=== PATIENT | female | born 1965 | race Caucasian/White ===

== ENCOUNTER 2020-08-16 13:45 | Emergency (ER) | payer BC ==
--- NOTE | 2020-08-16 14:33 | EDM.PDOC ---
ED HPI GENERAL MEDICAL PROBLEM - General Chief Complaint: Lower Extremity Injury/Pain Stated Complaint: PAIN IN BOTH LEGS Time Seen by Provider: 08/16/20 14:00 Source of Information: Reports: Patient History Limitations: Reports: No Limitations - History of Present Illness INITIAL COMMENTS - FREE TEXT/NARRATIVE: Patient is a 55-year-old female who just moved here from [place] is not set up PMD presents today for pain to her lower extremities. Patient that she has some known diabetic foot wound that she is also concerned about. Patient states that took a long ride up here and is concerned she feels knots in her legs. Patient denies any shortness of breath or chest pain no fever chills. Patient states that she also has not been able get her diabetic medication is concerned about her sugar. left lower leg, left upper leg Pain Score (Numeric/FACES): 4 - Related Data Allergies Allergy/AdvReac Type Severity Reaction Status Date / Time No Known Allergies Allergy Verified 08/16/20 14:00 Home Meds: Home Meds Insulin Regular, Human [Novolin R] unit SQ QID 08/16/20 [History] Past Medical History Gastrointestinal History: Reports: Pancreatitis Genitourinary History: Reports: Other (See Below) Other Genitourinary History: Major Kidney Infections Endocrine/Metabolic History: Reports: Diabetes, Type II - Past Surgical History GI Surgical History: Reports: Cholecystectomy Social & Family History - Family History Family Medical History: No Pertinent Family History - Tobacco Use Tobacco Use Status *Q: Former Tobacco User Used Tobacco, but Quit: Yes Month/Year Tobacco Last Used: 2008 - Recreational Drug Use Recreational Drug Use: No Review of Systems - Review of Systems Review Of Systems: See Below Constitutional: Reports: No Symptoms Eyes: Reports: No Symptoms Ears: Reports: No Symptoms Nose: Reports: No Symptoms Mouth/Throat: Reports: No Symptoms Respiratory: Reports: No Symptoms Cardiovascular: Reports: No Symptoms GI/Abdominal: Reports: No Symptoms Genitourinary: Reports: No Symptoms Musculoskeletal: Reports: Leg Pain Skin: Reports: No Symptoms Neurological: Reports: No Symptoms Psychiatric: Reports: No Symptoms ED EXAM, GENERAL - Physical Exam Exam: See Below Exam Limited By: No Limitations General Appearance: Alert, WD/WN Respiratory/Chest: No Respiratory Distress, Lungs Clear Cardiovascular: Normal Peripheral Pulses, Regular Rate, Rhythm Peripheral Pulses: 2+: Dorsalis Pedis (L), Dorsalis Pedis (R) GI/Abdominal: Normal Bowel Sounds, Soft, Non-Tender Extremities: Normal Inspection, Normal Range of Motion. No: Non-Tender Neurological: Alert, Oriented Course - Vital Signs Last Recorded V/S: Last Vital Signs Temp 96.9 F 08/16/20 13:56 Pulse 107 H 08/16/20 13:56 Resp 20 08/16/20 13:56 BP 134/83 08/16/20 13:56 Pulse Ox 96 08/16/20 13:56 - Orders/Labs/Meds Labs: Laboratory Tests 08/16/20 08/16/20 Range/Units 14:53 14:53 WBC 12.95 H (4.0-11.0) K/uL RBC 4.50 (4.30-5.90) M/uL Hgb 14.4 (12.0-16.0) g/dL Hct 41.6 (36.0-46.0) % MCV 92.4 (80.0-98.0) fL MCH 32.0 (27.0-32.0) pg MCHC 34.6 (31.0-37.0) g/dL RDW Std Deviation 41.5 (28.0-62.0) fl RDW Coeff of Olimpia 12 (11.0-15.0) % Plt Count 265 (150-400) K/uL MPV 10.70 (7.40-12.00) fL Neut % (Auto) 67.0 (48.0-80.0) % Lymph % (Auto) 23.1 (16.0-40.0) % Bullock % (Auto) 7.6 (0.0-15.0) % Eos % (Auto) 2.0 (0.0-7.0) % Baso % (Auto) 0.3 (0.0-1.5) % Neut # (Auto) 8.7 H (1.4-5.7) K/uL Lymph # (Auto) 3.0 H (0.6-2.4) K/uL Bullock # (Auto) 1.0 H (0.0-0.8) K/uL Eos # (Auto) 0.3 (0.0-0.7) K/uL Baso # (Auto) 0.0 (0.0-0.1) K/uL Nucleated RBC % 0.0 /100WBC Nucleated RBCs # 0 K/uL Sodium 136 (136-145) mmol/L Potassium 3.9 (3.5-5.1) mmol/L Chloride 100 (98-107) mmol/L Carbon Dioxide 25.8 (21.0-32.0) mmol/L BUN 9 (7.0-18.0) mg/dL Creatinine 0.9 (0.6-1.0) mg/dL Est Cr Clr Drug Dosing 62.80 mL/min Estimated GFR (MDRD) > 60.0 ml/min Glucose 255 H (74-106) mg/dL Calcium 9.3 (8.5-10.1) mg/dL Phosphorus 3.2 (2.6-4.7) mg/dL Magnesium 1.6 L (1.8-2.4) mg/dL Creatine Kinase 86 (26-308) U/L - Re-Assessments/Exams Free Text/Narrative Re-Assessment/Exam: 08/16/20 15:50 Patient DVT studies are negative. Patient sugar is less than 300 and she is not symptomatic. Will educate patient on proper blood sugar control and discharge have her follow-up with PMD. Departure - Departure Time of Disposition: 15:52 Disposition: Home, Self-Care 01 Condition: Good Clinical Impression: Neuropathy - Discharge Information *PRESCRIPTION DRUG MONITORING PROGRAM REVIEWED*: Not Applicable *COPY OF PRESCRIPTION DRUG MONITORING REPORT IN PATIENT BRISEYDA: Not Applicable Instructions: Peripheral Neuropathy Referrals: PCP,None [Primary Care Provider] - Forms: ED Department Discharge Additional Instructions: The following information is given to patients seen in the emergency department who are being discharged to home. This information is to outline your options for follow-up care. We provide all patients seen in our emergency department with a follow-up referral. The need for follow-up, as well as the timing and circumstances, are variable depending upon the specifics of your emergency department visit. If you don't have a primary care physician on staff, we will provide you with a referral. We always advise you to contact your personal physician following an emergency department visit to inform them of the circumstance of the visit and for follow-up with them and/or the need for any referrals to a consulting specialist. The emergency department will also refer you to a specialist when appropriate. This referral assures that you have the opportunity for follow-up care with a specialist. All of these measure are taken in an effort to provide you with optimal care, which includes your follow-up. Under all circumstances we always encourage you to contact your private physician who remains a resource for coordinating your care. When calling for follow-up care, please make the office aware that this follow-up is from your recent emergency room visit. If for any reason you are refused follow-up, please contact the [facility] Emergency Department at and asked to speak to the emergency department charge nurse. Please follow up with your primary care physician. If you do not have a primary care physician, see below: [facility] [address] [place] [id number] My [facility] [address] [place] [address] Above are a list of primary care physicians. Please call and follow-up for regular care. If you have any other concerning symptoms or complaints please return to the ED. Sepsis Event Note (ED) - Evaluation Sepsis Screening Result: Possible Sepsis Risk - Focused Exam Vital Signs: Vital Signs Temp Pulse Resp BP Pulse Ox 08/16/20 13:56 96.9 F 107 H 20 134/83 96 - Assessment/Plan Plan: Patient is a 55-year-old female who presents today for lower extremity pain. Patient diabetic wounds have no redness no drainage looks to be well-healing. Patient has good pulses of the lower extremity. Will obtain a duplex of the lower extremities patient labs for patient's diabetes.
[2020-08-16 15:19] LABS: BLOOD UREA NITROGEN,BUN 9 mg/dL (7.0-18.0); CARBON DIOXIDE,CO2 25.8 mmol/L (21.0-32.0); CHLORIDE,CL 100 mmol/L (98-107); GLUCOSE RANDOM 255 mg/dL (74-106); POTASSIUM,K 3.9 mmol/L (3.5-5.1); SODIUM,NA 136 mmol/L (136-145)
--- NOTE | 2020-08-16 15:46 | US ---
CLINICAL HISTORY: 55-year-old with bilateral lower extremity pain. TECHNIQUE: Grayscale, color Doppler and compression sonography of the bilateral lower extremity deep venous systems was performed. COMPARISON: None available. FINDINGS: There is no evidence for DVT in the bilateral lower extremities. Color flow, compressibility, and respiratory variation are seen in the bilateral lower extremity deep venous systems. There is no intraluminal echogenic material within these veins to suggest thrombus. IMPRESSION: 1. No evidence for DVT in the bilateral lower extremities. Dictated by Shant Singer MD @ Aug 16 2020 3:45PM Signed by Dr. Shant Singer @ Aug 16 2020 3:45PM
== END 2020-08-16 16:12 | disposition home or self-care (01) ==
LOC: MW.ED 13:45
DX: E11.42 Type 2 diabetes mellitus with diabetic polyneuropathy (principal); Z87.891 Personal history of nicotine dependence; Z79.4 Long term (current) use of insulin
CPT/HCPCS: 36415; 80048; 82550; 83735; 84100; 85025; 93970; 93970-26; 99284-25

== ENCOUNTER 2020-09-07 10:14 | Inpatient (IN) | payer BC ==
[2020-09-07] MEDS ORDERED: Piperacillin/Tazobactam 3.375 GM in Sodium Chloride 0.9% 50 ML IV ONE (11:43)
[2020-09-07] MEDS ORDERED: Sodium Chloride 0.9% 2.5 ML Syringe FLUSH PRN ×2 (11:43→15:35)
[2020-09-07] MEDS ORDERED: Acetaminophen/oxyCODONE 325-5 MG Tab PO ONE (11:43)
[2020-09-07] MEDS ORDERED: Sodium Chloride 0.9% 10 ML Syringe FLUSH PRN (11:43)
[2020-09-07] MEDS ORDERED: Sodium Chloride 0.9% 1,000 ML IV ONE (11:43)
--- NOTE | 2020-09-07 12:03 | EDM.PDOC ---
ED HPI GENERAL MEDICAL PROBLEM - General Chief Complaint: Lower Extremity Injury/Pain Stated Complaint: LEG PAIN;FOOT ULCER Time Seen by Provider: 09/07/20 10:19 Source of Information: Reports: Patient History Limitations: Reports: No Limitations - History of Present Illness INITIAL COMMENTS - FREE TEXT/NARRATIVE: 55-year-old female past medical history of poorly controlled diabetes, HTN presents for right diabetic foot infection. Patient notes that she was hospitalized last week for IV antibiotics and was sent home with podiatry follow-up. She saw the vp digital marketing on Saturday and had the wound packed and was placed on doxycycline. She notes worsening symptoms ever since with redness now tracking up her leg and intense pain in the foot and leg. She states that the vp digital marketing had told her that the infection was not in the bone but looked like it was getting close. She notes subjective fevers, chills. Legs Pain Score (Numeric/FACES): 9 - Related Data Allergies Allergy/AdvReac Type Severity Reaction Status Date / Time No Known Allergies Allergy Verified 08/25/20 00:55 Home Meds: Home Meds Insulin Regular, Human [Novolin R] unit SQ QID 08/16/20 [History] Gabapentin [Neurontin] 300 mg PO DAILY 08/24/20 [History] atorvaSTATin [Lipitor] 20 mg PO DAILY 08/24/20 [History] lisinopriL [Lisinopril] 20 mg PO BID 08/24/20 [History] metFORMIN HCl [Metformin HCl] 1,000 mg PO BIDMEALS 08/24/20 [History] DULoxetine [Cymbalta] 30 mg PO DAILY 08/26/20 [History] Doxycycline [Vibramycin] 100 mg PO Q12HR 7 Days #14 cap 08/27/20 [Rx] Past Medical History HEENT History: Reports: Impaired Vision Other HEENT History: patient wears eyeglasses Cardiovascular History: Reports: High Cholesterol, Hypertension Gastrointestinal History: Reports: Pancreatitis Genitourinary History: Reports: Other (See Below) Other Genitourinary History: Major Kidney Infections Neurological History: Reports: Neuropathy, Diabetic Endocrine/Metabolic History: Reports: Diabetes, Type II - Infectious Disease History Infectious Disease History: Reports: Chicken Pox, Measles - Past Surgical History HEENT Surgical History: Reports: None Cardiovascular Surgical History: Reports: None GI Surgical History: Reports: Cholecystectomy Endocrine Surgical History: Reports: None Neurological Surgical History: Reports: None Social & Family History - Family History Family Medical History: No Pertinent Family History - Tobacco Use Tobacco Use Status *Q: Never Tobacco User - Caffeine Use Caffeine Use: Reports: None Other Caffeine Use: flavored water - Recreational Drug Use Recreational Drug Use: No Review of Systems - Review of Systems Review Of Systems: Comprehensive ROS is negative, except as noted in HPI. ED EXAM, GENERAL - Physical Exam Exam: See Below Exam Limited By: No Limitations General Appearance: Alert, WD/WN, No Apparent Distress Throat/Mouth: Normal Voice, No Airway Compromise Head: Atraumatic, Normocephalic Neck: Normal Inspection Respiratory/Chest: No Respiratory Distress, Lungs Clear, Normal Breath Sounds, No Accessory Muscle Use Cardiovascular: Normal Peripheral Pulses, Tachycardia GI/Abdominal: Soft, Non-Tender Extremities: Other (swelling, erythema, TTP of R foot tracking up distal leg; foul smelling drainage from dorsal foot ulcer and from wound in webbing of 1st and 2nd digits; left food is with healing chronic ulceration that does not appear acutely infected) Neurological: Alert Psychiatric: Normal Affect, Normal Mood Skin Exam: Warm, Dry, Intact, Normal Color #1 Interpretation EKG Date: 09/07/20 Time: 12:24 Rhythm: Other (sinus tachycardia) Rate (Beats/Min): 101 [place]: Normal P-Wave: Present QRS: Normal ST-T: Normal QT: Normal ND/PQ Interval: 150 EKG Interpretation Comments: RBBB, LAFB, non-ischemic Course - Vital Signs Last Recorded V/S: Last Vital Signs Temp 98.2 F 09/07/20 11:26 Pulse 110 H 09/07/20 11:26 Resp 18 09/07/20 11:26 BP 140/84 09/07/20 11:26 Pulse Ox 96 09/07/20 11:26 - Orders/Labs/Meds Orders: Active Orders 24 hr Category Date Time Status EKG Documentation Completion [RC] STAT Care 09/07/20 11:43 Active CORONAVIRUS COVID-19 YOUNG [MOLEC] Stat Lab 09/07/20 11:43 Ordered CULTURE BLOOD [BC] Stat Lab 09/07/20 12:10 Received CULTURE BLOOD [BC] Stat Lab 09/07/20 12:20 Received CULTURE WOUND [RM] Stat Lab 09/07/20 13:16 Ordered UA W/ТАТЬЯНА RFLX IF INDICATED [URIN] Stat Lab 09/07/20 11:45 Ordered Magnesium Sulfate/Water [Magnesium Sulfate in Water 2 Med 09/07/20 12:52 Active GM/50 ML] 2 gm Premix Bag 1 bag IV ONETIME Sodium Chloride 0.9% [Saline Flush] Med 09/07/20 11:43 Active 10 ml FLUSH ASDIRECTED PRN Sodium Chloride 0.9% [Saline Flush] Med 09/07/20 11:43 Active 2.5 ml FLUSH ASDIRECTED PRN Blood Culture x2 Reflex Set [OM.PC] Stat Oth 09/07/20 11:45 Ordered Saline Lock Insert [OM.PC] Stat Oth 09/07/20 11:43 Ordered Medication Orders Magnesium Sulfate 2 gm/ Premix 50 mls @ 50 mls/hr IV ONETIME ONE Stop: 09/07/20 13:51 Sodium Chloride (Sodium Chloride 0.9% 10 Ml Syringe) 10 ml FLUSH ASDIRECTED PRN PRN Reason: Keep Vein Open Last Admin: 09/07/20 12:27 Dose: 10 ml Documented by: [email or web address] Sodium Chloride (Sodium Chloride 0.9% 2.5 Ml Syringe) 2.5 ml FLUSH ASDIRECTED PRN PRN Reason: Keep Vein Open Last Admin: 09/07/20 12:27 Dose: 2.5 ml Documented by: [email or web address] Labs: Laboratory Tests 09/07/20 09/07/20 09/07/20 Range/Units 11:57 11:57 11:57 WBC 17.86 H (4.0-11.0) K/uL RBC 4.46 (4.30-5.90) M/uL Hgb 14.0 (12.0-16.0) g/dL Hct 41.5 (36.0-46.0) % MCV 93.0 (80.0-98.0) fL MCH 31.4 (27.0-32.0) pg MCHC 33.7 (31.0-37.0) g/dL RDW Std Deviation 40.6 (28.0-62.0) fl RDW Coeff of Olimpia 12 (11.0-15.0) % Plt Count 327 (150-400) K/uL MPV 10.50 (7.40-12.00) fL Neut % (Auto) 67.9 (48.0-80.0) % Lymph % (Auto) 17.8 (16.0-40.0) % Warrick % (Auto) 13.2 (0.0-15.0) % Eos % (Auto) 0.9 (0.0-7.0) % Baso % (Auto) 0.2 (0.0-1.5) % Neut # (Auto) 12.1 H (1.4-5.7) K/uL Lymph # (Auto) 3.2 H (0.6-2.4) K/uL Warrick # (Auto) 2.4 H (0.0-0.8) K/uL Eos # (Auto) 0.2 (0.0-0.7) K/uL Baso # (Auto) 0.0 (0.0-0.1) K/uL Nucleated RBC % 0.0 /100WBC Nucleated RBCs # 0 K/uL ESR 64 H (0-29) mm/hr Lactate 1.3 (0.20-2.00) mmol/L Sodium (136-145) mmol/L Potassium (3.5-5.1) mmol/L Chloride (98-107) mmol/L Carbon Dioxide (21.0-32.0) mmol/L BUN (7.0-18.0) mg/dL Creatinine (0.6-1.0) mg/dL Est Cr Clr Drug Dosing mL/min Estimated GFR (MDRD) ml/min Glucose (74-106) mg/dL Calcium (8.5-10.1) mg/dL Magnesium (1.8-2.4) mg/dL Total Bilirubin (0.2-1.0) mg/dL AST (15-37) IU/L ALT (14-63) IU/L Alkaline Phosphatase (46-116) U/L C-Reactive Protein (0.00-0.90) mg/dL Total Protein (6.4-8.2) g/dL Albumin (3.4-5.0) g/dL Globulin (2.6-4.0) g/dL Albumin/Globulin Ratio (0.9-1.6) 09/07/20 Range/Units 11:57 WBC (4.0-11.0) K/uL RBC (4.30-5.90) M/uL Hgb (12.0-16.0) g/dL Hct (36.0-46.0) % MCV (80.0-98.0) fL MCH (27.0-32.0) pg MCHC (31.0-37.0) g/dL RDW Std Deviation (28.0-62.0) fl RDW Coeff of Olimpia (11.0-15.0) % Plt Count (150-400) K/uL MPV (7.40-12.00) fL Neut % (Auto) (48.0-80.0) % Lymph % (Auto) (16.0-40.0) % Warrick % (Auto) (0.0-15.0) % Eos % (Auto) (0.0-7.0) % Baso % (Auto) (0.0-1.5) % Neut # (Auto) (1.4-5.7) K/uL Lymph # (Auto) (0.6-2.4) K/uL Warrick # (Auto) (0.0-0.8) K/uL Eos # (Auto) (0.0-0.7) K/uL Baso # (Auto) (0.0-0.1) K/uL Nucleated RBC % /100WBC Nucleated RBCs # K/uL ESR (0-29) mm/hr Lactate (0.20-2.00) mmol/L Sodium 133 L (136-145) mmol/L Potassium 3.8 (3.5-5.1) mmol/L Chloride 97 L (98-107) mmol/L Carbon Dioxide 27.4 (21.0-32.0) mmol/L BUN 14 (7.0-18.0) mg/dL Creatinine 1.0 (0.6-1.0) mg/dL Est Cr Clr Drug Dosing 58.81 mL/min Estimated GFR (MDRD) 57.4 ml/min Glucose 210 H (74-106) mg/dL Calcium 9.5 (8.5-10.1) mg/dL Magnesium 1.4 L (1.8-2.4) mg/dL Total Bilirubin 1.0 (0.2-1.0) mg/dL AST 21 (15-37) IU/L ALT 25 (14-63) IU/L Alkaline Phosphatase 70 (46-116) U/L C-Reactive Protein 20.40 H (0.00-0.90) mg/dL Total Protein 7.8 (6.4-8.2) g/dL Albumin 2.7 L (3.4-5.0) g/dL Globulin 5.1 H (2.6-4.0) g/dL Albumin/Globulin Ratio 0.5 L (0.9-1.6) Meds: Medications Generic Name Dose Route Start Last Admin Trade Name Freq PRN Reason Stop Dose Admin Magnesium Sulfate 2 gm/ Premix 50 mls @ 50 mls/hr 09/07/20 12:52 IV 09/07/20 13:51 ONETIME ONE Sodium Chloride 10 ml 09/07/20 11:43 09/07/20 12:27 Sodium Chloride 0.9% 10 Ml Syringe FLUSH 10 ml ASDIRECTED PRN Administration Keep Vein Open Sodium Chloride 2.5 ml 09/07/20 11:43 09/07/20 12:27 Sodium Chloride 0.9% 2.5 Ml Syringe FLUSH 2.5 ml ASDIRECTED PRN Administration Keep Vein Open Discontinued Medications Generic Name Dose Route Start Last Admin Trade Name Freq PRN Reason Stop Dose Admin Sodium Chloride 1,000 mls @ 999 mls/hr 09/07/20 11:43 09/07/20 12:25 Normal Saline IV 09/07/20 12:43 999 mls/hr .Bolus ONE Administration Vancomycin HCl 1,500 mg/ 100 mls @ 100 mls/hr 09/07/20 11:43 Sodium Chloride IV 09/07/20 12:42 ONETIME ONE Piperacillin Sod/Tazobactam 50 mls @ 100 mls/hr 09/07/20 11:43 09/07/20 12:27 Sod 3.375 gm/ Sodium Chloride IV 09/07/20 12:12 100 mls/hr ONETIME ONE Administration Oxycodone/Acetaminophen 2 tab 09/07/20 11:43 09/07/20 12:25 Acetaminophen/Oxycodone 325-5 Mg Tab PO 09/07/20 11:44 2 tab ONETIME ONE Administration - Re-Assessments/Exams Free Text/Narrative Re-Assessment/Exam: 09/07/20 12:05 We will get labs, will give IV antibiotics, will give medicine for pain, will get x-ray of the foot. 09/07/20 13:17 Labs remarkable for leukocytosis. Patient did have blood cultures done and has gotten IV antibiotics. We will get a wound culture now as well. Foot x-ray does not show any evidence of osteomyelitis although they recommend an MRI as well. Spoke with hospitalist Dr. Batres who agrees to admit patient under his service. Departure - Departure Time of Disposition: 13:17 Disposition: Admitted As Inpatient 65 Condition: Fair Clinical Impression: Cellulitis Qualifiers: Site of cellulitis: extremity Site of cellulitis of extremity: lower extremity Laterality: right Qualified Code(s): L03.115 - Cellulitis of right lower limb Diabetic ulcer of foot associated with diabetes mellitus due to underlying condition, limited to breakdown of skin Qualifiers: Diabetic foot ulcer location: unspecified part of foot Laterality: right Qualified Code(s): E08.621 - Diabetes mellitus due to underlying condition with foot ulcer; L97.511 - Non-pressure chronic ulcer of other part of right foot limited to breakdown of skin - Discharge Information Referrals: Mariela Chen MD [Primary Care Provider] - Forms: ED Department Discharge Sepsis Event Note (ED) - Evaluation Sepsis Screening Result: No Definite Risk - Focused Exam Vital Signs: Vital Signs Temp Pulse Resp BP Pulse Ox 09/07/20 11:26 98.2 F 110 H 18 140/84 96 - My Orders Last 24 Hours: My Active Orders 09/07/20 11:43 EKG Documentation Completion [RC] STAT CORONAVIRUS COVID-19 YOUNG [MOLEC] Stat Sodium Chloride 0.9% [Saline Flush] 10 ml FLUSH ASDIRECTED PRN Sodium Chloride 0.9% [Saline Flush] 2.5 ml FLUSH ASDIRECTED PRN Saline Lock Insert [OM.PC] Stat 09/07/20 11:45 UA W/ТАТЬЯНА RFLX IF INDICATED [URIN] Stat Blood Culture x2 Reflex Set [OM.PC] Stat 09/07/20 12:10 CULTURE BLOOD [BC] Stat 09/07/20 12:20 CULTURE BLOOD [BC] Stat 09/07/20 12:52 Magnesium Sulfate/Water [Magnesium Sulfate in Water 2 GM/50 ML] 2 gm Premix Bag 1 bag IV ONETIME 09/07/20 13:16 CULTURE WOUND [RM] Stat - Assessment/Plan Last 24 Hours: My Active Orders 09/07/20 11:43 EKG Documentation Completion [RC] STAT CORONAVIRUS COVID-19 YOUNG [MOLEC] Stat Sodium Chloride 0.9% [Saline Flush] 10 ml FLUSH ASDIRECTED PRN Sodium Chloride 0.9% [Saline Flush] 2.5 ml FLUSH ASDIRECTED PRN Saline Lock Insert [OM.PC] Stat 09/07/20 11:45 UA W/ТАТЬЯНА RFLX IF INDICATED [URIN] Stat Blood Culture x2 Reflex Set [OM.PC] Stat 09/07/20 12:10 CULTURE BLOOD [BC] Stat 09/07/20 12:20 CULTURE BLOOD [BC] Stat 09/07/20 12:52 Magnesium Sulfate/Water [Magnesium Sulfate in Water 2 GM/50 ML] 2 gm Premix Bag 1 bag IV ONETIME 09/07/20 13:16 CULTURE WOUND [RM] Stat
--- NOTE | 2020-09-07 12:18 | CR ---
Indication: Concern for osteomyelitis Comparison: CT foot August 24, 2020 Technique: AP and lateral views right foot were obtained Findings: There is no displaced fracture or dislocation. There is no obvious periostitis or bony erosion. The joint spaces are grossly preserved. There is mild to moderate dorsal soft tissue swelling. Impression: No obvious bony erosion with moderate dorsal soft tissue swelling. If there remains persistent clinical concern for evaluation of osteomyelitis follow-up with contrast enhanced MRI of the foot will be useful to assess for subtle osseous edema and enhancement. Dictated by Lance Guadalupe MD @ Sep 07 2020 12:16PM Signed by Dr. Lance Guadalupe @ Sep 07 2020 12:18PM
[2020-09-07 12:34] LABS: CARBON DIOXIDE,CO2 27.4 mmol/L (21.0-32.0); POTASSIUM,K 3.8 mmol/L (3.5-5.1)
[2020-09-07] MEDS ORDERED: Magnesium Sulfate/Water 2 GM in Premix Bag 1 BAG IV ONE (12:52)
[2020-09-07] MEDS ORDERED: VANCOmycin 1.5 GM/300 ML 1.5 GM in Premix Bag 1 BAG IV ONE (13:21)
[2020-09-07] MEDS ORDERED: Ondansetron 4 MG/2 ML SDV ONE (13:58)
[2020-09-07] MEDS ORDERED: Ondansetron 4 MG/2 ML SDV IVPUSH ONE (14:00)
--- NOTE | 2020-09-07 14:47 | PCM.HP.2 ---
H&P History of Present Illness - General Date of Service: 09/07/20 Admit Problem/Dx: Admission Diagnosis/Problem Admission Diagnosis/Problem Diabetic foot ulcer Source of Information: Patient, Old Records History Limitations: Reports: No Limitations - History of Present Illness Initial Comments - Free Text/Narative: This 55-year-old female with past medical history of HTN, diabetes type 2, and peripheral neuropathy presented to the ER today with complaints of increasing r edness, drainage and tenderness to her right lower extremity and foot. She reports that she was reversely admitted for treatment of diabetic foot ulcers to bilateral feet more so the left previously. She reports she saw podiatry, Dr. Pete on Saturday who deroofed and debrided some of the ulcers on her feet. Reports since then the redness to her right foot has increasingly worsened with tenderness on her upper ankle and lower calf. She reports that she has no sensation to her feet. She reports that the drainage has been somewhat purulent and clear to bloody in nature. She reports she is had some subjective fevers and chills at home. No chest pain shortness of breath or neck pain. No sinus congestion or sore throat. She denies any abdominal pain or dysuria. Denies any black or bloody bowel movements and no diarrhea. She denies any neurological concerns. She reports she quit smoking in 2008 denies any alcohol use and no recreational drug use. Reports blood sugars at home have been anywhere from 160-280s. She reports she has been compliant with insulin at home along with doxycycline that she was sent home on on discharge 08/27/2020. In the ER white count elevated at 17,860 hemoglobin 14 hematocrit 41.5. Platelets 327,000. Sodium 133 potassium 3.8 magnesium 1.4 BUN 14 creatinine 1.0. Glucose 210 CRP elevated at 20.4 ESR 64. Heart rate initially on arrival to ER was noted to be 110 with IV fluids and antibiotics heart rate improved to the 90s. Blood pressure has been stable. Lactic acid 1.3. She was treated with vancomycin and Zosyn in the ER. X-ray of the foot revealed no obvious bone erosion with moderate dorsal soft tissue swelling recommended if clinical concern for osteomyelitis follow-up with contrast-enhanced MRI of the foot. She will be admitted inpatient for diabetic foot ulcer and cellulitis to her right foot. PCP Dr. Tiana Chen Podiatry Dr. Pete Legs Pain Score (Numeric/FACES): 9 - Related Data Allergies/Adverse Reactions: Allergies Allergy/AdvReac Type Severity Reaction Status Date / Time No Known Allergies Allergy Verified 08/25/20 00:55 Home Medications: Home Meds Insulin Regular, Human [Novolin R] unit SQ QID 08/16/20 [History] Gabapentin [Neurontin] 300 mg PO DAILY 08/24/20 [History] atorvaSTATin [Lipitor] 20 mg PO DAILY 08/24/20 [History] lisinopriL [Lisinopril] 20 mg PO BID 08/24/20 [History] metFORMIN HCl [Metformin HCl] 1,000 mg PO BIDMEALS 08/24/20 [History] DULoxetine [Cymbalta] 30 mg PO DAILY 08/26/20 [History] Doxycycline [Vibramycin] 100 mg PO Q12HR 7 Days #14 cap 08/27/20 [Rx] Past Medical History HEENT History: Reports: Impaired Vision Other HEENT History: patient wears eyeglasses Cardiovascular History: Reports: High Cholesterol, Hypertension Gastrointestinal History: Reports: Pancreatitis Genitourinary History: Reports: Other (See Below) Other Genitourinary History: Major Kidney Infections Neurological History: Reports: Neuropathy, Diabetic Endocrine/Metabolic History: Reports: Diabetes, Type II - Infectious Disease History Infectious Disease History: Reports: Chicken Pox, Measles - Past Surgical History HEENT Surgical History: Reports: None Cardiovascular Surgical History: Reports: None GI Surgical History: Reports: Cholecystectomy Endocrine Surgical History: Reports: None Neurological Surgical History: Reports: None Social & Family History - Family History Family Medical History: No Pertinent Family History - Tobacco Use Tobacco Use Status *Q: Former Tobacco User Used Tobacco, but Quit: Yes Month/Year Tobacco Last Used: 2008 - Caffeine Use Caffeine Use: Reports: None Other Caffeine Use: flavored water - Alcohol Use Alcohol Use History: No - Recreational Drug Use Recreational Drug Use: No H&P Review of Systems - Review of Systems: Review Of Systems: See Below General: Reports: Fever, Chills, Malaise HEENT: Reports: No Symptoms. Denies: Headaches, Sinus Congestion, Sore Throat, Vertigo Pulmonary: Reports: No Symptoms. Denies: Shortness of Breath, Cough, Sputum Cardiovascular: Reports: No Symptoms. Denies: Chest Pain, Palpitations, Lightheadedness Gastrointestinal: Reports: No Symptoms. Denies: Abdominal Pain, Black Stool, Bloody Stool, Constipation, Diarrhea Genitourinary: Reports: No Symptoms. Denies: Dysuria, Frequency, Burning Musculoskeletal: Reports: Leg Pain Skin: Reports: Erythema, Wound (Right foot) Psychiatric: Reports: No Symptoms Neurological: Reports: No Symptoms Hematologic/Lymphatic: Reports: No Symptoms Immunologic: Reports: No Symptoms Exam - Exam Exam: See Below - Vital Signs Vital Signs: Last Vital Signs Temp 98.2 F 09/07/20 11:26 Pulse 95 09/07/20 13:01 Resp 17 09/07/20 13:01 BP 116/69 09/07/20 13:01 Pulse Ox 98 09/07/20 13:01 Weight: 104.326 kg - Exam Quality Assessment: DVT Prophylaxis. No: Supplemental Oxygen General: Alert, Oriented, Cooperative HEENT: Conjunctiva Clear, Posterior Pharynx Clear. No: Mucosa Moist & Norris (Try) Lungs: Clear to Auscultation, Normal Respiratory Effort Cardiovascular: Regular Rate, Regular Rhythm, Normal S1, Normal S2 GI/Abdominal Exam: Normal Bowel Sounds, Soft, Non-Tender Back Exam: Normal Inspection, Full Range of Motion Extremities: Normal Inspection, Normal Range of Motion, Non-Tender, Pedal Edema (+1 nonpitting edema noted to right foot) Skin: Wound (Wound noted between right great toe and second toe. This has bloody to yellow drainage noted with some erythema surrounding great toe and dorsum of foot that extends up to ankle but does not include ankle joint. There is also a plantar surface ulcer that is draining yellow fluid that is approximat) Skin Alteration Location (Drawings Not To Scale): 1 - Plantar surface ulcer noted that is approximately 2 cm circumferentially. Yellow to serous drainage noted from this site there is slight fluctuance felt underneath no pain sensation felt with palpation. No purulence noted upon palpation. 2 - Plantar surface ulcers noted to left foot these appear to be dried with old bloody drainage noted no erythema or drainage noted. 3 - Wound in between great toe and second toe with serosanguineous to bloody drainage noted. Wound bed appears to have significant amount of slough and some purulent drainage. Just underneath second toe there is noted to be erythema with some purple discoloration of the skin. Cellulitis does extend up towards the right ankle but does not include the ankle joint. Patient is able to move ankle joint appropriately without significant pain. Some fluctuance noted to p alpation of this wound bed. No significant purulent drainage expelled. Neuro Extensive - Mental Status: Alert, Oriented x3 Psychiatric: Alert, Normal Affect, Normal Mood - Patient Data Lab Results Last 24 hrs: Laboratory Results - last 24 hr 09/07/20 09/07/20 09/07/20 Range/Units 11:57 11:57 11:57 WBC 17.86 H (4.0-11.0) K/uL RBC 4.46 (4.30-5.90) M/uL Hgb 14.0 (12.0-16.0) g/dL Hct 41.5 (36.0-46.0) % MCV 93.0 (80.0-98.0) fL MCH 31.4 (27.0-32.0) pg MCHC 33.7 (31.0-37.0) g/dL RDW Std Deviation 40.6 (28.0-62.0) fl RDW Coeff of Olimpia 12 (11.0-15.0) % Plt Count 327 (150-400) K/uL MPV 10.50 (7.40-12.00) fL Neut % (Auto) 67.9 (48.0-80.0) % Lymph % (Auto) 17.8 (16.0-40.0) % Towner % (Auto) 13.2 (0.0-15.0) % Eos % (Auto) 0.9 (0.0-7.0) % Baso % (Auto) 0.2 (0.0-1.5) % Neut # (Auto) 12.1 H (1.4-5.7) K/uL Lymph # (Auto) 3.2 H (0.6-2.4) K/uL Towner # (Auto) 2.4 H (0.0-0.8) K/uL Eos # (Auto) 0.2 (0.0-0.7) K/uL Baso # (Auto) 0.0 (0.0-0.1) K/uL Nucleated RBC % 0.0 /100WBC Nucleated RBCs # 0 K/uL ESR 64 H (0-29) mm/hr Lactate 1.3 (0.20-2.00) mmol/L Sodium (136-145) mmol/L Potassium (3.5-5.1) mmol/L Chloride (98-107) mmol/L Carbon Dioxide (21.0-32.0) mmol/L BUN (7.0-18.0) mg/dL Creatinine (0.6-1.0) mg/dL Est Cr Clr Drug Dosing mL/min Estimated GFR (MDRD) ml/min Glucose (74-106) mg/dL Calcium (8.5-10.1) mg/dL Magnesium (1.8-2.4) mg/dL Total Bilirubin (0.2-1.0) mg/dL AST (15-37) IU/L ALT (14-63) IU/L Alkaline Phosphatase (46-116) U/L C-Reactive Protein (0.00-0.90) mg/dL Total Protein (6.4-8.2) g/dL Albumin (3.4-5.0) g/dL Globulin (2.6-4.0) g/dL Albumin/Globulin Ratio (0.9-1.6) 09/07/20 Range/Units 11:57 WBC (4.0-11.0) K/uL RBC (4.30-5.90) M/uL Hgb (12.0-16.0) g/dL Hct (36.0-46.0) % MCV (80.0-98.0) fL MCH (27.0-32.0) pg MCHC (31.0-37.0) g/dL RDW Std Deviation (28.0-62.0) fl RDW Coeff of Olimpia (11.0-15.0) % Plt Count (150-400) K/uL MPV (7.40-12.00) fL Neut % (Auto) (48.0-80.0) % Lymph % (Auto) (16.0-40.0) % Towner % (Auto) (0.0-15.0) % Eos % (Auto) (0.0-7.0) % Baso % (Auto) (0.0-1.5) % Neut # (Auto) (1.4-5.7) K/uL Lymph # (Auto) (0.6-2.4) K/uL Towner # (Auto) (0.0-0.8) K/uL Eos # (Auto) (0.0-0.7) K/uL Baso # (Auto) (0.0-0.1) K/uL Nucleated RBC % /100WBC Nucleated RBCs # K/uL ESR (0-29) mm/hr Lactate (0.20-2.00) mmol/L Sodium 133 L (136-145) mmol/L Potassium 3.8 (3.5-5.1) mmol/L Chloride 97 L (98-107) mmol/L Carbon Dioxide 27.4 (21.0-32.0) mmol/L BUN 14 (7.0-18.0) mg/dL Creatinine 1.0 (0.6-1.0) mg/dL Est Cr Clr Drug Dosing 58.81 mL/min Estimated GFR (MDRD) 57.4 ml/min Glucose 210 H (74-106) mg/dL Calcium 9.5 (8.5-10.1) mg/dL Magnesium 1.4 L (1.8-2.4) mg/dL Total Bilirubin 1.0 (0.2-1.0) mg/dL AST 21 (15-37) IU/L ALT 25 (14-63) IU/L Alkaline Phosphatase 70 (46-116) U/L C-Reactive Protein 20.40 H (0.00-0.90) mg/dL Total Protein 7.8 (6.4-8.2) g/dL Albumin 2.7 L (3.4-5.0) g/dL Globulin 5.1 H (2.6-4.0) g/dL Albumin/Globulin Ratio 0.5 L (0.9-1.6) Result Diagrams: 09/07/20 11:57 09/07/20 11:57 Sepsis Event Note - Evaluation Sepsis Screening Result: No Definite Risk - Focused Exam Vital Signs: Vital Signs Temp Pulse Resp BP Pulse Ox 09/07/20 13:01 95 17 116/69 98 09/07/20 12:31 100 18 127/79 95 09/07/20 11:26 98.2 F 110 H 18 140/84 96 - Problem List (1) Obesity SNOMED Code(s): 044762576, 173291821 ICD Code: E66.9 - OBESITY, UNSPECIFIED Status: Chronic Current Visit: Yes (2) Neuropathy SNOMED Code(s): 241136774 ICD Code: G62.9 - POLYNEUROPATHY, UNSPECIFIED Status: Chronic Current Visit: No (3) Hypertension SNOMED Code(s): 55254111 ICD Code: I10 - ESSENTIAL (PRIMARY) HYPERTENSION Status: Chronic Current Visit: No (4) Diabetic ulcer of foot associated with diabetes mellitus due to underlying condition, limited to breakdown of skin SNOMED Code(s): 516914392, 949752568 ICD Code: E08.621 - DIABETES MELLITUS DUE TO UNDERLYING CONDITION W FOOT ULCER; L97.501 - NON-PRS CHR ULCER OTH PRT UNSP FOOT LIMITED TO BRKDWN SKIN Status: Acute Current Visit: Yes Qualifiers: Diabetic foot ulcer location: unspecified part of foot Laterality: right Qualified Code(s): E08.621 - Diabetes mellitus due to underlying condition with foot ulcer; L97.511 - Non-pressure chronic ulcer of other part of right foot limited to breakdown of skin (5) Hyperlipemia SNOMED Code(s): 36429461 ICD Code: E78.5 - HYPERLIPIDEMIA, UNSPECIFIED Status: Chronic Current Visit: No (6) Hypomagnesemia SNOMED Code(s): 606769173 ICD Code: E83.42 - HYPOMAGNESEMIA Status: Acute Current Visit: Yes Problem List Initiated/Reviewed/Updated: Yes Orders Last 24hrs: Active Orders 24 hr Category Date Time Status Patient Status [ADT] Routine ADT 09/07/20 13:20 Active EKG Documentation Completion [RC] STAT Care 09/07/20 11:43 Active Foot w wo Cont Rt [MR] Urgent Exams 09/07/20 13:46 Ordered CORONAVIRUS COVID-19 YOUNG [MOLEC] Stat Lab 09/07/20 11:43 Ordered CULTURE BLOOD [BC] Stat Lab 09/07/20 12:10 Received CULTURE BLOOD [BC] Stat Lab 09/07/20 12:20 Received CULTURE WOUND [RM] Stat Lab 09/07/20 13:16 Ordered UA W/ТАТЬЯНА RFLX IF INDICATED [URIN] Stat Lab 09/07/20 11:45 Ordered Sodium Chloride 0.9% [Saline Flush] Med 09/07/20 11:43 Active 10 ml FLUSH ASDIRECTED PRN Sodium Chloride 0.9% [Saline Flush] Med 09/07/20 11:43 Active 2.5 ml FLUSH ASDIRECTED PRN VANCOmycin 1.5 GM/300 ML 1.5 gm Med 09/07/20 13:21 Active Premix Bag 1 bag IV ONETIME Blood Culture x2 Reflex Set [OM.PC] Stat Oth 09/07/20 11:45 Ordered Saline Lock Insert [OM.PC] Stat Oth 09/07/20 11:43 Ordered Medication Orders Vancomycin HCl 1.5 gm/ Premix 300 mls @ 200 mls/hr IV ONETIME ONE Stop: 09/07/20 14:50 Last Admin: 09/07/20 14:00 Dose: 200 mls/hr Documented by: [id number] Sodium Chloride (Sodium Chloride 0.9% 10 Ml Syringe) 10 ml FLUSH ASDIRECTED PRN PRN Reason: Keep Vein Open Last Admin: 09/07/20 12:27 Dose: 10 ml Documented by: [id number] Sodium Chloride (Sodium Chloride 0.9% 2.5 Ml Syringe) 2.5 ml FLUSH ASDIRECTED PRN PRN Reason: Keep Vein Open Last Admin: 09/07/20 12:27 Dose: 2.5 ml Documented by: [id number] Assessment/Plan Comment:: This 55-year-old female admitted with cellulitis and right foot diabetic ulcer. 1. Cellulitis/right foot diabetic ulcer -We will continue vancomycin and Zosyn -Normal saline 125 mL/h -Will obtain MRI of right foot with contrast to further evaluate risk of osteomyelitis. -I did update Dr. Pete so he is aware patient was admitted and would like to be notified of MRI results. -Blood cultures pending -Wound culture pending -Keep foot elevated as much as possible and nonweightbearing to right foot -Consult wound care 2. DM type II, uncontrolled -Blood sugar checks 3 times daily before meals and as needed -NovoLog sliding scale insulin with meals -Continue Novolin H 20 units twice daily -ADA diet 3. Hypertension/HLD -Monitor blood pressures we will hold lisinopril today due to softer blood pressure in the ER -Continue statin 4. Hypomagnesemia - repleted in ED - recheck in am. VTE prophylaxis: Lovenox CODE STATUS: Full code Dispo: 2 to 3 days pending improvement.
[2020-09-07] MEDS: Sodium Chloride 0.9% 1,000 ML IV SCH (15:14)
[2020-09-07] MEDS ORDERED: Ondansetron 4 MG/2 ML SDV IVPUSH PRN (15:35)
[2020-09-07] MEDS ORDERED: Docusate Sodium 100 MG Cap PO PRN (15:35)
[2020-09-07] MEDS ORDERED: Glucagon,Human Recombinant 1 MG Vial IM PRN (15:36)
[2020-09-07] MEDS ORDERED: 50% Dextrose in Water 50 ML Syringe IV PRN (15:36)
[2020-09-07] MEDS: Enoxaparin 40 MG/0.4 ML Syringe SUBCUT SCH (18:23)
[2020-09-07] MEDS: Insulin Aspart 100 Units/ML 3 ML Pen SUBCUT SCH (18:24)
[2020-09-07] MEDS: Insulin Isophane NPH, Human 100 Units/ML 10 ML Vial SUBCUT SCH (18:24)
[2020-09-07] MEDS: Piperacillin/Tazobactam 4.5 GM in Sodium Chloride 0.9% 100 ML IV SCH (19:55)
[2020-09-08] MEDS: Sodium Chloride 0.9% 1,000 ML IV SCH ×3 (00:22→14:30)
[2020-09-08] MEDS: VANCOmycin 1.5 GM/300 ML 1.5 GM in Premix Bag 1 BAG IV SCH ×2 (02:26→14:27)
[2020-09-08] MEDS: Acetaminophen 325 MG Tab PO PRN ×2 (02:32→09:49)
[2020-09-08] MEDS: Piperacillin/Tazobactam 4.5 GM in Sodium Chloride 0.9% 100 ML IV SCH ×4 (04:29→21:39)
[2020-09-08 05:42] LABS: BLOOD UREA NITROGEN,BUN 16 mg/dL (7.0-18.0); CARBON DIOXIDE,CO2 24.9 mmol/L (21.0-32.0); CHLORIDE,CL 103 mmol/L (98-107); GLUCOSE RANDOM 171 mg/dL (74-106); SODIUM,NA 138 mmol/L (136-145)
[2020-09-08] MEDS ORDERED: Gadobenate Dimeglumine 529 MG/ML 20 ML SDV IVPUSH STA (07:37)
[2020-09-08] MEDS: Insulin Aspart 100 Units/ML 3 ML Pen SUBCUT SCH ×3 (08:56→18:38)
[2020-09-08] MEDS: Insulin Isophane NPH, Human 100 Units/ML 10 ML Vial SUBCUT SCH ×2 (09:04→16:32)
--- NOTE | 2020-09-08 10:14 | MR ---
INDICATION: Diabetic foot infection. TECHNIQUE: Right foot MRI with and without contrast, 20 mL MultiHance intravenous. COMPARISON: Right foot radiographs 09/07/[address] 08/24/2020. FINDINGS: Plantar ulcer overlying the 2nd metatarsal head. Extending dorsally from the ulcer is an irregular multilobulated rim-enhancing collection measuring approximately 3.4 x 2.1 x 3.1 cm (series 1001, image 17; series 1101, image 14), centered within the 1st webspace and interdigitating between the 1st and 2nd metatarsophalangeal joints. The dorsal aspect of the collection is in close proximity to the skin surface overlying the 2nd proximal phalanx, and possibly reflecting another open wound. Multiple tiny foci of susceptibility artifact within the dorsal aspect of the collection, most compatible with gaseous locules. Notably, collection appears to involve the distal aspect of the 2nd extensor tendon, demonstrating abnormal tenosynovial hyperenhancement to the level of the 2nd metatarsal base. - Small joint effusions involving the 1st and 2nd metatarsophalangeal joints with thick synovial hyperenhancement. Surrounding the 2nd metatarsophalangeal joint, there is mild STIR hyperintense signal abnormality as well as postcontrast hyperenhancement involving the 2nd metatarsal head and proximal aspect of the 2nd proximal phalanx (reference coronal image 10 and sagittal image 17), however, no corresponding confluent T1 hypointense signal abnormality or cortical destruction definitively identified. Normal fatty marrow signal intensity appears preserved throughout the remainder of the foot. - Diffuse atrophy and fatty infiltration of the intrinsic foot musculature, as may be seen with denervation. Generalized soft tissue edema and skin thickening, predominating in the dorsal subcutaneous tissues. IMPRESSION: 1. Plantar ulcer overlying the 2nd metatarsal head. Irregular multilobulated abscess centered within the 1st web space, interdigitating between the 1st and 2nd MTP joints, and extending into the dorsal subcutaneous tissues. 2. Mild marrow edema and hyperenhancement involving the 2nd metatarsal head and 2nd proximal phalanx, favored to represent reactive osteitis though developing/early osteomyelitis is possible. 3. Small volume 1st and 2nd MTP joint effusions are nonspecific but may be seen with septic arthritis. 4. Second extensor tendon is partially involved by the aforementioned abscess with tenosynovitis extending proximally to the level of the 2nd metatarsal base. 5. Diffuse subcutaneous edema and skin thickening, as may be seen with cellulitis in the appropriate clinical setting. Dictated by Julian Magana MD @ 09/08/2020 10:12:27 AM Dictated by: Julian Magana MD @ 09/08/2020 10:12:40 (Electronically Signed)
--- NOTE | 2020-09-08 12:26 | PCM.PN ---
- General Info Date of Service: 09/08/20 - Review of Systems Systems Review Comment:: feeling better, nausea have improved, reports pain in her right foot - Patient Data Vitals - Most Recent: Last Vital Signs Temp 36.8 C 09/08/20 11:46 Pulse 79 09/08/20 11:46 Resp 15 09/08/20 11:46 BP 106/56 L 09/08/20 11:46 Pulse Ox 93 L 09/08/20 11:46 Weight - Most Recent: 102.965 kg I&O - Last 24 Hours: Intake & Output 09/07/20 09/08/20 09/08/20 22:59 06:59 14:59 Intake Total 600 Output Total 1250 Balance -650 Lab Results Last 24 Hours: Laboratory Results - last 24 hr 09/07/20 09/07/20 09/07/20 Range/Units 11:57 11:57 14:19 WBC (4.0-11.0) K/uL RBC (4.30-5.90) M/uL Hgb (12.0-16.0) g/dL Hct (36.0-46.0) % MCV (80.0-98.0) fL MCH (27.0-32.0) pg MCHC (31.0-37.0) g/dL RDW Std Deviation (28.0-62.0) fl RDW Coeff of [place] (11.0-15.0) % Plt Count (150-400) K/uL MPV (7.40-12.00) fL Neut % (Auto) (48.0-80.0) % Lymph % (Auto) (16.0-40.0) % [place] % (Auto) (0.0-15.0) % Eos % (Auto) (0.0-7.0) % Baso % (Auto) (0.0-1.5) % Neut # (Auto) (1.4-5.7) K/uL Lymph # (Auto) (0.6-2.4) K/uL [place] # (Auto) (0.0-0.8) K/uL Eos # (Auto) (0.0-0.7) K/uL Baso # (Auto) (0.0-0.1) K/uL Nucleated RBC % /100WBC Nucleated RBCs # K/uL ESR 64 H (0-29) mm/hr Sodium 133 L (136-145) mmol/L Potassium 3.8 (3.5-5.1) mmol/L Chloride 97 L (98-107) mmol/L Carbon Dioxide 27.4 (21.0-32.0) mmol/L BUN 14 (7.0-18.0) mg/dL Creatinine 1.0 (0.6-1.0) mg/dL Est Cr Clr Drug Dosing 58.81 mL/min Estimated GFR (MDRD) 57.4 ml/min Glucose 210 H (74-106) mg/dL POC Glucose (60-110) mg/dL Calcium 9.5 (8.5-10.1) mg/dL Magnesium 1.4 L (1.8-2.4) mg/dL Total Bilirubin 1.0 (0.2-1.0) mg/dL AST 21 (15-37) IU/L ALT 25 (14-63) IU/L Alkaline Phosphatase 70 (46-116) U/L C-Reactive Protein 20.40 H (0.00-0.90) mg/dL Total Protein 7.8 (6.4-8.2) g/dL Albumin 2.7 L (3.4-5.0) g/dL Globulin 5.1 H (2.6-4.0) g/dL Albumin/Globulin Ratio 0.5 L (0.9-1.6) Urine Color Urine Appearance Urine pH (5.0-8.0) Ur Specific [place] (1.001-1.035) Urine Protein (NEGATIVE) mg/dL Urine Glucose (UA) (NEGATIVE) mg/dL Urine Ketones (NEGATIVE) mg/dL Urine Occult Blood (NEGATIVE) Urine Nitrite (NEGATIVE) Urine Bilirubin (NEGATIVE) Urine Urobilinogen (<2.0) EU/dL Ur Leukocyte Esterase (NEGATIVE) Urine RBC (0-2/HPF) Urine WBC (0-5/HPF) Ur Epithelial Cells (NONE-FEW) Urine Bacteria (NEGATIVE) Urine Mucus (NONE-MOD) SARS-CoV-2 RNA (YOUNG) NEGATIVE (NEGATIVE) 09/07/20 09/07/20 09/07/20 Range/Units 16:39 18:22 20:45 WBC (4.0-11.0) K/uL RBC (4.30-5.90) M/uL Hgb (12.0-16.0) g/dL Hct (36.0-46.0) % MCV (80.0-98.0) fL MCH (27.0-32.0) pg MCHC (31.0-37.0) g/dL RDW Std Deviation (28.0-62.0) fl RDW Coeff of [place] (11.0-15.0) % Plt Count (150-400) K/uL MPV (7.40-12.00) fL Neut % (Auto) (48.0-80.0) % Lymph % (Auto) (16.0-40.0) % [place] % (Auto) (0.0-15.0) % Eos % (Auto) (0.0-7.0) % Baso % (Auto) (0.0-1.5) % Neut # (Auto) (1.4-5.7) K/uL Lymph # (Auto) (0.6-2.4) K/uL [place] # (Auto) (0.0-0.8) K/uL Eos # (Auto) (0.0-0.7) K/uL Baso # (Auto) (0.0-0.1) K/uL Nucleated RBC % /100WBC Nucleated RBCs # K/uL ESR (0-29) mm/hr Sodium (136-145) mmol/L Potassium (3.5-5.1) mmol/L Chloride (98-107) mmol/L Carbon Dioxide (21.0-32.0) mmol/L BUN (7.0-18.0) mg/dL Creatinine (0.6-1.0) mg/dL Est Cr Clr Drug Dosing mL/min Estimated GFR (MDRD) ml/min Glucose (74-106) mg/dL POC Glucose 241 H 283 H (60-110) mg/dL Calcium (8.5-10.1) mg/dL Magnesium (1.8-2.4) mg/dL Total Bilirubin (0.2-1.0) mg/dL AST (15-37) IU/L ALT (14-63) IU/L Alkaline Phosphatase (46-116) U/L C-Reactive Protein (0.00-0.90) mg/dL Total Protein (6.4-8.2) g/dL Albumin (3.4-5.0) g/dL Globulin (2.6-4.0) g/dL Albumin/Globulin Ratio (0.9-1.6) Urine Color YELLOW Urine Appearance SLT CLOUDY Urine pH 5.5 (5.0-8.0) Ur Specific [place] 1.025 (1.001-1.035) Urine Protein NEGATIVE (NEGATIVE) mg/dL Urine Glucose (UA) NEGATIVE (NEGATIVE) mg/dL Urine Ketones 15 H (NEGATIVE) mg/dL Urine Occult Blood TRACE-INTACT H (NEGATIVE) Urine Nitrite NEGATIVE (NEGATIVE) Urine Bilirubin NEGATIVE (NEGATIVE) Urine Urobilinogen 0.2 (<2.0) EU/dL Ur Leukocyte Esterase TRACE H (NEGATIVE) Urine RBC 1-3 (0-2/HPF) Urine WBC 5-7 (0-5/HPF) Ur Epithelial Cells MODERATE (NONE-FEW) Urine Bacteria 2+ H (NEGATIVE) Urine Mucus LIGHT (NONE-MOD) SARS-CoV-2 RNA (YOUNG) (NEGATIVE) 09/08/20 09/08/20 09/08/20 Range/Units 05:08 05:08 08:31 WBC 15.13 H (4.0-11.0) K/uL RBC 3.96 L (4.30-5.90) M/uL Hgb 12.3 (12.0-16.0) g/dL Hct 37.0 (36.0-46.0) % MCV 93.4 (80.0-98.0) fL MCH 31.1 (27.0-32.0) pg MCHC 33.2 (31.0-37.0) g/dL RDW Std Deviation 40.9 (28.0-62.0) fl RDW Coeff of [place] 12 (11.0-15.0) % Plt Count 323 (150-400) K/uL MPV 10.40 (7.40-12.00) fL Neut % (Auto) 70.4 (48.0-80.0) % Lymph % (Auto) 15.6 L (16.0-40.0) % [place] % (Auto) 11.4 (0.0-15.0) % Eos % (Auto) 2.4 (0.0-7.0) % Baso % (Auto) 0.2 (0.0-1.5) % Neut # (Auto) 10.7 H (1.4-5.7) K/uL Lymph # (Auto) 2.4 (0.6-2.4) K/uL [place] # (Auto) 1.7 H (0.0-0.8) K/uL Eos # (Auto) 0.4 (0.0-0.7) K/uL Baso # (Auto) 0.0 (0.0-0.1) K/uL Nucleated RBC % 0.0 /100WBC Nucleated RBCs # 0 K/uL ESR (0-29) mm/hr Sodium 138 (136-145) mmol/L Potassium 4.0 (3.5-5.1) mmol/L Chloride 103 (98-107) mmol/L Carbon Dioxide 24.9 (21.0-32.0) mmol/L BUN 16 (7.0-18.0) mg/dL Creatinine 0.9 (0.6-1.0) mg/dL Est Cr Clr Drug Dosing 62.80 mL/min Estimated GFR (MDRD) > 60.0 ml/min Glucose 171 H (74-106) mg/dL POC Glucose 160 H (60-110) mg/dL Calcium 8.5 (8.5-10.1) mg/dL Magnesium 2.0 (1.8-2.4) mg/dL Total Bilirubin (0.2-1.0) mg/dL AST (15-37) IU/L ALT (14-63) IU/L Alkaline Phosphatase (46-116) U/L C-Reactive Protein (0.00-0.90) mg/dL Total Protein (6.4-8.2) g/dL Albumin (3.4-5.0) g/dL Globulin (2.6-4.0) g/dL Albumin/Globulin Ratio (0.9-1.6) Urine Color Urine Appearance Urine pH (5.0-8.0) Ur Specific [place] (1.001-1.035) Urine Protein (NEGATIVE) mg/dL Urine Glucose (UA) (NEGATIVE) mg/dL Urine Ketones (NEGATIVE) mg/dL Urine Occult Blood (NEGATIVE) Urine Nitrite (NEGATIVE) Urine Bilirubin (NEGATIVE) Urine Urobilinogen (<2.0) EU/dL Ur Leukocyte Esterase (NEGATIVE) Urine RBC (0-2/HPF) Urine WBC (0-5/HPF) Ur Epithelial Cells (NONE-FEW) Urine Bacteria (NEGATIVE) Urine Mucus (NONE-MOD) SARS-CoV-2 RNA (YOUNG) (NEGATIVE) 09/08/20 Range/Units 11:33 WBC (4.0-11.0) K/uL RBC (4.30-5.90) M/uL Hgb (12.0-16.0) g/dL Hct (36.0-46.0) % MCV (80.0-98.0) fL MCH (27.0-32.0) pg MCHC (31.0-37.0) g/dL RDW Std Deviation (28.0-62.0) fl RDW Coeff of [place] (11.0-15.0) % Plt Count (150-400) K/uL MPV (7.40-12.00) fL Neut % (Auto) (48.0-80.0) % Lymph % (Auto) (16.0-40.0) % [place] % (Auto) (0.0-15.0) % Eos % (Auto) (0.0-7.0) % Baso % (Auto) (0.0-1.5) % Neut # (Auto) (1.4-5.7) K/uL Lymph # (Auto) (0.6-2.4) K/uL [place] # (Auto) (0.0-0.8) K/uL Eos # (Auto) (0.0-0.7) K/uL Baso # (Auto) (0.0-0.1) K/uL Nucleated RBC % /100WBC Nucleated RBCs # K/uL ESR (0-29) mm/hr Sodium (136-145) mmol/L Potassium (3.5-5.1) mmol/L Chloride (98-107) mmol/L Carbon Dioxide (21.0-32.0) mmol/L BUN (7.0-18.0) mg/dL Creatinine (0.6-1.0) mg/dL Est Cr Clr Drug Dosing mL/min Estimated GFR (MDRD) ml/min Glucose (74-106) mg/dL POC Glucose 284 H (60-110) mg/dL Calcium (8.5-10.1) mg/dL Magnesium (1.8-2.4) mg/dL Total Bilirubin (0.2-1.0) mg/dL AST (15-37) IU/L ALT (14-63) IU/L Alkaline Phosphatase (46-116) U/L C-Reactive Protein (0.00-0.90) mg/dL Total Protein (6.4-8.2) g/dL Albumin (3.4-5.0) g/dL Globulin (2.6-4.0) g/dL Albumin/Globulin Ratio (0.9-1.6) Urine Color Urine Appearance Urine pH (5.0-8.0) Ur Specific [place] (1.001-1.035) Urine Protein (NEGATIVE) mg/dL Urine Glucose (UA) (NEGATIVE) mg/dL Urine Ketones (NEGATIVE) mg/dL Urine Occult Blood (NEGATIVE) Urine Nitrite (NEGATIVE) Urine Bilirubin (NEGATIVE) Urine Urobilinogen (<2.0) EU/dL Ur Leukocyte Esterase (NEGATIVE) Urine RBC (0-2/HPF) Urine WBC (0-5/HPF) Ur Epithelial Cells (NONE-FEW) Urine Bacteria (NEGATIVE) Urine Mucus (NONE-MOD) SARS-CoV-2 RNA (YOUNG) (NEGATIVE) Kofi Results Last 24 Hours: Microbiology 09/07/20 12:20 Aerobic Blood Culture - Preliminary Blood - Venous - Lab Draw NO GROWTH AFTER 1 DAY Anaerobic Blood Culture - Preliminary NO GROWTH AFTER 1 DAY 09/07/20 12:10 Aerobic Blood Culture - Preliminary Blood - Venous NO GROWTH AFTER 1 DAY Anaerobic Blood Culture - Preliminary NO GROWTH AFTER 1 DAY Med Orders - Current: Current Medications Acetaminophen (Acetaminophen 325 Mg Tab) 650 mg PO Q4H PRN PRN Reason: Pain (Mild 1-3)/fever Last Admin: 09/08/20 09:49 Dose: 650 mg Documented by: Dextrose/Water (50% Dextrose In Water 50 Ml Syringe) 50 ml IV ASDIRECTED PRN PRN Reason: Hypoglycemia Docusate Sodium (Docusate Sodium 100 Mg Cap) 100 mg PO BID PRN PRN Reason: Constipation Enoxaparin Sodium (Enoxaparin 40 Mg/0.4 Ml Syringe) 40 mg SUBCUT Q24H [facility] Last Admin: 09/07/20 18:23 Dose: 40 mg Documented by: Glucagon (Glucagon,Human Recombinant 1 Mg Vial) 1 mg IM ASDIRECTED PRN PRN Reason: Hypoglycemia Sodium Chloride (Normal Saline) 1,000 mls @ 125 mls/hr IV Q8H [facility] Last Admin: 09/08/20 10:24 Dose: Not Given Documented by: Vancomycin HCl 1.5 gm/ Premix 300 mls @ 200 mls/hr IV Q12H [facility] Last Admin: 09/08/20 02:26 Dose: 200 mls/hr Documented by: Piperacillin Sod/Tazobactam (Sod 4.5 gm/ Sodium Chloride) 100 mls @ 100 mls/hr IV Q6H [facility] Last Admin: 09/08/20 09:53 Dose: 100 mls/hr Documented by: Insulin Aspart (Insulin Aspart 100 Units/Ml 3 Ml Pen) 0 unit SUBCUT TIDAC [facility]; Protocol Last Admin: 09/08/20 12:03 Dose: 9 units Documented by: Insulin Human NPH (Insulin Isophane Nph, Human 100 Units/Ml 10 Ml Vial) 20 unit SUBCUT BIDAC [facility] Last Admin: 09/08/20 09:04 Dose: 20 units Documented by: Morphine Sulfate (Morphine 2 Mg/Ml Syringe) 2 mg IVPUSH Q2H PRN PRN Reason: Pain (severe 7-10) Ondansetron HCl (Ondansetron 4 Mg/2 Ml Sdv) 4 mg IVPUSH Q4H PRN PRN Reason: Nausea Oxycodone HCl (Oxycodone 5 Mg Tab) 5 mg PO Q4H PRN PRN Reason: Pain (moderate 4-6) Sodium Chloride (Sodium Chloride 0.9% 2.5 Ml Syringe) 2.5 ml FLUSH ASDIRECTED PRN PRN Reason: Keep Vein Open Vancomycin HCl (Pharmacy To Dose - Vancomycin) 1 dose .XX ASDIRECTED [facility] Discontinued Medications Gadobenate Dimeglumine (Gadobenate Dimeglumine 529 Mg/Ml 20 Ml Sdv) 20 ml IVPUSH ONETIME STA Stop: 09/08/20 07:38 Last Admin: 09/08/20 07:39 Dose: 20 ml Documented by: Sodium Chloride (Normal Saline) 1,000 mls @ 999 mls/hr IV .Bolus ONE Stop: 09/07/20 12:43 Last Admin: 09/07/20 12:25 Dose: 999 mls/hr Documented by: Vancomycin HCl 1,500 mg/ (Sodium Chloride) 100 mls @ 100 mls/hr IV ONETIME ONE Stop: 09/07/20 12:42 Last Admin: 09/07/20 13:22 Dose: Not Given Documented by: Piperacillin Sod/Tazobactam (Sod 3.375 gm/ Sodium Chloride) 50 mls @ 100 mls/hr IV ONETIME ONE Stop: 09/07/20 12:12 Last Admin: 09/07/20 12:27 Dose: 100 mls/hr Documented by: Magnesium Sulfate 2 gm/ Premix 50 mls @ 50 mls/hr IV ONETIME ONE Stop: 09/07/20 13:51 Last Admin: 09/07/20 14:00 Dose: 50 mls/hr Documented by: Vancomycin HCl 1.5 gm/ Premix 300 mls @ 200 mls/hr IV ONETIME ONE Stop: 09/07/20 14:50 Last Admin: 09/07/20 14:00 Dose: 200 mls/hr Documented by: Piperacillin Sod/Tazobactam (Sod 4.5 gm/ Sodium Chloride) 100 mls @ 100 mls/hr IV Q8H [facility] Last Admin: 09/08/20 04:29 Dose: 100 mls/hr Documented by: Ondansetron HCl (Ondansetron 4 Mg/2 Ml Sdv) Confirm Administered Dose 4 mg .ROUTE .STK-MED ONE Stop: 09/07/20 13:59 Last Admin: 09/07/20 14:03 Dose: Not Given Documented by: Ondansetron HCl (Ondansetron 4 Mg/2 Ml Sdv) 4 mg IVPUSH ONETIME ONE Stop: 09/07/20 14:01 Last Admin: 09/07/20 14:03 Dose: 4 mg Documented by: Oxycodone/Acetaminophen (Acetaminophen/Oxycodone 325-5 Mg Tab) 2 tab PO ONETIME ONE Stop: 09/07/20 11:44 Last Admin: 09/07/20 12:25 Dose: 2 tab Documented by: Sodium Chloride (Sodium Chloride 0.9% 10 Ml Syringe) 10 ml FLUSH ASDIRECTED PRN PRN Reason: Keep Vein Open Last Admin: 09/07/20 12:27 Dose: 10 ml Documented by: Sodium Chloride (Sodium Chloride 0.9% 2.5 Ml Syringe) 2.5 ml FLUSH ASDIRECTED PRN PRN Reason: Keep Vein Open Last Admin: 09/07/20 12:27 Dose: 2.5 ml Documented by: - Exam General: Alert, Oriented Lungs: Clear to Auscultation, Normal Respiratory Effort Cardiovascular: Regular Rate, Regular Rhythm GI/Abdominal Exam: Non-Tender Extremities: Other (erythema of rigth foot with minimal edema ulcur of bottom of 1-2 metatarsals with clear red drainage) - Patient Data Lab Results Last 24 hrs: Laboratory Results - last 24 hr 09/07/20 09/07/20 09/07/20 Range/Units 11:57 11:57 14:19 WBC (4.0-11.0) K/uL RBC (4.30-5.90) M/uL Hgb (12.0-16.0) g/dL Hct (36.0-46.0) % MCV (80.0-98.0) fL MCH (27.0-32.0) pg MCHC (31.0-37.0) g/dL RDW Std Deviation (28.0-62.0) fl RDW Coeff of [place] (11.0-15.0) % Plt Count (150-400) K/uL MPV (7.40-12.00) fL Neut % (Auto) (48.0-80.0) % Lymph % (Auto) (16.0-40.0) % [place] % (Auto) (0.0-15.0) % Eos % (Auto) (0.0-7.0) % Baso % (Auto) (0.0-1.5) % Neut # (Auto) (1.4-5.7) K/uL Lymph # (Auto) (0.6-2.4) K/uL [place] # (Auto) (0.0-0.8) K/uL Eos # (Auto) (0.0-0.7) K/uL Baso # (Auto) (0.0-0.1) K/uL Nucleated RBC % /100WBC Nucleated RBCs # K/uL ESR 64 H (0-29) mm/hr Sodium 133 L (136-145) mmol/L Potassium 3.8 (3.5-5.1) mmol/L Chloride 97 L (98-107) mmol/L Carbon Dioxide 27.4 (21.0-32.0) mmol/L BUN 14 (7.0-18.0) mg/dL Creatinine 1.0 (0.6-1.0) mg/dL Est Cr Clr Drug Dosing 58.81 mL/min Estimated GFR (MDRD) 57.4 ml/min Glucose 210 H (74-106) mg/dL POC Glucose (60-110) mg/dL Calcium 9.5 (8.5-10.1) mg/dL Magnesium 1.4 L (1.8-2.4) mg/dL Total Bilirubin 1.0 (0.2-1.0) mg/dL AST 21 (15-37) IU/L ALT 25 (14-63) IU/L Alkaline Phosphatase 70 (46-116) U/L C-Reactive Protein 20.40 H (0.00-0.90) mg/dL Total Protein 7.8 (6.4-8.2) g/dL Albumin 2.7 L (3.4-5.0) g/dL Globulin 5.1 H (2.6-4.0) g/dL Albumin/Globulin Ratio 0.5 L (0.9-1.6) Urine Color Urine Appearance Urine pH (5.0-8.0) Ur Specific [place] (1.001-1.035) Urine Protein (NEGATIVE) mg/dL Urine Glucose (UA) (NEGATIVE) mg/dL Urine Ketones (NEGATIVE) mg/dL Urine Occult Blood (NEGATIVE) Urine Nitrite (NEGATIVE) Urine Bilirubin (NEGATIVE) Urine Urobilinogen (<2.0) EU/dL Ur Leukocyte Esterase (NEGATIVE) Urine RBC (0-2/HPF) Urine WBC (0-5/HPF) Ur Epithelial Cells (NONE-FEW) Urine Bacteria (NEGATIVE) Urine Mucus (NONE-MOD) SARS-CoV-2 RNA (YOUNG) NEGATIVE (NEGATIVE) 09/07/20 09/07/20 09/07/20 Range/Units 16:39 18:22 20:45 WBC (4.0-11.0) K/uL RBC (4.30-5.90) M/uL Hgb (12.0-16.0) g/dL Hct (36.0-46.0) % MCV (80.0-98.0) fL MCH (27.0-32.0) pg MCHC (31.0-37.0) g/dL RDW Std Deviation (28.0-62.0) fl RDW Coeff of [place] (11.0-15.0) % Plt Count (150-400) K/uL MPV (7.40-12.00) fL Neut % (Auto) (48.0-80.0) % Lymph % (Auto) (16.0-40.0) % [place] % (Auto) (0.0-15.0) % Eos % (Auto) (0.0-7.0) % Baso % (Auto) (0.0-1.5) % Neut # (Auto) (1.4-5.7) K/uL Lymph # (Auto) (0.6-2.4) K/uL [place] # (Auto) (0.0-0.8) K/uL Eos # (Auto) (0.0-0.7) K/uL Baso # (Auto) (0.0-0.1) K/uL Nucleated RBC % /100WBC Nucleated RBCs # K/uL ESR (0-29) mm/hr Sodium (136-145) mmol/L Potassium (3.5-5.1) mmol/L Chloride (98-107) mmol/L Carbon Dioxide (21.0-32.0) mmol/L BUN (7.0-18.0) mg/dL Creatinine (0.6-1.0) mg/dL Est Cr Clr Drug Dosing mL/min Estimated GFR (MDRD) ml/min Glucose (74-106) mg/dL POC Glucose 241 H 283 H (60-110) mg/dL Calcium (8.5-10.1) mg/dL Magnesium (1.8-2.4) mg/dL Total Bilirubin (0.2-1.0) mg/dL AST (15-37) IU/L ALT (14-63) IU/L Alkaline Phosphatase (46-116) U/L C-Reactive Protein (0.00-0.90) mg/dL Total Protein (6.4-8.2) g/dL Albumin (3.4-5.0) g/dL Globulin (2.6-4.0) g/dL Albumin/Globulin Ratio (0.9-1.6) Urine Color YELLOW Urine Appearance SLT CLOUDY Urine pH 5.5 (5.0-8.0) Ur Specific [place] 1.025 (1.001-1.035) Urine Protein NEGATIVE (NEGATIVE) mg/dL Urine Glucose (UA) NEGATIVE (NEGATIVE) mg/dL Urine Ketones 15 H (NEGATIVE) mg/dL Urine Occult Blood TRACE-INTACT H (NEGATIVE) Urine Nitrite NEGATIVE (NEGATIVE) Urine Bilirubin NEGATIVE (NEGATIVE) Urine Urobilinogen 0.2 (<2.0) EU/dL Ur Leukocyte Esterase TRACE H (NEGATIVE) Urine RBC 1-3 (0-2/HPF) Urine WBC 5-7 (0-5/HPF) Ur Epithelial Cells MODERATE (NONE-FEW) Urine Bacteria 2+ H (NEGATIVE) Urine Mucus LIGHT (NONE-MOD) SARS-CoV-2 RNA (YOUNG) (NEGATIVE) 09/08/20 09/08/20 09/08/20 Range/Units 05:08 05:08 08:31 WBC 15.13 H (4.0-11.0) K/uL RBC 3.96 L (4.30-5.90) M/uL Hgb 12.3 (12.0-16.0) g/dL Hct 37.0 (36.0-46.0) % MCV 93.4 (80.0-98.0) fL MCH 31.1 (27.0-32.0) pg MCHC 33.2 (31.0-37.0) g/dL RDW Std Deviation 40.9 (28.0-62.0) fl RDW Coeff of [place] 12 (11.0-15.0) % Plt Count 323 (150-400) K/uL MPV 10.40 (7.40-12.00) fL Neut % (Auto) 70.4 (48.0-80.0) % Lymph % (Auto) 15.6 L (16.0-40.0) % [place] % (Auto) 11.4 (0.0-15.0) % Eos % (Auto) 2.4 (0.0-7.0) % Baso % (Auto) 0.2 (0.0-1.5) % Neut # (Auto) 10.7 H (1.4-5.7) K/uL Lymph # (Auto) 2.4 (0.6-2.4) K/uL [place] # (Auto) 1.7 H (0.0-0.8) K/uL Eos # (Auto) 0.4 (0.0-0.7) K/uL Baso # (Auto) 0.0 (0.0-0.1) K/uL Nucleated RBC % 0.0 /100WBC Nucleated RBCs # 0 K/uL ESR (0-29) mm/hr Sodium 138 (136-145) mmol/L Potassium 4.0 (3.5-5.1) mmol/L Chloride 103 (98-107) mmol/L Carbon Dioxide 24.9 (21.0-32.0) mmol/L BUN 16 (7.0-18.0) mg/dL Creatinine 0.9 (0.6-1.0) mg/dL Est Cr Clr Drug Dosing 62.80 mL/min Estimated GFR (MDRD) > 60.0 ml/min Glucose 171 H (74-106) mg/dL POC Glucose 160 H (60-110) mg/dL Calcium 8.5 (8.5-10.1) mg/dL Magnesium 2.0 (1.8-2.4) mg/dL Total Bilirubin (0.2-1.0) mg/dL AST (15-37) IU/L ALT (14-63) IU/L Alkaline Phosphatase (46-116) U/L C-Reactive Protein (0.00-0.90) mg/dL Total Protein (6.4-8.2) g/dL Albumin (3.4-5.0) g/dL Globulin (2.6-4.0) g/dL Albumin/Globulin Ratio (0.9-1.6) Urine Color Urine Appearance Urine pH (5.0-8.0) Ur Specific [place] (1.001-1.035) Urine Protein (NEGATIVE) mg/dL Urine Glucose (UA) (NEGATIVE) mg/dL Urine Ketones (NEGATIVE) mg/dL Urine Occult Blood (NEGATIVE) Urine Nitrite (NEGATIVE) Urine Bilirubin (NEGATIVE) Urine Urobilinogen (<2.0) EU/dL Ur Leukocyte Esterase (NEGATIVE) Urine RBC (0-2/HPF) Urine WBC (0-5/HPF) Ur Epithelial Cells (NONE-FEW) Urine Bacteria (NEGATIVE) Urine Mucus (NONE-MOD) SARS-CoV-2 RNA (YOUNG) (NEGATIVE) 09/08/20 Range/Units 11:33 WBC (4.0-11.0) K/uL RBC (4.30-5.90) M/uL Hgb (12.0-16.0) g/dL Hct (36.0-46.0) % MCV (80.0-98.0) fL MCH (27.0-32.0) pg MCHC (31.0-37.0) g/dL RDW Std Deviation (28.0-62.0) fl RDW Coeff of [place]lim[place] (11.0-15.0) % Plt Count (150-400) K/uL MPV (7.40-12.00) fL Neut % (Auto) (48.0-80.0) % Lymph % (Auto) (16.0-40.0) % [place] % (Auto) (0.0-15.0) % Eos % (Auto) (0.0-7.0) % Baso % (Auto) (0.0-1.5) % Neut # (Auto) (1.4-5.7) K/uL Lymph # (Auto) (0.6-2.4) K/uL [place] # (Auto) (0.0-0.8) K/uL Eos # (Auto) (0.0-0.7) K/uL Baso # (Auto) (0.0-0.1) K/uL Nucleated RBC % /100WBC Nucleated RBCs # K/uL ESR (0-29) mm/hr Sodium (136-145) mmol/L Potassium (3.5-5.1) mmol/L Chloride (98-107) mmol/L Carbon Dioxide (21.0-32.0) mmol/L BUN (7.0-18.0) mg/dL Creatinine (0.6-1.0) mg/dL Est Cr Clr Drug Dosing mL/min Estimated GFR (MDRD) ml/min Glucose (74-106) mg/dL POC Glucose 284 H (60-110) mg/dL Calcium (8.5-10.1) mg/dL Magnesium (1.8-2.4) mg/dL Total Bilirubin (0.2-1.0) mg/dL AST (15-37) IU/L ALT (14-63) IU/L Alkaline Phosphatase (46-116) U/L C-Reactive Protein (0.00-0.90) mg/dL Total Protein (6.4-8.2) g/dL Albumin (3.4-5.0) g/dL Globulin (2.6-4.0) g/dL Albumin/Globulin Ratio (0.9-1.6) Urine Color Urine Appearance Urine pH (5.0-8.0) Ur Specific [place] (1.001-1.035) Urine Protein (NEGATIVE) mg/dL Urine Glucose (UA) (NEGATIVE) mg/dL Urine Ketones (NEGATIVE) mg/dL Urine Occult Blood (NEGATIVE) Urine Nitrite (NEGATIVE) Urine Bilirubin (NEGATIVE) Urine Urobilinogen (<2.0) EU/dL Ur Leukocyte Esterase (NEGATIVE) Urine RBC (0-2/HPF) Urine WBC (0-5/HPF) Ur Epithelial Cells (NONE-FEW) Urine Bacteria (NEGATIVE) Urine Mucus (NONE-MOD) SARS-CoV-2 RNA (YUONG) (NEGATIVE) Result Diagrams: 09/08/20 05:08 09/08/20 05:08 Kofi Results Last 24 hrs: Microbiology 09/07/20 12:20 Aerobic Blood Culture - Preliminary Blood - Venous - Lab Draw NO GROWTH AFTER 1 DAY Anaerobic Blood Culture - Preliminary NO GROWTH AFTER 1 DAY 09/07/20 12:10 Aerobic Blood Culture - Preliminary Blood - Venous NO GROWTH AFTER 1 DAY Anaerobic Blood Culture - Preliminary NO GROWTH AFTER 1 DAY Sepsis Event Note - Evaluation Sepsis Screening Result: No Definite Risk - Focused Exam Vital Signs: Vital Signs Temp Pulse Resp BP Pulse Ox 09/08/20 11:46 36.8 C 79 15 106/56 L 93 L 09/08/20 08:45 36.6 C 82 16 127/74 97 09/08/20 04:00 36.8 C 82 20 118/68 95 - Problem List Review Problem List Initiated/Reviewed/Updated: Yes - My Orders Last 24 Hours: My Active Orders 09/08/20 12:20 Consult to Physician [CONS] Routine 09/08/20 12:22 Notify Provider Consults [RC] ASDIRECTED 09/09/20 05:11 BASIC METABOLIC PANEL,BMP [CHEM] AM CBC WITH AUTO DIFF [HEME] AM MAGNESIUM [CHEM] AM - Plan Plan:: This 55-year-old female admitted with cellulitis and right foot diabetic ulcer. 1. Cellulitis/right foot diabetic ulcer -We will continue vancomycin and Zosyn -Normal saline 125 mL/h -MRI shows ulcer with mulilobulated abscess involving tending -I did updated Dr. Pete regarding MRI results and he will come see the patient -Blood cultures pending -Wound culture pending -Keep foot elevated as much as possible and nonweightbearing to right foot -Consult wound care 2. DM type II, uncontrolled -Blood sugar checks 3 times daily before meals and as needed -NovoLog sliding scale insulin with meals -Continue Novolin H 20 units twice daily -ADA diet 3. Hypertension/HLD -Monitor blood pressures we will hold lisinopril today due to softer blood pressure in the ER -Continue statin VTE prophylaxis: Lovenox CODE STATUS: Full code Dispo: 2 to 3 days pending improvement.
[2020-09-08] MEDS ORDERED: Famotidine 20 MG/2 ML SDV IVPUSH ONE (14:03)
[2020-09-08] MEDS ORDERED: Metoclopramide 10 MG/2 ML SDV IVPUSH ONE (14:05)
[2020-09-08] MEDS: Gabapentin 300 MG Cap PO SCH (14:25)
--- NOTE | 2020-09-08 14:26 | PCM.PREANE ---
Preanesthetic Assessment - Anesthesia/Transfusion/Family Hx Anesthesia History: Prior Anesthesia Without Reaction Family History of Anesthesia Reaction: No Transfusion History: No Prior Transfusion(s) - Review of Systems General: No Symptoms Pulmonary: No Symptoms Cardiovascular: No Symptoms Gastrointestinal: No Symptoms Neurological: No Symptoms Other: Reports: None - Physical Assessment NPO Status Date: 09/08/20 NPO Status Time: 13:45 (lunch) Vital Signs: Last Vital Signs Temp 98.2 F 09/08/20 11:46 Pulse 79 09/08/20 11:46 Resp 15 09/08/20 11:46 BP 106/56 L 09/08/20 11:46 Pulse Ox 93 L 09/08/20 11:46 Height: 5 ft 5 in Weight: 227 lb ASA Class: 3E Mental Status: Alert & Oriented x3 Airway Class: Mallampati = 2 Dentition: Reports: Dentures ROM/Head Extension: Limited/Partial Lungs: Clear to Auscultation, Normal Respiratory Effort Cardiovascular: Regular Rate, Regular Rhythm - Lab Values: Laboratory Last Values WBC 15.13 K/uL (4.0-11.0) H 09/08/20 05:08 RBC 3.96 M/uL (4.30-5.90) L 09/08/20 05:08 Hgb 12.3 g/dL (12.0-16.0) 09/08/20 05:08 Hct 37.0 % (36.0-46.0) 09/08/20 05:08 MCV 93.4 fL (80.0-98.0) 09/08/20 05:08 MCH 31.1 pg (27.0-32.0) 09/08/20 05:08 MCHC 33.2 g/dL (31.0-37.0) 09/08/20 05:08 RDW Std Deviation 40.9 fl (28.0-62.0) 09/08/20 05:08 RDW Coeff of Olimpia 12 % (11.0-15.0) 09/08/20 05:08 Plt Count 323 K/uL (150-400) 09/08/20 05:08 MPV 10.40 fL (7.40-12.00) 09/08/20 05:08 Neut % (Auto) 70.4 % (48.0-80.0) 09/08/20 05:08 Lymph % (Auto) 15.6 % (16.0-40.0) L 09/08/20 05:08 [place] % (Auto) 11.4 % (0.0-15.0) 09/08/20 05:08 Eos % (Auto) 2.4 % (0.0-7.0) 09/08/20 05:08 Baso % (Auto) 0.2 % (0.0-1.5) 09/08/20 05:08 Neut # (Auto) 10.7 K/uL (1.4-5.7) H 09/08/20 05:08 Lymph # (Auto) 2.4 K/uL (0.6-2.4) 09/08/20 05:08 [place] # (Auto) 1.7 K/uL (0.0-0.8) H 09/08/20 05:08 Eos # (Auto) 0.4 K/uL (0.0-0.7) 09/08/20 05:08 Baso # (Auto) 0.0 K/uL (0.0-0.1) 09/08/20 05:08 Nucleated RBC % 0.0 /100WBC 09/08/20 05:08 Nucleated RBCs # 0 K/uL 09/08/20 05:08 ESR 64 mm/hr (0-29) H 09/07/20 11:57 Lactate 1.3 mmol/L (0.20-2.00) 09/07/20 11:57 Sodium 138 mmol/L (136-145) 09/08/20 05:08 Potassium 4.0 mmol/L (3.5-5.1) 09/08/20 05:08 Chloride 103 mmol/L (98-107) 09/08/20 05:08 Carbon Dioxide 24.9 mmol/L (21.0-32.0) 09/08/20 05:08 BUN 16 mg/dL (7.0-18.0) 09/08/20 05:08 Creatinine 0.9 mg/dL (0.6-1.0) 09/08/20 05:08 Est Cr Clr Drug Dosing 62.80 mL/min 09/08/20 05:08 Estimated GFR (MDRD) > 60.0 ml/min 09/08/20 05:08 Glucose 171 mg/dL (74-106) H 09/08/20 05:08 POC Glucose 284 mg/dL (60-110) H 09/08/20 11:33 Calcium 8.5 mg/dL (8.5-10.1) 09/08/20 05:08 Magnesium 2.0 mg/dL (1.8-2.4) 09/08/20 05:08 Total Bilirubin 1.0 mg/dL (0.2-1.0) 09/07/20 11:57 AST 21 IU/L (15-37) 09/07/20 11:57 ALT 25 IU/L (14-63) 09/07/20 11:57 Alkaline Phosphatase 70 U/L (46-116) 09/07/20 11:57 C-Reactive Protein 20.40 mg/dL (0.00-0.90) H 09/07/20 11:57 Total Protein 7.8 g/dL (6.4-8.2) 09/07/20 11:57 Albumin 2.7 g/dL (3.4-5.0) L 09/07/20 11:57 Globulin 5.1 g/dL (2.6-4.0) H 09/07/20 11:57 Albumin/Globulin Ratio 0.5 (0.9-1.6) L 09/07/20 11:57 Urine Color YELLOW 09/07/20 20:45 Urine Appearance SLT CLOUDY 09/07/20 20:45 Urine pH 5.5 (5.0-8.0) 09/07/20 20:45 Ur Specific [place] 1.025 (1.001-1.035) 09/07/20 20:45 Urine Protein NEGATIVE mg/dL (NEGATIVE) 09/07/20 20:45 Urine Glucose (UA) NEGATIVE mg/dL (NEGATIVE) 09/07/20 20:45 Urine Ketones 15 mg/dL (NEGATIVE) H 09/07/20 20:45 Urine Occult Blood TRACE-INTACT (NEGATIVE) H 09/07/20 20:45 Urine Nitrite NEGATIVE (NEGATIVE) 09/07/20 20:45 Urine Bilirubin NEGATIVE (NEGATIVE) 09/07/20 20:45 Urine Urobilinogen 0.2 EU/dL (<2.0) 09/07/20 20:45 Ur Leukocyte Esterase TRACE (NEGATIVE) H 09/07/20 20:45 Urine RBC 1-3 (0-2/HPF) 09/07/20 20:45 Urine WBC 5-7 (0-5/HPF) 09/07/20 20:45 Ur Epithelial Cells MODERATE (NONE-FEW) 09/07/20 20:45 Urine Bacteria 2+ (NEGATIVE) H 09/07/20 20:45 Urine Mucus LIGHT (NONE-MOD) 09/07/20 20:45 SARS-CoV-2 RNA (YOUNG) NEGATIVE (NEGATIVE) 09/07/20 14:19 - Allergies Allergies/Adverse Reactions: Allergies Allergy/AdvReac Type Severity Reaction Status Date / Time No Known Allergies Allergy Verified 09/07/20 16:22 - Anesthesia Plan Pre-Op Medication Ordered: Other - Acknowledgements Anesthesia Type Planned: MAC Pt an Appropriate Candidate for the Planned Anesthesia: Yes Alternatives and Risks of Anesthesia Discussed w Pt/Guardian: Yes Pt/Guardian Understands and Agrees with Anesthesia Plan: Yes Additional Comments: full lunch 1345 IDDM uncontrlled sugars on sliding scale htn no cv problems obesity bmi 38 infected foot lovenox dose last pm PLAN IV pepcid and Reglan now NPO minimal sedation in OR later today par no questions pt agrees to above plan 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 full dentures, MAL II aw PreAnesthesia Questionnaire HEENT History: Reports: Impaired Vision Other HEENT History: patient wears eyeglasses Cardiovascular History: Reports: High Cholesterol, Hypertension Respiratory History: Reports: Bronchitis, Recurrent Gastrointestinal History: Reports: Pancreatitis Genitourinary History: Reports: Other (See Below) Other Genitourinary History: Major Kidney Infections [employer] History: Reports: Musculoskeletal History: Reports: Arthritis, Other (See Below) Other Musculoskeletal History: lower back arthritis, R shoulder arthritis Neurological History: Reports: Neuropathy, Diabetic Psychiatric History: Reports: Depression Endocrine/Metabolic History: Reports: Diabetes, Type II - Infectious Disease History Infectious Disease History: Reports: Chicken Pox, Measles - Past Surgical History HEENT Surgical History: Reports: None Cardiovascular Surgical History: Reports: None Respiratory Surgical History: Reports: None GI Surgical History: Reports: Cholecystectomy Female Surgical History: Reports: None Endocrine Surgical History: Reports: None Neurological Surgical History: Reports: None Musculoskeletal Surgical History: Reports: Shoulder Surgery - SUBSTANCE USE Tobacco Use Status *Q: Former Tobacco User Tobacco Use Within Last Twelve Months: Cigarettes Recreational Drug Use History: No - HOME MEDS Home Medications: Home Meds Insulin Regular, Human [Novolin R] unit SQ QID 08/16/20 [History] Gabapentin [Neurontin] 300 mg PO DAILY 08/24/20 [History] atorvaSTATin [Lipitor] 20 mg PO DAILY 08/24/20 [History] lisinopriL [Lisinopril] 20 mg PO BID 08/24/20 [History] metFORMIN HCl [Metformin HCl] 1,000 mg PO BIDMEALS 08/24/20 [History] DULoxetine [Cymbalta] 30 mg PO DAILY 08/26/20 [History] Doxycycline [Vibramycin] 100 mg PO Q12HR 7 Days #14 cap 08/27/20 [Rx] - CURRENT (IN HOUSE) MEDS Current Meds: Current Medications Acetaminophen (Acetaminophen 325 Mg Tab) 650 mg PO Q4H PRN PRN Reason: Pain (Mild 1-3)/fever Last Admin: 09/08/20 09:49 Dose: 650 mg Documented by: Atorvastatin Calcium (Atorvastatin 20 Mg Tab) 20 mg PO BEDTIME [facility] Dextrose/Water (50% Dextrose In Water 50 Ml Syringe) 50 ml IV ASDIRECTED PRN PRN Reason: Hypoglycemia Docusate Sodium (Docusate Sodium 100 Mg Cap) 100 mg PO BID PRN PRN Reason: Constipation Duloxetine HCl (Duloxetine 30 Mg Cap) 30 mg PO DAILY [facility] Enoxaparin Sodium (Enoxaparin 40 Mg/0.4 Ml Syringe) 40 mg SUBCUT Q24H [facility] Last Admin: 09/07/20 18:23 Dose: 40 mg Documented by: Gabapentin (Gabapentin 300 Mg Cap) 300 mg PO DAILY [facility] Glucagon (Glucagon,Human Recombinant 1 Mg Vial) 1 mg IM ASDIRECTED PRN PRN Reason: Hypoglycemia Sodium Chloride (Normal Saline) 1,000 mls @ 125 mls/hr IV Q8H [facility] Last Admin: 09/08/20 10:24 Dose: Not Given Documented by: Vancomycin HCl 1.5 gm/ Premix 300 mls @ 200 mls/hr IV Q12H [facility] Last Admin: 09/08/20 02:26 Dose: 200 mls/hr Documented by: Piperacillin Sod/Tazobactam (Sod 4.5 gm/ Sodium Chloride) 100 mls @ 100 mls/hr IV Q6H [facility] Last Admin: 09/08/20 09:53 Dose: 100 mls/hr Documented by: Insulin Aspart (Insulin Aspart 100 Units/Ml 3 Ml Pen) 0 unit SUBCUT TIDAC [facility]; Protocol Last Admin: 09/08/20 12:03 Dose: 9 units Documented by: Insulin Human NPH (Insulin Isophane Nph, Human 100 Units/Ml 10 Ml Vial) 20 unit SUBCUT BIDAC [facility] Last Admin: 09/08/20 09:04 Dose: 20 units Documented by: Morphine Sulfate (Morphine 2 Mg/Ml Syringe) 2 mg IVPUSH Q2H PRN PRN Reason: Pain (severe 7-10) Ondansetron HCl (Ondansetron 4 Mg/2 Ml Sdv) 4 mg IVPUSH Q4H PRN PRN Reason: Nausea Oxycodone HCl (Oxycodone 5 Mg Tab) 5 mg PO Q4H PRN PRN Reason: Pain (moderate 4-6) Sodium Chloride (Sodium Chloride 0.9% 2.5 Ml Syringe) 2.5 ml FLUSH ASDIRECTED PRN PRN Reason: Keep Vein Open Vancomycin HCl (Pharmacy To Dose - Vancomycin) 1 dose .XX ASDIRECTED МАРИНА Discontinued Medications Famotidine (Famotidine 20 Mg/2 Ml Sdv) 40 mg IVPUSH ONETIME ONE Stop: 09/08/20 14:04 Gadobenate Dimeglumine (Gadobenate Dimeglumine 529 Mg/Ml 20 Ml Sdv) 20 ml IVPUSH ONETIME STA Stop: 09/08/20 07:38 Last Admin: 09/08/20 07:39 Dose: 20 ml Documented by: Sodium Chloride (Normal Saline) 1,000 mls @ 999 mls/hr IV .Bolus ONE Stop: 09/07/20 12:43 Last Admin: 09/07/20 12:25 Dose: 999 mls/hr Documented by: Vancomycin HCl 1,500 mg/ (Sodium Chloride) 100 mls @ 100 mls/hr IV ONETIME ONE Stop: 09/07/20 12:42 Last Admin: 09/07/20 13:22 Dose: Not Given Documented by: Piperacillin Sod/Tazobactam (Sod 3.375 gm/ Sodium Chloride) 50 mls @ 100 mls/hr IV ONETIME ONE Stop: 09/07/20 12:12 Last Admin: 09/07/20 12:27 Dose: 100 mls/hr Documented by: Magnesium Sulfate 2 gm/ Premix 50 mls @ 50 mls/hr IV ONETIME ONE Stop: 09/07/20 13:51 Last Admin: 09/07/20 14:00 Dose: 50 mls/hr Documented by: Vancomycin HCl 1.5 gm/ Premix 300 mls @ 200 mls/hr IV ONETIME ONE Stop: 09/07/20 14:50 Last Admin: 09/07/20 14:00 Dose: 200 mls/hr Documented by: Piperacillin Sod/Tazobactam (Sod 4.5 gm/ Sodium Chloride) 100 mls @ 100 mls/hr IV Q8H МАРИНА Last Admin: 09/08/20 04:29 Dose: 100 mls/hr Documented by: Metoclopramide HCl (Metoclopramide 10 Mg/2 Ml Sdv) 10 mg IVPUSH ONETIME ONE Stop: 09/08/20 14:06 Ondansetron HCl (Ondansetron 4 Mg/2 Ml Sdv) Confirm Administered Dose 4 mg .ROUTE .STK-MED ONE Stop: 09/07/20 13:59 Last Admin: 09/07/20 14:03 Dose: Not Given Documented by: Ondansetron HCl (Ondansetron 4 Mg/2 Ml Sdv) 4 mg IVPUSH ONETIME ONE Stop: 09/07/20 14:01 Last Admin: 09/07/20 14:03 Dose: 4 mg Documented by: Oxycodone/Acetaminophen (Acetaminophen/Oxycodone 325-5 Mg Tab) 2 tab PO ONETIME ONE Stop: 09/07/20 11:44 Last Admin: 09/07/20 12:25 Dose: 2 tab Documented by: Sodium Chloride (Sodium Chloride 0.9% 10 Ml Syringe) 10 ml FLUSH ASDIRECTED PRN PRN Reason: Keep Vein Open Last Admin: 09/07/20 12:27 Dose: 10 ml Documented by: Sodium Chloride (Sodium Chloride 0.9% 2.5 Ml Syringe) 2.5 ml FLUSH ASDIRECTED PRN PRN Reason: Keep Vein Open Last Admin: 09/07/20 12:27 Dose: 2.5 ml Documented by:
[2020-09-08] MEDS: Enoxaparin 40 MG/0.4 ML Syringe SUBCUT SCH (15:25)
[2020-09-08] MEDS ORDERED: Bupivacaine 0.5% 10 ML SDV ONE (16:47)
[2020-09-08] MEDS ORDERED: Lidocaine 1% 20 ML MDV ONE (16:47)
[2020-09-08] MEDS ORDERED: fentaNYL 100 MCG/2 ML SDV ONE (17:32)
[2020-09-08] MEDS ORDERED: Midazolam 1 MG/ML 2 ML SDV ONE (17:32)
--- NOTE | 2020-09-08 17:35 | PCM.CONS ---
H&P History of Present Illness - General Date of Service: 09/08/20 Admit Problem/Dx: Admission Diagnosis/Problem Admission Diagnosis/Problem Diabetic foot ulcer Source of Information: Patient, Provider History Limitations: Reports: No Limitations - History of Present Illness Onset of Symptoms: Reports: Gradual Duration of Symptoms: Reports: Constant Location: Reports: Lower Extremity, Right Quality: Reports: Throbbing Severity: Severe Associated Symptoms: Reports: Fever/Chills Right Leg Pain Score (Numeric/FACES): 6 Legs Pain Score (Numeric/FACES): 9 - Related Data Allergies/Adverse Reactions: Allergies Allergy/AdvReac Type Severity Reaction Status Date / Time No Known Allergies Allergy Verified 09/07/20 16:22 Home Medications: Home Meds Insulin Regular, Human [Novolin R] unit SQ QID 08/16/20 [History] Gabapentin [Neurontin] 300 mg PO DAILY 08/24/20 [History] atorvaSTATin [Lipitor] 20 mg PO DAILY 08/24/20 [History] lisinopriL [Lisinopril] 20 mg PO BID 08/24/20 [History] metFORMIN HCl [Metformin HCl] 1,000 mg PO BIDMEALS 08/24/20 [History] DULoxetine [Cymbalta] 30 mg PO DAILY 08/26/20 [History] Doxycycline [Vibramycin] 100 mg PO Q12HR 7 Days #14 cap 08/27/20 [Rx] Past Medical History HEENT History: Reports: Impaired Vision Other HEENT History: patient wears eyeglasses Cardiovascular History: Reports: High Cholesterol, Hypertension Respiratory History: Reports: Bronchitis, Recurrent Gastrointestinal History: Reports: Pancreatitis Genitourinary History: Reports: Other (See Below) Other Genitourinary History: Major Kidney Infections 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: Musculoskeletal History: Reports: Arthritis, Other (See Below) Other Musculoskeletal History: lower back arthritis, R shoulder arthritis Neurological History: Reports: Neuropathy, Diabetic Psychiatric History: Reports: Depression Endocrine/Metabolic History: Reports: Diabetes, Type II - Infectious Disease History Infectious Disease History: Reports: Chicken Pox, Measles - Past Surgical History HEENT Surgical History: Reports: None Cardiovascular Surgical History: Reports: None Respiratory Surgical History: Reports: None GI Surgical History: Reports: Cholecystectomy Female Surgical History: Reports: None Endocrine Surgical History: Reports: None Neurological Surgical History: Reports: None Musculoskeletal Surgical History: Reports: Shoulder Surgery Social & Family History - Family History Family Medical History: No Pertinent Family History - Tobacco Use Tobacco Use Status *Q: Former Tobacco User Used Tobacco, but Quit: Yes Month/Year Tobacco Last Used: 07/2008 - Caffeine Use Caffeine Use: Reports: Coffee, Energy Drinks, Soda, Tea Other Caffeine Use: flavored water - Recreational Drug Use Recreational Drug Use: No H&P Review of Systems - Review of Systems: Review Of Systems: Comprehensive ROS is negative, except as noted in HPI. Exam - Exam Exam: See Below - Vital Signs Vital Signs: Last Vital Signs Temp 36.9 C 09/08/20 16:00 Pulse 85 09/08/20 16:00 Resp 16 09/08/20 16:00 BP 110/68 09/08/20 16:00 Pulse Ox 95 09/08/20 16:00 Weight: 102.965 kg - Exam Peripheral Pulses: 1+: Posterior Tibial (L), Posterior Tibial (R), Dorsalis Pedis (L), Dorsalis Pedis (R) Skin: Wound (abscess bordering on ulceration right first web space and ulcer plantar ball of foot) - Patient Data Lab Results Last 24 hrs: Laboratory Results - last 24 hr 09/07/20 09/07/20 09/08/20 Range/Units 18:22 20:45 05:08 WBC 15.13 H (4.0-11.0) K/uL RBC 3.96 L (4.30-5.90) M/uL Hgb 12.3 (12.0-16.0) g/dL Hct 37.0 (36.0-46.0) % MCV 93.4 (80.0-98.0) fL MCH 31.1 (27.0-32.0) pg MCHC 33.2 (31.0-37.0) g/dL RDW Std Deviation 40.9 (28.0-62.0) fl RDW Coeff of Olimpia 12 (11.0-15.0) % Plt Count 323 (150-400) K/uL MPV 10.40 (7.40-12.00) fL Neut % (Auto) 70.4 (48.0-80.0) % Lymph % (Auto) 15.6 L (16.0-40.0) % [place] % (Auto) 11.4 (0.0-15.0) % Eos % (Auto) 2.4 (0.0-7.0) % Baso % (Auto) 0.2 (0.0-1.5) % Neut # (Auto) 10.7 H (1.4-5.7) K/uL Lymph # (Auto) 2.4 (0.6-2.4) K/uL [place] # (Auto) 1.7 H (0.0-0.8) K/uL Eos # (Auto) 0.4 (0.0-0.7) K/uL Baso # (Auto) 0.0 (0.0-0.1) K/uL Nucleated RBC % 0.0 /100WBC Nucleated RBCs # 0 K/uL Sodium (136-145) mmol/L Potassium (3.5-5.1) mmol/L Chloride (98-107) mmol/L Carbon Dioxide (21.0-32.0) mmol/L BUN (7.0-18.0) mg/dL Creatinine (0.6-1.0) mg/dL Est Cr Clr Drug Dosing mL/min Estimated GFR (MDRD) ml/min Glucose (74-106) mg/dL POC Glucose 283 H (60-110) mg/dL Calcium (8.5-10.1) mg/dL Magnesium (1.8-2.4) mg/dL Urine Color YELLOW Urine Appearance SLT CLOUDY Urine pH 5.5 (5.0-8.0) Ur Specific [place] 1.025 (1.001-1.035) Urine Protein NEGATIVE (NEGATIVE) mg/dL Urine Glucose (UA) NEGATIVE (NEGATIVE) mg/dL Urine Ketones 15 H (NEGATIVE) mg/dL Urine Occult Blood TRACE-INTACT H (NEGATIVE) Urine Nitrite NEGATIVE (NEGATIVE) Urine Bilirubin NEGATIVE (NEGATIVE) Urine Urobilinogen 0.2 (<2.0) EU/dL Ur Leukocyte Esterase TRACE H (NEGATIVE) Urine RBC 1-3 (0-2/HPF) Urine WBC 5-7 (0-5/HPF) Ur Epithelial Cells MODERATE (NONE-FEW) Urine Bacteria 2+ H (NEGATIVE) Urine Mucus LIGHT (NONE-MOD) 09/08/20 09/08/20 09/08/20 Range/Units 05:08 08:31 11:33 WBC (4.0-11.0) K/uL RBC (4.30-5.90) M/uL Hgb (12.0-16.0) g/dL Hct (36.0-46.0) % MCV (80.0-98.0) fL MCH (27.0-32.0) pg MCHC (31.0-37.0) g/dL RDW Std Deviation (28.0-62.0) fl RDW Coeff of Olimpia (11.0-15.0) % Plt Count (150-400) K/uL MPV (7.40-12.00) fL Neut % (Auto) (48.0-80.0) % Lymph % (Auto) (16.0-40.0) % [place] % (Auto) (0.0-15.0) % Eos % (Auto) (0.0-7.0) % Baso % (Auto) (0.0-1.5) % Neut # (Auto) (1.4-5.7) K/uL Lymph # (Auto) (0.6-2.4) K/uL [place] # (Auto) (0.0-0.8) K/uL Eos # (Auto) (0.0-0.7) K/uL Baso # (Auto) (0.0-0.1) K/uL Nucleated RBC % /100WBC Nucleated RBCs # K/uL Sodium 138 (136-145) mmol/L Potassium 4.0 (3.5-5.1) mmol/L Chloride 103 (98-107) mmol/L Carbon Dioxide 24.9 (21.0-32.0) mmol/L BUN 16 (7.0-18.0) mg/dL Creatinine 0.9 (0.6-1.0) mg/dL Est Cr Clr Drug Dosing 62.80 mL/min Estimated GFR (MDRD) > 60.0 ml/min Glucose 171 H (74-106) mg/dL POC Glucose 160 H 284 H (60-110) mg/dL Calcium 8.5 (8.5-10.1) mg/dL Magnesium 2.0 (1.8-2.4) mg/dL Urine Color Urine Appearance Urine pH (5.0-8.0) Ur Specific [place] (1.001-1.035) Urine Protein (NEGATIVE) mg/dL Urine Glucose (UA) (NEGATIVE) mg/dL Urine Ketones (NEGATIVE) mg/dL Urine Occult Blood (NEGATIVE) Urine Nitrite (NEGATIVE) Urine Bilirubin (NEGATIVE) Urine Urobilinogen (<2.0) EU/dL Ur Leukocyte Esterase (NEGATIVE) Urine RBC (0-2/HPF) Urine WBC (0-5/HPF) Ur Epithelial Cells (NONE-FEW) Urine Bacteria (NEGATIVE) Urine Mucus (NONE-MOD) 09/08/20 Range/Units 16:14 WBC (4.0-11.0) K/uL RBC (4.30-5.90) M/uL Hgb (12.0-16.0) g/dL Hct (36.0-46.0) % MCV (80.0-98.0) fL MCH (27.0-32.0) pg MCHC (31.0-37.0) g/dL RDW Std Deviation (28.0-62.0) fl RDW Coeff of Olimpia (11.0-15.0) % Plt Count (150-400) K/uL MPV (7.40-12.00) fL Neut % (Auto) (48.0-80.0) % Lymph % (Auto) (16.0-40.0) % [place] % (Auto) (0.0-15.0) % Eos % (Auto) (0.0-7.0) % Baso % (Auto) (0.0-1.5) % Neut # (Auto) (1.4-5.7) K/uL Lymph # (Auto) (0.6-2.4) K/uL [place] # (Auto) (0.0-0.8) K/uL Eos # (Auto) (0.0-0.7) K/uL Baso # (Auto) (0.0-0.1) K/uL Nucleated RBC % /100WBC Nucleated RBCs # K/uL Sodium (136-145) mmol/L Potassium (3.5-5.1) mmol/L Chloride (98-107) mmol/L Carbon Dioxide (21.0-32.0) mmol/L BUN (7.0-18.0) mg/dL Creatinine (0.6-1.0) mg/dL Est Cr Clr Drug Dosing mL/min Estimated GFR (MDRD) ml/min Glucose (74-106) mg/dL POC Glucose 208 H (60-110) mg/dL Calcium (8.5-10.1) mg/dL Magnesium (1.8-2.4) mg/dL Urine Color Urine Appearance Urine pH (5.0-8.0) Ur Specific [place] (1.001-1.035) Urine Protein (NEGATIVE) mg/dL Urine Glucose (UA) (NEGATIVE) mg/dL Urine Ketones (NEGATIVE) mg/dL Urine Occult Blood (NEGATIVE) Urine Nitrite (NEGATIVE) Urine Bilirubin (NEGATIVE) Urine Urobilinogen (<2.0) EU/dL Ur Leukocyte Esterase (NEGATIVE) Urine RBC (0-2/HPF) Urine WBC (0-5/HPF) Ur Epithelial Cells (NONE-FEW) Urine Bacteria (NEGATIVE) Urine Mucus (NONE-MOD) Result Diagrams: 09/08/20 05:08 09/08/20 05:08 Kofi Results Last 24 hrs: Microbiology 09/07/20 12:20 Aerobic Blood Culture - Preliminary Blood - Venous - Lab Draw NO GROWTH AFTER 1 DAY Anaerobic Blood Culture - Preliminary NO GROWTH AFTER 1 DAY 09/07/20 12:10 Aerobic Blood Culture - Preliminary Blood - Venous NO GROWTH AFTER 1 DAY Anaerobic Blood Culture - Preliminary NO GROWTH AFTER 1 DAY Sepsis Event Note - Evaluation Sepsis Screening Result: No Definite Risk - Focused Exam Vital Signs: Vital Signs Temp Pulse Resp BP Pulse Ox 09/08/20 16:00 36.9 C 85 16 110/68 95 09/08/20 11:46 36.8 C 79 15 106/56 L 93 L 09/08/20 08:45 36.6 C 82 16 127/74 97 Consult PN Assessment/Plan Procedures: Procedures ASSAY OF CK (CPK) (08/24/20) ASSAY OF LACTIC ACID (08/24/20) ASSAY OF MAGNESIUM (08/16/20) ASSAY OF PHOSPHORUS (08/16/20) ASSAY OF VANCOMYCIN (08/24/20) BLOOD CULTURE FOR BACTERIA (08/24/20) C-REACTIVE PROTEIN (08/24/20) COMPLETE CBC W/AUTO DIFF WBC (08/24/20) COMPREHEN METABOLIC PANEL (08/24/20) CT LOWER EXTREMITY W/O DYE (08/24/20) EMERGENCY DEPT VISIT (08/24/20) EXTREMITY STUDY (08/16/20) GLUCOSE BLOOD TEST (08/24/20) GLYCOSYLATED HEMOGLOBIN TEST (08/24/20) METABOLIC PANEL TOTAL CA (08/24/20) PT EVAL LOW COMPLEX 20 MIN (08/24/20) RBC SED RATE AUTOMATED (08/24/20) ROUTINE VENIPUNCTURE (08/24/20) SARS-COV-2 COVID-19 AMP PRB (08/24/20) THER/DIAG CONCURRENT INF (08/24/20) THER/PROPH/DIAG IV INF INIT (08/24/20) URINALYSIS AUTO W/SCOPE (08/24/20) X-RAY EXAM CHEST 1 VIEW (08/24/20) X-RAY EXAM OF FOOT (08/23/20) (1) Diabetic ulcer of foot associated with diabetes mellitus due to underlying condition, limited to breakdown of skin SNOMED Code(s): 222233113, 818499559 Code(s): E08.621 - DIABETES MELLITUS DUE TO UNDERLYING CONDITION W FOOT ULCER; L97.501 - NON-PRS CHR ULCER OTH PRT UNSP FOOT LIMITED TO BRKDWN SKIN Current Visit: Yes Qualifiers: Diabetic foot ulcer location: unspecified part of foot Laterality: right Qualified Code(s): E08.621 - Diabetes mellitus due to underlying condition with foot ulcer; L97.511 - Non-pressure chronic ulcer of other part of right foot limited to breakdown of skin Problem List Initiated/Reviewed/Updated: Yes Plan: Patient examined and evaluated. Dermal ulcer left ball of foot. Right foot is of more concern. Cellulitis present to distal leg from toes. Abscess bordering on ulcer at least to tendon level right foot, both from exam and MRI findings. Patient to have incision and drainage and will debride all necrotic tissue right foot today under local anesthesia.
--- NOTE | 2020-09-08 19:15 | PCM.OPNOTE ---
- General Post-Op/Procedure Note Date of Surgery/Procedure: 09/08/20 Operative Procedure(s): incision and drainage abscess right foot Findings: consistent with diagnosis Pre Op Diagnosis: abscess right foot Post-Op Diagnosis: abscess right foot Anesthesia Technique: Local (10 ml 1% lidocaine plain) Primary Surgeon: Asael Pete Anesthesia Provider: Charly Brar Pathology: none EBL in mLs: 15 Complications: none Condition: Good Free Text/Narrative:: Intake & Output 09/08/20 09/08/20 09/08/20 06:59 14:59 22:59 Intake Total 600 500 Output Total 1250 950 Balance -650 -450 materials: half inch iodoform packing injectables: 6 ml of 1:1 mixture of 1% lidocaine plain and 0.5% marcaine plain
[2020-09-08] MEDS: oxyCODONE 5 MG Tab PO PRN (20:10)
--- NOTE | 2020-09-09 00:46 | OR ---
SURGEON: Asael Pete DPM DATE OF PROCEDURE: 09/08/2020 PRIMARY SURGEON: Asael Pete DPM. PREOPERATIVE DIAGNOSIS: Abscess, right foot. POSTOPERATIVE DIAGNOSIS: Abscess, right foot. PROCEDURE: Incision and drainage of abscess, right foot. HEMOSTASIS: None. ANESTHESIA: Local consisting of a regional block on the right foot with 1% lidocaine plain, quantity 10 mL. PATHOLOGY: None. CONDITION: The patient tolerated the procedure and the anesthesia well with no complications noted. JUSTIFICATION FOR THE PROCEDURE: The patient is a 55-year-old female who first presented to my office three days ago with ulcer on the plantar aspect of her right foot after having been referred over by the emergency room earlier that day. She was debrided in my office. However, since then, she has worsened, developed an abscess which is already breaking down ulcerating on the dorsal aspect of the first webspace of the right foot, and was admitted yesterday to [facility]. MRI was conducted and revealed the plantar ulcer overlying the second metatarsal head which interdigitated between the first and second metatarsophalangeal joints and extends dorsally into subcutaneous tissues. There is a multilobulated abscess centered within the first webspace. MRI also noted that it favored to represent reactive osteitis versus osteomyelitis, but developing early osteomyelitis is possible. The second extensor tendon was also noted to be partially involved by the abscess with tenosynovitis extending proximally to the level of the second metatarsal base. Therefore, based on MRI findings and clinical appearance, the patient is being taken to surgery with risks and benefits having been explained. No guarantees expressed or implied. The patient understands the severity, and that we are doing all we can to save this area of her foot and her entire foot. PROCEDURE IN DETAIL: The patient was brought to the operating room and placed on the operating table in the supine position. Mild sedation was started on the patient, and the patient was scrubbed on the right lower extremity in preparation for the procedure in the usual aseptic manner, and draped in the usual manner as well. A time-out was performed verifying correct planned procedure and surgical site, and all present agreed. 10 mL of 1% lidocaine plain was infiltrated in a V- block fashion about the first webspace of the right foot, and the abscess area was incised using a #15 blade mounted on a #3 handle. Necrotic tissue was debrided out and Gu tip suction was performed throughout the procedure, evacuating a large amount of pus. Swab cultures were taken. A curved hemostat was used to probe for pockets of further pus, and at least one other pocket was identified, although the definition of the pockets was at a stage where they were essentially one. There were no further areas identified after evacuation of purulent drainage and irrigation with copious amounts of normal sterile saline and exsanguination of the right foot searching for other sources of purulent drainage. The foot was repeatedly flushed with normal sterile saline and dried with gauze and suction. Half-inch iodoform packing was inserted into the webspace ulcer that was revealed by the evacuation of all the necrotic tissue. Probing was also done through the ulcer on the plantar aspect of the ball of the foot, and this came close but did not fully tunnel through to the ulcer on top. This area was also packed with half-inch iodoform packing. Layered 4 x 4 gauze was applied after injecting in a V-block fashion 6 mL of a one-to-one mixture of 0.5% Marcaine plain mixed with 1% lidocaine plain. Dressings were then secured with a Kerlix roll and an Angel bandage. The patient tolerated the procedure and the anesthesia well. No complications noted, and she is being transferred from the OR back to her room, and will be followed. MONIKA ALVARADO /[id number]
[2020-09-09] MEDS: VANCOmycin 1.5 GM/300 ML 1.5 GM in Premix Bag 1 BAG IV SCH ×3 (01:22→22:17)
[2020-09-09] MEDS: Sodium Chloride 0.9% 1,000 ML IV SCH ×2 (01:31→13:43)
[2020-09-09] MEDS: Piperacillin/Tazobactam 4.5 GM in Sodium Chloride 0.9% 100 ML IV SCH ×4 (03:44→21:05)
[2020-09-09 05:46] LABS: BLOOD UREA NITROGEN,BUN 12 mg/dL (7.0-18.0); CARBON DIOXIDE,CO2 25.1 mmol/L (21.0-32.0); CHLORIDE,CL 105 mmol/L (98-107); GLUCOSE RANDOM 180 mg/dL (74-106); POTASSIUM,K 3.8 mmol/L (3.5-5.1); SODIUM,NA 139 mmol/L (136-145)
--- NOTE | 2020-09-09 07:06 | CONS ---
DATE OF CONSULTATION: 09/08/2020 DATE OF : 1965 PRIMARY CARE PHYSICIAN: Mariela Chen MD The patient is a 55-year-old female. PLANNED PROCEDURE: Incision and drainage of abscess, right foot. PREOPERATIVE DIAGNOSIS: Abscess and ulcer of diabetic right foot. ALLERGIES: The patient's medical history: No known allergies. HOME MEDICATIONS: Novolin R, gabapentin 300 mg p.o. daily, atorvastatin 20 mg p.o. daily, lisinopril 20 mg p.o. b.i.d., metformin hydrochloride 1000 mg p.o. b.i.d., Cymbalta 30 mg p.o. daily, and doxycycline 100 mg p.o. q.12h. PAST MEDICAL HISTORY: Significant for high cholesterol, hypertension, bronchitis with recurrent pancreatitis, major kidney infections, diabetic neuropathy, type 2 diabetes, and uncontrolled depression. LABORATORY DATA: White blood cell 15.13, red blood cell 3.96, hemoglobin 12.3, hematocrit 37.0, and platelets 323. Sodium 138, potassium 4.0, chloride 103, CO2 of 24.9, BUN 16, creatinine 0.9, more recent glucose was 208, calcium 8.5, and magnesium 2.0. EKG showed sinus tachycardia, and this EKG was performed on September 07 yesterday. The patient is cleared for surgery per Dr. Batres. All patient questions have been asked and answered. Risks and benefits discussed and I pointed out to patient that she already has a severe infection and should expect a lengthy healing process with possible complications, particularly if blood sugar is not better controlled. No guarantees have been expressed or implied. Written consent has been signed and placed in the patient's chart. MONIKA ALVARADO /[id number] REINA
--- NOTE | 2020-09-09 08:12 | PCM.PN ---
- General Info Date of Service: 09/09/20 - Review of Systems Systems Review Comment:: feeling better, right leg and foot pain improved - Patient Data Vitals - Most Recent: Last Vital Signs Temp 36.4 C 09/09/20 07:25 Pulse 83 09/09/20 07:25 Resp 18 09/09/20 07:25 BP 120/68 09/09/20 07:25 Pulse Ox 93 L 09/09/20 07:25 Weight - Most Recent: 102.965 kg I&O - Last 24 Hours: Intake & Output 09/08/20 09/09/20 09/09/20 22:59 06:59 14:59 Intake Total 500 860 Output Total 950 1560 Balance -450 -700 Lab Results Last 24 Hours: Laboratory Results - last 24 hr 09/08/20 09/08/20 09/08/20 Range/Units 08:31 11:33 16:14 WBC (4.0-11.0) K/uL RBC (4.30-5.90) M/uL Hgb (12.0-16.0) g/dL Hct (36.0-46.0) % MCV (80.0-98.0) fL MCH (27.0-32.0) pg MCHC (31.0-37.0) g/dL RDW Std Deviation (28.0-62.0) fl RDW Coeff of [place]limpia (11.0-15.0) % Plt Count (150-400) K/uL MPV (7.40-12.00) fL Neut % (Auto) (48.0-80.0) % Lymph % (Auto) (16.0-40.0) % [place] % (Auto) (0.0-15.0) % Eos % (Auto) (0.0-7.0) % Baso % (Auto) (0.0-1.5) % Neut # (Auto) (1.4-5.7) K/uL Lymph # (Auto) (0.6-2.4) K/uL [place] # (Auto) (0.0-0.8) K/uL Eos # (Auto) (0.0-0.7) K/uL Baso # (Auto) (0.0-0.1) K/uL Nucleated RBC % /100WBC Nucleated RBCs # K/uL Sodium (136-145) mmol/L Potassium (3.5-5.1) mmol/L Chloride (98-107) mmol/L Carbon Dioxide (21.0-32.0) mmol/L BUN (7.0-18.0) mg/dL Creatinine (0.6-1.0) mg/dL Est Cr Clr Drug Dosing mL/min Estimated GFR (MDRD) ml/min Glucose (74-106) mg/dL POC Glucose 160 H 284 H 208 H (60-110) mg/dL Calcium (8.5-10.1) mg/dL Magnesium (1.8-2.4) mg/dL 09/08/20 09/09/20 09/09/20 Range/Units 18:37 04:53 04:53 WBC 12.23 H (4.0-11.0) K/uL RBC 3.74 L (4.30-5.90) M/uL Hgb 11.6 L (12.0-16.0) g/dL Hct 35.2 L (36.0-46.0) % MCV 94.1 (80.0-98.0) fL MCH 31.0 (27.0-32.0) pg MCHC 33.0 (31.0-37.0) g/dL RDW Std Deviation 41.2 (28.0-62.0) fl RDW Coeff of Olimpia 12 (11.0-15.0) % Plt Count 318 (150-400) K/uL MPV 10.50 (7.40-12.00) fL Neut % (Auto) 69.0 (48.0-80.0) % Lymph % (Auto) 18.1 (16.0-40.0) % [place] % (Auto) 10.2 (0.0-15.0) % Eos % (Auto) 2.5 (0.0-7.0) % Baso % (Auto) 0.2 (0.0-1.5) % Neut # (Auto) 8.4 H (1.4-5.7) K/uL Lymph # (Auto) 2.2 (0.6-2.4) K/uL [place] # (Auto) 1.3 H (0.0-0.8) K/uL Eos # (Auto) 0.3 (0.0-0.7) K/uL Baso # (Auto) 0.0 (0.0-0.1) K/uL Nucleated RBC % 0.0 /100WBC Nucleated RBCs # 0 K/uL Sodium 139 (136-145) mmol/L Potassium 3.8 (3.5-5.1) mmol/L Chloride 105 (98-107) mmol/L Carbon Dioxide 25.1 (21.0-32.0) mmol/L BUN 12 (7.0-18.0) mg/dL Creatinine 0.9 (0.6-1.0) mg/dL Est Cr Clr Drug Dosing 62.80 mL/min Estimated GFR (MDRD) > 60.0 ml/min Glucose 180 H (74-106) mg/dL POC Glucose 202 H (60-110) mg/dL Calcium 8.1 L (8.5-10.1) mg/dL Magnesium 1.6 L (1.8-2.4) mg/dL 09/09/20 Range/Units 06:34 WBC (4.0-11.0) K/uL RBC (4.30-5.90) M/uL Hgb (12.0-16.0) g/dL Hct (36.0-46.0) % MCV (80.0-98.0) fL MCH (27.0-32.0) pg MCHC (31.0-37.0) g/dL RDW Std Deviation (28.0-62.0) fl RDW Coeff of Olimpia (11.0-15.0) % Plt Count (150-400) K/uL MPV (7.40-12.00) fL Neut % (Auto) (48.0-80.0) % Lymph % (Auto) (16.0-40.0) % [place] % (Auto) (0.0-15.0) % Eos % (Auto) (0.0-7.0) % Baso % (Auto) (0.0-1.5) % Neut # (Auto) (1.4-5.7) K/uL Lymph # (Auto) (0.6-2.4) K/uL [place] # (Auto) (0.0-0.8) K/uL Eos # (Auto) (0.0-0.7) K/uL Baso # (Auto) (0.0-0.1) K/uL Nucleated RBC % /100WBC Nucleated RBCs # K/uL Sodium (136-145) mmol/L Potassium (3.5-5.1) mmol/L Chloride (98-107) mmol/L Carbon Dioxide (21.0-32.0) mmol/L BUN (7.0-18.0) mg/dL Creatinine (0.6-1.0) mg/dL Est Cr Clr Drug Dosing mL/min Estimated GFR (MDRD) ml/min Glucose (74-106) mg/dL POC Glucose 160 H (60-110) mg/dL Calcium (8.5-10.1) mg/dL Magnesium (1.8-2.4) mg/dL Kofi Results Last 24 Hours: Microbiology 09/07/20 14:08 Wound Culture - Final Foot, Right Staphylococcus Aureus Skin Ronit 09/08/20 17:59 Gram Stain - Preliminary Foot, Right 09/07/20 12:20 Aerobic Blood Culture - Preliminary Blood - Venous - Lab Draw NO GROWTH AFTER 1 DAY Anaerobic Blood Culture - Preliminary NO GROWTH AFTER 1 DAY 09/07/20 12:10 Aerobic Blood Culture - Preliminary Blood - Venous NO GROWTH AFTER 1 DAY Anaerobic Blood Culture - Preliminary NO GROWTH AFTER 1 DAY Med Orders - Current: Current Medications Acetaminophen (Acetaminophen 325 Mg Tab) 650 mg PO Q4H PRN PRN Reason: Pain (Mild 1-3)/fever Last Admin: 09/08/20 09:49 Dose: 650 mg Documented by: Atorvastatin Calcium (Atorvastatin 20 Mg Tab) 20 mg PO BEDTIME [facility] Dextrose/Water (50% Dextrose In Water 50 Ml Syringe) 50 ml IV ASDIRECTED PRN PRN Reason: Hypoglycemia Docusate Sodium (Docusate Sodium 100 Mg Cap) 100 mg PO BID PRN PRN Reason: Constipation Duloxetine HCl (Duloxetine 30 Mg Cap) 30 mg PO DAILY [facility] Enoxaparin Sodium (Enoxaparin 40 Mg/0.4 Ml Syringe) 40 mg SUBCUT Q24H [facility] Last Admin: 09/08/20 15:25 Dose: Not Given Documented by: Gabapentin (Gabapentin 300 Mg Cap) 300 mg PO DAILY [facility] Last Admin: 09/08/20 14:25 Dose: 300 mg Documented by: Glucagon (Glucagon,Human Recombinant 1 Mg Vial) 1 mg IM ASDIRECTED PRN PRN Reason: Hypoglycemia Sodium Chloride (Normal Saline) 1,000 mls @ 125 mls/hr IV Q8H [facility] Last Admin: 09/09/20 01:31 Dose: 125 mls/hr Documented by: Vancomycin HCl 1.5 gm/ Premix 300 mls @ 200 mls/hr IV Q12H [facility] Last Admin: 09/09/20 01:22 Dose: 200 mls/hr Documented by: Piperacillin Sod/Tazobactam (Sod 4.5 gm/ Sodium Chloride) 100 mls @ 100 mls/hr IV Q6H [facility] Last Admin: 09/09/20 03:44 Dose: 100 mls/hr Documented by: Insulin Aspart (Insulin Aspart 100 Units/Ml 3 Ml Pen) 0 unit SUBCUT TIDAC [facility]; Protocol Last Admin: 09/08/20 18:38 Dose: 6 units Documented by: Insulin Human NPH (Insulin Isophane Nph, Human 100 Units/Ml 10 Ml Vial) 20 unit SUBCUT BIDAC [facility] Last Admin: 09/08/20 16:32 Dose: Not Given Documented by: Morphine Sulfate (Morphine 2 Mg/Ml Syringe) 2 mg IVPUSH Q2H PRN PRN Reason: Pain (severe 7-10) Ondansetron HCl (Ondansetron 4 Mg/2 Ml Sdv) 4 mg IVPUSH Q4H PRN PRN Reason: Nausea Oxycodone HCl (Oxycodone 5 Mg Tab) 5 mg PO Q4H PRN PRN Reason: Pain (moderate 4-6) Last Admin: 09/08/20 20:10 Dose: 5 mg Documented by: Sodium Chloride (Sodium Chloride 0.9% 2.5 Ml Syringe) 2.5 ml FLUSH ASDIRECTED PRN PRN Reason: Keep Vein Open Vancomycin HCl (Pharmacy To Dose - Vancomycin) 1 dose .XX ASDIRECTED [facility] Discontinued Medications Bupivacaine HCl (Bupivacaine 0.5% 10 Ml Sdv) Confirm Administered Dose 10 ml .ROUTE .STK-MED ONE Stop: 09/08/20 16:48 Famotidine (Famotidine 20 Mg/2 Ml Sdv) 40 mg IVPUSH ONETIME ONE Stop: 09/08/20 14:04 Last Admin: 09/08/20 14:25 Dose: 40 mg Documented by: Fentanyl (Fentanyl 100 Mcg/2 Ml Sdv) Confirm Administered Dose 100 mcg .ROUTE .STK-MED ONE Stop: 09/08/20 17:33 Gadobenate Dimeglumine (Gadobenate Dimeglumine 529 Mg/Ml 20 Ml Sdv) 20 ml IVPUSH ONETIME STA Stop: 09/08/20 07:38 Last Admin: 09/08/20 07:39 Dose: 20 ml Documented by: Sodium Chloride (Normal Saline) 1,000 mls @ 999 mls/hr IV .Bolus ONE Stop: 09/07/20 12:43 Last Admin: 09/07/20 12:25 Dose: 999 mls/hr Documented by: Vancomycin HCl 1,500 mg/ (Sodium Chloride) 100 mls @ 100 mls/hr IV ONETIME ONE Stop: 09/07/20 12:42 Last Admin: 09/07/20 13:22 Dose: Not Given Documented by: Piperacillin Sod/Tazobactam (Sod 3.375 gm/ Sodium Chloride) 50 mls @ 100 mls/hr IV ONETIME ONE Stop: 09/07/20 12:12 Last Admin: 09/07/20 12:27 Dose: 100 mls/hr Documented by: Magnesium Sulfate 2 gm/ Premix 50 mls @ 50 mls/hr IV ONETIME ONE Stop: 09/07/20 13:51 Last Admin: 09/07/20 14:00 Dose: 50 mls/hr Documented by: Vancomycin HCl 1.5 gm/ Premix 300 mls @ 200 mls/hr IV ONETIME ONE Stop: 09/07/20 14:50 Last Admin: 09/07/20 14:00 Dose: 200 mls/hr Documented by: Piperacillin Sod/Tazobactam (Sod 4.5 gm/ Sodium Chloride) 100 mls @ 100 mls/hr IV Q8H МАРИНА Last Admin: 09/08/20 04:29 Dose: 100 mls/hr Documented by: Lidocaine HCl (Lidocaine 1% 20 Ml Mdv) Confirm Administered Dose 20 ml .ROUTE .STK-MED ONE Stop: 09/08/20 16:48 Metoclopramide HCl (Metoclopramide 10 Mg/2 Ml Sdv) 10 mg IVPUSH ONETIME ONE Stop: 09/08/20 14:06 Last Admin: 09/08/20 14:25 Dose: 10 mg Documented by: Midazolam HCl (Midazolam 1 Mg/Ml 2 Ml Sdv) Confirm Administered Dose 2 mg .ROUTE .STK-MED ONE Stop: 09/08/20 17:33 Ondansetron HCl (Ondansetron 4 Mg/2 Ml Sdv) Confirm Administered Dose 4 mg .ROUTE .STK-MED ONE Stop: 09/07/20 13:59 Last Admin: 09/07/20 14:03 Dose: Not Given Documented by: Ondansetron HCl (Ondansetron 4 Mg/2 Ml Sdv) 4 mg IVPUSH ONETIME ONE Stop: 09/07/20 14:01 Last Admin: 09/07/20 14:03 Dose: 4 mg Documented by: Oxycodone/Acetaminophen (Acetaminophen/Oxycodone 325-5 Mg Tab) 2 tab PO ONETIME ONE Stop: 09/07/20 11:44 Last Admin: 09/07/20 12:25 Dose: 2 tab Documented by: Sodium Chloride (Sodium Chloride 0.9% 10 Ml Syringe) 10 ml FLUSH ASDIRECTED PRN PRN Reason: Keep Vein Open Last Admin: 09/07/20 12:27 Dose: 10 ml Documented by: Sodium Chloride (Sodium Chloride 0.9% 2.5 Ml Syringe) 2.5 ml FLUSH ASDIRECTED PRN PRN Reason: Keep Vein Open Last Admin: 09/07/20 12:27 Dose: 2.5 ml Documented by: - Exam General: Alert, Oriented Neck: Supple Lungs: Clear to Auscultation, Normal Respiratory Effort Cardiovascular: Regular Rate, Regular Rhythm Extremities: Other (erythma of foot improving minimal edema, bandage over wound until Dr. Pete inspects) Neurological: No New Focal Deficit - Patient Data Lab Results Last 24 hrs: Laboratory Results - last 24 hr 09/08/20 09/08/20 09/08/20 Range/Units 08:31 11:33 16:14 WBC (4.0-11.0) K/uL RBC (4.30-5.90) M/uL Hgb (12.0-16.0) g/dL Hct (36.0-46.0) % MCV (80.0-98.0) fL MCH (27.0-32.0) pg MCHC (31.0-37.0) g/dL RDW Std Deviation (28.0-62.0) fl RDW Coeff of Olimpia (11.0-15.0) % Plt Count (150-400) K/uL MPV (7.40-12.00) fL Neut % (Auto) (48.0-80.0) % Lymph % (Auto) (16.0-40.0) % [place] % (Auto) (0.0-15.0) % Eos % (Auto) (0.0-7.0) % Baso % (Auto) (0.0-1.5) % Neut # (Auto) (1.4-5.7) K/uL Lymph # (Auto) (0.6-2.4) K/uL [place] # (Auto) (0.0-0.8) K/uL Eos # (Auto) (0.0-0.7) K/uL Baso # (Auto) (0.0-0.1) K/uL Nucleated RBC % /100WBC Nucleated RBCs # K/uL Sodium (136-145) mmol/L Potassium (3.5-5.1) mmol/L Chloride (98-107) mmol/L Carbon Dioxide (21.0-32.0) mmol/L BUN (7.0-18.0) mg/dL Creatinine (0.6-1.0) mg/dL Est Cr Clr Drug Dosing mL/min Estimated GFR (MDRD) ml/min Glucose (74-106) mg/dL POC Glucose 160 H 284 H 208 H (60-110) mg/dL Calcium (8.5-10.1) mg/dL Magnesium (1.8-2.4) mg/dL 09/08/20 09/09/20 09/09/20 Range/Units 18:37 04:53 04:53 WBC 12.23 H (4.0-11.0) K/uL RBC 3.74 L (4.30-5.90) M/uL Hgb 11.6 L (12.0-16.0) g/dL Hct 35.2 L (36.0-46.0) % MCV 94.1 (80.0-98.0) fL MCH 31.0 (27.0-32.0) pg MCHC 33.0 (31.0-37.0) g/dL RDW Std Deviation 41.2 (28.0-62.0) fl RDW Coeff of Olimpia 12 (11.0-15.0) % Plt Count 318 (150-400) K/uL MPV 10.50 (7.40-12.00) fL Neut % (Auto) 69.0 (48.0-80.0) % Lymph % (Auto) 18.1 (16.0-40.0) % [place] % (Auto) 10.2 (0.0-15.0) % Eos % (Auto) 2.5 (0.0-7.0) % Baso % (Auto) 0.2 (0.0-1.5) % Neut # (Auto) 8.4 H (1.4-5.7) K/uL Lymph # (Auto) 2.2 (0.6-2.4) K/uL [place] # (Auto) 1.3 H (0.0-0.8) K/uL Eos # (Auto) 0.3 (0.0-0.7) K/uL Baso # (Auto) 0.0 (0.0-0.1) K/uL Nucleated RBC % 0.0 /100WBC Nucleated RBCs # 0 K/uL Sodium 139 (136-145) mmol/L Potassium 3.8 (3.5-5.1) mmol/L Chloride 105 (98-107) mmol/L Carbon Dioxide 25.1 (21.0-32.0) mmol/L BUN 12 (7.0-18.0) mg/dL Creatinine 0.9 (0.6-1.0) mg/dL Est Cr Clr Drug Dosing 62.80 mL/min Estimated GFR (MDRD) > 60.0 ml/min Glucose 180 H (74-106) mg/dL POC Glucose 202 H (60-110) mg/dL Calcium 8.1 L (8.5-10.1) mg/dL Magnesium 1.6 L (1.8-2.4) mg/dL 09/09/20 Range/Units 06:34 WBC (4.0-11.0) K/uL RBC (4.30-5.90) M/uL Hgb (12.0-16.0) g/dL Hct (36.0-46.0) % MCV (80.0-98.0) fL MCH (27.0-32.0) pg MCHC (31.0-37.0) g/dL RDW Std Deviation (28.0-62.0) fl RDW Coeff of Olimpia (11.0-15.0) % Plt Count (150-400) K/uL MPV (7.40-12.00) fL Neut % (Auto) (48.0-80.0) % Lymph % (Auto) (16.0-40.0) % [place] % (Auto) (0.0-15.0) % Eos % (Auto) (0.0-7.0) % Baso % (Auto) (0.0-1.5) % Neut # (Auto) (1.4-5.7) K/uL Lymph # (Auto) (0.6-2.4) K/uL [place] # (Auto) (0.0-0.8) K/uL Eos # (Auto) (0.0-0.7) K/uL Baso # (Auto) (0.0-0.1) K/uL Nucleated RBC % /100WBC Nucleated RBCs # K/uL Sodium (136-145) mmol/L Potassium (3.5-5.1) mmol/L Chloride (98-107) mmol/L Carbon Dioxide (21.0-32.0) mmol/L BUN (7.0-18.0) mg/dL Creatinine (0.6-1.0) mg/dL Est Cr Clr Drug Dosing mL/min Estimated GFR (MDRD) ml/min Glucose (74-106) mg/dL POC Glucose 160 H (60-110) mg/dL Calcium (8.5-10.1) mg/dL Magnesium (1.8-2.4) mg/dL Result Diagrams: 09/09/20 04:53 09/09/20 04:53 Kofi Results Last 24 hrs: Microbiology 09/07/20 14:08 Wound Culture - Final Foot, Right Staphylococcus Aureus Skin Ronit 09/08/20 17:59 Gram Stain - Preliminary Foot, Right 09/07/20 12:20 Aerobic Blood Culture - Preliminary Blood - Venous - Lab Draw NO GROWTH AFTER 1 DAY Anaerobic Blood Culture - Preliminary NO GROWTH AFTER 1 DAY 09/07/20 12:10 Aerobic Blood Culture - Preliminary Blood - Venous NO GROWTH AFTER 1 DAY Anaerobic Blood Culture - Preliminary NO GROWTH AFTER 1 DAY Sepsis Event Note - Evaluation Sepsis Screening Result: No Definite Risk - Focused Exam Vital Signs: Vital Signs Temp Pulse Resp BP Pulse Ox 09/09/20 07:25 36.4 C 83 18 120/68 93 L 09/09/20 05:00 37.3 C 82 18 132/75 95 09/09/20 00:00 36.8 C 82 19 128/68 93 L 09/08/20 21:50 36.7 C 86 18 115/65 96 09/08/20 20:50 36.8 C 75 18 125/70 97 - Problem List Review Problem List Initiated/Reviewed/Updated: Yes - My Orders Last 24 Hours: My Active Orders 09/08/20 12:20 Consult to Physician [CONS] Routine 09/08/20 12:22 Notify Provider Consults [RC] ASDIRECTED 09/08/20 13:15 Gabapentin [Neurontin] 300 mg PO DAILY 09/09/20 09:00 DULoxetine [Cymbalta] 30 mg PO DAILY 09/09/20 21:00 atorvaSTATin [Lipitor] 20 mg PO BEDTIME - Plan Plan:: This 55-year-old female admitted with cellulitis and right foot diabetic ulcer. 1. Cellulitis/right foot diabetic ulcer -We will continue vancomycin and Zosyn -MRI shows ulcer with multilobulated abscess involving tendon -Dr. Pete performed I&D of abscess -Blood cultures pending -Wound culture pending 2. DM type II, uncontrolled -Blood sugar checks 3 times daily before meals and as needed -NovoLog sliding scale insulin with meals -Continue Novolin H 20 units twice daily -ADA diet 3. Hypertension/HLD -Monitor blood pressures we will hold lisinopril due to softer blood pressure in the ER -Continue statin VTE prophylaxis: Lovenox CODE STATUS: Full code Dispo: 2 to 3 days pending improvement.
[2020-09-09] MEDS: Insulin Isophane NPH, Human 100 Units/ML 10 ML Vial SUBCUT SCH ×2 (08:15→17:54)
[2020-09-09] MEDS: Insulin Aspart 100 Units/ML 3 ML Pen SUBCUT SCH ×3 (08:21→17:53)
[2020-09-09] MEDS: DULoxetine 30 MG Cap PO SCH (08:23)
[2020-09-09] MEDS: Gabapentin 300 MG Cap PO SCH (08:24)
[2020-09-09] MEDS: oxyCODONE 5 MG Tab PO PRN (09:39)
--- NOTE | 2020-09-09 15:32 | PCM.CONSN ---
- General Info Date of Service: 09/09/20 Admission Dx/Problem (Free Text): Admission Diagnosis/Problem Admission Diagnosis/Problem Diabetic foot ulcer Subjective Update: Patient states she is doing better now and was able to sleep ok last night. Functional Status: Reports: Pain Controlled - Patient Data Vitals - Most Recent: Last Vital Signs Temp 37 C 09/09/20 11:11 Pulse 82 09/09/20 11:11 Resp 17 09/09/20 11:11 BP 121/70 09/09/20 11:11 Pulse Ox 92 L 09/09/20 11:11 Weight - Most Recent: 102.965 kg I&O - Last 24 Hours: Intake & Output 09/09/20 09/09/20 09/09/20 06:59 14:59 22:59 Intake Total 860 Output Total 1560 Balance -700 Lab Results Last 24 Hours: Laboratory Results - last 24 hr 09/08/20 09/08/20 09/09/20 Range/Units 16:14 18:37 04:53 WBC 12.23 H (4.0-11.0) K/uL RBC 3.74 L (4.30-5.90) M/uL Hgb 11.6 L (12.0-16.0) g/dL Hct 35.2 L (36.0-46.0) % MCV 94.1 (80.0-98.0) fL MCH 31.0 (27.0-32.0) pg MCHC 33.0 (31.0-37.0) g/dL RDW Std Deviation 41.2 (28.0-62.0) fl RDW Coeff of Olimpia 12 (11.0-15.0) % Plt Count 318 (150-400) K/uL MPV 10.50 (7.40-12.00) fL Neut % (Auto) 69.0 (48.0-80.0) % Lymph % (Auto) 18.1 (16.0-40.0) % Jay % (Auto) 10.2 (0.0-15.0) % Eos % (Auto) 2.5 (0.0-7.0) % Baso % (Auto) 0.2 (0.0-1.5) % Neut # (Auto) 8.4 H (1.4-5.7) K/uL Lymph # (Auto) 2.2 (0.6-2.4) K/uL Jay # (Auto) 1.3 H (0.0-0.8) K/uL Eos # (Auto) 0.3 (0.0-0.7) K/uL Baso # (Auto) 0.0 (0.0-0.1) K/uL Nucleated RBC % 0.0 /100WBC Nucleated RBCs # 0 K/uL Sodium (136-145) mmol/L Potassium (3.5-5.1) mmol/L Chloride (98-107) mmol/L Carbon Dioxide (21.0-32.0) mmol/L BUN (7.0-18.0) mg/dL Creatinine (0.6-1.0) mg/dL Est Cr Clr Drug Dosing mL/min Estimated GFR (MDRD) ml/min Glucose (74-106) mg/dL POC Glucose 208 H 202 H (60-110) mg/dL Calcium (8.5-10.1) mg/dL Magnesium (1.8-2.4) mg/dL Vancomycin Trough (5.0-10.0) ug/mL 09/09/20 09/09/20 09/09/20 Range/Units 04:53 06:34 11:36 WBC (4.0-11.0) K/uL RBC (4.30-5.90) M/uL Hgb (12.0-16.0) g/dL Hct (36.0-46.0) % MCV (80.0-98.0) fL MCH (27.0-32.0) pg MCHC (31.0-37.0) g/dL RDW Std Deviation (28.0-62.0) fl RDW Coeff of Olimpia (11.0-15.0) % Plt Count (150-400) K/uL MPV (7.40-12.00) fL Neut % (Auto) (48.0-80.0) % Lymph % (Auto) (16.0-40.0) % Jay % (Auto) (0.0-15.0) % Eos % (Auto) (0.0-7.0) % Baso % (Auto) (0.0-1.5) % Neut # (Auto) (1.4-5.7) K/uL Lymph # (Auto) (0.6-2.4) K/uL Jay # (Auto) (0.0-0.8) K/uL Eos # (Auto) (0.0-0.7) K/uL Baso # (Auto) (0.0-0.1) K/uL Nucleated RBC % /100WBC Nucleated RBCs # K/uL Sodium 139 (136-145) mmol/L Potassium 3.8 (3.5-5.1) mmol/L Chloride 105 (98-107) mmol/L Carbon Dioxide 25.1 (21.0-32.0) mmol/L BUN 12 (7.0-18.0) mg/dL Creatinine 0.9 (0.6-1.0) mg/dL Est Cr Clr Drug Dosing 62.80 mL/min Estimated GFR (MDRD) > 60.0 ml/min Glucose 180 H (74-106) mg/dL POC Glucose 160 H 202 H (60-110) mg/dL Calcium 8.1 L (8.5-10.1) mg/dL Magnesium 1.6 L (1.8-2.4) mg/dL Vancomycin Trough (5.0-10.0) ug/mL 09/09/20 Range/Units 13:34 WBC (4.0-11.0) K/uL RBC (4.30-5.90) M/uL Hgb (12.0-16.0) g/dL Hct (36.0-46.0) % MCV (80.0-98.0) fL MCH (27.0-32.0) pg MCHC (31.0-37.0) g/dL RDW Std Deviation (28.0-62.0) fl RDW Coeff of Olimpia (11.0-15.0) % Plt Count (150-400) K/uL MPV (7.40-12.00) fL Neut % (Auto) (48.0-80.0) % Lymph % (Auto) (16.0-40.0) % Jay % (Auto) (0.0-15.0) % Eos % (Auto) (0.0-7.0) % Baso % (Auto) (0.0-1.5) % Neut # (Auto) (1.4-5.7) K/uL Lymph # (Auto) (0.6-2.4) K/uL Jay # (Auto) (0.0-0.8) K/uL Eos # (Auto) (0.0-0.7) K/uL Baso # (Auto) (0.0-0.1) K/uL Nucleated RBC % /100WBC Nucleated RBCs # K/uL Sodium (136-145) mmol/L Potassium (3.5-5.1) mmol/L Chloride (98-107) mmol/L Carbon Dioxide (21.0-32.0) mmol/L BUN (7.0-18.0) mg/dL Creatinine (0.6-1.0) mg/dL Est Cr Clr Drug Dosing mL/min Estimated GFR (MDRD) ml/min Glucose (74-106) mg/dL POC Glucose (60-110) mg/dL Calcium (8.5-10.1) mg/dL Magnesium (1.8-2.4) mg/dL Vancomycin Trough 11.8 H (5.0-10.0) ug/mL Kofi Results Last 24 Hours: Microbiology 09/07/20 12:20 Aerobic Blood Culture - Preliminary Blood - Venous - Lab Draw NO GROWTH AFTER 2 DAYS Anaerobic Blood Culture - Preliminary NO GROWTH AFTER 2 DAYS 09/07/20 12:10 Aerobic Blood Culture - Preliminary Blood - Venous NO GROWTH AFTER 2 DAYS Anaerobic Blood Culture - Preliminary NO GROWTH AFTER 2 DAYS 09/08/20 17:59 Gram Stain - Final Foot, Right 09/07/20 14:08 Wound Culture - Final Foot, Right Staphylococcus Aureus Skin Ronit Med Orders - Current: Current Medications Acetaminophen (Acetaminophen 325 Mg Tab) 650 mg PO Q4H PRN PRN Reason: Pain (Mild 1-3)/fever Last Admin: 09/08/20 09:49 Dose: 650 mg Documented by: Atorvastatin Calcium (Atorvastatin 20 Mg Tab) 20 mg PO BEDTIME [facility] Dextrose/Water (50% Dextrose In Water 50 Ml Syringe) 50 ml IV ASDIRECTED PRN PRN Reason: Hypoglycemia Docusate Sodium (Docusate Sodium 100 Mg Cap) 100 mg PO BID PRN PRN Reason: Constipation Duloxetine HCl (Duloxetine 30 Mg Cap) 30 mg PO DAILY [facility] Last Admin: 09/09/20 08:23 Dose: 30 mg Documented by: Enoxaparin Sodium (Enoxaparin 40 Mg/0.4 Ml Syringe) 40 mg SUBCUT Q24H [facility] Last Admin: 09/08/20 15:25 Dose: Not Given Documented by: Gabapentin (Gabapentin 300 Mg Cap) 300 mg PO DAILY [facility] Last Admin: 09/09/20 08:24 Dose: 300 mg Documented by: Glucagon (Glucagon,Human Recombinant 1 Mg Vial) 1 mg IM ASDIRECTED PRN PRN Reason: Hypoglycemia Vancomycin HCl 1.5 gm/ Premix 300 mls @ 200 mls/hr IV Q12H [facility] Stop: 09/09/20 16:00 Last Admin: 09/09/20 14:20 Dose: 200 mls/hr Documented by: Piperacillin Sod/Tazobactam (Sod 4.5 gm/ Sodium Chloride) 100 mls @ 100 mls/hr IV Q6H [facility] Last Admin: 09/09/20 09:59 Dose: 100 mls/hr Documented by: Vancomycin HCl 1.5 gm/ Premix 300 mls @ 200 mls/hr IV Q8H [facility] Insulin Aspart (Insulin Aspart 100 Units/Ml 3 Ml Pen) 0 unit SUBCUT TIDAC [facility]; Protocol Last Admin: 09/09/20 12:19 Dose: 6 units Documented by: Insulin Human NPH (Insulin Isophane Nph, Human 100 Units/Ml 10 Ml Vial) 20 unit SUBCUT BIDAC [facility] Last Admin: 09/09/20 08:15 Dose: 20 units Documented by: Morphine Sulfate (Morphine 2 Mg/Ml Syringe) 2 mg IVPUSH Q2H PRN PRN Reason: Pain (severe 7-10) Ondansetron HCl (Ondansetron 4 Mg/2 Ml Sdv) 4 mg IVPUSH Q4H PRN PRN Reason: Nausea Oxycodone HCl (Oxycodone 5 Mg Tab) 5 mg PO Q4H PRN PRN Reason: Pain (moderate 4-6) Last Admin: 09/09/20 09:39 Dose: 5 mg Documented by: Sodium Chloride (Sodium Chloride 0.9% 2.5 Ml Syringe) 2.5 ml FLUSH ASDIRECTED PRN PRN Reason: Keep Vein Open Vancomycin HCl (Pharmacy To Dose - Vancomycin) 1 dose .XX ASDIRECTED [facility] Discontinued Medications Bupivacaine HCl (Bupivacaine 0.5% 10 Ml Sdv) Confirm Administered Dose 10 ml .ROUTE .STK-MED ONE Stop: 09/08/20 16:48 Famotidine (Famotidine 20 Mg/2 Ml Sdv) 40 mg IVPUSH ONETIME ONE Stop: 09/08/20 14:04 Last Admin: 09/08/20 14:25 Dose: 40 mg Documented by: Fentanyl (Fentanyl 100 Mcg/2 Ml Sdv) Confirm Administered Dose 100 mcg .ROUTE .STK-MED ONE Stop: 09/08/20 17:33 Gadobenate Dimeglumine (Gadobenate Dimeglumine 529 Mg/Ml 20 Ml Sdv) 20 ml IVPUSH ONETIME STA Stop: 09/08/20 07:38 Last Admin: 09/08/20 07:39 Dose: 20 ml Documented by: Sodium Chloride (Normal Saline) 1,000 mls @ 999 mls/hr IV .Bolus ONE Stop: 09/07/20 12:43 Last Admin: 09/07/20 12:25 Dose: 999 mls/hr Documented by: Vancomycin HCl 1,500 mg/ (Sodium Chloride) 100 mls @ 100 mls/hr IV ONETIME ONE Stop: 09/07/20 12:42 Last Admin: 09/07/20 13:22 Dose: Not Given Documented by: Piperacillin Sod/Tazobactam (Sod 3.375 gm/ Sodium Chloride) 50 mls @ 100 mls/hr IV ONETIME ONE Stop: 09/07/20 12:12 Last Admin: 09/07/20 12:27 Dose: 100 mls/hr Documented by: Magnesium Sulfate 2 gm/ Premix 50 mls @ 50 mls/hr IV ONETIME ONE Stop: 09/07/20 13:51 Last Admin: 09/07/20 14:00 Dose: 50 mls/hr Documented by: Vancomycin HCl 1.5 gm/ Premix 300 mls @ 200 mls/hr IV ONETIME ONE Stop: 09/07/20 14:50 Last Admin: 09/07/20 14:00 Dose: 200 mls/hr Documented by: Sodium Chloride (Normal Saline) 1,000 mls @ 125 mls/hr IV Q8H [facility] Last Admin: 09/09/20 13:43 Dose: Not Given Documented by: Piperacillin Sod/Tazobactam (Sod 4.5 gm/ Sodium Chloride) 100 mls @ 100 mls/hr IV Q8H [facility] Last Admin: 09/08/20 04:29 Dose: 100 mls/hr Documented by: Lidocaine HCl (Lidocaine 1% 20 Ml Mdv) Confirm Administered Dose 20 ml .ROUTE .STK-MED ONE Stop: 09/08/20 16:48 Metoclopramide HCl (Metoclopramide 10 Mg/2 Ml Sdv) 10 mg IVPUSH ONETIME ONE Stop: 09/08/20 14:06 Last Admin: 09/08/20 14:25 Dose: 10 mg Documented by: Midazolam HCl (Midazolam 1 Mg/Ml 2 Ml Sdv) Confirm Administered Dose 2 mg .ROUTE .STK-MED ONE Stop: 09/08/20 17:33 Ondansetron HCl (Ondansetron 4 Mg/2 Ml Sdv) Confirm Administered Dose 4 mg .ROUTE .STK-MED ONE Stop: 09/07/20 13:59 Last Admin: 09/07/20 14:03 Dose: Not Given Documented by: Ondansetron HCl (Ondansetron 4 Mg/2 Ml Sdv) 4 mg IVPUSH ONETIME ONE Stop: 09/07/20 14:01 Last Admin: 09/07/20 14:03 Dose: 4 mg Documented by: Oxycodone/Acetaminophen (Acetaminophen/Oxycodone 325-5 Mg Tab) 2 tab PO ONETIME ONE Stop: 09/07/20 11:44 Last Admin: 09/07/20 12:25 Dose: 2 tab Documented by: Sodium Chloride (Sodium Chloride 0.9% 10 Ml Syringe) 10 ml FLUSH ASDIRECTED PRN PRN Reason: Keep Vein Open Last Admin: 09/07/20 12:27 Dose: 10 ml Documented by: Sodium Chloride (Sodium Chloride 0.9% 2.5 Ml Syringe) 2.5 ml FLUSH ASDIRECTED PRN PRN Reason: Keep Vein Open Last Admin: 09/07/20 12:27 Dose: 2.5 ml Documented by: - Exam General: Alert, Oriented, Cooperative, No Acute Distress Peripheral Pulses: 1+: Posterior Tibial (L), Posterior Tibial (R), Dorsalis Pedis (L), Dorsalis Pedis (R) Skin: Warm Physical Findings Comments:: Drainage to right foot dorsal and plantar ulcer sites is minimal to moderate. Minimal purulence is noted even with manual exanguination, drainage is serosanguinous. Right lower extremity distal erythema and skin temperature are reduced but still present. Unstageable ulcer to plantar left foot is dry and stable. Sepsis Event Note - Evaluation Sepsis Screening Result: No Definite Risk - Focused Exam Vital Signs: Vital Signs Temp Pulse Resp BP Pulse Ox 09/09/20 11:11 37 C 82 17 121/70 92 L 09/09/20 07:25 36.4 C 83 18 120/68 93 L 09/09/20 05:00 37.3 C 82 18 132/75 95 Consult PN Assessment/Plan POD#: 1 Procedures: Procedures ASSAY OF CK (CPK) (08/24/20) ASSAY OF LACTIC ACID (08/24/20) ASSAY OF MAGNESIUM (08/16/20) ASSAY OF PHOSPHORUS (08/16/20) ASSAY OF VANCOMYCIN (08/24/20) BLOOD CULTURE FOR BACTERIA (08/24/20) C-REACTIVE PROTEIN (08/24/20) COMPLETE CBC W/AUTO DIFF WBC (08/24/20) COMPREHEN METABOLIC PANEL (08/24/20) CT LOWER EXTREMITY W/O DYE (08/24/20) EMERGENCY DEPT VISIT (08/24/20) EXTREMITY STUDY (08/16/20) GLUCOSE BLOOD TEST (08/24/20) GLYCOSYLATED HEMOGLOBIN TEST (08/24/20) METABOLIC PANEL TOTAL CA (08/24/20) PT EVAL LOW COMPLEX 20 MIN (08/24/20) RBC SED RATE AUTOMATED (08/24/20) ROUTINE VENIPUNCTURE (08/24/20) SARS-COV-2 COVID-19 AMP PRB (08/24/20) THER/DIAG CONCURRENT INF (08/24/20) THER/PROPH/DIAG IV INF INIT (08/24/20) URINALYSIS AUTO W/SCOPE (08/24/20) X-RAY EXAM CHEST 1 VIEW (08/24/20) X-RAY EXAM OF FOOT (08/23/20) (1) Diabetic ulcer of foot associated with diabetes mellitus due to underlying condition, limited to breakdown of skin SNOMED Code(s): 598717630, 739213215 Code(s): E08.621 - DIABETES MELLITUS DUE TO UNDERLYING CONDITION W FOOT ULCER; L97.501 - NON-PRS CHR ULCER OTH PRT UNSP FOOT LIMITED TO BRKDWN SKIN Current Visit: Yes Qualifiers: Diabetic foot ulcer location: unspecified part of foot Laterality: right Qualified Code(s): E08.621 - Diabetes mellitus due to underlying condition with foot ulcer; L97.511 - Non-pressure chronic ulcer of other part of right foot limited to breakdown of skin (2) Diabetic foot ulcer SNOMED Code(s): 616573553 Code(s): E11.621 - TYPE 2 DIABETES MELLITUS WITH FOOT ULCER; L97.509 - NON- PRESSURE CHRONIC ULCER OTH PRT UNSP FOOT W UNSP SEVERITY Current Visit: No Qualifiers: Diabetes mellitus type: type 2 Laterality: right Non-pressure ulcer stage: with necrosis of muscle Assessment:: ulcer is stable but deep - it probes to level of tendon and small amount of 2nd extensor tendon no longer present following debridement of necrotic portion yesterday in [place]. The plantar ulcer has notably less drainage. The first interspace has a void that will be a challenge to fill with healthy tissue. Problem List Initiated/Reviewed/Updated: Yes My Orders Last 24 Hours: My Active Orders 09/08/20 17:59 ANAEROBIC CULTURE Routine CULTURE WOUND [RM] Routine GRAM STAIN [RM] Routine Plan: Patient examined and evaluated. Dressing change performed. Packing removed, right foot dorsal and plantar ulcer flushed with saline, dried, repacked with half inch iodoform packing, overlaying gauze and secured with kerlix roll and luz bandage. I emphasized with patient minimal heel walking and importance of consistent blood sugar control. Continue IV antibotics. Both the culture taken in my office on 09/05 and in the ER on 09/07 have resulted in S. aureus, not MRSA. I will order a wound vac to be placed in my office the day following discharge. If patient continues to improve I agree it would be reasonable to plan for discharge in 2 to 3 days. Will follow.
[2020-09-09] MEDS: Enoxaparin 40 MG/0.4 ML Syringe SUBCUT SCH (16:03)
[2020-09-09] MEDS: atorvaSTATin 20 MG Tab PO SCH (20:09)
[2020-09-10] MEDS: Piperacillin/Tazobactam 4.5 GM in Sodium Chloride 0.9% 100 ML IV SCH ×2 (03:57→09:39)
[2020-09-10] MEDS: VANCOmycin 1.5 GM/300 ML 1.5 GM in Premix Bag 1 BAG IV SCH (05:09)
[2020-09-10 05:59] LABS: BLOOD UREA NITROGEN,BUN 10 mg/dL (7.0-18.0); CARBON DIOXIDE,CO2 25.7 mmol/L (21.0-32.0); CHLORIDE,CL 103 mmol/L (98-107); GLUCOSE RANDOM 143 mg/dL (74-106); POTASSIUM,K 3.8 mmol/L (3.5-5.1); SODIUM,NA 130 mmol/L (136-145)
[2020-09-10] MEDS: Insulin Isophane NPH, Human 100 Units/ML 10 ML Vial SUBCUT SCH ×2 (07:37→17:47)
[2020-09-10] MEDS: Insulin Aspart 100 Units/ML 3 ML Pen SUBCUT SCH ×3 (07:41→17:46)
[2020-09-10] MEDS: Acetaminophen 325 MG Tab PO PRN ×3 (08:15→22:50)
[2020-09-10] MEDS: Gabapentin 300 MG Cap PO SCH (08:16)
[2020-09-10] MEDS: DULoxetine 30 MG Cap PO SCH (08:16)
[2020-09-10] MEDS ORDERED: Magnesium Sulfate/Water 2 GM/50 ML Premix Bag IV ONE (10:52)
[2020-09-10] MEDS ORDERED: Magnesium Sulfate/Water 2 GM/50 ML BAG IV ONE (11:00)
--- NOTE | 2020-09-10 11:07 | PCM.PN ---
- General Info Date of Service: 09/10/20 - Review of Systems Systems Review Comment:: patient feeling better, no foot pain, no fevers - Patient Data Vitals - Most Recent: Last Vital Signs Temp 36.5 C 09/10/20 07:36 Pulse 75 09/10/20 07:36 Resp 17 09/10/20 07:36 BP 153/67 H 09/10/20 07:36 Pulse Ox 94 L 09/10/20 07:36 Weight - Most Recent: 102.965 kg I&O - Last 24 Hours: Intake & Output 09/09/20 09/10/20 09/10/20 22:59 06:59 14:59 Intake Total 1900 1350 Output Total 750 2150 Balance 1150 -800 Lab Results Last 24 Hours: Laboratory Results - last 24 hr 09/09/20 09/09/20 09/09/20 Range/Units 11:36 13:34 17:52 WBC (4.0-11.0) K/uL RBC (4.30-5.90) M/uL Hgb (12.0-16.0) g/dL Hct (36.0-46.0) % MCV (80.0-98.0) fL MCH (27.0-32.0) pg MCHC (31.0-37.0) g/dL RDW Std Deviation (28.0-62.0) fl RDW Coeff of Olimpia (11.0-15.0) % Plt Count (150-400) K/uL MPV (7.40-12.00) fL Neut % (Auto) (48.0-80.0) % Lymph % (Auto) (16.0-40.0) % Parke % (Auto) (0.0-15.0) % Eos % (Auto) (0.0-7.0) % Baso % (Auto) (0.0-1.5) % Neut # (Auto) (1.4-5.7) K/uL Lymph # (Auto) (0.6-2.4) K/uL Parke # (Auto) (0.0-0.8) K/uL Eos # (Auto) (0.0-0.7) K/uL Baso # (Auto) (0.0-0.1) K/uL Nucleated RBC % /100WBC Nucleated RBCs # K/uL Sodium (136-145) mmol/L Potassium (3.5-5.1) mmol/L Chloride (98-107) mmol/L Carbon Dioxide (21.0-32.0) mmol/L BUN (7.0-18.0) mg/dL Creatinine (0.6-1.0) mg/dL Est Cr Clr Drug Dosing mL/min Estimated GFR (MDRD) ml/min Glucose (74-106) mg/dL POC Glucose 202 H 209 H (60-110) mg/dL Calcium (8.5-10.1) mg/dL Magnesium (1.8-2.4) mg/dL Vancomycin Trough 11.8 H (5.0-10.0) ug/mL 09/10/20 09/10/20 09/10/20 Range/Units 05:21 05:21 06:42 WBC 9.29 (4.0-11.0) K/uL RBC 3.80 L (4.30-5.90) M/uL Hgb 11.8 L (12.0-16.0) g/dL Hct 35.2 L (36.0-46.0) % MCV 92.6 (80.0-98.0) fL MCH 31.1 (27.0-32.0) pg MCHC 33.5 (31.0-37.0) g/dL RDW Std Deviation 40.6 (28.0-62.0) fl RDW Coeff of Olimpia 12 (11.0-15.0) % Plt Count 319 (150-400) K/uL MPV 10.30 (7.40-12.00) fL Neut % (Auto) 62.8 (48.0-80.0) % Lymph % (Auto) 24.1 (16.0-40.0) % Parke % (Auto) 8.5 (0.0-15.0) % Eos % (Auto) 4.3 (0.0-7.0) % Baso % (Auto) 0.3 (0.0-1.5) % Neut # (Auto) 5.8 H (1.4-5.7) K/uL Lymph # (Auto) 2.2 (0.6-2.4) K/uL Parke # (Auto) 0.8 (0.0-0.8) K/uL Eos # (Auto) 0.4 (0.0-0.7) K/uL Baso # (Auto) 0.0 (0.0-0.1) K/uL Nucleated RBC % 0.0 /100WBC Nucleated RBCs # 0 K/uL Sodium 130 L (136-145) mmol/L Potassium 3.8 (3.5-5.1) mmol/L Chloride 103 (98-107) mmol/L Carbon Dioxide 25.7 (21.0-32.0) mmol/L BUN 10 (7.0-18.0) mg/dL Creatinine 0.8 (0.6-1.0) mg/dL Est Cr Clr Drug Dosing 70.66 mL/min Estimated GFR (MDRD) > 60.0 ml/min Glucose 143 H (74-106) mg/dL POC Glucose 134 H (60-110) mg/dL Calcium 8.7 (8.5-10.1) mg/dL Magnesium 1.4 L (1.8-2.4) mg/dL Vancomycin Trough (5.0-10.0) ug/mL Kofi Results Last 24 Hours: Microbiology 09/08/20 17:59 Gram Stain - Final Foot, Right Wound Culture - Final Staphylococcus Aureus Skin Ronit 09/07/20 12:20 Aerobic Blood Culture - Preliminary Blood - Venous - Lab Draw NO GROWTH AFTER 2 DAYS Anaerobic Blood Culture - Preliminary NO GROWTH AFTER 2 DAYS 09/07/20 12:10 Aerobic Blood Culture - Preliminary Blood - Venous NO GROWTH AFTER 2 DAYS Anaerobic Blood Culture - Preliminary NO GROWTH AFTER 2 DAYS 09/07/20 14:08 Wound Culture - Final Foot, Right Staphylococcus Aureus Skin Ronit Med Orders - Current: Current Medications Acetaminophen (Acetaminophen 325 Mg Tab) 650 mg PO Q4H PRN PRN Reason: Pain (Mild 1-3)/fever Last Admin: 09/10/20 08:15 Dose: 650 mg Documented by: Atorvastatin Calcium (Atorvastatin 20 Mg Tab) 20 mg PO BEDTIME МАРИНА Last Admin: 09/09/20 20:09 Dose: 20 mg Documented by: Dextrose/Water (50% Dextrose In Water 50 Ml Syringe) 50 ml IV ASDIRECTED PRN PRN Reason: Hypoglycemia Docusate Sodium (Docusate Sodium 100 Mg Cap) 100 mg PO BID PRN PRN Reason: Constipation Duloxetine HCl (Duloxetine 30 Mg Cap) 30 mg PO DAILY [facility] Last Admin: 09/10/20 08:16 Dose: 30 mg Documented by: Enoxaparin Sodium (Enoxaparin 40 Mg/0.4 Ml Syringe) 40 mg SUBCUT Q24H [facility] Last Admin: 09/09/20 16:03 Dose: 40 mg Documented by: Gabapentin (Gabapentin 300 Mg Cap) 300 mg PO DAILY [facility] Last Admin: 09/10/20 08:16 Dose: 300 mg Documented by: Glucagon (Glucagon,Human Recombinant 1 Mg Vial) 1 mg IM ASDIRECTED PRN PRN Reason: Hypoglycemia Magnesium Sulfate (Magnesium Sulfate In Water 2 Gm/50 Ml) 2 gm in 50 mls @ 50 mls/hr IV ONETIME ONE Stop: 09/10/20 11:59 Cefazolin Sodium/Dextrose 2 gm (/ Premix) 50 mls @ 100 mls/hr IV Q8H [facility] Insulin Aspart (Insulin Aspart 100 Units/Ml 3 Ml Pen) 0 unit SUBCUT TIDAC [facility]; Protocol Last Admin: 09/10/20 07:41 Dose: Not Given Documented by: Insulin Human NPH (Insulin Isophane Nph, Human 100 Units/Ml 10 Ml Vial) 20 unit SUBCUT BIDAC [facility] Last Admin: 09/10/20 07:37 Dose: 20 units Documented by: Morphine Sulfate (Morphine 2 Mg/Ml Syringe) 2 mg IVPUSH Q2H PRN PRN Reason: Pain (severe 7-10) Ondansetron HCl (Ondansetron 4 Mg/2 Ml Sdv) 4 mg IVPUSH Q4H PRN PRN Reason: Nausea Oxycodone HCl (Oxycodone 5 Mg Tab) 5 mg PO Q4H PRN PRN Reason: Pain (moderate 4-6) Last Admin: 09/09/20 09:39 Dose: 5 mg Documented by: Sodium Chloride (Sodium Chloride 0.9% 2.5 Ml Syringe) 2.5 ml FLUSH ASDIRECTED PRN PRN Reason: Keep Vein Open Discontinued Medications Bupivacaine HCl (Bupivacaine 0.5% 10 Ml Sdv) Confirm Administered Dose 10 ml .ROUTE .STK-MED ONE Stop: 09/08/20 16:48 Famotidine (Famotidine 20 Mg/2 Ml Sdv) 40 mg IVPUSH ONETIME ONE Stop: 09/08/20 14:04 Last Admin: 09/08/20 14:25 Dose: 40 mg Documented by: Fentanyl (Fentanyl 100 Mcg/2 Ml Sdv) Confirm Administered Dose 100 mcg .ROUTE .STK-MED ONE Stop: 09/08/20 17:33 Gadobenate Dimeglumine (Gadobenate Dimeglumine 529 Mg/Ml 20 Ml Sdv) 20 ml IVPUSH ONETIME STA Stop: 09/08/20 07:38 Last Admin: 09/08/20 07:39 Dose: 20 ml Documented by: Sodium Chloride (Normal Saline) 1,000 mls @ 999 mls/hr IV .Bolus ONE Stop: 09/07/20 12:43 Last Admin: 09/07/20 12:25 Dose: 999 mls/hr Documented by: Vancomycin HCl 1,500 mg/ (Sodium Chloride) 100 mls @ 100 mls/hr IV ONETIME ONE Stop: 09/07/20 12:42 Last Admin: 09/07/20 13:22 Dose: Not Given Documented by: Piperacillin Sod/Tazobactam (Sod 3.375 gm/ Sodium Chloride) 50 mls @ 100 mls/hr IV ONETIME ONE Stop: 09/07/20 12:12 Last Admin: 09/07/20 12:27 Dose: 100 mls/hr Documented by: Magnesium Sulfate 2 gm/ Premix 50 mls @ 50 mls/hr IV ONETIME ONE Stop: 09/07/20 13:51 Last Admin: 09/07/20 14:00 Dose: 50 mls/hr Documented by: Vancomycin HCl 1.5 gm/ Premix 300 mls @ 200 mls/hr IV ONETIME ONE Stop: 09/07/20 14:50 Last Admin: 09/07/20 14:00 Dose: 200 mls/hr Documented by: Sodium Chloride (Normal Saline) 1,000 mls @ 125 mls/hr IV Q8H [facility] Last Admin: 09/09/20 13:43 Dose: Not Given Documented by: Piperacillin Sod/Tazobactam (Sod 4.5 gm/ Sodium Chloride) 100 mls @ 100 mls/hr IV Q8H [facility] Last Admin: 09/08/20 04:29 Dose: 100 mls/hr Documented by: Vancomycin HCl 1.5 gm/ Premix 300 mls @ 200 mls/hr IV Q12H МАРИНА Stop: 09/09/20 16:00 Last Admin: 09/09/20 14:20 Dose: 200 mls/hr Documented by: Piperacillin Sod/Tazobactam (Sod 4.5 gm/ Sodium Chloride) 100 mls @ 100 mls/hr IV Q6H [facility] Last Admin: 09/10/20 09:39 Dose: 100 mls/hr Documented by: Vancomycin HCl 1.5 gm/ Premix 300 mls @ 200 mls/hr IV Q8H [facility] Last Admin: 09/10/20 05:09 Dose: 200 mls/hr Documented by: Lidocaine HCl (Lidocaine 1% 20 Ml Mdv) Confirm Administered Dose 20 ml .ROUTE .STK-MED ONE Stop: 09/08/20 16:48 Metoclopramide HCl (Metoclopramide 10 Mg/2 Ml Sdv) 10 mg IVPUSH ONETIME ONE Stop: 09/08/20 14:06 Last Admin: 09/08/20 14:25 Dose: 10 mg Documented by: Midazolam HCl (Midazolam 1 Mg/Ml 2 Ml Sdv) Confirm Administered Dose 2 mg .ROUTE .STK-MED ONE Stop: 09/08/20 17:33 Ondansetron HCl (Ondansetron 4 Mg/2 Ml Sdv) Confirm Administered Dose 4 mg .ROUTE .STK-MED ONE Stop: 09/07/20 13:59 Last Admin: 09/07/20 14:03 Dose: Not Given Documented by: Ondansetron HCl (Ondansetron 4 Mg/2 Ml Sdv) 4 mg IVPUSH ONETIME ONE Stop: 09/07/20 14:01 Last Admin: 09/07/20 14:03 Dose: 4 mg Documented by: Oxycodone/Acetaminophen (Acetaminophen/Oxycodone 325-5 Mg Tab) 2 tab PO ONETIME ONE Stop: 09/07/20 11:44 Last Admin: 09/07/20 12:25 Dose: 2 tab Documented by: Sodium Chloride (Sodium Chloride 0.9% 10 Ml Syringe) 10 ml FLUSH ASDIRECTED PRN PRN Reason: Keep Vein Open Last Admin: 09/07/20 12:27 Dose: 10 ml Documented by: Sodium Chloride (Sodium Chloride 0.9% 2.5 Ml Syringe) 2.5 ml FLUSH ASDIRECTED PRN PRN Reason: Keep Vein Open Last Admin: 09/07/20 12:27 Dose: 2.5 ml Documented by: Vancomycin HCl (Pharmacy To Dose - Vancomycin) 1 dose .XX ASDIRECTED МАРИНА - Exam General: Alert, Oriented Lungs: Clear to Auscultation, Normal Respiratory Effort Cardiovascular: Regular Rate, Regular Rhythm GI/Abdominal Exam: Normal Bowel Sounds, Soft, Non-Tender Extremities: No Pedal Edema, Other (erythema and edema of the foot resolving) - Patient Data Lab Results Last 24 hrs: Laboratory Results - last 24 hr 09/09/20 09/09/20 09/09/20 Range/Units 11:36 13:34 17:52 WBC (4.0-11.0) K/uL RBC (4.30-5.90) M/uL Hgb (12.0-16.0) g/dL Hct (36.0-46.0) % MCV (80.0-98.0) fL MCH (27.0-32.0) pg MCHC (31.0-37.0) g/dL RDW Std Deviation (28.0-62.0) fl RDW Coeff of Olimpia (11.0-15.0) % Plt Count (150-400) K/uL MPV (7.40-12.00) fL Neut % (Auto) (48.0-80.0) % Lymph % (Auto) (16.0-40.0) % Parke % (Auto) (0.0-15.0) % Eos % (Auto) (0.0-7.0) % Baso % (Auto) (0.0-1.5) % Neut # (Auto) (1.4-5.7) K/uL Lymph # (Auto) (0.6-2.4) K/uL Parke # (Auto) (0.0-0.8) K/uL Eos # (Auto) (0.0-0.7) K/uL Baso # (Auto) (0.0-0.1) K/uL Nucleated RBC % /100WBC Nucleated RBCs # K/uL Sodium (136-145) mmol/L Potassium (3.5-5.1) mmol/L Chloride (98-107) mmol/L Carbon Dioxide (21.0-32.0) mmol/L BUN (7.0-18.0) mg/dL Creatinine (0.6-1.0) mg/dL Est Cr Clr Drug Dosing mL/min Estimated GFR (MDRD) ml/min Glucose (74-106) mg/dL POC Glucose 202 H 209 H (60-110) mg/dL Calcium (8.5-10.1) mg/dL Magnesium (1.8-2.4) mg/dL Vancomycin Trough 11.8 H (5.0-10.0) ug/mL 09/10/20 09/10/20 09/10/20 Range/Units 05:21 05:21 06:42 WBC 9.29 (4.0-11.0) K/uL RBC 3.80 L (4.30-5.90) M/uL Hgb 11.8 L (12.0-16.0) g/dL Hct 35.2 L (36.0-46.0) % MCV 92.6 (80.0-98.0) fL MCH 31.1 (27.0-32.0) pg MCHC 33.5 (31.0-37.0) g/dL RDW Std Deviation 40.6 (28.0-62.0) fl RDW Coeff of Olimpia 12 (11.0-15.0) % Plt Count 319 (150-400) K/uL MPV 10.30 (7.40-12.00) fL Neut % (Auto) 62.8 (48.0-80.0) % Lymph % (Auto) 24.1 (16.0-40.0) % Parke % (Auto) 8.5 (0.0-15.0) % Eos % (Auto) 4.3 (0.0-7.0) % Baso % (Auto) 0.3 (0.0-1.5) % Neut # (Auto) 5.8 H (1.4-5.7) K/uL Lymph # (Auto) 2.2 (0.6-2.4) K/uL Parke # (Auto) 0.8 (0.0-0.8) K/uL Eos # (Auto) 0.4 (0.0-0.7) K/uL Baso # (Auto) 0.0 (0.0-0.1) K/uL Nucleated RBC % 0.0 /100WBC Nucleated RBCs # 0 K/uL Sodium 130 L (136-145) mmol/L Potassium 3.8 (3.5-5.1) mmol/L Chloride 103 (98-107) mmol/L Carbon Dioxide 25.7 (21.0-32.0) mmol/L BUN 10 (7.0-18.0) mg/dL Creatinine 0.8 (0.6-1.0) mg/dL Est Cr Clr Drug Dosing 70.66 mL/min Estimated GFR (MDRD) > 60.0 ml/min Glucose 143 H (74-106) mg/dL POC Glucose 134 H (60-110) mg/dL Calcium 8.7 (8.5-10.1) mg/dL Magnesium 1.4 L (1.8-2.4) mg/dL Vancomycin Trough (5.0-10.0) ug/mL Result Diagrams: 09/10/20 05:21 09/10/20 05:21 Kofi Results Last 24 hrs: Microbiology 09/08/20 17:59 Gram Stain - Final Foot, Right Wound Culture - Final Staphylococcus Aureus Skin Ronit 09/07/20 12:20 Aerobic Blood Culture - Preliminary Blood - Venous - Lab Draw NO GROWTH AFTER 2 DAYS Anaerobic Blood Culture - Preliminary NO GROWTH AFTER 2 DAYS 09/07/20 12:10 Aerobic Blood Culture - Preliminary Blood - Venous NO GROWTH AFTER 2 DAYS Anaerobic Blood Culture - Preliminary NO GROWTH AFTER 2 DAYS 09/07/20 14:08 Wound Culture - Final Foot, Right Staphylococcus Aureus Skin Ronit Sepsis Event Note - Evaluation Sepsis Screening Result: No Definite Risk - Focused Exam Vital Signs: Vital Signs Temp Pulse Resp BP Pulse Ox 09/10/20 07:36 36.5 C 75 17 153/67 H 94 L 09/10/20 03:55 36.8 C 75 16 149/86 H 94 L 09/10/20 00:00 36.5 C 70 18 111/59 L 94 L - Problem List Review Problem List Initiated/Reviewed/Updated: Yes - My Orders Last 24 Hours: My Active Orders 09/09/20 21:00 atorvaSTATin [Lipitor] 20 mg PO BEDTIME 09/10/20 11:00 Magnesium Sulfate/Water [Magnesium Sulfate in Water 2 GM/50 ML] 2 gm in 50 ml IV ONETIME ceFAZolin [Ancef 1 GM/50 ML] 1 gm Premix Bag 1 bag IV Q8H 09/11/20 05:11 BASIC METABOLIC PANEL,BMP [CHEM] AM CBC WITH AUTO DIFF [HEME] AM MAGNESIUM [CHEM] AM - Plan Plan:: This 55-year-old female admitted with cellulitis and right foot diabetic ulcer. 1. Cellulitis/right foot diabetic ulcer -Cultures are growing MSSA will switch antibiotics to Cefazolin 2g q8hrs -MRI shows ulcer with multilobulated abscess involving tendon, possible early osteo or septic arthritis -Dr. Pete performed I&D of abscess 2. DM type II, uncontrolled -Blood sugar checks 3 times daily before meals and as needed -NovoLog sliding scale insulin with meals -Continue Novolin H 20 units twice daily -ADA diet 3. Hypertension/HLD -Monitor blood pressures we will hold lisinopril due to softer blood pressure on admission -Continue statin VTE prophylaxis: Lovenox CODE STATUS: Full code Dispo: 2 to 3 days pending improvement.
[2020-09-10] MEDS: ceFAZolin 2 GM in Premix Bag 1 BAG IV SCH ×2 (11:47→18:02)
[2020-09-10] MEDS ORDERED: Bacitracin Oint 28.35 GM Tube TOP ONE (12:40)
--- NOTE | 2020-09-10 13:04 | PCM.CONSN ---
- General Info Date of Service: 09/10/20 Admission Dx/Problem (Free Text): Admission Diagnosis/Problem Admission Diagnosis/Problem Diabetic foot ulcer Subjective Update: Patient confirms she is feeling well today and denies any pain. - Review of Systems General: Reports: No Symptoms - Patient Data Vitals - Most Recent: Last Vital Signs Temp 36.6 C 09/10/20 11:43 Pulse 81 09/10/20 11:43 Resp 17 09/10/20 11:43 BP 150/79 H 09/10/20 11:43 Pulse Ox 93 L 09/10/20 11:43 Weight - Most Recent: 102.965 kg I&O - Last 24 Hours: Intake & Output 09/09/20 09/10/20 09/10/20 22:59 06:59 14:59 Intake Total 1900 1350 Output Total 750 2150 Balance 1150 -800 Lab Results Last 24 Hours: Laboratory Results - last 24 hr 09/09/20 09/09/20 09/10/20 Range/Units 13:34 17:52 05:21 WBC 9.29 (4.0-11.0) K/uL RBC 3.80 L (4.30-5.90) M/uL Hgb 11.8 L (12.0-16.0) g/dL Hct 35.2 L (36.0-46.0) % MCV 92.6 (80.0-98.0) fL MCH 31.1 (27.0-32.0) pg MCHC 33.5 (31.0-37.0) g/dL RDW Std Deviation 40.6 (28.0-62.0) fl RDW Coeff of Olimpia 12 (11.0-15.0) % Plt Count 319 (150-400) K/uL MPV 10.30 (7.40-12.00) fL Neut % (Auto) 62.8 (48.0-80.0) % Lymph % (Auto) 24.1 (16.0-40.0) % [place] % (Auto) 8.5 (0.0-15.0) % Eos % (Auto) 4.3 (0.0-7.0) % Baso % (Auto) 0.3 (0.0-1.5) % Neut # (Auto) 5.8 H (1.4-5.7) K/uL Lymph # (Auto) 2.2 (0.6-2.4) K/uL [place] # (Auto) 0.8 (0.0-0.8) K/uL Eos # (Auto) 0.4 (0.0-0.7) K/uL Baso # (Auto) 0.0 (0.0-0.1) K/uL Nucleated RBC % 0.0 /100WBC Nucleated RBCs # 0 K/uL Sodium (136-145) mmol/L Potassium (3.5-5.1) mmol/L Chloride (98-107) mmol/L Carbon Dioxide (21.0-32.0) mmol/L BUN (7.0-18.0) mg/dL Creatinine (0.6-1.0) mg/dL Est Cr Clr Drug Dosing mL/min Estimated GFR (MDRD) ml/min Glucose (74-106) mg/dL POC Glucose 209 H (60-110) mg/dL Calcium (8.5-10.1) mg/dL Magnesium (1.8-2.4) mg/dL Vancomycin Trough 11.8 H (5.0-10.0) ug/mL 09/10/20 09/10/20 09/10/20 Range/Units 05:21 06:42 11:46 WBC (4.0-11.0) K/uL RBC (4.30-5.90) M/uL Hgb (12.0-16.0) g/dL Hct (36.0-46.0) % MCV (80.0-98.0) fL MCH (27.0-32.0) pg MCHC (31.0-37.0) g/dL RDW Std Deviation (28.0-62.0) fl RDW Coeff of Olimpia (11.0-15.0) % Plt Count (150-400) K/uL MPV (7.40-12.00) fL Neut % (Auto) (48.0-80.0) % Lymph % (Auto) (16.0-40.0) % [place] % (Auto) (0.0-15.0) % Eos % (Auto) (0.0-7.0) % Baso % (Auto) (0.0-1.5) % Neut # (Auto) (1.4-5.7) K/uL Lymph # (Auto) (0.6-2.4) K/uL [place] # (Auto) (0.0-0.8) K/uL Eos # (Auto) (0.0-0.7) K/uL Baso # (Auto) (0.0-0.1) K/uL Nucleated RBC % /100WBC Nucleated RBCs # K/uL Sodium 130 L (136-145) mmol/L Potassium 3.8 (3.5-5.1) mmol/L Chloride 103 (98-107) mmol/L Carbon Dioxide 25.7 (21.0-32.0) mmol/L BUN 10 (7.0-18.0) mg/dL Creatinine 0.8 (0.6-1.0) mg/dL Est Cr Clr Drug Dosing 70.66 mL/min Estimated GFR (MDRD) > 60.0 ml/min Glucose 143 H (74-106) mg/dL POC Glucose 134 H 203 H (60-110) mg/dL Calcium 8.7 (8.5-10.1) mg/dL Magnesium 1.4 L (1.8-2.4) mg/dL Vancomycin Trough (5.0-10.0) ug/mL Kofi Results Last 24 Hours: Microbiology 09/07/20 12:20 Aerobic Blood Culture - Preliminary Blood - Venous - Lab Draw NO GROWTH AFTER 3 DAYS Anaerobic Blood Culture - Preliminary NO GROWTH AFTER 3 DAYS 09/07/20 12:10 Aerobic Blood Culture - Preliminary Blood - Venous NO GROWTH AFTER 3 DAYS Anaerobic Blood Culture - Preliminary NO GROWTH AFTER 3 DAYS 09/08/20 17:59 Gram Stain - Final Foot, Right Wound Culture - Final Staphylococcus Aureus Skin Ronit Med Orders - Current: Current Medications Acetaminophen (Acetaminophen 325 Mg Tab) 650 mg PO Q4H PRN PRN Reason: Pain (Mild 1-3)/fever Last Admin: 09/10/20 08:15 Dose: 650 mg Documented by: Atorvastatin Calcium (Atorvastatin 20 Mg Tab) 20 mg PO BEDTIME МАРИНА Last Admin: 09/09/20 20:09 Dose: 20 mg Documented by: Dextrose/Water (50% Dextrose In Water 50 Ml Syringe) 50 ml IV ASDIRECTED PRN PRN Reason: Hypoglycemia Docusate Sodium (Docusate Sodium 100 Mg Cap) 100 mg PO BID PRN PRN Reason: Constipation Duloxetine HCl (Duloxetine 30 Mg Cap) 30 mg PO DAILY [facility] Last Admin: 09/10/20 08:16 Dose: 30 mg Documented by: Enoxaparin Sodium (Enoxaparin 40 Mg/0.4 Ml Syringe) 40 mg SUBCUT Q24H [facility] Last Admin: 09/09/20 16:03 Dose: 40 mg Documented by: Gabapentin (Gabapentin 300 Mg Cap) 300 mg PO DAILY [facility] Last Admin: 09/10/20 08:16 Dose: 300 mg Documented by: Glucagon (Glucagon,Human Recombinant 1 Mg Vial) 1 mg IM ASDIRECTED PRN PRN Reason: Hypoglycemia Cefazolin Sodium/Dextrose 2 gm (/ Premix) 50 mls @ 100 mls/hr IV Q8H [facility] Last Admin: 09/10/20 11:47 Dose: 100 mls/hr Documented by: Insulin Aspart (Insulin Aspart 100 Units/Ml 3 Ml Pen) 0 unit SUBCUT TIDAC [facility]; Protocol Last Admin: 09/10/20 11:47 Dose: 6 units Documented by: Insulin Human NPH (Insulin Isophane Nph, Human 100 Units/Ml 10 Ml Vial) 20 unit SUBCUT BIDAC [facility] Last Admin: 09/10/20 07:37 Dose: 20 units Documented by: Morphine Sulfate (Morphine 2 Mg/Ml Syringe) 2 mg IVPUSH Q2H PRN PRN Reason: Pain (severe 7-10) Ondansetron HCl (Ondansetron 4 Mg/2 Ml Sdv) 4 mg IVPUSH Q4H PRN PRN Reason: Nausea Oxycodone HCl (Oxycodone 5 Mg Tab) 5 mg PO Q4H PRN PRN Reason: Pain (moderate 4-6) Last Admin: 09/09/20 09:39 Dose: 5 mg Documented by: Sodium Chloride (Sodium Chloride 0.9% 2.5 Ml Syringe) 2.5 ml FLUSH ASDIRECTED PRN PRN Reason: Keep Vein Open Discontinued Medications Bacitracin (Bacitracin Oint 28.35 Gm Tube) 1 gm TOP ONETIME ONE Stop: 09/10/20 12:41 Last Admin: 09/10/20 12:58 Dose: 1 applicful Documented by: Bupivacaine HCl (Bupivacaine 0.5% 10 Ml Sdv) Confirm Administered Dose 10 ml .ROUTE .STK-MED ONE Stop: 09/08/20 16:48 Famotidine (Famotidine 20 Mg/2 Ml Sdv) 40 mg IVPUSH ONETIME ONE Stop: 09/08/20 14:04 Last Admin: 09/08/20 14:25 Dose: 40 mg Documented by: Fentanyl (Fentanyl 100 Mcg/2 Ml Sdv) Confirm Administered Dose 100 mcg .ROUTE .STK-MED ONE Stop: 09/08/20 17:33 Gadobenate Dimeglumine (Gadobenate Dimeglumine 529 Mg/Ml 20 Ml Sdv) 20 ml IVPUSH ONETIME STA Stop: 09/08/20 07:38 Last Admin: 09/08/20 07:39 Dose: 20 ml Documented by: Sodium Chloride (Normal Saline) 1,000 mls @ 999 mls/hr IV .Bolus ONE Stop: 09/07/20 12:43 Last Admin: 09/07/20 12:25 Dose: 999 mls/hr Documented by: Vancomycin HCl 1,500 mg/ (Sodium Chloride) 100 mls @ 100 mls/hr IV ONETIME ONE Stop: 09/07/20 12:42 Last Admin: 09/07/20 13:22 Dose: Not Given Documented by: Piperacillin Sod/Tazobactam (Sod 3.375 gm/ Sodium Chloride) 50 mls @ 100 mls/hr IV ONETIME ONE Stop: 09/07/20 12:12 Last Admin: 09/07/20 12:27 Dose: 100 mls/hr Documented by: Magnesium Sulfate 2 gm/ Premix 50 mls @ 50 mls/hr IV ONETIME ONE Stop: 09/07/20 13:51 Last Admin: 09/07/20 14:00 Dose: 50 mls/hr Documented by: Vancomycin HCl 1.5 gm/ Premix 300 mls @ 200 mls/hr IV ONETIME ONE Stop: 09/07/20 14:50 Last Admin: 09/07/20 14:00 Dose: 200 mls/hr Documented by: Sodium Chloride (Normal Saline) 1,000 mls @ 125 mls/hr IV Q8H [facility] Last Admin: 09/09/20 13:43 Dose: Not Given Documented by: Piperacillin Sod/Tazobactam (Sod 4.5 gm/ Sodium Chloride) 100 mls @ 100 mls/hr IV Q8H [facility] Last Admin: 09/08/20 04:29 Dose: 100 mls/hr Documented by: Vancomycin HCl 1.5 gm/ Premix 300 mls @ 200 mls/hr IV Q12H [facility] Stop: 09/09/20 16:00 Last Admin: 09/09/20 14:20 Dose: 200 mls/hr Documented by: Piperacillin Sod/Tazobactam (Sod 4.5 gm/ Sodium Chloride) 100 mls @ 100 mls/hr IV Q6H [facility] Last Admin: 09/10/20 09:39 Dose: 100 mls/hr Documented by: Vancomycin HCl 1.5 gm/ Premix 300 mls @ 200 mls/hr IV Q8H [facility] Last Admin: 09/10/20 05:09 Dose: 200 mls/hr Documented by: Magnesium Sulfate (Magnesium Sulfate In Water 2 Gm/50 Ml) 2 gm in 50 mls @ 50 mls/hr IV ONETIME ONE Stop: 09/10/20 11:59 Lidocaine HCl (Lidocaine 1% 20 Ml Mdv) Confirm Administered Dose 20 ml .ROUTE .STK-MED ONE Stop: 09/08/20 16:48 Metoclopramide HCl (Metoclopramide 10 Mg/2 Ml Sdv) 10 mg IVPUSH ONETIME ONE Stop: 09/08/20 14:06 Last Admin: 09/08/20 14:25 Dose: 10 mg Documented by: Midazolam HCl (Midazolam 1 Mg/Ml 2 Ml Sdv) Confirm Administered Dose 2 mg .ROUTE .STK-MED ONE Stop: 09/08/20 17:33 Ondansetron HCl (Ondansetron 4 Mg/2 Ml Sdv) Confirm Administered Dose 4 mg .ROUTE .STK-MED ONE Stop: 09/07/20 13:59 Last Admin: 09/07/20 14:03 Dose: Not Given Documented by: Ondansetron HCl (Ondansetron 4 Mg/2 Ml Sdv) 4 mg IVPUSH ONETIME ONE Stop: 09/07/20 14:01 Last Admin: 09/07/20 14:03 Dose: 4 mg Documented by: Oxycodone/Acetaminophen (Acetaminophen/Oxycodone 325-5 Mg Tab) 2 tab PO ONETIME ONE Stop: 09/07/20 11:44 Last Admin: 09/07/20 12:25 Dose: 2 tab Documented by: Sodium Chloride (Sodium Chloride 0.9% 10 Ml Syringe) 10 ml FLUSH ASDIRECTED PRN PRN Reason: Keep Vein Open Last Admin: 09/07/20 12:27 Dose: 10 ml Documented by: Sodium Chloride (Sodium Chloride 0.9% 2.5 Ml Syringe) 2.5 ml FLUSH ASDIRECTED PRN PRN Reason: Keep Vein Open Last Admin: 09/07/20 12:27 Dose: 2.5 ml Documented by: Vancomycin HCl (Pharmacy To Dose - Vancomycin) 1 dose .XX ASDIRECTED МАРИНА - Exam Peripheral Pulses: 1+: Posterior Tibial (L), Posterior Tibial (R), Dorsalis Pedis (L), Dorsalis Pedis (R) Wound/Incisions: Healing Well, Erythema Improving, Other Physical Findings Comments:: dressings intact to right foot with minimal active serous drainage right foot ulcer, both dorsal and plantar, spotting from left foot plantar ulcer Sepsis Event Note - Evaluation Sepsis Screening Result: No Definite Risk - Focused Exam Vital Signs: Vital Signs Temp Pulse Resp BP Pulse Ox 09/10/20 11:43 36.6 C 81 17 150/79 H 93 L 09/10/20 07:36 36.5 C 75 17 153/67 H 94 L 09/10/20 03:55 36.8 C 75 16 149/86 H 94 L Consult PN Assessment/Plan Procedures: Procedures ASSAY OF CK (CPK) (08/24/20) ASSAY OF LACTIC ACID (08/24/20) ASSAY OF MAGNESIUM (08/16/20) ASSAY OF PHOSPHORUS (08/16/20) ASSAY OF VANCOMYCIN (08/24/20) BLOOD CULTURE FOR BACTERIA (08/24/20) C-REACTIVE PROTEIN (08/24/20) COMPLETE CBC W/AUTO DIFF WBC (08/24/20) COMPREHEN METABOLIC PANEL (08/24/20) CT LOWER EXTREMITY W/O DYE (08/24/20) EMERGENCY DEPT VISIT (08/24/20) EXTREMITY STUDY (08/16/20) GLUCOSE BLOOD TEST (08/24/20) GLYCOSYLATED HEMOGLOBIN TEST (08/24/20) METABOLIC PANEL TOTAL CA (08/24/20) PT EVAL LOW COMPLEX 20 MIN (08/24/20) RBC SED RATE AUTOMATED (08/24/20) ROUTINE VENIPUNCTURE (08/24/20) SARS-COV-2 COVID-19 AMP PRB (08/24/20) THER/DIAG CONCURRENT INF (08/24/20) THER/PROPH/DIAG IV INF INIT (08/24/20) URINALYSIS AUTO W/SCOPE (08/24/20) X-RAY EXAM CHEST 1 VIEW (08/24/20) X-RAY EXAM OF FOOT (08/23/20) (1) Diabetic ulcer of foot associated with diabetes mellitus due to underlying condition, limited to breakdown of skin SNOMED Code(s): 433600444, 008937773 Code(s): E08.621 - DIABETES MELLITUS DUE TO UNDERLYING CONDITION W FOOT ULCER; L97.501 - NON-PRS CHR ULCER OTH PRT UNSP FOOT LIMITED TO BRKDWN SKIN Current Visit: Yes Qualifiers: Diabetic foot ulcer location: unspecified part of foot Laterality: right Qualified Code(s): E08.621 - Diabetes mellitus due to underlying condition with foot ulcer; L97.511 - Non-pressure chronic ulcer of other part of right foot limited to breakdown of skin (2) Diabetic foot ulcer SNOMED Code(s): 262525694 Code(s): E11.621 - TYPE 2 DIABETES MELLITUS WITH FOOT ULCER; L97.509 - NON- PRESSURE CHRONIC ULCER OTH PRT UNSP FOOT W UNSP SEVERITY Current Visit: No Qualifiers: Diabetes mellitus type: type 2 Laterality: right Non-pressure ulcer stage: with necrosis of muscle Assessment:: right foot: further improvement, markedly less drainage to dorsal and plantar ulcers, ulcer remains stable but deep - it probes to level of tendon and small amount of 2nd extensor tendon no longer present following debridement of necrotic portion yesterday in OR. The first interspace has a void that will be a challenge to fill with healthy tissue. Problem List Initiated/Reviewed/Updated: Yes Plan: Patient examined and evaluated. Dressing change performed. Packing removed, right foot dorsal and plantar ulcer flushed with saline, dried, repacked with half inch iodoform packing, overlaying gauze and secured with kerlix roll and luz bandage. Nurse will apply bacitracin and dry sterile bandage to left foot ulcer which is barely drainaing. I emphasized with patient minimal heel walking and importance of consistent blood sugar control. Continue IV antibotics. Culture taken in OR has resulted with MSSA consistent with cultures taken in my office on 09/05 and in the ER on 09/07. I discussed with Dr. Batres. Dr. Batres has switched antibiotic to cefazolin 2 g q 8h. While I do not see evidence of osteomyelitis, per discussion with Dr. Batres, I cannot be as confident regarding possible septic arthritis. Will discuss IV antibiotic coverage following discharge with Dr. Arteaga who will be transferring in as hospitalist for the coming week. I will order a wound vac to be placed in my office the day following discharge. If patient continues to improve I agree it would be reasonable to plan for discharge in 2 days. Will follow.
[2020-09-10] MEDS: Enoxaparin 40 MG/0.4 ML Syringe SUBCUT SCH (16:12)
[2020-09-10] MEDS: atorvaSTATin 20 MG Tab PO SCH (20:05)
[2020-09-11] MEDS: ceFAZolin 2 GM in Premix Bag 1 BAG IV SCH ×3 (03:16→18:22)
[2020-09-11] MEDS: Acetaminophen 325 MG Tab PO PRN ×2 (05:15→12:28)
[2020-09-11 06:04] LABS: BLOOD UREA NITROGEN,BUN 12 mg/dL (7.0-18.0); CARBON DIOXIDE,CO2 28.4 mmol/L (21.0-32.0); CHLORIDE,CL 103 mmol/L (98-107); GLUCOSE RANDOM 144 mg/dL (74-106); POTASSIUM,K 3.7 mmol/L (3.5-5.1); SODIUM,NA 134 mmol/L (136-145)
[2020-09-11] MEDS: Insulin Isophane NPH, Human 100 Units/ML 10 ML Vial SUBCUT SCH ×2 (07:32→17:28)
[2020-09-11] MEDS: Insulin Aspart 100 Units/ML 3 ML Pen SUBCUT SCH ×3 (07:35→17:28)
[2020-09-11] MEDS: DULoxetine 30 MG Cap PO SCH (08:12)
[2020-09-11] MEDS: Gabapentin 300 MG Cap PO SCH (08:12)
[2020-09-11] MEDS ORDERED: Magnesium Sulfate/Water 2 GM/50 ML BAG IV ONE (10:45)
--- NOTE | 2020-09-11 12:06 | PCM.PN ---
- General Info Date of Service: 09/11/20 Admission Dx/Problem (Free Text): Admission Diagnosis/Problem Admission Diagnosis/Problem Diabetic foot ulcer Subjective Update: Patient is feeling well today , c/o mild discomfort in her right calf, no redness or swelling, wound feels better - Review of Systems General: Denies: Fever, Weakness Pulmonary: Denies: Shortness of Breath, Pleuritic Chest Pain Cardiovascular: Denies: Chest Pain, Palpitations Gastrointestinal: Denies: Abdominal Pain, Constipation Genitourinary: Denies: Dysuria, Frequency, Burning Musculoskeletal: Reports: Leg Pain, Foot Pain. Denies: Neck Pain, Shoulder Pain Skin: Denies: Cyanosis, Jaundice Neurological: Denies: Confusion, Dizziness - Patient Data Vitals - Most Recent: Last Vital Signs Temp 36.5 C 09/11/20 11:40 Pulse 76 09/11/20 11:40 Resp 17 09/11/20 11:40 BP 132/69 09/11/20 11:40 Pulse Ox 95 09/11/20 11:40 Weight - Most Recent: 102.965 kg I&O - Last 24 Hours: Intake & Output 09/10/20 09/11/20 09/11/20 22:59 06:59 14:59 Intake Total 800 1010 Output Total 750 2100 Balance 50 -1090 Lab Results Last 24 Hours: Laboratory Results - last 24 hr 09/10/20 09/11/20 09/11/20 Range/Units 17:45 05:26 05:26 WBC 8.31 (4.0-11.0) K/uL RBC 4.14 L (4.30-5.90) M/uL Hgb 12.7 (12.0-16.0) g/dL Hct 37.9 (36.0-46.0) % MCV 91.5 (80.0-98.0) fL MCH 30.7 (27.0-32.0) pg MCHC 33.5 (31.0-37.0) g/dL RDW Std Deviation 40.0 (28.0-62.0) fl RDW Coeff of Olimpia 12 (11.0-15.0) % Plt Count 339 (150-400) K/uL MPV 10.20 (7.40-12.00) fL Neut % (Auto) 54.2 (48.0-80.0) % Lymph % (Auto) 31.9 (16.0-40.0) % [place] % (Auto) 8.5 (0.0-15.0) % Eos % (Auto) 4.9 (0.0-7.0) % Baso % (Auto) 0.5 (0.0-1.5) % Neut # (Auto) 4.5 (1.4-5.7) K/uL Lymph # (Auto) 2.7 H (0.6-2.4) K/uL [place] # (Auto) 0.7 (0.0-0.8) K/uL Eos # (Auto) 0.4 (0.0-0.7) K/uL Baso # (Auto) 0.0 (0.0-0.1) K/uL Nucleated RBC % 0.0 /100WBC Nucleated RBCs # 0 K/uL Sodium 134 L (136-145) mmol/L Potassium 3.7 (3.5-5.1) mmol/L Chloride 103 (98-107) mmol/L Carbon Dioxide 28.4 (21.0-32.0) mmol/L BUN 12 (7.0-18.0) mg/dL Creatinine 0.9 (0.6-1.0) mg/dL Est Cr Clr Drug Dosing 62.80 mL/min Estimated GFR (MDRD) > 60.0 ml/min Glucose 144 H (74-106) mg/dL POC Glucose 291 H (60-110) mg/dL Calcium 9.2 (8.5-10.1) mg/dL Magnesium 1.5 L (1.8-2.4) mg/dL 09/11/20 09/11/20 Range/Units 06:54 11:38 WBC (4.0-11.0) K/uL RBC (4.30-5.90) M/uL Hgb (12.0-16.0) g/dL Hct (36.0-46.0) % MCV (80.0-98.0) fL MCH (27.0-32.0) pg MCHC (31.0-37.0) g/dL RDW Std Deviation (28.0-62.0) fl RDW Coeff of Olimpia (11.0-15.0) % Plt Count (150-400) K/uL MPV (7.40-12.00) fL Neut % (Auto) (48.0-80.0) % Lymph % (Auto) (16.0-40.0) % [place] % (Auto) (0.0-15.0) % Eos % (Auto) (0.0-7.0) % Baso % (Auto) (0.0-1.5) % Neut # (Auto) (1.4-5.7) K/uL Lymph # (Auto) (0.6-2.4) K/uL [place] # (Auto) (0.0-0.8) K/uL Eos # (Auto) (0.0-0.7) K/uL Baso # (Auto) (0.0-0.1) K/uL Nucleated RBC % /100WBC Nucleated RBCs # K/uL Sodium (136-145) mmol/L Potassium (3.5-5.1) mmol/L Chloride (98-107) mmol/L Carbon Dioxide (21.0-32.0) mmol/L BUN (7.0-18.0) mg/dL Creatinine (0.6-1.0) mg/dL Est Cr Clr Drug Dosing mL/min Estimated GFR (MDRD) ml/min Glucose (74-106) mg/dL POC Glucose 132 H 192 H (60-110) mg/dL Calcium (8.5-10.1) mg/dL Magnesium (1.8-2.4) mg/dL Kofi Results Last 24 Hours: Microbiology 09/07/20 12:20 Aerobic Blood Culture - Preliminary Blood - Venous - Lab Draw NO GROWTH AFTER 3 DAYS Anaerobic Blood Culture - Preliminary NO GROWTH AFTER 3 DAYS 09/07/20 12:10 Aerobic Blood Culture - Preliminary Blood - Venous NO GROWTH AFTER 3 DAYS Anaerobic Blood Culture - Preliminary NO GROWTH AFTER 3 DAYS 09/08/20 17:59 Gram Stain - Final Foot, Right Wound Culture - Final Staphylococcus Aureus Skin Ronit Med Orders - Current: Current Medications Acetaminophen (Acetaminophen 325 Mg Tab) 650 mg PO Q4H PRN PRN Reason: Pain (Mild 1-3)/fever Last Admin: 09/11/20 05:15 Dose: 650 mg Documented by: Atorvastatin Calcium (Atorvastatin 20 Mg Tab) 20 mg PO BEDTIME МАРИНА Last Admin: 09/10/20 20:05 Dose: 20 mg Documented by: Dextrose/Water (50% Dextrose In Water 50 Ml Syringe) 50 ml IV ASDIRECTED PRN PRN Reason: Hypoglycemia Docusate Sodium (Docusate Sodium 100 Mg Cap) 100 mg PO BID PRN PRN Reason: Constipation Duloxetine HCl (Duloxetine 30 Mg Cap) 30 mg PO DAILY [facility] Last Admin: 09/11/20 08:12 Dose: 30 mg Documented by: Enoxaparin Sodium (Enoxaparin 40 Mg/0.4 Ml Syringe) 40 mg SUBCUT Q24H [facility] Last Admin: 09/10/20 16:12 Dose: 40 mg Documented by: Gabapentin (Gabapentin 300 Mg Cap) 300 mg PO DAILY [facility] Last Admin: 09/11/20 08:12 Dose: 300 mg Documented by: Glucagon (Glucagon,Human Recombinant 1 Mg Vial) 1 mg IM ASDIRECTED PRN PRN Reason: Hypoglycemia Cefazolin Sodium/Dextrose 2 gm (/ Premix) 50 mls @ 100 mls/hr IV Q8H [facility] Last Admin: 09/11/20 10:54 Dose: 100 mls/hr Documented by: Insulin Aspart (Insulin Aspart 100 Units/Ml 3 Ml Pen) 0 unit SUBCUT TIDAC [facility]; Protocol Last Admin: 09/11/20 11:41 Dose: 3 units Documented by: Insulin Human NPH (Insulin Isophane Nph, Human 100 Units/Ml 10 Ml Vial) 20 unit SUBCUT BIDAC [facility] Last Admin: 09/11/20 07:32 Dose: 20 units Documented by: Morphine Sulfate (Morphine 2 Mg/Ml Syringe) 2 mg IVPUSH Q2H PRN PRN Reason: Pain (severe 7-10) Ondansetron HCl (Ondansetron 4 Mg/2 Ml Sdv) 4 mg IVPUSH Q4H PRN PRN Reason: Nausea Oxycodone HCl (Oxycodone 5 Mg Tab) 5 mg PO Q4H PRN PRN Reason: Pain (moderate 4-6) Last Admin: 09/09/20 09:39 Dose: 5 mg Documented by: Sodium Chloride (Sodium Chloride 0.9% 2.5 Ml Syringe) 2.5 ml FLUSH ASDIRECTED PRN PRN Reason: Keep Vein Open Discontinued Medications Bacitracin (Bacitracin Oint 28.35 Gm Tube) 1 gm TOP ONETIME ONE Stop: 09/10/20 12:41 Last Admin: 09/10/20 12:58 Dose: 1 applicful Documented by: Bupivacaine HCl (Bupivacaine 0.5% 10 Ml Sdv) Confirm Administered Dose 10 ml .ROUTE .STK-MED ONE Stop: 09/08/20 16:48 Famotidine (Famotidine 20 Mg/2 Ml Sdv) 40 mg IVPUSH ONETIME ONE Stop: 09/08/20 14:04 Last Admin: 09/08/20 14:25 Dose: 40 mg Documented by: Fentanyl (Fentanyl 100 Mcg/2 Ml Sdv) Confirm Administered Dose 100 mcg .ROUTE .STK-MED ONE Stop: 09/08/20 17:33 Gadobenate Dimeglumine (Gadobenate Dimeglumine 529 Mg/Ml 20 Ml Sdv) 20 ml IVPUSH ONETIME STA Stop: 09/08/20 07:38 Last Admin: 09/08/20 07:39 Dose: 20 ml Documented by: Sodium Chloride (Normal Saline) 1,000 mls @ 999 mls/hr IV .Bolus ONE Stop: 09/07/20 12:43 Last Admin: 09/07/20 12:25 Dose: 999 mls/hr Documented by: Vancomycin HCl 1,500 mg/ (Sodium Chloride) 100 mls @ 100 mls/hr IV ONETIME ONE Stop: 09/07/20 12:42 Last Admin: 09/07/20 13:22 Dose: Not Given Documented by: Piperacillin Sod/Tazobactam (Sod 3.375 gm/ Sodium Chloride) 50 mls @ 100 mls/hr IV ONETIME ONE Stop: 09/07/20 12:12 Last Admin: 09/07/20 12:27 Dose: 100 mls/hr Documented by: Magnesium Sulfate 2 gm/ Premix 50 mls @ 50 mls/hr IV ONETIME ONE Stop: 09/07/20 13:51 Last Admin: 09/07/20 14:00 Dose: 50 mls/hr Documented by: Vancomycin HCl 1.5 gm/ Premix 300 mls @ 200 mls/hr IV ONETIME ONE Stop: 09/07/20 14:50 Last Admin: 09/07/20 14:00 Dose: 200 mls/hr Documented by: Sodium Chloride (Normal Saline) 1,000 mls @ 125 mls/hr IV Q8H МАРИНА Last Admin: 09/09/20 13:43 Dose: Not Given Documented by: Piperacillin Sod/Tazobactam (Sod 4.5 gm/ Sodium Chloride) 100 mls @ 100 mls/hr IV Q8H [facility] Last Admin: 09/08/20 04:29 Dose: 100 mls/hr Documented by: Vancomycin HCl 1.5 gm/ Premix 300 mls @ 200 mls/hr IV Q12H [facility] Stop: 09/09/20 16:00 Last Admin: 09/09/20 14:20 Dose: 200 mls/hr Documented by: Piperacillin Sod/Tazobactam (Sod 4.5 gm/ Sodium Chloride) 100 mls @ 100 mls/hr IV Q6H [facility] Last Admin: 09/10/20 09:39 Dose: 100 mls/hr Documented by: Vancomycin HCl 1.5 gm/ Premix 300 mls @ 200 mls/hr IV Q8H [facility] Last Admin: 09/10/20 05:09 Dose: 200 mls/hr Documented by: Magnesium Sulfate (Magnesium Sulfate In Water 2 Gm/50 Ml) 2 gm in 50 mls @ 50 mls/hr IV ONETIME ONE Stop: 09/10/20 11:59 Last Admin: 09/10/20 12:59 Dose: 50 mls/hr Documented by: Magnesium Sulfate (Magnesium Sulfate In Water 2 Gm/50 Ml) 2 gm in 50 mls @ 50 mls/hr IV ONETIME ONE Stop: 09/11/20 11:44 Last Admin: 09/11/20 11:41 Dose: 50 mls/hr Documented by: Lidocaine HCl (Lidocaine 1% 20 Ml Mdv) Confirm Administered Dose 20 ml .ROUTE .STK-MED ONE Stop: 09/08/20 16:48 Metoclopramide HCl (Metoclopramide 10 Mg/2 Ml Sdv) 10 mg IVPUSH ONETIME ONE Stop: 09/08/20 14:06 Last Admin: 09/08/20 14:25 Dose: 10 mg Documented by: Midazolam HCl (Midazolam 1 Mg/Ml 2 Ml Sdv) Confirm Administered Dose 2 mg .ROUTE .STK-MED ONE Stop: 09/08/20 17:33 Ondansetron HCl (Ondansetron 4 Mg/2 Ml Sdv) Confirm Administered Dose 4 mg .ROUTE .STK-MED ONE Stop: 09/07/20 13:59 Last Admin: 09/07/20 14:03 Dose: Not Given Documented by: Ondansetron HCl (Ondansetron 4 Mg/2 Ml Sdv) 4 mg IVPUSH ONETIME ONE Stop: 09/07/20 14:01 Last Admin: 09/07/20 14:03 Dose: 4 mg Documented by: Oxycodone/Acetaminophen (Acetaminophen/Oxycodone 325-5 Mg Tab) 2 tab PO ONETIME ONE Stop: 09/07/20 11:44 Last Admin: 09/07/20 12:25 Dose: 2 tab Documented by: Sodium Chloride (Sodium Chloride 0.9% 10 Ml Syringe) 10 ml FLUSH ASDIRECTED PRN PRN Reason: Keep Vein Open Last Admin: 09/07/20 12:27 Dose: 10 ml Documented by: Sodium Chloride (Sodium Chloride 0.9% 2.5 Ml Syringe) 2.5 ml FLUSH ASDIRECTED PRN PRN Reason: Keep Vein Open Last Admin: 09/07/20 12:27 Dose: 2.5 ml Documented by: Vancomycin HCl (Pharmacy To Dose - Vancomycin) 1 dose .XX ASDIRECTED МАРИНА - Exam General: Alert, Oriented, Cooperative Neck: Supple, Trachea Midline Lungs: Clear to Auscultation, Normal Respiratory Effort Cardiovascular: Regular Rate, Regular Rhythm GI/Abdominal Exam: Normal Bowel Sounds, Soft, Non-Tender Extremities: Non-Tender, Leg Pain Peripheral Pulses: 3+: Dorsalis Pedis (L), Dorsalis Pedis (R) Skin: Other (wound is clean and mostly dry) Wound/Incisions: Healing Well, Dressing Dry and Intact, Drainage - Patient Data Lab Results Last 24 hrs: Laboratory Results - last 24 hr 09/10/20 09/11/20 09/11/20 Range/Units 17:45 05:26 05:26 WBC 8.31 (4.0-11.0) K/uL RBC 4.14 L (4.30-5.90) M/uL Hgb 12.7 (12.0-16.0) g/dL Hct 37.9 (36.0-46.0) % MCV 91.5 (80.0-98.0) fL MCH 30.7 (27.0-32.0) pg MCHC 33.5 (31.0-37.0) g/dL RDW Std Deviation 40.0 (28.0-62.0) fl RDW Coeff of Olimpia 12 (11.0-15.0) % Plt Count 339 (150-400) K/uL MPV 10.20 (7.40-12.00) fL Neut % (Auto) 54.2 (48.0-80.0) % Lymph % (Auto) 31.9 (16.0-40.0) % [place] % (Auto) 8.5 (0.0-15.0) % Eos % (Auto) 4.9 (0.0-7.0) % Baso % (Auto) 0.5 (0.0-1.5) % Neut # (Auto) 4.5 (1.4-5.7) K/uL Lymph # (Auto) 2.7 H (0.6-2.4) K/uL [place] # (Auto) 0.7 (0.0-0.8) K/uL Eos # (Auto) 0.4 (0.0-0.7) K/uL Baso # (Auto) 0.0 (0.0-0.1) K/uL Nucleated RBC % 0.0 /100WBC Nucleated RBCs # 0 K/uL Sodium 134 L (136-145) mmol/L Potassium 3.7 (3.5-5.1) mmol/L Chloride 103 (98-107) mmol/L Carbon Dioxide 28.4 (21.0-32.0) mmol/L BUN 12 (7.0-18.0) mg/dL Creatinine 0.9 (0.6-1.0) mg/dL Est Cr Clr Drug Dosing 62.80 mL/min Estimated GFR (MDRD) > 60.0 ml/min Glucose 144 H (74-106) mg/dL POC Glucose 291 H (60-110) mg/dL Calcium 9.2 (8.5-10.1) mg/dL Magnesium 1.5 L (1.8-2.4) mg/dL 09/11/20 09/11/20 Range/Units 06:54 11:38 WBC (4.0-11.0) K/uL RBC (4.30-5.90) M/uL Hgb (12.0-16.0) g/dL Hct (36.0-46.0) % MCV (80.0-98.0) fL MCH (27.0-32.0) pg MCHC (31.0-37.0) g/dL RDW Std Deviation (28.0-62.0) fl RDW Coeff of Olimpia (11.0-15.0) % Plt Count (150-400) K/uL MPV (7.40-12.00) fL Neut % (Auto) (48.0-80.0) % Lymph % (Auto) (16.0-40.0) % [place] % (Auto) (0.0-15.0) % Eos % (Auto) (0.0-7.0) % Baso % (Auto) (0.0-1.5) % Neut # (Auto) (1.4-5.7) K/uL Lymph # (Auto) (0.6-2.4) K/uL [place] # (Auto) (0.0-0.8) K/uL Eos # (Auto) (0.0-0.7) K/uL Baso # (Auto) (0.0-0.1) K/uL Nucleated RBC % /100WBC Nucleated RBCs # K/uL Sodium (136-145) mmol/L Potassium (3.5-5.1) mmol/L Chloride (98-107) mmol/L Carbon Dioxide (21.0-32.0) mmol/L BUN (7.0-18.0) mg/dL Creatinine (0.6-1.0) mg/dL Est Cr Clr Drug Dosing mL/min Estimated GFR (MDRD) ml/min Glucose (74-106) mg/dL POC Glucose 132 H 192 H (60-110) mg/dL Calcium (8.5-10.1) mg/dL Magnesium (1.8-2.4) mg/dL Result Diagrams: 09/11/20 05:26 09/11/20 05:26 Kofi Results Last 24 hrs: Microbiology 09/07/20 12:20 Aerobic Blood Culture - Preliminary Blood - Venous - Lab Draw NO GROWTH AFTER 3 DAYS Anaerobic Blood Culture - Preliminary NO GROWTH AFTER 3 DAYS 09/07/20 12:10 Aerobic Blood Culture - Preliminary Blood - Venous NO GROWTH AFTER 3 DAYS Anaerobic Blood Culture - Preliminary NO GROWTH AFTER 3 DAYS 09/08/20 17:59 Gram Stain - Final Foot, Right Wound Culture - Final Staphylococcus Aureus Skin Ronit Sepsis Event Note - Evaluation Sepsis Screening Result: No Definite Risk - Focused Exam Vital Signs: Vital Signs Temp Pulse Resp BP Pulse Ox 09/11/20 11:40 36.5 C 76 17 132/69 95 09/11/20 07:35 36.4 C 77 17 149/94 H 94 L 09/11/20 03:15 36.7 C 74 18 139/83 94 L - Problem List & Annotations (1) Cellulitis SNOMED Code(s): 379596321 Code(s): L03.90 - CELLULITIS, UNSPECIFIED Status: Acute Current Visit: Yes Qualifiers: Site of cellulitis: extremity Site of cellulitis of extremity: lower extremity Laterality: right Qualified Code(s): L03.115 - Cellulitis of right lower limb (2) Diabetic ulcer of foot associated with diabetes mellitus due to underlying condition, limited to breakdown of skin SNOMED Code(s): 605187354, 292949890 Code(s): E08.621 - DIABETES MELLITUS DUE TO UNDERLYING CONDITION W FOOT ULCER; L97.501 - NON-PRS CHR ULCER OTH PRT UNSP FOOT LIMITED TO BRKDWN SKIN Status: Acute Current Visit: Yes Qualifiers: Diabetic foot ulcer location: unspecified part of foot Laterality: right Qualified Code(s): E08.621 - Diabetes mellitus due to underlying condition with foot ulcer; L97.511 - Non-pressure chronic ulcer of other part of right foot limited to breakdown of skin (3) Obesity SNOMED Code(s): 636517614, 989272144 Code(s): E66.9 - OBESITY, UNSPECIFIED Status: Chronic Current Visit: Yes (4) Diabetes SNOMED Code(s): 01337399 Code(s): E11.9 - TYPE 2 DIABETES MELLITUS WITHOUT COMPLICATIONS Status: Acute Current Visit: No (5) Hyperlipemia SNOMED Code(s): 40269350 Code(s): E78.5 - HYPERLIPIDEMIA, UNSPECIFIED Status: Chronic Current Visit: No (6) Hypertension SNOMED Code(s): 51234919 Code(s): I10 - ESSENTIAL (PRIMARY) HYPERTENSION Status: Chronic Current Visit: No (7) Neuropathy SNOMED Code(s): 985311624 Code(s): G62.9 - POLYNEUROPATHY, UNSPECIFIED Status: Chronic Current Visit: No (8) Hypomagnesemia SNOMED Code(s): 217230577 Code(s): E83.42 - HYPOMAGNESEMIA Status: Acute Current Visit: Yes - Problem List Review Problem List Initiated/Reviewed/Updated: Yes - Plan Plan:: This 55-year-old female admitted with cellulitis and right foot diabetic ulcer. 1. 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 Pete on consult, appreciate his recommendations 2. DM type II, uncontrolled -Blood sugar checks 3 times daily before meals and as needed -NovoLog sliding scale insulin with meals -Continue Novolin H 20 units twice daily -ADA diet 3. Hypertension/HLD -Monitor blood pressures we will hold lisinopril due to softer blood pressure on admission -Continue statin 4- Hypomagnesemia: repleted, recheck in AM VTE prophylaxis: Lovenox CODE STATUS: Full code Dispo: 2 to 3 days pending improvement.
--- NOTE | 2020-09-11 13:38 | PCM.PRNOTE ---
- Free Text/Narrative Note: Anes Note I was called to provide IV access for this patient. A #22 TN was placed in left wrist area. Flushes with ease. Shahida well. 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
[2020-09-11] MEDS: Enoxaparin 40 MG/0.4 ML Syringe SUBCUT SCH (15:45)
[2020-09-11] MEDS: atorvaSTATin 20 MG Tab PO SCH (20:02)
[2020-09-12] MEDS: ceFAZolin 2 GM in Premix Bag 1 BAG IV SCH ×2 (03:00→10:40)
[2020-09-12 06:06] LABS: BLOOD UREA NITROGEN,BUN 13 mg/dL (7.0-18.0); CARBON DIOXIDE,CO2 29.6 mmol/L (21.0-32.0); CHLORIDE,CL 103 mmol/L (98-107); GLUCOSE RANDOM 169 mg/dL (74-106); POTASSIUM,K 3.7 mmol/L (3.5-5.1); SODIUM,NA 140 mmol/L (136-145)
[2020-09-12] MEDS ORDERED: Gadobenate Dimeglumine 529 MG/ML 20 ML SDV IVPUSH STA (07:25)
[2020-09-12] MEDS ORDERED: Magnesium Sulfate/Water 2 GM/50 ML BAG IV ONE (08:29)
[2020-09-12] MEDS: Gabapentin 300 MG Cap PO SCH (08:43)
[2020-09-12] MEDS: Insulin Aspart 100 Units/ML 3 ML Pen SUBCUT SCH ×3 (08:43→17:24)
[2020-09-12] MEDS: DULoxetine 30 MG Cap PO SCH (08:43)
[2020-09-12] MEDS: Insulin Isophane NPH, Human 100 Units/ML 10 ML Vial SUBCUT SCH ×2 (09:09→17:21)
--- NOTE | 2020-09-12 09:26 | MR ---
HISTORY: Osteomyelitis versus septic arthritis. TECHNIQUE: MRI right foot without and with IV contrast. 20 mL MultiHance IV. COMPARISON: MRI right foot 09/07/2020. FINDINGS: Plantar forefoot wound near the 2nd MTP joint. Wound extends through the soft tissues in the 1st web space to the dorsum of the foot were there is a dorsal wound. Foci of hypointense signal in the area of the dorsal wound may be gas. No undrained fluid collection in the soft tissues. Edema and infiltration of soft tissues around the wounds fluid previously seen within the 2nd extensor tendon sheath has resolved. No new tendon sheath fluid. Diffuse edema in the foot musculature. Moderate atrophy of the foot musculature. Effusions of the 1st and 2nd MTP joints with synovial enhancement and thickening and periarticular soft tissue edema. Marrow edema in the 2nd proximal phalanx greater than 2nd metatarsal head. Progression of intermediate marrow signal in the 2nd proximal phalanx without confluent hypointense marrow replacement. No marrow replacement elsewhere. Joint spaces of the midfoot are maintained. Ankle and subtalar joints are maintained. Lisfranc ligament is intact. Distal posterior tibial, tibialis anterior, and peroneal tendons are intact. IMPRESSION: 1. Plantar foot wound extending through the soft tissues of the 1st web space to a dorsal foot wound. No undrained fluid collection. Soft tissue infiltration around the wounds likely from cellulitis. Subcutaneous edema elsewhere in the forefoot. 2. Effusions of the 1st and 2nd MTP joints similar to prior. Septic arthritis is not excluded. 3. Progression of marrow changes in the 2nd proximal phalanx since prior MRI. Favor reactive marrow change. No definite osteomyelitis. Unchanged reactive marrow edema in the 2nd metatarsal. 4. No significant tendon sheath fluid. Dictated by Micah Aden MD @ Sep 12 2020 9:25AM Signed by Dr. Micah Aden @ Sep 12 2020 9:25AM
--- NOTE | 2020-09-12 11:26 | PCM.PN ---
- General Info Date of Service: 09/12/20 Admission Dx/Problem (Free Text): Admission Diagnosis/Problem Admission Diagnosis/Problem Diabetic foot ulcer Subjective Update: Feeling well today. Denies any chest pain shortness of breath or fevers. No significant pain to left lower extremity or foot. Scant drainage seeping through dressing. Has been up ambulating to the bathroom on her heels but reports this is stretching her muscle significantly. Will consult physical therapy. Functional Status: Reports: Pain Controlled, Tolerating Diet, Ambulating, Urinating - Review of Systems General: Reports: No Symptoms. Denies: Fever, Weakness HEENT: Reports: No Symptoms. Denies: Headaches, Sore Throat Pulmonary: Reports: No Symptoms. Denies: Shortness of Breath Cardiovascular: Reports: No Symptoms. Denies: Chest Pain Gastrointestinal: Reports: No Symptoms. Denies: Abdominal Pain, Nausea, Vomitin g Genitourinary: Reports: No Symptoms. Denies: Dysuria, Frequency Musculoskeletal: Reports: No Symptoms Skin: Reports: No Symptoms Neurological: Reports: No Symptoms Psychiatric: Reports: No Symptoms - Patient Data Vitals - Most Recent: Last Vital Signs Temp 97.2 F 09/12/20 08:45 Pulse 71 09/12/20 08:45 Resp 17 09/12/20 08:45 BP 142/80 H 09/12/20 08:45 Pulse Ox 97 09/12/20 08:45 Weight - Most Recent: 102.965 kg I&O - Last 24 Hours: Intake & Output 09/11/20 09/12/20 09/12/20 22:59 06:59 14:59 Intake Total 1050 1330 50 Output Total 1200 2050 Balance -150 -720 50 Lab Results Last 24 Hours: Laboratory Results - last 24 hr 09/11/20 09/11/20 09/12/20 Range/Units 11:38 17:27 05:33 WBC 8.80 (4.0-11.0) K/uL RBC 4.08 L (4.30-5.90) M/uL Hgb 12.7 (12.0-16.0) g/dL Hct 37.6 (36.0-46.0) % MCV 92.2 (80.0-98.0) fL MCH 31.1 (27.0-32.0) pg MCHC 33.8 (31.0-37.0) g/dL RDW Std Deviation 40.2 (28.0-62.0) fl RDW Coeff of Olimpia 12 (11.0-15.0) % Plt Count 342 (150-400) K/uL MPV 10.10 (7.40-12.00) fL Neut % (Auto) 51.5 (48.0-80.0) % Lymph % (Auto) 34.7 (16.0-40.0) % [place] % (Auto) 9.4 (0.0-15.0) % Eos % (Auto) 4.1 (0.0-7.0) % Baso % (Auto) 0.3 (0.0-1.5) % Neut # (Auto) 4.5 (1.4-5.7) K/uL Lymph # (Auto) 3.1 H (0.6-2.4) K/uL [place] # (Auto) 0.8 (0.0-0.8) K/uL Eos # (Auto) 0.4 (0.0-0.7) K/uL Baso # (Auto) 0.0 (0.0-0.1) K/uL Nucleated RBC % 0.0 /100WBC Nucleated RBCs # 0 K/uL Sodium (136-145) mmol/L Potassium (3.5-5.1) mmol/L Chloride (98-107) mmol/L Carbon Dioxide (21.0-32.0) mmol/L BUN (7.0-18.0) mg/dL Creatinine (0.6-1.0) mg/dL Est Cr Clr Drug Dosing mL/min Estimated GFR (MDRD) ml/min Glucose (74-106) mg/dL POC Glucose 192 H 164 H (60-110) mg/dL Calcium (8.5-10.1) mg/dL Phosphorus (2.6-4.7) mg/dL Magnesium (1.8-2.4) mg/dL 09/12/20 09/12/20 Range/Units 05:33 08:34 WBC (4.0-11.0) K/uL RBC (4.30-5.90) M/uL Hgb (12.0-16.0) g/dL Hct (36.0-46.0) % MCV (80.0-98.0) fL MCH (27.0-32.0) pg MCHC (31.0-37.0) g/dL RDW Std Deviation (28.0-62.0) fl RDW Coeff of Olimpia (11.0-15.0) % Plt Count (150-400) K/uL MPV (7.40-12.00) fL Neut % (Auto) (48.0-80.0) % Lymph % (Auto) (16.0-40.0) % [place] % (Auto) (0.0-15.0) % Eos % (Auto) (0.0-7.0) % Baso % (Auto) (0.0-1.5) % Neut # (Auto) (1.4-5.7) K/uL Lymph # (Auto) (0.6-2.4) K/uL [place] # (Auto) (0.0-0.8) K/uL Eos # (Auto) (0.0-0.7) K/uL Baso # (Auto) (0.0-0.1) K/uL Nucleated RBC % /100WBC Nucleated RBCs # K/uL Sodium 140 (136-145) mmol/L Potassium 3.7 (3.5-5.1) mmol/L Chloride 103 (98-107) mmol/L Carbon Dioxide 29.6 (21.0-32.0) mmol/L BUN 13 (7.0-18.0) mg/dL Creatinine 0.8 (0.6-1.0) mg/dL Est Cr Clr Drug Dosing 70.66 mL/min Estimated GFR (MDRD) > 60.0 ml/min Glucose 169 H (74-106) mg/dL POC Glucose 144 H (60-110) mg/dL Calcium 8.9 (8.5-10.1) mg/dL Phosphorus 4.1 (2.6-4.7) mg/dL Magnesium 1.6 L (1.8-2.4) mg/dL Kofi Results Last 24 Hours: Microbiology 09/07/20 12:20 Aerobic Blood Culture - Preliminary Blood - Venous - Lab Draw NO GROWTH AFTER 4 DAYS Anaerobic Blood Culture - Preliminary NO GROWTH AFTER 4 DAYS 09/07/20 12:10 Aerobic Blood Culture - Preliminary Blood - Venous NO GROWTH AFTER 4 DAYS Anaerobic Blood Culture - Preliminary NO GROWTH AFTER 4 DAYS Med Orders - Current: Current Medications Acetaminophen (Acetaminophen 325 Mg Tab) 650 mg PO Q4H PRN PRN Reason: Pain (Mild 1-3)/fever Last Admin: 09/11/20 12:28 Dose: 650 mg Documented by: Atorvastatin Calcium (Atorvastatin 20 Mg Tab) 20 mg PO BEDTIME [facility] Last Admin: 09/11/20 20:02 Dose: 20 mg Documented by: Dextrose/Water (50% Dextrose In Water 50 Ml Syringe) 50 ml IV ASDIRECTED PRN PRN Reason: Hypoglycemia Docusate Sodium (Docusate Sodium 100 Mg Cap) 100 mg PO BID PRN PRN Reason: Constipation Duloxetine HCl (Duloxetine 30 Mg Cap) 30 mg PO DAILY [facility] Last Admin: 09/12/20 08:43 Dose: 30 mg Documented by: Enoxaparin Sodium (Enoxaparin 40 Mg/0.4 Ml Syringe) 40 mg SUBCUT Q24H [facility] Last Admin: 09/11/20 15:45 Dose: 40 mg Documented by: Gabapentin (Gabapentin 300 Mg Cap) 300 mg PO DAILY [facility] Last Admin: 09/12/20 08:43 Dose: 300 mg Documented by: Glucagon (Glucagon,Human Recombinant 1 Mg Vial) 1 mg IM ASDIRECTED PRN PRN Reason: Hypoglycemia Cefazolin Sodium/Dextrose 2 gm (/ Premix) 50 mls @ 100 mls/hr IV Q8H [facility] Last Admin: 09/12/20 10:40 Dose: 100 mls/hr Documented by: Insulin Aspart (Insulin Aspart 100 Units/Ml 3 Ml Pen) 0 unit SUBCUT TIDAC [facility]; Protocol Last Admin: 09/12/20 08:43 Dose: Not Given Documented by: Insulin Human NPH (Insulin Isophane Nph, Human 100 Units/Ml 10 Ml Vial) 20 unit SUBCUT BIDAC [facility] Last Admin: 09/12/20 09:09 Dose: 20 units Documented by: Morphine Sulfate (Morphine 2 Mg/Ml Syringe) 2 mg IVPUSH Q2H PRN PRN Reason: Pain (severe 7-10) Ondansetron HCl (Ondansetron 4 Mg/2 Ml Sdv) 4 mg IVPUSH Q4H PRN PRN Reason: Nausea Oxycodone HCl (Oxycodone 5 Mg Tab) 5 mg PO Q4H PRN PRN Reason: Pain (moderate 4-6) Last Admin: 09/09/20 09:39 Dose: 5 mg Documented by: Sodium Chloride (Sodium Chloride 0.9% 2.5 Ml Syringe) 2.5 ml FLUSH ASDIRECTED PRN PRN Reason: Keep Vein Open Discontinued Medications Bacitracin (Bacitracin Oint 28.35 Gm Tube) 1 gm TOP ONETIME ONE Stop: 09/10/20 12:41 Last Admin: 09/10/20 12:58 Dose: 1 applicful Documented by: Bupivacaine HCl (Bupivacaine 0.5% 10 Ml Sdv) Confirm Administered Dose 10 ml .ROUTE .STK-MED ONE Stop: 09/08/20 16:48 Famotidine (Famotidine 20 Mg/2 Ml Sdv) 40 mg IVPUSH ONETIME ONE Stop: 09/08/20 14:04 Last Admin: 09/08/20 14:25 Dose: 40 mg Documented by: Fentanyl (Fentanyl 100 Mcg/2 Ml Sdv) Confirm Administered Dose 100 mcg .ROUTE .STK-MED ONE Stop: 09/08/20 17:33 Gadobenate Dimeglumine (Gadobenate Dimeglumine 529 Mg/Ml 20 Ml Sdv) 20 ml IVPUSH ONETIME STA Stop: 09/08/20 07:38 Last Admin: 09/08/20 07:39 Dose: 20 ml Documented by: Gadobenate Dimeglumine (Gadobenate Dimeglumine 529 Mg/Ml 20 Ml Sdv) 20 ml IVPUSH ONETIME STA Stop: 09/12/20 07:26 Last Admin: 09/12/20 07:27 Dose: 20 ml Documented by: Sodium Chloride (Normal Saline) 1,000 mls @ 999 mls/hr IV .Bolus ONE Stop: 09/07/20 12:43 Last Admin: 09/07/20 12:25 Dose: 999 mls/hr Documented by: Vancomycin HCl 1,500 mg/ (Sodium Chloride) 100 mls @ 100 mls/hr IV ONETIME ONE Stop: 09/07/20 12:42 Last Admin: 09/07/20 13:22 Dose: Not Given Documented by: Piperacillin Sod/Tazobactam (Sod 3.375 gm/ Sodium Chloride) 50 mls @ 100 mls/hr IV ONETIME ONE Stop: 09/07/20 12:12 Last Admin: 09/07/20 12:27 Dose: 100 mls/hr Documented by: Magnesium Sulfate 2 gm/ Premix 50 mls @ 50 mls/hr IV ONETIME ONE Stop: 09/07/20 13:51 Last Admin: 09/07/20 14:00 Dose: 50 mls/hr Documented by: Vancomycin HCl 1.5 gm/ Premix 300 mls @ 200 mls/hr IV ONETIME ONE Stop: 09/07/20 14:50 Last Admin: 09/07/20 14:00 Dose: 200 mls/hr Documented by: Sodium Chloride (Normal Saline) 1,000 mls @ 125 mls/hr IV Q8H [facility] Last Admin: 09/09/20 13:43 Dose: Not Given Documented by: Piperacillin Sod/Tazobactam (Sod 4.5 gm/ Sodium Chloride) 100 mls @ 100 mls/hr IV Q8H [facility] Last Admin: 09/08/20 04:29 Dose: 100 mls/hr Documented by: Vancomycin HCl 1.5 gm/ Premix 300 mls @ 200 mls/hr IV Q12H [facility] Stop: 09/09/20 16:00 Last Admin: 09/09/20 14:20 Dose: 200 mls/hr Documented by: Piperacillin Sod/Tazobactam (Sod 4.5 gm/ Sodium Chloride) 100 mls @ 100 mls/hr IV Q6H [facility] Last Admin: 09/10/20 09:39 Dose: 100 mls/hr Documented by: Vancomycin HCl 1.5 gm/ Premix 300 mls @ 200 mls/hr IV Q8H [facility] Last Admin: 09/10/20 05:09 Dose: 200 mls/hr Documented by: Magnesium Sulfate (Magnesium Sulfate In Water 2 Gm/50 Ml) 2 gm in 50 mls @ 50 mls/hr IV ONETIME ONE Stop: 09/10/20 11:59 Last Admin: 09/10/20 12:59 Dose: 50 mls/hr Documented by: Magnesium Sulfate (Magnesium Sulfate In Water 2 Gm/50 Ml) 2 gm in 50 mls @ 50 mls/hr IV ONETIME ONE Stop: 09/11/20 11:44 Last Admin: 09/11/20 11:41 Dose: 50 mls/hr Documented by: Magnesium Sulfate (Magnesium Sulfate In Water 2 Gm/50 Ml) 2 gm in 50 mls @ 50 mls/hr IV ONETIME ONE Stop: 09/12/20 09:28 Last Admin: 09/12/20 09:27 Dose: 50 mls/hr Documented by: Lidocaine HCl (Lidocaine 1% 20 Ml Mdv) Confirm Administered Dose 20 ml .ROUTE .STK-MED ONE Stop: 09/08/20 16:48 Metoclopramide HCl (Metoclopramide 10 Mg/2 Ml Sdv) 10 mg IVPUSH ONETIME ONE Stop: 09/08/20 14:06 Last Admin: 09/08/20 14:25 Dose: 10 mg Documented by: Midazolam HCl (Midazolam 1 Mg/Ml 2 Ml Sdv) Confirm Administered Dose 2 mg .ROUTE .STK-MED ONE Stop: 09/08/20 17:33 Ondansetron HCl (Ondansetron 4 Mg/2 Ml Sdv) Confirm Administered Dose 4 mg .ROUTE .STK-MED ONE Stop: 09/07/20 13:59 Last Admin: 09/07/20 14:03 Dose: Not Given Documented by: Ondansetron HCl (Ondansetron 4 Mg/2 Ml Sdv) 4 mg IVPUSH ONETIME ONE Stop: 09/07/20 14:01 Last Admin: 09/07/20 14:03 Dose: 4 mg Documented by: Oxycodone/Acetaminophen (Acetaminophen/Oxycodone 325-5 Mg Tab) 2 tab PO ONETIME ONE Stop: 09/07/20 11:44 Last Admin: 09/07/20 12:25 Dose: 2 tab Documented by: Sodium Chloride (Sodium Chloride 0.9% 10 Ml Syringe) 10 ml FLUSH ASDIRECTED PRN PRN Reason: Keep Vein Open Last Admin: 09/07/20 12:27 Dose: 10 ml Documented by: Sodium Chloride (Sodium Chloride 0.9% 2.5 Ml Syringe) 2.5 ml FLUSH ASDIRECTED PRN PRN Reason: Keep Vein Open Last Admin: 09/07/20 12:27 Dose: 2.5 ml Documented by: Vancomycin HCl (Pharmacy To Dose - Vancomycin) 1 dose .XX ASDIRECTED МАРИНА - Exam Quality Assessment: DVT Prophylaxis. No: Supplemental Oxygen General: Alert, Oriented, Cooperative, No Acute Distress Lungs: Clear to Auscultation, Normal Respiratory Effort Cardiovascular: Regular Rate, Regular Rhythm GI/Abdominal Exam: Normal Bowel Sounds, Soft, Non-Tender Extremities: Normal Inspection, Normal Range of Motion, Non-Tender, No Pedal Edema Peripheral Pulses: 2+: Posterior Tibial (L), Posterior Tibial (R), Dorsalis Pedis (L), Dorsalis Pedis (R) Skin: Warm, Dry. No: Intact Wound/Incisions: Drainage (Mild to scant purulent drainage noted on packing. Serosanguineous drainage to other dressing that has seeped through somewhat.), Erythema Improving Neurological: No New Focal Deficit Psy/Mental Status: Alert, Normal Affect, Normal Mood - Patient Data Lab Results Last 24 hrs: Laboratory Results - last 24 hr 09/11/20 09/11/20 09/12/20 Range/Units 11:38 17:27 05:33 WBC 8.80 (4.0-11.0) K/uL RBC 4.08 L (4.30-5.90) M/uL Hgb 12.7 (12.0-16.0) g/dL Hct 37.6 (36.0-46.0) % MCV 92.2 (80.0-98.0) fL MCH 31.1 (27.0-32.0) pg MCHC 33.8 (31.0-37.0) g/dL RDW Std Deviation 40.2 (28.0-62.0) fl RDW Coeff of Olimpia 12 (11.0-15.0) % Plt Count 342 (150-400) K/uL MPV 10.10 (7.40-12.00) fL Neut % (Auto) 51.5 (48.0-80.0) % Lymph % (Auto) 34.7 (16.0-40.0) % [place] % (Auto) 9.4 (0.0-15.0) % Eos % (Auto) 4.1 (0.0-7.0) % Baso % (Auto) 0.3 (0.0-1.5) % Neut # (Auto) 4.5 (1.4-5.7) K/uL Lymph # (Auto) 3.1 H (0.6-2.4) K/uL [place] # (Auto) 0.8 (0.0-0.8) K/uL Eos # (Auto) 0.4 (0.0-0.7) K/uL Baso # (Auto) 0.0 (0.0-0.1) K/uL Nucleated RBC % 0.0 /100WBC Nucleated RBCs # 0 K/uL Sodium (136-145) mmol/L Potassium (3.5-5.1) mmol/L Chloride (98-107) mmol/L Carbon Dioxide (21.0-32.0) mmol/L BUN (7.0-18.0) mg/dL Creatinine (0.6-1.0) mg/dL Est Cr Clr Drug Dosing mL/min Estimated GFR (MDRD) ml/min Glucose (74-106) mg/dL POC Glucose 192 H 164 H (60-110) mg/dL Calcium (8.5-10.1) mg/dL Phosphorus (2.6-4.7) mg/dL Magnesium (1.8-2.4) mg/dL 09/12/20 09/12/20 Range/Units 05:33 08:34 WBC (4.0-11.0) K/uL RBC (4.30-5.90) M/uL Hgb (12.0-16.0) g/dL Hct (36.0-46.0) % MCV (80.0-98.0) fL MCH (27.0-32.0) pg MCHC (31.0-37.0) g/dL RDW Std Deviation (28.0-62.0) fl RDW Coeff of Olimpia (11.0-15.0) % Plt Count (150-400) K/uL MPV (7.40-12.00) fL Neut % (Auto) (48.0-80.0) % Lymph % (Auto) (16.0-40.0) % [place] % (Auto) (0.0-15.0) % Eos % (Auto) (0.0-7.0) % Baso % (Auto) (0.0-1.5) % Neut # (Auto) (1.4-5.7) K/uL Lymph # (Auto) (0.6-2.4) K/uL [place] # (Auto) (0.0-0.8) K/uL Eos # (Auto) (0.0-0.7) K/uL Baso # (Auto) (0.0-0.1) K/uL Nucleated RBC % /100WBC Nucleated RBCs # K/uL Sodium 140 (136-145) mmol/L Potassium 3.7 (3.5-5.1) mmol/L Chloride 103 (98-107) mmol/L Carbon Dioxide 29.6 (21.0-32.0) mmol/L BUN 13 (7.0-18.0) mg/dL Creatinine 0.8 (0.6-1.0) mg/dL Est Cr Clr Drug Dosing 70.66 mL/min Estimated GFR (MDRD) > 60.0 ml/min Glucose 169 H (74-106) mg/dL POC Glucose 144 H (60-110) mg/dL Calcium 8.9 (8.5-10.1) mg/dL Phosphorus 4.1 (2.6-4.7) mg/dL Magnesium 1.6 L (1.8-2.4) mg/dL Result Diagrams: 09/12/20 05:33 09/12/20 05:33 Kofi Results Last 24 hrs: Microbiology 09/07/20 12:20 Aerobic Blood Culture - Preliminary Blood - Venous - Lab Draw NO GROWTH AFTER 4 DAYS Anaerobic Blood Culture - Preliminary NO GROWTH AFTER 4 DAYS 09/07/20 12:10 Aerobic Blood Culture - Preliminary Blood - Venous NO GROWTH AFTER 4 DAYS Anaerobic Blood Culture - Preliminary NO GROWTH AFTER 4 DAYS Sepsis Event Note - Evaluation Sepsis Screening Result: No Definite Risk - Focused Exam Vital Signs: Vital Signs Temp Pulse Resp BP Pulse Ox 09/12/20 08:45 97.2 F 71 17 142/80 H 97 09/12/20 03:12 97.7 F 70 18 149/84 H 94 L - Problem List & Annotations (1) Obesity SNOMED Code(s): 073206361, 080380360 Code(s): E66.9 - OBESITY, UNSPECIFIED Status: Chronic Current Visit: Yes (2) Neuropathy SNOMED Code(s): 823990453 Code(s): G62.9 - POLYNEUROPATHY, UNSPECIFIED Status: Chronic Current Visit: No (3) Hypertension SNOMED Code(s): 99941610 Code(s): I10 - ESSENTIAL (PRIMARY) HYPERTENSION Status: Chronic Current Visit: No (4) Diabetic ulcer of foot associated with diabetes mellitus due to underlying condition, limited to breakdown of skin SNOMED Code(s): 827858283, 998105310 Code(s): E08.621 - DIABETES MELLITUS DUE TO UNDERLYING CONDITION W FOOT ULCER; L97.501 - NON-PRS CHR ULCER OTH PRT UNSP FOOT LIMITED TO BRKDWN SKIN Status: Acute Current Visit: Yes Qualifiers: Diabetic foot ulcer location: unspecified part of foot Laterality: right Qualified Code(s): E08.621 - Diabetes mellitus due to underlying condition with foot ulcer; L97.511 - Non-pressure chronic ulcer of other part of right foot limited to breakdown of skin (5) Hyperlipemia SNOMED Code(s): 93300198 Code(s): E78.5 - HYPERLIPIDEMIA, UNSPECIFIED Status: Chronic Current Visit: No (6) Hypomagnesemia SNOMED Code(s): 768647563 Code(s): E83.42 - HYPOMAGNESEMIA Status: Acute Current Visit: Yes - Problem List Review Problem List Initiated/Reviewed/Updated: Yes - My Orders Last 24 Hours: My Active Orders 09/12/20 11:08 PT Evaluation and Treatment [CONS] Routine - Plan Plan:: This 55-year-old female admitted with cellulitis and right foot diabetic ulcer. 1. Cellulitis/right foot diabetic ulcer -Cultures are growing MSSA , anaerobic culture growing potential organism. Will stop Cefazolin. Add Zosyn 4.5 gm every 6 hours. Pending cultures. -MRI repeat shows progression bone marrow edema. questionable osteo and/or septic arthritis. Will set up for PICC line as outpatient and plan for care home IV antibiotics. patient is aware and agreeable with plan. -Dr. Pete on consult, appreciate his recommendations. Updated with above information - Continue wound care per Dr Pete instructions. 2. DM type II, uncontrolled -Blood sugar checks 3 times daily before meals and as needed -NovoLog sliding scale insulin with meals -Continue Novolin H 20 units twice daily -ADA diet 3. Hypertension/HLD -Monitor blood pressures we will hold lisinopril due to softer blood pressure on admission -Continue statin 4. Hypomagnesemia: - repleted, recheck in AM VTE prophylaxis: Lovenox CODE STATUS: Full code Dispo: Discharge pending anaerobic cultures.
[2020-09-12] MEDS: Piperacillin/Tazobactam 4.5 GM in Sodium Chloride 0.9% 100 ML IV SCH ×3 (12:53→23:27)
[2020-09-12] MEDS: Enoxaparin 40 MG/0.4 ML Syringe SUBCUT SCH (16:24)
[2020-09-12] MEDS: atorvaSTATin 20 MG Tab PO SCH (20:47)
[2020-09-13] MEDS: Acetaminophen 325 MG Tab PO PRN ×2 (04:07→10:22)
[2020-09-13 06:02] LABS: BLOOD UREA NITROGEN,BUN 13 mg/dL (7.0-18.0); CARBON DIOXIDE,CO2 28.1 mmol/L (21.0-32.0); CHLORIDE,CL 102 mmol/L (98-107); GLUCOSE RANDOM 167 mg/dL (74-106); POTASSIUM,K 3.7 mmol/L (3.5-5.1); SODIUM,NA 139 mmol/L (136-145)
[2020-09-13] MEDS: Piperacillin/Tazobactam 4.5 GM in Sodium Chloride 0.9% 100 ML IV SCH ×3 (06:42→17:54)
[2020-09-13] MEDS: Insulin Isophane NPH, Human 100 Units/ML 10 ML Vial SUBCUT SCH ×2 (07:49→18:10)
[2020-09-13] MEDS: Insulin Aspart 100 Units/ML 3 ML Pen SUBCUT SCH ×3 (07:52→18:10)
--- NOTE | 2020-09-13 08:21 | PCM.PN ---
- General Info Date of Service: 09/13/20 Admission Dx/Problem (Free Text): Admission Diagnosis/Problem Admission Diagnosis/Problem Diabetic foot ulcer Subjective Update: Reports she is feeling more bloated today and has a gas bubble. Patient is continuously burping. Denies any chest pain or shortness of breath. Drainage to right lower extremity has improved. Functional Status: Reports: Pain Controlled, Tolerating Diet, Ambulating - Review of Systems General: Reports: No Symptoms. Denies: Weakness, Fatigue HEENT: Reports: No Symptoms. Denies: Sore Throat Pulmonary: Reports: No Symptoms. Denies: Shortness of Breath Cardiovascular: Denies: Chest Pain Gastrointestinal: Reports: Other (Bloated belching) Genitourinary: Reports: No Symptoms. Denies: Dysuria, Frequency Musculoskeletal: Reports: No Symptoms Skin: Reports: No Symptoms Neurological: Reports: No Symptoms Psychiatric: Reports: No Symptoms - Patient Data Vitals - Most Recent: Last Vital Signs Temp 97.3 F 09/13/20 04:00 Pulse 71 09/13/20 04:00 Resp 18 09/13/20 04:00 BP 149/85 H 09/13/20 04:00 Pulse Ox 94 L 09/13/20 04:00 Weight - Most Recent: 102.965 kg I&O - Last 24 Hours: Intake & Output 09/12/20 09/13/20 09/13/20 22:59 06:59 14:59 Intake Total 920 940 Output Total 1100 1550 Balance -180 -610 Lab Results Last 24 Hours: Laboratory Results - last 24 hr 09/12/20 09/12/20 09/12/20 Range/Units 08:34 11:26 17:20 WBC (4.0-11.0) K/uL RBC (4.30-5.90) M/uL Hgb (12.0-16.0) g/dL Hct (36.0-46.0) % MCV (80.0-98.0) fL MCH (27.0-32.0) pg MCHC (31.0-37.0) g/dL RDW Std Deviation (28.0-62.0) fl RDW Coeff of Olimpia (11.0-15.0) % Plt Count (150-400) K/uL MPV (7.40-12.00) fL Neut % (Auto) (48.0-80.0) % Lymph % (Auto) (16.0-40.0) % Rhea % (Auto) (0.0-15.0) % Eos % (Auto) (0.0-7.0) % Baso % (Auto) (0.0-1.5) % Neut # (Auto) (1.4-5.7) K/uL Lymph # (Auto) (0.6-2.4) K/uL Rhea # (Auto) (0.0-0.8) K/uL Eos # (Auto) (0.0-0.7) K/uL Baso # (Auto) (0.0-0.1) K/uL Nucleated RBC % /100WBC Nucleated RBCs # K/uL Sodium (136-145) mmol/L Potassium (3.5-5.1) mmol/L Chloride (98-107) mmol/L Carbon Dioxide (21.0-32.0) mmol/L BUN (7.0-18.0) mg/dL Creatinine (0.6-1.0) mg/dL Est Cr Clr Drug Dosing mL/min Estimated GFR (MDRD) ml/min Glucose (74-106) mg/dL POC Glucose 144 H 230 H 192 H (60-110) mg/dL Calcium (8.5-10.1) mg/dL Magnesium (1.8-2.4) mg/dL 09/13/20 09/13/20 09/13/20 Range/Units 05:02 05:02 06:41 WBC 10.42 (4.0-11.0) K/uL RBC 4.19 L (4.30-5.90) M/uL Hgb 13.0 (12.0-16.0) g/dL Hct 38.4 (36.0-46.0) % MCV 91.6 (80.0-98.0) fL MCH 31.0 (27.0-32.0) pg MCHC 33.9 (31.0-37.0) g/dL RDW Std Deviation 40.6 (28.0-62.0) fl RDW Coeff of Olimpia 12 (11.0-15.0) % Plt Count 371 (150-400) K/uL MPV 10.10 (7.40-12.00) fL Neut % (Auto) 63.1 (48.0-80.0) % Lymph % (Auto) 26.0 (16.0-40.0) % Rhea % (Auto) 7.3 (0.0-15.0) % Eos % (Auto) 3.4 (0.0-7.0) % Baso % (Auto) 0.2 (0.0-1.5) % Neut # (Auto) 6.6 H (1.4-5.7) K/uL Lymph # (Auto) 2.7 H (0.6-2.4) K/uL Rhea # (Auto) 0.8 (0.0-0.8) K/uL Eos # (Auto) 0.4 (0.0-0.7) K/uL Baso # (Auto) 0.0 (0.0-0.1) K/uL Nucleated RBC % 0.0 /100WBC Nucleated RBCs # 0 K/uL Sodium 139 (136-145) mmol/L Potassium 3.7 (3.5-5.1) mmol/L Chloride 102 (98-107) mmol/L Carbon Dioxide 28.1 (21.0-32.0) mmol/L BUN 13 (7.0-18.0) mg/dL Creatinine 0.8 (0.6-1.0) mg/dL Est Cr Clr Drug Dosing 70.66 mL/min Estimated GFR (MDRD) > 60.0 ml/min Glucose 167 H (74-106) mg/dL POC Glucose 142 H (60-110) mg/dL Calcium 9.1 (8.5-10.1) mg/dL Magnesium 1.5 L (1.8-2.4) mg/dL Kofi Results Last 24 Hours: Microbiology 09/07/20 12:20 Aerobic Blood Culture - Final Blood - Venous - Lab Draw NO GROWTH AFTER 5 DAYS Anaerobic Blood Culture - Final NO GROWTH AFTER 5 DAYS 09/07/20 12:10 Aerobic Blood Culture - Final Blood - Venous NO GROWTH AFTER 5 DAYS Anaerobic Blood Culture - Final NO GROWTH AFTER 5 DAYS 09/08/20 17:59 Anaerobic Culture - Preliminary Wound - Foot, Right Med Orders - Current: Current Medications Acetaminophen (Acetaminophen 325 Mg Tab) 650 mg PO Q4H PRN PRN Reason: Pain (Mild 1-3)/fever Last Admin: 09/13/20 04:07 Dose: 650 mg Documented by: Atorvastatin Calcium (Atorvastatin 20 Mg Tab) 20 mg PO BEDTIME [facility] Last Admin: 09/12/20 20:47 Dose: 20 mg Documented by: Dextrose/Water (50% Dextrose In Water 50 Ml Syringe) 50 ml IV ASDIRECTED PRN PRN Reason: Hypoglycemia Docusate Sodium (Docusate Sodium 100 Mg Cap) 100 mg PO BID PRN PRN Reason: Constipation Duloxetine HCl (Duloxetine 30 Mg Cap) 30 mg PO DAILY [facility] Last Admin: 09/12/20 08:43 Dose: 30 mg Documented by: Enoxaparin Sodium (Enoxaparin 40 Mg/0.4 Ml Syringe) 40 mg SUBCUT Q24H [facility] Last Admin: 09/12/20 16:24 Dose: 40 mg Documented by: Gabapentin (Gabapentin 300 Mg Cap) 300 mg PO DAILY [facility] Last Admin: 09/12/20 08:43 Dose: 300 mg Documented by: Glucagon (Glucagon,Human Recombinant 1 Mg Vial) 1 mg IM ASDIRECTED PRN PRN Reason: Hypoglycemia Piperacillin Sod/Tazobactam (Sod 4.5 gm/ Sodium Chloride) 100 mls @ 100 mls/hr IV Q6H [facility] Last Admin: 09/13/20 06:42 Dose: 100 mls/hr Documented by: Magnesium Sulfate (Magnesium Sulfate In Water 4 Gm/100 Ml) 4 gm in 100 mls @ 50 mls/hr IV ONETIME ONE Stop: 09/13/20 10:18 Insulin Aspart (Insulin Aspart 100 Units/Ml 3 Ml Pen) 0 unit SUBCUT TIDAC [facility]; Protocol Last Admin: 09/13/20 07:52 Dose: Not Given Documented by: Insulin Human NPH (Insulin Isophane Nph, Human 100 Units/Ml 10 Ml Vial) 20 unit SUBCUT BIDAC [facility] Last Admin: 09/13/20 07:49 Dose: 20 units Documented by: Morphine Sulfate (Morphine 2 Mg/Ml Syringe) 2 mg IVPUSH Q2H PRN PRN Reason: Pain (severe 7-10) Ondansetron HCl (Ondansetron 4 Mg/2 Ml Sdv) 4 mg IVPUSH Q4H PRN PRN Reason: Nausea Oxycodone HCl (Oxycodone 5 Mg Tab) 5 mg PO Q4H PRN PRN Reason: Pain (moderate 4-6) Last Admin: 09/09/20 09:39 Dose: 5 mg Documented by: Sodium Chloride (Sodium Chloride 0.9% 2.5 Ml Syringe) 2.5 ml FLUSH ASDIRECTED PRN PRN Reason: Keep Vein Open Discontinued Medications Bacitracin (Bacitracin Oint 28.35 Gm Tube) 1 gm TOP ONETIME ONE Stop: 09/10/20 12:41 Last Admin: 09/10/20 12:58 Dose: 1 applicful Documented by: Bupivacaine HCl (Bupivacaine 0.5% 10 Ml Sdv) Confirm Administered Dose 10 ml .ROUTE .STK-MED ONE Stop: 09/08/20 16:48 Famotidine (Famotidine 20 Mg/2 Ml Sdv) 40 mg IVPUSH ONETIME ONE Stop: 09/08/20 14:04 Last Admin: 09/08/20 14:25 Dose: 40 mg Documented by: Fentanyl (Fentanyl 100 Mcg/2 Ml Sdv) Confirm Administered Dose 100 mcg .ROUTE .STK-MED ONE Stop: 09/08/20 17:33 Gadobenate Dimeglumine (Gadobenate Dimeglumine 529 Mg/Ml 20 Ml Sdv) 20 ml IVPUSH ONETIME STA Stop: 09/08/20 07:38 Last Admin: 09/08/20 07:39 Dose: 20 ml Documented by: Gadobenate Dimeglumine (Gadobenate Dimeglumine 529 Mg/Ml 20 Ml Sdv) 20 ml IVPUSH ONETIME STA Stop: 09/12/20 07:26 Last Admin: 09/12/20 07:27 Dose: 20 ml Documented by: Sodium Chloride (Normal Saline) 1,000 mls @ 999 mls/hr IV .Bolus ONE Stop: 09/07/20 12:43 Last Admin: 09/07/20 12:25 Dose: 999 mls/hr Documented by: Vancomycin HCl 1,500 mg/ (Sodium Chloride) 100 mls @ 100 mls/hr IV ONETIME ONE Stop: 09/07/20 12:42 Last Admin: 09/07/20 13:22 Dose: Not Given Documented by: Piperacillin Sod/Tazobactam (Sod 3.375 gm/ Sodium Chloride) 50 mls @ 100 mls/hr IV ONETIME ONE Stop: 09/07/20 12:12 Last Admin: 09/07/20 12:27 Dose: 100 mls/hr Documented by: Magnesium Sulfate 2 gm/ Premix 50 mls @ 50 mls/hr IV ONETIME ONE Stop: 09/07/20 13:51 Last Admin: 09/07/20 14:00 Dose: 50 mls/hr Documented by: Vancomycin HCl 1.5 gm/ Premix 300 mls @ 200 mls/hr IV ONETIME ONE Stop: 09/07/20 14:50 Last Admin: 09/07/20 14:00 Dose: 200 mls/hr Documented by: Sodium Chloride (Normal Saline) 1,000 mls @ 125 mls/hr IV Q8H [facility] Last Admin: 09/09/20 13:43 Dose: Not Given Documented by: Piperacillin Sod/Tazobactam (Sod 4.5 gm/ Sodium Chloride) 100 mls @ 100 mls/hr IV Q8H [facility] Last Admin: 09/08/20 04:29 Dose: 100 mls/hr Documented by: Vancomycin HCl 1.5 gm/ Premix 300 mls @ 200 mls/hr IV Q12H [facility] Stop: 09/09/20 16:00 Last Admin: 09/09/20 14:20 Dose: 200 mls/hr Documented by: Piperacillin Sod/Tazobactam (Sod 4.5 gm/ Sodium Chloride) 100 mls @ 100 mls/hr IV Q6H [facility] Last Admin: 09/10/20 09:39 Dose: 100 mls/hr Documented by: Vancomycin HCl 1.5 gm/ Premix 300 mls @ 200 mls/hr IV Q8H [facility] Last Admin: 09/10/20 05:09 Dose: 200 mls/hr Documented by: Magnesium Sulfate (Magnesium Sulfate In Water 2 Gm/50 Ml) 2 gm in 50 mls @ 50 mls/hr IV ONETIME ONE Stop: 09/10/20 11:59 Last Admin: 09/10/20 12:59 Dose: 50 mls/hr Documented by: Cefazolin Sodium/Dextrose 2 gm (/ Premix) 50 mls @ 100 mls/hr IV Q8H [facility] Last Admin: 09/12/20 10:40 Dose: 100 mls/hr Documented by: Magnesium Sulfate (Magnesium Sulfate In Water 2 Gm/50 Ml) 2 gm in 50 mls @ 50 mls/hr IV ONETIME ONE Stop: 09/11/20 11:44 Last Admin: 09/11/20 11:41 Dose: 50 mls/hr Documented by: Magnesium Sulfate (Magnesium Sulfate In Water 2 Gm/50 Ml) 2 gm in 50 mls @ 50 mls/hr IV ONETIME ONE Stop: 09/12/20 09:28 Last Admin: 09/12/20 09:27 Dose: 50 mls/hr Documented by: Lidocaine HCl (Lidocaine 1% 20 Ml Mdv) Confirm Administered Dose 20 ml .ROUTE .STK-MED ONE Stop: 09/08/20 16:48 Metoclopramide HCl (Metoclopramide 10 Mg/2 Ml Sdv) 10 mg IVPUSH ONETIME ONE Stop: 09/08/20 14:06 Last Admin: 09/08/20 14:25 Dose: 10 mg Documented by: Midazolam HCl (Midazolam 1 Mg/Ml 2 Ml Sdv) Confirm Administered Dose 2 mg .ROUTE .STK-MED ONE Stop: 09/08/20 17:33 Ondansetron HCl (Ondansetron 4 Mg/2 Ml Sdv) Confirm Administered Dose 4 mg .ROUTE .STK-MED ONE Stop: 09/07/20 13:59 Last Admin: 09/07/20 14:03 Dose: Not Given Documented by: Ondansetron HCl (Ondansetron 4 Mg/2 Ml Sdv) 4 mg IVPUSH ONETIME ONE Stop: 09/07/20 14:01 Last Admin: 09/07/20 14:03 Dose: 4 mg Documented by: Oxycodone/Acetaminophen (Acetaminophen/Oxycodone 325-5 Mg Tab) 2 tab PO ONETIME ONE Stop: 09/07/20 11:44 Last Admin: 09/07/20 12:25 Dose: 2 tab Documented by: Sodium Chloride (Sodium Chloride 0.9% 10 Ml Syringe) 10 ml FLUSH ASDIRECTED PRN PRN Reason: Keep Vein Open Last Admin: 09/07/20 12:27 Dose: 10 ml Documented by: Sodium Chloride (Sodium Chloride 0.9% 2.5 Ml Syringe) 2.5 ml FLUSH ASDIRECTED PRN PRN Reason: Keep Vein Open Last Admin: 09/07/20 12:27 Dose: 2.5 ml Documented by: Vancomycin HCl (Pharmacy To Dose - Vancomycin) 1 dose .XX ASDIRECTED МАРИНА - Exam General: Alert, Oriented, Cooperative, No Acute Distress Lungs: Clear to Auscultation, Normal Respiratory Effort Cardiovascular: Regular Rate, Regular Rhythm GI/Abdominal Exam: Normal Bowel Sounds, Soft, Non-Tender Extremities: Normal Inspection, Normal Range of Motion, Non-Tender, No Pedal Edema Wound/Incisions: Drainage (Scant drainage on dressings from right foot. Scant amount of purulent drainage noted to packing.), Erythema Improving Neurological: No New Focal Deficit Psy/Mental Status: Alert, Normal Affect, Normal Mood - Patient Data Lab Results Last 24 hrs: Laboratory Results - last 24 hr 09/12/20 09/12/20 09/12/20 Range/Units 08:34 11:26 17:20 WBC (4.0-11.0) K/uL RBC (4.30-5.90) M/uL Hgb (12.0-16.0) g/dL Hct (36.0-46.0) % MCV (80.0-98.0) fL MCH (27.0-32.0) pg MCHC (31.0-37.0) g/dL RDW Std Deviation (28.0-62.0) fl RDW Coeff of Olimpia (11.0-15.0) % Plt Count (150-400) K/uL MPV (7.40-12.00) fL Neut % (Auto) (48.0-80.0) % Lymph % (Auto) (16.0-40.0) % Rhea % (Auto) (0.0-15.0) % Eos % (Auto) (0.0-7.0) % Baso % (Auto) (0.0-1.5) % Neut # (Auto) (1.4-5.7) K/uL Lymph # (Auto) (0.6-2.4) K/uL Rhea # (Auto) (0.0-0.8) K/uL Eos # (Auto) (0.0-0.7) K/uL Baso # (Auto) (0.0-0.1) K/uL Nucleated RBC % /100WBC Nucleated RBCs # K/uL Sodium (136-145) mmol/L Potassium (3.5-5.1) mmol/L Chloride (98-107) mmol/L Carbon Dioxide (21.0-32.0) mmol/L BUN (7.0-18.0) mg/dL Creatinine (0.6-1.0) mg/dL Est Cr Clr Drug Dosing mL/min Estimated GFR (MDRD) ml/min Glucose (74-106) mg/dL POC Glucose 144 H 230 H 192 H (60-110) mg/dL Calcium (8.5-10.1) mg/dL Magnesium (1.8-2.4) mg/dL 09/13/20 09/13/20 09/13/20 Range/Units 05:02 05:02 06:41 WBC 10.42 (4.0-11.0) K/uL RBC 4.19 L (4.30-5.90) M/uL Hgb 13.0 (12.0-16.0) g/dL Hct 38.4 (36.0-46.0) % MCV 91.6 (80.0-98.0) fL MCH 31.0 (27.0-32.0) pg MCHC 33.9 (31.0-37.0) g/dL RDW Std Deviation 40.6 (28.0-62.0) fl RDW Coeff of Olimpia 12 (11.0-15.0) % Plt Count 371 (150-400) K/uL MPV 10.10 (7.40-12.00) fL Neut % (Auto) 63.1 (48.0-80.0) % Lymph % (Auto) 26.0 (16.0-40.0) % Rhea % (Auto) 7.3 (0.0-15.0) % Eos % (Auto) 3.4 (0.0-7.0) % Baso % (Auto) 0.2 (0.0-1.5) % Neut # (Auto) 6.6 H (1.4-5.7) K/uL Lymph # (Auto) 2.7 H (0.6-2.4) K/uL Rhea # (Auto) 0.8 (0.0-0.8) K/uL Eos # (Auto) 0.4 (0.0-0.7) K/uL Baso # (Auto) 0.0 (0.0-0.1) K/uL Nucleated RBC % 0.0 /100WBC Nucleated RBCs # 0 K/uL Sodium 139 (136-145) mmol/L Potassium 3.7 (3.5-5.1) mmol/L Chloride 102 (98-107) mmol/L Carbon Dioxide 28.1 (21.0-32.0) mmol/L BUN 13 (7.0-18.0) mg/dL Creatinine 0.8 (0.6-1.0) mg/dL Est Cr Clr Drug Dosing 70.66 mL/min Estimated GFR (MDRD) > 60.0 ml/min Glucose 167 H (74-106) mg/dL POC Glucose 142 H (60-110) mg/dL Calcium 9.1 (8.5-10.1) mg/dL Magnesium 1.5 L (1.8-2.4) mg/dL Result Diagrams: 09/13/20 05:02 09/13/20 05:02 Kofi Results Last 24 hrs: Microbiology 09/07/20 12:20 Aerobic Blood Culture - Final Blood - Venous - Lab Draw NO GROWTH AFTER 5 DAYS Anaerobic Blood Culture - Final NO GROWTH AFTER 5 DAYS 09/07/20 12:10 Aerobic Blood Culture - Final Blood - Venous NO GROWTH AFTER 5 DAYS Anaerobic Blood Culture - Final NO GROWTH AFTER 5 DAYS 09/08/20 17:59 Anaerobic Culture - Preliminary Wound - Foot, Right Sepsis Event Note - Evaluation Sepsis Screening Result: No Definite Risk - Focused Exam Vital Signs: Vital Signs Temp Pulse Resp BP Pulse Ox 09/13/20 04:00 97.3 F 71 18 149/85 H 94 L 09/12/20 23:34 97.6 F 81 18 150/83 H 94 L - Problem List & Annotations (1) Obesity SNOMED Code(s): 949455029, 042859809 Code(s): E66.9 - OBESITY, UNSPECIFIED Status: Chronic Current Visit: Yes (2) Neuropathy SNOMED Code(s): 268696559 Code(s): G62.9 - POLYNEUROPATHY, UNSPECIFIED Status: Chronic Current Visit: No (3) Hypertension SNOMED Code(s): 04265662 Code(s): I10 - ESSENTIAL (PRIMARY) HYPERTENSION Status: Chronic Current Visit: No (4) Diabetic ulcer of foot associated with diabetes mellitus due to underlying condition, limited to breakdown of skin SNOMED Code(s): 762652957, 720018232 Code(s): E08.621 - DIABETES MELLITUS DUE TO UNDERLYING CONDITION W FOOT ULCER; L97.501 - NON-PRS CHR ULCER OTH PRT UNSP FOOT LIMITED TO BRKDWN SKIN Status: Acute Current Visit: Yes Qualifiers: Diabetic foot ulcer location: unspecified part of foot Laterality: right Qualified Code(s): E08.621 - Diabetes mellitus due to underlying condition with foot ulcer; L97.511 - Non-pressure chronic ulcer of other part of right foot limited to breakdown of skin (5) Hyperlipemia SNOMED Code(s): 84950172 Code(s): E78.5 - HYPERLIPIDEMIA, UNSPECIFIED Status: Chronic Current Visit: No (6) Hypomagnesemia SNOMED Code(s): 478190746 Code(s): E83.42 - HYPOMAGNESEMIA Status: Acute Current Visit: Yes - Problem List Review Problem List Initiated/Reviewed/Updated: Yes - My Orders Last 24 Hours: My Active Orders 09/12/20 11:08 PT Evaluation and Treatment [CONS] Routine 09/12/20 12:15 Piperacillin/Tazobactam [Piperacil-Tazobact] 4.5 gm Sodium Chloride 0.9% [Normal Saline] 100 ml IV Q6H 09/13/20 08:19 Magnesium Sulfate non-OB 4 GM ONETIME Magnesium Sulfate/Water [Magnesium Sulfate in Water 4 GM/100 ML] 4 gm in 100 ml IV ONETIME 09/13/20 09:00 lisinopriL [Prinivil] 20 mg PO BID 09/14/20 05:11 BASIC METABOLIC PANEL,BMP [CHEM] AM CBC WITH AUTO DIFF [HEME] AM MAGNESIUM [CHEM] AM 09/15/20 05:11 BASIC METABOLIC PANEL,BMP [CHEM] AM CBC WITH AUTO DIFF [HEME] AM MAGNESIUM [CHEM] AM 09/16/20 05:11 BASIC METABOLIC PANEL,BMP [CHEM] AM CBC WITH AUTO DIFF [HEME] AM MAGNESIUM [CHEM] AM - Plan Plan:: This 55-year-old female admitted with cellulitis and right foot diabetic ulcer. 1. Cellulitis/right foot diabetic ulcer -Cultures are growing MSSA , anaerobic culture growing potential organism. -Continue Zosyn 4.5 gm every 6 hours. Pending cultures. -MRI repeat shows progression bone marrow edema. questionable osteo and/or septic arthritis. 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 patient is aware and agreeable with plan. -Dr. Pete on consult, appreciate his recommendations. Updated with above information - Continue wound care per Dr Pete instructions. -PICC line is set for Saturday likely discharge Saturday to immediately have PICC line if and when cultures are finalized. 2. DM type II, uncontrolled -Blood sugar checks 3 times daily before meals and as needed -NovoLog sliding scale insulin with meals -Continue Novolin H 20 units twice daily -ADA diet 3. Hypertension/HLD -restart Lisinopril -Continue statin 4. Hypomagnesemia: - repleted with 4 g magnesium IV, recheck in AM VTE prophylaxis: Lovenox CODE STATUS: Full code Dispo: Discharge pending anaerobic cultures. PICC line scheduled for Saturday in [facility].
[2020-09-13] MEDS ORDERED: Magnesium Sulfate/Water 4 GM/100 ML BAG IV ONE (08:30)
[2020-09-13] MEDS: DULoxetine 30 MG Cap PO SCH (08:31)
[2020-09-13] MEDS: Gabapentin 300 MG Cap PO SCH (08:31)
[2020-09-13] MEDS: Lisinopril 10 MG Tab PO SCH ×2 (09:10→21:30)
[2020-09-13] MEDS ORDERED: Pantoprazole 40 MG Tab.CR PO SCH (10:45)
[2020-09-13] MEDS ORDERED: Alum Hydrox/Mag Hydrox/Simeth 15 ML, Lidocaine 2% 5 ML PO ONE ×2 (11:00)
[2020-09-13] MEDS: oxyCODONE 5 MG Tab PO PRN (13:56)
[2020-09-13] MEDS ORDERED: Morphine 2 MG/ML SYRINGE IVPUSH ONE (14:12)
[2020-09-13] MEDS ORDERED: Pantoprazole 40 MG in Sodium Chloride 0.9% 10 ML IV ONE (14:15)
[2020-09-13] MEDS: Morphine 2 MG/ML SYRINGE IVPUSH PRN ×2 (14:18→16:11)
[2020-09-13] MEDS ORDERED: Alum Hydrox/Mag Hydrox/Simeth 15 ML, Metoclopramide 5 MG, Lidocaine 2% 5 ML PO ONE ×3 (14:45)
--- NOTE | 2020-09-13 14:50 | PCM.SN.2 ---
- Free Text/Narrative Note: Nurse notified myself of patient having significant upper back pain, with belching. sharp shooting in nature radiating to her chest. Belching does improve the pain somewhat.This pain came on 1 hour after eating. Never had this pain before. Has tenderness to upper back upon palpation. Worsens with deep breathing. Mild nausea with diaphoresis. GI cocktail given this morning with similar pain with relief. EKG reveals RBBB and sinus tachycardia rate 108. No ST or T wave inversions. Similar to admission EKG. Troponin negative. CTA chest obtaed and ruled out PE and dissection. No abnormalities noted. Will give another GI cocktail along with IV Protonix and Morphine. Will trend troponins and monitor on Telemetry overnight. Dr Arteaga updated on above information and plan.
[2020-09-13] MEDS: Enoxaparin 40 MG/0.4 ML Syringe SUBCUT SCH (15:18)
--- NOTE | 2020-09-13 15:51 | CT ---
INDICATION: Chest pain TECHNIQUE: Contrast enhanced axial CT imaging through the chest, optimized for assessment of the pulmonary arterial tree. 50 mL Isovue 370 contrast agent was administered intravenously. Sagittal and coronal reconstructions are provided. COMPARISON: None FINDINGS: There is adequate opacification of the pulmonary arterial tree without evidence of thromboembolism. The main pulmonary artery is nonenlarged. The heart is normal in size. There is no pericardial effusion. The thoracic aorta is normal in caliber. There is no mediastinal lymphadenopathy. There is mild bibasilar atelectasis. The lungs are otherwise clear. There is no pleural effusion or pneumothorax. The thoracic osseous structures are unremarkable. No significant abnormality is demonstrated in the visualized upper abdomen. IMPRESSION: No evidence of pulmonary thromboembolism. Please note that all CT scans at this facility use dose modulation, iterative reconstruction, and/or weight-based dosing when appropriate to reduce radiation dose to as low as reasonably achievable. Dictated by Alphonse Nicole MD @ Sep 13 2020 3:41PM Signed by Dr. Alphonse Nicole @ Sep 13 2020 3:50PM
[2020-09-13] MEDS ORDERED: Iopamidol 755 MG/ML 500 ML Multipack Bottle IVPUSH STA (17:58)
--- NOTE | 2020-09-13 21:17 | PCM.CONSN ---
- General Info Date of Service: 09/13/20 Admission Dx/Problem (Free Text): Admission Diagnosis/Problem Admission Diagnosis/Problem Diabetic foot ulcer Subjective Update: Reports she is feeling well now, was burping earlier, but is breathing normally and denies any pain at this time. Functional Status: Reports: Pain Controlled - Review of Systems Musculoskeletal: Reports: No Symptoms - Patient Data Vitals - Most Recent: Last Vital Signs Temp 36.4 C 09/13/20 16:55 Pulse 98 09/13/20 16:55 Resp 16 09/13/20 16:55 BP 115/63 09/13/20 16:55 Pulse Ox 93 L 09/13/20 16:55 Weight - Most Recent: 102.965 kg I&O - Last 24 Hours: Intake & Output 09/13/20 09/13/20 09/13/20 06:59 14:59 22:59 Intake Total 940 2160 Output Total 1550 1300 Balance -610 860 Lab Results Last 24 Hours: Laboratory Results - last 24 hr 09/13/20 09/13/20 09/13/20 Range/Units 05:02 05:02 06:41 WBC 10.42 (4.0-11.0) K/uL RBC 4.19 L (4.30-5.90) M/uL Hgb 13.0 (12.0-16.0) g/dL Hct 38.4 (36.0-46.0) % MCV 91.6 (80.0-98.0) fL MCH 31.0 (27.0-32.0) pg MCHC 33.9 (31.0-37.0) g/dL RDW Std Deviation 40.6 (28.0-62.0) fl RDW Coeff of Olimpia 12 (11.0-15.0) % Plt Count 371 (150-400) K/uL MPV 10.10 (7.40-12.00) fL Neut % (Auto) 63.1 (48.0-80.0) % Lymph % (Auto) 26.0 (16.0-40.0) % Hemphill % (Auto) 7.3 (0.0-15.0) % Eos % (Auto) 3.4 (0.0-7.0) % Baso % (Auto) 0.2 (0.0-1.5) % Neut # (Auto) 6.6 H (1.4-5.7) K/uL Lymph # (Auto) 2.7 H (0.6-2.4) K/uL Hemphill # (Auto) 0.8 (0.0-0.8) K/uL Eos # (Auto) 0.4 (0.0-0.7) K/uL Baso # (Auto) 0.0 (0.0-0.1) K/uL Nucleated RBC % 0.0 /100WBC Nucleated RBCs # 0 K/uL Sodium 139 (136-145) mmol/L Potassium 3.7 (3.5-5.1) mmol/L Chloride 102 (98-107) mmol/L Carbon Dioxide 28.1 (21.0-32.0) mmol/L BUN 13 (7.0-18.0) mg/dL Creatinine 0.8 (0.6-1.0) mg/dL Est Cr Clr Drug Dosing 70.66 mL/min Estimated GFR (MDRD) > 60.0 ml/min Glucose 167 H (74-106) mg/dL POC Glucose 142 H (60-110) mg/dL Calcium 9.1 (8.5-10.1) mg/dL Magnesium 1.5 L (1.8-2.4) mg/dL Troponin I (0.000-0.056) ng/mL 09/13/20 09/13/20 09/13/20 Range/Units 11:32 13:04 14:12 WBC (4.0-11.0) K/uL RBC (4.30-5.90) M/uL Hgb (12.0-16.0) g/dL Hct (36.0-46.0) % MCV (80.0-98.0) fL MCH (27.0-32.0) pg MCHC (31.0-37.0) g/dL RDW Std Deviation (28.0-62.0) fl RDW Coeff of Olimpia (11.0-15.0) % Plt Count (150-400) K/uL MPV (7.40-12.00) fL Neut % (Auto) (48.0-80.0) % Lymph % (Auto) (16.0-40.0) % Hemphill % (Auto) (0.0-15.0) % Eos % (Auto) (0.0-7.0) % Baso % (Auto) (0.0-1.5) % Neut # (Auto) (1.4-5.7) K/uL Lymph # (Auto) (0.6-2.4) K/uL Hemphill # (Auto) (0.0-0.8) K/uL Eos # (Auto) (0.0-0.7) K/uL Baso # (Auto) (0.0-0.1) K/uL Nucleated RBC % /100WBC Nucleated RBCs # K/uL Sodium (136-145) mmol/L Potassium (3.5-5.1) mmol/L Chloride (98-107) mmol/L Carbon Dioxide (21.0-32.0) mmol/L BUN (7.0-18.0) mg/dL Creatinine (0.6-1.0) mg/dL Est Cr Clr Drug Dosing mL/min Estimated GFR (MDRD) ml/min Glucose (74-106) mg/dL POC Glucose 238 H 205 H (60-110) mg/dL Calcium (8.5-10.1) mg/dL Magnesium (1.8-2.4) mg/dL Troponin I < 0.050 (0.000-0.056) ng/mL 09/13/20 09/13/20 09/13/20 Range/Units 17:45 17:47 20:35 WBC (4.0-11.0) K/uL RBC (4.30-5.90) M/uL Hgb (12.0-16.0) g/dL Hct (36.0-46.0) % MCV (80.0-98.0) fL MCH (27.0-32.0) pg MCHC (31.0-37.0) g/dL RDW Std Deviation (28.0-62.0) fl RDW Coeff of Olimpia (11.0-15.0) % Plt Count (150-400) K/uL MPV (7.40-12.00) fL Neut % (Auto) (48.0-80.0) % Lymph % (Auto) (16.0-40.0) % Hemphill % (Auto) (0.0-15.0) % Eos % (Auto) (0.0-7.0) % Baso % (Auto) (0.0-1.5) % Neut # (Auto) (1.4-5.7) K/uL Lymph # (Auto) (0.6-2.4) K/uL Hem[place]ill # (Auto) (0.0-0.8) K/uL Eos # (Auto) (0.0-0.7) K/uL Baso # (Auto) (0.0-0.1) K/uL Nucleated RBC % /100WBC Nucleated RBCs # K/uL Sodium (136-145) mmol/L Potassium (3.5-5.1) mmol/L Chloride (98-107) mmol/L Carbon Dioxide (21.0-32.0) mmol/L BUN (7.0-18.0) mg/dL Creatinine (0.6-1.0) mg/dL Est Cr Clr Drug Dosing mL/min Estimated GFR (MDRD) ml/min Glucose (74-106) mg/dL POC Glucose 280 H (60-110) mg/dL Calcium (8.5-10.1) mg/dL Magnesium (1.8-2.4) mg/dL Troponin I < 0.050 < 0.050 (0.000-0.056) ng/mL Med Orders - Current: Current Medications Acetaminophen (Acetaminophen 325 Mg Tab) 650 mg PO Q4H PRN PRN Reason: Pain (Mild 1-3)/fever Last Admin: 09/13/20 10:22 Dose: 650 mg Documented by: Atorvastatin Calcium (Atorvastatin 20 Mg Tab) 20 mg PO BEDTIME [facility] Last Admin: 09/12/20 20:47 Dose: 20 mg Documented by: Dextrose/Water (50% Dextrose In Water 50 Ml Syringe) 50 ml IV ASDIRECTED PRN PRN Reason: Hypoglycemia Docusate Sodium (Docusate Sodium 100 Mg Cap) 100 mg PO BID PRN PRN Reason: Constipation Duloxetine HCl (Duloxetine 30 Mg Cap) 30 mg PO DAILY [facility] Last Admin: 09/13/20 08:31 Dose: 30 mg Documented by: Enoxaparin Sodium (Enoxaparin 40 Mg/0.4 Ml Syringe) 40 mg SUBCUT Q24H [facility] Last Admin: 09/13/20 15:18 Dose: 40 mg Documented by: Gabapentin (Gabapentin 300 Mg Cap) 300 mg PO DAILY [facility] Last Admin: 09/13/20 08:31 Dose: 300 mg Documented by: Glucagon (Glucagon,Human Recombinant 1 Mg Vial) 1 mg IM ASDIRECTED PRN PRN Reason: Hypoglycemia Piperacillin Sod/Tazobactam (Sod 4.5 gm/ Sodium Chloride) 100 mls @ 100 mls/hr IV Q6H [facility] Last Admin: 09/13/20 17:54 Dose: 100 mls/hr Documented by: Pantoprazole Sodium 40 mg/ (Sodium Chloride) 10 mls @ 300 mls/hr IV Q24H [facility] Insulin Aspart (Insulin Aspart 100 Units/Ml 3 Ml Pen) 0 unit SUBCUT TIDAC [facility]; Protocol Last Admin: 09/13/20 18:10 Dose: 9 units Documented by: Insulin Human NPH (Insulin Isophane Nph, Human 100 Units/Ml 10 Ml Vial) 20 unit SUBCUT BIDAC [facility] Last Admin: 09/13/20 18:10 Dose: 20 units Documented by: Lisinopril (Lisinopril 10 Mg Tab) 20 mg PO BID [facility] Last Admin: 09/13/20 09:10 Dose: 20 mg Documented by: Morphine Sulfate (Morphine 2 Mg/Ml Syringe) 2 mg IVPUSH Q2H PRN PRN Reason: Pain (severe 7-10) Last Admin: 09/13/20 16:11 Dose: 2 mg Documented by: Ondansetron HCl (Ondansetron 4 Mg/2 Ml Sdv) 4 mg IVPUSH Q4H PRN PRN Reason: Nausea Oxycodone HCl (Oxycodone 5 Mg Tab) 5 mg PO Q4H PRN PRN Reason: Pain (moderate 4-6) Last Admin: 09/13/20 13:56 Dose: 5 mg Documented by: Sodium Chloride (Sodium Chloride 0.9% 2.5 Ml Syringe) 2.5 ml FLUSH ASDIRECTED PRN PRN Reason: Keep Vein Open Discontinued Medications Bacitracin (Bacitracin Oint 28.35 Gm Tube) 1 gm TOP ONETIME ONE Stop: 09/10/20 12:41 Last Admin: 09/10/20 12:58 Dose: 1 applicful Documented by: Bupivacaine HCl (Bupivacaine 0.5% 10 Ml Sdv) Confirm Administered Dose 10 ml .ROUTE .STK-MED ONE Stop: 09/08/20 16:48 Al Hydroxide/Mg Hydroxide 15 (ml/ Lidocaine HCl 5 ml) 0 ml PO ONETIME ONE Stop: 09/13/20 11:01 Last Admin: 09/13/20 12:01 Dose: 5 each Documented by: Al Hydroxide/Mg Hydroxide 15 ml/ Metoclopramide HCl 5 mg/Lidocaine HCl 5 ml 0 ml PO ONETIME ONE Stop: 09/13/20 14:46 Last Admin: 09/13/20 15:00 Dose: 10 each Documented by: Famotidine (Famotidine 20 Mg/2 Ml Sdv) 40 mg IVPUSH ONETIME ONE Stop: 09/08/20 14:04 Last Admin: 09/08/20 14:25 Dose: 40 mg Documented by: Fentanyl (Fentanyl 100 Mcg/2 Ml Sdv) Confirm Administered Dose 100 mcg .ROUTE .STK-MED ONE Stop: 09/08/20 17:33 Gadobenate Dimeglumine (Gadobenate Dimeglumine 529 Mg/Ml 20 Ml Sdv) 20 ml IVPUSH ONETIME STA Stop: 09/08/20 07:38 Last Admin: 09/08/20 07:39 Dose: 20 ml Documented by: Gadobenate Dimeglumine (Gadobenate Dimeglumine 529 Mg/Ml 20 Ml Sdv) 20 ml IVPUSH ONETIME STA Stop: 09/12/20 07:26 Last Admin: 09/12/20 07:27 Dose: 20 ml Documented by: Sodium Chloride (Normal Saline) 1,000 mls @ 999 mls/hr IV .Bolus ONE Stop: 09/07/20 12:43 Last Admin: 09/07/20 12:25 Dose: 999 mls/hr Documented by: Vancomycin HCl 1,500 mg/ (Sodium Chloride) 100 mls @ 100 mls/hr IV ONETIME ONE Stop: 09/07/20 12:42 Last Admin: 09/07/20 13:22 Dose: Not Given Documented by: Piperacillin Sod/Tazobactam (Sod 3.375 gm/ Sodium Chloride) 50 mls @ 100 mls/hr IV ONETIME ONE Stop: 09/07/20 12:12 Last Admin: 09/07/20 12:27 Dose: 100 mls/hr Documented by: Magnesium Sulfate 2 gm/ Premix 50 mls @ 50 mls/hr IV ONETIME ONE Stop: 09/07/20 13:51 Last Admin: 09/07/20 14:00 Dose: 50 mls/hr Documented by: Vancomycin HCl 1.5 gm/ Premix 300 mls @ 200 mls/hr IV ONETIME ONE Stop: 09/07/20 14:50 Last Admin: 09/07/20 14:00 Dose: 200 mls/hr Documented by: Sodium Chloride (Normal Saline) 1,000 mls @ 125 mls/hr IV Q8H [facility] Last Admin: 09/09/20 13:43 Dose: Not Given Documented by: Piperacillin Sod/Tazobactam (Sod 4.5 gm/ Sodium Chloride) 100 mls @ 100 mls/hr IV Q8H [facility] Last Admin: 09/08/20 04:29 Dose: 100 mls/hr Documented by: Vancomycin HCl 1.5 gm/ Premix 300 mls @ 200 mls/hr IV Q12H [facility] Stop: 09/09/20 16:00 Last Admin: 09/09/20 14:20 Dose: 200 mls/hr Documented by: Piperacillin Sod/Tazobactam (Sod 4.5 gm/ Sodium Chloride) 100 mls @ 100 mls/hr IV Q6H [facility] Last Admin: 09/10/20 09:39 Dose: 100 mls/hr Documented by: Vancomycin HCl 1.5 gm/ Premix 300 mls @ 200 mls/hr IV Q8H [facility] Last Admin: 09/10/20 05:09 Dose: 200 mls/hr Documented by: Magnesium Sulfate (Magnesium Sulfate In Water 2 Gm/50 Ml) 2 gm in 50 mls @ 50 mls/hr IV ONETIME ONE Stop: 09/10/20 11:59 Last Admin: 09/10/20 12:59 Dose: 50 mls/hr Documented by: Cefazolin Sodium/Dextrose 2 gm (/ Premix) 50 mls @ 100 mls/hr IV Q8H [facility] Last Admin: 09/12/20 10:40 Dose: 100 mls/hr Documented by: Magnesium Sulfate (Magnesium Sulfate In Water 2 Gm/50 Ml) 2 gm in 50 mls @ 50 mls/hr IV ONETIME ONE Stop: 09/11/20 11:44 Last Admin: 09/11/20 11:41 Dose: 50 mls/hr Documented by: Magnesium Sulfate (Magnesium Sulfate In Water 2 Gm/50 Ml) 2 gm in 50 mls @ 50 mls/hr IV ONETIME ONE Stop: 09/12/20 09:28 Last Admin: 09/12/20 09:27 Dose: 50 mls/hr Documented by: Magnesium Sulfate (Magnesium Sulfate In Water 4 Gm/100 Ml) 4 gm in 100 mls @ 50 mls/hr IV ONETIME ONE Stop: 09/13/20 10:29 Last Admin: 09/13/20 09:10 Dose: 50 mls/hr Documented by: Pantoprazole Sodium 40 mg/ (Sodium Chloride) 10 mls @ 300 mls/hr IV NOW ONE Stop: 09/13/20 14:16 Last Admin: 09/13/20 14:28 Dose: 300 mls/hr Documented by: Iopamidol (Iopamidol 755 Mg/Ml 500 Ml Multipack Bottle) 50 ml IVPUSH ONETIME STA Stop: 09/13/20 17:59 Last Admin: 09/13/20 17:59 Dose: 50 ml Documented by: Lidocaine HCl (Lidocaine 1% 20 Ml Mdv) Confirm Administered Dose 20 ml .ROUTE .STK-MED ONE Stop: 09/08/20 16:48 Metoclopramide HCl (Metoclopramide 10 Mg/2 Ml Sdv) 10 mg IVPUSH ONETIME ONE Stop: 09/08/20 14:06 Last Admin: 09/08/20 14:25 Dose: 10 mg Documented by: Midazolam HCl (Midazolam 1 Mg/Ml 2 Ml Sdv) Confirm Administered Dose 2 mg .ROUTE .STK-MED ONE Stop: 09/08/20 17:33 Morphine Sulfate (Morphine 2 Mg/Ml Syringe) 2 mg IVPUSH ONETIME ONE Stop: 09/13/20 14:13 Last Admin: 09/13/20 14:32 Dose: Not Given Documented by: Ondansetron HCl (Ondansetron 4 Mg/2 Ml Sdv) Confirm Administered Dose 4 mg .ROUTE .STK-MED ONE Stop: 09/07/20 13:59 Last Admin: 09/07/20 14:03 Dose: Not Given Documented by: Ondansetron HCl (Ondansetron 4 Mg/2 Ml Sdv) 4 mg IVPUSH ONETIME ONE Stop: 09/07/20 14:01 Last Admin: 09/07/20 14:03 Dose: 4 mg Documented by: Oxycodone/Acetaminophen (Acetaminophen/Oxycodone 325-5 Mg Tab) 2 tab PO ONETIME ONE Stop: 09/07/20 11:44 Last Admin: 09/07/20 12:25 Dose: 2 tab Documented by: Pantoprazole Sodium (Pantoprazole 40 Mg Tab.Cr) 40 mg PO DAILY [facility] Last Admin: 09/13/20 11:32 Dose: 40 mg Documented by: Sodium Chloride (Sodium Chloride 0.9% 10 Ml Syringe) 10 ml FLUSH ASDIRECTED PRN PRN Reason: Keep Vein Open Last Admin: 09/07/20 12:27 Dose: 10 ml Documented by: Sodium Chloride (Sodium Chloride 0.9% 2.5 Ml Syringe) 2.5 ml FLUSH ASDIRECTED PRN PRN Reason: Keep Vein Open Last Admin: 09/07/20 12:27 Dose: 2.5 ml Documented by: Vancomycin HCl (Pharmacy To Dose - Vancomycin) 1 dose .XX ASDIRECTED [facility] - Exam Peripheral Pulses: 1+: Posterior Tibial (L), Posterior Tibial (R), Dorsalis Pedis (L), Dorsalis Pedis (R) Skin: Warm Wound/Incisions: Healing Well, Dressing Dry and Intact Physical Findings Comments:: minimal active drainage, no purulence seen to right first web space and plantar foot ulcer sites Sepsis Event Note - Evaluation Sepsis Screening Result: No Definite Risk - Focused Exam Vital Signs: Vital Signs Temp Pulse Resp BP Pulse Ox 09/13/20 16:55 36.4 C 98 16 115/63 93 L 09/13/20 15:21 36.6 C 97 16 133/81 92 L 09/13/20 14:15 36.3 C 18 156/97 H 97 09/13/20 11:47 36.2 C 100 17 137/81 95 Consult PN Assessment/Plan POD#: 4 Procedures: Procedures ASSAY OF CK (CPK) (08/24/20) ASSAY OF LACTIC ACID (08/24/20) ASSAY OF MAGNESIUM (08/16/20) ASSAY OF PHOSPHORUS (08/16/20) ASSAY OF VANCOMYCIN (08/24/20) BLOOD CULTURE FOR BACTERIA (08/24/20) C-REACTIVE PROTEIN (08/24/20) COMPLETE CBC W/AUTO DIFF WBC (08/24/20) COMPREHEN METABOLIC PANEL (08/24/20) CT LOWER EXTREMITY W/O DYE (08/24/20) EMERGENCY DEPT VISIT (08/24/20) EXTREMITY STUDY (08/16/20) GLUCOSE BLOOD TEST (08/24/20) GLYCOSYLATED HEMOGLOBIN TEST (08/24/20) METABOLIC PANEL TOTAL CA (08/24/20) PT EVAL LOW COMPLEX 20 MIN (08/24/20) RBC SED RATE AUTOMATED (08/24/20) ROUTINE VENIPUNCTURE (08/24/20) SARS-COV-2 COVID-19 AMP PRB (08/24/20) THER/DIAG CONCURRENT INF (08/24/20) THER/PROPH/DIAG IV INF INIT (08/24/20) URINALYSIS AUTO W/SCOPE (08/24/20) X-RAY EXAM CHEST 1 VIEW (08/24/20) X-RAY EXAM OF FOOT (08/23/20) (1) Diabetic ulcer of foot associated with diabetes mellitus due to underlying condition, limited to breakdown of skin SNOMED Code(s): 734656500, 639687639 Code(s): E08.621 - DIABETES MELLITUS DUE TO UNDERLYING CONDITION W FOOT ULCER; L97.501 - NON-PRS CHR ULCER OTH PRT UNSP FOOT LIMITED TO BRKDWN SKIN Current Visit: Yes Qualifiers: Diabetic foot ulcer location: unspecified part of foot Laterality: right Qualified Code(s): E08.621 - Diabetes mellitus due to underlying condition with foot ulcer; L97.511 - Non-pressure chronic ulcer of other part of right foot limited to breakdown of skin (2) Diabetic foot ulcer SNOMED Code(s): 268827965 Code(s): E11.621 - TYPE 2 DIABETES MELLITUS WITH FOOT ULCER; L97.509 - NON- PRESSURE CHRONIC ULCER OTH PRT UNSP FOOT W UNSP SEVERITY Current Visit: No Qualifiers: Diabetes mellitus type: type 2 Laterality: right Non-pressure ulcer stage: with necrosis of muscle Assessment:: right foot: further improvement, minimal drainage to dorsal and plantar ulcers, ulcer remains stable but deep - it probes to level of tendon and small amount of 2nd extensor tendon no longer present following debridement of necrotic portion yesterday in OR. The first interspace has a void that will be a challenge to fill with healthy tissue. Problem List Initiated/Reviewed/Updated: Yes Plan: Patient examined and evaluated. Dressing change was performed earlier by nursing per orders. Continue IV antibotics pending final result on anaerobic culture. Culture taken in OR has resulted with MSSA Once patienet is discharged, she will plan to follow up in my office and I expect to have a wound vac available to place on her by then. Will follow.
[2020-09-13] MEDS: atorvaSTATin 20 MG Tab PO SCH (21:34)
[2020-09-14] MEDS: Piperacillin/Tazobactam 4.5 GM in Sodium Chloride 0.9% 100 ML IV SCH ×4 (00:16→17:25)
[2020-09-14 06:23] LABS: CARBON DIOXIDE,CO2 29.4 mmol/L (21.0-32.0); POTASSIUM,K 3.8 mmol/L (3.5-5.1)
[2020-09-14] MEDS: Pantoprazole 40 MG in Sodium Chloride 0.9% 10 ML IV SCH (07:23)
[2020-09-14] MEDS: Insulin Isophane NPH, Human 100 Units/ML 10 ML Vial SUBCUT SCH ×2 (07:54→18:12)
--- NOTE | 2020-09-14 07:55 | PCM.PN ---
- General Info Date of Service: 09/14/20 Admission Dx/Problem (Free Text): Admission Diagnosis/Problem Admission Diagnosis/Problem Diabetic foot ulcer Subjective Update: Feeling improved today. Continues to have mild pressure epigastric region. But not severe pain like yesterday. Reports she does have history of esophageal ulcer. Denies any chest pain or shortness of breath. Denies any fevers or chills. Reports foot has been improving. No other concerns Functional Status: Reports: Pain Controlled, Tolerating Diet, Ambulating, Uri nating - Review of Systems General: Reports: No Symptoms. Denies: Weakness, Fatigue, Malaise HEENT: Reports: No Symptoms. Denies: Sore Throat, Rhinitis, Visual Changes Pulmonary: Reports: No Symptoms. Denies: Shortness of Breath Cardiovascular: Reports: No Symptoms. Denies: Chest Pain Gastrointestinal: Reports: Abdominal Pain (Epigastric region pressure). Denies: Nausea, Vomiting Genitourinary: Reports: No Symptoms. Denies: Dysuria, Frequency, Burning Musculoskeletal: Reports: No Symptoms Skin: Reports: No Symptoms Neurological: Reports: No Symptoms Psychiatric: Reports: No Symptoms - Patient Data Vitals - Most Recent: Last Vital Signs Temp 97.7 F 09/14/20 07:37 Pulse 82 09/14/20 07:37 Resp 18 09/14/20 07:37 BP 100/58 L 09/14/20 07:37 Pulse Ox 93 L 09/14/20 07:37 Weight - Most Recent: 102.965 kg I&O - Last 24 Hours: Intake & Output 09/13/20 09/14/20 09/14/20 22:59 06:59 14:59 Intake Total 2160 690 Output Total 1300 350 Balance 860 340 Lab Results Last 24 Hours: Laboratory Results - last 24 hr 09/13/20 09/13/20 09/13/20 Range/Units 11:32 13:04 14:12 WBC (4.0-11.0) K/uL RBC (4.30-5.90) M/uL Hgb (12.0-16.0) g/dL Hct (36.0-46.0) % MCV (80.0-98.0) fL MCH (27.0-32.0) pg MCHC (31.0-37.0) g/dL RDW Std Deviation (28.0-62.0) fl RDW Coeff of Olimpia (11.0-15.0) % Plt Count (150-400) K/uL MPV (7.40-12.00) fL Neut % (Auto) (48.0-80.0) % Lymph % (Auto) (16.0-40.0) % Cobb % (Auto) (0.0-15.0) % Eos % (Auto) (0.0-7.0) % Baso % (Auto) (0.0-1.5) % Neut # (Auto) (1.4-5.7) K/uL Lymph # (Auto) (0.6-2.4) K/uL Cobb # (Auto) (0.0-0.8) K/uL Eos # (Auto) (0.0-0.7) K/uL Baso # (Auto) (0.0-0.1) K/uL Nucleated RBC % /100WBC Nucleated RBCs # K/uL Sodium (136-145) mmol/L Potassium (3.5-5.1) mmol/L Chloride (98-107) mmol/L Carbon Dioxide (21.0-32.0) mmol/L BUN (7.0-18.0) mg/dL Creatinine (0.6-1.0) mg/dL Est Cr Clr Drug Dosing mL/min Estimated GFR (MDRD) ml/min Glucose (74-106) mg/dL POC Glucose 238 H 205 H (60-110) mg/dL Calcium (8.5-10.1) mg/dL Magnesium (1.8-2.4) mg/dL Troponin I < 0.050 (0.000-0.056) ng/mL 09/13/20 09/13/20 09/13/20 Range/Units 17:45 17:47 20:35 WBC (4.0-11.0) K/uL RBC (4.30-5.90) M/uL Hgb (12.0-16.0) g/dL Hct (36.0-46.0) % MCV (80.0-98.0) fL MCH (27.0-32.0) pg MCHC (31.0-37.0) g/dL RDW Std Deviation (28.0-62.0) fl RDW Coeff of Olimpia (11.0-15.0) % Plt Count (150-400) K/uL MPV (7.40-12.00) fL Neut % (Auto) (48.0-80.0) % Lymph % (Auto) (16.0-40.0) % Cobb % (Auto) (0.0-15.0) % Eos % (Auto) (0.0-7.0) % Baso % (Auto) (0.0-1.5) % Neut # (Auto) (1.4-5.7) K/uL Lymph # (Auto) (0.6-2.4) K/uL Cobb # (Auto) (0.0-0.8) K/uL Eos # (Auto) (0.0-0.7) K/uL Baso # (Auto) (0.0-0.1) K/uL Nucleated RBC % /100WBC Nucleated RBCs # K/uL Sodium (136-145) mmol/L Potassium (3.5-5.1) mmol/L Chloride (98-107) mmol/L Carbon Dioxide (21.0-32.0) mmol/L BUN (7.0-18.0) mg/dL Creatinine (0.6-1.0) mg/dL Est Cr Clr Drug Dosing mL/min Estimated GFR (MDRD) ml/min Glucose (74-106) mg/dL POC Glucose 280 H (60-110) mg/dL Calcium (8.5-10.1) mg/dL Magnesium (1.8-2.4) mg/dL Troponin I < 0.050 < 0.050 (0.000-0.056) ng/mL 09/14/20 09/14/20 09/14/20 Range/Units 05:41 05:48 05:48 WBC 13.15 H (4.0-11.0) K/uL RBC 3.77 L (4.30-5.90) M/uL Hgb 11.6 L (12.0-16.0) g/dL Hct 35.2 L (36.0-46.0) % MCV 93.4 (80.0-98.0) fL MCH 30.8 (27.0-32.0) pg MCHC 33.0 (31.0-37.0) g/dL RDW Std Deviation 42.3 (28.0-62.0) fl RDW Coeff of Olimpia 13 (11.0-15.0) % Plt Count 309 (150-400) K/uL MPV 10.00 (7.40-12.00) fL Neut % (Auto) 69.8 (48.0-80.0) % Lymph % (Auto) 19.2 (16.0-40.0) % Cobb % (Auto) 10.1 (0.0-15.0) % Eos % (Auto) 0.7 (0.0-7.0) % Baso % (Auto) 0.2 (0.0-1.5) % Neut # (Auto) 9.2 H (1.4-5.7) K/uL Lymph # (Auto) 2.5 H (0.6-2.4) K/uL Cobb # (Auto) 1.3 H (0.0-0.8) K/uL Eos # (Auto) 0.1 (0.0-0.7) K/uL Baso # (Auto) 0.0 (0.0-0.1) K/uL Nucleated RBC % 0.0 /100WBC Nucleated RBCs # 0 K/uL Sodium 138 (136-145) mmol/L Potassium 3.8 (3.5-5.1) mmol/L Chloride 102 (98-107) mmol/L Carbon Dioxide 29.4 (21.0-32.0) mmol/L BUN 16 (7.0-18.0) mg/dL Creatinine 1.0 (0.6-1.0) mg/dL Est Cr Clr Drug Dosing 56.53 mL/min Estimated GFR (MDRD) 57.4 ml/min Glucose 187 H (74-106) mg/dL POC Glucose 194 H (60-110) mg/dL Calcium 8.6 (8.5-10.1) mg/dL Magnesium 2.5 H (1.8-2.4) mg/dL Troponin I (0.000-0.056) ng/mL Med Orders - Current: Current Medications Acetaminophen (Acetaminophen 325 Mg Tab) 650 mg PO Q4H PRN PRN Reason: Pain (Mild 1-3)/fever Last Admin: 09/13/20 10:22 Dose: 650 mg Documented by: Atorvastatin Calcium (Atorvastatin 20 Mg Tab) 20 mg PO BEDTIME [facility] Last Admin: 09/13/20 21:34 Dose: 20 mg Documented by: Dextrose/Water (50% Dextrose In Water 50 Ml Syringe) 50 ml IV ASDIRECTED PRN PRN Reason: Hypoglycemia Docusate Sodium (Docusate Sodium 100 Mg Cap) 100 mg PO BID PRN PRN Reason: Constipation Duloxetine HCl (Duloxetine 30 Mg Cap) 30 mg PO DAILY [facility] Last Admin: 09/13/20 08:31 Dose: 30 mg Documented by: Enoxaparin Sodium (Enoxaparin 40 Mg/0.4 Ml Syringe) 40 mg SUBCUT Q24H [facility] Last Admin: 09/13/20 15:18 Dose: 40 mg Documented by: Gabapentin (Gabapentin 300 Mg Cap) 300 mg PO DAILY [facility] Last Admin: 09/13/20 08:31 Dose: 300 mg Documented by: Glucagon (Glucagon,Human Recombinant 1 Mg Vial) 1 mg IM ASDIRECTED PRN PRN Reason: Hypoglycemia Piperacillin Sod/Tazobactam (Sod 4.5 gm/ Sodium Chloride) 100 mls @ 100 mls/hr IV Q6H [facility] Last Admin: 09/14/20 05:34 Dose: 100 mls/hr Documented by: Pantoprazole Sodium 40 mg/ (Sodium Chloride) 10 mls @ 300 mls/hr IV Q24H [facility] Last Admin: 09/14/20 07:23 Dose: 300 mls/hr Documented by: Insulin Aspart (Insulin Aspart 100 Units/Ml 3 Ml Pen) 0 unit SUBCUT TIDAC [facility]; Protocol Last Admin: 09/13/20 18:10 Dose: 9 units Documented by: Insulin Human NPH (Insulin Isophane Nph, Human 100 Units/Ml 10 Ml Vial) 20 unit SUBCUT BIDAC [facility] Last Admin: 09/13/20 18:10 Dose: 20 units Documented by: Morphine Sulfate (Morphine 2 Mg/Ml Syringe) 2 mg IVPUSH Q2H PRN PRN Reason: Pain (severe 7-10) Last Admin: 09/13/20 16:11 Dose: 2 mg Documented by: Ondansetron HCl (Ondansetron 4 Mg/2 Ml Sdv) 4 mg IVPUSH Q4H PRN PRN Reason: Nausea Oxycodone HCl (Oxycodone 5 Mg Tab) 5 mg PO Q4H PRN PRN Reason: Pain (moderate 4-6) Last Admin: 09/13/20 13:56 Dose: 5 mg Documented by: Sodium Chloride (Sodium Chloride 0.9% 2.5 Ml Syringe) 2.5 ml FLUSH ASDIRECTED PRN PRN Reason: Keep Vein Open Discontinued Medications Bacitracin (Bacitracin Oint 28.35 Gm Tube) 1 gm TOP ONETIME ONE Stop: 09/10/20 12:41 Last Admin: 09/10/20 12:58 Dose: 1 applicful Documented by: Bupivacaine HCl (Bupivacaine 0.5% 10 Ml Sdv) Confirm Administered Dose 10 ml .ROUTE .STK-MED ONE Stop: 09/08/20 16:48 Al Hydroxide/Mg Hydroxide 15 (ml/ Lidocaine HCl 5 ml) 0 ml PO ONETIME ONE Stop: 09/13/20 11:01 Last Admin: 09/13/20 12:01 Dose: 5 each Documented by: Al Hydroxide/Mg Hydroxide 15 ml/ Metoclopramide HCl 5 mg/Lidocaine HCl 5 ml 0 ml PO ONETIME ONE Stop: 09/13/20 14:46 Last Admin: 09/13/20 15:00 Dose: 10 each Documented by: Famotidine (Famotidine 20 Mg/2 Ml Sdv) 40 mg IVPUSH ONETIME ONE Stop: 09/08/20 14:04 Last Admin: 09/08/20 14:25 Dose: 40 mg Documented by: Fentanyl (Fentanyl 100 Mcg/2 Ml Sdv) Confirm Administered Dose 100 mcg .ROUTE .STK-MED ONE Stop: 09/08/20 17:33 Gadobenate Dimeglumine (Gadobenate Dimeglumine 529 Mg/Ml 20 Ml Sdv) 20 ml IVPUSH ONETIME STA Stop: 09/08/20 07:38 Last Admin: 09/08/20 07:39 Dose: 20 ml Documented by: Gadobenate Dimeglumine (Gadobenate Dimeglumine 529 Mg/Ml 20 Ml Sdv) 20 ml IVPUSH ONETIME STA Stop: 09/12/20 07:26 Last Admin: 09/12/20 07:27 Dose: 20 ml Documented by: Sodium Chloride (Normal Saline) 1,000 mls @ 999 mls/hr IV .Bolus ONE Stop: 09/07/20 12:43 Last Admin: 09/07/20 12:25 Dose: 999 mls/hr Documented by: Vancomycin HCl 1,500 mg/ (Sodium Chloride) 100 mls @ 100 mls/hr IV ONETIME ONE Stop: 09/07/20 12:42 Last Admin: 09/07/20 13:22 Dose: Not Given Documented by: Piperacillin Sod/Tazobactam (Sod 3.375 gm/ Sodium Chloride) 50 mls @ 100 mls/hr IV ONETIME ONE Stop: 09/07/20 12:12 Last Admin: 09/07/20 12:27 Dose: 100 mls/hr Documented by: Magnesium Sulfate 2 gm/ Premix 50 mls @ 50 mls/hr IV ONETIME ONE Stop: 09/07/20 13:51 Last Admin: 09/07/20 14:00 Dose: 50 mls/hr Documented by: Vancomycin HCl 1.5 gm/ Premix 300 mls @ 200 mls/hr IV ONETIME ONE Stop: 09/07/20 14:50 Last Admin: 09/07/20 14:00 Dose: 200 mls/hr Documented by: Sodium Chloride (Normal Saline) 1,000 mls @ 125 mls/hr IV Q8H [facility] Last Admin: 09/09/20 13:43 Dose: Not Given Documented by: Piperacillin Sod/Tazobactam (Sod 4.5 gm/ Sodium Chloride) 100 mls @ 100 mls/hr IV Q8H [facility] Last Admin: 09/08/20 04:29 Dose: 100 mls/hr Documented by: Vancomycin HCl 1.5 gm/ Premix 300 mls @ 200 mls/hr IV Q12H [facility] Stop: 09/09/20 16:00 Last Admin: 09/09/20 14:20 Dose: 200 mls/hr Documented by: Piperacillin Sod/Tazobactam (Sod 4.5 gm/ Sodium Chloride) 100 mls @ 100 mls/hr IV Q6H [facility] Last Admin: 09/10/20 09:39 Dose: 100 mls/hr Documented by: Vancomycin HCl 1.5 gm/ Premix 300 mls @ 200 mls/hr IV Q8H [facility] Last Admin: 09/10/20 05:09 Dose: 200 mls/hr Documented by: Magnesium Sulfate (Magnesium Sulfate In Water 2 Gm/50 Ml) 2 gm in 50 mls @ 50 mls/hr IV ONETIME ONE Stop: 09/10/20 11:59 Last Admin: 09/10/20 12:59 Dose: 50 mls/hr Documented by: Cefazolin Sodium/Dextrose 2 gm (/ Premix) 50 mls @ 100 mls/hr IV Q8H [facility] Last Admin: 09/12/20 10:40 Dose: 100 mls/hr Documented by: Magnesium Sulfate (Magnesium Sulfate In Water 2 Gm/50 Ml) 2 gm in 50 mls @ 50 mls/hr IV ONETIME ONE Stop: 09/11/20 11:44 Last Admin: 09/11/20 11:41 Dose: 50 mls/hr Documented by: Magnesium Sulfate (Magnesium Sulfate In Water 2 Gm/50 Ml) 2 gm in 50 mls @ 50 mls/hr IV ONETIME ONE Stop: 09/12/20 09:28 Last Admin: 09/12/20 09:27 Dose: 50 mls/hr Documented by: Magnesium Sulfate (Magnesium Sulfate In Water 4 Gm/100 Ml) 4 gm in 100 mls @ 50 mls/hr IV ONETIME ONE Stop: 09/13/20 10:29 Last Admin: 09/13/20 09:10 Dose: 50 mls/hr Documented by: Pantoprazole Sodium 40 mg/ (Sodium Chloride) 10 mls @ 300 mls/hr IV NOW ONE Stop: 09/13/20 14:16 Last Admin: 09/13/20 14:28 Dose: 300 mls/hr Documented by: Iopamidol (Iopamidol 755 Mg/Ml 500 Ml Multipack Bottle) 50 ml IVPUSH ONETIME STA Stop: 09/13/20 17:59 Last Admin: 09/13/20 17:59 Dose: 50 ml Documented by: Lidocaine HCl (Lidocaine 1% 20 Ml Mdv) Confirm Administered Dose 20 ml .ROUTE .STK-MED ONE Stop: 09/08/20 16:48 Lisinopril (Lisinopril 10 Mg Tab) 20 mg PO BID [facility] Last Admin: 09/13/20 21:30 Dose: Not Given Documented by: Metoclopramide HCl (Metoclopramide 10 Mg/2 Ml Sdv) 10 mg IVPUSH ONETIME ONE Stop: 09/08/20 14:06 Last Admin: 09/08/20 14:25 Dose: 10 mg Documented by: Midazolam HCl (Midazolam 1 Mg/Ml 2 Ml Sdv) Confirm Administered Dose 2 mg .ROUTE .STK-MED ONE Stop: 09/08/20 17:33 Morphine Sulfate (Morphine 2 Mg/Ml Syringe) 2 mg IVPUSH ONETIME ONE Stop: 09/13/20 14:13 Last Admin: 09/13/20 14:32 Dose: Not Given Documented by: Ondansetron HCl (Ondansetron 4 Mg/2 Ml Sdv) Confirm Administered Dose 4 mg .ROUTE .STK-MED ONE Stop: 09/07/20 13:59 Last Admin: 09/07/20 14:03 Dose: Not Given Documented by: Ondansetron HCl (Ondansetron 4 Mg/2 Ml Sdv) 4 mg IVPUSH ONETIME ONE Stop: 09/07/20 14:01 Last Admin: 09/07/20 14:03 Dose: 4 mg Documented by: Oxycodone/Acetaminophen (Acetaminophen/Oxycodone 325-5 Mg Tab) 2 tab PO ONETIME ONE Stop: 09/07/20 11:44 Last Admin: 09/07/20 12:25 Dose: 2 tab Documented by: Pantoprazole Sodium (Pantoprazole 40 Mg Tab.Cr) 40 mg PO DAILY [facility] Last Admin: 09/13/20 11:32 Dose: 40 mg Documented by: Sodium Chloride (Sodium Chloride 0.9% 10 Ml Syringe) 10 ml FLUSH ASDIRECTED PRN PRN Reason: Keep Vein Open Last Admin: 09/07/20 12:27 Dose: 10 ml Documented by: Sodium Chloride (Sodium Chloride 0.9% 2.5 Ml Syringe) 2.5 ml FLUSH ASDIRECTED PRN PRN Reason: Keep Vein Open Last Admin: 09/07/20 12:27 Dose: 2.5 ml Documented by: Vancomycin HCl (Pharmacy To Dose - Vancomycin) 1 dose .XX ASDIRECTED [facility] - Exam General: Alert, Oriented, Cooperative, No Acute Distress Lungs: Clear to Auscultation, Normal Respiratory Effort Cardiovascular: Regular Rate, Regular Rhythm GI/Abdominal Exam: Normal Bowel Sounds, Soft, Non-Tender Extremities: Normal Inspection, Normal Range of Motion, Non-Tender, No Pedal Edema Wound/Incisions: Drainage (Scant purulent drainage continues to improve daily to right foot), Erythema Improving Neurological: No New Focal Deficit Psy/Mental Status: Alert, Normal Affect, Normal Mood - Patient Data Lab Results Last 24 hrs: Laboratory Results - last 24 hr 09/13/20 09/13/20 09/13/20 Range/Units 11:32 13:04 14:12 WBC (4.0-11.0) K/uL RBC (4.30-5.90) M/uL Hgb (12.0-16.0) g/dL Hct (36.0-46.0) % MCV (80.0-98.0) fL MCH (27.0-32.0) pg MCHC (31.0-37.0) g/dL RDW Std Deviation (28.0-62.0) fl RDW Coeff of Olimpia (11.0-15.0) % Plt Count (150-400) K/uL MPV (7.40-12.00) fL Neut % (Auto) (48.0-80.0) % Lymph % (Auto) (16.0-40.0) % Cobb % (Auto) (0.0-15.0) % Eos % (Auto) (0.0-7.0) % Baso % (Auto) (0.0-1.5) % Neut # (Auto) (1.4-5.7) K/uL Lymph # (Auto) (0.6-2.4) K/uL Cobb # (Auto) (0.0-0.8) K/uL Eos # (Auto) (0.0-0.7) K/uL Baso # (Auto) (0.0-0.1) K/uL Nucleated RBC % /100WBC Nucleated RBCs # K/uL Sodium (136-145) mmol/L Potassium (3.5-5.1) mmol/L Chloride (98-107) mmol/L Carbon Dioxide (21.0-32.0) mmol/L BUN (7.0-18.0) mg/dL Creatinine (0.6-1.0) mg/dL Est Cr Clr Drug Dosing mL/min Estimated GFR (MDRD) ml/min Glucose (74-106) mg/dL POC Glucose 238 H 205 H (60-110) mg/dL Calcium (8.5-10.1) mg/dL Magnesium (1.8-2.4) mg/dL Troponin I < 0.050 (0.000-0.056) ng/mL 09/13/20 09/13/20 09/13/20 Range/Units 17:45 17:47 20:35 WBC (4.0-11.0) K/uL RBC (4.30-5.90) M/uL Hgb (12.0-16.0) g/dL Hct (36.0-46.0) % MCV (80.0-98.0) fL MCH (27.0-32.0) pg MCHC (31.0-37.0) g/dL RDW Std Deviation (28.0-62.0) fl RDW Coeff of Olimpia (11.0-15.0) % Plt Count (150-400) K/uL MPV (7.40-12.00) fL Neut % (Auto) (48.0-80.0) % Lymph % (Auto) (16.0-40.0) % Cobb % (Auto) (0.0-15.0) % Eos % (Auto) (0.0-7.0) % Baso % (Auto) (0.0-1.5) % Neut # (Auto) (1.4-5.7) K/uL Lymph # (Auto) (0.6-2.4) K/uL Cobb # (Auto) (0.0-0.8) K/uL Eos # (Auto) (0.0-0.7) K/uL Baso # (Auto) (0.0-0.1) K/uL Nucleated RBC % /100WBC Nucleated RBCs # K/uL Sodium (136-145) mmol/L Potassium (3.5-5.1) mmol/L Chloride (98-107) mmol/L Carbon Dioxide (21.0-32.0) mmol/L BUN (7.0-18.0) mg/dL Creatinine (0.6-1.0) mg/dL Est Cr Clr Drug Dosing mL/min Estimated GFR (MDRD) ml/min Glucose (74-106) mg/dL POC Glucose 280 H (60-110) mg/dL Calcium (8.5-10.1) mg/dL Magnesium (1.8-2.4) mg/dL Troponin I < 0.050 < 0.050 (0.000-0.056) ng/mL 09/14/20 09/14/20 09/14/20 Range/Units 05:41 05:48 05:48 WBC 13.15 H (4.0-11.0) K/uL RBC 3.77 L (4.30-5.90) M/uL Hgb 11.6 L (12.0-16.0) g/dL Hct 35.2 L (36.0-46.0) % MCV 93.4 (80.0-98.0) fL MCH 30.8 (27.0-32.0) pg MCHC 33.0 (31.0-37.0) g/dL RDW Std Deviation 42.3 (28.0-62.0) fl RDW Coeff of Olimpia 13 (11.0-15.0) % Plt Count 309 (150-400) K/uL MPV 10.00 (7.40-12.00) fL Neut % (Auto) 69.8 (48.0-80.0) % Lymph % (Auto) 19.2 (16.0-40.0) % Cobb % (Auto) 10.1 (0.0-15.0) % Eos % (Auto) 0.7 (0.0-7.0) % Baso % (Auto) 0.2 (0.0-1.5) % Neut # (Auto) 9.2 H (1.4-5.7) K/uL Lymph # (Auto) 2.5 H (0.6-2.4) K/uL Cobb # (Auto) 1.3 H (0.0-0.8) K/uL Eos # (Auto) 0.1 (0.0-0.7) K/uL Baso # (Auto) 0.0 (0.0-0.1) K/uL Nucleated RBC % 0.0 /100WBC Nucleated RBCs # 0 K/uL Sodium 138 (136-145) mmol/L Potassium 3.8 (3.5-5.1) mmol/L Chloride 102 (98-107) mmol/L Carbon Dioxide 29.4 (21.0-32.0) mmol/L BUN 16 (7.0-18.0) mg/dL Creatinine 1.0 (0.6-1.0) mg/dL Est Cr Clr Drug Dosing 56.53 mL/min Estimated GFR (MDRD) 57.4 ml/min Glucose 187 H (74-106) mg/dL POC Glucose 194 H (60-110) mg/dL Calcium 8.6 (8.5-10.1) mg/dL Magnesium 2.5 H (1.8-2.4) mg/dL Troponin I (0.000-0.056) ng/mL Result Diagrams: 09/14/20 05:48 09/14/20 05:48 Sepsis Event Note - Evaluation Sepsis Screening Result: No Definite Risk - Focused Exam Vital Signs: Vital Signs Temp Pulse Resp BP BP BP BP 09/14/20 07:37 97.7 F 82 18 100/58 L 09/14/20 04:00 97.7 F 86 16 99/54 L 09/14/20 00:25 103/59 L 09/14/20 00:10 98.1 F 80 16 86/50 L 09/13/20 21:30 90/60 09/13/20 21:00 96.9 F 81 17 88/47 L Pulse Ox 09/14/20 07:37 93 L 09/14/20 04:00 93 L 09/14/20 00:25 09/14/20 00:10 92 L 09/13/20 21:30 09/13/20 21:00 92 L - Problem List & Annotations (1) Obesity SNOMED Code(s): 273842313, 336031201 Code(s): E66.9 - OBESITY, UNSPECIFIED Status: Chronic Current Visit: Yes (2) Neuropathy SNOMED Code(s): 663082659 Code(s): G62.9 - POLYNEUROPATHY, UNSPECIFIED Status: Chronic Current Visit: No (3) Hypertension SNOMED Code(s): 19254648 Code(s): I10 - ESSENTIAL (PRIMARY) HYPERTENSION Status: Chronic Current Visit: No (4) Diabetic ulcer of foot associated with diabetes mellitus due to underlying condition, limited to breakdown of skin SNOMED Code(s): 230856204, 588844597 Code(s): E08.621 - DIABETES MELLITUS DUE TO UNDERLYING CONDITION W FOOT U LCER; L97.501 - NON-PRS CHR ULCER OTH PRT UNSP FOOT LIMITED TO BRKDWN SKIN Status: Acute Current Visit: Yes Qualifiers: Diabetic foot ulcer location: unspecified part of foot Laterality: right Qualified Code(s): E08.621 - Diabetes mellitus due to underlying condition with foot ulcer; L97.511 - Non-pressure chronic ulcer of other part of right foot limited to breakdown of skin (5) Hyperlipemia SNOMED Code(s): 75993765 Code(s): E78.5 - HYPERLIPIDEMIA, UNSPECIFIED Status: Chronic Current Visit: No (6) Hypomagnesemia SNOMED Code(s): 883768092 Code(s): E83.42 - HYPOMAGNESEMIA Status: Acute Current Visit: Yes - Problem List Review Problem List Initiated/Reviewed/Updated: Yes - My Orders Last 24 Hours: My Active Orders 09/13/20 14:02 EKG 12 Lead [EKG Documentation Completion] [RC] STAT 09/13/20 16:16 Telemetry Monitoring [Cardiac Monitoring] [RC] Q8H 09/14/20 07:00 Pantoprazole [ProTONIX IV] 40 mg Sodium Chloride 0.9% [Normal Saline] 10 ml IV Q24H 09/15/20 05:11 BASIC METABOLIC PANEL,BMP [CHEM] AM CBC WITH AUTO DIFF [HEME] AM MAGNESIUM [CHEM] AM 09/16/20 05:11 BASIC METABOLIC PANEL,BMP [CHEM] AM CBC WITH AUTO DIFF [HEME] AM MAGNESIUM [CHEM] AM - Plan Plan:: This 55-year-old female admitted with cellulitis and right foot diabetic ulcer. 1. Cellulitis/right foot diabetic ulcer -Cultures are growing MSSA , anaerobic culture growing potential organism. -Continue Zosyn 4.5 gm will extend to have continuous infusion. -MRI repeat shows progression bone marrow edema. questionable osteo and/or septic arthritis. Will set up for PICC line as outpatient and plan for detention IV antibiotics. patient is aware and agreeable with plan. -Dr. Pete on consult, appreciate his recommendations. Updated with above information - Continue wound care per Dr Pete instructions. -PICC line is set for Saturday likely discharge Saturday to immediately have PICC line if and when cultures are finalized. 2. DM type II, uncontrolled -Blood sugar checks 3 times daily before meals and as needed -NovoLog sliding scale insulin with meals -Continue Novolin H 20 units twice daily -ADA diet 3. Hypertension/HLD -restart Lisinopril -Continue statin 4. GERD history esophageal ulcer -Continue Protonix -Add Carafate with meals and at bedtime -GI cocktail as needed -Keep diet light. VTE prophylaxis: Lovenox CODE STATUS: Full code Dispo: Discharge pending anaerobic cultures. PICC line scheduled for Saturday in [facility].
[2020-09-14] MEDS: Insulin Aspart 100 Units/ML 3 ML Pen SUBCUT SCH ×3 (08:25→18:12)
[2020-09-14] MEDS: Gabapentin 300 MG Cap PO SCH (09:32)
[2020-09-14] MEDS: DULoxetine 30 MG Cap PO SCH (09:33)
[2020-09-14] MEDS ORDERED: Alum Hydrox/Mag Hydrox/Simeth 15 ML, Lidocaine 2% 5 ML PO PRN ×2 (10:45)
[2020-09-14] MEDS: Sucralfate Suspension 1 GM/10 ML Cup PO SCH ×3 (11:38→20:46)
[2020-09-14] MEDS: Enoxaparin 40 MG/0.4 ML Syringe SUBCUT SCH (15:37)
[2020-09-14] MEDS: atorvaSTATin 20 MG Tab PO SCH (20:46)
[2020-09-15] MEDS: Piperacillin/Tazobactam 4.5 GM in Sodium Chloride 0.9% 100 ML IV SCH ×4 (00:20→18:04)
[2020-09-15] MEDS: Pantoprazole 40 MG in Sodium Chloride 0.9% 10 ML IV SCH (06:08)
[2020-09-15] MEDS: Sucralfate Suspension 1 GM/10 ML Cup PO SCH ×5 (06:18→20:26)
[2020-09-15 06:56] LABS: BLOOD UREA NITROGEN,BUN 15 mg/dL (7.0-18.0); CARBON DIOXIDE,CO2 25.6 mmol/L (21.0-32.0); CHLORIDE,CL 104 mmol/L (98-107); GLUCOSE RANDOM 199 mg/dL (74-106); POTASSIUM,K 4.2 mmol/L (3.5-5.1); SODIUM,NA 137 mmol/L (136-145)
[2020-09-15] MEDS: Insulin Aspart 100 Units/ML 3 ML Pen SUBCUT SCH ×3 (07:37→18:03)
[2020-09-15] MEDS: Insulin Isophane NPH, Human 100 Units/ML 10 ML Vial SUBCUT SCH ×2 (07:39→18:04)
--- NOTE | 2020-09-15 07:59 | PCM.PN ---
- General Info Date of Service: 09/15/20 Admission Dx/Problem (Free Text): Admission Diagnosis/Problem Admission Diagnosis/Problem Diabetic foot ulcer Subjective Update: Continues to do well today. Denies any chest pain shortness of breath reports that her epigastric pain and upper back pain has significantly improved. No foot pain drainage to foot has improved. Awaiting culture results Functional Status: Reports: Pain Controlled, Tolerating Diet, Ambulating, Urinating - Review of Systems General: Reports: No Symptoms. Denies: Fatigue, Malaise HEENT: Reports: No Symptoms. Denies: Headaches, Sore Throat Pulmonary: Reports: No Symptoms. Denies: Shortness of Breath Cardiovascular: Reports: No Symptoms. Denies: Chest Pain Gastrointestinal: Reports: No Symptoms. Denies: Abdominal Pain, Nausea, Vomiting Genitourinary: Reports: Other (Menses started which she has not had for a year and a half. We will continue to monitor). Denies: Dysuria, Frequency, Burning Musculoskeletal: Reports: No Symptoms Skin: Reports: No Symptoms Neurological: Reports: No Symptoms Psychiatric: Reports: No Symptoms - Patient Data Vitals - Most Recent: Last Vital Signs Temp 98.3 F 09/15/20 06:55 Pulse 84 09/15/20 06:55 Resp 14 09/15/20 06:55 BP 144/79 H 09/15/20 06:55 Pulse Ox 94 L 09/15/20 06:55 Weight - Most Recent: 102.965 kg I&O - Last 24 Hours: Intake & Output 09/14/20 09/15/20 09/15/20 22:59 06:59 14:59 Intake Total 1500 750 Output Total 1050 900 Balance 450 -150 Lab Results Last 24 Hours: Laboratory Results - last 24 hr 09/14/20 09/14/20 09/15/20 Range/Units 11:45 17:23 06:15 WBC 10.49 (4.0-11.0) K/uL RBC 3.89 L (4.30-5.90) M/uL Hgb 12.2 (12.0-16.0) g/dL Hct 36.5 (36.0-46.0) % MCV 93.8 (80.0-98.0) fL MCH 31.4 (27.0-32.0) pg MCHC 33.4 (31.0-37.0) g/dL RDW Std Deviation 42.2 (28.0-62.0) fl RDW Coeff of [place]limpia 13 (11.0-15.0) % Plt Count 299 (150-400) K/uL MPV 10.40 (7.40-12.00) fL Neut % (Auto) 64.2 (48.0-80.0) % Lymph % (Auto) 21.9 (16.0-40.0) % [place] % (Auto) 10.6 (0.0-15.0) % Eos % (Auto) 3.1 (0.0-7.0) % Baso % (Auto) 0.2 (0.0-1.5) % Neut # (Auto) 6.7 H (1.4-5.7) K/uL Lymph # (Auto) 2.3 (0.6-2.4) K/uL [place] # (Auto) 1.1 H (0.0-0.8) K/uL Eos # (Auto) 0.3 (0.0-0.7) K/uL Baso # (Auto) 0.0 (0.0-0.1) K/uL Nucleated RBC % 0.0 /100WBC Nucleated RBCs # 0 K/uL Sodium (136-145) mmol/L Potassium (3.5-5.1) mmol/L Chloride (98-107) mmol/L Carbon Dioxide (21.0-32.0) mmol/L BUN (7.0-18.0) mg/dL Creatinine (0.6-1.0) mg/dL Est Cr Clr Drug Dosing mL/min Estimated GFR (MDRD) ml/min Glucose (74-106) mg/dL POC Glucose 222 H 221 H (70-99) mg/dL Calcium (8.5-10.1) mg/dL Magnesium (1.8-2.4) mg/dL 09/15/20 09/15/20 Range/Units 06:15 06:26 WBC (4.0-11.0) K/uL RBC (4.30-5.90) M/uL Hgb (12.0-16.0) g/dL Hct (36.0-46.0) % MCV (80.0-98.0) fL MCH (27.0-32.0) pg MCHC (31.0-37.0) g/dL RDW Std Deviation (28.0-62.0) fl RDW Coeff of [place] (11.0-15.0) % Plt Count (150-400) K/uL MPV (7.40-12.00) fL Neut % (Auto) (48.0-80.0) % Lymph % (Auto) (16.0-40.0) % [place] % (Auto) (0.0-15.0) % Eos % (Auto) (0.0-7.0) % Baso % (Auto) (0.0-1.5) % Neut # (Auto) (1.4-5.7) K/uL Lymph # (Auto) (0.6-2.4) K/uL [place] # (Auto) (0.0-0.8) K/uL Eos # (Auto) (0.0-0.7) K/uL Baso # (Auto) (0.0-0.1) K/uL Nucleated RBC % /100WBC Nucleated RBCs # K/uL Sodium 137 (136-145) mmol/L Potassium 4.2 (3.5-5.1) mmol/L Chloride 104 (98-107) mmol/L Carbon Dioxide 25.6 (21.0-32.0) mmol/L BUN 15 (7.0-18.0) mg/dL Creatinine 0.8 (0.6-1.0) mg/dL Est Cr Clr Drug Dosing 70.66 mL/min Estimated GFR (MDRD) > 60.0 ml/min Glucose 199 H (74-106) mg/dL POC Glucose 170 H (70-99) mg/dL Calcium 8.7 (8.5-10.1) mg/dL Magnesium 1.8 (1.8-2.4) mg/dL Med Orders - Current: Current Medications Acetaminophen (Acetaminophen 325 Mg Tab) 650 mg PO Q4H PRN PRN Reason: Pain (Mild 1-3)/fever Last Admin: 09/13/20 10:22 Dose: 650 mg Documented by: Atorvastatin Calcium (Atorvastatin 20 Mg Tab) 20 mg PO BEDTIME МАРИНА Last Admin: 09/14/20 20:46 Dose: 20 mg Documented by: Al Hydroxide/Mg Hydroxide 15 (ml/ Lidocaine HCl 5 ml) 0 ml PO Q8H PRN PRN Reason: GI pain Last Admin: 09/14/20 11:37 Dose: 20 each Documented by: Dextrose/Water (50% Dextrose In Water 50 Ml Syringe) 50 ml IV ASDIRECTED PRN PRN Reason: Hypoglycemia Docusate Sodium (Docusate Sodium 100 Mg Cap) 100 mg PO BID PRN PRN Reason: Constipation Duloxetine HCl (Duloxetine 30 Mg Cap) 30 mg PO DAILY [facility] Last Admin: 09/14/20 09:33 Dose: 30 mg Documented by: Enoxaparin Sodium (Enoxaparin 40 Mg/0.4 Ml Syringe) 40 mg SUBCUT Q24H [facility] Last Admin: 09/14/20 15:37 Dose: 40 mg Documented by: Gabapentin (Gabapentin 300 Mg Cap) 300 mg PO DAILY [facility] Last Admin: 09/14/20 09:32 Dose: 300 mg Documented by: Glucagon (Glucagon,Human Recombinant 1 Mg Vial) 1 mg IM ASDIRECTED PRN PRN Reason: Hypoglycemia Piperacillin Sod/Tazobactam (Sod 4.5 gm/ Sodium Chloride) 100 mls @ 25 mls/hr IV Q6H [facility] Last Admin: 09/15/20 06:15 Dose: 100 mls/hr Documented by: Pantoprazole Sodium 40 mg/ (Sodium Chloride) 10 mls @ 300 mls/hr IV Q24H [facility] Last Admin: 09/15/20 06:08 Dose: 300 mls/hr Documented by: Insulin Aspart (Insulin Aspart 100 Units/Ml 3 Ml Pen) 0 unit SUBCUT TIDAC [facility]; Protocol Last Admin: 09/15/20 07:37 Dose: 3 units Documented by: Insulin Human NPH (Insulin Isophane Nph, Human 100 Units/Ml 10 Ml Vial) 20 unit SUBCUT BIDAC [facility] Last Admin: 09/15/20 07:39 Dose: 20 units Documented by: Morphine Sulfate (Morphine 2 Mg/Ml Syringe) 2 mg IVPUSH Q2H PRN PRN Reason: Pain (severe 7-10) Last Admin: 09/13/20 16:11 Dose: 2 mg Documented by: Ondansetron HCl (Ondansetron 4 Mg/2 Ml Sdv) 4 mg IVPUSH Q4H PRN PRN Reason: Nausea Oxycodone HCl (Oxycodone 5 Mg Tab) 5 mg PO Q4H PRN PRN Reason: Pain (moderate 4-6) Last Admin: 09/13/20 13:56 Dose: 5 mg Documented by: Sodium Chloride (Sodium Chloride 0.9% 2.5 Ml Syringe) 2.5 ml FLUSH ASDIRECTED PRN PRN Reason: Keep Vein Open Sucralfate (Sucralfate Suspension 1 Gm/10 Ml Cup) 1 gm PO QIDACANDBED МАРИНА Last Admin: 09/15/20 06:52 Dose: Not Given Documented by: Discontinued Medications Bacitracin (Bacitracin Oint 28.35 Gm Tube) 1 gm TOP ONETIME ONE Stop: 09/10/20 12:41 Last Admin: 09/10/20 12:58 Dose: 1 applicful Documented by: Bupivacaine HCl (Bupivacaine 0.5% 10 Ml Sdv) Confirm Administered Dose 10 ml .ROUTE .STK-MED ONE Stop: 09/08/20 16:48 Al Hydroxide/Mg Hydroxide 15 (ml/ Lidocaine HCl 5 ml) 0 ml PO ONETIME ONE Stop: 09/13/20 11:01 Last Admin: 09/13/20 12:01 Dose: 5 each Documented by: Al Hydroxide/Mg Hydroxide 15 ml/ Metoclopramide HCl 5 mg/Lidocaine HCl 5 ml 0 ml PO ONETIME ONE Stop: 09/13/20 14:46 Last Admin: 09/13/20 15:00 Dose: 10 each Documented by: Famotidine (Famotidine 20 Mg/2 Ml Sdv) 40 mg IVPUSH ONETIME ONE Stop: 09/08/20 14:04 Last Admin: 09/08/20 14:25 Dose: 40 mg Documented by: Fentanyl (Fentanyl 100 Mcg/2 Ml Sdv) Confirm Administered Dose 100 mcg .ROUTE .STK-MED ONE Stop: 09/08/20 17:33 Gadobenate Dimeglumine (Gadobenate Dimeglumine 529 Mg/Ml 20 Ml Sdv) 20 ml IV PUSH ONETIME STA Stop: 09/08/20 07:38 Last Admin: 09/08/20 07:39 Dose: 20 ml Documented by: Gadobenate Dimeglumine (Gadobenate Dimeglumine 529 Mg/Ml 20 Ml Sdv) 20 ml IVPUSH ONETIME STA Stop: 09/12/20 07:26 Last Admin: 09/12/20 07:27 Dose: 20 ml Documented by: Sodium Chloride (Normal Saline) 1,000 mls @ 999 mls/hr IV .Bolus ONE Stop: 09/07/20 12:43 Last Admin: 09/07/20 12:25 Dose: 999 mls/hr Documented by: Vancomycin HCl 1,500 mg/ (Sodium Chloride) 100 mls @ 100 mls/hr IV ONETIME ONE Stop: 09/07/20 12:42 Last Admin: 09/07/20 13:22 Dose: Not Given Documented by: Piperacillin Sod/Tazobactam (Sod 3.375 gm/ Sodium Chloride) 50 mls @ 100 mls/hr IV ONETIME ONE Stop: 09/07/20 12:12 Last Admin: 09/07/20 12:27 Dose: 100 mls/hr Documented by: Magnesium Sulfate 2 gm/ Premix 50 mls @ 50 mls/hr IV ONETIME ONE Stop: 09/07/20 13:51 Last Admin: 09/07/20 14:00 Dose: 50 mls/hr Documented by: Vancomycin HCl 1.5 gm/ Premix 300 mls @ 200 mls/hr IV ONETIME ONE Stop: 09/07/20 14:50 Last Admin: 09/07/20 14:00 Dose: 200 mls/hr Documented by: Sodium Chloride (Normal Saline) 1,000 mls @ 125 mls/hr IV Q8H [facility] Last Admin: 09/09/20 13:43 Dose: Not Given Documented by: Piperacillin Sod/Tazobactam (Sod 4.5 gm/ Sodium Chloride) 100 mls @ 100 mls/hr IV Q8H [facility] Last Admin: 09/08/20 04:29 Dose: 100 mls/hr Documented by: Vancomycin HCl 1.5 gm/ Premix 300 mls @ 200 mls/hr IV Q12H [facility] Stop: 09/09/20 16:00 Last Admin: 09/09/20 14:20 Dose: 200 mls/hr Documented by: Piperacillin Sod/Tazobactam (Sod 4.5 gm/ Sodium Chloride) 100 mls @ 100 mls/hr IV Q6H [facility] Last Admin: 09/10/20 09:39 Dose: 100 mls/hr Documented by: Vancomycin HCl 1.5 gm/ Premix 300 mls @ 200 mls/hr IV Q8H [facility] Last Admin: 09/10/20 05:09 Dose: 200 mls/hr Documented by: Magnesium Sulfate (Magnesium Sulfate In Water 2 Gm/50 Ml) 2 gm in 50 mls @ 50 mls/hr IV ONETIME ONE Stop: 09/10/20 11:59 Last Admin: 09/10/20 12:59 Dose: 50 mls/hr Documented by: Cefazolin Sodium/Dextrose 2 gm (/ Premix) 50 mls @ 100 mls/hr IV Q8H [facility] Last Admin: 09/12/20 10:40 Dose: 100 mls/hr Documented by: Magnesium Sulfate (Magnesium Sulfate In Water 2 Gm/50 Ml) 2 gm in 50 mls @ 50 mls/hr IV ONETIME ONE Stop: 09/11/20 11:44 Last Admin: 09/11/20 11:41 Dose: 50 mls/hr Documented by: Magnesium Sulfate (Magnesium Sulfate In Water 2 Gm/50 Ml) 2 gm in 50 mls @ 50 mls/hr IV ONETIME ONE Stop: 09/12/20 09:28 Last Admin: 09/12/20 09:27 Dose: 50 mls/hr Documented by: Magnesium Sulfate (Magnesium Sulfate In Water 4 Gm/100 Ml) 4 gm in 100 mls @ 50 mls/hr IV ONETIME ONE Stop: 09/13/20 10:29 Last Admin: 09/13/20 09:10 Dose: 50 mls/hr Documented by: Pantoprazole Sodium 40 mg/ (Sodium Chloride) 10 mls @ 300 mls/hr IV NOW ONE Stop: 09/13/20 14:16 Last Admin: 09/13/20 14:28 Dose: 300 mls/hr Documented by: Iopamidol (Iopamidol 755 Mg/Ml 500 Ml Multipack Bottle) 50 ml IVPUSH ONETIME STA Stop: 09/13/20 17:59 Last Admin: 09/13/20 17:59 Dose: 50 ml Documented by: Lidocaine HCl (Lidocaine 1% 20 Ml Mdv) Confirm Administered Dose 20 ml .ROUTE .STK-MED ONE Stop: 09/08/20 16:48 Lisinopril (Lisinopril 10 Mg Tab) 20 mg PO BID [facility] Last Admin: 09/13/20 21:30 Dose: Not Given Documented by: Metoclopramide HCl (Metoclopramide 10 Mg/2 Ml Sdv) 10 mg IVPUSH ONETIME ONE Stop: 09/08/20 14:06 Last Admin: 09/08/20 14:25 Dose: 10 mg Documented by: Midazolam HCl (Midazolam 1 Mg/Ml 2 Ml Sdv) Confirm Administered Dose 2 mg .ROUTE .STK-MED ONE Stop: 09/08/20 17:33 Morphine Sulfate (Morphine 2 Mg/Ml Syringe) 2 mg IVPUSH ONETIME ONE Stop: 09/13/20 14:13 Last Admin: 09/13/20 14:32 Dose: Not Given Documented by: Ondansetron HCl (Ondansetron 4 Mg/2 Ml Sdv) Confirm Administered Dose 4 mg .ROUTE .STK-MED ONE Stop: 09/07/20 13:59 Last Admin: 09/07/20 14:03 Dose: Not Given Documented by: Ondansetron HCl (Ondansetron 4 Mg/2 Ml Sdv) 4 mg IVPUSH ONETIME ONE Stop: 09/07/20 14:01 Last Admin: 09/07/20 14:03 Dose: 4 mg Documented by: Oxycodone/Acetaminophen (Acetaminophen/Oxycodone 325-5 Mg Tab) 2 tab PO ONETIME ONE Stop: 09/07/20 11:44 Last Admin: 09/07/20 12:25 Dose: 2 tab Documented by: Pantoprazole Sodium (Pantoprazole 40 Mg Tab.Cr) 40 mg PO DAILY [facility] Last Admin: 09/13/20 11:32 Dose: 40 mg Documented by: Sodium Chloride (Sodium Chloride 0.9% 10 Ml Syringe) 10 ml FLUSH ASDIRECTED PRN PRN Reason: Keep Vein Open Last Admin: 09/07/20 12:27 Dose: 10 ml Documented by: Sodium Chloride (Sodium Chloride 0.9% 2.5 Ml Syringe) 2.5 ml FLUSH ASDIRECTED PRN PRN Reason: Keep Vein Open Last Admin: 09/07/20 12:27 Dose: 2.5 ml Documented by: Vancomycin HCl (Pharmacy To Dose - Vancomycin) 1 dose .XX ASDIRECTED МАРИНА - Exam General: Alert, Oriented, Cooperative, No Acute Distress Neck: Supple Lungs: Clear to Auscultation, Normal Respiratory Effort Cardiovascular: Regular Rate, Regular Rhythm GI/Abdominal Exam: Normal Bowel Sounds, Soft, Non-Tender Extremities: Normal Inspection, Normal Range of Motion, Non-Tender, No Pedal Edema Wound/Incisions: Drainage (Scant drainage to right foot wound. Erythema significantly improved. Scant purulent drainage noted to packing otherwise overall significantly improved) Psy/Mental Status: Alert, Normal Affect, Normal Mood - Patient Data Lab Results Last 24 hrs: Laboratory Results - last 24 hr 09/14/20 09/14/20 09/15/20 Range/Units 11:45 17:23 06:15 WBC 10.49 (4.0-11.0) K/uL RBC 3.89 L (4.30-5.90) M/uL Hgb 12.2 (12.0-16.0) g/dL Hct 36.5 (36.0-46.0) % MCV 93.8 (80.0-98.0) fL MCH 31.4 (27.0-32.0) pg MCHC 33.4 (31.0-37.0) g/dL RDW Std Deviation 42.2 (28.0-62.0) fl RDW Coeff of [place] 13 (11.0-15.0) % Plt Count 299 (150-400) K/uL MPV 10.40 (7.40-12.00) fL Neut % (Auto) 64.2 (48.0-80.0) % Lymph % (Auto) 21.9 (16.0-40.0) % [place] % (Auto) 10.6 (0.0-15.0) % Eos % (Auto) 3.1 (0.0-7.0) % Baso % (Auto) 0.2 (0.0-1.5) % Neut # (Auto) 6.7 H (1.4-5.7) K/uL Lymph # (Auto) 2.3 (0.6-2.4) K/uL [place] # (Auto) 1.1 H (0.0-0.8) K/uL Eos # (Auto) 0.3 (0.0-0.7) K/uL Baso # (Auto) 0.0 (0.0-0.1) K/uL Nucleated RBC % 0.0 /100WBC Nucleated RBCs # 0 K/uL Sodium (136-145) mmol/L Potassium (3.5-5.1) mmol/L Chloride (98-107) mmol/L Carbon Dioxide (21.0-32.0) mmol/L BUN (7.0-18.0) mg/dL Creatinine (0.6-1.0) mg/dL Est Cr Clr Drug Dosing mL/min Estimated GFR (MDRD) ml/min Glucose (74-106) mg/dL POC Glucose 222 H 221 H (70-99) mg/dL Calcium (8.5-10.1) mg/dL Magnesium (1.8-2.4) mg/dL 09/15/20 09/15/20 Range/Units 06:15 06:26 WBC (4.0-11.0) K/uL RBC (4.30-5.90) M/uL Hgb (12.0-16.0) g/dL Hct (36.0-46.0) % MCV (80.0-98.0) fL MCH (27.0-32.0) pg MCHC (31.0-37.0) g/dL RDW Std Deviation (28.0-62.0) fl RDW Coeff of [place] (11.0-15.0) % Plt Count (150-400) K/uL MPV (7.40-12.00) fL Neut % (Auto) (48.0-80.0) % Lymph % (Auto) (16.0-40.0) % [place] % (Auto) (0.0-15.0) % Eos % (Auto) (0.0-7.0) % Baso % (Auto) (0.0-1.5) % Neut # (Auto) (1.4-5.7) K/uL Lymph # (Auto) (0.6-2.4) K/uL [place] # (Auto) (0.0-0.8) K/uL Eos # (Auto) (0.0-0.7) K/uL Baso # (Auto) (0.0-0.1) K/uL Nucleated RBC % /100WBC Nucleated RBCs # K/uL Sodium 137 (136-145) mmol/L Potassium 4.2 (3.5-5.1) mmol/L Chloride 104 (98-107) mmol/L Carbon Dioxide 25.6 (21.0-32.0) mmol/L BUN 15 (7.0-18.0) mg/dL Creatinine 0.8 (0.6-1.0) mg/dL Est Cr Clr Drug Dosing 70.66 mL/min Estimated GFR (MDRD) > 60.0 ml/min Glucose 199 H (74-106) mg/dL POC Glucose 170 H (70-99) mg/dL Calcium 8.7 (8.5-10.1) mg/dL Magnesium 1.8 (1.8-2.4) mg/dL Result Diagrams: 09/15/20 06:15 09/15/20 06:15 Sepsis Event Note - Evaluation Sepsis Screening Result: No Definite Risk - Focused Exam Vital Signs: Vital Signs Temp Pulse Resp BP BP Pulse Ox 09/15/20 06:55 98.3 F 84 14 144/79 H 94 L 09/15/20 04:31 98 F 87 20 134/79 94 L 09/15/20 00:30 97.9 F 88 20 116/53 L 93 L - Problem List & Annotations (1) Obesity SNOMED Code(s): 968747838, 386791099 Code(s): E66.9 - OBESITY, UNSPECIFIED Status: Chronic Current Visit: Yes (2) Neuropathy SNOMED Code(s): 955879378 Code(s): G62.9 - POLYNEUROPATHY, UNSPECIFIED Status: Chronic Current Visit: No (3) Hypertension SNOMED Code(s): 65880876 Code(s): I10 - ESSENTIAL (PRIMARY) HYPERTENSION Status: Chronic Current Visit: No (4) Diabetic ulcer of foot associated with diabetes mellitus due to underlying condition, limited to breakdown of skin SNOMED Code(s): 125671419, 280896797 Code(s): E08.621 - DIABETES MELLITUS DUE TO UNDERLYING CONDITION W FOOT ULCER; L97.501 - NON-PRS CHR ULCER OTH PRT UNSP FOOT LIMITED TO BRKDWN SKIN Status: Acute Current Visit: Yes Qualifiers: Diabetic foot ulcer location: unspecified part of foot Laterality: right Qualified Code(s): E08.621 - Diabetes mellitus due to underlying condition with foot ulcer; L97.511 - Non-pressure chronic ulcer of other part of right foot limited to breakdown of skin (5) Hyperlipemia SNOMED Code(s): 50901957 Code(s): E78.5 - HYPERLIPIDEMIA, UNSPECIFIED Status: Chronic Current Visit: No (6) Hypomagnesemia SNOMED Code(s): 232592830 Code(s): E83.42 - HYPOMAGNESEMIA Status: Acute Current Visit: Yes - Problem List Review Problem List Initiated/Reviewed/Updated: Yes - My Orders Last 24 Hours: My Active Orders 09/14/20 07:00 Pantoprazole [ProTONIX IV] 40 mg Sodium Chloride 0.9% [Normal Saline] 10 ml IV Q24H 09/14/20 10:45 Alum Hydrox/Mag Hydrox/Simeth [Mag-Al Plus] 15 ml Lidocaine 2% [Xylocaine 2% Viscous] 5 ml PO Q8H 09/14/20 11:30 Sucralfate [Carafate] 1 gm PO QIDACANDBED 09/16/20 05:11 BASIC METABOLIC PANEL,BMP [CHEM] AM CBC WITH AUTO DIFF [HEME] AM MAGNESIUM [CHEM] AM - Plan Plan:: This 55-year-old female admitted with cellulitis and right foot diabetic ulcer. 1. Cellulitis/right foot diabetic ulcer -Cultures are growing MSSA , anaerobic culture growing potential organism. Did contact microbiology today they are waiting anaerobic cultures from outside lab. Hopefully later today or in the morning they have returned. -Continue Zosyn 4.5 gm will extend to have continuous infusion. -MRI repeat shows progression bone marrow edema. questionable osteo and/or sep tic arthritis. 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 patient is aware and agreeable with plan. -Dr. Pete on consult, appreciate his recommendations. Plan for wound VAC as an outpatient in Dr. Pete's clinic - Continue wound care per Dr Pete instructions. -PICC line is set for Saturday likely discharge Saturday to immediately have PICC line if and when cultures are finalized. 2. DM type II, uncontrolled -Blood sugar checks 3 times daily before meals and as needed -NovoLog sliding scale insulin with meals -Continue Novolin H 20 units twice daily -ADA diet 3. Hypertension/HLD -Lisinopril -Continue statin 4. GERD history esophageal ulcer -Continue Protonix -Continue Carafate with meals and at bedtime -GI cocktail as needed -Keep diet light. VTE prophylaxis: Lovenox CODE STATUS: Full code Dispo: Discharge pending anaerobic cultures. PICC line scheduled for Saturday in [facility].
[2020-09-15] MEDS: Gabapentin 300 MG Cap PO SCH (09:24)
[2020-09-15] MEDS: DULoxetine 30 MG Cap PO SCH (09:24)
--- NOTE | 2020-09-15 14:28 | PCM.CONSN ---
- General Info Date of Service: 09/15/20 Admission Dx/Problem (Free Text): Admission Diagnosis/Problem Admission Diagnosis/Problem Diabetic foot ulcer Subjective Update: Continues to do well today. Awaiting culture results. Wound vac pending. - Patient Data Vitals - Most Recent: Last Vital Signs Temp 36.7 C 09/15/20 12:00 Pulse 70 09/15/20 12:00 Resp 14 09/15/20 12:00 BP 148/84 H 09/15/20 12:00 Pulse Ox 96 09/15/20 12:00 Weight - Most Recent: 102.965 kg I&O - Last 24 Hours: Intake & Output 09/14/20 09/15/20 09/15/20 22:59 06:59 14:59 Intake Total 1500 750 Output Total 1050 900 Balance 450 -150 Lab Results Last 24 Hours: Laboratory Results - last 24 hr 09/14/20 09/15/20 09/15/20 Range/Units 17:23 06:15 06:15 WBC 10.49 (4.0-11.0) K/uL RBC 3.89 L (4.30-5.90) M/uL Hgb 12.2 (12.0-16.0) g/dL Hct 36.5 (36.0-46.0) % MCV 93.8 (80.0-98.0) fL MCH 31.4 (27.0-32.0) pg MCHC 33.4 (31.0-37.0) g/dL RDW Std Deviation 42.2 (28.0-62.0) fl RDW Coeff of [place] 13 (11.0-15.0) % Plt Count 299 (150-400) K/uL MPV 10.40 (7.40-12.00) fL Neut % (Auto) 64.2 (48.0-80.0) % Lymph % (Auto) 21.9 (16.0-40.0) % [place] % (Auto) 10.6 (0.0-15.0) % Eos % (Auto) 3.1 (0.0-7.0) % Baso % (Auto) 0.2 (0.0-1.5) % Neut # (Auto) 6.7 H (1.4-5.7) K/uL Lymph # (Auto) 2.3 (0.6-2.4) K/uL [place] # (Auto) 1.1 H (0.0-0.8) K/uL Eos # (Auto) 0.3 (0.0-0.7) K/uL Baso # (Auto) 0.0 (0.0-0.1) K/uL Nucleated RBC % 0.0 /100WBC Nucleated RBCs # 0 K/uL Sodium 137 (136-145) mmol/L Potassium 4.2 (3.5-5.1) mmol/L Chloride 104 (98-107) mmol/L Carbon Dioxide 25.6 (21.0-32.0) mmol/L BUN 15 (7.0-18.0) mg/dL Creatinine 0.8 (0.6-1.0) mg/dL Est Cr Clr Drug Dosing 70.66 mL/min Estimated GFR (MDRD) > 60.0 ml/min Glucose 199 H (74-106) mg/dL POC Glucose 221 H (70-99) mg/dL Calcium 8.7 (8.5-10.1) mg/dL Magnesium 1.8 (1.8-2.4) mg/dL 09/15/20 09/15/20 Range/Units 06:26 12:00 WBC (4.0-11.0) K/uL RBC (4.30-5.90) M/uL Hgb (12.0-16.0) g/dL Hct (36.0-46.0) % MCV (80.0-98.0) fL MCH (27.0-32.0) pg MCHC (31.0-37.0) g/dL RDW Std Deviation (28.0-62.0) fl RDW Coeff of [place] (11.0-15.0) % Plt Count (150-400) K/uL MPV (7.40-12.00) fL Neut % (Auto) (48.0-80.0) % Lymph % (Auto) (16.0-40.0) % [place] % (Auto) (0.0-15.0) % Eos % (Auto) (0.0-7.0) % Baso % (Auto) (0.0-1.5) % Neut # (Auto) (1.4-5.7) K/uL Lymph # (Auto) (0.6-2.4) K/uL [place] # (Auto) (0.0-0.8) K/uL Eos # (Auto) (0.0-0.7) K/uL Baso # (Auto) (0.0-0.1) K/uL Nucleated RBC % /100WBC Nucleated RBCs # K/uL Sodium (136-145) mmol/L Potassium (3.5-5.1) mmol/L Chloride (98-107) mmol/L Carbon Dioxide (21.0-32.0) mmol/L BUN (7.0-18.0) mg/dL Creatinine (0.6-1.0) mg/dL Est Cr Clr Drug Dosing mL/min Estimated GFR (MDRD) ml/min Glucose (74-106) mg/dL POC Glucose 170 H 173 H (70-99) mg/dL Calcium (8.5-10.1) mg/dL Magnesium (1.8-2.4) mg/dL Med Orders - Current: Current Medications Acetaminophen (Acetaminophen 325 Mg Tab) 650 mg PO Q4H PRN PRN Reason: Pain (Mild 1-3)/fever Last Admin: 09/13/20 10:22 Dose: 650 mg Documented by: Atorvastatin Calcium (Atorvastatin 20 Mg Tab) 20 mg PO BEDTIME [facility] Last Admin: 09/14/20 20:46 Dose: 20 mg Documented by: Al Hydroxide/Mg Hydroxide 15 (ml/ Lidocaine HCl 5 ml) 0 ml PO Q8H PRN PRN Reason: GI pain Last Admin: 09/14/20 11:37 Dose: 20 each Documented by: Dextrose/Water (50% Dextrose In Water 50 Ml Syringe) 50 ml IV ASDIRECTED PRN PRN Reason: Hypoglycemia Docusate Sodium (Docusate Sodium 100 Mg Cap) 100 mg PO BID PRN PRN Reason: Constipation Duloxetine HCl (Duloxetine 30 Mg Cap) 30 mg PO DAILY [facility] Last Admin: 09/15/20 09:24 Dose: 30 mg Documented by: Enoxaparin Sodium (Enoxaparin 40 Mg/0.4 Ml Syringe) 40 mg SUBCUT Q24H [facility] Last Admin: 09/14/20 15:37 Dose: 40 mg Documented by: Gabapentin (Gabapentin 300 Mg Cap) 300 mg PO DAILY [facility] Last Admin: 09/15/20 09:24 Dose: 300 mg Documented by: Glucagon (Glucagon,Human Recombinant 1 Mg Vial) 1 mg IM ASDIRECTED PRN PRN Reason: Hypoglycemia Piperacillin Sod/Tazobactam (Sod 4.5 gm/ Sodium Chloride) 100 mls @ 25 mls/hr IV Q6H [facility] Last Admin: 09/15/20 12:03 Dose: 100 mls/hr Documented by: Pantoprazole Sodium 40 mg/ (Sodium Chloride) 10 mls @ 300 mls/hr IV Q24H [facility] Last Admin: 09/15/20 06:08 Dose: 300 mls/hr Documented by: Insulin Aspart (Insulin Aspart 100 Units/Ml 3 Ml Pen) 0 unit SUBCUT TIDAC [facility]; Protocol Last Admin: 09/15/20 12:29 Dose: 3 units Documented by: Insulin Human NPH (Insulin Isophane Nph, Human 100 Units/Ml 10 Ml Vial) 20 unit SUBCUT BIDAC [facility] Last Admin: 09/15/20 07:39 Dose: 20 units Documented by: Morphine Sulfate (Morphine 2 Mg/Ml Syringe) 2 mg IVPUSH Q2H PRN PRN Reason: Pain (severe 7-10) Last Admin: 09/13/20 16:11 Dose: 2 mg Documented by: Ondansetron HCl (Ondansetron 4 Mg/2 Ml Sdv) 4 mg IVPUSH Q4H PRN PRN Reason: Nausea Oxycodone HCl (Oxycodone 5 Mg Tab) 5 mg PO Q4H PRN PRN Reason: Pain (moderate 4-6) Last Admin: 09/13/20 13:56 Dose: 5 mg Documented by: Sodium Chloride (Sodium Chloride 0.9% 2.5 Ml Syringe) 2.5 ml FLUSH ASDIRECTED PRN PRN Reason: Keep Vein Open Sucralfate (Sucralfate Suspension 1 Gm/10 Ml Cup) 1 gm PO QIDACANDBED [facility] Last Admin: 09/15/20 11:42 Dose: 1 gm Documented by: Discontinued Medications Bacitracin (Bacitracin Oint 28.35 Gm Tube) 1 gm TOP ONETIME ONE Stop: 09/10/20 12:41 Last Admin: 09/10/20 12:58 Dose: 1 applicful Documented by: Bupivacaine HCl (Bupivacaine 0.5% 10 Ml Sdv) Confirm Administered Dose 10 ml .ROUTE .STK-MED ONE Stop: 09/08/20 16:48 Al Hydroxide/Mg Hydroxide 15 (ml/ Lidocaine HCl 5 ml) 0 ml PO ONETIME ONE Stop: 09/13/20 11:01 Last Admin: 09/13/20 12:01 Dose: 5 each Documented by: Al Hydroxide/Mg Hydroxide 15 ml/ Metoclopramide HCl 5 mg/Lidocaine HCl 5 ml 0 ml PO ONETIME ONE Stop: 09/13/20 14:46 Last Admin: 09/13/20 15:00 Dose: 10 each Documented by: Famotidine (Famotidine 20 Mg/2 Ml Sdv) 40 mg IVPUSH ONETIME ONE Stop: 09/08/20 14:04 Last Admin: 09/08/20 14:25 Dose: 40 mg Documented by: Fentanyl (Fentanyl 100 Mcg/2 Ml Sdv) Confirm Administered Dose 100 mcg .ROUTE .STK-MED ONE Stop: 09/08/20 17:33 Gadobenate Dimeglumine (Gadobenate Dimeglumine 529 Mg/Ml 20 Ml Sdv) 20 ml IVPUSH ONETIME STA Stop: 09/08/20 07:38 Last Admin: 09/08/20 07:39 Dose: 20 ml Documented by: Gadobenate Dimeglumine (Gadobenate Dimeglumine 529 Mg/Ml 20 Ml Sdv) 20 ml IVPUSH ONETIME STA Stop: 09/12/20 07:26 Last Admin: 09/12/20 07:27 Dose: 20 ml Documented by: Sodium Chloride (Normal Saline) 1,000 mls @ 999 mls/hr IV .Bolus ONE Stop: 09/07/20 12:43 Last Admin: 09/07/20 12:25 Dose: 999 mls/hr Documented by: Vancomycin HCl 1,500 mg/ (Sodium Chloride) 100 mls @ 100 mls/hr IV ONETIME ONE Stop: 09/07/20 12:42 Last Admin: 09/07/20 13:22 Dose: Not Given Documented by: Piperacillin Sod/Tazobactam (Sod 3.375 gm/ Sodium Chloride) 50 mls @ 100 mls/hr IV ONETIME ONE Stop: 09/07/20 12:12 Last Admin: 09/07/20 12:27 Dose: 100 mls/hr Documented by: Magnesium Sulfate 2 gm/ Premix 50 mls @ 50 mls/hr IV ONETIME ONE Stop: 09/07/20 13:51 Last Admin: 09/07/20 14:00 Dose: 50 mls/hr Documented by: Vancomycin HCl 1.5 gm/ Premix 300 mls @ 200 mls/hr IV ONETIME ONE Stop: 09/07/20 14:50 Last Admin: 09/07/20 14:00 Dose: 200 mls/hr Documented by: Sodium Chloride (Normal Saline) 1,000 mls @ 125 mls/hr IV Q8H [facility] Last Admin: 09/09/20 13:43 Dose: Not Given Documented by: Piperacillin Sod/Tazobactam (Sod 4.5 gm/ Sodium Chloride) 100 mls @ 100 mls/hr IV Q8H [facility] Last Admin: 09/08/20 04:29 Dose: 100 mls/hr Documented by: Vancomycin HCl 1.5 gm/ Premix 300 mls @ 200 mls/hr IV Q12H [facility] Stop: 09/09/20 16:00 Last Admin: 09/09/20 14:20 Dose: 200 mls/hr Documented by: Piperacillin Sod/Tazobactam (Sod 4.5 gm/ Sodium Chloride) 100 mls @ 100 mls/hr IV Q6H [facility] Last Admin: 09/10/20 09:39 Dose: 100 mls/hr Documented by: Vancomycin HCl 1.5 gm/ Premix 300 mls @ 200 mls/hr IV Q8H [facility] Last Admin: 09/10/20 05:09 Dose: 200 mls/hr Documented by: Magnesium Sulfate (Magnesium Sulfate In Water 2 Gm/50 Ml) 2 gm in 50 mls @ 50 mls/hr IV ONETIME ONE Stop: 09/10/20 11:59 Last Admin: 09/10/20 12:59 Dose: 50 mls/hr Documented by: Cefazolin Sodium/Dextrose 2 gm (/ Premix) 50 mls @ 100 mls/hr IV Q8H [facility] Last Admin: 09/12/20 10:40 Dose: 100 mls/hr Documented by: Magnesium Sulfate (Magnesium Sulfate In Water 2 Gm/50 Ml) 2 gm in 50 mls @ 50 mls/hr IV ONETIME ONE Stop: 09/11/20 11:44 Last Admin: 09/11/20 11:41 Dose: 50 mls/hr Documented by: Magnesium Sulfate (Magnesium Sulfate In Water 2 Gm/50 Ml) 2 gm in 50 mls @ 50 mls/hr IV ONETIME ONE Stop: 09/12/20 09:28 Last Admin: 09/12/20 09:27 Dose: 50 mls/hr Documented by: Magnesium Sulfate (Magnesium Sulfate In Water 4 Gm/100 Ml) 4 gm in 100 mls @ 50 mls/hr IV ONETIME ONE Stop: 09/13/20 10:29 Last Admin: 09/13/20 09:10 Dose: 50 mls/hr Documented by: Pantoprazole Sodium 40 mg/ (Sodium Chloride) 10 mls @ 300 mls/hr IV NOW ONE Stop: 09/13/20 14:16 Last Admin: 09/13/20 14:28 Dose: 300 mls/hr Documented by: Iopamidol (Iopamidol 755 Mg/Ml 500 Ml Multipack Bottle) 50 ml IVPUSH ONETIME STA Stop: 09/13/20 17:59 Last Admin: 09/13/20 17:59 Dose: 50 ml Documented by: Lidocaine HCl (Lidocaine 1% 20 Ml Mdv) Confirm Administered Dose 20 ml .ROUTE .STK-MED ONE Stop: 09/08/20 16:48 Lisinopril (Lisinopril 10 Mg Tab) 20 mg PO BID МАРИНА Last Admin: 09/13/20 21:30 Dose: Not Given Documented by: Metoclopramide HCl (Metoclopramide 10 Mg/2 Ml Sdv) 10 mg IVPUSH ONETIME ONE Stop: 09/08/20 14:06 Last Admin: 09/08/20 14:25 Dose: 10 mg Documented by: Midazolam HCl (Midazolam 1 Mg/Ml 2 Ml Sdv) Confirm Administered Dose 2 mg .ROUTE .STK-MED ONE Stop: 09/08/20 17:33 Morphine Sulfate (Morphine 2 Mg/Ml Syringe) 2 mg IVPUSH ONETIME ONE Stop: 09/13/20 14:13 Last Admin: 09/13/20 14:32 Dose: Not Given Documented by: Ondansetron HCl (Ondansetron 4 Mg/2 Ml Sdv) Confirm Administered Dose 4 mg .ROUTE .STK-MED ONE Stop: 09/07/20 13:59 Last Admin: 09/07/20 14:03 Dose: Not Given Documented by: Ondansetron HCl (Ondansetron 4 Mg/2 Ml Sdv) 4 mg IVPUSH ONETIME ONE Stop: 09/07/20 14:01 Last Admin: 09/07/20 14:03 Dose: 4 mg Documented by: Oxycodone/Acetaminophen (Acetaminophen/Oxycodone 325-5 Mg Tab) 2 tab PO ONETIME ONE Stop: 09/07/20 11:44 Last Admin: 09/07/20 12:25 Dose: 2 tab Documented by: Pantoprazole Sodium (Pantoprazole 40 Mg Tab.Cr) 40 mg PO DAILY МАРИНА Last Admin: 09/13/20 11:32 Dose: 40 mg Documented by: Sodium Chloride (Sodium Chloride 0.9% 10 Ml Syringe) 10 ml FLUSH ASDIRECTED PRN PRN Reason: Keep Vein Open Last Admin: 09/07/20 12:27 Dose: 10 ml Documented by: Sodium Chloride (Sodium Chloride 0.9% 2.5 Ml Syringe) 2.5 ml FLUSH ASDIRECTED PRN PRN Reason: Keep Vein Open Last Admin: 09/07/20 12:27 Dose: 2.5 ml Documented by: Vancomycin HCl (Pharmacy To Dose - Vancomycin) 1 dose .XX ASDIRECTED МАРИНА - Exam Peripheral Pulses: 1+: Posterior Tibial (L), Posterior Tibial (R), Dorsalis Pedis (L), Dorsalis Pedis (R) Skin: Warm Wound/Incisions: Drainage (dorsal 1st web space right foot ulcer measures 3.1 cm proximal to distal, 1.5 cm medial to lateral and 1.5 cm depth, ulcer to sub 2nd metatarsal head area measures 0.5 cm diameter and 1.5 cm depth, minimal drainage, purulence is not seen) Sepsis Event Note - Evaluation Sepsis Screening Result: No Definite Risk - Focused Exam Vital Signs: Vital Signs Temp Pulse Resp BP BP Pulse Ox 09/15/20 12:00 36.7 C 70 14 148/84 H 96 09/15/20 07:00 36.8 C 84 14 144/79 H 94 L 09/15/20 04:31 36.6 C 87 20 134/79 94 L Consult PN Assessment/Plan Procedures: Procedures ASSAY OF CK (CPK) (08/24/20) ASSAY OF LACTIC ACID (08/24/20) ASSAY OF MAGNESIUM (08/16/20) ASSAY OF PHOSPHORUS (08/16/20) ASSAY OF VANCOMYCIN (08/24/20) BLOOD CULTURE FOR BACTERIA (08/24/20) C-REACTIVE PROTEIN (08/24/20) COMPLETE CBC W/AUTO DIFF WBC (08/24/20) COMPREHEN METABOLIC PANEL (08/24/20) CT LOWER EXTREMITY W/O DYE (08/24/20) EMERGENCY DEPT VISIT (08/24/20) EXTREMITY STUDY (08/16/20) GLUCOSE BLOOD TEST (08/24/20) GLYCOSYLATED HEMOGLOBIN TEST (08/24/20) METABOLIC PANEL TOTAL CA (08/24/20) PT EVAL LOW COMPLEX 20 MIN (08/24/20) RBC SED RATE AUTOMATED (08/24/20) ROUTINE VENIPUNCTURE (08/24/20) SARS-COV-2 COVID-19 AMP PRB (08/24/20) THER/PROPH/DIAG INJ SC/IM (08/24/20) THER/PROPH/DIAG IV INF ADDON (08/24/20) THER/PROPH/DIAG IV INF INIT (08/24/20) TX/PRO/DX INJ SAME DRUG 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 (08/24/20) TX/PROPH/DG ADDL SEQ IV INF (08/24/20) URINALYSIS AUTO W/SCOPE (08/24/20) X-RAY EXAM CHEST 1 VIEW (08/24/20) X-RAY EXAM OF FOOT (08/23/20) (1) Diabetic ulcer of foot associated with diabetes mellitus due to underlying condition, limited to breakdown of skin SNOMED Code(s): 487553599, 985248071 Code(s): E08.621 - DIABETES MELLITUS DUE TO UNDERLYING CONDITION W FOOT ULCER; L97.501 - NON-PRS CHR ULCER OTH PRT UNSP FOOT LIMITED TO BRKDWN SKIN Current Visit: Yes Qualifiers: Diabetic foot ulcer location: unspecified part of foot Laterality: right Qualified Code(s): E08.621 - Diabetes mellitus due to underlying condition with foot ulcer; L97.511 - Non-pressure chronic ulcer of other part of right foot limited to breakdown of skin (2) Diabetic foot ulcer SNOMED Code(s): 901556055 Code(s): E11.621 - TYPE 2 DIABETES MELLITUS WITH FOOT ULCER; L97.509 - NON- PRESSURE CHRONIC ULCER OTH PRT UNSP FOOT W UNSP SEVERITY Current Visit: No Qualifiers: Diabetes mellitus type: type 2 Laterality: right Non-pressure ulcer stage: with necrosis of muscle Assessment:: right foot: further improvement, minimal drainage to dorsal and plantar ulcers, ulcer remains stable. The first interspace has a void that will be a challenge to fill with healthy tissue. Problem List Initiated/Reviewed/Updated: Yes Plan: Patient examined and evaluated. Dressing change performed with saline flush and packing with iodoform gauze. Continue IV antibotics pending final result on anaerobic culture. Culture taken in OR has resulted with MSSA. [employer] wound vac to arrive tomorrow but in-house vac can be applied if patient is not being discharged. I discussed with nursing and with Ammy Moser NP. Patient will be seeing me next Saturday in office. Agree with PICC line after discharge.
[2020-09-15] MEDS: Enoxaparin 40 MG/0.4 ML Syringe SUBCUT SCH (17:02)
[2020-09-15] MEDS: atorvaSTATin 20 MG Tab PO SCH (20:26)
[2020-09-16] MEDS: Piperacillin/Tazobactam 4.5 GM in Sodium Chloride 0.9% 100 ML IV SCH ×4 (00:46→18:08)
[2020-09-16 06:27] LABS: BLOOD UREA NITROGEN,BUN 14 mg/dL (7.0-18.0); CARBON DIOXIDE,CO2 26.7 mmol/L (21.0-32.0); CHLORIDE,CL 104 mmol/L (98-107); GLUCOSE RANDOM 158 mg/dL (74-106); SODIUM,NA 138 mmol/L (136-145)
[2020-09-16] MEDS: Pantoprazole 40 MG in Sodium Chloride 0.9% 10 ML IV SCH (06:31)
[2020-09-16] MEDS: Sucralfate Suspension 1 GM/10 ML Cup PO SCH ×4 (06:34→21:02)
[2020-09-16] MEDS ORDERED: Magnesium Sulfate/Water 2 GM/50 ML BAG IV ONE (07:59)
--- NOTE | 2020-09-16 07:59 | PCM.PN ---
- General Info Date of Service: 09/16/20 Admission Dx/Problem (Free Text): Admission Diagnosis/Problem Admission Diagnosis/Problem Diabetic foot ulcer Subjective Update: Continues to do well. Chest pain and upper epigastric chest pain has improved. Patient continues to have menses this is day 3 patient reports it is heavy today which is very normal. Continues to have dressings to feet. Has no other concerns very eager to be discharged 1 cultures arise. Functional Status: Reports: Pain Controlled, Tolerating Diet, Ambulating, Urinating - Review of Systems General: Reports: No Symptoms. Denies: Weakness, Fatigue Pulmonary: Reports: No Symptoms. Denies: Shortness of Breath Cardiovascular: Reports: No Symptoms. Denies: Chest Pain Gastrointestinal: Reports: No Symptoms. Denies: Abdominal Pain, Nausea, Vomiting Genitourinary: Reports: No Symptoms Musculoskeletal: Reports: No Symptoms Skin: Reports: No Symptoms Neurological: Reports: No Symptoms Psychiatric: Reports: No Symptoms - Patient Data Vitals - Most Recent: Last Vital Signs Temp 96.5 F L 09/16/20 07:24 Pulse 70 09/16/20 07:24 Resp 20 09/16/20 07:24 BP 146/83 H 09/16/20 07:24 Pulse Ox 94 L 09/16/20 07:24 Weight - Most Recent: 102.965 kg I&O - Last 24 Hours: Intake & Output 09/15/20 09/16/20 09/16/20 22:59 06:59 14:59 Intake Total 1706 700 Output Total 1350 1750 Balance 356 -1050 Lab Results Last 24 Hours: Laboratory Results - last 24 hr 09/15/20 09/15/20 09/16/20 Range/Units 12:00 16:39 05:28 WBC 8.81 (4.0-11.0) K/uL RBC 4.12 L (4.30-5.90) M/uL Hgb 12.8 (12.0-16.0) g/dL Hct 38.4 (36.0-46.0) % MCV 93.2 (80.0-98.0) fL MCH 31.1 (27.0-32.0) pg MCHC 33.3 (31.0-37.0) g/dL RDW Std Deviation 41.1 (28.0-62.0) fl RDW Coeff of Olimpia 12 (11.0-15.0) % Plt Count 351 (150-400) K/uL MPV 10.40 (7.40-12.00) fL Neut % (Auto) 60.4 (48.0-80.0) % Lymph % (Auto) 26.3 (16.0-40.0) % [place] % (Auto) 7.8 (0.0-15.0) % Eos % (Auto) 5.3 (0.0-7.0) % Baso % (Auto) 0.2 (0.0-1.5) % Neut # (Auto) 5.3 (1.4-5.7) K/uL Lymph # (Auto) 2.3 (0.6-2.4) K/uL [place] # (Auto) 0.7 (0.0-0.8) K/uL Eos # (Auto) 0.5 (0.0-0.7) K/uL Baso # (Auto) 0.0 (0.0-0.1) K/uL Nucleated RBC % 0.0 /100WBC Nucleated RBCs # 0 K/uL Sodium (136-145) mmol/L Potassium (3.5-5.1) mmol/L Chloride (98-107) mmol/L Carbon Dioxide (21.0-32.0) mmol/L BUN (7.0-18.0) mg/dL Creatinine (0.6-1.0) mg/dL Est Cr Clr Drug Dosing mL/min Estimated GFR (MDRD) ml/min Glucose (74-106) mg/dL POC Glucose 173 H 241 H (70-99) mg/dL Calcium (8.5-10.1) mg/dL Magnesium (1.8-2.4) mg/dL 09/16/20 09/16/20 Range/Units 05:28 06:39 WBC (4.0-11.0) K/uL RBC (4.30-5.90) M/uL Hgb (12.0-16.0) g/dL Hct (36.0-46.0) % MCV (80.0-98.0) fL MCH (27.0-32.0) pg MCHC (31.0-37.0) g/dL RDW Std Deviation (28.0-62.0) fl RDW Coeff of [place] (11.0-15.0) % Plt Count (150-400) K/uL MPV (7.40-12.00) fL Neut % (Auto) (48.0-80.0) % Lymph % (Auto) (16.0-40.0) % [place] % (Auto) (0.0-15.0) % Eos % (Auto) (0.0-7.0) % Baso % (Auto) (0.0-1.5) % Neut # (Auto) (1.4-5.7) K/uL Lymph # (Auto) (0.6-2.4) K/uL [place] # (Auto) (0.0-0.8) K/uL Eos # (Auto) (0.0-0.7) K/uL Baso # (Auto) (0.0-0.1) K/uL Nucleated RBC % /100WBC Nucleated RBCs # K/uL Sodium 138 (136-145) mmol/L Potassium 4.0 (3.5-5.1) mmol/L Chloride 104 (98-107) mmol/L Carbon Dioxide 26.7 (21.0-32.0) mmol/L BUN 14 (7.0-18.0) mg/dL Creatinine 0.9 (0.6-1.0) mg/dL Est Cr Clr Drug Dosing 62.80 mL/min Estimated GFR (MDRD) > 60.0 ml/min Glucose 158 H (74-106) mg/dL POC Glucose 148 H (70-99) mg/dL Calcium 8.9 (8.5-10.1) mg/dL Magnesium 1.6 L (1.8-2.4) mg/dL Med Orders - Current: Current Medications Acetaminophen (Acetaminophen 325 Mg Tab) 650 mg PO Q4H PRN PRN Reason: Pain (Mild 1-3)/fever Last Admin: 09/13/20 10:22 Dose: 650 mg Documented by: Atorvastatin Calcium (Atorvastatin 20 Mg Tab) 20 mg PO BEDTIME МАРИНА Last Admin: 09/15/20 20:26 Dose: 20 mg Documented by: Al Hydroxide/Mg Hydroxide 15 (ml/ Lidocaine HCl 5 ml) 0 ml PO Q8H PRN PRN Reason: GI pain Last Admin: 09/14/20 11:37 Dose: 20 each Documented by: Dextrose/Water (50% Dextrose In Water 50 Ml Syringe) 50 ml IV ASDIRECTED PRN PRN Reason: Hypoglycemia Docusate Sodium (Docusate Sodium 100 Mg Cap) 100 mg PO BID PRN PRN Reason: Constipation Duloxetine HCl (Duloxetine 30 Mg Cap) 30 mg PO DAILY [facility] Last Admin: 09/15/20 09:24 Dose: 30 mg Documented by: Enoxaparin Sodium (Enoxaparin 40 Mg/0.4 Ml Syringe) 40 mg SUBCUT Q24H [facility] Last Admin: 09/15/20 17:02 Dose: 40 mg Documented by: Gabapentin (Gabapentin 300 Mg Cap) 300 mg PO DAILY [facility] Last Admin: 09/15/20 09:24 Dose: 300 mg Documented by: Glucagon (Glucagon,Human Recombinant 1 Mg Vial) 1 mg IM ASDIRECTED PRN PRN Reason: Hypoglycemia Piperacillin Sod/Tazobactam (Sod 4.5 gm/ Sodium Chloride) 100 mls @ 25 mls/hr IV Q6H [facility] Last Admin: 09/16/20 06:35 Dose: 100 mls/hr Documented by: Pantoprazole Sodium 40 mg/ (Sodium Chloride) 10 mls @ 300 mls/hr IV Q24H [facility] Last Admin: 09/16/20 06:31 Dose: 300 mls/hr Documented by: Magnesium Sulfate (Magnesium Sulfate In Water 2 Gm/50 Ml) 2 gm in 50 mls @ 50 mls/hr IV ONETIME ONE Stop: 09/16/20 08:58 Insulin Aspart (Insulin Aspart 100 Units/Ml 3 Ml Pen) 0 unit SUBCUT TIDAC [facility]; Protocol Last Admin: 09/15/20 18:03 Dose: 6 units Documented by: Insulin Human NPH (Insulin Isophane Nph, Human 100 Units/Ml 10 Ml Vial) 20 unit SUBCUT BIDAC [facility] Last Admin: 09/15/20 18:04 Dose: 20 units Documented by: Morphine Sulfate (Morphine 2 Mg/Ml Syringe) 2 mg IVPUSH Q2H PRN PRN Reason: Pain (severe 7-10) Last Admin: 09/13/20 16:11 Dose: 2 mg Documented by: Ondansetron HCl (Ondansetron 4 Mg/2 Ml Sdv) 4 mg IVPUSH Q4H PRN PRN Reason: Nausea Oxycodone HCl (Oxycodone 5 Mg Tab) 5 mg PO Q4H PRN PRN Reason: Pain (moderate 4-6) Last Admin: 09/13/20 13:56 Dose: 5 mg Documented by: Sodium Chloride (Sodium Chloride 0.9% 2.5 Ml Syringe) 2.5 ml FLUSH ASDIRECTED PRN PRN Reason: Keep Vein Open Sucralfate (Sucralfate Suspension 1 Gm/10 Ml Cup) 1 gm PO QIDACANDBED МАРИНА Last Admin: 09/16/20 06:34 Dose: 1 gm Documented by: Discontinued Medications Bacitracin (Bacitracin Oint 28.35 Gm Tube) 1 gm TOP ONETIME ONE Stop: 09/10/20 12:41 Last Admin: 09/10/20 12:58 Dose: 1 applicful Documented by: Bupivacaine HCl (Bupivacaine 0.5% 10 Ml Sdv) Confirm Administered Dose 10 ml .ROUTE .STK-MED ONE Stop: 09/08/20 16:48 Al Hydroxide/Mg Hydroxide 15 (ml/ Lidocaine HCl 5 ml) 0 ml PO ONETIME ONE Stop: 09/13/20 11:01 Last Admin: 09/13/20 12:01 Dose: 5 each Documented by: Al Hydroxide/Mg Hydroxide 15 ml/ Metoclopramide HCl 5 mg/Lidocaine HCl 5 ml 0 ml PO ONETIME ONE Stop: 09/13/20 14:46 Last Admin: 09/13/20 15:00 Dose: 10 each Documented by: Famotidine (Famotidine 20 Mg/2 Ml Sdv) 40 mg IVPUSH ONETIME ONE Stop: 09/08/20 14:04 Last Admin: 09/08/20 14:25 Dose: 40 mg Documented by: Fentanyl (Fentanyl 100 Mcg/2 Ml Sdv) Confirm Administered Dose 100 mcg .ROUTE .STK-MED ONE Stop: 09/08/20 17:33 Gadobenate Dimeglumine (Gadobenate Dimeglumine 529 Mg/Ml 20 Ml Sdv) 20 ml IVPUSH ONETIME STA Stop: 09/08/20 07:38 Last Admin: 09/08/20 07:39 Dose: 20 ml Documented by: Gadobenate Dimeglumine (Gadobenate Dimeglumine 529 Mg/Ml 20 Ml Sdv) 20 ml IVPUSH ONETIME STA Stop: 09/12/20 07:26 Last Admin: 09/12/20 07:27 Dose: 20 ml Documented by: Sodium Chloride (Normal Saline) 1,000 mls @ 999 mls/hr IV .Bolus ONE Stop: 09/07/20 12:43 Last Admin: 09/07/20 12:25 Dose: 999 mls/hr Documented by: Vancomycin HCl 1,500 mg/ (Sodium Chloride) 100 mls @ 100 mls/hr IV ONETIME ONE Stop: 09/07/20 12:42 Last Admin: 09/07/20 13:22 Dose: Not Given Documented by: Piperacillin Sod/Tazobactam (Sod 3.375 gm/ Sodium Chloride) 50 mls @ 100 mls/hr IV ONETIME ONE Stop: 09/07/20 12:12 Last Admin: 09/07/20 12:27 Dose: 100 mls/hr Documented by: Magnesium Sulfate 2 gm/ Premix 50 mls @ 50 mls/hr IV ONETIME ONE Stop: 09/07/20 13:51 Last Admin: 09/07/20 14:00 Dose: 50 mls/hr Documented by: Vancomycin HCl 1.5 gm/ Premix 300 mls @ 200 mls/hr IV ONETIME ONE Stop: 09/07/20 14:50 Last Admin: 09/07/20 14:00 Dose: 200 mls/hr Documented by: Sodium Chloride (Normal Saline) 1,000 mls @ 125 mls/hr IV Q8H [facility] Last Admin: 09/09/20 13:43 Dose: Not Given Documented by: Piperacillin Sod/Tazobactam (Sod 4.5 gm/ Sodium Chloride) 100 mls @ 100 mls/hr IV Q8H [facility] Last Admin: 09/08/20 04:29 Dose: 100 mls/hr Documented by: Vancomycin HCl 1.5 gm/ Premix 300 mls @ 200 mls/hr IV Q12H [facility] Stop: 09/09/20 16:00 Last Admin: 09/09/20 14:20 Dose: 200 mls/hr Documented by: Piperacillin Sod/Tazobactam (Sod 4.5 gm/ Sodium Chloride) 100 mls @ 100 mls/hr IV Q6H [facility] Last Admin: 09/10/20 09:39 Dose: 100 mls/hr Documented by: Vancomycin HCl 1.5 gm/ Premix 300 mls @ 200 mls/hr IV Q8H [facility] Last Admin: 09/10/20 05:09 Dose: 200 mls/hr Documented by: Magnesium Sulfate (Magnesium Sulfate In Water 2 Gm/50 Ml) 2 gm in 50 mls @ 50 mls/hr IV ONETIME ONE Stop: 09/10/20 11:59 Last Admin: 09/10/20 12:59 Dose: 50 mls/hr Documented by: Cefazolin Sodium/Dextrose 2 gm (/ Premix) 50 mls @ 100 mls/hr IV Q8H [facility] Last Admin: 09/12/20 10:40 Dose: 100 mls/hr Documented by: Magnesium Sulfate (Magnesium Sulfate In Water 2 Gm/50 Ml) 2 gm in 50 mls @ 50 mls/hr IV ONETIME ONE Stop: 09/11/20 11:44 Last Admin: 09/11/20 11:41 Dose: 50 mls/hr Documented by: Magnesium Sulfate (Magnesium Sulfate In Water 2 Gm/50 Ml) 2 gm in 50 mls @ 50 mls/hr IV ONETIME ONE Stop: 09/12/20 09:28 Last Admin: 09/12/20 09:27 Dose: 50 mls/hr Documented by: Magnesium Sulfate (Magnesium Sulfate In Water 4 Gm/100 Ml) 4 gm in 100 mls @ 50 mls/hr IV ONETIME ONE Stop: 09/13/20 10:29 Last Admin: 09/13/20 09:10 Dose: 50 mls/hr Documented by: Pantoprazole Sodium 40 mg/ (Sodium Chloride) 10 mls @ 300 mls/hr IV NOW ONE Stop: 09/13/20 14:16 Last Admin: 09/13/20 14:28 Dose: 300 mls/hr Documented by: Iopamidol (Iopamidol 755 Mg/Ml 500 Ml Multipack Bottle) 50 ml IVPUSH ONETIME STA Stop: 09/13/20 17:59 Last Admin: 09/13/20 17:59 Dose: 50 ml Documented by: Lidocaine HCl (Lidocaine 1% 20 Ml Mdv) Confirm Administered Dose 20 ml .ROUTE .STK-MED ONE Stop: 09/08/20 16:48 Lisinopril (Lisinopril 10 Mg Tab) 20 mg PO BID [facility] Last Admin: 09/13/20 21:30 Dose: Not Given Documented by: Metoclopramide HCl (Metoclopramide 10 Mg/2 Ml Sdv) 10 mg IVPUSH ONETIME ONE Stop: 09/08/20 14:06 Last Admin: 09/08/20 14:25 Dose: 10 mg Documented by: Midazolam HCl (Midazolam 1 Mg/Ml 2 Ml Sdv) Confirm Administered Dose 2 mg .ROUTE .STK-MED ONE Stop: 09/08/20 17:33 Morphine Sulfate (Morphine 2 Mg/Ml Syringe) 2 mg IVPUSH ONETIME ONE Stop: 09/13/20 14:13 Last Admin: 09/13/20 14:32 Dose: Not Given Documented by: Ondansetron HCl (Ondansetron 4 Mg/2 Ml Sdv) Confirm Administered Dose 4 mg .ROUTE .STK-MED ONE Stop: 09/07/20 13:59 Last Admin: 09/07/20 14:03 Dose: Not Given Documented by: Ondansetron HCl (Ondansetron 4 Mg/2 Ml Sdv) 4 mg IVPUSH ONETIME ONE Stop: 09/07/20 14:01 Last Admin: 09/07/20 14:03 Dose: 4 mg Documented by: Oxycodone/Acetaminophen (Acetaminophen/Oxycodone 325-5 Mg Tab) 2 tab PO ONETIME ONE Stop: 09/07/20 11:44 Last Admin: 09/07/20 12:25 Dose: 2 tab Documented by: Pantoprazole Sodium (Pantoprazole 40 Mg Tab.Cr) 40 mg PO DAILY [facility] Last Admin: 09/13/20 11:32 Dose: 40 mg Documented by: Sodium Chloride (Sodium Chloride 0.9% 10 Ml Syringe) 10 ml FLUSH ASDIRECTED PRN PRN Reason: Keep Vein Open Last Admin: 09/07/20 12:27 Dose: 10 ml Documented by: Sodium Chloride (Sodium Chloride 0.9% 2.5 Ml Syringe) 2.5 ml FLUSH ASDIRECTED PRN PRN Reason: Keep Vein Open Last Admin: 09/07/20 12:27 Dose: 2.5 ml Documented by: Vancomycin HCl (Pharmacy To Dose - Vancomycin) 1 dose .XX ASDIRECTED МАРИНА - Exam General: Alert, Oriented, Cooperative, No Acute Distress Lungs: Clear to Auscultation, Normal Respiratory Effort Cardiovascular: Regular Rate, Regular Rhythm GI/Abdominal Exam: Normal Bowel Sounds, Soft, Non-Tender Extremities: Normal Inspection, Normal Range of Motion, Non-Tender, No Pedal Edema Wound/Incisions: Dressing Dry and Intact (Wound VAC intact to right foot. Left foot continues to heal has stage I ulcers to plantar surface.), No Drainage. No: Erythema Psy/Mental Status: Alert, Normal Affect, Normal Mood - Patient Data Lab Results Last 24 hrs: Laboratory Results - last 24 hr 09/15/20 09/15/20 09/16/20 Range/Units 12:00 16:39 05:28 WBC 8.81 (4.0-11.0) K/uL RBC 4.12 L (4.30-5.90) M/uL Hgb 12.8 (12.0-16.0) g/dL Hct 38.4 (36.0-46.0) % MCV 93.2 (80.0-98.0) fL MCH 31.1 (27.0-32.0) pg MCHC 33.3 (31.0-37.0) g/dL RDW Std Deviation 41.1 (28.0-62.0) fl RDW Coeff of [place]limp[place] 12 (11.0-15.0) % Plt Count 351 (150-400) K/uL MPV 10.40 (7.40-12.00) fL Neut % (Auto) 60.4 (48.0-80.0) % Lymph % (Auto) 26.3 (16.0-40.0) % [place] % (Auto) 7.8 (0.0-15.0) % Eos % (Auto) 5.3 (0.0-7.0) % Baso % (Auto) 0.2 (0.0-1.5) % Neut # (Auto) 5.3 (1.4-5.7) K/uL Lymph # (Auto) 2.3 (0.6-2.4) K/uL [place] # (Auto) 0.7 (0.0-0.8) K/uL Eos # (Auto) 0.5 (0.0-0.7) K/uL Baso # (Auto) 0.0 (0.0-0.1) K/uL Nucleated RBC % 0.0 /100WBC Nucleated RBCs # 0 K/uL Sodium (136-145) mmol/L Potassium (3.5-5.1) mmol/L Chloride (98-107) mmol/L Carbon Dioxide (21.0-32.0) mmol/L BUN (7.0-18.0) mg/dL Creatinine (0.6-1.0) mg/dL Est Cr Clr Drug Dosing mL/min Estimated GFR (MDRD) ml/min Glucose (74-106) mg/dL POC Glucose 173 H 241 H (70-99) mg/dL Calcium (8.5-10.1) mg/dL Magnesium (1.8-2.4) mg/dL 09/16/20 09/16/20 Range/Units 05:28 06:39 WBC (4.0-11.0) K/uL RBC (4.30-5.90) M/uL Hgb (12.0-16.0) g/dL Hct (36.0-46.0) % MCV (80.0-98.0) fL MCH (27.0-32.0) pg MCHC (31.0-37.0) g/dL RDW Std Deviation (28.0-62.0) fl RDW Coeff of [place] (11.0-15.0) % Plt Count (150-400) K/uL MPV (7.40-12.00) fL Neut % (Auto) (48.0-80.0) % Lymph % (Auto) (16.0-40.0) % [place] % (Auto) (0.0-15.0) % Eos % (Auto) (0.0-7.0) % Baso % (Auto) (0.0-1.5) % Neut # (Auto) (1.4-5.7) K/uL Lymph # (Auto) (0.6-2.4) K/uL [place] # (Auto) (0.0-0.8) K/uL Eos # (Auto) (0.0-0.7) K/uL Baso # (Auto) (0.0-0.1) K/uL Nucleated RBC % /100WBC Nucleated RBCs # K/uL Sodium 138 (136-145) mmol/L Potassium 4.0 (3.5-5.1) mmol/L Chloride 104 (98-107) mmol/L Carbon Dioxide 26.7 (21.0-32.0) mmol/L BUN 14 (7.0-18.0) mg/dL Creatinine 0.9 (0.6-1.0) mg/dL Est Cr Clr Drug Dosing 62.80 mL/min Estimated GFR (MDRD) > 60.0 ml/min Glucose 158 H (74-106) mg/dL POC Glucose 148 H (70-99) mg/dL Calcium 8.9 (8.5-10.1) mg/dL Magnesium 1.6 L (1.8-2.4) mg/dL Result Diagrams: 09/16/20 05:28 09/16/20 05:28 Sepsis Event Note - Evaluation Sepsis Screening Result: No Definite Risk - Focused Exam Vital Signs: Vital Signs Temp Pulse Resp BP Pulse Ox 09/16/20 07:24 96.5 F L 70 20 146/83 H 94 L 09/16/20 04:00 97.7 F 67 18 157/81 H 95 09/16/20 00:49 98.8 F 71 18 135/68 94 L 09/15/20 20:00 97.9 F 67 18 124/70 96 - Problem List & Annotations (1) Obesity SNOMED Code(s): 098444120, 147695076 Code(s): E66.9 - OBESITY, UNSPECIFIED Status: Chronic Current Visit: Yes (2) Neuropathy SNOMED Code(s): 184199223 Code(s): G62.9 - POLYNEUROPATHY, UNSPECIFIED Status: Chronic Current Visit: No (3) Hypertension SNOMED Code(s): 32666858 Code(s): I10 - ESSENTIAL (PRIMARY) HYPERTENSION Status: Chronic Current Visit: No (4) Diabetic ulcer of foot associated with diabetes mellitus due to underlying condition, limited to breakdown of skin SNOMED Code(s): 722186654, 593428538 Code(s): E08.621 - DIABETES MELLITUS DUE TO UNDERLYING CONDITION W FOOT ULCER; L97.501 - NON-PRS CHR ULCER OTH PRT UNSP FOOT LIMITED TO BRKDWN SKIN Status: Acute Current Visit: Yes Qualifiers: Diabetic foot ulcer location: unspecified part of foot Laterality: right Qualified Code(s): E08.621 - Diabetes mellitus due to underlying condition with foot ulcer; L97.511 - Non-pressure chronic ulcer of other part of right foot limited to breakdown of skin (5) Hyperlipemia SNOMED Code(s): 74304288 Code(s): E78.5 - HYPERLIPIDEMIA, UNSPECIFIED Status: Chronic Current Visit: No (6) Hypomagnesemia SNOMED Code(s): 583413622 Code(s): E83.42 - HYPOMAGNESEMIA Status: Acute Current Visit: Yes - Problem List Review Problem List Initiated/Reviewed/Updated: Yes - My Orders Last 24 Hours: My Active Orders 09/15/20 11:10 Sizing End Bander Discontinue [Cardiac Monitoring Discontinue] [RC] Click to Edit 09/15/20 17:14 H PYLORI STOOL ANTIGEN [MREF] Routine 09/16/20 07:59 Magnesium Sulfate/Water [Magnesium Sulfate in Water 2 GM/50 ML] 2 gm in 50 ml IV ONETIME - Plan Plan:: This 55-year-old female admitted with cellulitis and right foot diabetic ulcer. 1. Cellulitis/right foot diabetic ulcer -Cultures are growing MSSA , anaerobic culture growing potential organism. -Continue Zosyn 4.5 gm will extend to have continuous infusion. -Dr. Pete on consult, appreciate his recommendations. Plan for wound VAC as an outpatient in Dr. Pete's clinic -Wound care to left foot. Wound VAC to right foot. -PICC line i appointment has been changed to Saturday afternoon. 2. DM type II, uncontrolled -Blood sugar checks 3 times daily before meals and as needed -NovoLog sliding scale insulin with meals -Continue Novolin H 20 units twice daily -ADA diet 3. Hypertension/HLD -Lisinopril -Continue statin 4. GERD history esophageal ulcer -Continue Protonix -Continue Carafate with meals and at bedtime -GI cocktail as needed -Keep diet light. VTE prophylaxis: Lovenox will pause Lovenox as patient is having increasing menses bleeding. CODE STATUS: Full code Dispo: Discharge pending anaerobic cultures.
[2020-09-16] MEDS: Insulin Isophane NPH, Human 100 Units/ML 10 ML Vial SUBCUT SCH ×2 (08:20→17:32)
[2020-09-16] MEDS: Insulin Aspart 100 Units/ML 3 ML Pen SUBCUT SCH ×3 (08:23→17:32)
[2020-09-16] MEDS: DULoxetine 30 MG Cap PO SCH (08:52)
[2020-09-16] MEDS: Gabapentin 300 MG Cap PO SCH (08:52)
[2020-09-16] MEDS: atorvaSTATin 20 MG Tab PO SCH (21:02)
[2020-09-17] MEDS: Piperacillin/Tazobactam 4.5 GM in Sodium Chloride 0.9% 100 ML IV SCH ×4 (00:13→18:36)
[2020-09-17] MEDS: Pantoprazole 40 MG in Sodium Chloride 0.9% 10 ML IV SCH (06:31)
[2020-09-17] MEDS: Sucralfate Suspension 1 GM/10 ML Cup PO SCH ×4 (06:36→20:00)
[2020-09-17] MEDS: Insulin Aspart 100 Units/ML 3 ML Pen SUBCUT SCH ×3 (07:42→17:42)
[2020-09-17] MEDS: Insulin Isophane NPH, Human 100 Units/ML 10 ML Vial SUBCUT SCH ×2 (07:43→17:43)
[2020-09-17] MEDS: DULoxetine 30 MG Cap PO SCH (08:58)
[2020-09-17] MEDS: Gabapentin 300 MG Cap PO SCH (08:58)
--- NOTE | 2020-09-17 12:59 | PCM.PN ---
- General Info Date of Service: 09/17/20 Admission Dx/Problem (Free Text): Admission Diagnosis/Problem Admission Diagnosis/Problem Diabetic foot ulcer Subjective Update: Continues to do well. , still has possible menstural bleeding, states it usually lasts 7 days, wound vac in place, cultures pending. Functional Status: Reports: Pain Controlled, Tolerating Diet, Ambulating, Urinating - Review of Systems General: Denies: Fever, Weakness, Fatigue HEENT: Denies: Contact Lenses, Dysphasia Pulmonary: Denies: Shortness of Breath, Pleuritic Chest Pain Cardiovascular: Denies: Chest Pain, Palpitations, Dyspnea on Exertion Gastrointestinal: Denies: Abdominal Pain, Constipation, Decreased Appetite Genitourinary: Denies: Dysuria, Frequency, Burning Musculoskeletal: Denies: Neck Pain, Shoulder Pain, Arm Pain Skin: Denies: Cyanosis, Jaundice, Mottled Neurological: Denies: Confusion, Dizziness - Patient Data Vitals - Most Recent: Last Vital Signs Temp 36.8 C 09/17/20 11:54 Pulse 69 09/17/20 11:54 Resp 17 09/17/20 11:54 BP 133/72 09/17/20 11:54 Pulse Ox 95 09/17/20 11:54 Weight - Most Recent: 102.965 kg I&O - Last 24 Hours: Intake & Output 09/16/20 09/17/20 09/17/20 22:59 06:59 14:59 Intake Total 1550 640 Output Total 1100 800 Balance 450 -160 Lab Results Last 24 Hours: Laboratory Results - last 24 hr 09/16/20 09/17/20 09/17/20 Range/Units 17:09 06:39 11:46 POC Glucose 173 H 164 H 178 H (70-99) mg/dL Kofi Results Last 24 Hours: Microbiology 09/15/20 17:14 Helicobacter pylori Antigen - Final Stool / Feces Med Orders - Current: Current Medications Acetaminophen (Acetaminophen 325 Mg Tab) 650 mg PO Q4H PRN PRN Reason: Pain (Mild 1-3)/fever Last Admin: 09/13/20 10:22 Dose: 650 mg Documented by: Atorvastatin Calcium (Atorvastatin 20 Mg Tab) 20 mg PO BEDTIME МРАИНА Last Admin: 09/16/20 21:02 Dose: 20 mg Documented by: Al Hydroxide/Mg Hydroxide 15 (ml/ Lidocaine HCl 5 ml) 0 ml PO Q8H PRN PRN Reason: GI pain Last Admin: 09/14/20 11:37 Dose: 20 each Documented by: Dextrose/Water (50% Dextrose In Water 50 Ml Syringe) 50 ml IV ASDIRECTED PRN PRN Reason: Hypoglycemia Docusate Sodium (Docusate Sodium 100 Mg Cap) 100 mg PO BID PRN PRN Reason: Constipation Duloxetine HCl (Duloxetine 30 Mg Cap) 30 mg PO DAILY [facility] Last Admin: 09/17/20 08:58 Dose: 30 mg Documented by: Gabapentin (Gabapentin 300 Mg Cap) 300 mg PO DAILY [facility] Last Admin: 09/17/20 08:58 Dose: 300 mg Documented by: Glucagon (Glucagon,Human Recombinant 1 Mg Vial) 1 mg IM ASDIRECTED PRN PRN Reason: Hypoglycemia Piperacillin Sod/Tazobactam (Sod 4.5 gm/ Sodium Chloride) 100 mls @ 25 mls/hr IV Q6H [facility] Last Admin: 09/17/20 06:24 Dose: 25 mls/hr Documented by: Pantoprazole Sodium 40 mg/ (Sodium Chloride) 10 mls @ 300 mls/hr IV Q24H [facility] Last Admin: 09/17/20 06:31 Dose: 300 mls/hr Documented by: Insulin Aspart (Insulin Aspart 100 Units/Ml 3 Ml Pen) 0 unit SUBCUT TIDAC [facility]; Protocol Last Admin: 09/17/20 11:52 Dose: 3 units Documented by: Insulin Human NPH (Insulin Isophane Nph, Human 100 Units/Ml 10 Ml Vial) 20 unit SUBCUT BIDAC [facility] Last Admin: 09/17/20 07:43 Dose: 20 units Documented by: Morphine Sulfate (Morphine 2 Mg/Ml Syringe) 2 mg IVPUSH Q2H PRN PRN Reason: Pain (severe 7-10) Last Admin: 09/13/20 16:11 Dose: 2 mg Documented by: Ondansetron HCl (Ondansetron 4 Mg/2 Ml Sdv) 4 mg IVPUSH Q4H PRN PRN Reason: Nausea Oxycodone HCl (Oxycodone 5 Mg Tab) 5 mg PO Q4H PRN PRN Reason: Pain (moderate 4-6) Last Admin: 09/13/20 13:56 Dose: 5 mg Documented by: Sodium Chloride (Sodium Chloride 0.9% 2.5 Ml Syringe) 2.5 ml FLUSH ASDIRECTED PRN PRN Reason: Keep Vein Open Sucralfate (Sucralfate Suspension 1 Gm/10 Ml Cup) 1 gm PO QIDACANDBED [facility] Last Admin: 09/17/20 11:51 Dose: 1 gm Documented by: Discontinued Medications Bacitracin (Bacitracin Oint 28.35 Gm Tube) 1 gm TOP ONETIME ONE Stop: 09/10/20 12:41 Last Admin: 09/10/20 12:58 Dose: 1 applicful Documented by: Bupivacaine HCl (Bupivacaine 0.5% 10 Ml Sdv) Confirm Administered Dose 10 ml .ROUTE .STK-MED ONE Stop: 09/08/20 16:48 Al Hydroxide/Mg Hydroxide 15 (ml/ Lidocaine HCl 5 ml) 0 ml PO ONETIME ONE Stop: 09/13/20 11:01 Last Admin: 09/13/20 12:01 Dose: 5 each Documented by: Al Hydroxide/Mg Hydroxide 15 ml/ Metoclopramide HCl 5 mg/Lidocaine HCl 5 ml 0 ml PO ONETIME ONE Stop: 09/13/20 14:46 Last Admin: 09/13/20 15:00 Dose: 10 each Documented by: Enoxaparin Sodium (Enoxaparin 40 Mg/0.4 Ml Syringe) 40 mg SUBCUT Q24H [facility] Last Admin: 09/15/20 17:02 Dose: 40 mg Documented by: Famotidine (Famotidine 20 Mg/2 Ml Sdv) 40 mg IVPUSH ONETIME ONE Stop: 09/08/20 14:04 Last Admin: 09/08/20 14:25 Dose: 40 mg Documented by: Fentanyl (Fentanyl 100 Mcg/2 Ml Sdv) Confirm Administered Dose 100 mcg .ROUTE .STK-MED ONE Stop: 09/08/20 17:33 Gadobenate Dimeglumine (Gadobenate Dimeglumine 529 Mg/Ml 20 Ml Sdv) 20 ml IVPUSH ONETIME STA Stop: 09/08/20 07:38 Last Admin: 09/08/20 07:39 Dose: 20 ml Documented by: Gadobenate Dimeglumine (Gadobenate Dimeglumine 529 Mg/Ml 20 Ml Sdv) 20 ml IVPUSH ONETIME STA Stop: 09/12/20 07:26 Last Admin: 09/12/20 07:27 Dose: 20 ml Documented by: Sodium Chloride (Normal Saline) 1,000 mls @ 999 mls/hr IV .Bolus ONE Stop: 09/07/20 12:43 Last Admin: 09/07/20 12:25 Dose: 999 mls/hr Documented by: Vancomycin HCl 1,500 mg/ (Sodium Chloride) 100 mls @ 100 mls/hr IV ONETIME ONE Stop: 09/07/20 12:42 Last Admin: 09/07/20 13:22 Dose: Not Given Documented by: Piperacillin Sod/Tazobactam (Sod 3.375 gm/ Sodium Chloride) 50 mls @ 100 mls/hr IV ONETIME ONE Stop: 09/07/20 12:12 Last Admin: 09/07/20 12:27 Dose: 100 mls/hr Documented by: Magnesium Sulfate 2 gm/ Premix 50 mls @ 50 mls/hr IV ONETIME ONE Stop: 09/07/20 13:51 Last Admin: 09/07/20 14:00 Dose: 50 mls/hr Documented by: Vancomycin HCl 1.5 gm/ Premix 300 mls @ 200 mls/hr IV ONETIME ONE Stop: 09/07/20 14:50 Last Admin: 09/07/20 14:00 Dose: 200 mls/hr Documented by: Sodium Chloride (Normal Saline) 1,000 mls @ 125 mls/hr IV Q8H [facility] Last Admin: 09/09/20 13:43 Dose: Not Given Documented by: Piperacillin Sod/Tazobactam (Sod 4.5 gm/ Sodium Chloride) 100 mls @ 100 mls/hr IV Q8H [facility] Last Admin: 09/08/20 04:29 Dose: 100 mls/hr Documented by: Vancomycin HCl 1.5 gm/ Premix 300 mls @ 200 mls/hr IV Q12H [facility] Stop: 09/09/20 16:00 Last Admin: 09/09/20 14:20 Dose: 200 mls/hr Documented by: Piperacillin Sod/Tazobactam (Sod 4.5 gm/ Sodium Chloride) 100 mls @ 100 mls/hr IV Q6H [facility] Last Admin: 09/10/20 09:39 Dose: 100 mls/hr Documented by: Vancomycin HCl 1.5 gm/ Premix 300 mls @ 200 mls/hr IV Q8H [facility] Last Admin: 09/10/20 05:09 Dose: 200 mls/hr Documented by: Magnesium Sulfate (Magnesium Sulfate In Water 2 Gm/50 Ml) 2 gm in 50 mls @ 50 mls/hr IV ONETIME ONE Stop: 09/10/20 11:59 Last Admin: 09/10/20 12:59 Dose: 50 mls/hr Documented by: Cefazolin Sodium/Dextrose 2 gm (/ Premix) 50 mls @ 100 mls/hr IV Q8H [facility] Last Admin: 09/12/20 10:40 Dose: 100 mls/hr Documented by: Magnesium Sulfate (Magnesium Sulfate In Water 2 Gm/50 Ml) 2 gm in 50 mls @ 50 mls/hr IV ONETIME ONE Stop: 09/11/20 11:44 Last Admin: 09/11/20 11:41 Dose: 50 mls/hr Documented by: Magnesium Sulfate (Magnesium Sulfate In Water 2 Gm/50 Ml) 2 gm in 50 mls @ 50 mls/hr IV ONETIME ONE Stop: 09/12/20 09:28 Last Admin: 09/12/20 09:27 Dose: 50 mls/hr Documented by: Magnesium Sulfate (Magnesium Sulfate In Water 4 Gm/100 Ml) 4 gm in 100 mls @ 50 mls/hr IV ONETIME ONE Stop: 09/13/20 10:29 Last Admin: 09/13/20 09:10 Dose: 50 mls/hr Documented by: Pantoprazole Sodium 40 mg/ (Sodium Chloride) 10 mls @ 300 mls/hr IV NOW ONE Stop: 09/13/20 14:16 Last Admin: 09/13/20 14:28 Dose: 300 mls/hr Documented by: Magnesium Sulfate (Magnesium Sulfate In Water 2 Gm/50 Ml) 2 gm in 50 mls @ 50 mls/hr IV ONETIME ONE Stop: 09/16/20 08:58 Last Admin: 09/16/20 08:55 Dose: 50 mls/hr Documented by: Iopamidol (Iopamidol 755 Mg/Ml 500 Ml Multipack Bottle) 50 ml IVPUSH ONETIME STA Stop: 09/13/20 17:59 Last Admin: 09/13/20 17:59 Dose: 50 ml Documented by: Lidocaine HCl (Lidocaine 1% 20 Ml Mdv) Confirm Administered Dose 20 ml .ROUTE .STK-MED ONE Stop: 09/08/20 16:48 Lisinopril (Lisinopril 10 Mg Tab) 20 mg PO BID [facility] Last Admin: 09/13/20 21:30 Dose: Not Given Documented by: Metoclopramide HCl (Metoclopramide 10 Mg/2 Ml Sdv) 10 mg IVPUSH ONETIME ONE Stop: 09/08/20 14:06 Last Admin: 09/08/20 14:25 Dose: 10 mg Documented by: Midazolam HCl (Midazolam 1 Mg/Ml 2 Ml Sdv) Confirm Administered Dose 2 mg .ROUTE .STK-MED ONE Stop: 09/08/20 17:33 Morphine Sulfate (Morphine 2 Mg/Ml Syringe) 2 mg IVPUSH ONETIME ONE Stop: 09/13/20 14:13 Last Admin: 09/13/20 14:32 Dose: Not Given Documented by: Ondansetron HCl (Ondansetron 4 Mg/2 Ml Sdv) Confirm Administered Dose 4 mg .ROUTE .STK-MED ONE Stop: 09/07/20 13:59 Last Admin: 09/07/20 14:03 Dose: Not Given Documented by: Ondansetron HCl (Ondansetron 4 Mg/2 Ml Sdv) 4 mg IVPUSH ONETIME ONE Stop: 09/07/20 14:01 Last Admin: 09/07/20 14:03 Dose: 4 mg Documented by: Oxycodone/Acetaminophen (Acetaminophen/Oxycodone 325-5 Mg Tab) 2 tab PO ONETIME ONE Stop: 09/07/20 11:44 Last Admin: 09/07/20 12:25 Dose: 2 tab Documented by: Pantoprazole Sodium (Pantoprazole 40 Mg Tab.Cr) 40 mg PO DAILY [facility] Last Admin: 09/13/20 11:32 Dose: 40 mg Documented by: Sodium Chloride (Sodium Chloride 0.9% 10 Ml Syringe) 10 ml FLUSH ASDIRECTED PRN PRN Reason: Keep Vein Open Last Admin: 09/07/20 12:27 Dose: 10 ml Documented by: Sodium Chloride (Sodium Chloride 0.9% 2.5 Ml Syringe) 2.5 ml FLUSH ASDIRECTED PRN PRN Reason: Keep Vein Open Last Admin: 09/07/20 12:27 Dose: 2.5 ml Documented by: Vancomycin HCl (Pharmacy To Dose - Vancomycin) 1 dose .XX ASDIRECTED МАРИНА - Exam General: Alert, Oriented Neck: Supple Lungs: Clear to Auscultation, Normal Respiratory Effort Cardiovascular: Regular Rate, Regular Rhythm GI/Abdominal Exam: Normal Bowel Sounds, Soft, Non-Tender Back Exam: Normal Inspection, Full Range of Motion - Patient Data Lab Results Last 24 hrs: Laboratory Results - last 24 hr 09/16/20 09/17/20 09/17/20 Range/Units 17:09 06:39 11:46 POC Glucose 173 H 164 H 178 H (70-99) mg/dL Result Diagrams: 09/16/20 05:28 09/16/20 05:28 Kofi Results Last 24 hrs: Microbiology 09/15/20 17:14 Helicobacter pylori Antigen - Final Stool / Feces Sepsis Event Note - Evaluation Sepsis Screening Result: No Definite Risk - Focused Exam Vital Signs: Vital Signs Temp Pulse Resp BP BP Pulse Ox 09/17/20 11:54 36.8 C 69 17 133/72 95 09/17/20 07:41 36.1 C 70 17 138/80 95 09/17/20 03:52 35.9 C L 79 18 140/70 95 - Problem List & Annotations (1) Cellulitis SNOMED Code(s): 854665257 Code(s): L03.90 - CELLULITIS, UNSPECIFIED Status: Acute Current Visit: Ye s Qualifiers: Site of cellulitis: extremity Site of cellulitis of extremity: lower extremity Laterality: right Qualified Code(s): L03.115 - Cellulitis of right lower limb (2) Diabetic ulcer of foot associated with diabetes mellitus due to underlying condition, limited to breakdown of skin SNOMED Code(s): 771039173, 073127651 Code(s): E08.621 - DIABETES MELLITUS DUE TO UNDERLYING CONDITION W FOOT ULCER; L97.501 - NON-PRS CHR ULCER OTH PRT UNSP FOOT LIMITED TO BRKDWN SKIN Status: Acute Current Visit: Yes Qualifiers: Diabetic foot ulcer location: unspecified part of foot Laterality: right Qualified Code(s): E08.621 - Diabetes mellitus due to underlying condition with foot ulcer; L97.511 - Non-pressure chronic ulcer of other part of right foot limited to breakdown of skin (3) Obesity SNOMED Code(s): 243131208, 879944110 Code(s): E66.9 - OBESITY, UNSPECIFIED Status: Chronic Current Visit: Yes (4) Diabetes SNOMED Code(s): 34997994 Code(s): E11.9 - TYPE 2 DIABETES MELLITUS WITHOUT COMPLICATIONS Status: Acute Current Visit: No (5) Hyperlipemia SNOMED Code(s): 39384861 Code(s): E78.5 - HYPERLIPIDEMIA, UNSPECIFIED Status: Chronic Current Visit: No (6) Hypertension SNOMED Code(s): 80366815 Code(s): I10 - ESSENTIAL (PRIMARY) HYPERTENSION Status: Chronic Current Visit: No (7) Neuropathy SNOMED Code(s): 916716614 Code(s): G62.9 - POLYNEUROPATHY, UNSPECIFIED Status: Chronic Current Visit: No (8) Hypomagnesemia SNOMED Code(s): 895801984 Code(s): E83.42 - HYPOMAGNESEMIA Status: Acute Current Visit: Yes - Problem List Review Problem List Initiated/Reviewed/Updated: Yes - Plan Plan:: This 55-year-old female admitted with cellulitis and right foot diabetic ulcer. 1. Cellulitis/right foot diabetic ulcer -Cultures are growing MSSA , anaerobic culture growing potential organism. -Continue Zosyn 4.5 gm will extend to have continuous infusion. -Dr. Pete on consult, appreciate his recommendations. Wound VAC in place, will have to swap with home device before dc -Wound care to left foot. Wound VAC to right foot. -PICC line i appointment has been changed to Saturday afternoon. 2. DM type II, uncontrolled -Blood sugar checks 3 times daily before meals and as needed -NovoLog sliding scale insulin with meals -Continue Novolin H 20 units twice daily -ADA diet 3. Hypertension/HLD -Lisinopril -Continue statin 4. GERD history esophageal ulcer -Continue Protonix -Continue Carafate with meals and at bedtime -GI cocktail as needed -Keep diet light. -H-pylori stool antigen negative VTE prophylaxis: Lovenox paused, as patient is having increasing menses bleeding. CODE STATUS: Full code Dispo: Discharge pending anaerobic cultures.
[2020-09-17] MEDS: atorvaSTATin 20 MG Tab PO SCH (20:00)
[2020-09-18] MEDS: Piperacillin/Tazobactam 4.5 GM in Sodium Chloride 0.9% 100 ML IV SCH ×4 (00:50→18:48)
[2020-09-18] MEDS: Pantoprazole 40 MG in Sodium Chloride 0.9% 10 ML IV SCH (06:27)
[2020-09-18] MEDS: Sucralfate Suspension 1 GM/10 ML Cup PO SCH ×4 (06:39→21:16)
[2020-09-18 07:17] LABS: BLOOD UREA NITROGEN,BUN 15 mg/dL (7.0-18.0); CARBON DIOXIDE,CO2 27.2 mmol/L (21.0-32.0); CHLORIDE,CL 103 mmol/L (98-107); GLUCOSE RANDOM 173 mg/dL (74-106); SODIUM,NA 140 mmol/L (136-145)
[2020-09-18] MEDS: Insulin Aspart 100 Units/ML 3 ML Pen SUBCUT SCH ×3 (07:43→17:27)
[2020-09-18] MEDS: Insulin Isophane NPH, Human 100 Units/ML 10 ML Vial SUBCUT SCH ×2 (07:43→17:26)
[2020-09-18] MEDS: Gabapentin 300 MG Cap PO SCH (09:10)
[2020-09-18] MEDS: DULoxetine 30 MG Cap PO SCH (09:10)
--- NOTE | 2020-09-18 14:13 | PCM.PN ---
- General Info Date of Service: 09/18/20 - Review of Systems Systems Review Comment:: no complaints - Patient Data Vitals - Most Recent: Last Vital Signs Temp 36.4 C 09/18/20 11:55 Pulse 81 09/18/20 11:55 Resp 17 09/18/20 11:55 BP 128/79 09/18/20 11:55 Pulse Ox 93 L 09/18/20 11:55 Weight - Most Recent: 102.965 kg I&O - Last 24 Hours: Intake & Output 09/17/20 09/18/20 09/18/20 22:59 06:59 14:59 Intake Total 1250 850 Output Total 1200 1000 Balance 50 -150 Lab Results Last 24 Hours: Laboratory Results - last 24 hr 09/17/20 09/18/20 09/18/20 Range/Units 17:40 06:20 06:20 WBC 9.25 (4.0-11.0) K/uL RBC 4.33 (4.30-5.90) M/uL Hgb 13.5 (12.0-16.0) g/dL Hct 40.3 (36.0-46.0) % MCV 93.1 (80.0-98.0) fL MCH 31.2 (27.0-32.0) pg MCHC 33.5 (31.0-37.0) g/dL RDW Std Deviation 41.3 (28.0-62.0) fl RDW Coeff of Olimpia 12 (11.0-15.0) % Plt Count 397 (150-400) K/uL MPV 10.00 (7.40-12.00) fL Neut % (Auto) 64.5 (48.0-80.0) % Lymph % (Auto) 23.0 (16.0-40.0) % [place] % (Auto) 7.5 (0.0-15.0) % Eos % (Auto) 4.6 (0.0-7.0) % Baso % (Auto) 0.4 (0.0-1.5) % Neut # (Auto) 6.0 H (1.4-5.7) K/uL Lymph # (Auto) 2.1 (0.6-2.4) K/uL [place] # (Auto) 0.7 (0.0-0.8) K/uL Eos # (Auto) 0.4 (0.0-0.7) K/uL Baso # (Auto) 0.0 (0.0-0.1) K/uL Nucleated RBC % 0.0 /100WBC Nucleated RBCs # 0 K/uL Sodium 140 (136-145) mmol/L Potassium 4.0 (3.5-5.1) mmol/L Chloride 103 (98-107) mmol/L Carbon Dioxide 27.2 (21.0-32.0) mmol/L BUN 15 (7.0-18.0) mg/dL Creatinine 0.9 (0.6-1.0) mg/dL Est Cr Clr Drug Dosing 62.80 mL/min Estimated GFR (MDRD) > 60.0 ml/min Glucose 173 H (74-106) mg/dL POC Glucose 171 H (70-99) mg/dL Calcium 9.1 (8.5-10.1) mg/dL Phosphorus 4.6 (2.6-4.7) mg/dL Magnesium 1.4 L (1.8-2.4) mg/dL 09/18/20 09/18/20 Range/Units 06:38 11:50 WBC (4.0-11.0) K/uL RBC (4.30-5.90) M/uL Hgb (12.0-16.0) g/dL Hct (36.0-46.0) % MCV (80.0-98.0) fL MCH (27.0-32.0) pg MCHC (31.0-37.0) g/dL RDW Std Deviation (28.0-62.0) fl RDW Coeff of Olimpia (11.0-15.0) % Plt Count (150-400) K/uL MPV (7.40-12.00) fL Neut % (Auto) (48.0-80.0) % Lymph % (Auto) (16.0-40.0) % [place] % (Auto) (0.0-15.0) % Eos % (Auto) (0.0-7.0) % Baso % (Auto) (0.0-1.5) % Neut # (Auto) (1.4-5.7) K/uL Lymph # (Auto) (0.6-2.4) K/uL [place] # (Auto) (0.0-0.8) K/uL Eos # (Auto) (0.0-0.7) K/uL Baso # (Auto) (0.0-0.1) K/uL Nucleated RBC % /100WBC Nucleated RBCs # K/uL Sodium (136-145) mmol/L Potassium (3.5-5.1) mmol/L Chloride (98-107) mmol/L Carbon Dioxide (21.0-32.0) mmol/L BUN (7.0-18.0) mg/dL Creatinine (0.6-1.0) mg/dL Est Cr Clr Drug Dosing mL/min Estimated GFR (MDRD) ml/min Glucose (74-106) mg/dL POC Glucose 157 H 190 H (70-99) mg/dL Calcium (8.5-10.1) mg/dL Phosphorus (2.6-4.7) mg/dL Magnesium (1.8-2.4) mg/dL Kofi Results Last 24 Hours: Microbiology 09/08/20 17:59 Anaerobic Culture - Final Wound - Foot, Right Anaerob Gp Cocci-No Further Id Anaerobic Gnb Not B Frag Grp Pigmnt Porphyrom-Prevotella Gr 09/15/20 17:14 Helicobacter pylori Antigen - Final Stool / Feces Med Orders - Current: Current Medications Acetaminophen (Acetaminophen 325 Mg Tab) 650 mg PO Q4H PRN PRN Reason: Pain (Mild 1-3)/fever Last Admin: 09/13/20 10:22 Dose: 650 mg Documented by: Atorvastatin Calcium (Atorvastatin 20 Mg Tab) 20 mg PO BEDTIME ON LICENSE OF [facility] Last Admin: 09/17/20 20:00 Dose: 20 mg Documented by: Al Hydroxide/Mg Hydroxide 15 (ml/ Lidocaine HCl 5 ml) 0 ml PO Q8H PRN PRN Reason: GI pain Last Admin: 09/14/20 11:37 Dose: 20 each Documented by: Dextrose/Water (50% Dextrose In Water 50 Ml Syringe) 50 ml IV ASDIRECTED PRN PRN Reason: Hypoglycemia Docusate Sodium (Docusate Sodium 100 Mg Cap) 100 mg PO BID PRN PRN Reason: Constipation Duloxetine HCl (Duloxetine 30 Mg Cap) 30 mg PO DAILY ON LICENSE OF [facility] Last Admin: 09/18/20 09:10 Dose: 30 mg Documented by: Gabapentin (Gabapentin 300 Mg Cap) 300 mg PO DAILY ON LICENSE OF [facility] Last Admin: 09/18/20 09:10 Dose: 300 mg Documented by: Glucagon (Glucagon,Human Recombinant 1 Mg Vial) 1 mg IM ASDIRECTED PRN PRN Reason: Hypoglycemia Piperacillin Sod/Tazobactam (Sod 4.5 gm/ Sodium Chloride) 100 mls @ 25 mls/hr IV Q6H ON LICENSE OF [facility] Last Admin: 09/18/20 12:40 Dose: 25 mls/hr Documented by: Pantoprazole Sodium 40 mg/ (Sodium Chloride) 10 mls @ 300 mls/hr IV Q24H ON LICENSE OF [facility] Last Admin: 09/18/20 06:27 Dose: 300 mls/hr Documented by: Insulin Aspart (Insulin Aspart 100 Units/Ml 3 Ml Pen) 0 unit SUBCUT TIDAC ON LICENSE OF [facility]; Protocol Last Admin: 09/18/20 11:56 Dose: 3 units Documented by: Insulin Human NPH (Insulin Isophane Nph, Human 100 Units/Ml 10 Ml Vial) 20 unit SUBCUT BIDAC ON LICENSE OF [facility] Last Admin: 09/18/20 07:43 Dose: 20 units Documented by: Morphine Sulfate (Morphine 2 Mg/Ml Syringe) 2 mg IVPUSH Q2H PRN PRN Reason: Pain (severe 7-10) Last Admin: 09/13/20 16:11 Dose: 2 mg Documented by: Ondansetron HCl (Ondansetron 4 Mg/2 Ml Sdv) 4 mg IVPUSH Q4H PRN PRN Reason: Nausea Oxycodone HCl (Oxycodone 5 Mg Tab) 5 mg PO Q4H PRN PRN Reason: Pain (moderate 4-6) Last Admin: 09/13/20 13:56 Dose: 5 mg Documented by: Sodium Chloride (Sodium Chloride 0.9% 2.5 Ml Syringe) 2.5 ml FLUSH ASDIRECTED PRN PRN Reason: Keep Vein Open Sucralfate (Sucralfate Suspension 1 Gm/10 Ml Cup) 1 gm PO QIDACANDBED ON LICENSE OF [facility] Last Admin: 09/18/20 11:56 Dose: 1 gm Documented by: Discontinued Medications Bacitracin (Bacitracin Oint 28.35 Gm Tube) 1 gm TOP ONETIME ONE Stop: 09/10/20 12:41 Last Admin: 09/10/20 12:58 Dose: 1 applicful Documented by: Bupivacaine HCl (Bupivacaine 0.5% 10 Ml Sdv) Confirm Administered Dose 10 ml .ROUTE .STK-MED ONE Stop: 09/08/20 16:48 Al Hydroxide/Mg Hydroxide 15 (ml/ Lidocaine HCl 5 ml) 0 ml PO ONETIME ONE Stop: 09/13/20 11:01 Last Admin: 09/13/20 12:01 Dose: 5 each Documented by: Al Hydroxide/Mg Hydroxide 15 ml/ Metoclopramide HCl 5 mg/Lidocaine HCl 5 ml 0 ml PO ONETIME ONE Stop: 09/13/20 14:46 Last Admin: 09/13/20 15:00 Dose: 10 each Documented by: Enoxaparin Sodium (Enoxaparin 40 Mg/0.4 Ml Syringe) 40 mg SUBCUT Q24H МАРИНА Last Admin: 09/15/20 17:02 Dose: 40 mg Documented by: Famotidine (Famotidine 20 Mg/2 Ml Sdv) 40 mg IVPUSH ONETIME ONE Stop: 09/08/20 14:04 Last Admin: 09/08/20 14:25 Dose: 40 mg Documented by: Fentanyl (Fentanyl 100 Mcg/2 Ml Sdv) Confirm Administered Dose 100 mcg .ROUTE .STK-MED ONE Stop: 09/08/20 17:33 Gadobenate Dimeglumine (Gadobenate Dimeglumine 529 Mg/Ml 20 Ml Sdv) 20 ml IVPUSH ONETIME STA Stop: 09/08/20 07:38 Last Admin: 09/08/20 07:39 Dose: 20 ml Documented by: Gadobenate Dimeglumine (Gadobenate Dimeglumine 529 Mg/Ml 20 Ml Sdv) 20 ml IVPUSH ONETIME STA Stop: 09/12/20 07:26 Last Admin: 09/12/20 07:27 Dose: 20 ml Documented by: Sodium Chloride (Normal Saline) 1,000 mls @ 999 mls/hr IV .Bolus ONE Stop: 09/07/20 12:43 Last Admin: 09/07/20 12:25 Dose: 999 mls/hr Documented by: Vancomycin HCl 1,500 mg/ (Sodium Chloride) 100 mls @ 100 mls/hr IV ONETIME ONE Stop: 09/07/20 12:42 Last Admin: 09/07/20 13:22 Dose: Not Given Documented by: Piperacillin Sod/Tazobactam (Sod 3.375 gm/ Sodium Chloride) 50 mls @ 100 mls/hr IV ONETIME ONE Stop: 09/07/20 12:12 Last Admin: 09/07/20 12:27 Dose: 100 mls/hr Documented by: Magnesium Sulfate 2 gm/ Premix 50 mls @ 50 mls/hr IV ONETIME ONE Stop: 09/07/20 13:51 Last Admin: 09/07/20 14:00 Dose: 50 mls/hr Documented by: Vancomycin HCl 1.5 gm/ Premix 300 mls @ 200 mls/hr IV ONETIME ONE Stop: 09/07/20 14:50 Last Admin: 09/07/20 14:00 Dose: 200 mls/hr Documented by: Sodium Chloride (Normal Saline) 1,000 mls @ 125 mls/hr IV Q8H ON LICENSE OF [facility] Last Admin: 09/09/20 13:43 Dose: Not Given Documented by: Piperacillin Sod/Tazobactam (Sod 4.5 gm/ Sodium Chloride) 100 mls @ 100 mls/hr IV Q8H ON LICENSE OF [facility] Last Admin: 09/08/20 04:29 Dose: 100 mls/hr Documented by: Vancomycin HCl 1.5 gm/ Premix 300 mls @ 200 mls/hr IV Q12H ON LICENSE OF [facility] Stop: 09/09/20 16:00 Last Admin: 09/09/20 14:20 Dose: 200 mls/hr Documented by: Piperacillin Sod/Tazobactam (Sod 4.5 gm/ Sodium Chloride) 100 mls @ 100 mls/hr IV Q6H ON LICENSE OF [facility] Last Admin: 09/10/20 09:39 Dose: 100 mls/hr Documented by: Vancomycin HCl 1.5 gm/ Premix 300 mls @ 200 mls/hr IV Q8H ON LICENSE OF [facility] Last Admin: 09/10/20 05:09 Dose: 200 mls/hr Documented by: Magnesium Sulfate (Magnesium Sulfate In Water 2 Gm/50 Ml) 2 gm in 50 mls @ 50 mls/hr IV ONETIME ONE Stop: 09/10/20 11:59 Last Admin: 09/10/20 12:59 Dose: 50 mls/hr Documented by: Cefazolin Sodium/Dextrose 2 gm (/ Premix) 50 mls @ 100 mls/hr IV Q8H ON LICENSE OF [facility] Last Admin: 09/12/20 10:40 Dose: 100 mls/hr Documented by: Magnesium Sulfate (Magnesium Sulfate In Water 2 Gm/50 Ml) 2 gm in 50 mls @ 50 mls/hr IV ONETIME ONE Stop: 09/11/20 11:44 Last Admin: 09/11/20 11:41 Dose: 50 mls/hr Documented by: Magnesium Sulfate (Magnesium Sulfate In Water 2 Gm/50 Ml) 2 gm in 50 mls @ 50 mls/hr IV ONETIME ONE Stop: 09/12/20 09:28 Last Admin: 09/12/20 09:27 Dose: 50 mls/hr Documented by: Magnesium Sulfate (Magnesium Sulfate In Water 4 Gm/100 Ml) 4 gm in 100 mls @ 50 mls/hr IV ONETIME ONE Stop: 09/13/20 10:29 Last Admin: 09/13/20 09:10 Dose: 50 mls/hr Documented by: Pantoprazole Sodium 40 mg/ (Sodium Chloride) 10 mls @ 300 mls/hr IV NOW ONE Stop: 09/13/20 14:16 Last Admin: 09/13/20 14:28 Dose: 300 mls/hr Documented by: Magnesium Sulfate (Magnesium Sulfate In Water 2 Gm/50 Ml) 2 gm in 50 mls @ 50 mls/hr IV ONETIME ONE Stop: 09/16/20 08:58 Last Admin: 09/16/20 08:55 Dose: 50 mls/hr Documented by: Iopamidol (Iopamidol 755 Mg/Ml 500 Ml Multipack Bottle) 50 ml IVPUSH ONETIME STA Stop: 09/13/20 17:59 Last Admin: 09/13/20 17:59 Dose: 50 ml Documented by: Lidocaine HCl (Lidocaine 1% 20 Ml Mdv) Confirm Administered Dose 20 ml .ROUTE .STK-MED ONE Stop: 09/08/20 16:48 Lisinopril (Lisinopril 10 Mg Tab) 20 mg PO BID ON LICENSE OF [facility] Last Admin: 09/13/20 21:30 Dose: Not Given Documented by: Metoclopramide HCl (Metoclopramide 10 Mg/2 Ml Sdv) 10 mg IVPUSH ONETIME ONE Stop: 09/08/20 14:06 Last Admin: 09/08/20 14:25 Dose: 10 mg Documented by: Midazolam HCl (Midazolam 1 Mg/Ml 2 Ml Sdv) Confirm Administered Dose 2 mg .ROUTE .STK-MED ONE Stop: 09/08/20 17:33 Morphine Sulfate (Morphine 2 Mg/Ml Syringe) 2 mg IVPUSH ONETIME ONE Stop: 09/13/20 14:13 Last Admin: 09/13/20 14:32 Dose: Not Given Documented by: Ondansetron HCl (Ondansetron 4 Mg/2 Ml Sdv) Confirm Administered Dose 4 mg .ROUTE .STK-MED ONE Stop: 09/07/20 13:59 Last Admin: 09/07/20 14:03 Dose: Not Given Documented by: Ondansetron HCl (Ondansetron 4 Mg/2 Ml Sdv) 4 mg IVPUSH ONETIME ONE Stop: 09/07/20 14:01 Last Admin: 09/07/20 14:03 Dose: 4 mg Documented by: Oxycodone/Acetaminophen (Acetaminophen/Oxycodone 325-5 Mg Tab) 2 tab PO ONETIME ONE Stop: 09/07/20 11:44 Last Admin: 09/07/20 12:25 Dose: 2 tab Documented by: Pantoprazole Sodium (Pantoprazole 40 Mg Tab.Cr) 40 mg PO DAILY МАРИНА Last Admin: 09/13/20 11:32 Dose: 40 mg Documented by: Sodium Chloride (Sodium Chloride 0.9% 10 Ml Syringe) 10 ml FLUSH ASDIRECTED PRN PRN Reason: Keep Vein Open Last Admin: 09/07/20 12:27 Dose: 10 ml Documented by: Sodium Chloride (Sodium Chloride 0.9% 2.5 Ml Syringe) 2.5 ml FLUSH ASDIRECTED PRN PRN Reason: Keep Vein Open Last Admin: 09/07/20 12:27 Dose: 2.5 ml Documented by: Vancomycin HCl (Pharmacy To Dose - Vancomycin) 1 dose .XX ASDIRECTED МАРИНА - Exam General: Alert, Oriented Neck: Supple Lungs: Clear to Auscultation, Normal Respiratory Effort Cardiovascular: Regular Rate, Regular Rhythm GI/Abdominal Exam: Soft, Non-Tender, No Distention Extremities: Non-Tender, No Pedal Edema Skin: Warm, Dry, Intact Neurological: No New Focal Deficit - Patient Data Lab Results Last 24 hrs: Laboratory Results - last 24 hr 09/17/20 09/18/20 09/18/20 Range/Units 17:40 06:20 06:20 WBC 9.25 (4.0-11.0) K/uL RBC 4.33 (4.30-5.90) M/uL Hgb 13.5 (12.0-16.0) g/dL Hct 40.3 (36.0-46.0) % MCV 93.1 (80.0-98.0) fL MCH 31.2 (27.0-32.0) pg MCHC 33.5 (31.0-37.0) g/dL RDW Std Deviation 41.3 (28.0-62.0) fl RDW Coeff of [place]limpia 12 (11.0-15.0) % Plt Count 397 (150-400) K/uL MPV 10.00 (7.40-12.00) fL Neut % (Auto) 64.5 (48.0-80.0) % Lymph % (Auto) 23.0 (16.0-40.0) % [place] % (Auto) 7.5 (0.0-15.0) % Eos % (Auto) 4.6 (0.0-7.0) % Baso % (Auto) 0.4 (0.0-1.5) % Neut # (Auto) 6.0 H (1.4-5.7) K/uL Lymph # (Auto) 2.1 (0.6-2.4) K/uL [place] # (Auto) 0.7 (0.0-0.8) K/uL Eos # (Auto) 0.4 (0.0-0.7) K/uL Baso # (Auto) 0.0 (0.0-0.1) K/uL Nucleated RBC % 0.0 /100WBC Nucleated RBCs # 0 K/uL Sodium 140 (136-145) mmol/L Potassium 4.0 (3.5-5.1) mmol/L Chloride 103 (98-107) mmol/L Carbon Dioxide 27.2 (21.0-32.0) mmol/L BUN 15 (7.0-18.0) mg/dL Creatinine 0.9 (0.6-1.0) mg/dL Est Cr Clr Drug Dosing 62.80 mL/min Estimated GFR (MDRD) > 60.0 ml/min Glucose 173 H (74-106) mg/dL POC Glucose 171 H (70-99) mg/dL Calcium 9.1 (8.5-10.1) mg/dL Phosphorus 4.6 (2.6-4.7) mg/dL Magnesium 1.4 L (1.8-2.4) mg/dL 09/18/20 09/18/20 Range/Units 06:38 11:50 WBC (4.0-11.0) K/uL RBC (4.30-5.90) M/uL Hgb (12.0-16.0) g/dL Hct (36.0-46.0) % MCV (80.0-98.0) fL MCH (27.0-32.0) pg MCHC (31.0-37.0) g/dL RDW Std Deviation (28.0-62.0) fl RDW Coeff of [place]limpia (11.0-15.0) % Plt Count (150-400) K/uL MPV (7.40-12.00) fL Neut % (Auto) (48.0-80.0) % Lymph % (Auto) (16.0-40.0) % [place] % (Auto) (0.0-15.0) % Eos % (Auto) (0.0-7.0) % Baso % (Auto) (0.0-1.5) % Neut # (Auto) (1.4-5.7) K/uL Lymph # (Auto) (0.6-2.4) K/uL [place] # (Auto) (0.0-0.8) K/uL Eos # (Auto) (0.0-0.7) K/uL Baso # (Auto) (0.0-0.1) K/uL Nucleated RBC % /100WBC Nucleated RBCs # K/uL Sodium (136-145) mmol/L Potassium (3.5-5.1) mmol/L Chloride (98-107) mmol/L Carbon Dioxide (21.0-32.0) mmol/L BUN (7.0-18.0) mg/dL Creatinine (0.6-1.0) mg/dL Est Cr Clr Drug Dosing mL/min Estimated GFR (MDRD) ml/min Glucose (74-106) mg/dL POC Glucose 157 H 190 H (70-99) mg/dL Calcium (8.5-10.1) mg/dL Phosphorus (2.6-4.7) mg/dL Magnesium (1.8-2.4) mg/dL Result Diagrams: 09/18/20 06:20 09/18/20 06:20 Kofi Results Last 24 hrs: Microbiology 09/08/20 17:59 Anaerobic Culture - Final Wound - Foot, Right Anaerob Gp Cocci-No Further Id Anaerobic Gnb Not B Frag Grp Pigmnt Porphyrom-Prevotella Gr 09/15/20 17:14 Helicobacter pylori Antigen - Final Stool / Feces Sepsis Event Note - Evaluation Sepsis Screening Result: No Definite Risk - Focused Exam Vital Signs: Vital Signs Temp Pulse Resp BP Pulse Ox 09/18/20 11:55 36.4 C 81 17 128/79 93 L 09/18/20 07:35 36.4 C 77 17 140/68 93 L 09/18/20 03:45 35.8 C L 81 16 131/83 94 L - Problem List Review Problem List Initiated/Reviewed/Updated: Yes - Plan Plan:: This 55-year-old female admitted with cellulitis and right foot diabetic ulcer. 1. Cellulitis/right foot diabetic ulcer -Cultures are growing MSSA , awaiting anaerobic culture -Continue Zosyn 4.5 gm will extend to have continuous infusion. -Dr. Pete on consult, appreciate his recommendations. Wound VAC in place, will have to swap with home device before dc -Wound care to left foot. Wound VAC to right foot. -PICC line appointment is on Saturday afternoon. 2. DM type II, uncontrolled -Blood sugar checks 3 times daily before meals and as needed -NovoLog sliding scale insulin with meals -Continue Novolin H 20 units twice daily -ADA diet 3. Hypertension/HLD -Lisinopril -Continue statin 4. GERD history esophageal ulcer -Continue Protonix -Continue Carafate with meals and at bedtime -GI cocktail as needed -Keep diet light. -H-pylori stool antigen negative VTE prophylaxis: Lovenox paused, as patient is having increasing menses bleeding. CODE STATUS: Full code Dispo: Discharge pending anaerobic cultures.
[2020-09-18] MEDS: atorvaSTATin 20 MG Tab PO SCH (21:15)
[2020-09-19] MEDS: Piperacillin/Tazobactam 4.5 GM in Sodium Chloride 0.9% 100 ML IV SCH ×2 (00:48→06:26)
[2020-09-19] MEDS: Pantoprazole 40 MG in Sodium Chloride 0.9% 10 ML IV SCH (06:29)
[2020-09-19] MEDS: Sucralfate Suspension 1 GM/10 ML Cup PO SCH ×4 (06:33→20:41)
[2020-09-19] MEDS: Insulin Aspart 100 Units/ML 3 ML Pen SUBCUT SCH ×3 (07:32→17:43)
[2020-09-19 07:43] LABS: CARBON DIOXIDE,CO2 28.7 mmol/L (21.0-32.0); POTASSIUM,K 3.8 mmol/L (3.5-5.1)
[2020-09-19] MEDS: Insulin Isophane NPH, Human 100 Units/ML 10 ML Vial SUBCUT SCH ×2 (08:18→17:44)
[2020-09-19] MEDS: DULoxetine 30 MG Cap PO SCH (08:29)
[2020-09-19] MEDS ORDERED: Magnesium Sulfate/Water 4 GM/100 ML BAG IV ONE (08:30)
[2020-09-19] MEDS: Gabapentin 300 MG Cap PO SCH (08:30)
--- NOTE | 2020-09-19 10:05 | PCM.PN ---
- General Info Date of Service: 09/19/20 Admission Dx/Problem (Free Text): Admission Diagnosis/Problem Admission Diagnosis/Problem Diabetic foot ulcer Subjective Update: Doing well today, no concerns. eager to leave. Antibiotics changes today with culture results. Home tomorrow Functional Status: Reports: Pain Controlled, Tolerating Diet, Ambulating, Urinating - Review of Systems General: Reports: No Symptoms. Denies: Weakness, Fatigue, Malaise Pulmonary: Reports: No Symptoms. Denies: Shortness of Breath Cardiovascular: Reports: No Symptoms. Denies: Chest Pain Gastrointestinal: Reports: No Symptoms. Denies: Abdominal Pain, Nausea, Vomiting Genitourinary: Reports: No Symptoms Musculoskeletal: Reports: No Symptoms Skin: Reports: No Symptoms Neurological: Reports: No Symptoms Psychiatric: Reports: No Symptoms - Patient Data Vitals - Most Recent: Last Vital Signs Temp 97.9 F 09/19/20 08:03 Pulse 72 09/19/20 08:03 Resp 16 09/19/20 08:03 BP 137/81 09/19/20 08:03 Pulse Ox 94 L 09/19/20 08:03 Weight - Most Recent: 102.965 kg I&O - Last 24 Hours: Intake & Output 09/18/20 09/19/20 09/19/20 22:59 06:59 14:59 Intake Total 1400 890 Output Total 1250 1100 Balance 150 -210 Lab Results Last 24 Hours: Laboratory Results - last 24 hr 09/18/20 09/18/20 09/19/20 Range/Units 11:50 17:24 06:36 WBC (4.0-11.0) K/uL RBC (4.30-5.90) M/uL Hgb (12.0-16.0) g/dL Hct (36.0-46.0) % MCV (80.0-98.0) fL MCH (27.0-32.0) pg MCHC (31.0-37.0) g/dL RDW Std Deviation (28.0-62.0) fl RDW Coeff of Olimpia (11.0-15.0) % Plt Count (150-400) K/uL MPV (7.40-12.00) fL Neut % (Auto) (48.0-80.0) % Lymph % (Auto) (16.0-40.0) % [place] % (Auto) (0.0-15.0) % Eos % (Auto) (0.0-7.0) % Baso % (Auto) (0.0-1.5) % Neut # (Auto) (1.4-5.7) K/uL Lymph # (Auto) (0.6-2.4) K/uL [place] # (Auto) (0.0-0.8) K/uL Eos # (Auto) (0.0-0.7) K/uL Baso # (Auto) (0.0-0.1) K/uL Nucleated RBC % /100WBC Nucleated RBCs # K/uL Sodium (136-145) mmol/L Potassium (3.5-5.1) mmol/L Chloride (98-107) mmol/L Carbon Dioxide (21.0-32.0) mmol/L BUN (7.0-18.0) mg/dL Creatinine (0.6-1.0) mg/dL Est Cr Clr Drug Dosing mL/min Estimated GFR (MDRD) ml/min Glucose (74-106) mg/dL POC Glucose 190 H 178 H 145 H (70-99) mg/dL Calcium (8.5-10.1) mg/dL Magnesium (1.8-2.4) mg/dL 09/19/20 09/19/20 Range/Units 07:13 07:13 WBC 8.54 (4.0-11.0) K/uL RBC 4.29 L (4.30-5.90) M/uL Hgb 13.3 (12.0-16.0) g/dL Hct 39.9 (36.0-46.0) % MCV 93.0 (80.0-98.0) fL MCH 31.0 (27.0-32.0) pg MCHC 33.3 (31.0-37.0) g/dL RDW Std Deviation 41.5 (28.0-62.0) fl RDW Coeff of [place]limpia 12 (11.0-15.0) % Plt Count 397 (150-400) K/uL MPV 9.90 (7.40-12.00) fL Neut % (Auto) 56.0 (48.0-80.0) % Lymph % (Auto) 29.6 (16.0-40.0) % [place] % (Auto) 8.3 (0.0-15.0) % Eos % (Auto) 5.7 (0.0-7.0) % Baso % (Auto) 0.4 (0.0-1.5) % Neut # (Auto) 4.8 (1.4-5.7) K/uL Lymph # (Auto) 2.5 H (0.6-2.4) K/uL [place] # (Auto) 0.7 (0.0-0.8) K/uL Eos # (Auto) 0.5 (0.0-0.7) K/uL Baso # (Auto) 0.0 (0.0-0.1) K/uL Nucleated RBC % 0.0 /100WBC Nucleated RBCs # 0 K/uL Sodium 140 (136-145) mmol/L Potassium 3.8 (3.5-5.1) mmol/L Chloride 104 (98-107) mmol/L Carbon Dioxide 28.7 (21.0-32.0) mmol/L BUN 15 (7.0-18.0) mg/dL Creatinine 1.0 (0.6-1.0) mg/dL Est Cr Clr Drug Dosing 56.53 mL/min Estimated GFR (MDRD) 57.4 ml/min Glucose 160 H (74-106) mg/dL POC Glucose (70-99) mg/dL Calcium 8.9 (8.5-10.1) mg/dL Magnesium 1.4 L (1.8-2.4) mg/dL Kofi Results Last 24 Hours: Microbiology 09/08/20 17:59 Anaerobic Culture - Final Wound - Foot, Right Anaerob Gp Cocci-No Further Id Anaerobic Gnb Not B Frag Grp Pigmnt Porphyrom-Prevotella Gr Med Orders - Current: Current Medications Acetaminophen (Acetaminophen 325 Mg Tab) 650 mg PO Q4H PRN PRN Reason: Pain (Mild 1-3)/fever Last Admin: 09/13/20 10:22 Dose: 650 mg Documented by: Atorvastatin Calcium (Atorvastatin 20 Mg Tab) 20 mg PO BEDTIME МАРИНА Last Admin: 09/18/20 21:15 Dose: 20 mg Documented by: Al Hydroxide/Mg Hydroxide 15 (ml/ Lidocaine HCl 5 ml) 0 ml PO Q8H PRN PRN Reason: GI pain Last Admin: 09/14/20 11:37 Dose: 20 each Documented by: Dextrose/Water (50% Dextrose In Water 50 Ml Syringe) 50 ml IV ASDIRECTED PRN PRN Reason: Hypoglycemia Docusate Sodium (Docusate Sodium 100 Mg Cap) 100 mg PO BID PRN PRN Reason: Constipation Duloxetine HCl (Duloxetine 30 Mg Cap) 30 mg PO DAILY [facility] Last Admin: 09/19/20 08:29 Dose: 30 mg Documented by: Gabapentin (Gabapentin 300 Mg Cap) 300 mg PO DAILY [facility] Last Admin: 09/19/20 08:30 Dose: 300 mg Documented by: Glucagon (Glucagon,Human Recombinant 1 Mg Vial) 1 mg IM ASDIRECTED PRN PRN Reason: Hypoglycemia Pantoprazole Sodium 40 mg/ (Sodium Chloride) 10 mls @ 300 mls/hr IV Q24H [facility] Last Admin: 09/19/20 06:29 Dose: 300 mls/hr Documented by: Magnesium Sulfate (Magnesium Sulfate In Water 4 Gm/100 Ml) 4 gm in 100 mls @ 50 mls/hr IV ONETIME ONE Stop: 09/19/20 10:29 Last Admin: 09/19/20 09:29 Dose: 50 mls/hr Documented by: Insulin Aspart (Insulin Aspart 100 Units/Ml 3 Ml Pen) 0 unit SUBCUT TIDAC [facility]; Protocol Last Admin: 09/19/20 07:32 Dose: Not Given Documented by: Insulin Human NPH (Insulin Isophane Nph, Human 100 Units/Ml 10 Ml Vial) 20 unit SUBCUT BIDAC [facility] Last Admin: 09/19/20 08:18 Dose: 20 units Documented by: Morphine Sulfate (Morphine 2 Mg/Ml Syringe) 2 mg IVPUSH Q2H PRN PRN Reason: Pain (severe 7-10) Last Admin: 09/13/20 16:11 Dose: 2 mg Documented by: Ondansetron HCl (Ondansetron 4 Mg/2 Ml Sdv) 4 mg IVPUSH Q4H PRN PRN Reason: Nausea Oxycodone HCl (Oxycodone 5 Mg Tab) 5 mg PO Q4H PRN PRN Reason: Pain (moderate 4-6) Last Admin: 09/13/20 13:56 Dose: 5 mg Documented by: Sodium Chloride (Sodium Chloride 0.9% 2.5 Ml Syringe) 2.5 ml FLUSH ASDIRECTED PRN PRN Reason: Keep Vein Open Sucralfate (Sucralfate Suspension 1 Gm/10 Ml Cup) 1 gm PO QIDACANDBED [facility] Last Admin: 09/19/20 06:33 Dose: 1 gm Documented by: Discontinued Medications Bacitracin (Bacitracin Oint 28.35 Gm Tube) 1 gm TOP ONETIME ONE Stop: 09/10/20 12:41 Last Admin: 09/10/20 12:58 Dose: 1 applicful Documented by: Bupivacaine HCl (Bupivacaine 0.5% 10 Ml Sdv) Confirm Administered Dose 10 ml .ROUTE .STK-MED ONE Stop: 09/08/20 16:48 Al Hydroxide/Mg Hydroxide 15 (ml/ Lidocaine HCl 5 ml) 0 ml PO ONETIME ONE Stop: 09/13/20 11:01 Last Admin: 09/13/20 12:01 Dose: 5 each Documented by: Al Hydroxide/Mg Hydroxide 15 ml/ Metoclopramide HCl 5 mg/Lidocaine HCl 5 ml 0 ml PO ONETIME ONE Stop: 09/13/20 14:46 Last Admin: 09/13/20 15:00 Dose: 10 each Documented by: Enoxaparin Sodium (Enoxaparin 40 Mg/0.4 Ml Syringe) 40 mg SUBCUT Q24H [facility] Last Admin: 09/15/20 17:02 Dose: 40 mg Documented by: Famotidine (Famotidine 20 Mg/2 Ml Sdv) 40 mg IVPUSH ONETIME ONE Stop: 09/08/20 14:04 Last Admin: 09/08/20 14:25 Dose: 40 mg Documented by: Fentanyl (Fentanyl 100 Mcg/2 Ml Sdv) Confirm Administered Dose 100 mcg .ROUTE .STK-MED ONE Stop: 09/08/20 17:33 Gadobenate Dimeglumine (Gadobenate Dimeglumine 529 Mg/Ml 20 Ml Sdv) 20 ml IVPUSH ONETIME STA Stop: 09/08/20 07:38 Last Admin: 09/08/20 07:39 Dose: 20 ml Documented by: Gadobenate Dimeglumine (Gadobenate Dimeglumine 529 Mg/Ml 20 Ml Sdv) 20 ml IVPUSH ONETIME STA Stop: 09/12/20 07:26 Last Admin: 09/12/20 07:27 Dose: 20 ml Documented by: Sodium Chloride (Normal Saline) 1,000 mls @ 999 mls/hr IV .Bolus ONE Stop: 09/07/20 12:43 Last Admin: 09/07/20 12:25 Dose: 999 mls/hr Documented by: Vancomycin HCl 1,500 mg/ (Sodium Chloride) 100 mls @ 100 mls/hr IV ONETIME ONE Stop: 09/07/20 12:42 Last Admin: 09/07/20 13:22 Dose: Not Given Documented by: Piperacillin Sod/Tazobactam (Sod 3.375 gm/ Sodium Chloride) 50 mls @ 100 mls/hr IV ONETIME ONE Stop: 09/07/20 12:12 Last Admin: 09/07/20 12:27 Dose: 100 mls/hr Documented by: Magnesium Sulfate 2 gm/ Premix 50 mls @ 50 mls/hr IV ONETIME ONE Stop: 09/07/20 13:51 Last Admin: 09/07/20 14:00 Dose: 50 mls/hr Documented by: Vancomycin HCl 1.5 gm/ Premix 300 mls @ 200 mls/hr IV ONETIME ONE Stop: 09/07/20 14:50 Last Admin: 09/07/20 14:00 Dose: 200 mls/hr Documented by: Sodium Chloride (Normal Saline) 1,000 mls @ 125 mls/hr IV Q8H [facility] Last Admin: 09/09/20 13:43 Dose: Not Given Documented by: Piperacillin Sod/Tazobactam (Sod 4.5 gm/ Sodium Chloride) 100 mls @ 100 mls/hr IV Q8H [facility] Last Admin: 09/08/20 04:29 Dose: 100 mls/hr Documented by: Vancomycin HCl 1.5 gm/ Premix 300 mls @ 200 mls/hr IV Q12H [facility] Stop: 09/09/20 16:00 Last Admin: 09/09/20 14:20 Dose: 200 mls/hr Documented by: Piperacillin Sod/Tazobactam (Sod 4.5 gm/ Sodium Chloride) 100 mls @ 100 mls/hr IV Q6H [facility] Last Admin: 09/10/20 09:39 Dose: 100 mls/hr Documented by: Vancomycin HCl 1.5 gm/ Premix 300 mls @ 200 mls/hr IV Q8H [facility] Last Admin: 09/10/20 05:09 Dose: 200 mls/hr Documented by: Magnesium Sulfate (Magnesium Sulfate In Water 2 Gm/50 Ml) 2 gm in 50 mls @ 50 mls/hr IV ONETIME ONE Stop: 09/10/20 11:59 Last Admin: 09/10/20 12:59 Dose: 50 mls/hr Documented by: Cefazolin Sodium/Dextrose 2 gm (/ Premix) 50 mls @ 100 mls/hr IV Q8H [facility] Last Admin: 09/12/20 10:40 Dose: 100 mls/hr Documented by: Magnesium Sulfate (Magnesium Sulfate In Water 2 Gm/50 Ml) 2 gm in 50 mls @ 50 mls/hr IV ONETIME ONE Stop: 09/11/20 11:44 Last Admin: 09/11/20 11:41 Dose: 50 mls/hr Documented by: Magnesium Sulfate (Magnesium Sulfate In Water 2 Gm/50 Ml) 2 gm in 50 mls @ 50 mls/hr IV ONETIME ONE Stop: 09/12/20 09:28 Last Admin: 09/12/20 09:27 Dose: 50 mls/hr Documented by: Piperacillin Sod/Tazobactam (Sod 4.5 gm/ Sodium Chloride) 100 mls @ 25 mls/hr IV Q6H [facility] Last Admin: 09/19/20 06:26 Dose: 25 mls/hr Documented by: Magnesium Sulfate (Magnesium Sulfate In Water 4 Gm/100 Ml) 4 gm in 100 mls @ 50 mls/hr IV ONETIME ONE Stop: 09/13/20 10:29 Last Admin: 09/13/20 09:10 Dose: 50 mls/hr Documented by: Pantoprazole Sodium 40 mg/ (Sodium Chloride) 10 mls @ 300 mls/hr IV NOW ONE Stop: 09/13/20 14:16 Last Admin: 09/13/20 14:28 Dose: 300 mls/hr Documented by: Magnesium Sulfate (Magnesium Sulfate In Water 2 Gm/50 Ml) 2 gm in 50 mls @ 50 mls/hr IV ONETIME ONE Stop: 09/16/20 08:58 Last Admin: 09/16/20 08:55 Dose: 50 mls/hr Documented by: Iopamidol (Iopamidol 755 Mg/Ml 500 Ml Multipack Bottle) 50 ml IVPUSH ONETIME STA Stop: 09/13/20 17:59 Last Admin: 09/13/20 17:59 Dose: 50 ml Documented by: Lidocaine HCl (Lidocaine 1% 20 Ml Mdv) Confirm Administered Dose 20 ml .ROUTE .STK-MED ONE Stop: 09/08/20 16:48 Lisinopril (Lisinopril 10 Mg Tab) 20 mg PO BID [facility] Last Admin: 09/13/20 21:30 Dose: Not Given Documented by: Metoclopramide HCl (Metoclopramide 10 Mg/2 Ml Sdv) 10 mg IVPUSH ONETIME ONE Stop: 09/08/20 14:06 Last Admin: 09/08/20 14:25 Dose: 10 mg Documented by: Midazolam HCl (Midazolam 1 Mg/Ml 2 Ml Sdv) Confirm Administered Dose 2 mg .ROUTE .STK-MED ONE Stop: 09/08/20 17:33 Morphine Sulfate (Morphine 2 Mg/Ml Syringe) 2 mg IVPUSH ONETIME ONE Stop: 09/13/20 14:13 Last Admin: 09/13/20 14:32 Dose: Not Given Documented by: Ondansetron HCl (Ondansetron 4 Mg/2 Ml Sdv) Confirm Administered Dose 4 mg .ROUTE .STK-MED ONE Stop: 09/07/20 13:59 Last Admin: 09/07/20 14:03 Dose: Not Given Documented by: Ondansetron HCl (Ondansetron 4 Mg/2 Ml Sdv) 4 mg IVPUSH ONETIME ONE Stop: 09/07/20 14:01 Last Admin: 09/07/20 14:03 Dose: 4 mg Documented by: Oxycodone/Acetaminophen (Acetaminophen/Oxycodone 325-5 Mg Tab) 2 tab PO ONETIME ONE Stop: 09/07/20 11:44 Last Admin: 09/07/20 12:25 Dose: 2 tab Documented by: Pantoprazole Sodium (Pantoprazole 40 Mg Tab.Cr) 40 mg PO DAILY [facility] Last Admin: 09/13/20 11:32 Dose: 40 mg Documented by: Sodium Chloride (Sodium Chloride 0.9% 10 Ml Syringe) 10 ml FLUSH ASDIRECTED PRN PRN Reason: Keep Vein Open Last Admin: 09/07/20 12:27 Dose: 10 ml Documented by: Sodium Chloride (Sodium Chloride 0.9% 2.5 Ml Syringe) 2.5 ml FLUSH ASDIRECTED PRN PRN Reason: Keep Vein Open Last Admin: 09/07/20 12:27 Dose: 2.5 ml Documented by: Vancomycin HCl (Pharmacy To Dose - Vancomycin) 1 dose .XX ASDIRECTED МАРИНА - Exam General: Alert, Oriented, Cooperative, No Acute Distress Lungs: Clear to Auscultation, Normal Respiratory Effort Cardiovascular: Regular Rate, Regular Rhythm GI/Abdominal Exam: Normal Bowel Sounds, Soft, Non-Tender Extremities: Normal Inspection, Normal Range of Motion, Non-Tender, No Pedal Edema Wound/Incisions: Healing Well, Dressing Dry and Intact Neurological: No New Focal Deficit, Sensation Intact Psy/Mental Status: Normal Affect, Normal Mood - Patient Data Lab Results Last 24 hrs: Laboratory Results - last 24 hr 09/18/20 09/18/20 09/19/20 Range/Units 11:50 17:24 06:36 WBC (4.0-11.0) K/uL RBC (4.30-5.90) M/uL Hgb (12.0-16.0) g/dL Hct (36.0-46.0) % MCV (80.0-98.0) fL MCH (27.0-32.0) pg MCHC (31.0-37.0) g/dL RDW Std Deviation (28.0-62.0) fl RDW Coeff of [place]lim[place] (11.0-15.0) % Plt Count (150-400) K/uL MPV (7.40-12.00) fL Neut % (Auto) (48.0-80.0) % Lymph % (Auto) (16.0-40.0) % [place] % (Auto) (0.0-15.0) % Eos % (Auto) (0.0-7.0) % Baso % (Auto) (0.0-1.5) % Neut # (Auto) (1.4-5.7) K/uL Lymph # (Auto) (0.6-2.4) K/uL [place] # (Auto) (0.0-0.8) K/uL Eos # (Auto) (0.0-0.7) K/uL Baso # (Auto) (0.0-0.1) K/uL Nucleated RBC % /100WBC Nucleated RBCs # K/uL Sodium (136-145) mmol/L Potassium (3.5-5.1) mmol/L Chloride (98-107) mmol/L Carbon Dioxide (21.0-32.0) mmol/L BUN (7.0-18.0) mg/dL Creatinine (0.6-1.0) mg/dL Est Cr Clr Drug Dosing mL/min Estimated GFR (MDRD) ml/min Glucose (74-106) mg/dL POC Glucose 190 H 178 H 145 H (70-99) mg/dL Calcium (8.5-10.1) mg/dL Magnesium (1.8-2.4) mg/dL 09/19/20 09/19/20 Range/Units 07:13 07:13 WBC 8.54 (4.0-11.0) K/uL RBC 4.29 L (4.30-5.90) M/uL Hgb 13.3 (12.0-16.0) g/dL Hct 39.9 (36.0-46.0) % MCV 93.0 (80.0-98.0) fL MCH 31.0 (27.0-32.0) pg MCHC 33.3 (31.0-37.0) g/dL RDW Std Deviation 41.5 (28.0-62.0) fl RDW Coeff of [place] 12 (11.0-15.0) % Plt Count 397 (150-400) K/uL MPV 9.90 (7.40-12.00) fL Neut % (Auto) 56.0 (48.0-80.0) % Lymph % (Auto) 29.6 (16.0-40.0) % [place] % (Auto) 8.3 (0.0-15.0) % Eos % (Auto) 5.7 (0.0-7.0) % Baso % (Auto) 0.4 (0.0-1.5) % Neut # (Auto) 4.8 (1.4-5.7) K/uL Lymph # (Auto) 2.5 H (0.6-2.4) K/uL [place] # (Auto) 0.7 (0.0-0.8) K/uL Eos # (Auto) 0.5 (0.0-0.7) K/uL Baso # (Auto) 0.0 (0.0-0.1) K/uL Nucleated RBC % 0.0 /100WBC Nucleated RBCs # 0 K/uL Sodium 140 (136-145) mmol/L Potassium 3.8 (3.5-5.1) mmol/L Chloride 104 (98-107) mmol/L Carbon Dioxide 28.7 (21.0-32.0) mmol/L BUN 15 (7.0-18.0) mg/dL Creatinine 1.0 (0.6-1.0) mg/dL Est Cr Clr Drug Dosing 56.53 mL/min Estimated GFR (MDRD) 57.4 ml/min Glucose 160 H (74-106) mg/dL POC Glucose (70-99) mg/dL Calcium 8.9 (8.5-10.1) mg/dL Magnesium 1.4 L (1.8-2.4) mg/dL Result Diagrams: 09/19/20 07:13 09/19/20 07:13 Kofi Results Last 24 hrs: Microbiology 09/08/20 17:59 Anaerobic Culture - Final Wound - Foot, Right Anaerob Gp Cocci-No Further Id Anaerobic Gnb Not B Frag Grp Pigmnt Porphyrom-Prevotella Gr Sepsis Event Note - Evaluation Sepsis Screening Result: No Definite Risk - Focused Exam Vital Signs: Vital Signs Temp Pulse Resp BP BP Pulse Ox 09/19/20 08:03 97.9 F 72 16 137/81 94 L 09/19/20 04:59 97.3 F 85 17 121/73 95 09/18/20 23:30 97.2 F 72 17 125/66 94 L - Problem List & Annotations (1) Obesity SNOMED Code(s): 867176368, 555657198 Code(s): E66.9 - OBESITY, UNSPECIFIED Status: Chronic Current Visit: Yes (2) Neuropathy SNOMED Code(s): 374430490 Code(s): G62.9 - POLYNEUROPATHY, UNSPECIFIED Status: Chronic Current Visit: No (3) Hypertension SNOMED Code(s): 45717989 Code(s): I10 - ESSENTIAL (PRIMARY) HYPERTENSION Status: Chronic Current Visit: No (4) Diabetic ulcer of foot associated with diabetes mellitus due to underlying condition, limited to breakdown of skin SNOMED Code(s): 526248021, 838865418 Code(s): E08.621 - DIABETES MELLITUS DUE TO UNDERLYING CONDITION W FOOT ULCER; L97.501 - NON-PRS CHR ULCER OTH PRT UNSP FOOT LIMITED TO BRKDWN SKIN Status: Acute Current Visit: Yes Qualifiers: Diabetic foot ulcer location: unspecified part of foot Laterality: right Qualified Code(s): E08.621 - Diabetes mellitus due to underlying condition with foot ulcer; L97.511 - Non-pressure chronic ulcer of other part of right foot limited to breakdown of skin (5) Hyperlipemia SNOMED Code(s): 18981441 Code(s): E78.5 - HYPERLIPIDEMIA, UNSPECIFIED Status: Chronic Current Visit: No (6) Hypomagnesemia SNOMED Code(s): 538890373 Code(s): E83.42 - HYPOMAGNESEMIA Status: Acute Current Visit: Yes - Problem List Review Problem List Initiated/Reviewed/Updated: Yes - My Orders Last 24 Hours: My Active Orders 09/19/20 08:30 Magnesium Sulfate/Water [Magnesium Sulfate in Water 4 GM/100 ML] 4 gm in 100 ml IV ONETIME 09/19/20 10:00 Ertapenem [INVanz] 1 gm Sodium Chloride 0.9% [Normal Saline] 50 ml IV Q24H - Plan Plan:: This 55-year-old female admitted with cellulitis and right foot diabetic ulcer. 1. Cellulitis/right foot diabetic ulcer -Cultures are growing MSSA , anaerobic culture grew out no further identified anaerobic GP cocci, anaaerobic GNB not B fragilis and pigment porphyrom prevotella . - Stop ZOsyn and start Ertapenem 1 gm IV daily. - Home tomorrow after abx dosing then to [place] for PICC placement. She will need to come daily, check at 2 weeks outpatient if ability to de-escalate therapy. -Dr. Pete on consult, appreciate his recommendations. Wound VAC in place, will have to swap with home device before dc -Wound care to left foot. Wound VAC to right foot. -PICC line appointment is on Saturday afternoon. 2. DM type II, uncontrolled -Blood sugar checks 3 times daily before meals and as needed -NovoLog sliding scale insulin with meals -Continue Novolin H 20 units twice daily -ADA diet 3. Hypertension/HLD -Lisinopril -Continue statin 4. GERD history esophageal ulcer -Continue Protonix -Continue Carafate with meals and at bedtime -GI cocktail as needed -Keep diet light. -H-pylori stool antigen negative VTE prophylaxis: Lovenox paused, as patient is having increasing menses bleeding. CODE STATUS: Full code Dispo: Discharge am
[2020-09-19] MEDS ORDERED: Fluconazole 100 MG Tab PO ONE (10:15)
[2020-09-19] MEDS: Ertapenem 1 GM in Sodium Chloride 0.9% 50 ML IV SCH (11:01)
[2020-09-19] MEDS: atorvaSTATin 20 MG Tab PO SCH (20:41)
[2020-09-20] MEDS: Pantoprazole 40 MG in Sodium Chloride 0.9% 10 ML IV SCH (06:29)
[2020-09-20] MEDS: Sucralfate Suspension 1 GM/10 ML Cup PO SCH ×2 (06:34→10:49)
[2020-09-20] MEDS: DULoxetine 30 MG Cap PO SCH (08:19)
[2020-09-20] MEDS: Gabapentin 300 MG Cap PO SCH (08:19)
[2020-09-20] MEDS: Insulin Aspart 100 Units/ML 3 ML Pen SUBCUT SCH ×2 (08:25→11:50)
[2020-09-20] MEDS: Insulin Isophane NPH, Human 100 Units/ML 10 ML Vial SUBCUT SCH (08:27)
--- NOTE | 2020-09-20 08:55 | PCM.DCSUM1 ---
Discharge Summary - Hospital Course Brief History: This 55-year-old female with past medical history of HTN, diabetes type 2, and peripheral neuropathy presented to the ER today with complaints of increasing redness, drainage and tenderness to her right lower extremity and foot. She reports that she was reversely admitted for treatment of diabetic foot ulcers to bilateral feet more so the left previously. She reports she saw podiatry, Dr. Pete on Saturday who deroofed and debrided some of the ulcers on her feet. Reports since then the redness to her right foot has increasingly worsened with tenderness on her upper ankle and lower calf. She reports that she has no sensation to her feet. She reports that the drainage has been somewhat purulent and clear to bloody in nature. She reports she is had some subjective fevers and chills at home. No chest pain shortness of breath or neck pain. No sinus congestion or sore throat. She denies any abdominal pain or dysuria. Denies any black or bloody bowel movements and no diarrhea. She denies any neurological concerns. She reports she quit smoking in 2008 denies any alcohol use and no recreational drug use. Reports blood sugars at home have been anywhere from 160-280s. She reports she has been compliant with insulin at home along with doxycycline that she was sent home on on discharge 08/27/2020. In the ER white count elevated at 17,860 hemoglobin 14 hematocrit 41.5. Platelets 327,000. Sodium 133 potassium 3.8 magnesium 1.4 BUN 14 creatinine 1.0. Glucose 210 CRP elevated at 20.4 ESR 64. Heart rate initially on arrival to ER was noted to be 110 with IV fluids and antibiotics heart rate improved to the 90s. Blood pressure has been stable. Lactic acid 1.3. She was treated with vancomycin and Zosyn in the ER. X-ray of the foot revealed no obvious bone erosion with moderate dorsal soft tissue swelling recommended if clinical concern for osteomyelitis follow-up with contrast- enhanced MRI of the foot. She will be admitted inpatient for diabetic foot ulcer and cellulitis to her right foot. PCP Dr. Tiana Chen. Podiatry Dr. Pete - Discharge Data Discharge Date: 09/20/20 Discharge Disposition: Home, Self-Care 01 Condition: Good - Referral to Home Health Primary Care Physician: Mariela Chen MD - Discharge Diagnosis/Problem(s) (1) Obesity SNOMED Code(s): 920537569, 872928184 ICD Code: E66.9 - OBESITY, UNSPECIFIED Status: Chronic Current Visit: Yes (2) Neuropathy SNOMED Code(s): 372524781 ICD Code: G62.9 - POLYNEUROPATHY, UNSPECIFIED Status: Chronic Current Visit: No (3) Hypertension SNOMED Code(s): 19533000 ICD Code: I10 - ESSENTIAL (PRIMARY) HYPERTENSION Status: Chronic Current Visit: No (4) Diabetic ulcer of foot associated with diabetes mellitus due to underlying condition, limited to breakdown of skin SNOMED Code(s): 726334882, 707565550 ICD Code: E08.621 - DIABETES MELLITUS DUE TO UNDERLYING CONDITION W FOOT ULCER; L97.501 - NON-PRS CHR ULCER OTH PRT UNSP FOOT LIMITED TO BRKDWN SKIN Status: Acute Current Visit: Yes Qualifiers: Diabetic foot ulcer location: unspecified part of foot Laterality: right Qualified Code(s): E08.621 - Diabetes mellitus due to underlying condition with foot ulcer; L97.511 - Non-pressure chronic ulcer of other part of right foot limited to breakdown of skin (5) Hyperlipemia SNOMED Code(s): 56697711 ICD Code: E78.5 - HYPERLIPIDEMIA, UNSPECIFIED Status: Chronic Current Visit: No (6) Hypomagnesemia SNOMED Code(s): 719463747 ICD Code: E83.42 - HYPOMAGNESEMIA Status: Acute Current Visit: Yes - Patient Summary/Data Operative Procedure(s) Performed: incision and drainage abscess right foot Consults: Consultations 09/08/20 12:20 Consult to Physician [CONS] Routine 09/11/20 12:07 Consult to Wound Care Services [CONS] Routine 09/12/20 11:08 PT Evaluation and Treatment [CONS] Routine 09/19/20 11:04 Consult to Building Specialist [Consult to Diabetic Nurse Specialist] [CONS] Routine Hospital Course: Admission diagnoses Cellulitis/right foot diabetic ulcer Discharge diagnoses Cellulitis right foot diabetic ulcer possible osteomyelitis with MSSA and possible anaerobic organism growth Gastritis possible esophagitis Other PMH DM type II Hypertension HLLaverne Hernandez was admitted on 09/07/2020 and treated aggressively with vancomycin and Zosyn for diabetic foot ulcer. MRI was obtained on admission which revealed plantar ulcer overlying the second metatarsal head with irregular multilobulated abscess centered within the first webspace. Mild marrow edema and hyperenhancement involving the second metatarsal head and second proximal phalanx. Possible reactive osteitis though possible osteomyelitis developing and/or septic arthritis noted. Dr. Pete podiatry was consulted and took patient to surgery. She was continue with dressing changes and eventually wound VAC was placed. A repeat follow-up MRI continue to show increasing bone marrow edema consideration for osteomyelitis. Cultures of wound from pre and and intraoperatively showed MSSA. Ancef was started Zosyn and vancomycin were discontinued. In the following days, anaerobic cultures did grow possible organism which were send outs and she was restarted on Zosyn and Ancef discontinued. She continued to improve during this time. Today final anaerobic cultures returned no Bacteroides. Anaerobic GP cocci no third further identification possible. Anaerobic GNB not Bacteroides fragilis group and pigment porphyrom prevotella group. Discussion with Dr. Donnelly as well as pharmacy regarding appropriate antibiotics was explored. We will stop Zosyn at this time and start ertapenem 1 g IV daily for appropriate coverage. She is already had 2 weeks of in-hospital IV therapy. She will have PICC line placed in [place] today for further antibiotic therapy. She will continue daily with ertapenem for the next 2 weeks. I did contact Dr. Pete and he is aware of reevaluation needed at 2 weeks depending on the appearance of wound. He could then continue antibiotics for another 2 weeks for a total of 6 weeks therapy for osteomyelitis. He was in agreement this and appreciative of care given. She will have follow-up with PCP in 1 to 2 weeks as well. During her stay she had significant chest pain CTA and troponins were obtained. Troponins remain negative x3 CTA negative. Pain started initially after eating and she reports this felt like when she had a gastric and esophageal ulcer. She started on Protonix and Carafate which improved pain significantly. Today she has been pain-free she will continue on Protonix for another 2 weeks daily but 30 minutes before meals and continue Carafate times a day with meals and at bedtime. She to follow-up with general surgery in the future for EGD. Monitor use of NSAIDs at home. She also during her stay had menses. She reports she has not had her menses and proximately 1 year. Lovenox was held as bleeding did increase slightly but then follow normal course of her previous menses. She will have referral to CHILD CARE SPECIALIST provider to evaluate abnormal uterine bleeding. - Patient Instructions Diet: Diabetic Diet Activity: As Tolerated, Non Weight Bearing (R foot, heel walking ok. ) Driving: Do Not Drive Showering/Bathing: May Shower Notify Provider of: Fever, Increased Pain, Swelling and Redness, Drainage, Nausea and/or Vomiting Other/Special Instructions: Please come daily for IV therapy. During the week you will present to cancer/infusion center at the [facility]. On the weekend Saturday and Saturday or holiday he will present to ER admissions and he will come down to med/surge for IV infusion daily please be prepared to stay for hour to hour and a half for treatment. - Discharge Plan *PRESCRIPTION DRUG MONITORING PROGRAM REVIEWED*: Not Applicable *COPY OF PRESCRIPTION DRUG MONITORING REPORT IN PATIENT BRISEYDA: Not Applicable Prescriptions/Med Rec: Sucralfate [Carafate] 1 gm PO QIDACANDBED #60 tablet Ertapenem [INVanz] 1 gm IV Q24H #28 vial Pantoprazole Sodium [Protonix] 40 mg PO DAILY #14 tablet. Home Medications: Home Meds Insulin Regular, Human [Novolin R] unit SQ QID 08/16/20 [History] Gabapentin [Neurontin] 300 mg PO DAILY 08/24/20 [History] atorvaSTATin [Lipitor] 20 mg PO DAILY 08/24/20 [History] lisinopriL [Lisinopril] 20 mg PO BID 08/24/20 [History] metFORMIN HCl [Metformin HCl] 1,000 mg PO BIDMEALS 08/24/20 [History] DULoxetine [Cymbalta] 30 mg PO DAILY 08/26/20 [History] Acetaminophen [Tylenol] 650 mg PO Q4H PRN tablet 09/19/20 [Rx] Docusate Sodium [Colace] 100 mg PO BID PRN cap 09/19/20 [Rx] Ertapenem [INVanz] 1 gm IV Q24H #28 vial 09/19/20 [Rx] Pantoprazole Sodium [Protonix] 40 mg PO DAILY #14 tablet. 09/19/20 [Rx] Sucralfate [Carafate] 1 gm PO QIDACANDBED #60 tablet 09/19/20 [Rx] Oxygen Therapy Mode: Room Air Patient Handouts: Diabetes Mellitus and Foot Care, Ertapenem Injection, Sucralfate tablets, Pantoprazole tablets Referrals: Yariel Sanders MD [Resident] - 09/28/20 3:00 pm Erica Bowden MD [Physician] - 09/27/20 1:45 pm Asael Pete DPM [Physician] - 09/22/20 11:30 am - Discharge Summary/Plan Comment DC Time >30 min.: Yes (Setting up discharge and transport along with IV therapy and wound care.) - Patient Data Vitals - Most Recent: Last Vital Signs Temp 97.2 F 09/20/20 07:18 Pulse 80 09/20/20 07:18 Resp 14 09/20/20 07:18 BP 133/89 09/20/20 07:18 Pulse Ox 94 L 09/20/20 07:18 Weight - Most Recent: 102.965 kg I&O - Last 24 hours: Intake & Output 09/19/20 09/20/20 09/20/20 22:59 06:59 14:59 Intake Total 1100 900 Output Total 2150 950 Balance -1050 -50 Lab Results - Last 24 hrs: Laboratory Results - last 24 hr 09/19/20 09/19/20 09/20/20 Range/Units 11:27 17:41 06:36 POC Glucose 212 H 163 H 163 H (70-99) mg/dL Med Orders - Current: Current Medications Acetaminophen (Acetaminophen 325 Mg Tab) 650 mg PO Q4H PRN PRN Reason: Pain (Mild 1-3)/fever Last Admin: 09/13/20 10:22 Dose: 650 mg Documented by: Atorvastatin Calcium (Atorvastatin 20 Mg Tab) 20 mg PO BEDTIME МАРИНА Last Admin: 09/19/20 20:41 Dose: 20 mg Documented by: Al Hydroxide/Mg Hydroxide 15 (ml/ Lidocaine HCl 5 ml) 0 ml PO Q8H PRN PRN Reason: GI pain Last Admin: 09/14/20 11:37 Dose: 20 each Documented by: Dextrose/Water (50% Dextrose In Water 50 Ml Syringe) 50 ml IV ASDIRECTED PRN PRN Reason: Hypoglycemia Docusate Sodium (Docusate Sodium 100 Mg Cap) 100 mg PO BID PRN PRN Reason: Constipation Duloxetine HCl (Duloxetine 30 Mg Cap) 30 mg PO DAILY [facility] Last Admin: 09/20/20 08:19 Dose: 30 mg Documented by: Gabapentin (Gabapentin 300 Mg Cap) 300 mg PO DAILY [facility] Last Admin: 09/20/20 08:19 Dose: 300 mg Documented by: Glucagon (Glucagon,Human Recombinant 1 Mg Vial) 1 mg IM ASDIRECTED PRN PRN Reason: Hypoglycemia Pantoprazole Sodium 40 mg/ (Sodium Chloride) 10 mls @ 300 mls/hr IV Q24H [facility] Last Admin: 09/20/20 06:29 Dose: 300 mls/hr Documented by: Ertapenem 1 gm/ Sodium (Chloride) 50 mls @ 100 mls/hr IV Q24H [facility] Last Admin: 09/19/20 11:01 Dose: 100 mls/hr Documented by: Insulin Aspart (Insulin Aspart 100 Units/Ml 3 Ml Pen) 0 unit SUBCUT TIDAC [facility]; Protocol Last Admin: 09/20/20 08:25 Dose: 3 units Documented by: Insulin Human NPH (Insulin Isophane Nph, Human 100 Units/Ml 10 Ml Vial) 20 unit SUBCUT BIDAC [facility] Last Admin: 09/20/20 08:27 Dose: 20 units Documented by: Morphine Sulfate (Morphine 2 Mg/Ml Syringe) 2 mg IVPUSH Q2H PRN PRN Reason: Pain (severe 7-10) Last Admin: 09/13/20 16:11 Dose: 2 mg Documented by: Ondansetron HCl (Ondansetron 4 Mg/2 Ml Sdv) 4 mg IVPUSH Q4H PRN PRN Reason: Nausea Oxycodone HCl (Oxycodone 5 Mg Tab) 5 mg PO Q4H PRN PRN Reason: Pain (moderate 4-6) Last Admin: 09/13/20 13:56 Dose: 5 mg Documented by: Sodium Chloride (Sodium Chloride 0.9% 2.5 Ml Syringe) 2.5 ml FLUSH ASDIRECTED PRN PRN Reason: Keep Vein Open Sucralfate (Sucralfate Suspension 1 Gm/10 Ml Cup) 1 gm PO QIDACANDBED [facility] Last Admin: 09/20/20 06:34 Dose: 1 gm Documented by: Discontinued Medications Bacitracin (Bacitracin Oint 28.35 Gm Tube) 1 gm TOP ONETIME ONE Stop: 09/10/20 12:41 Last Admin: 09/10/20 12:58 Dose: 1 applicful Documented by: Bupivacaine HCl (Bupivacaine 0.5% 10 Ml Sdv) Confirm Administered Dose 10 ml .ROUTE .STK-MED ONE Stop: 09/08/20 16:48 Al Hydroxide/Mg Hydroxide 15 (ml/ Lidocaine HCl 5 ml) 0 ml PO ONETIME ONE Stop: 09/13/20 11:01 Last Admin: 09/13/20 12:01 Dose: 5 each Documented by: Al Hydroxide/Mg Hydroxide 15 ml/ Metoclopramide HCl 5 mg/Lidocaine HCl 5 ml 0 ml PO ONETIME ONE Stop: 09/13/20 14:46 Last Admin: 09/13/20 15:00 Dose: 10 each Documented by: Enoxaparin Sodium (Enoxaparin 40 Mg/0.4 Ml Syringe) 40 mg SUBCUT Q24H МАРИНА Last Admin: 09/15/20 17:02 Dose: 40 mg Documented by: Famotidine (Famotidine 20 Mg/2 Ml Sdv) 40 mg IVPUSH ONETIME ONE Stop: 09/08/20 14:04 Last Admin: 09/08/20 14:25 Dose: 40 mg Documented by: Fentanyl (Fentanyl 100 Mcg/2 Ml Sdv) Confirm Administered Dose 100 mcg .ROUTE .STK-MED ONE Stop: 09/08/20 17:33 Fluconazole (Fluconazole 100 Mg Tab) 150 mg PO ONETIME ONE Stop: 09/19/20 10:16 Last Admin: 09/19/20 10:58 Dose: 150 mg Documented by: Gadobenate Dimeglumine (Gadobenate Dimeglumine 529 Mg/Ml 20 Ml Sdv) 20 ml IVPUSH ONETIME STA Stop: 09/08/20 07:38 Last Admin: 09/08/20 07:39 Dose: 20 ml Documented by: Gadobenate Dimeglumine (Gadobenate Dimeglumine 529 Mg/Ml 20 Ml Sdv) 20 ml IVPUSH ONETIME STA Stop: 09/12/20 07:26 Last Admin: 09/12/20 07:27 Dose: 20 ml Documented by: Sodium Chloride (Normal Saline) 1,000 mls @ 999 mls/hr IV .Bolus ONE Stop: 09/07/20 12:43 Last Admin: 09/07/20 12:25 Dose: 999 mls/hr Documented by: Vancomycin HCl 1,500 mg/ (Sodium Chloride) 100 mls @ 100 mls/hr IV ONETIME ONE Stop: 09/07/20 12:42 Last Admin: 09/07/20 13:22 Dose: Not Given Documented by: Piperacillin Sod/Tazobactam (Sod 3.375 gm/ Sodium Chloride) 50 mls @ 100 mls/hr IV ONETIME ONE Stop: 09/07/20 12:12 Last Admin: 09/07/20 12:27 Dose: 100 mls/hr Documented by: Magnesium Sulfate 2 gm/ Premix 50 mls @ 50 mls/hr IV ONETIME ONE Stop: 09/07/20 13:51 Last Admin: 09/07/20 14:00 Dose: 50 mls/hr Documented by: Vancomycin HCl 1.5 gm/ Premix 300 mls @ 200 mls/hr IV ONETIME ONE Stop: 09/07/20 14:50 Last Admin: 09/07/20 14:00 Dose: 200 mls/hr Documented by: Sodium Chloride (Normal Saline) 1,000 mls @ 125 mls/hr IV Q8H [facility] Last Admin: 09/09/20 13:43 Dose: Not Given Documented by: Piperacillin Sod/Tazobactam (Sod 4.5 gm/ Sodium Chloride) 100 mls @ 100 mls/hr IV Q8H [facility] Last Admin: 09/08/20 04:29 Dose: 100 mls/hr Documented by: Vancomycin HCl 1.5 gm/ Premix 300 mls @ 200 mls/hr IV Q12H [facility] Stop: 09/09/20 16:00 Last Admin: 09/09/20 14:20 Dose: 200 mls/hr Documented by: Piperacillin Sod/Tazobactam (Sod 4.5 gm/ Sodium Chloride) 100 mls @ 100 mls/hr IV Q6H [facility] Last Admin: 09/10/20 09:39 Dose: 100 mls/hr Documented by: Vancomycin HCl 1.5 gm/ Premix 300 mls @ 200 mls/hr IV Q8H [facility] Last Admin: 09/10/20 05:09 Dose: 200 mls/hr Documented by: Magnesium Sulfate (Magnesium Sulfate In Water 2 Gm/50 Ml) 2 gm in 50 mls @ 50 mls/hr IV ONETIME ONE Stop: 09/10/20 11:59 Last Admin: 09/10/20 12:59 Dose: 50 mls/hr Documented by: Cefazolin Sodium/Dextrose 2 gm (/ Premix) 50 mls @ 100 mls/hr IV Q8H [facility] Last Admin: 09/12/20 10:40 Dose: 100 mls/hr Documented by: Magnesium Sulfate (Magnesium Sulfate In Water 2 Gm/50 Ml) 2 gm in 50 mls @ 50 mls/hr IV ONETIME ONE Stop: 09/11/20 11:44 Last Admin: 09/11/20 11:41 Dose: 50 mls/hr Documented by: Magnesium Sulfate (Magnesium Sulfate In Water 2 Gm/50 Ml) 2 gm in 50 mls @ 50 mls/hr IV ONETIME ONE Stop: 09/12/20 09:28 Last Admin: 09/12/20 09:27 Dose: 50 mls/hr Documented by: Piperacillin Sod/Tazobactam (Sod 4.5 gm/ Sodium Chloride) 100 mls @ 25 mls/hr IV Q6H [facility] Last Admin: 09/19/20 06:26 Dose: 25 mls/hr Documented by: Magnesium Sulfate (Magnesium Sulfate In Water 4 Gm/100 Ml) 4 gm in 100 mls @ 50 mls/hr IV ONETIME ONE Stop: 09/13/20 10:29 Last Admin: 09/13/20 09:10 Dose: 50 mls/hr Documented by: Pantoprazole Sodium 40 mg/ (Sodium Chloride) 10 mls @ 300 mls/hr IV NOW ONE Stop: 09/13/20 14:16 Last Admin: 09/13/20 14:28 Dose: 300 mls/hr Documented by: Magnesium Sulfate (Magnesium Sulfate In Water 2 Gm/50 Ml) 2 gm in 50 mls @ 50 mls/hr IV ONETIME ONE Stop: 09/16/20 08:58 Last Admin: 09/16/20 08:55 Dose: 50 mls/hr Documented by: Magnesium Sulfate (Magnesium Sulfate In Water 4 Gm/100 Ml) 4 gm in 100 mls @ 50 mls/hr IV ONETIME ONE Stop: 09/19/20 10:29 Last Admin: 09/19/20 09:29 Dose: 50 mls/hr Documented by: Iopamidol (Iopamidol 755 Mg/Ml 500 Ml Multipack Bottle) 50 ml IVPUSH ONETIME STA Stop: 09/13/20 17:59 Last Admin: 09/13/20 17:59 Dose: 50 ml Documented by: Lidocaine HCl (Lidocaine 1% 20 Ml Mdv) Confirm Administered Dose 20 ml .ROUTE .STK-MED ONE Stop: 09/08/20 16:48 Lisinopril (Lisinopril 10 Mg Tab) 20 mg PO BID [facility] Last Admin: 09/13/20 21:30 Dose: Not Given Documented by: Metoclopramide HCl (Metoclopramide 10 Mg/2 Ml Sdv) 10 mg IVPUSH ONETIME ONE Stop: 09/08/20 14:06 Last Admin: 09/08/20 14:25 Dose: 10 mg Documented by: Midazolam HCl (Midazolam 1 Mg/Ml 2 Ml Sdv) Confirm Administered Dose 2 mg .ROUTE .STK-MED ONE Stop: 09/08/20 17:33 Morphine Sulfate (Morphine 2 Mg/Ml Syringe) 2 mg IVPUSH ONETIME ONE Stop: 09/13/20 14:13 Last Admin: 09/13/20 14:32 Dose: Not Given Documented by: Ondansetron HCl (Ondansetron 4 Mg/2 Ml Sdv) Confirm Administered Dose 4 mg .ROUTE .STK-MED ONE Stop: 09/07/20 13:59 Last Admin: 09/07/20 14:03 Dose: Not Given Documented by: Ondansetron HCl (Ondansetron 4 Mg/2 Ml Sdv) 4 mg IVPUSH ONETIME ONE Stop: 09/07/20 14:01 Last Admin: 09/07/20 14:03 Dose: 4 mg Documented by: Oxycodone/Acetaminophen (Acetaminophen/Oxycodone 325-5 Mg Tab) 2 tab PO ONETIME ONE Stop: 09/07/20 11:44 Last Admin: 09/07/20 12:25 Dose: 2 tab Documented by: Pantoprazole Sodium (Pantoprazole 40 Mg Tab.Cr) 40 mg PO DAILY [facility] Last Admin: 09/13/20 11:32 Dose: 40 mg Documented by: Sodium Chloride (Sodium Chloride 0.9% 10 Ml Syringe) 10 ml FLUSH ASDIRECTED PRN PRN Reason: Keep Vein Open Last Admin: 09/07/20 12:27 Dose: 10 ml Documented by: Sodium Chloride (Sodium Chloride 0.9% 2.5 Ml Syringe) 2.5 ml FLUSH ASDIRECTED PRN PRN Reason: Keep Vein Open Last Admin: 09/07/20 12:27 Dose: 2.5 ml Documented by: Vancomycin HCl (Pharmacy To Dose - Vancomycin) 1 dose .XX ASDIRECTED МАРИНА - Exam General: Reports: Alert, Oriented, Cooperative, No Acute Distress Lungs: Reports: Clear to Auscultation, Normal Respiratory Effort Cardiovascular: Reports: Regular Rate, Regular Rhythm GI/Abdominal Exam: Normal Bowel Sounds, Soft, Non-Tender Skin: Reports: Warm, Dry Wound/Incisions: Reports: Other Neurological: Reports: No New Focal Deficit Psy/Mental Status: Reports: Alert, Normal Affect, Normal Mood
[2020-09-20] MEDS: Ertapenem 1 GM in Sodium Chloride 0.9% 50 ML IV SCH (09:15)
== END 2020-09-20 11:30 | disposition home or self-care (01) | DRG 317 ==
LOC: MW.ED 10:14 → MW.MS 13:20
PROVIDERS: ADMIT Internal Medicine; ATTEND Internal Medicine
PROC: 0JBQ0ZZ Excision of Right Foot Subcutaneous Tissue and Fascia, Open Approach (ICD-10-PCS; principal; 2020-09-08)
PROC: 0J9Q0ZZ Drainage of Right Foot Subcutaneous Tissue and Fascia, Open Approach (ICD-10-PCS; 2020-09-08)
PROC: 0YPB0JZ Removal of Synthetic Substitute from Left Lower Extremity, Open Approach (ICD-10-PCS; 2020-09-08)
DX: E11.69 Type 2 diabetes mellitus with other specified complication (principal); E11.621 Type 2 diabetes mellitus with foot ulcer; M86.8X7 Other osteomyelitis, ankle and foot; E66.9 Obesity, unspecified; G62.9 Polyneuropathy, unspecified; I10 Essential (primary) hypertension; L97.511 Non-pressure chronic ulcer of other part of right foot limited to breakdown of skin; E11.52 Type 2 diabetes mellitus with diabetic peripheral angiopathy with gangrene; I96 Gangrene, not elsewhere classified; E78.5 Hyperlipidemia, unspecified; E83.42 Hypomagnesemia; L03.115 Cellulitis of right lower limb; K29.70 Gastritis, unspecified, without bleeding; L02.611 Cutaneous abscess of right foot; B95.61 Methicillin susceptible Staphylococcus aureus infection as the cause of diseases classified elsewhere; H54.7 Unspecified visual loss; E78.00 Pure hypercholesterolemia, unspecified; Z20.822 Contact with and (suspected) exposure to COVID-19; Z68.37 Body mass index [BMI] 37.0-37.9, adult; K20.90 Esophagitis, unspecified without bleeding; R07.9 Chest pain, unspecified; E11.42 Type 2 diabetes mellitus with diabetic polyneuropathy; Z87.891 Personal history of nicotine dependence; Z79.4 Long term (current) use of insulin; Z79.899 Other long term (current) drug therapy; Z90.49 Acquired absence of other specified parts of digestive tract
CPT/HCPCS: 36410; 36415; 71275; 71275-26; 73620-26-RT; 73620-RT; 73720-26-RT; 73720-RT; 80048; 80053; 80202; 81001; 82947; 82962; 83605; 83735; 84100; 84484; 85025; 85652; 86140; 87040; 87070; 87075; 87077; 87186; 87205; 87338; 93005; 93010; 96365; 97162-GP; 99283; 99284-25; A9270-GY; A9577; C9113; J0690; J1335; J1650; J1815-GY; J2250; J2270; J2405; J2543; J2765; J3010; J3370; J3475; J3490; J7030; Q9967; U0002

== ENCOUNTER 2020-10-23 14:22 | Inpatient (IN) | payer BC ==
[2020-10-23] MEDS ORDERED: Sodium Chloride 0.9% 1,000 ML IV ONE ×2 (15:11→16:26)
[2020-10-23] MEDS ORDERED: VANCOmycin 2 GM/400 ML 2 GM in Premix Bag 1 BAG IV ONE (15:14)
--- NOTE | 2020-10-23 15:23 | EDM.PDOC ---
<Gayle Simmons - Last Filed: 10/23/20 22:08> ED HPI GENERAL MEDICAL PROBLEM - General Chief Complaint: Skin Complaint Stated Complaint: FEVER, REDNESS IN RIGHT FOOT Time Seen by Provider: 10/23/20 14:26 Source of Information: Reports: Patient History Limitations: Reports: No Limitations - History of Present Illness INITIAL COMMENTS - FREE TEXT/NARRATIVE: HISTORY AND PHYSICAL: History of present illness: Patient is a 55-year-old female who presents to the emergency room with complaints of right diabetic foot ulcer changes. The patient reports that she just stopped taking her IV antibiotic 5 days ago. The patient states that the area between the right great and second toe has increased erythema and serosanguineous drainage. She had to change her dressing 3 times today. She feels like her 2nd toe has been changing colors. She has diabetic neuropathy and is unable to feel pain. The patient states that she just started having general malaise. She said her appetite has decreased. The patient called Dr. Pete regarding the change in condition and he advised her to go to the emergency department. She is urinating without difficulty. Patient denies any headache, change in vision, syncope or near syncope. Denies any chest pain, back pain, shortness of breath or cough. Denies any abdominal pain, vomiting, constipation or dysuria. Emergency department the patient is is hemodynamically stable with a slightly tachycardic heart rate of 115, and elevated blood pressure of 148/104.. The patient is afebrile with a temperature of 97.2. Review of systems: As per history of present illness and below otherwise all systems reviewed and negative. Past medical history: As per history of present illness and as reviewed below otherwise noncontributory. Surgical history: As per history of present illness and as reviewed below otherwise noncontributory. Social history: See social history for further information Family history: As per history of present illness and as reviewed below otherwise noncontributory. Physical exam: General: Well developed and well nourished. Alert and orientated x 3. Nontoxic in appearance and in no acute distress. Vital signs are stable and have been reviewed by me. Nursing notes were reviewed. HEENT: Atraumatic, normocephalic, pupils equal and reactive bilaterally, negative for conjunctival pallor or scleral icterus, mucous membranes moist, TMs normal bilaterally, throat clear, neck supple, nontender, trachea midline. No drooling or trismus noted. No meningeal signs. No hot potato voice noted. Lungs: Clear to auscultation bilaterally. No wheezes, rales, or rhonchi. Chest nontender. Normal work of breathing, no accessory muscles used. Heart: S1S2, regular rate and rhythm without overt murmur, gallops, or rubs. No JVD. No peripheral edema Abdomen: Soft, nondistended, nontender. Normoactive bowel sounds. Negative for masses or costovertebral tenderness. Skin: Area between the right great and second toe healing diabetic ulcer with scant serous sanguinous drainage. Noted edema and erythema the medial aspect of the second toe. Plantar circular open area approximately 0.5 cm in diameter with clear drainage. The area surrounding the plantar wound is callused and moist with clear drainage. Warm & dry. Hematologic: No petechiae or purpra. Mucosa appropriate color and normal nail bed color and refill. Extremities: Moves all extremities per self without difficulty or deficits, negative for cords or calf pain. Neurovascular unremarkable. Neuro: Awake, alert, oriented. Cranial nerves II through XII unremarkable. Cerebellum unremarkable. Motor and sensory unremarkable throughout. Exam nonfocal. Psychiatric: Mood and affect are appropriate. Normal thought process. Answering questions appropriately. Notes: *This patient was seen and evaluated during the 2019 SARS-CoV-2 novel coronavirus pandemic period. Community viral transmission is ongoing at time of this encounter and the emergency department is operating under pandemic response procedures. As stated above the patient is presenting with increased drainage and erythema to the diabetic ulcer between her right great and second toe and on her plantar area. She had been seeing Dr. Pete who had her on IV antibiotics up until 5 days ago. She states that today she saw a change in the color of her toe, in creased swelling, and increased drainage. She started feeling bad with general malaise and decreased appetite. She called Dr. Pete who advised her to come to the emergency department. Dr. Mejía examined patient and discussed course of treatment with me. I had ordered a generalized septic work-up and Ertapenem 1gm IV. I have ordered Zofran for complaints of nausea. The patient's blood pressu re has normalized down to 122/72. The patient's lactate is 2.5 so I have ordered another liter of fluids based on the patient's ideal body weight of 61 kg at 30ml per kg. Patient's glucose is 388. She had taken 30 units of regular insulin at noon. She states with an infection her glucose is hard to control. We will do a bedside glucose prior to her evening meal and treat her accordingly. The patient's glucose was 288 I have ordered 25 units of regular insulin to be given subcu. She is completing her second bag of IV fluids and we are drawing her second lactate. I called lab regarding her results of her second lactate and was told it would be up in 15 minutes. It is now been 45 minutes and I am being told that there was a miscommunication and they have not drawn it yet. Lab has now drawn the lactate. We are checking the patient's glucose for her evening insulin. The patient's glucose is 285 we will treat her with regular insulin 23 units subcu. She does not take her Novolin in until 930 or 10:00. The patient is aware of the miscommunication issue. The anion gap is 12.9. I spoke with Dr. Arteaga regarding the patient's glucose remaining elevated and the need for the patient to be admitted for a tighter blood glucose control and IV antibiotics. Dr. Arteaga would like a CT of the foot prior to admission. Post regular insulin administration glucose check was 288. The patient has received her nighttime snack and is getting her normal 25 units of long-acting insulin. The patient is aware of the need for the CT scan and has agreed to the plan. Report given to Dr. Vega. He will disposition the patient. I have talked with the patient about today's findings, in addition to providing specific details for plan of care. Reassessment at the time of disposition demonstrates that the patient is in no acute distress. The patient is stable for discharge, counseling was provided and we discussed in great detail signs and symptoms that would prompt them to return to the Emergency Department. Medication, follow up and supportive care measures were reviewed and discussed. Voices understanding and is agreeable to plan of care. Denies any further questions or concerns at this time. Diagnostics: CBC, CMP, CRP, INR, lactate, blood cultures x2, UA, Therapeutics: IV fluids, Ertapenem, Zofran, Regular 25 x2, Lantus 25 units Prescription: Impression: Plan: 1. You were evaluated today on an emergent basis. Your 2. You can alternate Tylenol and ibuprofen as needed for pain and fever management. 3. We encourage you to follow up with your primary care provider and/or recommended specialist in the next few days for re-evaluation and further care/management. 4. If your symptoms should worsen, new symptoms develop or any of the signs and symptoms we discussed should arise please return to the emergency room or call 911 (if needed). Definitive disposition and diagnosis as appropriate pending reevaluation and review of above. R foot Pain Score (Numeric/FACES): 1 - Related Data Allergies Allergy/AdvReac Type Severity Reaction Status Date / Time No Known Allergies Allergy Verified 10/23/20 14:48 Home Meds: Home Meds Insulin Regular, Human [Novolin R] unit SQ QID 08/16/20 [History] Gabapentin [Neurontin] 300 mg PO DAILY 08/24/20 [History] atorvaSTATin [Lipitor] 20 mg PO BEDTIME 08/24/20 [History] lisinopriL [Lisinopril] 20 mg PO DAILY 08/24/20 [History] metFORMIN HCl [Metformin HCl] 1,000 mg PO BIDMEALS 08/24/20 [History] DULoxetine [Cymbalta] 30 mg PO DAILY 08/26/20 [History] Acetaminophen [Tylenol] 650 mg PO Q4H PRN tablet 09/19/20 [Rx] Docusate Sodium [Colace] 100 mg PO BID PRN cap 09/19/20 [Rx] Pantoprazole Sodium [Protonix] 40 mg PO DAILY #14 tablet. 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: Musculoskeletal History: Reports: Arthritis, Other (See Below) Other Musculoskeletal History: lower back arthritis, R shoulder arthritis Neurological History: Reports: Neuropathy, Diabetic Psychiatric History: Reports: Depression Endocrine/Metabolic History: Reports: Diabetes, Type II - Infectious Disease History Infectious Disease History: Reports: Chicken Pox, Measles - Past Surgical History HEENT Surgical History: Reports: None Cardiovascular Surgical History: Reports: None Respiratory Surgical History: Reports: None GI Surgical History: Reports: Cholecystectomy Female Surgical History: Reports: None Endocrine Surgical History: Reports: None Neurological Surgical History: Reports: None Musculoskeletal Surgical History: Reports: Shoulder Surgery Social & Family History - Family History Family Medical History: No Pertinent Family History - Caffeine Use Caffeine Use: Reports: Coffee, Energy Drinks, Soda, Tea Other Caffeine Use: flavored water Review of Systems - Review of Systems Review Of Systems: Comprehensive ROS is negative, except as noted in HPI. ED EXAM, GENERAL - Physical Exam Exam: See Below (See dictation) Departure - Departure Disposition: Refer to Observation Clinical Impression: Cellulitis of foot - Discharge Information Referrals: PCP,None [Primary Care Provider] - Forms: ED Department Discharge Sepsis Event Note (ED) - Evaluation Sepsis Screening Result: No Definite Risk <Dilip Vega - Last Filed: 10/24/20 00:54> Course - Vital Signs Last Recorded V/S: Last Vital Signs Temp 97.2 F 10/23/20 14:41 Pulse 86 10/23/20 18:00 Resp 17 10/23/20 18:00 BP 126/82 10/23/20 18:00 Pulse Ox 98 10/23/20 18:00 - Orders/Labs/Meds Orders: Active Orders 24 hr Category Date Time Status Cardiac Monitoring [RC] . DIRECTED Care 10/23/20 16:43 Active Glucose [Blood Glucose Check, Bedside] [RC] ONETIME Care 10/23/20 21:50 Active CULTURE BLOOD [BC] Stat Lab 10/23/20 15:25 Received CULTURE BLOOD [BC] Stat Lab 10/23/20 15:39 Received Dextrose 50% in Water Med 10/23/20 17:49 Active 50 ml IV ASDIRECTED PRN Dextrose 50% in Water Med 10/23/20 20:35 Active 50 ml IV ASDIRECTED PRN Dextrose 50% in Water Med 10/23/20 20:46 Active 50 ml IV ASDIRECTED PRN Glucagon,Human Recombinant [GlucaGen] Med 10/23/20 17:49 Active 1 mg IM ASDIRECTED PRN Glucagon,Human Recombinant [GlucaGen] Med 10/23/20 20:35 Active 1 mg IM ASDIRECTED PRN Glucagon,Human Recombinant [GlucaGen] Med 10/23/20 20:46 Active 1 mg IM ASDIRECTED PRN Insulin Glarg,Human.Rec.Analog [LantUS Solostar] Med 10/24/20 22:03 Once 25 units SUBCUT BEDTIME ONE Blood Culture x2 Reflex Set [OM.PC] Stat Oth 10/23/20 15:08 Ordered Medication Orders Dextrose/Water (50% Dextrose In Water 50 Ml Syringe) 50 ml IV ASDIRECTED PRN PRN Reason: Hypoglycemia Dextrose/Water (50% Dextrose In Water 50 Ml Syringe) 50 ml IV ASDIRECTED PRN PRN Reason: Hypoglycemia Dextrose/Water (50% Dextrose In Water 50 Ml Syringe) 50 ml IV ASDIRECTED PRN PRN Reason: Hypoglycemia Glucagon (Glucagon,Human Recombinant 1 Mg Vial) 1 mg IM ASDIRECTED PRN PRN Reason: Hypoglycemia Glucagon (Glucagon,Human Recombinant 1 Mg Vial) 1 mg IM ASDIRECTED PRN PRN Reason: Hypoglycemia Glucagon (Glucagon,Human Recombinant 1 Mg Vial) 1 mg IM ASDIRECTED PRN PRN Reason: Hypoglycemia Insulin Glargine (Insulin Glargine,Human Rec. Analog 100 Units/Ml 3 Ml Pen) 25 units SUBCUT BEDTIME ONE Stop: 10/24/20 22:04 Last Admin: 10/24/20 00:07 Dose: 25 units Documented by: JEROME Labs: Laboratory Tests 10/23/20 10/23/20 10/23/20 Range/Units 15:25 15:25 15:25 WBC 11.72 H (4.0-11.0) K/uL RBC 4.77 (4.30-5.90) M/uL Hgb 14.8 (12.0-16.0) g/dL Hct 43.4 (36.0-46.0) % MCV 91.0 (80.0-98.0) fL MCH 31.0 (27.0-32.0) pg MCHC 34.1 (31.0-37.0) g/dL RDW Std Deviation 41.1 (28.0-62.0) fl RDW Coeff of Olimpia 12 (11.0-15.0) % Plt Count 344 (150-400) K/uL MPV 11.00 (7.40-12.00) fL Neut % (Auto) 60.5 (48.0-80.0) % Lymph % (Auto) 28.2 (16.0-40.0) % [place] % (Auto) 8.8 (0.0-15.0) % Eos % (Auto) 2.2 (0.0-7.0) % Baso % (Auto) 0.3 (0.0-1.5) % Neut # (Auto) 7.1 H (1.4-5.7) K/uL Lymph # (Auto) 3.3 H (0.6-2.4) K/uL [place] # (Auto) 1.0 H (0.0-0.8) K/uL Eos # (Auto) 0.3 (0.0-0.7) K/uL Baso # (Auto) 0.0 (0.0-0.1) K/uL Nucleated RBC % 0.0 /100WBC Nucleated RBCs # 0 K/uL INR Sodium 134 L (136-145) mmol/L Potassium 4.5 (3.5-5.1) mmol/L Chloride 96 L (98-107) mmol/L Carbon Dioxide 27.4 (21.0-32.0) mmol/L BUN 19 H (7.0-18.0) mg/dL Creatinine 1.1 H (0.6-1.0) mg/dL Est Cr Clr Drug Dosing 51.39 mL/min Estimated GFR (MDRD) 51.4 ml/min Glucose 388 H (74-106) mg/dL POC Glucose (70-99) mg/dL Lactic Acid 2.5 H* (0.4-2.0) mmol/L Calcium 9.3 (8.5-10.1) mg/dL Total Bilirubin 0.5 (0.2-1.0) mg/dL AST 20 (15-37) IU/L ALT 33 (14-63) IU/L Alkaline Phosphatase 91 (46-116) U/L Lactate Dehydrogenase (81-234) U/L C-Reactive Protein 7.30 H (0.00-0.90) mg/dL Total Protein 7.8 (6.4-8.2) g/dL Albumin 3.1 L (3.4-5.0) g/dL Globulin 4.7 H (2.6-4.0) g/dL Albumin/Globulin Ratio 0.7 L (0.9-1.6) Urine Color Urine Appearance Urine pH (5.0-8.0) Ur Specific [place] (1.001-1.035) Urine Protein (NEGATIVE) mg/dL Urine Glucose (UA) (NEGATIVE) mg/dL Urine Ketones (NEGATIVE) mg/dL Urine Occult Blood (NEGATIVE) Urine Nitrite (NEGATIVE) Urine Bilirubin (NEGATIVE) Urine Urobilinogen (<2.0) EU/dL Ur Leukocyte Esterase (NEGATIVE) Urine RBC (0-2/HPF) Urine WBC (0-5/HPF) Ur Epithelial Cells (NONE-FEW) Urine Bacteria (NEGATIVE) SARS-CoV-2 RNA (YOUNG) (NEGATIVE) 10/23/20 10/23/20 10/23/20 Range/Units 15:25 15:25 20:24 WBC (4.0-11.0) K/uL RBC (4.30-5.90) M/uL Hgb (12.0-16.0) g/dL Hct (36.0-46.0) % MCV (80.0-98.0) fL MCH (27.0-32.0) pg MCHC (31.0-37.0) g/dL RDW Std Deviation (28.0-62.0) fl RDW Coeff of [place]limpia (11.0-15.0) % Plt Count (150-400) K/uL MPV (7.40-12.00) fL Neut % (Auto) (48.0-80.0) % Lymph % (Auto) (16.0-40.0) % [place] % (Auto) (0.0-15.0) % Eos % (Auto) (0.0-7.0) % Baso % (Auto) (0.0-1.5) % Neut # (Auto) (1.4-5.7) K/uL Lymph # (Auto) (0.6-2.4) K/uL [place] # (Auto) (0.0-0.8) K/uL Eos # (Auto) (0.0-0.7) K/uL Baso # (Auto) (0.0-0.1) K/uL Nucleated RBC % /100WBC Nucleated RBCs # K/uL INR 1.04 Sodium (136-145) mmol/L Potassium (3.5-5.1) mmol/L Chloride (98-107) mmol/L Carbon Dioxide (21.0-32.0) mmol/L BUN (7.0-18.0) mg/dL Creatinine (0.6-1.0) mg/dL Est Cr Clr Drug Dosing mL/min Estimated GFR (MDRD) ml/min Glucose (74-106) mg/dL POC Glucose (70-99) mg/dL Lactic Acid 1.7 (0.4-2.0) mmol/L Calcium (8.5-10.1) mg/dL Total Bilirubin (0.2-1.0) mg/dL AST (15-37) IU/L ALT (14-63) IU/L Alkaline Phosphatase (46-116) U/L Lactate Dehydrogenase 187 (81-234) U/L C-Reactive Protein (0.00-0.90) mg/dL Total Protein (6.4-8.2) g/dL Albumin (3.4-5.0) g/dL Globulin (2.6-4.0) g/dL Albumin/Globulin Ratio (0.9-1.6) Urine Color Urine Appearance Urine pH (5.0-8.0) Ur Specific [place] (1.001-1.035) Urine Protein (NEGATIVE) mg/dL Urine Glucose (UA) (NEGATIVE) mg/dL Urine Ketones (NEGATIVE) mg/dL Urine Occult Blood (NEGATIVE) Urine Nitrite (NEGATIVE) Urine Bilirubin (NEGATIVE) Urine Urobilinogen (<2.0) EU/dL Ur Leukocyte Esterase (NEGATIVE) Urine RBC (0-2/HPF) Urine WBC (0-5/HPF) Ur Epithelial Cells (NONE-FEW) Urine Bacteria (NEGATIVE) SARS-CoV-2 RNA (YOUNG) (NEGATIVE) 10/23/20 10/23/20 10/23/20 Range/Units 21:06 21:26 21:29 WBC (4.0-11.0) K/uL RBC (4.30-5.90) M/uL Hgb (12.0-16.0) g/dL Hct (36.0-46.0) % MCV (80.0-98.0) fL MCH (27.0-32.0) pg MCHC (31.0-37.0) g/dL RDW Std Deviation (28.0-62.0) fl RDW Coeff of Olimpia (11.0-15.0) % Plt Count (150-400) K/uL MPV (7.40-12.00) fL Neut % (Auto) (48.0-80.0) % Lymph % (Auto) (16.0-40.0) % [place] % (Auto) (0.0-15.0) % Eos % (Auto) (0.0-7.0) % Baso % (Auto) (0.0-1.5) % Neut # (Auto) (1.4-5.7) K/uL Lymph # (Auto) (0.6-2.4) K/uL [place] # (Auto) (0.0-0.8) K/uL Eos # (Auto) (0.0-0.7) K/uL Baso # (Auto) (0.0-0.1) K/uL Nucleated RBC % /100WBC Nucleated RBCs # K/uL INR Sodium (136-145) mmol/L Potassium (3.5-5.1) mmol/L Chloride (98-107) mmol/L Carbon Dioxide (21.0-32.0) mmol/L BUN (7.0-18.0) mg/dL Creatinine (0.6-1.0) mg/dL Est Cr Clr Drug Dosing mL/min Estimated GFR (MDRD) ml/min Glucose (74-106) mg/dL POC Glucose 296 H (70-99) mg/dL Lactic Acid (0.4-2.0) mmol/L Calcium (8.5-10.1) mg/dL Total Bilirubin (0.2-1.0) mg/dL AST (15-37) IU/L ALT (14-63) IU/L Alkaline Phosphatase (46-116) U/L Lactate Dehydrogenase (81-234) U/L C-Reactive Protein (0.00-0.90) mg/dL Total Protein (6.4-8.2) g/dL Albumin (3.4-5.0) g/dL Globulin (2.6-4.0) g/dL Albumin/Globulin Ratio (0.9-1.6) Urine Color YELLOW Urine Appearance SLT CLOUDY Urine pH 6.0 (5.0-8.0) Ur Specific [place] 1.025 (1.001-1.035) Urine Protein NEGATIVE (NEGATIVE) mg/dL Urine Glucose (UA) 250 H (NEGATIVE) mg/dL Urine Ketones NEGATIVE (NEGATIVE) mg/dL Urine Occult Blood TRACE-INTACT H (NEGATIVE) Urine Nitrite NEGATIVE (NEGATIVE) Urine Bilirubin NEGATIVE (NEGATIVE) Urine Urobilinogen 0.2 (<2.0) EU/dL Ur Leukocyte Esterase NEGATIVE (NEGATIVE) Urine RBC 1-3 (0-2/HPF) Urine WBC 0-2 (0-5/HPF) Ur Epithelial Cells MODERATE (NONE-FEW) Urine Bacteria FEW (NEGATIVE) SARS-CoV-2 RNA (YOUNG) NEGATIVE (NEGATIVE) 10/23/20 10/24/20 Range/Units 21:58 00:05 WBC (4.0-11.0) K/uL RBC (4.30-5.90) M/uL Hgb (12.0-16.0) g/dL Hct (36.0-46.0) % MCV (80.0-98.0) fL MCH (27.0-32.0) pg MCHC (31.0-37.0) g/dL RDW Std Deviation (28.0-62.0) fl RDW Coeff of Olimpia (11.0-15.0) % Plt Count (150-400) K/uL MPV (7.40-12.00) fL Neut % (Auto) (48.0-80.0) % Lymph % (Auto) (16.0-40.0) % [place] % (Auto) (0.0-15.0) % Eos % (Auto) (0.0-7.0) % Baso % (Auto) (0.0-1.5) % Neut # (Auto) (1.4-5.7) K/uL Lymph # (Auto) (0.6-2.4) K/uL [place] # (Auto) (0.0-0.8) K/uL Eos # (Auto) (0.0-0.7) K/uL Baso # (Auto) (0.0-0.1) K/uL Nucleated RBC % /100WBC Nucleated RBCs # K/uL INR Sodium (136-145) mmol/L Potassium (3.5-5.1) mmol/L Chloride (98-107) mmol/L Carbon Dioxide (21.0-32.0) mmol/L BUN (7.0-18.0) mg/dL Creatinine (0.6-1.0) mg/dL Est Cr Clr Drug Dosing mL/min Estimated GFR (MDRD) ml/min Glucose (74-106) mg/dL POC Glucose 288 H 239 H (70-99) mg/dL Lactic Acid (0.4-2.0) mmol/L Calcium (8.5-10.1) mg/dL Total Bilirubin (0.2-1.0) mg/dL AST (15-37) IU/L ALT (14-63) IU/L Alkaline Phosphatase (46-116) U/L Lactate Dehydrogenase (81-234) U/L C-Reactive Protein (0.00-0.90) mg/dL Total Protein (6.4-8.2) g/dL Albumin (3.4-5.0) g/dL Globulin (2.6-4.0) g/dL Albumin/Globulin Ratio (0.9-1.6) Urine Color Urine Appearance Urine pH (5.0-8.0) Ur Specific [place] (1.001-1.035) Urine Protein (NEGATIVE) mg/dL Urine Glucose (UA) (NEGATIVE) mg/dL Urine Ketones (NEGATIVE) mg/dL Urine Occult Blood (NEGATIVE) Urine Nitrite (NEGATIVE) Urine Bilirubin (NEGATIVE) Urine Urobilinogen (<2.0) EU/dL Ur Leukocyte Esterase (NEGATIVE) Urine RBC (0-2/HPF) Urine WBC (0-5/HPF) Ur Epithelial Cells (NONE-FEW) Urine Bacteria (NEGATIVE) SARS-CoV-2 RNA (YOUNG) (NEGATIVE) Meds: Medications Generic Name Dose Route Start Last Admin Trade Name Freq PRN Reason Stop Dose Admin Dextrose/Water 50 ml 10/23/20 17:49 50% Dextrose In Water 50 Ml Syringe IV ASDIRECTED PRN Hypoglycemia Dextrose/Water 50 ml 10/23/20 20:35 50% Dextrose In Water 50 Ml Syringe IV ASDIRECTED PRN Hypoglycemia Dextrose/Water 50 ml 10/23/20 20:46 50% Dextrose In Water 50 Ml Syringe IV ASDIRECTED PRN Hypoglycemia Glucagon 1 mg 10/23/20 17:49 Glucagon,Human Recombinant 1 Mg Vial IM ASDIRECTED PRN Hypoglycemia Glucagon 1 mg 10/23/20 20:35 Glucagon,Human Recombinant 1 Mg Vial IM ASDIRECTED PRN Hypoglycemia Glucagon 1 mg 10/23/20 20:46 Glucagon,Human Recombinant 1 Mg Vial IM ASDIRECTED PRN Hypoglycemia Insulin Glargine 25 units 10/24/20 22:03 10/24/20 00:07 Insulin Glargine,Human Rec. Analog 100 Units/Ml 3 Ml Pen SUBCUT 10/24/20 22:04 25 units BEDTIME ONE Administration Discontinued Medications Generic Name Dose Route Start Last Admin Trade Name Luciusq PRN Reason Stop Dose Admin Ertapenem Confirm 10/23/20 16:04 10/23/20 16:25 Ertapenem 1 Gm Vial Administered 10/23/20 16:05 Not Given Dose 1 gm .ROUTE .STK-MED ONE Sodium Chloride 1,000 mls @ 999 mls/hr 10/23/20 15:11 10/23/20 15:42 Normal Saline IV 10/23/20 16:11 999 mls/hr .BOLUS ONE Administration Vancomycin HCl 2 gm/ Premix 400 mls @ 200 mls/hr 10/23/20 15:14 10/23/20 16:21 IV 10/23/20 17:13 Not Given STAT ONE Ertapenem 1 gm/ Sodium 50 mls @ 100 mls/hr 10/23/20 15:49 10/23/20 16:22 Chloride IV 10/23/20 16:18 100 mls/hr ONETIME ONE Administration Sodium Chloride Confirm 10/23/20 16:05 10/23/20 16:25 Normal Saline Administered 10/23/20 16:06 Not Given Dose 50 mls @ as directed .ROUTE .STK-MED ONE Sodium Chloride 1,000 mls @ 999 mls/hr 10/23/20 16:26 10/23/20 17:13 Normal Saline IV 10/23/20 17:26 999 mls/hr .BOLUS ONE Administration Insulin Glargine Confirm 10/23/20 23:21 10/24/20 00:13 Insulin Glargine,Human Rec. Analog 100 Units/Ml 3 Ml Pen Administered 23:22 Not Given Dose 300 units .ROUTE .STK-MED ONE Insulin Human Regular 25 unit 10/23/20 17:49 10/23/20 18:00 Insulin Regular, Human 100 Units/Ml 10 Ml Vial SUBCUT 10/23/20 17:50 25 unit ONETIME ONE Administration Protocol Insulin Human Regular 25 unit 10/23/20 20:35 10/23/20 21:55 Insulin Regular, Human 100 Units/Ml 10 Ml Vial SUBCUT 10/23/20 20:36 Not Given ONETIME ONE Protocol Insulin Human Regular 23 unit 10/23/20 20:46 10/23/20 21:24 Insulin Regular, Human 100 Units/Ml 10 Ml Vial SUBCUT 10/23/20 20:47 23 units ONETIME ONE Administration Protocol Ondansetron HCl 4 mg 10/23/20 16:00 10/23/20 16:21 Ondansetron 4 Mg/2 Ml Sdv IVPUSH 10/23/20 16:01 4 mg ONETIME ONE Administration - Re-Assessments/Exams Free Text/Narrative Re-Assessment/Exam: 10/24/20 00:53 No evidence of osteomyelitis on CT imaging. Will admit patient to observation. Departure - Departure Time of Disposition: 00:54 Condition: Good Sepsis Event Note (ED) - Focused Exam Vital Signs: Vital Signs Temp Pulse Resp BP Pulse Ox 10/23/20 18:00 86 17 126/82 98 10/23/20 16:00 90 17 122/83 94 L 10/23/20 14:41 97.2 F 115 H 20 148/104 H 95
[2020-10-23] MEDS ORDERED: Ertapenem 1 GM in Sodium Chloride 0.9% 50 ML IV ONE (15:49)
[2020-10-23] MEDS ORDERED: Ondansetron 4 MG/2 ML SDV IVPUSH ONE (16:00)
[2020-10-23] MEDS ORDERED: Ertapenem 1 GM Vial ONE (16:04)
[2020-10-23] MEDS ORDERED: Sodium Chloride 0.9% 50 ML ONE (16:05)
[2020-10-23 16:21] LABS: CARBON DIOXIDE,CO2 27.4 mmol/L (21.0-32.0); POTASSIUM,K 4.5 mmol/L (3.5-5.1)
[2020-10-23] MEDS ORDERED: Insulin Regular, Human 100 Units/ML 10 ML Vial SUBCUT ONE ×3 (17:49→20:46)
[2020-10-23] MEDS ORDERED: Glucagon,Human Recombinant 1 MG Vial IM PRN ×3 (17:49→20:46)
[2020-10-23] MEDS ORDERED: 50% Dextrose in Water 50 ML Syringe IV PRN ×3 (17:49→20:46)
[2020-10-23] MEDS ORDERED: Insulin Glargine,Human Rec. Analog 100 Units/ML 3 ML Pen ONE (23:21)
[2020-10-24] MEDS: Insulin Glargine,Human Rec. Analog 100 Units/ML 3 ML Pen SUBCUT ONE ×2 (00:07→21:32)
--- NOTE | 2020-10-24 00:51 | CT ---
INDICATION: Foot ulcer. TECHNIQUE: Axial images. Sagittal and coronal reconstructions. 100 mL Isovue-370 IV. COMPARISON: MRI from 09/12/2020. CT from 08/24/2020. FINDINGS: Along the plantar aspect of the forefoot, beneath the head of the 2nd metatarsal on sagittal image 52, there is a skin defect/ulcer measuring up to 6 mm. There is a tract of fluid which extends from this ulcer into the adjacent soft tissues. A poorly defined rim enhancing fluid collection is noted within the subcutaneous tissues superficial to the head of the 2nd metatarsal, measuring 1.6 x 2 x 1.2 cm. This likely represents a developing abscess/phlegmon. There is no appreciable bony destruction of the adjacent 2nd metatarsal head to suggest osteomyelitis. There is a 2nd poorly defined rim enhancing fluid collection seen in the plantar aspect of the forefoot, just superficial to the medial hallux sesamoid, which measures 0.9 x 1 x 0.7 cm. No new bony changes are seen to suggest osteomyelitis of the sesamoid. IMPRESSION: Redemonstration of an ulcer along the plantar aspect of the forefoot, beneath this head of the 2nd metatarsal. There are two poorly defined rim enhancing fluid collections seen in subcutaneous tissues of the forefoot, one beneath the head of the 2nd metatarsal, and the other beneath the medial hallux sesamoid. These likely represent developing abscesses/phlegmon. By CT, there are no associated bony changes to suggest osteomyelitis, although note should be made that CT is not as sensitive for the detection of osteomyelitis as MRI. Please note that all CT scans at this facility use dose modulation, iterative reconstruction, and/or weight-based dosing when appropriate to reduce radiation dose to as low as reasonably achievable. Dictated by Kvng Nuñez MD @ 10/24/2020 8:12:[address] Kvng Nuñez @ Oct 24 2020 8:12AM
[2020-10-24] MEDS ORDERED: Acetaminophen 325 MG Tab PO PRN (02:49)
[2020-10-24] MEDS ORDERED: Albuterol/Ipratropium 3.0-0.5 MG/3 ML Neb Soln NEB PRN (02:49)
[2020-10-24] MEDS ORDERED: Glucagon,Human Recombinant 1 MG Vial IM PRN (02:52)
[2020-10-24] MEDS ORDERED: 50% Dextrose in Water 50 ML Syringe IV PRN (02:52)
[2020-10-24] MEDS: Enoxaparin 40 MG/0.4 ML Syringe SUBCUT SCH (03:48)
[2020-10-24 05:58] LABS: BLOOD UREA NITROGEN,BUN 15 mg/dL (7.0-18.0); CARBON DIOXIDE,CO2 30.1 mmol/L (21.0-32.0); CHLORIDE,CL 101 mmol/L (98-107); GLUCOSE RANDOM 170 mg/dL (74-106); SODIUM,NA 138 mmol/L (136-145)
[2020-10-24] MEDS: Pantoprazole 40 MG Tab.CR PO SCH (06:36)
[2020-10-24] MEDS: Insulin Aspart 100 Units/ML 3 ML Pen SUBCUT SCH ×3 (08:08→17:31)
[2020-10-24] MEDS: Gabapentin 300 MG Cap PO SCH (08:41)
[2020-10-24] MEDS: DULoxetine 30 MG Cap PO SCH (08:41)
--- NOTE | 2020-10-24 08:49 | PCM.HP.2 ---
<Mariela Chen - Last Filed: 10/24/20 13:04> H&P History of Present Illness - General Date of Service: 10/24/20 Admit Problem/Dx: Admission Diagnosis/Problem Admission Diagnosis/Problem Cellulitis Source of Information: Patient History Limitations: Reports: No Limitations - History of Present Illness Initial Comments - Free Text/Narative: Patient is a four 55-year-old female with a significant past medical history of poorly controlled diabetes, chronic lower neuropathy, hypertension, hyperlipidemia and obesity presented to the emergency room on 10/24/2020 with complaints of right diabetic foot ulcer changes. Of note patient has been on IV antibiotics up until 5 days ago for greater than 4 weeks status post repeat debridement/drainage courtesy of outpatient podiatry. Patient presented to the ED due to concerns about increasing redness and serosanguineous drainage from between the right first and second toes. Of note patient cannot feel any sensation in her feet due to her diabetic neuropathy and the symptoms were also accompanied with general malaise.. Patient had notified her hemodialysis charge nurse/Dr. Phelps and he had recommended patient proceed to the ED. ED course: 1 g ertapenem given Lactate 2.5. Fluid resuscitated. 25 units of regular insulin given in light of her blood sugar being 288. Right foot CT: No acute signs of osteomyelitis. 2 poorly defined rim-enhancing fluid collection seen in subcutaneous tissue of the forefoot 1 beneath the head of the second right metatarsal and the other beta medial hallux sesamoid likely representing developing abscess/phlegmon Bedside: Endorses similar story as above. Of note states that sensation has been improving in her feet since better/tighter control of her blood sugars. Mentions redness noted over plantar aspect of right foot was wearing her and contacting podiatry and proceeding to the ED. Patient otherwise denies any fevers, chills, chest pain, shortness of breath. R foot Pain Score (Numeric/FACES): 1 - Related Data Allergies/Adverse Reactions: Allergies Allergy/AdvReac Type Severity Reaction Status Date / Time No Known Allergies Allergy Verified 10/24/20 01:56 Home Medications: Home Meds Insulin Regular, Human [Novolin R] 20 unit SQ BIDMEALS 08/16/20 [History] Gabapentin [Neurontin] 300 mg PO DAILY 08/24/20 [History] atorvaSTATin [Lipitor] 20 mg PO BEDTIME 08/24/20 [History] lisinopriL [Lisinopril] 20 mg PO DAILY 08/24/20 [History] metFORMIN HCl [Metformin HCl] 500 mg PO BIDMEALS 08/24/20 [History] DULoxetine [Cymbalta] 30 mg PO DAILY 08/26/20 [History] Acetaminophen [Tylenol] 650 mg PO Q4H PRN tablet 09/19/20 [Rx] Insulin Isophane NPH, Human [NovoLIN N] 20 unit SQ BID 10/23/20 [History] Pantoprazole Sodium [Protonix] 40 mg PO DAILY PRN 10/24/20 [History] Past Medical History HEENT History: Reports: Impaired Vision Other HEENT History: patient wears eyeglasses Cardiovascular History: Reports: High Cholesterol, Hypertension Respiratory History: Reports: Bronchitis, Recurrent Gastrointestinal History: Reports: Pancreatitis Genitourinary History: Reports: Other (See Below) Other Genitourinary History: Major Kidney Infections 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: Musculoskeletal History: Reports: Arthritis, Other (See Below) Other Musculoskeletal History: lower back arthritis, R shoulder arthritis' diabetic foot Neurological History: Reports: Neuropathy, Diabetic Psychiatric History: Reports: Depression Endocrine/Metabolic History: Reports: Diabetes, Type II Dermatologic History: Reports: Other (See Below) Other Dermatologic History: diabetic foot - Infectious Disease History Infectious Disease History: Reports: Chicken Pox, Measles - Past Surgical History HEENT Surgical History: Reports: None Cardiovascular Surgical History: Reports: None Respiratory Surgical History: Reports: None GI Surgical History: Reports: Cholecystectomy Female Surgical History: Reports: None Endocrine Surgical History: Reports: None Neurological Surgical History: Reports: None Musculoskeletal Surgical History: Reports: Shoulder Surgery Social & Family History - Family History Family Medical History: No Pertinent Family History - Tobacco Use Tobacco Use Status *Q: Never Tobacco User Second Hand Smoke Exposure: No - Caffeine Use Caffeine Use: Reports: Tea Other Caffeine Use: flavored water - Recreational Drug Use Recreational Drug Use: No H&P Review of Systems - Review of Systems: Review Of Systems: See Below General: Reports: Malaise. Denies: Fever, Chills HEENT: Reports: No Symptoms Pulmonary: Reports: No Symptoms Cardiovascular: Reports: No Symptoms Gastrointestinal: Reports: No Symptoms Musculoskeletal: Reports: Foot Pain Skin: Reports: Wound Neurological: Reports: Numbness, Paresthesia, Pre-Existing Deficit Exam - Exam Exam: See Below - Vital Signs Vital Signs: Last Vital Signs Temp 97.6 F 10/24/20 07:45 Pulse 95 10/24/20 07:45 Resp 16 10/24/20 07:45 BP 127/76 10/24/20 07:45 Pulse Ox 95 10/24/20 07:45 Weight: 104.871 kg - Exam Quality Assessment: No: Supplemental Oxygen General: Alert, Oriented, Cooperative HEENT: EOMI Neck: Supple, Trachea Midline Lungs: Clear to Auscultation, Normal Respiratory Effort Cardiovascular: Regular Rate, Regular Rhythm GI/Abdominal Exam: Soft, Non-Tender Extremities: Other (right foot: plantar aspect 2 x 2 cm area of thickened skin/plantar aspect w.3 x 3 cm area of hardened callus formation; sensation diminhsed ; ROM intact; erythema noted between 2 nd and 3rd digits is minimal........left foot: open linear wound w.o bleeding noted between diigits ; ) Skin: Warm, Wound Neurological: No: Sensation Intact Psychiatric: Alert, Normal Affect, Normal Mood - Patient Data Lab Results Last 24 hrs: Laboratory Results - last 24 hr 10/23/20 10/23/20 10/23/20 Range/Units 15:25 15:25 15:25 WBC 11.72 H (4.0-11.0) K/uL RBC 4.77 (4.30-5.90) M/uL Hgb 14.8 (12.0-16.0) g/dL Hct 43.4 (36.0-46.0) % MCV 91.0 (80.0-98.0) fL MCH 31.0 (27.0-32.0) pg MCHC 34.1 (31.0-37.0) g/dL RDW Std Deviation 41.1 (28.0-62.0) fl RDW Coeff of Olimpia 12 (11.0-15.0) % Plt Count 344 (150-400) K/uL MPV 11.00 (7.40-12.00) fL Neut % (Auto) 60.5 (48.0-80.0) % Lymph % (Auto) 28.2 (16.0-40.0) % Dillon % (Auto) 8.8 (0.0-15.0) % Eos % (Auto) 2.2 (0.0-7.0) % Baso % (Auto) 0.3 (0.0-1.5) % Neut # (Auto) 7.1 H (1.4-5.7) K/uL Lymph # (Auto) 3.3 H (0.6-2.4) K/uL Dillon # (Auto) 1.0 H (0.0-0.8) K/uL Eos # (Auto) 0.3 (0.0-0.7) K/uL Baso # (Auto) 0.0 (0.0-0.1) K/uL Nucleated RBC % 0.0 /100WBC Nucleated RBCs # 0 K/uL INR Sodium 134 L (136-145) mmol/L Potassium 4.5 (3.5-5.1) mmol/L Chloride 96 L (98-107) mmol/L Carbon Dioxide 27.4 (21.0-32.0) mmol/L BUN 19 H (7.0-18.0) mg/dL Creatinine 1.1 H (0.6-1.0) mg/dL Est Cr Clr Drug Dosing 51.39 mL/min Estimated GFR (MDRD) 51.4 ml/min Glucose 388 H (74-106) mg/dL POC Glucose (70-99) mg/dL Lactic Acid 2.5 H* (0.4-2.0) mmol/L Calcium 9.3 (8.5-10.1) mg/dL Total Bilirubin 0.5 (0.2-1.0) mg/dL AST 20 (15-37) IU/L ALT 33 (14-63) IU/L Alkaline Phosphatase 91 (46-116) U/L Lactate Dehydrogenase (81-234) U/L C-Reactive Protein 7.30 H (0.00-0.90) mg/dL Total Protein 7.8 (6.4-8.2) g/dL Albumin 3.1 L (3.4-5.0) g/dL Globulin 4.7 H (2.6-4.0) g/dL Albumin/Globulin Ratio 0.7 L (0.9-1.6) Urine Color Urine Appearance Urine pH (5.0-8.0) Ur Specific [place] (1.001-1.035) Urine Protein (NEGATIVE) mg/dL Urine Glucose (UA) (NEGATIVE) mg/dL Urine Ketones (NEGATIVE) mg/dL Urine Occult Blood (NEGATIVE) Urine Nitrite (NEGATIVE) Urine Bilirubin (NEGATIVE) Urine Urobilinogen (<2.0) EU/dL Ur Leukocyte Esterase (NEGATIVE) Urine RBC (0-2/HPF) Urine WBC (0-5/HPF) Ur Epithelial Cells (NONE-FEW) Urine Bacteria (NEGATIVE) SARS-CoV-2 RNA (YOUNG) (NEGATIVE) 10/23/20 10/23/20 10/23/20 Range/Units 15:25 15:25 20:24 WBC (4.0-11.0) K/uL RBC (4.30-5.90) M/uL Hgb (12.0-16.0) g/dL Hct (36.0-46.0) % MCV (80.0-98.0) fL MCH (27.0-32.0) pg MCHC (31.0-37.0) g/dL RDW Std Deviation (28.0-62.0) fl RDW Coeff of Olimpia (11.0-15.0) % Plt Count (150-400) K/uL MPV (7.40-12.00) fL Neut % (Auto) (48.0-80.0) % Lymph % (Auto) (16.0-40.0) % Dillon % (Auto) (0.0-15.0) % Eos % (Auto) (0.0-7.0) % Baso % (Auto) (0.0-1.5) % Neut # (Auto) (1.4-5.7) K/uL Lymph # (Auto) (0.6-2.4) K/uL Dillon # (Auto) (0.0-0.8) K/uL Eos # (Auto) (0.0-0.7) K/uL Baso # (Auto) (0.0-0.1) K/uL Nucleated RBC % /100WBC Nucleated RBCs # K/uL INR 1.04 Sodium (136-145) mmol/L Potassium (3.5-5.1) mmol/L Chloride (98-107) mmol/L Carbon Dioxide (21.0-32.0) mmol/L BUN (7.0-18.0) mg/dL Creatinine (0.6-1.0) mg/dL Est Cr Clr Drug Dosing mL/min Estimated GFR (MDRD) ml/min Glucose (74-106) mg/dL POC Glucose (70-99) mg/dL Lactic Acid 1.7 (0.4-2.0) mmol/L Calcium (8.5-10.1) mg/dL Total Bilirubin (0.2-1.0) mg/dL AST (15-37) IU/L ALT (14-63) IU/L Alkaline Phosphatase (46-116) U/L Lactate Dehydrogenase 187 (81-234) U/L C-Reactive Protein (0.00-0.90) mg/dL Total Protein (6.4-8.2) g/dL Albumin (3.4-5.0) g/dL Globulin (2.6-4.0) g/dL Albumin/Globulin Ratio (0.9-1.6) Urine Color Urine Appearance Urine pH (5.0-8.0) Ur Specific [place] (1.001-1.035) Urine Protein (NEGATIVE) mg/dL Urine Glucose (UA) (NEGATIVE) mg/dL Urine Ketones (NEGATIVE) mg/dL Urine Occult Blood (NEGATIVE) Urine Nitrite (NEGATIVE) Urine Bilirubin (NEGATIVE) Urine Urobilinogen (<2.0) EU/dL Ur Leukocyte Esterase (NEGATIVE) Urine RBC (0-2/HPF) Urine WBC (0-5/HPF) Ur Epithelial Cells (NONE-FEW) Urine Bacteria (NEGATIVE) SARS-CoV-2 RNA (YOUNG) (NEGATIVE) 10/23/20 10/23/20 10/23/20 Range/Units 21:06 21:26 21:29 WBC (4.0-11.0) K/uL RBC (4.30-5.90) M/uL Hgb (12.0-16.0) g/dL Hct (36.0-46.0) % MCV (80.0-98.0) fL MCH (27.0-32.0) pg MCHC (31.0-37.0) g/dL RDW Std Deviation (28.0-62.0) fl RDW Coeff of Olimpia (11.0-15.0) % Plt Count (150-400) K/uL MPV (7.40-12.00) fL Neut % (Auto) (48.0-80.0) % Lymph % (Auto) (16.0-40.0) % Dillon % (Auto) (0.0-15.0) % Eos % (Auto) (0.0-7.0) % Baso % (Auto) (0.0-1.5) % Neut # (Auto) (1.4-5.7) K/uL Lymph # (Auto) (0.6-2.4) K/uL Dillon # (Auto) (0.0-0.8) K/uL Eos # (Auto) (0.0-0.7) K/uL Baso # (Auto) (0.0-0.1) K/uL Nucleated RBC % /100WBC Nucleated RBCs # K/uL INR Sodium (136-145) mmol/L Potassium (3.5-5.1) mmol/L Chloride (98-107) mmol/L Carbon Dioxide (21.0-32.0) mmol/L BUN (7.0-18.0) mg/dL Creatinine (0.6-1.0) mg/dL Est Cr Clr Drug Dosing mL/min Estimated GFR (MDRD) ml/min Glucose (74-106) mg/dL POC Glucose 296 H (70-99) mg/dL Lactic Acid (0.4-2.0) mmol/L Calcium (8.5-10.1) mg/dL Total Bilirubin (0.2-1.0) mg/dL AST (15-37) IU/L ALT (14-63) IU/L Alkaline Phosphatase (46-116) U/L Lactate Dehydrogenase (81-234) U/L C-Reactive Protein (0.00-0.90) mg/dL Total Protein (6.4-8.2) g/dL Albumin (3.4-5.0) g/dL Globulin (2.6-4.0) g/dL Albumin/Globulin Ratio (0.9-1.6) Urine Color YELLOW Urine Appearance SLT CLOUDY Urine pH 6.0 (5.0-8.0) Ur Specific [place] 1.025 (1.001-1.035) Urine Protein NEGATIVE (NEGATIVE) mg/dL Urine Glucose (UA) 250 H (NEGATIVE) mg/dL Urine Ketones NEGATIVE (NEGATIVE) mg/dL Urine Occult Blood TRACE-INTACT H (NEGATIVE) Urine Nitrite NEGATIVE (NEGATIVE) Urine Bilirubin NEGATIVE (NEGATIVE) Urine Urobilinogen 0.2 (<2.0) EU/dL Ur Leukocyte Esterase NEGATIVE (NEGATIVE) Urine RBC 1-3 (0-2/HPF) Urine WBC 0-2 (0-5/HPF) Ur Epithelial Cells MODERATE (NONE-FEW) Urine Bacteria FEW (NEGATIVE) SARS-CoV-2 RNA (YOUNG) NEGATIVE (NEGATIVE) 10/23/20 10/24/20 10/24/20 Range/Units 21:58 00:05 01:23 WBC (4.0-11.0) K/uL RBC (4.30-5.90) M/uL Hgb (12.0-16.0) g/dL Hct (36.0-46.0) % MCV (80.0-98.0) fL MCH (27.0-32.0) pg MCHC (31.0-37.0) g/dL RDW Std Deviation (28.0-62.0) fl RDW Coeff of Olimpia (11.0-15.0) % Plt Count (150-400) K/uL MPV (7.40-12.00) fL Neut % (Auto) (48.0-80.0) % Lymph % (Auto) (16.0-40.0) % Dillon % (Auto) (0.0-15.0) % Eos % (Auto) (0.0-7.0) % Baso % (Auto) (0.0-1.5) % Neut # (Auto) (1.4-5.7) K/uL Lymph # (Auto) (0.6-2.4) K/uL Dillon # (Auto) (0.0-0.8) K/uL Eos # (Auto) (0.0-0.7) K/uL Baso # (Auto) (0.0-0.1) K/uL Nucleated RBC % /100WBC Nucleated RBCs # K/uL INR Sodium (136-145) mmol/L Potassium (3.5-5.1) mmol/L Chloride (98-107) mmol/L Carbon Dioxide (21.0-32.0) mmol/L BUN (7.0-18.0) mg/dL Creatinine (0.6-1.0) mg/dL Est Cr Clr Drug Dosing mL/min Estimated GFR (MDRD) ml/min Glucose (74-106) mg/dL POC Glucose 288 H 239 H 204 H (70-99) mg/dL Lactic Acid (0.4-2.0) mmol/L Calcium (8.5-10.1) mg/dL Total Bilirubin (0.2-1.0) mg/dL AST (15-37) IU/L ALT (14-63) IU/L Alkaline Phosphatase (46-116) U/L Lactate Dehydrogenase (81-234) U/L C-Reactive Protein (0.00-0.90) mg/dL Total Protein (6.4-8.2) g/dL Albumin (3.4-5.0) g/dL Globulin (2.6-4.0) g/dL Albumin/Globulin Ratio (0.9-1.6) Urine Color Urine Appearance Urine pH (5.0-8.0) Ur Specific [place] (1.001-1.035) Urine Protein (NEGATIVE) mg/dL Urine Glucose (UA) (NEGATIVE) mg/dL Urine Ketones (NEGATIVE) mg/dL Urine Occult Blood (NEGATIVE) Urine Nitrite (NEGATIVE) Urine Bilirubin (NEGATIVE) Urine Urobilinogen (<2.0) EU/dL Ur Leukocyte Esterase (NEGATIVE) Urine RBC (0-2/HPF) Urine WBC (0-5/HPF) Ur Epithelial Cells (NONE-FEW) Urine Bacteria (NEGATIVE) SARS-CoV-2 RNA (YOUNG) (NEGATIVE) 10/24/20 10/24/20 10/24/20 Range/Units 05:15 05:15 06:34 WBC 8.86 (4.0-11.0) K/uL RBC 4.30 (4.30-5.90) M/uL Hgb 13.2 (12.0-16.0) g/dL Hct 39.2 (36.0-46.0) % MCV 91.2 (80.0-98.0) fL MCH 30.7 (27.0-32.0) pg MCHC 33.7 (31.0-37.0) g/dL RDW Std Deviation 41.6 (28.0-62.0) fl RDW Coeff of Olimpia 13 (11.0-15.0) % Plt Count 304 (150-400) K/uL MPV 10.60 (7.40-12.00) fL Neut % (Auto) 58.5 (48.0-80.0) % Lymph % (Auto) 27.2 (16.0-40.0) % Dillon % (Auto) 9.9 (0.0-15.0) % Eos % (Auto) 4.2 (0.0-7.0) % Baso % (Auto) 0.2 (0.0-1.5) % Neut # (Auto) 5.2 (1.4-5.7) K/uL Lymph # (Auto) 2.4 (0.6-2.4) K/uL Dillon # (Auto) 0.9 H (0.0-0.8) K/uL Eos # (Auto) 0.4 (0.0-0.7) K/uL Baso # (Auto) 0.0 (0.0-0.1) K/uL Nucleated RBC % 0.0 /100WBC Nucleated RBCs # 0 K/uL INR Sodium 138 (136-145) mmol/L Potassium 4.0 (3.5-5.1) mmol/L Chloride 101 (98-107) mmol/L Carbon Dioxide 30.1 (21.0-32.0) mmol/L BUN 15 (7.0-18.0) mg/dL Creatinine 0.9 (0.6-1.0) mg/dL Est Cr Clr Drug Dosing 62.70 mL/min Estimated GFR (MDRD) > 60.0 ml/min Glucose 170 H (74-106) mg/dL POC Glucose 149 H (70-99) mg/dL Lactic Acid (0.4-2.0) mmol/L Calcium 8.5 (8.5-10.1) mg/dL Total Bilirubin (0.2-1.0) mg/dL AST (15-37) IU/L ALT (14-63) IU/L Alkaline Phosphatase (46-116) U/L Lactate Dehydrogenase (81-234) U/L C-Reactive Protein (0.00-0.90) mg/dL Total Protein (6.4-8.2) g/dL Albumin (3.4-5.0) g/dL Globulin (2.6-4.0) g/dL Albumin/Globulin Ratio (0.9-1.6) Urine Color Urine Appearance Urine pH (5.0-8.0) Ur Specific [place] (1.001-1.035) Urine Protein (NEGATIVE) mg/dL Urine Glucose (UA) (NEGATIVE) mg/dL Urine Ketones (NEGATIVE) mg/dL Urine Occult Blood (NEGATIVE) Urine Nitrite (NEGATIVE) Urine Bilirubin (NEGATIVE) Urine Urobilinogen (<2.0) EU/dL Ur Leukocyte Esterase (NEGATIVE) Urine RBC (0-2/HPF) Urine WBC (0-5/HPF) Ur Epithelial Cells (NONE-FEW) Urine Bacteria (NEGATIVE) SARS-CoV-2 RNA (YOUNG) (NEGATIVE) Result Diagrams: 10/24/20 05:15 10/24/20 05:15 Sepsis Event Note - Evaluation Sepsis Screening Result: No Definite Risk - Focused Exam Vital Signs: Vital Signs Temp Pulse Resp BP BP Pulse Ox 10/24/20 07:45 97.6 F 95 16 127/76 95 10/24/20 02:10 98.4 F 86 17 126/84 94 L - Problem List (1) Cellulitis of foot SNOMED Code(s): 381170252 ICD Code: L03.119 - CELLULITIS OF UNSPECIFIED PART OF LIMB Status: Acute Current Visit: Yes (2) Diabetic foot ulcer SNOMED Code(s): 730657894 ICD Code: E11.621 - TYPE 2 DIABETES MELLITUS WITH FOOT ULCER; L97.509 - NON- PRESSURE CHRONIC ULCER OTH PRT UNSP FOOT W UNSP SEVERITY Status: Acute Current Visit: No Qualifiers: Diabetes mellitus type: type 2 Laterality: right Non-pressure ulcer s tage: with necrosis of muscle (3) Hyperlipemia SNOMED Code(s): 72326869 ICD Code: E78.5 - HYPERLIPIDEMIA, UNSPECIFIED Status: Chronic Current Visit: No (4) Hypertension SNOMED Code(s): 32617638 ICD Code: I10 - ESSENTIAL (PRIMARY) HYPERTENSION Status: Chronic Current Visit: No (5) Neuropathy SNOMED Code(s): 337406737 ICD Code: G62.9 - POLYNEUROPATHY, UNSPECIFIED Status: Chronic Current Visit: No (6) Obesity SNOMED Code(s): 059673928, 974736634 ICD Code: E66.9 - OBESITY, UNSPECIFIED Status: Chronic Current Visit: No Problem List Initiated/Reviewed/Updated: Yes Orders Last 24hrs: Active Orders 24 hr Category Date Time Status Patient Status [ADT] Routine ADT 10/24/20 00:54 Active Accu Check [Blood Glucose Check, Bedside] [RC] TIDAC Care 10/24/20 03:32 Active Ambulate [RC] ASDIRECTED Care 10/24/20 02:49 Active Antiembolic Devices [RC] PER UNIT ROUTINE Care 10/24/20 02:51 Active Cardiac Monitoring [RC] . DIRECTED Care 10/23/20 16:43 Active Oxygen Therapy [RC] PRN Care 10/24/20 02:49 Active Pulse Oximetry [RC] PRN Care 10/24/20 02:50 Active RT Aerosol Therapy [RC] ASDIRECTED Care 10/24/20 02:51 Active VTE/DVT Education [RC] PER UNIT ROUTINE Care 10/24/20 02:49 Active Vital Signs [RC] Q4H Care 10/24/20 02:49 Active [place] Diet [DIET] Diet 10/24/20 Dinner Active CBC WITH AUTO DIFF [HEME] AM Lab 10/25/20 05:11 Ordered CBC WITH AUTO DIFF [HEME] AM Lab 10/26/20 05:11 Ordered CBC WITH AUTO DIFF [HEME] AM Lab 10/27/20 05:11 Ordered COMPREHENSIVE METABOLIC PN,CMP [CHEM] AM Lab 10/25/20 05:11 Ordered COMPREHENSIVE METABOLIC PN,CMP [CHEM] AM Lab 10/26/20 05:11 Ordered COMPREHENSIVE METABOLIC PN,CMP [CHEM] AM Lab 10/27/20 05:11 Ordered CULTURE BLOOD [BC] Stat Lab 10/23/20 15:25 Received CULTURE BLOOD [BC] Stat Lab 10/23/20 15:39 Received Acetaminophen [TylenoL] Med 10/24/20 02:49 Active 650 mg PO Q4H PRN Albuterol/Ipratropium [DuoNeb 3.0-0.5 MG/3 ML] Med 10/24/20 02:49 Active 3 ml NEB Q4HRRT PRN DULoxetine [Cymbalta] Med 10/24/20 09:00 Active 30 mg PO DAILY Dextrose 50% in Water Med 10/23/20 17:49 Active 50 ml IV ASDIRECTED PRN Dextrose 50% in Water Med 10/24/20 02:52 Active 50 ml IV ASDIRECTED PRN Enoxaparin [Lovenox] Med 10/24/20 03:00 Active 40 mg SUBCUT Q24H Ertapenem [INVanz] 1 gm Med 10/24/20 16:00 Active Sodium Chloride 0.9% [Normal Saline] 50 ml IV Q24H Gabapentin [Neurontin] Med 10/24/20 09:00 Active 300 mg PO DAILY Glucagon,Human Recombinant [GlucaGen] Med 10/24/20 02:52 Active 1 mg IM ASDIRECTED PRN Insulin Aspart [NovoLOG] Med 10/24/20 07:30 Active See Protocol SUBCUT TIDAC Insulin Glarg,Human.Rec.Analog [LantUS Solostar] Med 10/24/20 22:03 Once 25 units SUBCUT BEDTIME ONE Pantoprazole [ProTONIX] Med 10/24/20 07:30 Active 40 mg PO ACBREAKFAST atorvaSTATin [Lipitor] Med 10/24/20 21:00 Active 20 mg PO BEDTIME Blood Culture x2 Reflex Set [OM.PC] Stat Ot 10/23/20 15:08 Ordered Sequential Compression Device [OM.PC] Per Unit Routine Oth 10/24/20 02:50 Ordered Medication Orders Acetaminophen (Acetaminophen 325 Mg Tab) 650 mg PO Q4H PRN PRN Reason: Pain (Mild 1-3)/fever Albuterol/Ipratropium (Albuterol/Ipratropium 3.0-0.5 Mg/3 Ml Neb Soln) 3 ml NEB Q4HRRT PRN PRN Reason: Shortness Of Breath/wheezing Atorvastatin Calcium (Atorvastatin 40 Mg Tab) 20 mg PO BEDTIME МАРИНА Dextrose/Water (50% Dextrose In Water 50 Ml Syringe) 50 ml IV ASDIRECTED PRN PRN Reason: Hypoglycemia Dextrose/Water (50% Dextrose In Water 50 Ml Syringe) 50 ml IV ASDIRECTED PRN PRN Reason: Hypoglycemia Duloxetine HCl (Duloxetine 30 Mg Cap) 30 mg PO DAILY [facility] Last Admin: 10/24/20 08:41 Dose: 30 mg Documented by: SEMICHR Enoxaparin Sodium (Enoxaparin 40 Mg/0.4 Ml Syringe) 40 mg SUBCUT Q24H [facility] Last Admin: 10/24/20 03:48 Dose: 40 mg Documented by: MATEO Gabapentin (Gabapentin 300 Mg Cap) 300 mg PO DAILY МАРИНА Last Admin: 10/24/20 08:41 Dose: 300 mg Documented by: EMMA Glucagon (Glucagon,Human Recombinant 1 Mg Vial) 1 mg IM ASDIRECTED PRN PRN Reason: Hypoglycemia Ertapenem 1 gm/ Sodium (Chloride) 50 mls @ 100 mls/hr IV Q24H [facility] Insulin Aspart (Insulin Aspart 100 Units/Ml 3 Ml Pen) 0 unit SUBCUT TIDAC МАРИНА; Protocol Last Admin: 10/24/20 08:08 Dose: Not Given Documented by: EMMA Insulin Glargine (Insulin Glargine,Human Rec. Analog 100 Units/Ml 3 Ml Pen) 25 units SUBCUT BEDTIME ONE Stop: 10/24/20 22:04 Last Admin: 10/24/20 00:07 Dose: 25 units Documented by: JEROME Pantoprazole Sodium (Pantoprazole 40 Mg Tab.Cr) 40 mg PO ACBREAKFAST [facility] Last Admin: 10/24/20 06:36 Dose: 40 mg Documented by: GABBIE Assessment/Plan Comment:: Assessment: 1. Diabetic foot ulcer with possible phlegmon/abscess formation. 2. Cellulitis 3. Hyperglycemia in a type II diabetic 4. Past medical history: Hypertension, hyperlipidemia, diabetic neuropathy, obesity Plan Admit to observation. Full code. I's and O's vitals per routine. Diabetic diet Lovenox Pantoprazole 1. Diabetic foot ulcer with possible phlegmon/abscess formation: Continue ertapenem. Based off of CT scan discussed findings preston Phelps of podiatry; will continue to medically manage at this time unless clinically indicated; will be set up with Podiatry this coming . Recommended repeat wound cultures this AM and continue abx. PICC line in-situ; may require ertapenem daily until seen by podiatry. If drainage increases, WBC increases or signs of deterioration; may consider transfer for podiatry intervention/consult. . Vital signs stable labs except for elevated blood glucose unremarkable. UA negative. Covid negative. Minimal drainage over left foot wound; due to poorly controlled glucose will order CT/contrast imaging of left foot as well. 2. Hyperglycemia type II diabetic: We will continue home regimen of long-acting plus short acting insulin; patient does have a home regimen of 25-30 long- acting insulin in a.m./p.m. Diet Diabetic neuropathy: Continue gabapentin. Past medical history: Continue home medication except Metformin <Ye Arteaga - Last Filed: 10/24/20 18:12> H&P History of Present Illness - General Admit Problem/Dx: Admission Diagnosis/Problem Admission Diagnosis/Problem Cellulitis Exam - Vital Signs Vital Signs: Last Vital Signs Temp 36.4 C 10/24/20 16:00 Pulse 102 H 10/24/20 16:00 Resp 16 10/24/20 16:00 BP 150/83 H 10/24/20 16:00 Pulse Ox 94 L 10/24/20 16:00 - Patient Data Lab Results Last 24 hrs: Laboratory Results - last 24 hr 10/23/20 10/23/20 10/23/20 Range/Units 15:25 20:24 21:06 WBC (4.0-11.0) K/uL RBC (4.30-5.90) M/uL Hgb (12.0-16.0) g/dL Hct (36.0-46.0) % MCV (80.0-98.0) fL MCH (27.0-32.0) pg MCHC (31.0-37.0) g/dL RDW Std Deviation (28.0-62.0) fl RDW Coeff of Olimpia (11.0-15.0) % Plt Count (150-400) K/uL MPV (7.40-12.00) fL Neut % (Auto) (48.0-80.0) % Lymph % (Auto) (16.0-40.0) % Dillon % (Auto) (0.0-15.0) % Eos % (Auto) (0.0-7.0) % Baso % (Auto) (0.0-1.5) % Neut # (Auto) (1.4-5.7) K/uL Lymph # (Auto) (0.6-2.4) K/uL Dillon # (Auto) (0.0-0.8) K/uL Eos # (Auto) (0.0-0.7) K/uL Baso # (Auto) (0.0-0.1) K/uL Nucleated RBC % /100WBC Nucleated RBCs # K/uL Sodium (136-145) mmol/L Potassium (3.5-5.1) mmol/L Chloride (98-107) mmol/L Carbon Dioxide (21.0-32.0) mmol/L BUN (7.0-18.0) mg/dL Creatinine (0.6-1.0) mg/dL Est Cr Clr Drug Dosing mL/min Estimated GFR (MDRD) ml/min Glucose (74-106) mg/dL POC Glucose (70-99) mg/dL Lactic Acid 1.7 (0.4-2.0) mmol/L Calcium (8.5-10.1) mg/dL Lactate Dehydrogenase 187 (81-234) U/L Urine Color Urine Appearance Urine pH (5.0-8.0) Ur Specific [place] (1.001-1.035) Urine Protein (NEGATIVE) mg/dL Urine Glucose (UA) (NEGATIVE) mg/dL Urine Ketones (NEGATIVE) mg/dL Urine Occult Blood (NEGATIVE) Urine Nitrite (NEGATIVE) Urine Bilirubin (NEGATIVE) Urine Urobilinogen (<2.0) EU/dL Ur Leukocyte Esterase (NEGATIVE) Urine RBC (0-2/HPF) Urine WBC (0-5/HPF) Ur Epithelial Cells (NONE-FEW) Urine Bacteria (NEGATIVE) SARS-CoV-2 RNA (YOUNG) NEGATIVE (NEGATIVE) 10/23/20 10/23/20 10/23/20 Range/Units 21:26 21:29 21:58 WBC (4.0-11.0) K/uL RBC (4.30-5.90) M/uL Hgb (12.0-16.0) g/dL Hct (36.0-46.0) % MCV (80.0-98.0) fL MCH (27.0-32.0) pg MCHC (31.0-37.0) g/dL RDW Std Deviation (28.0-62.0) fl RDW Coeff of Olimpia (11.0-15.0) % Plt Count (150-400) K/uL MPV (7.40-12.00) fL Neut % (Auto) (48.0-80.0) % Lymph % (Auto) (16.0-40.0) % Dillon % (Auto) (0.0-15.0) % Eos % (Auto) (0.0-7.0) % Baso % (Auto) (0.0-1.5) % Neut # (Auto) (1.4-5.7) K/uL Lymph # (Auto) (0.6-2.4) K/uL Dillon # (Auto) (0.0-0.8) K/uL Eos # (Auto) (0.0-0.7) K/uL Baso # (Auto) (0.0-0.1) K/uL Nucleated RBC % /100WBC Nucleated RBCs # K/uL Sodium (136-145) mmol/L Potassium (3.5-5.1) mmol/L Chloride (98-107) mmol/L Carbon Dioxide (21.0-32.0) mmol/L BUN (7.0-18.0) mg/dL Creatinine (0.6-1.0) mg/dL Est Cr Clr Drug Dosing mL/min Estimated GFR (MDRD) ml/min Glucose (74-106) mg/dL POC Glucose 296 H 288 H (70-99) mg/dL Lactic Acid (0.4-2.0) mmol/L Calcium (8.5-10.1) mg/dL Lactate Dehydrogenase (81-234) U/L Urine Color YELLOW Urine Appearance SLT CLOUDY Urine pH 6.0 (5.0-8.0) Ur Specific [place] 1.025 (1.001-1.035) Urine Protein NEGATIVE (NEGATIVE) mg/dL Urine Glucose (UA) 250 H (NEGATIVE) mg/dL Urine Ketones NEGATIVE (NEGATIVE) mg/dL Urine Occult Blood TRACE-INTACT H (NEGATIVE) Urine Nitrite NEGATIVE (NEGATIVE) Urine Bilirubin NEGATIVE (NEGATIVE) Urine Urobilinogen 0.2 (<2.0) EU/dL Ur Leukocyte Esterase NEGATIVE (NEGATIVE) Urine RBC 1-3 (0-2/HPF) Urine WBC 0-2 (0-5/HPF) Ur Epithelial Cells MODERATE (NONE-FEW) Urine Bacteria FEW (NEGATIVE) SARS-CoV-2 RNA (YOUNG) (NEGATIVE) 10/24/20 10/24/20 10/24/20 Range/Units 00:05 01:23 05:15 WBC 8.86 (4.0-11.0) K/uL RBC 4.30 (4.30-5.90) M/uL Hgb 13.2 (12.0-16.0) g/dL Hct 39.2 (36.0-46.0) % MCV 91.2 (80.0-98.0) fL MCH 30.7 (27.0-32.0) pg MCHC 33.7 (31.0-37.0) g/dL RDW Std Deviation 41.6 (28.0-62.0) fl RDW Coeff of Olimpia 13 (11.0-15.0) % Plt Count 304 (150-400) K/uL MPV 10.60 (7.40-12.00) fL Neut % (Auto) 58.5 (48.0-80.0) % Lymph % (Auto) 27.2 (16.0-40.0) % Dillon % (Auto) 9.9 (0.0-15.0) % Eos % (Auto) 4.2 (0.0-7.0) % Baso % (Auto) 0.2 (0.0-1.5) % Neut # (Auto) 5.2 (1.4-5.7) K/uL Lymph # (Auto) 2.4 (0.6-2.4) K/uL Dillon # (Auto) 0.9 H (0.0-0.8) K/uL Eos # (Auto) 0.4 (0.0-0.7) K/uL Baso # (Auto) 0.0 (0.0-0.1) K/uL Nucleated RBC % 0.0 /100WBC Nucleated RBCs # 0 K/uL Sodium (136-145) mmol/L Potassium (3.5-5.1) mmol/L Chloride (98-107) mmol/L Carbon Dioxide (21.0-32.0) mmol/L BUN (7.0-18.0) mg/dL Creatinine (0.6-1.0) mg/dL Est Cr Clr Drug Dosing mL/min Estimated GFR (MDRD) ml/min Glucose (74-106) mg/dL POC Glucose 239 H 204 H (70-99) mg/dL Lactic Acid (0.4-2.0) mmol/L Calcium (8.5-10.1) mg/dL Lactate Dehydrogenase (81-234) U/L Urine Color Urine Appearance Urine pH (5.0-8.0) Ur Specific [place] (1.001-1.035) Urine Protein (NEGATIVE) mg/dL Urine Glucose (UA) (NEGATIVE) mg/dL Urine Ketones (NEGATIVE) mg/dL Urine Occult Blood (NEGATIVE) Urine Nitrite (NEGATIVE) Urine Bilirubin (NEGATIVE) Urine Urobilinogen (<2.0) EU/dL Ur Leukocyte Esterase (NEGATIVE) Urine RBC (0-2/HPF) Urine WBC (0-5/HPF) Ur Epithelial Cells (NONE-FEW) Urine Bacteria (NEGATIVE) SARS-CoV-2 RNA (YOUNG) (NEGATIVE) 10/24/20 10/24/20 10/24/20 Range/Units 05:15 06:34 11:49 WBC (4.0-11.0) K/uL RBC (4.30-5.90) M/uL Hgb (12.0-16.0) g/dL Hct (36.0-46.0) % MCV (80.0-98.0) fL MCH (27.0-32.0) pg MCHC (31.0-37.0) g/dL RDW Std Deviation (28.0-62.0) fl RDW Coeff of Olimpia (11.0-15.0) % Plt Count (150-400) K/uL MPV (7.40-12.00) fL Neut % (Auto) (48.0-80.0) % Lymph % (Auto) (16.0-40.0) % Dillon % (Auto) (0.0-15.0) % Eos % (Auto) (0.0-7.0) % Baso % (Auto) (0.0-1.5) % Neut # (Auto) (1.4-5.7) K/uL Lymph # (Auto) (0.6-2.4) K/uL Dillon # (Auto) (0.0-0.8) K/uL Eos # (Auto) (0.0-0.7) K/uL Baso # (Auto) (0.0-0.1) K/uL Nucleated RBC % /100WBC Nucleated RBCs # K/uL Sodium 138 (136-145) mmol/L Potassium 4.0 (3.5-5.1) mmol/L Chloride 101 (98-107) mmol/L Carbon Dioxide 30.1 (21.0-32.0) mmol/L BUN 15 (7.0-18.0) mg/dL Creatinine 0.9 (0.6-1.0) mg/dL Est Cr Clr Drug Dosing 62.70 mL/min Estimated GFR (MDRD) > 60.0 ml/min Glucose 170 H (74-106) mg/dL POC Glucose 149 H 274 H (70-99) mg/dL Lactic Acid (0.4-2.0) mmol/L Calcium 8.5 (8.5-10.1) mg/dL Lactate Dehydrogenase (81-234) U/L Urine Color Urine Appearance Urine pH (5.0-8.0) Ur Specific [place] (1.001-1.035) Urine Protein (NEGATIVE) mg/dL Urine Glucose (UA) (NEGATIVE) mg/dL Urine Ketones (NEGATIVE) mg/dL Urine Occult Blood (NEGATIVE) Urine Nitrite (NEGATIVE) Urine Bilirubin (NEGATIVE) Urine Urobilinogen (<2.0) EU/dL Ur Leukocyte Esterase (NEGATIVE) Urine RBC (0-2/HPF) Urine WBC (0-5/HPF) Ur Epithelial Cells (NONE-FEW) Urine Bacteria (NEGATIVE) SARS-CoV-2 RNA (YOUNG) (NEGATIVE) 10/24/20 Range/Units 17:28 WBC (4.0-11.0) K/uL RBC (4.30-5.90) M/uL Hgb (12.0-16.0) g/dL Hct (36.0-46.0) % MCV (80.0-98.0) fL MCH (27.0-32.0) pg MCHC (31.0-37.0) g/dL RDW Std Deviation (28.0-62.0) fl RDW Coeff of Olimpia (11.0-15.0) % Plt Count (150-400) K/uL MPV (7.40-12.00) fL Neut % (Auto) (48.0-80.0) % Lymph % (Auto) (16.0-40.0) % Dillon % (Auto) (0.0-15.0) % Eos % (Auto) (0.0-7.0) % Baso % (Auto) (0.0-1.5) % Neut # (Auto) (1.4-5.7) K/uL Lymph # (Auto) (0.6-2.4) K/uL Dillon # (Auto) (0.0-0.8) K/uL Eos # (Auto) (0.0-0.7) K/uL Baso # (Auto) (0.0-0.1) K/uL Nucleated RBC % /100WBC Nucleated RBCs # K/uL Sodium (136-145) mmol/L Potassium (3.5-5.1) mmol/L Chloride (98-107) mmol/L Carbon Dioxide (21.0-32.0) mmol/L BUN (7.0-18.0) mg/dL Creatinine (0.6-1.0) mg/dL Est Cr Clr Drug Dosing mL/min Estimated GFR (MDRD) ml/min Glucose (74-106) mg/dL POC Glucose 325 H (70-99) mg/dL Lactic Acid (0.4-2.0) mmol/L Calcium (8.5-10.1) mg/dL Lactate Dehydrogenase (81-234) U/L Urine Color Urine Appearance Urine pH (5.0-8.0) Ur Specific [place] (1.001-1.035) Urine Protein (NEGATIVE) mg/dL Urine Glucose (UA) (NEGATIVE) mg/dL Urine Ketones (NEGATIVE) mg/dL Urine Occult Blood (NEGATIVE) Urine Nitrite (NEGATIVE) Urine Bilirubin (NEGATIVE) Urine Urobilinogen (<2.0) EU/dL Ur Leukocyte Esterase (NEGATIVE) Urine RBC (0-2/HPF) Urine WBC (0-5/HPF) Ur Epithelial Cells (NONE-FEW) Urine Bacteria (NEGATIVE) SARS-CoV-2 RNA (YOUNG) (NEGATIVE) Result Diagrams: 10/24/20 05:15 10/24/20 05:15 Kofi Results Last 24 hrs: Microbiology 10/23/20 15:39 Aerobic Blood Culture - Preliminary Blood - Venous - Lab Draw NO GROWTH AFTER 1 DAY Anaerobic Blood Culture - Preliminary NO GROWTH AFTER 1 DAY 10/23/20 15:25 Aerobic Blood Culture - Preliminary Blood - Venous NO GROWTH AFTER 1 DAY Anaerobic Blood Culture - Preliminary NO GROWTH AFTER 1 DAY Sepsis Event Note - Focused Exam Vital Signs: Vital Signs Temp Pulse Resp BP BP Pulse Ox 10/24/20 16:00 36.4 C 102 H 16 150/83 H 94 L 10/24/20 12:00 36.0 C L 91 17 141/89 H 92 L 10/24/20 07:45 36.4 C 95 16 127/76 95 Orders Last 24hrs: Active Orders 24 hr Category Date Time Status Patient Status [ADT] Routine ADT 10/24/20 00:54 Active Accu Check [Blood Glucose Check, Bedside] [RC] TIDAC Care 10/24/20 03:32 Active Ambulate [RC] ASDIRECTED Care 10/24/20 02:49 Active Antiembolic Devices [RC] PER UNIT ROUTINE Care 10/24/20 02:51 Active Oxygen Therapy [RC] PRN Care 10/24/20 02:49 Active Pulse Oximetry [RC] PRN Care 10/24/20 02:50 Active RT Aerosol Therapy [RC] ASDIRECTED Care 10/24/20 02:51 Active VTE/DVT Education [RC] PER UNIT ROUTINE Care 10/24/20 02:49 Active Vital Signs [RC] Q4H Care 10/24/20 02:49 Active [employer] Diet [DIET] Diet 10/24/20 Dinner Active CBC WITH AUTO DIFF [HEME] AM Lab 10/25/20 05:11 Ordered CBC WITH AUTO DIFF [HEME] AM Lab 10/26/20 05:11 Ordered CBC WITH AUTO DIFF [HEME] AM Lab 10/27/20 05:11 Ordered COMPREHENSIVE METABOLIC PN,CMP [CHEM] AM Lab 10/25/20 05:11 Ordered COMPREHENSIVE METABOLIC PN,CMP [CHEM] AM Lab 10/26/20 05:11 Ordered COMPREHENSIVE METABOLIC PN,CMP [CHEM] AM Lab 10/27/20 05:11 Ordered CULTURE WOUND [RM] Routine Lab 10/24/20 12:30 Received Acetaminophen [TylenoL] Med 10/24/20 02:49 Active 650 mg PO Q4H PRN Albuterol/Ipratropium [DuoNeb 3.0-0.5 MG/3 ML] Med 10/24/20 02:49 Active 3 ml NEB Q4HRRT PRN DULoxetine [Cymbalta] Med 10/24/20 09:00 Active 30 mg PO DAILY Dextrose 50% in Water Med 10/23/20 17:49 Active 50 ml IV ASDIRECTED PRN Dextrose 50% in Water Med 10/24/20 02:52 Active 50 ml IV ASDIRECTED PRN Enoxaparin [Lovenox] Med 10/24/20 03:00 Active 40 mg SUBCUT Q24H Ertapenem [INVanz] 1 gm Med 10/24/20 16:00 Active Sodium Chloride 0.9% [Normal Saline] 50 ml IV Q24H Gabapentin [Neurontin] Med 10/24/20 09:00 Active 300 mg PO DAILY Glucagon,Human Recombinant [GlucaGen] Med 10/24/20 02:52 Active 1 mg IM ASDIRECTED PRN Insulin Aspart [NovoLOG] Med 10/24/20 07:30 Active See Protocol SUBCUT TIDAC Insulin Glarg,Human.Rec.Analog [LantUS Solostar] Med 10/24/20 22:03 Once 25 units SUBCUT BEDTIME ONE Insulin Isophane NPH, Human [NovoLIN N] Med 10/24/20 21:00 Active 20 unit SUBCUT BID Pantoprazole [ProTONIX] Med 10/24/20 07:30 Active 40 mg PO ACBREAKFAST atorvaSTATin [Lipitor] Med 10/24/20 21:00 Active 20 mg PO BEDTIME lisinopriL [Prinivil] Med 10/25/20 09:00 Active 20 mg PO DAILY Sequential Compression Device [OM.PC] Per Unit Routine Oth 10/24/20 02:50 Ordered Code Status [Resuscitation Status] Routine Resus Stat 10/24/20 08:57 Ordered Medication Orders Acetaminophen (Acetaminophen 325 Mg Tab) 650 mg PO Q4H PRN PRN Reason: Pain (Mild 1-3)/fever Albuterol/Ipratropium (Albuterol/Ipratropium 3.0-0.5 Mg/3 Ml Neb Soln) 3 ml NEB Q4HRRT PRN PRN Reason: Shortness Of Breath/wheezing Atorvastatin Calcium (Atorvastatin 40 Mg Tab) 20 mg PO BEDTIME МАРИНА Dextrose/Water (50% Dextrose In Water 50 Ml Syringe) 50 ml IV ASDIRECTED PRN PRN Reason: Hypoglycemia Dextrose/Water (50% Dextrose In Water 50 Ml Syringe) 50 ml IV ASDIRECTED PRN PRN Reason: Hypoglycemia Duloxetine HCl (Duloxetine 30 Mg Cap) 30 mg PO DAILY МАРИНА Last Admin: 10/24/20 08:41 Dose: 30 mg Documented by: SEMIC Enoxaparin Sodium (Enoxaparin 40 Mg/0.4 Ml Syringe) 40 mg SUBCUT Q24H [facility] Last Admin: 10/24/20 03:48 Dose: 40 mg Documented by: MATEO Gabapentin (Gabapentin 300 Mg Cap) 300 mg PO DAILY [facility] Last Admin: 10/24/20 08:41 Dose: 300 mg Documented by: EMMA Glucagon (Glucagon,Human Recombinant 1 Mg Vial) 1 mg IM ASDIRECTED PRN PRN Reason: Hypoglycemia Ertapenem 1 gm/ Sodium (Chloride) 50 mls @ 100 mls/hr IV Q24H [facility] Last Admin: 10/24/20 16:52 Dose: 100 mls/hr Documented by: OLIVER Insulin Aspart (Insulin Aspart 100 Units/Ml 3 Ml Pen) 0 unit SUBCUT TIDAC [facility]; Protocol Last Admin: 10/24/20 17:31 Dose: 12 units Documented by: Admin: 10/24/20 12:16 Dose: 9 units Documented by: Admin: 10/24/20 08:08 Dose: Not Given Documented by: EMMA Insulin Glargine (Insulin Glargine,Human Rec. Analog 100 Units/Ml 3 Ml Pen) 25 units SUBCUT BEDTIME ONE Stop: 10/24/20 22:04 Last Admin: 10/24/20 00:07 Dose: 25 units Documented by: JEROME Insulin Human NPH (Insulin Isophane Nph, Human 100 Units/Ml 10 Ml Vial) 20 unit SUBCUT BID [facility] Lisinopril (Lisinopril 10 Mg Tab) 20 mg PO DAILY [facility] Pantoprazole Sodium (Pantoprazole 40 Mg Tab.Cr) 40 mg PO ACBREAKFAST [facility] Last Admin: 10/24/20 06:36 Dose: 40 mg Documented by: GABBIE Assessment/Plan Comment:: I performed a history and physical exam of the patient and discussed management with resident. I have reviewed the residents note and agree with documented findings and plan unless otherwise specified in my note.'
[2020-10-24] MEDS ORDERED: Ertapenem 1 GM in Sodium Chloride 0.9% 50 ML IV SCH (16:00)
[2020-10-24] MEDS ORDERED: Iopamidol 755 MG/ML 500 ML Multipack Bottle IVPUSH STA (16:15)
--- NOTE | 2020-10-24 16:37 | CT ---
INDICATION: Ulcer at the bottom of the foot. TECHNIQUE: 100 mL Isovue-370 IV contrast. COMPARISON: CT 24 August 2020 FINDINGS: Poorly defined lentiform fluid collection plantar margin of the 1st metatarsal head and sesamoids. Diameter is roughly 2.3 cm with peripheral minor enhancement. Depth is estimated at 9 mm. This appears to be deep to these soft tissue ulcer. Increased sclerosis in the sesamoids relative to the other ossicles in the field of view suggests possible chronic osteomyelitis. Indistinct cortical margin of the tibial medial sesamoid with suggestion of some minor periosteal reaction. No evident effusion of the metatarsophalangeal joint. Midfoot joints are unremarkable with no fracture. Os peroneum noted. IMPRESSION : 1. Lentiform abscess under plantar soft tissue defect at the 1st metatarsal head level with probable chronic osteomyelitic changes in the tibial greater than fibular sesamoids. Please note that all CT scans at this facility use dose modulation, iterative reconstruction, and/or weight-based dosing when appropriate to reduce radiation dose to as low as reasonably achievable. Dictated by Alvaro Santamaria MD @ 10/24/2020 4:35:[address] Alvaro Santamaria @ Oct 24 2020 4:35PM
[2020-10-24] MEDS: Ertapenem 1 GM in Sodium Chloride 0.9% 50 ML IV SCH (16:52)
[2020-10-24] MEDS ORDERED: Lisinopril 10 MG Tab PO ONE (19:49)
[2020-10-24] MEDS: atorvaSTATin 40 MG Tab PO SCH (21:28)
[2020-10-24] MEDS: Insulin Isophane NPH, Human 100 Units/ML 10 ML Vial SUBCUT SCH (21:38)
[2020-10-25] MEDS: Enoxaparin 40 MG/0.4 ML Syringe SUBCUT SCH (02:49)
[2020-10-25 06:21] LABS: BLOOD UREA NITROGEN,BUN 14 mg/dL (7.0-18.0); CARBON DIOXIDE,CO2 29.2 mmol/L (21.0-32.0); CHLORIDE,CL 102 mmol/L (98-107); GLUCOSE RANDOM 186 mg/dL (74-106); POTASSIUM,K 3.9 mmol/L (3.5-5.1); SODIUM,NA 138 mmol/L (136-145)
[2020-10-25] MEDS: Pantoprazole 40 MG Tab.CR PO SCH (06:38)
[2020-10-25] MEDS: Insulin Aspart 100 Units/ML 3 ML Pen SUBCUT SCH ×3 (08:00→17:17)
[2020-10-25] MEDS: Insulin Isophane NPH, Human 100 Units/ML 10 ML Vial SUBCUT SCH ×2 (08:01→21:41)
[2020-10-25] MEDS: Gabapentin 300 MG Cap PO SCH (09:47)
[2020-10-25] MEDS: DULoxetine 30 MG Cap PO SCH (09:47)
[2020-10-25] MEDS: Lisinopril 10 MG Tab PO SCH (09:48)
--- NOTE | 2020-10-25 11:42 | PCM.PN ---
- General Info Date of Service: 10/25/20 Subjective Update: Bedside: no new or acute complaints this AM Functional Status: Reports: Pain Controlled - Review of Systems General: Reports: No Symptoms Pulmonary: Reports: No Symptoms Cardiovascular: Reports: No Symptoms Gastrointestinal: Reports: No Symptoms Genitourinary: Reports: No Symptoms Neurological: Reports: Pre-Existing Deficit - Patient Data Vitals - Most Recent: Last Vital Signs Temp 97.2 F 10/25/20 07:30 Pulse 82 10/25/20 07:30 Resp 17 10/25/20 07:30 BP 120/61 10/25/20 09:48 Pulse Ox 94 L 10/25/20 07:30 Weight - Most Recent: 104.871 kg I&O - Last 24 Hours: Intake & Output 10/24/20 10/25/20 10/25/20 22:59 06:59 14:59 Intake Total 1280 600 Output Total 1125 2200 Balance 155 -1600 Lab Results Last 24 Hours: Laboratory Results - last 24 hr 10/24/20 10/24/20 10/24/20 Range/Units 11:49 17:28 19:18 WBC (4.0-11.0) K/uL RBC (4.30-5.90) M/uL Hgb (12.0-16.0) g/dL Hct (36.0-46.0) % MCV (80.0-98.0) fL MCH (27.0-32.0) pg MCHC (31.0-37.0) g/dL RDW Std Deviation (28.0-62.0) fl RDW Coeff of Olimpia (11.0-15.0) % Plt Count (150-400) K/uL MPV (7.40-12.00) fL Neut % (Auto) (48.0-80.0) % Lymph % (Auto) (16.0-40.0) % Kendall % (Auto) (0.0-15.0) % Eos % (Auto) (0.0-7.0) % Baso % (Auto) (0.0-1.5) % Neut # (Auto) (1.4-5.7) K/uL Lymph # (Auto) (0.6-2.4) K/uL Kendall # (Auto) (0.0-0.8) K/uL Eos # (Auto) (0.0-0.7) K/uL Baso # (Auto) (0.0-0.1) K/uL Nucleated RBC % /100WBC Nucleated RBCs # K/uL Sodium (136-145) mmol/L Potassium (3.5-5.1) mmol/L Chloride (98-107) mmol/L Carbon Dioxide (21.0-32.0) mmol/L BUN (7.0-18.0) mg/dL Creatinine (0.6-1.0) mg/dL Est Cr Clr Drug Dosing mL/min Estimated GFR (MDRD) ml/min Glucose (74-106) mg/dL POC Glucose 274 H 325 H 327 H (70-99) mg/dL Calcium (8.5-10.1) mg/dL Total Bilirubin (0.2-1.0) mg/dL AST (15-37) IU/L ALT (14-63) IU/L Alkaline Phosphatase (46-116) U/L Total Protein (6.4-8.2) g/dL Albumin (3.4-5.0) g/dL Globulin (2.6-4.0) g/dL Albumin/Globulin Ratio (0.9-1.6) 10/24/20 10/25/20 10/25/20 Range/Units 21:27 05:20 05:20 WBC 5.91 (4.0-11.0) K/uL RBC 4.22 L (4.30-5.90) M/uL Hgb 13.0 (12.0-16.0) g/dL Hct 38.4 (36.0-46.0) % MCV 91.0 (80.0-98.0) fL MCH 30.8 (27.0-32.0) pg MCHC 33.9 (31.0-37.0) g/dL RDW Std Deviation 40.8 (28.0-62.0) fl RDW Coeff of Olimpia 12 (11.0-15.0) % Plt Count 313 (150-400) K/uL MPV 11.00 (7.40-12.00) fL Neut % (Auto) 46.9 L (48.0-80.0) % Lymph % (Auto) 34.7 (16.0-40.0) % Kendall % (Auto) 11.3 (0.0-15.0) % Eos % (Auto) 6.4 (0.0-7.0) % Baso % (Auto) 0.7 (0.0-1.5) % Neut # (Auto) 2.8 (1.4-5.7) K/uL Lymph # (Auto) 2.1 (0.6-2.4) K/uL Kendall # (Auto) 0.7 (0.0-0.8) K/uL Eos # (Auto) 0.4 (0.0-0.7) K/uL Baso # (Auto) 0.0 (0.0-0.1) K/uL Nucleated RBC % 0.0 /100WBC Nucleated RBCs # 0 K/uL Sodium 138 (136-145) mmol/L Potassium 3.9 (3.5-5.1) mmol/L Chloride 102 (98-107) mmol/L Carbon Dioxide 29.2 (21.0-32.0) mmol/L BUN 14 (7.0-18.0) mg/dL Creatinine 0.8 (0.6-1.0) mg/dL Est Cr Clr Drug Dosing 70.54 mL/min Estimated GFR (MDRD) > 60.0 ml/min Glucose 186 H (74-106) mg/dL POC Glucose 284 H (70-99) mg/dL Calcium 8.8 (8.5-10.1) mg/dL Total Bilirubin 0.3 (0.2-1.0) mg/dL AST 25 (15-37) IU/L ALT 30 (14-63) IU/L Alkaline Phosphatase 71 (46-116) U/L Total Protein 6.9 (6.4-8.2) g/dL Albumin 2.7 L (3.4-5.0) g/dL Globulin 4.2 H (2.6-4.0) g/dL Albumin/Globulin Ratio 0.6 L (0.9-1.6) // Range/Units 06:36 WBC (4.0-11.0) K/uL RBC (4.30-5.90) M/uL Hgb (12.0-16.0) g/dL Hct (36.0-46.0) % MCV (80.0-98.0) fL MCH (27.0-32.0) pg MCHC (31.0-37.0) g/dL RDW Std Deviation (28.0-62.0) fl RDW Coeff of Olimpia (11.0-15.0) % Plt Count (150-400) K/uL MPV (7.40-12.00) fL Neut % (Auto) (48.0-80.0) % Lymph % (Auto) (16.0-40.0) % Kendall % (Auto) (0.0-15.0) % Eos % (Auto) (0.0-7.0) % Baso % (Auto) (0.0-1.5) % Neut # (Auto) (1.4-5.7) K/uL Lymph # (Auto) (0.6-2.4) K/uL Kendall # (Auto) (0.0-0.8) K/uL Eos # (Auto) (0.0-0.7) K/uL Baso # (Auto) (0.0-0.1) K/uL Nucleated RBC % /100WBC Nucleated RBCs # K/uL Sodium (136-145) mmol/L Potassium (3.5-5.1) mmol/L Chloride (98-107) mmol/L Carbon Dioxide (21.0-32.0) mmol/L BUN (7.0-18.0) mg/dL Creatinine (0.6-1.0) mg/dL Est Cr Clr Drug Dosing mL/min Estimated GFR (MDRD) ml/min Glucose (74-106) mg/dL POC Glucose 160 H (70-99) mg/dL Calcium (8.5-10.1) mg/dL Total Bilirubin (0.2-1.0) mg/dL AST (15-37) IU/L ALT (14-63) IU/L Alkaline Phosphatase (46-116) U/L Total Protein (6.4-8.2) g/dL Albumin (3.4-5.0) g/dL Globulin (2.6-4.0) g/dL Albumin/Globulin Ratio (0.9-1.6) Kofi Results Last 24 Hours: Microbiology 10/23/20 15:39 Aerobic Blood Culture - Preliminary Blood - Venous - Lab Draw NO GROWTH AFTER 1 DAY Anaerobic Blood Culture - Preliminary NO GROWTH AFTER 1 DAY 10/23/20 15:25 Aerobic Blood Culture - Preliminary Blood - Venous NO GROWTH AFTER 1 DAY Anaerobic Blood Culture - Preliminary NO GROWTH AFTER 1 DAY Med Orders - Current: Current Medications Acetaminophen (Acetaminophen 325 Mg Tab) 650 mg PO Q4H PRN PRN Reason: Pain (Mild 1-3)/fever Last Admin: 10/24/20 19:58 Dose: 650 mg Documented by: Albuterol/Ipratropium (Albuterol/Ipratropium 3.0-0.5 Mg/3 Ml Neb Soln) 3 ml NEB Q4HRRT PRN PRN Reason: Shortness Of Breath/wheezing Atorvastatin Calcium (Atorvastatin 40 Mg Tab) 20 mg PO BEDTIME [facility] Last Admin: 10/24/20 21:28 Dose: 20 mg Documented by: Dextrose/Water (50% Dextrose In Water 50 Ml Syringe) 50 ml IV ASDIRECTED PRN PRN Reason: Hypoglycemia Dextrose/Water (50% Dextrose In Water 50 Ml Syringe) 50 ml IV ASDIRECTED PRN PRN Reason: Hypoglycemia Duloxetine HCl (Duloxetine 30 Mg Cap) 30 mg PO DAILY [facility] Last Admin: 10/25/20 09:47 Dose: 30 mg Documented by: Enoxaparin Sodium (Enoxaparin 40 Mg/0.4 Ml Syringe) 40 mg SUBCUT Q24H [facility] Last Admin: 10/25/20 02:49 Dose: 40 mg Documented by: Gabapentin (Gabapentin 300 Mg Cap) 300 mg PO DAILY [facility] Last Admin: 10/25/20 09:47 Dose: 300 mg Documented by: Glucagon (Glucagon,Human Recombinant 1 Mg Vial) 1 mg IM ASDIRECTED PRN PRN Reason: Hypoglycemia Ertapenem 1 gm/ Sodium (Chloride) 50 mls @ 100 mls/hr IV Q24H [facility] Last Admin: 10/24/20 16:52 Dose: 100 mls/hr Documented by: Insulin Aspart (Insulin Aspart 100 Units/Ml 3 Ml Pen) 0 unit SUBCUT TIDAC [facility]; Protocol Last Admin: 10/25/20 08:00 Dose: 3 units Documented by: Insulin Human NPH (Insulin Isophane Nph, Human 100 Units/Ml 10 Ml Vial) 20 unit SUBCUT BID [facility] Last Admin: 10/25/20 08:01 Dose: 20 units Documented by: Lisinopril (Lisinopril 10 Mg Tab) 20 mg PO DAILY [facility] Last Admin: 10/25/20 09:48 Dose: 20 mg Documented by: Pantoprazole Sodium (Pantoprazole 40 Mg Tab.Cr) 40 mg PO ACBREAKFAST [facility] Last Admin: 10/25/20 06:38 Dose: 40 mg Documented by: Discontinued Medications Dextrose/Water (50% Dextrose In Water 50 Ml Syringe) 50 ml IV ASDIRECTED PRN PRN Reason: Hypoglycemia Dextrose/Water (50% Dextrose In Water 50 Ml Syringe) 50 ml IV ASDIRECTED PRN PRN Reason: Hypoglycemia Ertapenem (Ertapenem 1 Gm Vial) Confirm Administered Dose 1 gm .ROUTE .STK-MED ONE Stop: 10/23/20 16:05 Last Admin: 10/23/20 16:25 Dose: Not Given Documented by: Glucagon (Glucagon,Human Recombinant 1 Mg Vial) 1 mg IM ASDIRECTED PRN PRN Reason: Hypoglycemia Glucagon (Glucagon,Human Recombinant 1 Mg Vial) 1 mg IM ASDIRECTED PRN PRN Reason: Hypoglycemia Glucagon (Glucagon,Human Recombinant 1 Mg Vial) 1 mg IM ASDIRECTED PRN PRN Reason: Hypoglycemia Sodium Chloride (Normal Saline) 1,000 mls @ 999 mls/hr IV .BOLUS ONE Stop: 10/23/20 16:11 Last Admin: 10/23/20 15:42 Dose: 999 mls/hr Documented by: Vancomycin HCl 2 gm/ Premix 400 mls @ 200 mls/hr IV STAT ONE Stop: 10/23/20 17:13 Last Admin: 10/23/20 16:21 Dose: Not Given Documented by: Ertapenem 1 gm/ Sodium (Chloride) 50 mls @ 100 mls/hr IV ONETIME ONE Stop: 10/23/20 16:18 Last Admin: 10/23/20 16:22 Dose: 100 mls/hr Documented by: Sodium Chloride (Normal Saline) Confirm Administered Dose 50 mls @ as directed .ROUTE .STK-MED ONE Stop: 10/23/20 16:06 Last Admin: 10/23/20 16:25 Dose: Not Given Documented by: Sodium Chloride (Normal Saline) 1,000 mls @ 999 mls/hr IV .BOLUS ONE Stop: 10/23/20 17:26 Last Admin: 10/23/20 17:13 Dose: 999 mls/hr Documented by: Ertapenem 1 gm/ Sodium (Chloride) 50 mls @ 100 mls/hr IV Q24H [facility] Insulin Glargine (Insulin Glargine,Human Rec. Analog 100 Units/Ml 3 Ml Pen) 25 units SUBCUT BEDTIME ONE Stop: 10/24/20 22:04 Last Admin: 10/24/20 21:32 Dose: 25 units Documented by: Insulin Glargine (Insulin Glargine,Human Rec. Analog 100 Units/Ml 3 Ml Pen) Confirm Administered Dose 300 units .ROUTE .STK-MED ONE Stop: 10/23/20 23:22 Last Admin: 10/24/20 00:13 Dose: Not Given Documented by: Insulin Human Regular (Insulin Regular, Human 100 Units/Ml 10 Ml Vial) 25 unit SUBCUT ONETIME ONE; Protocol Stop: 10/23/20 17:50 Last Admin: 10/23/20 18:00 Dose: 25 unit Documented by: Insulin Human Regular (Insulin Regular, Human 100 Units/Ml 10 Ml Vial) 25 unit SUBCUT ONETIME ONE; Protocol Stop: 10/23/20 20:36 Last Admin: 10/23/20 21:55 Dose: Not Given Documented by: Insulin Human Regular (Insulin Regular, Human 100 Units/Ml 10 Ml Vial) 23 unit SUBCUT ONETIME ONE; Protocol Stop: 10/23/20 20:47 Last Admin: 10/23/20 21:24 Dose: 23 units Documented by: Iopamidol (Iopamidol 755 Mg/Ml 500 Ml Multipack Bottle) 100 ml IVPUSH ONETIME STA Stop: 10/24/20 16:16 Last Admin: 10/24/20 16:16 Dose: 100 ml Documented by: Lisinopril (Lisinopril 10 Mg Tab) 20 mg PO ONETIME ONE Stop: 10/24/20 19:50 Last Admin: 10/24/20 19:57 Dose: 20 mg Documented by: Ondansetron HCl (Ondansetron 4 Mg/2 Ml Sdv) 4 mg IVPUSH ONETIME ONE Stop: 10/23/20 16:01 Last Admin: 10/23/20 16:21 Dose: 4 mg Documented by: - Exam General: Alert, Oriented HEENT: EOMI Lungs: Clear to Auscultation, Normal Respiratory Effort Cardiovascular: Regular Rate, Regular Rhythm GI/Abdominal Exam: Soft Extremities: Other (wound over plantar aspect of both feet unchanged from yesterday; simialr drainge color and amouint noted ) - Patient Data Lab Results Last 24 hrs: Laboratory Results - last 24 hr 10/24/20 10/24/20 10/24/20 Range/Units 11:49 17:28 19:18 WBC (4.0-11.0) K/uL RBC (4.30-5.90) M/uL Hgb (12.0-16.0) g/dL Hct (36.0-46.0) % MCV (80.0-98.0) fL MCH (27.0-32.0) pg MCHC (31.0-37.0) g/dL RDW Std Deviation (28.0-62.0) fl RDW Coeff of Olimpia (11.0-15.0) % Plt Count (150-400) K/uL MPV (7.40-12.00) fL Neut % (Auto) (48.0-80.0) % Lymph % (Auto) (16.0-40.0) % Kendall % (Auto) (0.0-15.0) % Eos % (Auto) (0.0-7.0) % Baso % (Auto) (0.0-1.5) % Neut # (Auto) (1.4-5.7) K/uL Lymph # (Auto) (0.6-2.4) K/uL Kendall # (Auto) (0.0-0.8) K/uL Eos # (Auto) (0.0-0.7) K/uL Baso # (Auto) (0.0-0.1) K/uL Nucleated RBC % /100WBC Nucleated RBCs # K/uL Sodium (136-145) mmol/L Potassium (3.5-5.1) mmol/L Chloride (98-107) mmol/L Carbon Dioxide (21.0-32.0) mmol/L BUN (7.0-18.0) mg/dL Creatinine (0.6-1.0) mg/dL Est Cr Clr Drug Dosing mL/min Estimated GFR (MDRD) ml/min Glucose (74-106) mg/dL POC Glucose 274 H 325 H 327 H (70-99) mg/dL Calcium (8.5-10.1) mg/dL Total Bilirubin (0.2-1.0) mg/dL AST (15-37) IU/L ALT (14-63) IU/L Alkaline Phosphatase (46-116) U/L Total Protein (6.4-8.2) g/dL Albumin (3.4-5.0) g/dL Globulin (2.6-4.0) g/dL Albumin/Globulin Ratio (0.9-1.6) 10/24/20 10/25/20 10/25/20 Range/Units 21:27 05:20 05:20 WBC 5.91 (4.0-11.0) K/uL RBC 4.22 L (4.30-5.90) M/uL Hgb 13.0 (12.0-16.0) g/dL Hct 38.4 (36.0-46.0) % MCV 91.0 (80.0-98.0) fL MCH 30.8 (27.0-32.0) pg MCHC 33.9 (31.0-37.0) g/dL RDW Std Deviation 40.8 (28.0-62.0) fl RDW Coeff of Olimpia 12 (11.0-15.0) % Plt Count 313 (150-400) K/uL MPV 11.00 (7.40-12.00) fL Neut % (Auto) 46.9 L (48.0-80.0) % Lymph % (Auto) 34.7 (16.0-40.0) % Kendall % (Auto) 11.3 (0.0-15.0) % Eos % (Auto) 6.4 (0.0-7.0) % Baso % (Auto) 0.7 (0.0-1.5) % Neut # (Auto) 2.8 (1.4-5.7) K/uL Lymph # (Auto) 2.1 (0.6-2.4) K/uL Kendall # (Auto) 0.7 (0.0-0.8) K/uL Eos # (Auto) 0.4 (0.0-0.7) K/uL Baso # (Auto) 0.0 (0.0-0.1) K/uL Nucleated RBC % 0.0 /100WBC Nucleated RBCs # 0 K/uL Sodium 138 (136-145) mmol/L Potassium 3.9 (3.5-5.1) mmol/L Chloride 102 (98-107) mmol/L Carbon Dioxide 29.2 (21.0-32.0) mmol/L BUN 14 (7.0-18.0) mg/dL Creatinine 0.8 (0.6-1.0) mg/dL Est Cr Clr Drug Dosing 70.54 mL/min Estimated GFR (MDRD) > 60.0 ml/min Glucose 186 H (74-106) mg/dL POC Glucose 284 H (70-99) mg/dL Calcium 8.8 (8.5-10.1) mg/dL Total Bilirubin 0.3 (0.2-1.0) mg/dL AST 25 (15-37) IU/L ALT 30 (14-63) IU/L Alkaline Phosphatase 71 (46-116) U/L Total Protein 6.9 (6.4-8.2) g/dL Albumin 2.7 L (3.4-5.0) g/dL Globulin 4.2 H (2.6-4.0) g/dL Albumin/Globulin Ratio 0.6 L (0.9-1.6) 10/25/ Range/Units 06:36 WBC (4.0-11.0) K/uL RBC (4.30-5.90) M/uL Hgb (12.0-16.0) g/dL Hct (36.0-46.0) % MCV (80.0-98.0) fL MCH (27.0-32.0) pg MCHC (31.0-37.0) g/dL RDW Std Deviation (28.0-62.0) fl RDW Coeff of Olimpia (11.0-15.0) % Plt Count (150-400) K/uL MPV (7.40-12.00) fL Neut % (Auto) (48.0-80.0) % Lymph % (Auto) (16.0-40.0) % Kendall % (Auto) (0.0-15.0) % Eos % (Auto) (0.0-7.0) % Baso % (Auto) (0.0-1.5) % Neut # (Auto) (1.4-5.7) K/uL Lymph # (Auto) (0.6-2.4) K/uL Kendall # (Auto) (0.0-0.8) K/uL Eos # (Auto) (0.0-0.7) K/uL Baso # (Auto) (0.0-0.1) K/uL Nucleated RBC % /100WBC Nucleated RBCs # K/uL Sodium (136-145) mmol/L Potassium (3.5-5.1) mmol/L Chloride (98-107) mmol/L Carbon Dioxide (21.0-32.0) mmol/L BUN (7.0-18.0) mg/dL Creatinine (0.6-1.0) mg/dL Est Cr Clr Drug Dosing mL/min Estimated GFR (MDRD) ml/min Glucose (74-106) mg/dL POC Glucose 160 H (70-99) mg/dL Calcium (8.5-10.1) mg/dL Total Bilirubin (0.2-1.0) mg/dL AST (15-37) IU/L ALT (14-63) IU/L Alkaline Phosphatase (46-116) U/L Total Protein (6.4-8.2) g/dL Albumin (3.4-5.0) g/dL Globulin (2.6-4.0) g/dL Albumin/Globulin Ratio (0.9-1.6) Result Diagrams: 10/25/20 05:20 10/25/20 05:20 Kofi Results Last 24 hrs: Microbiology 10/23/20 15:39 Aerobic Blood Culture - Preliminary Blood - Venous - Lab Draw NO GROWTH AFTER 1 DAY Anaerobic Blood Culture - Preliminary NO GROWTH AFTER 1 DAY 10/23/20 15:25 Aerobic Blood Culture - Preliminary Blood - Venous NO GROWTH AFTER 1 DAY Anaerobic Blood Culture - Preliminary NO GROWTH AFTER 1 DAY Sepsis Event Note - Evaluation Sepsis Screening Result: No Definite Risk - Focused Exam Vital Signs: Vital Signs Temp Pulse Resp BP BP Pulse Ox 10/25/20 09:48 120/61 10/25/20 07:30 97.2 F 82 17 120/61 94 L 10/25/20 04:00 97.3 F 80 18 100/61 94 L 10/25/20 00:48 97.5 F 84 18 123/62 93 L - Problem List & Annotations (1) Cellulitis of foot SNOMED Code(s): 298921176 Code(s): L03.119 - CELLULITIS OF UNSPECIFIED PART OF LIMB Status: Acute Current Visit: Yes (2) Diabetic foot ulcer SNOMED Code(s): 666247590 Code(s): E11.621 - TYPE 2 DIABETES MELLITUS WITH FOOT ULCER; L97.509 - NON- PRESSURE CHRONIC ULCER OTH PRT UNSP FOOT W UNSP SEVERITY Status: Acute Current Visit: No Qualifiers: Diabetes mellitus type: type 2 Laterality: right Non-pressure ulcer stage: with necrosis of muscle (3) Hyperlipemia SNOMED Code(s): 57908170 Code(s): E78.5 - HYPERLIPIDEMIA, UNSPECIFIED Status: Chronic Current Visit: No (4) Hypertension SNOMED Code(s): 06528600 Code(s): I10 - ESSENTIAL (PRIMARY) HYPERTENSION Status: Chronic Current Visit: No (5) Neuropathy SNOMED Code(s): 647305205 Code(s): G62.9 - POLYNEUROPATHY, UNSPECIFIED Status: Chronic Current Visit: No (6) Obesity SNOMED Code(s): 866679537, 744271574 Code(s): E66.9 - OBESITY, UNSPECIFIED Status: Chronic Current Visit: No - Problem List Review Problem List Initiated/Reviewed/Updated: Yes - My Orders Last 24 Hours: My Active Orders 10/24/20 21:00 Insulin Isophane NPH, Human [NovoLIN N] 20 unit SUBCUT BID 10/25/20 09:00 lisinopriL [Prinivil] 20 mg PO DAILY 10/26/20 05:11 CBC WITH AUTO DIFF [HEME] AM COMPREHENSIVE METABOLIC PN,CMP [CHEM] AM 10/27/20 05:11 CBC WITH AUTO DIFF [HEME] AM COMPREHENSIVE METABOLIC PN,CMP [CHEM] AM - Assessment Assessment:: Assessment: 1. Diabetic foot ulcer with possible phlegmon/abscess formation. 2. Cellulitis 3. Hyperglycemia in a type II diabetic 4. Past medical history: Hypertension, hyperlipidemia, diabetic neuropathy, obesity Plan 1. Diabetic foot ulcer with possible phlegmon/abscess formation: Continue ertapenem. Wound cultures ordered for both feet and pending. abscess noted over left foot as well w. chronic osteomyelitic changes ; discussed case w. Dr Phelps of podiatry and will consider I&D bedside or otherwise ; we appreciate his help with this patient official consult placed 2. Hyperglycemia type II diabetic: We will continue home regimen of long-acting plus short acting insulin; patient does have a home regimen of 30 long-acting insulin in a.m./p.m. Diet Diabetic neuropathy: Continue gabapentin. Past medical history: Continue home medication except Metformin - Plan Plan:: I performed a history and physical exam of the patient and discussed management with resident. I have reviewed the residents note and agree with documented findings and plan unless otherwise specified in my note.'
--- NOTE | 2020-10-25 16:06 | PCM.CONS ---
H&P History of Present Illness - General Date of Service: 10/25/20 Admit Problem/Dx: Admission Diagnosis/Problem Admission Diagnosis/Problem Cellulitis - History of Present Illness Onset of Symptoms: Reports: Gradual Duration of Symptoms: Reports: Chronic Location: Reports: Lower Extremity, Left, Lower Extremity, Right Quality: Reports: Pressure Severity: Moderate Worsens with: Reports: None Associated Symptoms: Reports: Fever/Chills (patient reported fever/chills and drainage from right foot ulcer prior to admission and was directed by me to the ER) R foot Pain Score (Numeric/FACES): 1 - Related Data Allergies/Adverse Reactions: Allergies Allergy/AdvReac Type Severity Reaction Status Date / Time No Known Allergies Allergy Verified 10/24/20 01:56 Home Medications: Home Meds Insulin Regular, Human [Novolin R] 20 unit SQ BIDMEALS 08/16/20 [History] Gabapentin [Neurontin] 300 mg PO DAILY 08/24/20 [History] atorvaSTATin [Lipitor] 20 mg PO BEDTIME 08/24/20 [History] lisinopriL [Lisinopril] 20 mg PO DAILY 08/24/20 [History] metFORMIN HCl [Metformin HCl] 500 mg PO BIDMEALS 08/24/20 [History] DULoxetine [Cymbalta] 30 mg PO DAILY 08/26/20 [History] Acetaminophen [Tylenol] 650 mg PO Q4H PRN tablet 09/19/20 [Rx] Insulin Isophane NPH, Human [NovoLIN N] 20 unit SQ BID 10/23/20 [History] Pantoprazole Sodium [Protonix] 40 mg PO DAILY PRN 10/24/20 [History] Past Medical History HEENT History: Reports: Impaired Vision Other HEENT History: patient wears eyeglasses Cardiovascular History: Reports: High Cholesterol, Hypertension Respiratory History: Reports: Bronchitis, Recurrent Gastrointestinal History: Reports: Pancreatitis Genitourinary History: Reports: Other (See Below) Other Genitourinary History: Major Kidney Infections 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: Musculoskeletal History: Reports: Arthritis, Other (See Below) Other Musculoskeletal History: lower back arthritis, R shoulder arthritis' diabetic foot Neurological History: Reports: Neuropathy, Diabetic Psychiatric History: Reports: Depression Endocrine/Metabolic History: Reports: Diabetes, Type II Dermatologic History: Reports: Other (See Below) Other Dermatologic History: diabetic foot - Infectious Disease History Infectious Disease History: Reports: Chicken Pox, Measles - Past Surgical History HEENT Surgical History: Reports: None Cardiovascular Surgical History: Reports: None Respiratory Surgical History: Reports: None GI Surgical History: Reports: Cholecystectomy Female Surgical History: Reports: None Endocrine Surgical History: Reports: None Neurological Surgical History: Reports: None Musculoskeletal Surgical History: Reports: Shoulder Surgery Social & Family History - Family History Family Medical History: No Pertinent Family History - Tobacco Use Tobacco Use Status *Q: Never Tobacco User Second Hand Smoke Exposure: No - Caffeine Use Caffeine Use: Reports: Tea Other Caffeine Use: flavored water - Recreational Drug Use Recreational Drug Use: No H&P Review of Systems - Review of Systems: Review Of Systems: Comprehensive ROS is negative, except as noted in HPI. Exam - Exam Exam: See Below - Vital Signs Vital Signs: Last Vital Signs Temp 36.1 C 10/25/20 11:56 Pulse 82 10/25/20 11:56 Resp 17 10/25/20 11:56 BP 106/67 10/25/20 11:56 Pulse Ox 93 L 10/25/20 11:56 Weight: 104.871 kg - Exam Extremities: Pedal Edema (resolving non pitting edema right and left foot about ulcer sites, and within right 2nd toe) Peripheral Pulses: 2+: Posterior Tibial (L), Posterior Tibial (R), Dorsalis Ped is (L), Dorsalis Pedis (R) Physical Exam Comments:: no purulence upon exsanguination of ulcer sites, no drainage at this time on right and minimal serosanguinous drainage on left foot. Ulcer on plantar 1st web space area bilateral feet, and dorsal right 1st web space, swelling and recent history and CT suggest tracking at or close to bone on both feet. - Patient Data Lab Results Last 24 hrs: Laboratory Results - last 24 hr 10/24/20 10/24/20 10/24/20 Range/Units 17:28 19:18 21:27 WBC (4.0-11.0) K/uL RBC (4.30-5.90) M/uL Hgb (12.0-16.0) g/dL Hct (36.0-46.0) % MCV (80.0-98.0) fL MCH (27.0-32.0) pg MCHC (31.0-37.0) g/dL RDW Std Deviation (28.0-62.0) fl RDW Coeff of Olimpia (11.0-15.0) % Plt Count (150-400) K/uL MPV (7.40-12.00) fL Neut % (Auto) (48.0-80.0) % Lymph % (Auto) (16.0-40.0) % Dent % (Auto) (0.0-15.0) % Eos % (Auto) (0.0-7.0) % Baso % (Auto) (0.0-1.5) % Neut # (Auto) (1.4-5.7) K/uL Lymph # (Auto) (0.6-2.4) K/uL Dent # (Auto) (0.0-0.8) K/uL Eos # (Auto) (0.0-0.7) K/uL Baso # (Auto) (0.0-0.1) K/uL Nucleated RBC % /100WBC Nucleated RBCs # K/uL Sodium (136-145) mmol/L Potassium (3.5-5.1) mmol/L Chloride (98-107) mmol/L Carbon Dioxide (21.0-32.0) mmol/L BUN (7.0-18.0) mg/dL Creatinine (0.6-1.0) mg/dL Est Cr Clr Drug Dosing mL/min Estimated GFR (MDRD) ml/min Glucose (74-106) mg/dL POC Glucose 325 H 327 H 284 H (70-99) mg/dL Calcium (8.5-10.1) mg/dL Total Bilirubin (0.2-1.0) mg/dL AST (15-37) IU/L ALT (14-63) IU/L Alkaline Phosphatase (46-116) U/L Total Protein (6.4-8.2) g/dL Albumin (3.4-5.0) g/dL Globulin (2.6-4.0) g/dL Albumin/Globulin Ratio (0.9-1.6) 10/25/20 10/25/20 10/25/20 Range/Units 05:20 05:20 06:36 WBC 5.91 (4.0-11.0) K/uL RBC 4.22 L (4.30-5.90) M/uL Hgb 13.0 (12.0-16.0) g/dL Hct 38.4 (36.0-46.0) % MCV 91.0 (80.0-98.0) fL MCH 30.8 (27.0-32.0) pg MCHC 33.9 (31.0-37.0) g/dL RDW Std Deviation 40.8 (28.0-62.0) fl RDW Coeff of Olimpia 12 (11.0-15.0) % Plt Count 313 (150-400) K/uL MPV 11.00 (7.40-12.00) fL Neut % (Auto) 46.9 L (48.0-80.0) % Lymph % (Auto) 34.7 (16.0-40.0) % Dent % (Auto) 11.3 (0.0-15.0) % Eos % (Auto) 6.4 (0.0-7.0) % Baso % (Auto) 0.7 (0.0-1.5) % Neut # (Auto) 2.8 (1.4-5.7) K/uL Lymph # (Auto) 2.1 (0.6-2.4) K/uL Dent # (Auto) 0.7 (0.0-0.8) K/uL Eos # (Auto) 0.4 (0.0-0.7) K/uL Baso # (Auto) 0.0 (0.0-0.1) K/uL Nucleated RBC % 0.0 /100WBC Nucleated RBCs # 0 K/uL Sodium 138 (136-145) mmol/L Potassium 3.9 (3.5-5.1) mmol/L Chloride 102 (98-107) mmol/L Carbon Dioxide 29.2 (21.0-32.0) mmol/L BUN 14 (7.0-18.0) mg/dL Creatinine 0.8 (0.6-1.0) mg/dL Est Cr Clr Drug Dosing 70.54 mL/min Estimated GFR (MDRD) > 60.0 ml/min Glucose 186 H (74-106) mg/dL POC Glucose 160 H (70-99) mg/dL Calcium 8.8 (8.5-10.1) mg/dL Total Bilirubin 0.3 (0.2-1.0) mg/dL AST 25 (15-37) IU/L ALT 30 (14-63) IU/L Alkaline Phosphatase 71 (46-116) U/L Total Protein 6.9 (6.4-8.2) g/dL Albumin 2.7 L (3.4-5.0) g/dL Globulin 4.2 H (2.6-4.0) g/dL Albumin/Globulin Ratio 0.6 L (0.9-1.6) // Range/Units 11:53 WBC (4.0-11.0) K/uL RBC (4.30-5.90) M/uL Hgb (12.0-16.0) g/dL Hct (36.0-46.0) % MCV (80.0-98.0) fL MCH (27.0-32.0) pg MCHC (31.0-37.0) g/dL RDW Std Deviation (28.0-62.0) fl RDW Coeff of Olimpia (11.0-15.0) % Plt Count (150-400) K/uL MPV (7.40-12.00) fL Neut % (Auto) (48.0-80.0) % Lymph % (Auto) (16.0-40.0) % Dent % (Auto) (0.0-15.0) % Eos % (Auto) (0.0-7.0) % Baso % (Auto) (0.0-1.5) % Neut # (Auto) (1.4-5.7) K/uL Lymph # (Auto) (0.6-2.4) K/uL Dent # (Auto) (0.0-0.8) K/uL Eos # (Auto) (0.0-0.7) K/uL Baso # (Auto) (0.0-0.1) K/uL Nucleated RBC % /100WBC Nucleated RBCs # K/uL Sodium (136-145) mmol/L Potassium (3.5-5.1) mmol/L Chloride (98-107) mmol/L Carbon Dioxide (21.0-32.0) mmol/L BUN (7.0-18.0) mg/dL Creatinine (0.6-1.0) mg/dL Est Cr Clr Drug Dosing mL/min Estimated GFR (MDRD) ml/min Glucose (74-106) mg/dL POC Glucose 297 H (70-99) mg/dL Calcium (8.5-10.1) mg/dL Total Bilirubin (0.2-1.0) mg/dL AST (15-37) IU/L ALT (14-63) IU/L Alkaline Phosphatase (46-116) U/L Total Protein (6.4-8.2) g/dL Albumin (3.4-5.0) g/dL Globulin (2.6-4.0) g/dL Albumin/Globulin Ratio (0.9-1.6) Result Diagrams: 10/25/20 05:20 10/25/20 05:20 Kofi Results Last 24 hrs: Microbiology 10/23/20 15:39 Aerobic Blood Culture - Preliminary Blood - Venous - Lab Draw NO GROWTH AFTER 2 DAYS Anaerobic Blood Culture - Preliminary NO GROWTH AFTER 2 DAYS 10/23/20 15:25 Aerobic Blood Culture - Preliminary Blood - Venous NO GROWTH AFTER 2 DAYS Anaerobic Blood Culture - Preliminary NO GROWTH AFTER 2 DAYS Sepsis Event Note - Evaluation Sepsis Screening Result: No Definite Risk - Focused Exam Vital Signs: Vital Signs Temp Pulse Resp BP BP Pulse Ox 10/25/20 11:56 36.1 C 82 17 106/67 93 L 10/25/20 09:48 120/61 10/25/20 07:30 36.2 C 82 17 120/61 94 L 10/25/20 04:00 36.3 C 80 18 100/61 94 L Consult PN Assessment/Plan Procedures: Procedures ASSAY OF CK (CPK) (08/24/20) ASSAY OF LACTIC ACID (08/24/20) ASSAY OF MAGNESIUM (08/16/20) ASSAY OF PHOSPHORUS (08/16/20) ASSAY OF VANCOMYCIN (08/24/20) BLOOD CULTURE FOR BACTERIA (08/24/20) C-REACTIVE PROTEIN (08/24/20) COMPLETE CBC W/AUTO DIFF WBC (08/24/20) COMPREHEN METABOLIC PANEL (08/24/20) CT LOWER EXTREMITY W/O DYE (08/24/20) EMERGENCY DEPT VISIT (08/24/20) EXTREMITY STUDY (08/16/20) GLUCOSE BLOOD TEST (08/24/20) GLYCOSYLATED HEMOGLOBIN TEST (08/24/20) METABOLIC PANEL TOTAL CA (08/24/20) PT EVAL LOW COMPLEX 20 MIN (08/24/20) RBC SED RATE AUTOMATED (08/24/20) ROUTINE VENIPUNCTURE (08/24/20) SARS-COV-2 COVID-19 AMP PRB (08/24/20) THER/PROPH/DIAG INJ SC/IM (08/24/20) THER/PROPH/DIAG IV INF ADDON (08/24/20) THER/PROPH/DIAG IV INF INIT (09/25/20) TX/PRO/DX INJ SAME DRUG PONDMAN (08/24/20) TX/PROPH/DG ADDL SEQ IV INF (08/24/20) URINALYSIS AUTO W/SCOPE (08/24/20) X-RAY EXAM CHEST 1 VIEW (08/24/20) X-RAY EXAM OF FOOT (08/23/20) (1) Diabetic foot ulcer SNOMED Code(s): 828607335 Code(s): E11.621 - TYPE 2 DIABETES MELLITUS WITH FOOT ULCER; L97.509 - NON- PRESSURE CHRONIC ULCER OTH PRT UNSP FOOT W UNSP SEVERITY Current Visit: No Qualifiers: Diabetes mellitus type: type 2 Laterality: right Non-pressure ulcer stage: with necrosis of muscle Assessment:: both left and right foot ulcers have recent history of tracking at or close to bone. CTs are suggestive of possible chronic osteomyelitis. There does not appear to be a large abscess to drain that would not readily resolve with continued offloading and wound care along with antibiotics. This will be re- assessed at next visit. Problem List Initiated/Reviewed/Updated: Yes Plan: 1. Patient seen at bedside and her progress since admission is discussed. She is clearly better than she was prior to admission 2 nights ago and benefitting from IV antibiotics and non-weight bearing. Additonally, her insulin dosing is clearly better since admission, though hyperglycemia is certainly correlating with her recent breakdown of ulcer sites that had previously been improving. Also, she recently completed her daily infusions of antibiotic prior to ad mission and the lack of antibiotics combined with uncontrolled blood glucose would explain the breakdown she experienced. 2. I applied pressure about all ulcer sites of both feet and found scant drai nage - only the left plantar ulcer expressed any appreciable drainage and purulence was not seen. Dry sterile dressings then applied by nursing to both feet. 3. I discussed with Dr. Arteaga and plan to followup tomorrow evening with patient at bedside. Cultures are pending. Patient has PICC line and will need antibiotics post discharge guided by findings. I&D, possibly bedside, is still possible, depending on whether there is further improvement or lack of it, but there is no abscess of obvious size to drain at this point. I emphasized to patient that without consistent blood sugar control there is no way to heal and remain healed. MRI will be necessary in several weeks to assess for any changes. 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
[2020-10-25] MEDS: Ertapenem 1 GM in Sodium Chloride 0.9% 50 ML IV SCH (17:16)
[2020-10-25] MEDS ORDERED: 50% Dextrose in Water 50 ML Syringe IV PRN (17:54)
[2020-10-25] MEDS ORDERED: Glucagon,Human Recombinant 1 MG Vial IM PRN (17:54)
[2020-10-25] MEDS ORDERED: Insulin Aspart 100 Units/ML 3 ML Pen SUBCUT ONE (17:57)
[2020-10-25] MEDS: atorvaSTATin 40 MG Tab PO SCH (20:13)
[2020-10-26] MEDS: Enoxaparin 40 MG/0.4 ML Syringe SUBCUT SCH (03:44)
[2020-10-26 06:27] LABS: BLOOD UREA NITROGEN,BUN 18 mg/dL (7.0-18.0); CARBON DIOXIDE,CO2 28.9 mmol/L (21.0-32.0); CHLORIDE,CL 102 mmol/L (98-107); GLUCOSE RANDOM 180 mg/dL (74-106); POTASSIUM,K 3.7 mmol/L (3.5-5.1); SODIUM,NA 138 mmol/L (136-145)
[2020-10-26] MEDS: Pantoprazole 40 MG Tab.CR PO SCH (06:54)
[2020-10-26] MEDS: Gabapentin 300 MG Cap PO SCH (08:02)
[2020-10-26] MEDS: Insulin Aspart 100 Units/ML 3 ML Pen SUBCUT SCH ×3 (08:03→18:45)
[2020-10-26] MEDS: Lisinopril 10 MG Tab PO SCH (08:03)
[2020-10-26] MEDS: DULoxetine 30 MG Cap PO SCH (08:03)
[2020-10-26] MEDS: Insulin Isophane NPH, Human 100 Units/ML 10 ML Vial SUBCUT SCH ×2 (08:04→23:04)
--- NOTE | 2020-10-26 09:24 | PCM.PN ---
- General Info Date of Service: 10/26/20 Subjective Update: Bediside: no new acute distress and or complaints. Mentison sensation in her feet is improving w. some more drainage out of the left foot plantar wound Denies any other discomfort at this time. - Review of Systems General: Reports: No Symptoms HEENT: Reports: No Symptoms Cardiovascular: Reports: No Symptoms Gastrointestinal: Reports: No Symptoms Musculoskeletal: Reports: No Symptoms Skin: Reports: Other (wound noted over both feet ; more drainaige out of left plantar wound this AM; sensation and tenderness noted ) Neurological: Reports: Pre-Existing Deficit - Patient Data Vitals - Most Recent: Last Vital Signs Temp 96.7 F L 10/26/20 07:42 Pulse 86 10/26/20 07:42 Resp 16 10/26/20 07:42 BP 133/89 10/26/20 08:03 Pulse Ox 95 10/26/20 07:42 Weight - Most Recent: 104.871 kg I&O - Last 24 Hours: Intake & Output 10/25/20 10/26/20 10/26/20 22:59 06:59 14:59 Intake Total 1050 1000 Output Total 1250 2450 Balance -200 -1450 Lab Results Last 24 Hours: Laboratory Results - last 24 hr 10/25/20 10/25/20 10/25/20 Range/Units 11:53 15:53 17:30 WBC (4.0-11.0) K/uL RBC (4.30-5.90) M/uL Hgb (12.0-16.0) g/dL Hct (36.0-46.0) % MCV (80.0-98.0) fL MCH (27.0-32.0) pg MCHC (31.0-37.0) g/dL RDW Std Deviation (28.0-62.0) fl RDW Coeff of Olimpia (11.0-15.0) % Plt Count (150-400) K/uL MPV (7.40-12.00) fL Neut % (Auto) (48.0-80.0) % Lymph % (Auto) (16.0-40.0) % Roosevelt % (Auto) (0.0-15.0) % Eos % (Auto) (0.0-7.0) % Baso % (Auto) (0.0-1.5) % Neut # (Auto) (1.4-5.7) K/uL Lymph # (Auto) (0.6-2.4) K/uL Roosevelt # (Auto) (0.0-0.8) K/uL Eos # (Auto) (0.0-0.7) K/uL Baso # (Auto) (0.0-0.1) K/uL Nucleated RBC % /100WBC Nucleated RBCs # K/uL Sodium (136-145) mmol/L Potassium (3.5-5.1) mmol/L Chloride (98-107) mmol/L Carbon Dioxide (21.0-32.0) mmol/L BUN (7.0-18.0) mg/dL Creatinine (0.6-1.0) mg/dL Est Cr Clr Drug Dosing mL/min Estimated GFR (MDRD) ml/min Glucose (74-106) mg/dL POC Glucose 297 H 257 H 309 H (70-99) mg/dL Calcium (8.5-10.1) mg/dL Total Bilirubin (0.2-1.0) mg/dL AST (15-37) IU/L ALT (14-63) IU/L Alkaline Phosphatase (46-116) U/L Total Protein (6.4-8.2) g/dL Albumin (3.4-5.0) g/dL Globulin (2.6-4.0) g/dL Albumin/Globulin Ratio (0.9-1.6) 10/25/20 10/26/20 10/26/20 Range/Units 20:45 05:21 05:21 WBC 7.72 (4.0-11.0) K/uL RBC 4.17 L (4.30-5.90) M/uL Hgb 12.7 (12.0-16.0) g/dL Hct 37.9 (36.0-46.0) % MCV 90.9 (80.0-98.0) fL MCH 30.5 (27.0-32.0) pg MCHC 33.5 (31.0-37.0) g/dL RDW Std Deviation 41.0 (28.0-62.0) fl RDW Coeff of Olimpia 12 (11.0-15.0) % Plt Count 314 (150-400) K/uL MPV 10.90 (7.40-12.00) fL Neut % (Auto) 48.0 (48.0-80.0) % Lymph % (Auto) 38.2 (16.0-40.0) % Roosevelt % (Auto) 9.1 (0.0-15.0) % Eos % (Auto) 4.3 (0.0-7.0) % Baso % (Auto) 0.4 (0.0-1.5) % Neut # (Auto) 3.7 (1.4-5.7) K/uL Lymph # (Auto) 3.0 H (0.6-2.4) K/uL Roosevelt # (Auto) 0.7 (0.0-0.8) K/uL Eos # (Auto) 0.3 (0.0-0.7) K/uL Baso # (Auto) 0.0 (0.0-0.1) K/uL Nucleated RBC % 0.0 /100WBC Nucleated RBCs # 0 K/uL Sodium 138 (136-145) mmol/L Potassium 3.7 (3.5-5.1) mmol/L Chloride 102 (98-107) mmol/L Carbon Dioxide 28.9 (21.0-32.0) mmol/L BUN 18 (7.0-18.0) mg/dL Creatinine 0.8 (0.6-1.0) mg/dL Est Cr Clr Drug Dosing 70.54 mL/min Estimated GFR (MDRD) > 60.0 ml/min Glucose 180 H (74-106) mg/dL POC Glucose 276 H (70-99) mg/dL Calcium 9.0 (8.5-10.1) mg/dL Total Bilirubin 0.3 (0.2-1.0) mg/dL AST 26 (15-37) IU/L ALT 37 (14-63) IU/L Alkaline Phosphatase 66 (46-116) U/L Total Protein 6.8 (6.4-8.2) g/dL Albumin 2.7 L (3.4-5.0) g/dL Globulin 4.1 H (2.6-4.0) g/dL Albumin/Globulin Ratio 0.7 L (0.9-1.6) 05/26/21 Range/Units 06:53 WBC (4.0-11.0) K/uL RBC (4.30-5.90) M/uL Hgb (12.0-16.0) g/dL Hct (36.0-46.0) % MCV (80.0-98.0) fL MCH (27.0-32.0) pg MCHC (31.0-37.0) g/dL RDW Std Deviation (28.0-62.0) fl RDW Coeff of Olimpia (11.0-15.0) % Plt Count (150-400) K/uL MPV (7.40-12.00) fL Neut % (Auto) (48.0-80.0) % Lymph % (Auto) (16.0-40.0) % Roosevelt % (Auto) (0.0-15.0) % Eos % (Auto) (0.0-7.0) % Baso % (Auto) (0.0-1.5) % Neut # (Auto) (1.4-5.7) K/uL Lymph # (Auto) (0.6-2.4) K/uL Roosevelt # (Auto) (0.0-0.8) K/uL Eos # (Auto) (0.0-0.7) K/uL Baso # (Auto) (0.0-0.1) K/uL Nucleated RBC % /100WBC Nucleated RBCs # K/uL Sodium (136-145) mmol/L Potassium (3.5-5.1) mmol/L Chloride (98-107) mmol/L Carbon Dioxide (21.0-32.0) mmol/L BUN (7.0-18.0) mg/dL Creatinine (0.6-1.0) mg/dL Est Cr Clr Drug Dosing mL/min Estimated GFR (MDRD) ml/min Glucose (74-106) mg/dL POC Glucose 161 H (70-99) mg/dL Calcium (8.5-10.1) mg/dL Total Bilirubin (0.2-1.0) mg/dL AST (15-37) IU/L ALT (14-63) IU/L Alkaline Phosphatase (46-116) U/L Total Protein (6.4-8.2) g/dL Albumin (3.4-5.0) g/dL Globulin (2.6-4.0) g/dL Albumin/Globulin Ratio (0.9-1.6) Kofi Results Last 24 Hours: Microbiology 10/24/20 12:30 Wound Culture - Final Foot, Right (Mrsa) Staphylococcus Aureus Skin Ronit 10/23/20 15:39 Aerobic Blood Culture - Preliminary Blood - Venous - Lab Draw NO GROWTH AFTER 2 DAYS Anaerobic Blood Culture - Preliminary NO GROWTH AFTER 2 DAYS 10/23/20 15:25 Aerobic Blood Culture - Preliminary Blood - Venous NO GROWTH AFTER 2 DAYS Anaerobic Blood Culture - Preliminary NO GROWTH AFTER 2 DAYS Med Orders - Current: Current Medications Acetaminophen (Acetaminophen 325 Mg Tab) 650 mg PO Q4H PRN PRN Reason: Pain (Mild 1-3)/fever Last Admin: 10/24/20 19:58 Dose: 650 mg Documented by: Albuterol/Ipratropium (Albuterol/Ipratropium 3.0-0.5 Mg/3 Ml Neb Soln) 3 ml NEB Q4HRRT PRN PRN Reason: Shortness Of Breath/wheezing Atorvastatin Calcium (Atorvastatin 20 Mg Tab) 20 mg PO BEDTIME [facility] Dextrose/Water (50% Dextrose In Water 50 Ml Syringe) 50 ml IV ASDIRECTED PRN PRN Reason: Hypoglycemia Dextrose/Water (50% Dextrose In Water 50 Ml Syringe) 50 ml IV ASDIRECTED PRN PRN Reason: Hypoglycemia Duloxetine HCl (Duloxetine 30 Mg Cap) 30 mg PO DAILY [facility] Last Admin: 10/26/20 08:03 Dose: 30 mg Documented by: Enoxaparin Sodium (Enoxaparin 40 Mg/0.4 Ml Syringe) 40 mg SUBCUT Q24H [facility] Last Admin: 10/26/20 03:44 Dose: 40 mg Documented by: Gabapentin (Gabapentin 300 Mg Cap) 300 mg PO DAILY [facility] Last Admin: 10/26/20 08:02 Dose: 300 mg Documented by: Glucagon (Glucagon,Human Recombinant 1 Mg Vial) 1 mg IM ASDIRECTED PRN PRN Reason: Hypoglycemia Ertapenem 1 gm/ Sodium (Chloride) 50 mls @ 100 mls/hr IV Q24H [facility] Last Admin: 10/25/20 17:16 Dose: Not Given Documented by: Insulin Aspart (Insulin Aspart 100 Units/Ml 3 Ml Pen) 0 unit SUBCUT TIDAC [facility]; Protocol Last Admin: 10/26/20 08:03 Dose: 3 units Documented by: Insulin Human NPH (Insulin Isophane Nph, Human 100 Units/Ml 10 Ml Vial) 25 unit SUBCUT BID [facility] Last Admin: 10/26/20 08:04 Dose: 25 unit Documented by: Lisinopril (Lisinopril 10 Mg Tab) 20 mg PO DAILY [facility] Last Admin: 10/26/20 08:03 Dose: 20 mg Documented by: Pantoprazole Sodium (Pantoprazole 40 Mg Tab.Cr) 40 mg PO [facility] Last Admin: 10/26/20 06:54 Dose: 40 mg Documented by: Discontinued Medications Atorvastatin Calcium (Atorvastatin 40 Mg Tab) 20 mg PO BEDTIME [facility] Last Admin: 10/25/20 20:13 Dose: 20 mg Documented by: Dextrose/Water (50% Dextrose In Water 50 Ml Syringe) 50 ml IV ASDIRECTED PRN PRN Reason: Hypoglycemia Dextrose/Water (50% Dextrose In Water 50 Ml Syringe) 50 ml IV ASDIRECTED PRN PRN Reason: Hypoglycemia Ertapenem (Ertapenem 1 Gm Vial) Confirm Administered Dose 1 gm .ROUTE .STK-MED ONE Stop: 10/23/20 16:05 Last Admin: 10/23/20 16:25 Dose: Not Given Documented by: Glucagon (Glucagon,Human Recombinant 1 Mg Vial) 1 mg IM ASDIRECTED PRN PRN Reason: Hypoglycemia Glucagon (Glucagon,Human Recombinant 1 Mg Vial) 1 mg IM ASDIRECTED PRN PRN Reason: Hypoglycemia Glucagon (Glucagon,Human Recombinant 1 Mg Vial) 1 mg IM ASDIRECTED PRN PRN Reason: Hypoglycemia Sodium Chloride (Normal Saline) 1,000 mls @ 999 mls/hr IV .BOLUS ONE Stop: 10/23/20 16:11 Last Admin: 10/23/20 15:42 Dose: 999 mls/hr Documented by: Vancomycin HCl 2 gm/ Premix 400 mls @ 200 mls/hr IV STAT ONE Stop: 10/23/20 17:13 Last Admin: 10/23/20 16:21 Dose: Not Given Documented by: Ertapenem 1 gm/ Sodium (Chloride) 50 mls @ 100 mls/hr IV ONETIME ONE Stop: 10/23/20 16:18 Last Admin: 10/23/20 16:22 Dose: 100 mls/hr Documented by: Sodium Chloride (Normal Saline) Confirm Administered Dose 50 mls @ as directed .ROUTE .STK-MED ONE Stop: 10/23/20 16:06 Last Admin: 10/23/20 16:25 Dose: Not Given Documented by: Sodium Chloride (Normal Saline) 1,000 mls @ 999 mls/hr IV .BOLUS ONE Stop: 10/23/20 17:26 Last Admin: 10/23/20 17:13 Dose: 999 mls/hr Documented by: Ertapenem 1 gm/ Sodium (Chloride) 50 mls @ 100 mls/hr IV Q24H [facility] Insulin Aspart (Insulin Aspart 100 Units/Ml 3 Ml Pen) 5 unit SUBCUT ONETIME ONE Stop: 10/25/20 17:58 Last Admin: 10/25/20 18:04 Dose: 5 units Documented by: Insulin Glargine (Insulin Glargine,Human Rec. Analog 100 Units/Ml 3 Ml Pen) 25 units SUBCUT BEDTIME ONE Stop: 10/24/20 22:04 Last Admin: 10/24/20 21:32 Dose: 25 units Documented by: Insulin Glargine (Insulin Glargine,Human Rec. Analog 100 Units/Ml 3 Ml Pen) Confirm Administered Dose 300 units .ROUTE .STK-MED ONE Stop: 10/23/20 23:22 Last Admin: 10/24/20 00:13 Dose: Not Given Documented by: Insulin Human NPH (Insulin Isophane Nph, Human 100 Units/Ml 10 Ml Vial) 20 unit SUBCUT BID [facility] Last Admin: 10/25/20 08:01 Dose: 20 units Documented by: Insulin Human Regular (Insulin Regular, Human 100 Units/Ml 10 Ml Vial) 25 unit SUBCUT ONETIME ONE; Protocol Stop: 10/23/20 17:50 Last Admin: 10/23/20 18:00 Dose: 25 unit Documented by: Insulin Human Regular (Insulin Regular, Human 100 Units/Ml 10 Ml Vial) 25 unit SUBCUT ONETIME ONE; Protocol Stop: 10/23/20 20:36 Last Admin: 10/23/20 21:55 Dose: Not Given Documented by: Insulin Human Regular (Insulin Regular, Human 100 Units/Ml 10 Ml Vial) 23 unit SUBCUT ONETIME ONE; Protocol Stop: 10/23/20 20:47 Last Admin: 10/23/20 21:24 Dose: 23 units Documented by: Iopamidol (Iopamidol 755 Mg/Ml 500 Ml Multipack Bottle) 100 ml IVPUSH ONETIME STA Stop: 10/24/20 16:16 Last Admin: 10/24/20 16:16 Dose: 100 ml Documented by: Lisinopril (Lisinopril 10 Mg Tab) 20 mg PO ONETIME ONE Stop: 10/24/20 19:50 Last Admin: 10/24/20 19:57 Dose: 20 mg Documented by: Ondansetron HCl (Ondansetron 4 Mg/2 Ml Sdv) 4 mg IVPUSH ONETIME ONE Stop: 10/23/20 16:01 Last Admin: 10/23/20 16:21 Dose: 4 mg Documented by: - Exam Quality Assessment: Supplemental Oxygen General: Alert, Oriented HEENT: Pupils Equal, EOMI Lungs: Clear to Auscultation, Normal Respiratory Effort GI/Abdominal Exam: Soft, Non-Tender Extremities: Normal Inspection Skin: Other (left plantar wound: puntate wound ; increased serosanguineous draineage this AM; tenderness noted ) Wound/Incisions: Drainage. No: Dressing Dry and Intact Psy/Mental Status: Alert, Normal Affect, Normal Mood - Patient Data Lab Results Last 24 hrs: Laboratory Results - last 24 hr 10/25/20 10/25/20 10/25/20 Range/Units 11:53 15:53 17:30 WBC (4.0-11.0) K/uL RBC (4.30-5.90) M/uL Hgb (12.0-16.0) g/dL Hct (36.0-46.0) % MCV (80.0-98.0) fL MCH (27.0-32.0) pg MCHC (31.0-37.0) g/dL RDW Std Deviation (28.0-62.0) fl RDW Coeff of Olimpia (11.0-15.0) % Plt Count (150-400) K/uL MPV (7.40-12.00) fL Neut % (Auto) (48.0-80.0) % Lymph % (Auto) (16.0-40.0) % Roosevelt % (Auto) (0.0-15.0) % Eos % (Auto) (0.0-7.0) % Baso % (Auto) (0.0-1.5) % Neut # (Auto) (1.4-5.7) K/uL Lymph # (Auto) (0.6-2.4) K/uL Roosevelt # (Auto) (0.0-0.8) K/uL Eos # (Auto) (0.0-0.7) K/uL Baso # (Auto) (0.0-0.1) K/uL Nucleated RBC % /100WBC Nucleated RBCs # K/uL Sodium (136-145) mmol/L Potassium (3.5-5.1) mmol/L Chloride (98-107) mmol/L Carbon Dioxide (21.0-32.0) mmol/L BUN (7.0-18.0) mg/dL Creatinine (0.6-1.0) mg/dL Est Cr Clr Drug Dosing mL/min Estimated GFR (MDRD) ml/min Glucose (74-106) mg/dL POC Glucose 297 H 257 H 309 H (70-99) mg/dL Calcium (8.5-10.1) mg/dL Total Bilirubin (0.2-1.0) mg/dL AST (15-37) IU/L ALT (14-63) IU/L Alkaline Phosphatase (46-116) U/L Total Protein (6.4-8.2) g/dL Albumin (3.4-5.0) g/dL Globulin (2.6-4.0) g/dL Albumin/Globulin Ratio (0.9-1.6) 10/25/20 10/26/20 10/26/20 Range/Units 20:45 05:21 05:21 WBC 7.72 (4.0-11.0) K/uL RBC 4.17 L (4.30-5.90) M/uL Hgb 12.7 (12.0-16.0) g/dL Hct 37.9 (36.0-46.0) % MCV 90.9 (80.0-98.0) fL MCH 30.5 (27.0-32.0) pg MCHC 33.5 (31.0-37.0) g/dL RDW Std Deviation 41.0 (28.0-62.0) fl RDW Coeff of Olimpia 12 (11.0-15.0) % Plt Count 314 (150-400) K/uL MPV 10.90 (7.40-12.00) fL Neut % (Auto) 48.0 (48.0-80.0) % Lymph % (Auto) 38.2 (16.0-40.0) % Roosevelt % (Auto) 9.1 (0.0-15.0) % Eos % (Auto) 4.3 (0.0-7.0) % Baso % (Auto) 0.4 (0.0-1.5) % Neut # (Auto) 3.7 (1.4-5.7) K/uL Lymph # (Auto) 3.0 H (0.6-2.4) K/uL Roosevelt # (Auto) 0.7 (0.0-0.8) K/uL Eos # (Auto) 0.3 (0.0-0.7) K/uL Baso # (Auto) 0.0 (0.0-0.1) K/uL Nucleated RBC % 0.0 /100WBC Nucleated RBCs # 0 K/uL Sodium 138 (136-145) mmol/L Potassium 3.7 (3.5-5.1) mmol/L Chloride 102 (98-107) mmol/L Carbon Dioxide 28.9 (21.0-32.0) mmol/L BUN 18 (7.0-18.0) mg/dL Creatinine 0.8 (0.6-1.0) mg/dL Est Cr Clr Drug Dosing 70.54 mL/min Estimated GFR (MDRD) > 60.0 ml/min Glucose 180 H (74-106) mg/dL POC Glucose 276 H (70-99) mg/dL Calcium 9.0 (8.5-10.1) mg/dL Total Bilirubin 0.3 (0.2-1.0) mg/dL AST 26 (15-37) IU/L ALT 37 (14-63) IU/L Alkaline Phosphatase 66 (46-116) U/L Total Protein 6.8 (6.4-8.2) g/dL Albumin 2.7 L (3.4-5.0) g/dL Globulin 4.1 H (2.6-4.0) g/dL Albumin/Globulin Ratio 0.7 L (0.9-1.6) 10/26/20 Range/Units 06:53 WBC (4.0-11.0) K/uL RBC (4.30-5.90) M/uL Hgb (12.0-16.0) g/dL Hct (36.0-46.0) % MCV (80.0-98.0) fL MCH (27.0-32.0) pg MCHC (31.0-37.0) g/dL RDW Std Deviation (28.0-62.0) fl RDW Coeff of Olimpia (11.0-15.0) % Plt Count (150-400) K/uL MPV (7.40-12.00) fL Neut % (Auto) (48.0-80.0) % Lymph % (Auto) (16.0-40.0) % Roosevelt % (Auto) (0.0-15.0) % Eos % (Auto) (0.0-7.0) % Baso % (Auto) (0.0-1.5) % Neut # (Auto) (1.4-5.7) K/uL Lymph # (Auto) (0.6-2.4) K/uL Roosevelt # (Auto) (0.0-0.8) K/uL Eos # (Auto) (0.0-0.7) K/uL Baso # (Auto) (0.0-0.1) K/uL Nucleated RBC % /100WBC Nucleated RBCs # K/uL Sodium (136-145) mmol/L Potassium (3.5-5.1) mmol/L Chloride (98-107) mmol/L Carbon Dioxide (21.0-32.0) mmol/L BUN (7.0-18.0) mg/dL Creatinine (0.6-1.0) mg/dL Est Cr Clr Drug Dosing mL/min Estimated GFR (MDRD) ml/min Glucose (74-106) mg/dL POC Glucose 161 H (70-99) mg/dL Calcium (8.5-10.1) mg/dL Total Bilirubin (0.2-1.0) mg/dL AST (15-37) IU/L ALT (14-63) IU/L Alkaline Phosphatase (46-116) U/L Total Protein (6.4-8.2) g/dL Albumin (3.4-5.0) g/dL Globulin (2.6-4.0) g/dL Albumin/Globulin Ratio (0.9-1.6) Result Diagrams: 10/26/20 05:21 10/26/20 05:21 Kofi Results Last 24 hrs: Microbiology 10/24/20 12:30 Wound Culture - Final Foot, Right (Mrsa) Staphylococcus Aureus Skin Ronit 10/23/20 15:39 Aerobic Blood Culture - Preliminary Blood - Venous - Lab Draw NO GROWTH AFTER 2 DAYS Anaerobic Blood Culture - Preliminary NO GROWTH AFTER 2 DAYS 10/23/20 15:25 Aerobic Blood Culture - Preliminary Blood - Venous NO GROWTH AFTER 2 DAYS Anaerobic Blood Culture - Preliminary NO GROWTH AFTER 2 DAYS Sepsis Event Note - Evaluation Sepsis Screening Result: No Definite Risk - Focused Exam Vital Signs: Vital Signs Temp Pulse Resp BP BP BP Pulse Ox 10/26/20 08:03 133/89 10/26/20 07:42 96.7 F L 86 16 133/89 95 10/26/20 03:45 97.8 F 91 18 125/68 93 L 10/26/20 00:00 97.6 F 83 18 110/53 L 96 - Problem List & Annotations (1) Cellulitis of foot SNOMED Code(s): 804200395 Code(s): L03.119 - CELLULITIS OF UNSPECIFIED PART OF LIMB Status: Acute Current Visit: Yes (2) Diabetic foot ulcer SNOMED Code(s): 432211352 Code(s): E11.621 - TYPE 2 DIABETES MELLITUS WITH FOOT ULCER; L97.509 - NON- PRESSURE CHRONIC ULCER OTH PRT UNSP FOOT W UNSP SEVERITY Status: Acute Current Visit: No Qualifiers: Diabetes mellitus type: type 2 Laterality: right Non-pressure ulcer stage: with necrosis of muscle (3) Hyperlipemia SNOMED Code(s): 20064042 Code(s): E78.5 - HYPERLIPIDEMIA, UNSPECIFIED Status: Chronic Current Visit: No (4) Hypertension SNOMED Code(s): 47018176 Code(s): I10 - ESSENTIAL (PRIMARY) HYPERTENSION Status: Chronic Current Visit: No (5) Neuropathy SNOMED Code(s): 172391216 Code(s): G62.9 - POLYNEUROPATHY, UNSPECIFIED Status: Chronic Current Visit: No (6) Obesity SNOMED Code(s): 973585350, 133165268 Code(s): E66.9 - OBESITY, UNSPECIFIED Status: Chronic Current Visit: No - Problem List Review Problem List Initiated/Reviewed/Updated: Yes - My Orders Last 24 Hours: My Active Orders 10/25/20 09:00 lisinopriL [Prinivil] 20 mg PO DAILY 10/25/20 21:00 Insulin Isophane NPH, Human [NovoLIN N] 25 unit SUBCUT BID 10/26/20 09:30 Pharmacy to Dose - Vancomycin 1 dose .XX ASDIRECTED 10/27/20 05:11 CBC WITH AUTO DIFF [HEME] AM COMPREHENSIVE METABOLIC PN,CMP [CHEM] AM - Assessment Assessment:: Assessment: 1. Diabetic foot ulcer with possible phlegmon/abscess formation.: MRSA + 2. Cellulitis 3. Hyperglycemia in a type II diabetic 4. Past medical history: Hypertension, hyperlipidemia, diabetic neuropathy, obesity Plan Switch to Inpatient status 1. Diabetic foot ulcer with possible phlegmon/abscess formation: Wound cultures positive for MRSA: initiate Vancomycin ; Continue ertapenem. Podiatry on consult: will make decision today regarding need for bedside I&D vs surgery vs outpatient treatment; We appreciate Dr Brady assistance with this patient 2. Hyperglycemia type II diabetic: We will continue home regimen of long-acting plus short acting insulin; patient does have a home regimen of 30 long-acting insulin in a.m./p.m. Diet Diabetic neuropathy: Continue gabapentin. Past medical history: Continue home medication except Metformin - Plan Plan:: I performed a history and physical exam of the patient and discussed management with resident. I have reviewed the residents note and agree with documented findings and plan unless otherwise specified in my note.'
[2020-10-26] MEDS: VANCOmycin 1.5 GM/300 ML 300 ML IV SCH ×2 (10:37→22:57)
[2020-10-26] MEDS: Ertapenem 1 GM in Sodium Chloride 0.9% 50 ML IV SCH (15:50)
--- NOTE | 2020-10-26 20:00 | PCM.CONSN ---
- General Info Date of Service: 10/26/20 Admission Dx/Problem (Free Text): Admission Diagnosis/Problem Admission Diagnosis/Problem Cellulitis Subjective Update: No new acute distress and or complaints and no discomfort. Patient states she feels better than before. - Patient Data Vitals - Most Recent: Last Vital Signs Temp 36.1 C 10/26/20 15:49 Pulse 81 10/26/20 15:49 Resp 16 10/26/20 15:49 BP 110/73 10/26/20 15:49 Pulse Ox 95 10/26/20 15:49 Weight - Most Recent: 104.871 kg I&O - Last 24 Hours: Intake & Output 10/26/20 10/26/20 10/26/20 06:59 14:59 22:59 Intake Total 1000 1750 Output Total 2450 2300 Balance -1450 -550 Lab Results Last 24 Hours: Laboratory Results - last 24 hr 10/25/20 10/26/20 10/26/20 Range/Units 20:45 05:21 05:21 WBC 7.72 (4.0-11.0) K/uL RBC 4.17 L (4.30-5.90) M/uL Hgb 12.7 (12.0-16.0) g/dL Hct 37.9 (36.0-46.0) % MCV 90.9 (80.0-98.0) fL MCH 30.5 (27.0-32.0) pg MCHC 33.5 (31.0-37.0) g/dL RDW Std Deviation 41.0 (28.0-62.0) fl RDW Coeff of Olimpia 12 (11.0-15.0) % Plt Count 314 (150-400) K/uL MPV 10.90 (7.40-12.00) fL Neut % (Auto) 48.0 (48.0-80.0) % Lymph % (Auto) 38.2 (16.0-40.0) % [place] % (Auto) 9.1 (0.0-15.0) % Eos % (Auto) 4.3 (0.0-7.0) % Baso % (Auto) 0.4 (0.0-1.5) % Neut # (Auto) 3.7 (1.4-5.7) K/uL Lymph # (Auto) 3.0 H (0.6-2.4) K/uL [place] # (Auto) 0.7 (0.0-0.8) K/uL Eos # (Auto) 0.3 (0.0-0.7) K/uL Baso # (Auto) 0.0 (0.0-0.1) K/uL Nucleated RBC % 0.0 /100WBC Nucleated RBCs # 0 K/uL Sodium 138 (136-145) mmol/L Potassium 3.7 (3.5-5.1) mmol/L Chloride 102 (98-107) mmol/L Carbon Dioxide 28.9 (21.0-32.0) mmol/L BUN 18 (7.0-18.0) mg/dL Creatinine 0.8 (0.6-1.0) mg/dL Est Cr Clr Drug Dosing 70.54 mL/min Estimated GFR (MDRD) > 60.0 ml/min Glucose 180 H (74-106) mg/dL POC Glucose 276 H (70-99) mg/dL Calcium 9.0 (8.5-10.1) mg/dL Total Bilirubin 0.3 (0.2-1.0) mg/dL AST 26 (15-37) IU/L ALT 37 (14-63) IU/L Alkaline Phosphatase 66 (46-116) U/L Total Protein 6.8 (6.4-8.2) g/dL Albumin 2.7 L (3.4-5.0) g/dL Globulin 4.1 H (2.6-4.0) g/dL Albumin/Globulin Ratio 0.7 L (0.9-1.6) 10/26/20 10/26/20 10/26/20 Range/Units 06:53 12:17 17:23 WBC (4.0-11.0) K/uL RBC (4.30-5.90) M/uL Hgb (12.0-16.0) g/dL Hct (36.0-46.0) % MCV (80.0-98.0) fL MCH (27.0-32.0) pg MCHC (31.0-37.0) g/dL RDW Std Deviation (28.0-62.0) fl RDW Coeff of Olimpia (11.0-15.0) % Plt Count (150-400) K/uL MPV (7.40-12.00) fL Neut % (Auto) (48.0-80.0) % Lymph % (Auto) (16.0-40.0) % [place] % (Auto) (0.0-15.0) % Eos % (Auto) (0.0-7.0) % Baso % (Auto) (0.0-1.5) % Neut # (Auto) (1.4-5.7) K/uL Lymph # (Auto) (0.6-2.4) K/uL [place] # (Auto) (0.0-0.8) K/uL Eos # (Auto) (0.0-0.7) K/uL Baso # (Auto) (0.0-0.1) K/uL Nucleated RBC % /100WBC Nucleated RBCs # K/uL Sodium (136-145) mmol/L Potassium (3.5-5.1) mmol/L Chloride (98-107) mmol/L Carbon Dioxide (21.0-32.0) mmol/L BUN (7.0-18.0) mg/dL Creatinine (0.6-1.0) mg/dL Est Cr Clr Drug Dosing mL/min Estimated GFR (MDRD) ml/min Glucose (74-106) mg/dL POC Glucose 161 H 269 H 243 H (70-99) mg/dL Calcium (8.5-10.1) mg/dL Total Bilirubin (0.2-1.0) mg/dL AST (15-37) IU/L ALT (14-63) IU/L Alkaline Phosphatase (46-116) U/L Total Protein (6.4-8.2) g/dL Albumin (3.4-5.0) g/dL Globulin (2.6-4.0) g/dL Albumin/Globulin Ratio (0.9-1.6) Kofi Results Last 24 Hours: Microbiology 10/23/20 15:39 Aerobic Blood Culture - Preliminary Blood - Venous - Lab Draw NO GROWTH AFTER 3 DAYS Anaerobic Blood Culture - Preliminary NO GROWTH AFTER 3 DAYS 10/23/20 15:25 Aerobic Blood Culture - Preliminary Blood - Venous NO GROWTH AFTER 3 DAYS Anaerobic Blood Culture - Preliminary NO GROWTH AFTER 3 DAYS 10/24/20 12:30 Wound Culture - Final Foot, Right (Mrsa) Staphylococcus Aureus Skin Ronit Med Orders - Current: Current Medications Acetaminophen (Acetaminophen 325 Mg Tab) 650 mg PO Q4H PRN PRN Reason: Pain (Mild 1-3)/fever Last Admin: 10/24/20 19:58 Dose: 650 mg Documented by: Albuterol/Ipratropium (Albuterol/Ipratropium 3.0-0.5 Mg/3 Ml Neb Soln) 3 ml NEB Q4HRRT PRN PRN Reason: Shortness Of Breath/wheezing Atorvastatin Calcium (Atorvastatin 20 Mg Tab) 20 mg PO BEDTIME МАРИНА Dextrose/Water (50% Dextrose In Water 50 Ml Syringe) 50 ml IV ASDIRECTED PRN PRN Reason: Hypoglycemia Dextrose/Water (50% Dextrose In Water 50 Ml Syringe) 50 ml IV ASDIRECTED PRN PRN Reason: Hypoglycemia Duloxetine HCl (Duloxetine 30 Mg Cap) 30 mg PO DAILY [facility] Last Admin: 10/26/20 08:03 Dose: 30 mg Documented by: Enoxaparin Sodium (Enoxaparin 40 Mg/0.4 Ml Syringe) 40 mg SUBCUT Q24H [facility] Last Admin: 10/26/20 03:44 Dose: 40 mg Documented by: Gabapentin (Gabapentin 300 Mg Cap) 300 mg PO DAILY [facility] Last Admin: 10/26/20 08:02 Dose: 300 mg Documented by: Glucagon (Glucagon,Human Recombinant 1 Mg Vial) 1 mg IM ASDIRECTED PRN PRN Reason: Hypoglycemia Ertapenem 1 gm/ Sodium (Chloride) 50 mls @ 100 mls/hr IV Q24H [facility] Last Admin: 10/26/20 15:50 Dose: 100 mls/hr Documented by: Vancomycin HCl (Vancomycin 1.5 Gm/300 Ml) 300 mls @ 200 mls/hr IV Q12H [facility] Last Admin: 10/26/20 10:37 Dose: 200 mls/hr Documented by: Insulin Aspart (Insulin Aspart 100 Units/Ml 3 Ml Pen) 0 unit SUBCUT TIDAC [facility]; Protocol Last Admin: 10/26/20 18:45 Dose: 6 units Documented by: Insulin Human NPH (Insulin Isophane Nph, Human 100 Units/Ml 10 Ml Vial) 30 unit SUBCUT BID [facility] Lisinopril (Lisinopril 10 Mg Tab) 20 mg PO DAILY [facility] Last Admin: 10/26/20 08:03 Dose: 20 mg Documented by: Pantoprazole Sodium (Pantoprazole 40 Mg Tab.Cr) 40 mg PO ACBREAKFAST МАРИНА Last Admin: 10/26/20 06:54 Dose: 40 mg Documented by: Vancomycin HCl (Pharmacy To Dose - Vancomycin) 1 dose .XX ASDIRECTED МАРИНА Discontinued Medications Atorvastatin Calcium (Atorvastatin 40 Mg Tab) 20 mg PO BEDTIME МАРИНА Last Admin: 10/25/20 20:13 Dose: 20 mg Documented by: Dextrose/Water (50% Dextrose In Water 50 Ml Syringe) 50 ml IV ASDIRECTED PRN PRN Reason: Hypoglycemia Dextrose/Water (50% Dextrose In Water 50 Ml Syringe) 50 ml IV ASDIRECTED PRN PRN Reason: Hypoglycemia Ertapenem (Ertapenem 1 Gm Vial) Confirm Administered Dose 1 gm .ROUTE .STK-MED ONE Stop: 10/23/20 16:05 Last Admin: 10/23/20 16:25 Dose: Not Given Documented by: Glucagon (Glucagon,Human Recombinant 1 Mg Vial) 1 mg IM ASDIRECTED PRN PRN Reason: Hypoglycemia Glucagon (Glucagon,Human Recombinant 1 Mg Vial) 1 mg IM ASDIRECTED PRN PRN Reason: Hypoglycemia Glucagon (Glucagon,Human Recombinant 1 Mg Vial) 1 mg IM ASDIRECTED PRN PRN Reason: Hypoglycemia Sodium Chloride (Normal Saline) 1,000 mls @ 999 mls/hr IV .BOLUS ONE Stop: 10/23/20 16:11 Last Admin: 10/23/20 15:42 Dose: 999 mls/hr Documented by: Vancomycin HCl 2 gm/ Premix 400 mls @ 200 mls/hr IV STAT ONE Stop: 10/23/20 17:13 Last Admin: 10/23/20 16:21 Dose: Not Given Documented by: Ertapenem 1 gm/ Sodium (Chloride) 50 mls @ 100 mls/hr IV ONETIME ONE Stop: 10/23/20 16:18 Last Admin: 10/23/20 16:22 Dose: 100 mls/hr Documented by: Sodium Chloride (Normal Saline) Confirm Administered Dose 50 mls @ as directed .ROUTE .STK-MED ONE Stop: 10/23/20 16:06 Last Admin: 10/23/20 16:25 Dose: Not Given Documented by: Sodium Chloride (Normal Saline) 1,000 mls @ 999 mls/hr IV .BOLUS ONE Stop: 10/23/20 17:26 Last Admin: 10/23/20 17:13 Dose: 999 mls/hr Documented by: Ertapenem 1 gm/ Sodium (Chloride) 50 mls @ 100 mls/hr IV Q24H [facility] Insulin Aspart (Insulin Aspart 100 Units/Ml 3 Ml Pen) 5 unit SUBCUT ONETIME ONE Stop: 10/25/20 17:58 Last Admin: 10/25/20 18:04 Dose: 5 units Documented by: Insulin Glargine (Insulin Glargine,Human Rec. Analog 100 Units/Ml 3 Ml Pen) 25 units SUBCUT BEDTIME ONE Stop: 10/24/20 22:04 Last Admin: 10/24/20 21:32 Dose: 25 units Documented by: Insulin Glargine (Insulin Glargine,Human Rec. Analog 100 Units/Ml 3 Ml Pen) Confirm Administered Dose 300 units .ROUTE .STK-MED ONE Stop: 10/23/20 23:22 Last Admin: 10/24/20 00:13 Dose: Not Given Documented by: Insulin Human NPH (Insulin Isophane Nph, Human 100 Units/Ml 10 Ml Vial) 20 unit SUBCUT BID [facility] Last Admin: 10/25/20 08:01 Dose: 20 units Documented by: Insulin Human NPH (Insulin Isophane Nph, Human 100 Units/Ml 10 Ml Vial) 25 unit SUBCUT BID [facility] Last Admin: 10/26/20 08:04 Dose: 25 unit Documented by: Insulin Human Regular (Insulin Regular, Human 100 Units/Ml 10 Ml Vial) 25 unit SUBCUT ONETIME ONE; Protocol Stop: 10/23/20 17:50 Last Admin: 10/23/20 18:00 Dose: 25 unit Documented by: Insulin Human Regular (Insulin Regular, Human 100 Units/Ml 10 Ml Vial) 25 unit SUBCUT ONETIME ONE; Protocol Stop: 10/23/20 20:36 Last Admin: 10/23/20 21:55 Dose: Not Given Documented by: Insulin Human Regular (Insulin Regular, Human 100 Units/Ml 10 Ml Vial) 23 unit SUBCUT ONETIME ONE; Protocol Stop: 10/23/20 20:47 Last Admin: 10/23/20 21:24 Dose: 23 units Documented by: Iopamidol (Iopamidol 755 Mg/Ml 500 Ml Multipack Bottle) 100 ml IVPUSH ONETIME STA Stop: 10/24/20 16:16 Last Admin: 10/24/20 16:16 Dose: 100 ml Documented by: Lisinopril (Lisinopril 10 Mg Tab) 20 mg PO ONETIME ONE Stop: 10/24/20 19:50 Last Admin: 10/24/20 19:57 Dose: 20 mg Documented by: Ondansetron HCl (Ondansetron 4 Mg/2 Ml Sdv) 4 mg IVPUSH ONETIME ONE Stop: 10/23/20 16:01 Last Admin: 10/23/20 16:21 Dose: 4 mg Documented by: - Exam Extremities: Other Wound/Incisions: Drainage (minimal drainage from ulcers on both plantar feet) Physical Findings Comments:: There is probing 1.5 cm depth on right foot ulcer and 1.7 cm on left foot ulcer. Probing is to level of bone. Sepsis Event Note - Evaluation Sepsis Screening Result: No Definite Risk - Focused Exam Vital Signs: Vital Signs Temp Pulse Resp BP BP Pulse Ox 10/26/20 15:49 36.1 C 81 16 110/73 95 10/26/20 12:26 35.9 C L 83 17 123/73 95 10/26/20 08:03 133/89 Consult PN Assessment/Plan Procedures: Procedures ASSAY OF CK (CPK) (08/24/20) ASSAY OF LACTIC ACID (08/24/20) ASSAY OF MAGNESIUM (08/16/20) ASSAY OF PHOSPHORUS (08/16/20) ASSAY OF VANCOMYCIN (08/24/20) BLOOD CULTURE FOR BACTERIA (08/24/20) C-REACTIVE PROTEIN (08/24/20) COMPLETE CBC W/AUTO DIFF WBC (08/24/20) COMPREHEN METABOLIC PANEL (08/24/20) CT LOWER EXTREMITY W/O DYE (08/24/20) EMERGENCY DEPT VISIT (08/24/20) EXTREMITY STUDY (08/16/20) GLUCOSE BLOOD TEST (08/24/20) GLYCOSYLATED HEMOGLOBIN TEST (08/24/20) METABOLIC PANEL TOTAL CA (08/24/20) PT EVAL LOW COMPLEX 20 MIN (08/24/20) RBC SED RATE AUTOMATED (08/24/20) ROUTINE VENIPUNCTURE (08/24/20) SARS-COV-2 COVID-19 AMP PRB (08/24/20) THER/PROPH/DIAG INJ SC/IM (08/24/20) THER/PROPH/DIAG IV INF ADDON (08/24/20) THER/PROPH/DIAG IV INF INIT (09/25/20) TX/PRO/DX INJ SAME DRUG ROCKET TEST [employer]ER (08/24/20) TX/PROPH/DG ADDL SEQ IV INF (08/24/20) URINALYSIS AUTO W/SCOPE (08/24/20) X-RAY EXAM CHEST 1 VIEW (08/24/20) X-RAY EXAM OF FOOT (08/23/20) (1) Diabetic foot ulcer SNOMED Code(s): 768612477 Code(s): E11.621 - TYPE 2 DIABETES MELLITUS WITH FOOT ULCER; L97.509 - NON- PRESSURE CHRONIC ULCER OTH PRT UNSP FOOT W UNSP SEVERITY Current Visit: No Qualifiers: Diabetes mellitus type: type 2 Laterality: unspecified laterality Non- pressure ulcer stage: with necrosis of muscle Assessment:: Both left and right foot ulcers probe to bone. CTs are suggestive of possible chronic osteomyelitis. There is minimal drainage and no purulence even when exsanguinating the sites on both feet. I believe patient can be managed as outpatient if antibiotic coverage can be provided on outpatient basis via PICC line and if home health or other provider can provide at least every other day wound care as I will not be in town next week. Will discuss with Yolanda Arteaga and/or Gustavo and will follow. Problem List Initiated/Reviewed/Updated: Yes Plan: 1. Patient seen at bedside and her progress since admission and MRSA result on right foot C&S is discussed. 2. I applied pressure about all ulcer sites of both feet and again found scant drainage and probed with applicators on bilateral plantar ulcer sites. Saline flush on both plantar ulcers. Iodoform packing applied. Dry sterile dressing then applied. 3. I&D not necessary. Tracking is quite limited.
[2020-10-26] MEDS: atorvaSTATin 20 MG Tab PO SCH (22:57)
[2020-10-27] MEDS: Enoxaparin 40 MG/0.4 ML Syringe SUBCUT SCH (04:05)
[2020-10-27 06:22] LABS: BLOOD UREA NITROGEN,BUN 19 mg/dL (7.0-18.0); CARBON DIOXIDE,CO2 27.9 mmol/L (21.0-32.0); CHLORIDE,CL 105 mmol/L (98-107); GLUCOSE RANDOM 166 mg/dL (74-106); POTASSIUM,K 3.7 mmol/L (3.5-5.1); SODIUM,NA 142 mmol/L (136-145)
[2020-10-27] MEDS: Pantoprazole 40 MG Tab.CR PO SCH (06:38)
[2020-10-27] MEDS: Insulin Aspart 100 Units/ML 3 ML Pen SUBCUT SCH ×3 (07:34→17:34)
[2020-10-27] MEDS: Insulin Isophane NPH, Human 100 Units/ML 10 ML Vial SUBCUT SCH ×2 (08:52→22:28)
[2020-10-27] MEDS: Lisinopril 10 MG Tab PO SCH (08:55)
[2020-10-27] MEDS: DULoxetine 30 MG Cap PO SCH (08:55)
[2020-10-27] MEDS: Gabapentin 300 MG Cap PO SCH (08:56)
[2020-10-27] MEDS: VANCOmycin 1.5 GM/300 ML 300 ML IV SCH ×2 (10:31→22:20)
--- NOTE | 2020-10-27 12:12 | PCM.PN ---
- General Info Date of Service: 10/27/20 Subjective Update: Bedside: bedside; no acute distress. Functional Status: Reports: Pain Controlled - Review of Systems General: Reports: No Symptoms HEENT: Reports: No Symptoms Pulmonary: Reports: No Symptoms Cardiovascular: Reports: No Symptoms Gastrointestinal: Reports: No Symptoms Skin: Reports: Other (serosangenous drainage from left foot > right ; packing removed w. no increased drainage ) Neurological: Reports: No Symptoms Psychiatric: Reports: No Symptoms - Patient Data Vitals - Most Recent: Last Vital Signs Temp 96.6 F L 10/27/20 11:00 Pulse 91 10/27/20 11:00 Resp 18 10/27/20 11:00 BP 115/76 10/27/20 11:00 Pulse Ox 96 10/27/20 11:00 Weight - Most Recent: 104.871 kg I&O - Last 24 Hours: Intake & Output 10/26/20 10/27/20 10/27/20 22:59 06:59 14:59 Intake Total 1750 1200 Output Total 2300 2500 Balance -550 -1300 Lab Results Last 24 Hours: Laboratory Results - last 24 hr 10/26/20 10/26/20 10/26/20 Range/Units 12:17 17:23 22:56 WBC (4.0-11.0) K/uL RBC (4.30-5.90) M/uL Hgb (12.0-16.0) g/dL Hct (36.0-46.0) % MCV (80.0-98.0) fL MCH (27.0-32.0) pg MCHC (31.0-37.0) g/dL RDW Std Deviation (28.0-62.0) fl RDW Coeff of Olimpia (11.0-15.0) % Plt Count (150-400) K/uL MPV (7.40-12.00) fL Neut % (Auto) (48.0-80.0) % Lymph % (Auto) (16.0-40.0) % [place] % (Auto) (0.0-15.0) % Eos % (Auto) (0.0-7.0) % Baso % (Auto) (0.0-1.5) % Neut # (Auto) (1.4-5.7) K/uL Lymph # (Auto) (0.6-2.4) K/uL [place] # (Auto) (0.0-0.8) K/uL Eos # (Auto) (0.0-0.7) K/uL Baso # (Auto) (0.0-0.1) K/uL Nucleated RBC % /100WBC Nucleated RBCs # K/uL Sodium (136-145) mmol/L Potassium (3.5-5.1) mmol/L Chloride (98-107) mmol/L Carbon Dioxide (21.0-32.0) mmol/L BUN (7.0-18.0) mg/dL Creatinine (0.6-1.0) mg/dL Est Cr Clr Drug Dosing mL/min Estimated GFR (MDRD) ml/min Glucose (74-106) mg/dL POC Glucose 269 H 243 H 206 H (70-99) mg/dL Calcium (8.5-10.1) mg/dL Total Bilirubin (0.2-1.0) mg/dL AST (15-37) IU/L ALT (14-63) IU/L Alkaline Phosphatase (46-116) U/L Total Protein (6.4-8.2) g/dL Albumin (3.4-5.0) g/dL Globulin (2.6-4.0) g/dL Albumin/Globulin Ratio (0.9-1.6) 10/27/20 10/27/20 10/27/20 Range/Units 04:50 04:50 11:36 WBC 7.81 (4.0-11.0) K/uL RBC 4.28 L (4.30-5.90) M/uL Hgb 13.1 (12.0-16.0) g/dL Hct 38.8 (36.0-46.0) % MCV 90.7 (80.0-98.0) fL MCH 30.6 (27.0-32.0) pg MCHC 33.8 (31.0-37.0) g/dL RDW Std Deviation 40.8 (28.0-62.0) fl RDW Coeff of Olimpia 12 (11.0-15.0) % Plt Count 311 (150-400) K/uL MPV 10.90 (7.40-12.00) fL Neut % (Auto) 50.0 (48.0-80.0) % Lymph % (Auto) 36.6 (16.0-40.0) % [place] % (Auto) 9.3 (0.0-15.0) % Eos % (Auto) 3.7 (0.0-7.0) % Baso % (Auto) 0.4 (0.0-1.5) % Neut # (Auto) 3.9 (1.4-5.7) K/uL Lymph # (Auto) 2.9 H (0.6-2.4) K/uL [place] # (Auto) 0.7 (0.0-0.8) K/uL Eos # (Auto) 0.3 (0.0-0.7) K/uL Baso # (Auto) 0.0 (0.0-0.1) K/uL Nucleated RBC % 0.0 /100WBC Nucleated RBCs # 0 K/uL Sodium 142 (136-145) mmol/L Potassium 3.7 (3.5-5.1) mmol/L Chloride 105 (98-107) mmol/L Carbon Dioxide 27.9 (21.0-32.0) mmol/L BUN 19 H (7.0-18.0) mg/dL Creatinine 0.8 (0.6-1.0) mg/dL Est Cr Clr Drug Dosing 70.54 mL/min Estimated GFR (MDRD) > 60.0 ml/min Glucose 166 H (74-106) mg/dL POC Glucose 265 H (70-99) mg/dL Calcium 8.5 (8.5-10.1) mg/dL Total Bilirubin 0.5 (0.2-1.0) mg/dL AST 29 (15-37) IU/L ALT 40 (14-63) IU/L Alkaline Phosphatase 66 (46-116) U/L Total Protein 7.0 (6.4-8.2) g/dL Albumin 2.8 L (3.4-5.0) g/dL Globulin 4.2 H (2.6-4.0) g/dL Albumin/Globulin Ratio 0.7 L (0.9-1.6) Kofi Results Last 24 Hours: Microbiology 10/23/20 15:39 Aerobic Blood Culture - Preliminary Blood - Venous - Lab Draw NO GROWTH AFTER 3 DAYS Anaerobic Blood Culture - Preliminary NO GROWTH AFTER 3 DAYS 10/23/20 15:25 Aerobic Blood Culture - Preliminary Blood - Venous NO GROWTH AFTER 3 DAYS Anaerobic Blood Culture - Preliminary NO GROWTH AFTER 3 DAYS 10/24/20 12:30 Wound Culture - Final Foot, Right (Mrsa) Staphylococcus Aureus Skin Ronit Med Orders - Current: Current Medications Acetaminophen (Acetaminophen 325 Mg Tab) 650 mg PO Q4H PRN PRN Reason: Pain (Mild 1-3)/fever Last Admin: 10/24/20 19:58 Dose: 650 mg Documented by: Albuterol/Ipratropium (Albuterol/Ipratropium 3.0-0.5 Mg/3 Ml Neb Soln) 3 ml NEB Q4HRRT PRN PRN Reason: Shortness Of Breath/wheezing Atorvastatin Calcium (Atorvastatin 20 Mg Tab) 20 mg PO BEDTIME [facility] Last Admin: 10/26/20 22:57 Dose: 20 mg Documented by: Dextrose/Water (50% Dextrose In Water 50 Ml Syringe) 50 ml IV ASDIRECTED PRN PRN Reason: Hypoglycemia Dextrose/Water (50% Dextrose In Water 50 Ml Syringe) 50 ml IV ASDIRECTED PRN PRN Reason: Hypoglycemia Duloxetine HCl (Duloxetine 30 Mg Cap) 30 mg PO DAILY [facility] Last Admin: 10/27/20 08:55 Dose: 30 mg Documented by: Enoxaparin Sodium (Enoxaparin 40 Mg/0.4 Ml Syringe) 40 mg SUBCUT Q24H [facility] Last Admin: 10/27/20 04:05 Dose: 40 mg Documented by: Gabapentin (Gabapentin 300 Mg Cap) 300 mg PO DAILY [facility] Last Admin: 10/27/20 08:56 Dose: 300 mg Documented by: Glucagon (Glucagon,Human Recombinant 1 Mg Vial) 1 mg IM ASDIRECTED PRN PRN Reason: Hypoglycemia Ertapenem 1 gm/ Sodium (Chloride) 50 mls @ 100 mls/hr IV Q24H [facility] Last Admin: 10/26/20 15:50 Dose: 100 mls/hr Documented by: Vancomycin HCl (Vancomycin 1.5 Gm/300 Ml) 300 mls @ 200 mls/hr IV Q12H [facility] Last Admin: 10/27/20 10:31 Dose: 200 mls/hr Documented by: Insulin Aspart (Insulin Aspart 100 Units/Ml 3 Ml Pen) 0 unit SUBCUT TIDAC [facility]; Protocol Last Admin: 10/27/20 07:34 Dose: Not Given Documented by: Insulin Human NPH (Insulin Isophane Nph, Human 100 Units/Ml 10 Ml Vial) 30 unit SUBCUT BID [facility] Last Admin: 10/27/20 08:52 Dose: 30 units Documented by: Lisinopril (Lisinopril 10 Mg Tab) 20 mg PO DAILY [facility] Last Admin: 10/27/20 08:55 Dose: 20 mg Documented by: Pantoprazole Sodium (Pantoprazole 40 Mg Tab.Cr) 40 mg PO ACBREAKFAST [facility] Last Admin: 10/27/20 06:38 Dose: 40 mg Documented by: Vancomycin HCl (Pharmacy To Dose - Vancomycin) 1 dose .XX ASDIRECTED [facility] Discontinued Medications Atorvastatin Calcium (Atorvastatin 40 Mg Tab) 20 mg PO BEDTIME [facility] Last Admin: 10/25/20 20:13 Dose: 20 mg Documented by: Dextrose/Water (50% Dextrose In Water 50 Ml Syringe) 50 ml IV ASDIRECTED PRN PRN Reason: Hypoglycemia Dextrose/Water (50% Dextrose In Water 50 Ml Syringe) 50 ml IV ASDIRECTED PRN PRN Reason: Hypoglycemia Ertapenem (Ertapenem 1 Gm Vial) Confirm Administered Dose 1 gm .ROUTE .STK-MED ONE Stop: 10/23/20 16:05 Last Admin: 10/23/20 16:25 Dose: Not Given Documented by: Glucagon (Glucagon,Human Recombinant 1 Mg Vial) 1 mg IM ASDIRECTED PRN PRN Reason: Hypoglycemia Glucagon (Glucagon,Human Recombinant 1 Mg Vial) 1 mg IM ASDIRECTED PRN PRN Reason: Hypoglycemia Glucagon (Glucagon,Human Recombinant 1 Mg Vial) 1 mg IM ASDIRECTED PRN PRN Reason: Hypoglycemia Sodium Chloride (Normal Saline) 1,000 mls @ 999 mls/hr IV .BOLUS ONE Stop: 10/23/20 16:11 Last Admin: 10/23/20 15:42 Dose: 999 mls/hr Documented by: Vancomycin HCl 2 gm/ Premix 400 mls @ 200 mls/hr IV STAT ONE Stop: 10/23/20 17:13 Last Admin: 10/23/20 16:21 Dose: Not Given Documented by: Ertapenem 1 gm/ Sodium (Chloride) 50 mls @ 100 mls/hr IV ONETIME ONE Stop: 10/23/20 16:18 Last Admin: 10/23/20 16:22 Dose: 100 mls/hr Documented by: Sodium Chloride (Normal Saline) Confirm Administered Dose 50 mls @ as directed .ROUTE .STK-MED ONE Stop: 10/23/20 16:06 Last Admin: 10/23/20 16:25 Dose: Not Given Documented by: Sodium Chloride (Normal Saline) 1,000 mls @ 999 mls/hr IV .BOLUS ONE Stop: 10/23/20 17:26 Last Admin: 10/23/20 17:13 Dose: 999 mls/hr Documented by: Ertapenem 1 gm/ Sodium (Chloride) 50 mls @ 100 mls/hr IV Q24H [facility] Insulin Aspart (Insulin Aspart 100 Units/Ml 3 Ml Pen) 5 unit SUBCUT ONETIME ONE Stop: 10/25/20 17:58 Last Admin: 10/25/20 18:04 Dose: 5 units Documented by: Insulin Glargine (Insulin Glargine,Human Rec. Analog 100 Units/Ml 3 Ml Pen) 25 units SUBCUT BEDTIME ONE Stop: 10/24/20 22:04 Last Admin: 10/24/20 21:32 Dose: 25 units Documented by: Insulin Glargine (Insulin Glargine,Human Rec. Analog 100 Units/Ml 3 Ml Pen) Confirm Administered Dose 300 units .ROUTE .STK-MED ONE Stop: 10/23/20 23:22 Last Admin: 10/24/20 00:13 Dose: Not Given Documented by: Insulin Human NPH (Insulin Isophane Nph, Human 100 Units/Ml 10 Ml Vial) 20 unit SUBCUT BID [facility] Last Admin: 10/25/20 08:01 Dose: 20 units Documented by: Insulin Human NPH (Insulin Isophane Nph, Human 100 Units/Ml 10 Ml Vial) 25 unit SUBCUT BID [facility] Last Admin: 10/26/20 08:04 Dose: 25 unit Documented by: Insulin Human Regular (Insulin Regular, Human 100 Units/Ml 10 Ml Vial) 25 unit SUBCUT ONETIME ONE; Protocol Stop: 10/23/20 17:50 Last Admin: 10/23/20 18:00 Dose: 25 unit Documented by: Insulin Human Regular (Insulin Regular, Human 100 Units/Ml 10 Ml Vial) 25 unit SUBCUT ONETIME ONE; Protocol Stop: 10/23/20 20:36 Last Admin: 10/23/20 21:55 Dose: Not Given Documented by: Insulin Human Regular (Insulin Regular, Human 100 Units/Ml 10 Ml Vial) 23 unit SUBCUT ONETIME ONE; Protocol Stop: 10/23/20 20:47 Last Admin: 10/23/20 21:24 Dose: 23 units Documented by: Iopamidol (Iopamidol 755 Mg/Ml 500 Ml Multipack Bottle) 100 ml IVPUSH ONETIME STA Stop: 10/24/20 16:16 Last Admin: 10/24/20 16:16 Dose: 100 ml Documented by: Lisinopril (Lisinopril 10 Mg Tab) 20 mg PO ONETIME ONE Stop: 10/24/20 19:50 Last Admin: 10/24/20 19:57 Dose: 20 mg Documented by: Ondansetron HCl (Ondansetron 4 Mg/2 Ml Sdv) 4 mg IVPUSH ONETIME ONE Stop: 10/23/20 16:01 Last Admin: 10/23/20 16:21 Dose: 4 mg Documented by: - Exam General: Alert, Oriented HEENT: EOMI Neck: Supple Lungs: Clear to Auscultation, Normal Respiratory Effort Cardiovascular: Regular Rate, Regular Rhythm GI/Abdominal Exam: Soft, Non-Tender Back Exam: Normal Inspection Wound/Incisions: Drainage, Erythema Improving, Other (dressing w. serosangenous fluid noted over left foot ; nominal changes ) Psy/Mental Status: Alert, Normal Mood - Patient Data Lab Results Last 24 hrs: Laboratory Results - last 24 hr 10/26/20 10/26/20 10/26/20 Range/Units 12:17 17:23 22:56 WBC (4.0-11.0) K/uL RBC (4.30-5.90) M/uL Hgb (12.0-16.0) g/dL Hct (36.0-46.0) % MCV (80.0-98.0) fL MCH (27.0-32.0) pg MCHC (31.0-37.0) g/dL RDW Std Deviation (28.0-62.0) fl RDW Coeff of Olimpia (11.0-15.0) % Plt Count (150-400) K/uL MPV (7.40-12.00) fL Neut % (Auto) (48.0-80.0) % Lymph % (Auto) (16.0-40.0) % [place] % (Auto) (0.0-15.0) % Eos % (Auto) (0.0-7.0) % Baso % (Auto) (0.0-1.5) % Neut # (Auto) (1.4-5.7) K/uL Lymph # (Auto) (0.6-2.4) K/uL [place] # (Auto) (0.0-0.8) K/uL Eos # (Auto) (0.0-0.7) K/uL Baso # (Auto) (0.0-0.1) K/uL Nucleated RBC % /100WBC Nucleated RBCs # K/uL Sodium (136-145) mmol/L Potassium (3.5-5.1) mmol/L Chloride (98-107) mmol/L Carbon Dioxide (21.0-32.0) mmol/L BUN (7.0-18.0) mg/dL Creatinine (0.6-1.0) mg/dL Est Cr Clr Drug Dosing mL/min Estimated GFR (MDRD) ml/min Glucose (74-106) mg/dL POC Glucose 269 H 243 H 206 H (70-99) mg/dL Calcium (8.5-10.1) mg/dL Total Bilirubin (0.2-1.0) mg/dL AST (15-37) IU/L ALT (14-63) IU/L Alkaline Phosphatase (46-116) U/L Total Protein (6.4-8.2) g/dL Albumin (3.4-5.0) g/dL Globulin (2.6-4.0) g/dL Albumin/Globulin Ratio (0.9-1.6) 10/27/20 10/27/20 10/27/20 Range/Units 04:50 04:50 11:36 WBC 7.81 (4.0-11.0) K/uL RBC 4.28 L (4.30-5.90) M/uL Hgb 13.1 (12.0-16.0) g/dL Hct 38.8 (36.0-46.0) % MCV 90.7 (80.0-98.0) fL MCH 30.6 (27.0-32.0) pg MCHC 33.8 (31.0-37.0) g/dL RDW Std Deviation 40.8 (28.0-62.0) fl RDW Coeff of Olimpia 12 (11.0-15.0) % Plt Count 311 (150-400) K/uL MPV 10.90 (7.40-12.00) fL Neut % (Auto) 50.0 (48.0-80.0) % Lymph % (Auto) 36.6 (16.0-40.0) % [place] % (Auto) 9.3 (0.0-15.0) % Eos % (Auto) 3.7 (0.0-7.0) % Baso % (Auto) 0.4 (0.0-1.5) % Neut # (Auto) 3.9 (1.4-5.7) K/uL Lymph # (Auto) 2.9 H (0.6-2.4) K/uL [place] # (Auto) 0.7 (0.0-0.8) K/uL Eos # (Auto) 0.3 (0.0-0.7) K/uL Baso # (Auto) 0.0 (0.0-0.1) K/uL Nucleated RBC % 0.0 /100WBC Nucleated RBCs # 0 K/uL Sodium 142 (136-145) mmol/L Potassium 3.7 (3.5-5.1) mmol/L Chloride 105 (98-107) mmol/L Carbon Dioxide 27.9 (21.0-32.0) mmol/L BUN 19 H (7.0-18.0) mg/dL Creatinine 0.8 (0.6-1.0) mg/dL Est Cr Clr Drug Dosing 70.54 mL/min Estimated GFR (MDRD) > 60.0 ml/min Glucose 166 H (74-106) mg/dL POC Glucose 265 H (70-99) mg/dL Calcium 8.5 (8.5-10.1) mg/dL Total Bilirubin 0.5 (0.2-1.0) mg/dL AST 29 (15-37) IU/L ALT 40 (14-63) IU/L Alkaline Phosphatase 66 (46-116) U/L Total Protein 7.0 (6.4-8.2) g/dL Albumin 2.8 L (3.4-5.0) g/dL Globulin 4.2 H (2.6-4.0) g/dL Albumin/Globulin Ratio 0.7 L (0.9-1.6) Result Diagrams: 10/27/20 04:50 10/27/20 04:50 Kofi Results Last 24 hrs: Microbiology 10/23/20 15:39 Aerobic Blood Culture - Preliminary Blood - Venous - Lab Draw NO GROWTH AFTER 3 DAYS Anaerobic Blood Culture - Preliminary NO GROWTH AFTER 3 DAYS 10/23/20 15:25 Aerobic Blood Culture - Preliminary Blood - Venous NO GROWTH AFTER 3 DAYS Anaerobic Blood Culture - Preliminary NO GROWTH AFTER 3 DAYS 10/24/20 12:30 Wound Culture - Final Foot, Right (Mrsa) Staphylococcus Aureus Skin Ronit Sepsis Event Note - Evaluation Sepsis Screening Result: No Definite Risk - Focused Exam Vital Signs: Vital Signs Temp Pulse Resp BP BP Pulse Ox 10/27/20 11:00 96.6 F L 91 18 115/76 96 10/27/20 08:55 135/86 10/27/20 07:00 96.8 F L 88 16 125/88 96 10/27/20 04:08 97 F 87 16 104/70 95 - Problem List & Annotations (1) Cellulitis of foot SNOMED Code(s): 260281682 Code(s): L03.119 - CELLULITIS OF UNSPECIFIED PART OF LIMB Status: Acute Current Visit: Yes (2) Diabetic foot ulcer SNOMED Code(s): 069294365 Code(s): E11.621 - TYPE 2 DIABETES MELLITUS WITH FOOT ULCER; L97.509 - NON-PRESSURE CHRONIC ULCER OTH PRT UNSP FOOT W UNSP SEVERITY Status: Acute Current Visit: No Qualifiers: Diabetes mellitus type: type 2 Laterality: unspecified laterality Non-pressure ulcer stage: with necrosis of muscle (3) Hyperlipemia SNOMED Code(s): 77509936 Code(s): E78.5 - HYPERLIPIDEMIA, UNSPECIFIED Status: Chronic Current Visit: No (4) Hypertension SNOMED Code(s): 78772524 Code(s): I10 - ESSENTIAL (PRIMARY) HYPERTENSION Status: Chronic Current Visit: No (5) Neuropathy SNOMED Code(s): 293955988 Code(s): G62.9 - POLYNEUROPATHY, UNSPECIFIED Status: Chronic Current Visit: No (6) Obesity SNOMED Code(s): 679496710, 432571109 Code(s): E66.9 - OBESITY, UNSPECIFIED Status: Chronic Current Visit: No - Problem List Review Problem List Initiated/Reviewed/Updated: Yes - My Orders Last 24 Hours: My Active Orders 10/26/20 11:15 Admission Status [Patient Status] [ADT] Routine 10/26/20 21:00 Insulin Isophane NPH, Human [NovoLIN N] 30 unit SUBCUT BID - Assessment Assessment:: Assessment: 1. Diabetic foot ulcer with possible phlegmon/abscess formation.: MRSA + 2. Cellulitis 3. Hyperglycemia in a type II diabetic:improving 4. Past medical history: Hypertension, hyperlipidemia, diabetic neuropathy, obesity Plan 1. Diabetic foot ulcer with possible phlegmon/abscess formation: Wound cultures positive for MRSA: continue vancomycin and ertapenem for now May consider discharge pending recommendation from ID regarding need for ertapenem + daptomycin x 6 weeks Podiatry on consult:most likely can be discharged for outpatient dressing/packing Will set up appointment once discharged 2. Hyperglycemia type II diabetic: We will continue home regimen of long-acting plus short acting insulin; patient does have a home regimen of 30 long-acting insulin in a.m./p.m. Diet Diabetic neuropathy: Continue gabapentin. Past medical history: Continue home medication except Metformin - Plan Plan:: I performed a history and physical exam of the patient and discussed management with resident. I have reviewed the residents note and agree with documented findings and plan unless otherwise specified in my note.'
[2020-10-27] MEDS: Ertapenem 1 GM in Sodium Chloride 0.9% 50 ML IV SCH (15:34)
[2020-10-27] MEDS: atorvaSTATin 20 MG Tab PO SCH (22:18)
[2020-10-28] MEDS: Enoxaparin 40 MG/0.4 ML Syringe SUBCUT SCH (02:54)
[2020-10-28] MEDS: Pantoprazole 40 MG Tab.CR PO SCH (06:30)
[2020-10-28 06:53] LABS: BLOOD UREA NITROGEN,BUN 17 mg/dL (7.0-18.0); CARBON DIOXIDE,CO2 26.5 mmol/L (21.0-32.0); CHLORIDE,CL 102 mmol/L (98-107); GLUCOSE RANDOM 215 mg/dL (74-106); POTASSIUM,K 3.8 mmol/L (3.5-5.1); SODIUM,NA 138 mmol/L (136-145)
--- NOTE | 2020-10-28 07:14 | PCM.CONSN ---
- General Info Date of Service: 10/28/20 Admission Dx/Problem (Free Text): Admission Diagnosis/Problem Admission Diagnosis/Problem Cellulitis bilateral plantar foot diabetic ulcers Subjective Update: Bedside: patient in no apparent distress and states she is feeling well - Patient Data Vitals - Most Recent: Last Vital Signs Temp 36.8 C 10/28/20 02:47 Pulse 95 10/28/20 02:47 Resp 18 10/28/20 02:47 BP 99/59 L 10/28/20 02:47 Pulse Ox 95 10/28/20 02:47 Weight - Most Recent: 104.871 kg I&O - Last 24 Hours: Intake & Output 10/27/20 10/28/20 10/28/20 22:59 06:59 14:59 Intake Total 1500 800 Output Total 2100 900 Balance -600 -100 Lab Results Last 24 Hours: Laboratory Results - last 24 hr 10/23/20 10/23/20 10/27/20 Range/Units 17:47 20:31 11:36 WBC (4.0-11.0) K/uL RBC (4.30-5.90) M/uL Hgb (12.0-16.0) g/dL Hct (36.0-46.0) % MCV (80.0-98.0) fL MCH (27.0-32.0) pg MCHC (31.0-37.0) g/dL RDW Std Deviation (28.0-62.0) fl RDW Coeff of [place]limp[place] (11.0-15.0) % Plt Count (150-400) K/uL MPV (7.40-12.00) fL Neut % (Auto) (48.0-80.0) % Lymph % (Auto) (16.0-40.0) % [place] % (Auto) (0.0-15.0) % Eos % (Auto) (0.0-7.0) % Baso % (Auto) (0.0-1.5) % Neut # (Auto) (1.4-5.7) K/uL Lymph # (Auto) (0.6-2.4) K/uL [place] # (Auto) (0.0-0.8) K/uL Eos # (Auto) (0.0-0.7) K/uL Baso # (Auto) (0.0-0.1) K/uL Nucleated RBC % /100WBC Nucleated RBCs # K/uL Sodium (136-145) mmol/L Potassium (3.5-5.1) mmol/L Chloride (98-107) mmol/L Carbon Dioxide (21.0-32.0) mmol/L BUN (7.0-18.0) mg/dL Creatinine (0.6-1.0) mg/dL Est Cr Clr Drug Dosing mL/min Estimated GFR (MDRD) ml/min Glucose (74-106) mg/dL POC Glucose 274 H 285 H 265 H (70-99) mg/dL Calcium (8.5-10.1) mg/dL 10/27/20 10/27/20 10/28/20 Range/Units 17:30 22:14 06:05 WBC 8.92 (4.0-11.0) K/uL RBC 4.27 L (4.30-5.90) M/uL Hgb 13.1 (12.0-16.0) g/dL Hct 38.9 (36.0-46.0) % MCV 91.1 (80.0-98.0) fL MCH 30.7 (27.0-32.0) pg MCHC 33.7 (31.0-37.0) g/dL RDW Std Deviation 41.3 (28.0-62.0) fl RDW Coeff of [place]limp[place] 13 (11.0-15.0) % Plt Count 283 (150-400) K/uL MPV 10.40 (7.40-12.00) fL Neut % (Auto) 60.4 (48.0-80.0) % Lymph % (Auto) 26.5 (16.0-40.0) % [place] % (Auto) 10.2 (0.0-15.0) % Eos % (Auto) 2.6 (0.0-7.0) % Baso % (Auto) 0.3 (0.0-1.5) % Neut # (Auto) 5.4 (1.4-5.7) K/uL Lymph # (Auto) 2.4 (0.6-2.4) K/uL [place] # (Auto) 0.9 H (0.0-0.8) K/uL Eos # (Auto) 0.2 (0.0-0.7) K/uL Baso # (Auto) 0.0 (0.0-0.1) K/uL Nucleated RBC % 0.0 /100WBC Nucleated RBCs # 0 K/uL Sodium (136-145) mmol/L Potassium (3.5-5.1) mmol/L Chloride (98-107) mmol/L Carbon Dioxide (21.0-32.0) mmol/L BUN (7.0-18.0) mg/dL Creatinine (0.6-1.0) mg/dL Est Cr Clr Drug Dosing mL/min Estimated GFR (MDRD) ml/min Glucose (74-106) mg/dL POC Glucose 207 H 228 H (70-99) mg/dL Calcium (8.5-10.1) mg/dL 10/28/20 10/28/20 Range/Units 06:05 06:27 WBC (4.0-11.0) K/uL RBC (4.30-5.90) M/uL Hgb (12.0-16.0) g/dL Hct (36.0-46.0) % MCV (80.0-98.0) fL MCH (27.0-32.0) pg MCHC (31.0-37.0) g/dL RDW Std Deviation (28.0-62.0) fl RDW Coeff of [place]limp[place] (11.0-15.0) % Plt Count (150-400) K/uL MPV (7.40-12.00) fL Neut % (Auto) (48.0-80.0) % Lymph % (Auto) (16.0-40.0) % [place] % (Auto) (0.0-15.0) % Eos % (Auto) (0.0-7.0) % Baso % (Auto) (0.0-1.5) % Neut # (Auto) (1.4-5.7) K/uL Lymph # (Auto) (0.6-2.4) K/uL [place] # (Auto) (0.0-0.8) K/uL Eos # (Auto) (0.0-0.7) K/uL Baso # (Auto) (0.0-0.1) K/uL Nucleated RBC % /100WBC Nucleated RBCs # K/uL Sodium 138 (136-145) mmol/L Potassium 3.8 (3.5-5.1) mmol/L Chloride 102 (98-107) mmol/L Carbon Dioxide 26.5 (21.0-32.0) mmol/L BUN 17 (7.0-18.0) mg/dL Creatinine 0.8 (0.6-1.0) mg/dL Est Cr Clr Drug Dosing 70.54 mL/min Estimated GFR (MDRD) > 60.0 ml/min Glucose 215 H (74-106) mg/dL POC Glucose 211 H (70-99) mg/dL Calcium 9.1 (8.5-10.1) mg/dL Kofi Results Last 24 Hours: Microbiology 10/23/20 15:39 Aerobic Blood Culture - Preliminary Blood - Venous - Lab Draw NO GROWTH AFTER 4 DAYS Anaerobic Blood Culture - Preliminary NO GROWTH AFTER 4 DAYS 10/23/20 15:25 Aerobic Blood Culture - Preliminary Blood - Venous NO GROWTH AFTER 4 DAYS Anaerobic Blood Culture - Preliminary NO GROWTH AFTER 4 DAYS 10/25/20 11:00 Wound Culture - Final Foot, Left (Mrsa) Staphylococcus Aureus Skin Ronit Med Orders - Current: Current Medications Acetaminophen (Acetaminophen 325 Mg Tab) 650 mg PO Q4H PRN PRN Reason: Pain (Mild 1-3)/fever Last Admin: 10/24/20 19:58 Dose: 650 mg Documented by: Albuterol/Ipratropium (Albuterol/Ipratropium 3.0-0.5 Mg/3 Ml Neb Soln) 3 ml NEB Q4HRRT PRN PRN Reason: Shortness Of Breath/wheezing Atorvastatin Calcium (Atorvastatin 20 Mg Tab) 20 mg PO BEDTIME [facility] Last Admin: 10/27/20 22:18 Dose: 20 mg Documented by: Dextrose/Water (50% Dextrose In Water 50 Ml Syringe) 50 ml IV ASDIRECTED PRN PRN Reason: Hypoglycemia Dextrose/Water (50% Dextrose In Water 50 Ml Syringe) 50 ml IV ASDIRECTED PRN PRN Reason: Hypoglycemia Duloxetine HCl (Duloxetine 30 Mg Cap) 30 mg PO DAILY [facility] Last Admin: 10/27/20 08:55 Dose: 30 mg Documented by: Enoxaparin Sodium (Enoxaparin 40 Mg/0.4 Ml Syringe) 40 mg SUBCUT Q24H [facility] Last Admin: 10/28/20 02:54 Dose: 40 mg Documented by: Gabapentin (Gabapentin 300 Mg Cap) 300 mg PO DAILY [facility] Last Admin: 10/27/20 08:56 Dose: 300 mg Documented by: Glucagon (Glucagon,Human Recombinant 1 Mg Vial) 1 mg IM ASDIRECTED PRN PRN Reason: Hypoglycemia Ertapenem 1 gm/ Sodium (Chloride) 50 mls @ 100 mls/hr IV Q24H [facility] Last Admin: 10/27/20 15:34 Dose: 100 mls/hr Documented by: Vancomycin HCl (Vancomycin 1.5 Gm/300 Ml) 300 mls @ 200 mls/hr IV Q12H [facility] Last Admin: 10/27/20 22:20 Dose: 200 mls/hr Documented by: Insulin Aspart (Insulin Aspart 100 Units/Ml 3 Ml Pen) 0 unit SUBCUT TIDAC [facility]; Protocol Last Admin: 10/27/20 17:34 Dose: 6 units Documented by: Insulin Human NPH (Insulin Isophane Nph, Human 100 Units/Ml 10 Ml Vial) 30 unit SUBCUT BID [facility] Last Admin: 10/27/20 22:28 Dose: 30 units Documented by: Lisinopril (Lisinopril 10 Mg Tab) 20 mg PO DAILY [facility] Last Admin: 10/27/20 08:55 Dose: 20 mg Documented by: Pantoprazole Sodium (Pantoprazole 40 Mg Tab.Cr) 40 mg PO ACBREAKFAST [facility] Last Admin: 10/28/20 06:30 Dose: 40 mg Documented by: Vancomycin HCl (Pharmacy To Dose - Vancomycin) 1 dose .XX ASDIRECTED [facility] Discontinued Medications Atorvastatin Calcium (Atorvastatin 40 Mg Tab) 20 mg PO BEDTIME [facility] Last Admin: 10/25/20 20:13 Dose: 20 mg Documented by: Dextrose/Water (50% Dextrose In Water 50 Ml Syringe) 50 ml IV ASDIRECTED PRN PRN Reason: Hypoglycemia Dextrose/Water (50% Dextrose In Water 50 Ml Syringe) 50 ml IV ASDIRECTED PRN PRN Reason: Hypoglycemia Ertapenem (Ertapenem 1 Gm Vial) Confirm Administered Dose 1 gm .ROUTE .STK-MED ONE Stop: 10/23/20 16:05 Last Admin: 10/23/20 16:25 Dose: Not Given Documented by: Glucagon (Glucagon,Human Recombinant 1 Mg Vial) 1 mg IM ASDIRECTED PRN PRN Reason: Hypoglycemia Glucagon (Glucagon,Human Recombinant 1 Mg Vial) 1 mg IM ASDIRECTED PRN PRN Reason: Hypoglycemia Glucagon (Glucagon,Human Recombinant 1 Mg Vial) 1 mg IM ASDIRECTED PRN PRN Reason: Hypoglycemia Sodium Chloride (Normal Saline) 1,000 mls @ 999 mls/hr IV .BOLUS ONE Stop: 10/23/20 16:11 Last Admin: 10/23/20 15:42 Dose: 999 mls/hr Documented by: Vancomycin HCl 2 gm/ Premix 400 mls @ 200 mls/hr IV STAT ONE Stop: 10/23/20 17:13 Last Admin: 10/23/20 16:21 Dose: Not Given Documented by: Ertapenem 1 gm/ Sodium (Chloride) 50 mls @ 100 mls/hr IV ONETIME ONE Stop: 10/23/20 16:18 Last Admin: 10/23/20 16:22 Dose: 100 mls/hr Documented by: Sodium Chloride (Normal Saline) Confirm Administered Dose 50 mls @ as directed .ROUTE .STK-MED ONE Stop: 10/23/20 16:06 Last Admin: 10/23/20 16:25 Dose: Not Given Documented by: Sodium Chloride (Normal Saline) 1,000 mls @ 999 mls/hr IV .BOLUS ONE Stop: 10/23/20 17:26 Last Admin: 10/23/20 17:13 Dose: 999 mls/hr Documented by: Ertapenem 1 gm/ Sodium (Chloride) 50 mls @ 100 mls/hr IV Q24H [facility] Insulin Aspart (Insulin Aspart 100 Units/Ml 3 Ml Pen) 5 unit SUBCUT ONETIME ONE Stop: 10/25/20 17:58 Last Admin: 10/25/20 18:04 Dose: 5 units Documented by: Insulin Glargine (Insulin Glargine,Human Rec. Analog 100 Units/Ml 3 Ml Pen) 25 units SUBCUT BEDTIME ONE Stop: 10/24/20 22:04 Last Admin: 10/24/20 21:32 Dose: 25 units Documented by: Insulin Glargine (Insulin Glargine,Human Rec. Analog 100 Units/Ml 3 Ml Pen) Confirm Administered Dose 300 units .ROUTE .STK-MED ONE Stop: 10/23/20 23:22 Last Admin: 10/24/20 00:13 Dose: Not Given Documented by: Insulin Human NPH (Insulin Isophane Nph, Human 100 Units/Ml 10 Ml Vial) 20 unit SUBCUT BID [facility] Last Admin: 10/25/20 08:01 Dose: 20 units Documented by: Insulin Human NPH (Insulin Isophane Nph, Human 100 Units/Ml 10 Ml Vial) 25 unit SUBCUT BID [facility] Last Admin: 10/26/20 08:04 Dose: 25 unit Documented by: Insulin Human Regular (Insulin Regular, Human 100 Units/Ml 10 Ml Vial) 25 unit SUBCUT ONETIME ONE; Protocol Stop: 10/23/20 17:50 Last Admin: 10/23/20 18:00 Dose: 25 unit Documented by: Insulin Human Regular (Insulin Regular, Human 100 Units/Ml 10 Ml Vial) 25 unit SUBCUT ONETIME ONE; Protocol Stop: 10/23/20 20:36 Last Admin: 10/23/20 21:55 Dose: Not Given Documented by: Insulin Human Regular (Insulin Regular, Human 100 Units/Ml 10 Ml Vial) 23 unit SUBCUT ONETIME ONE; Protocol Stop: 10/23/20 20:47 Last Admin: 10/23/20 21:24 Dose: 23 units Documented by: Iopamidol (Iopamidol 755 Mg/Ml 500 Ml Multipack Bottle) 100 ml IVPUSH ONETIME STA Stop: 10/24/20 16:16 Last Admin: 10/24/20 16:16 Dose: 100 ml Documented by: Lisinopril (Lisinopril 10 Mg Tab) 20 mg PO ONETIME ONE Stop: 10/24/20 19:50 Last Admin: 10/24/20 19:57 Dose: 20 mg Documented by: Ondansetron HCl (Ondansetron 4 Mg/2 Ml Sdv) 4 mg IVPUSH ONETIME ONE Stop: 10/23/20 16:01 Last Admin: 10/23/20 16:21 Dose: 4 mg Documented by: - Exam Peripheral Pulses: 1+: Posterior Tibial (L), Posterior Tibial (R), Dorsalis Pedis (L), Dorsalis Pedis (R) Skin: Warm Wound/Incisions: Drainage (minimal strikethrough to inner bandaging from bilateral foot plantar ulcers sites) Physical Findings Comments:: There is a small amount of purulence noted in the drainage expressed with pressure applied about the right plantar foot ulcer. Sepsis Event Note - Evaluation Sepsis Screening Result: No Definite Risk - Focused Exam Vital Signs: Vital Signs Temp Pulse Resp BP BP Pulse Ox 10/28/20 02:47 36.8 C 95 18 99/59 L 95 10/27/20 23:55 36.3 C 90 18 90/62 95 10/27/20 19:40 35.9 C L 95 20 110/83 94 L Consult PN Assessment/Plan Procedures: Procedures ASSAY OF CK (CPK) (08/24/20) ASSAY OF LACTIC ACID (08/24/20) ASSAY OF MAGNESIUM (08/16/20) ASSAY OF PHOSPHORUS (08/16/20) ASSAY OF VANCOMYCIN (08/24/20) BLOOD CULTURE FOR BACTERIA (08/24/20) C-REACTIVE PROTEIN (08/24/20) COMPLETE CBC W/AUTO DIFF WBC (08/24/20) COMPREHEN METABOLIC PANEL (08/24/20) CT LOWER EXTREMITY W/O DYE (08/24/20) EMERGENCY DEPT VISIT (08/24/20) EXTREMITY STUDY (08/16/20) GLUCOSE BLOOD TEST (08/24/20) GLYCOSYLATED HEMOGLOBIN TEST (08/24/20) METABOLIC PANEL TOTAL CA (08/24/20) PT EVAL LOW COMPLEX 20 MIN (08/24/20) RBC SED RATE AUTOMATED (08/24/20) ROUTINE VENIPUNCTURE (08/24/20) SARS-COV-2 COVID-19 AMP PRB (08/24/20) THER/PROPH/DIAG INJ SC/IM (08/24/20) THER/PROPH/DIAG IV INF ADDON (08/24/20) THER/PROPH/DIAG IV INF INIT (09/25/20) 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 (08/24/20) TX/PROPH/DG ADDL SEQ IV INF (08/24/20) URINALYSIS AUTO W/SCOPE (08/24/20) X-RAY EXAM CHEST 1 VIEW (08/24/20) X-RAY EXAM OF FOOT (08/23/20) (1) Diabetic foot ulcer SNOMED Code(s): 567469694 Code(s): E11.621 - TYPE 2 DIABETES MELLITUS WITH FOOT ULCER; L97.509 - NON- PRESSURE CHRONIC ULCER OTH PRT UNSP FOOT W UNSP SEVERITY Current Visit: No Qualifiers: Diabetes mellitus type: type 2 Laterality: unspecified laterality Non- pressure ulcer stage: with necrosis of muscle Assessment:: Both left and right foot ulcers established previously as probing to bone and upon insertion of sterile probe this is unchanged, bone on both feet does not feel compromised and there is no give with pressure of probe. CTs are suggestive of possible chronic osteomyelitis. Problem List Initiated/Reviewed/Updated: Yes Plan: 1. Patient seen at bedside and her progress since admission and MRSA result on right foot C&S is discussed. 2. I applied pressure about all ulcer sites of both feet and again noted small amount of purulence at right foot ulcer a Saline flush on both plantar ulcers. Iodoform packing applied. Dry sterile dressing then applied. 3. Daily flushing of wounds with pressure from saline flush syringe is advised. 4. Will follow remotely and coordinate care as necessary.
[2020-10-28] MEDS: Insulin Aspart 100 Units/ML 3 ML Pen SUBCUT SCH ×2 (08:09→11:56)
[2020-10-28] MEDS: DULoxetine 30 MG Cap PO SCH (08:10)
[2020-10-28] MEDS: Gabapentin 300 MG Cap PO SCH (08:11)
[2020-10-28] MEDS: Insulin Isophane NPH, Human 100 Units/ML 10 ML Vial SUBCUT SCH (08:11)
[2020-10-28] MEDS: Lisinopril 10 MG Tab PO SCH (08:12)
[2020-10-28] MEDS: VANCOmycin 1.5 GM/300 ML 300 ML IV SCH (11:01)
--- NOTE | 2020-10-28 13:28 | PCM.DCSUM1 ---
Discharge Summary - Hospital Course Free Text/Narrative:: Patient is a 55-year-old female with a significant past medical history of poorly controlled diabetes, chronic lower neuropathy, hypertension, hyperlipidemia and obesity presented to the emergency room on 10/24/2020 with complaints of right diabetic foot ulcer changes. Of note patient has been on IV antibiotics up until 5 days ago for greater than 4 weeks status post repeat debridement/drainage courtesy of outpatient podiatry. Patient presented to the ED due to concerns about increasing redness and serosanguineous drainage from between the right first and second toes. Of note patient cannot feel any sensation in her feet due to her diabetic neuropathy and the symptoms were also accompanied with general malaise.. Patient had notified her watch assembly inspector/Dr. Phelps and he had recommended patient proceed to the ED. ED course: 1 g ertapenem given Lactate 2.5. Fluid resuscitated. 25 units of regular insulin given in light of her blood sugar being 288. Right foot CT: No acute signs of osteomyelitis. 2 poorly defined rim-enhancing fluid collection seen in subcutaneous tissue of the forefoot 1 beneath the head of the second right metatarsal and the other beta medial hallux sesamoid likely representing developing abscess/phlegmon Hospital course: Patient admitted to the general medical floor and started on ertapenem based off previous wound cultures in light of her history of chronic osteomyelitis. And poorly controlled type [address] scan: Suggest 2 poorly defined rim-enhancing fluid collection seen in subcutaneous tissue of the forefoot 1 beat the head of the second metatarsal and the other the medial hallux sesamoid. These likely represent developing abscess phlegmon. Left foot CT: Lentiform abscess under plantar soft tissue defect at the first metatarsal head level with probable chronic osteomyelitic changes in the tibial greater than fibular sesamoids. In light of above CT findings repeat wound cultures ordered which ultimately suggested MRSA and patient was started on vancomycin. Dr. Phelps of podiatry was consulted as this was also his patient in the outpatient setting. Dr. Phelps had recommended that since no fluid collection could be expressed and may not benefit from a bedside I&D/surgical intervention as this time: to continue IV antibiotics based off of cultures and daily wound dressing. Dr. Phelps provided detailed wound instructions for daily dressing and will coordinate care for outpatient wound care with " live in motion"; outpatient physical therapy. I had also discussed the case with Dr. Zuluaga of infectious disease and he recommended based off of current cultures and clinical course that patient be continued on both ertapenem and daptomycin for additional 2 weeks and followed up with infectious disease in the outpatient setting. Since patient has already has a PICC line in place, prescription for daily IV infusions of above-mentioned antibiotics was prescribed and daily wound dressings to be completed initially here at [facility] and then outpatient thereafter were also given (since it was the long holiday weekend) Patient in light of her type 2 diabetes was also recommended to increase her Lantus to 30 units twice daily and to have a more strict glycemic control. During stay pt was put on 30 units BID and tighter glycemic control was achieved. Patient was sent home with a high dose sliding scale insulin regimen; instructions were given prior to discharge. Patient advised to notify provider/return back to the ED if fever, chills, body aches, chest pain, shortness of breath, increasing erythema/discharge develop. Patient is in agreement and understood. Will follow primary care and outpatient diabetic education. Disposition: Home with home health Follow-up: PCP, podiatry and infectious disease. - Discharge Data Discharge Date: 10/28/20 Discharge Disposition: Home, W Home Health Agency 06 Condition: Stable - Referral to Home Health Date of Face to Face Encounter: 10/28/20 Reason for Homebound Status: significant pain w. ambualtion w. chronic plantar wounds Primary Care Physician: PCP None Skilled Need: INsulin admiinstration. Glycemic control. diabetic diet - Discharge Diagnosis/Problem(s) (1) Cellulitis of foot SNOMED Code(s): 133432654 ICD Code: L03.119 - CELLULITIS OF UNSPECIFIED PART OF LIMB Status: Acute (2) Diabetic foot ulcer SNOMED Code(s): 732505547 ICD Code: E11.621 - TYPE 2 DIABETES MELLITUS WITH FOOT ULCER; L97.509 - NON- PRESSURE CHRONIC ULCER OTH PRT UNSP FOOT W UNSP SEVERITY Status: Acute Qualifiers: Diabetes mellitus type: type 2 Laterality: unspecified laterality Non- pressure ulcer stage: with necrosis of muscle (3) Hyperlipemia SNOMED Code(s): 64420751 ICD Code: E78.5 - HYPERLIPIDEMIA, UNSPECIFIED Status: Chronic (4) Hypertension SNOMED Code(s): 34831611 ICD Code: I10 - ESSENTIAL (PRIMARY) HYPERTENSION Status: Chronic (5) Neuropathy SNOMED Code(s): 137520825 ICD Code: G62.9 - POLYNEUROPATHY, UNSPECIFIED Status: Chronic (6) Obesity SNOMED Code(s): 842946090, 279780798 ICD Code: E66.9 - OBESITY, UNSPECIFIED Status: Chronic - Patient Summary/Data Consults: Consultations 10/25/20 12:30 Consult to Physician [CONS] Routine - Discharge Plan Home Medications: Home Meds Gabapentin [Neurontin] 300 mg PO DAILY 08/24/20 [History] atorvaSTATin [Lipitor] 20 mg PO BEDTIME 08/24/20 [History] lisinopriL [Lisinopril] 20 mg PO DAILY 08/24/20 [History] metFORMIN HCl [Metformin HCl] 500 mg PO BIDMEALS 08/24/20 [History] DULoxetine [Cymbalta] 30 mg PO DAILY 08/26/20 [History] Acetaminophen [Tylenol] 650 mg PO Q4H PRN tablet 09/19/20 [Rx] Pantoprazole Sodium [Protonix] 40 mg PO DAILY PRN 10/24/20 [History] Acetaminophen [Tylenol] 650 mg PO Q4H PRN tablet 10/28/20 [Rx] DAPTOmycin [Cubicin] 1,000 mg IVPUSH DAILY vial 10/28/20 [Rx] Ertapenem [INVanz] 1 gm IV Q24H vial 10/28/20 [Rx] Insulin Aspart [NovoLOG] 0 unit SUBCUT TIDAC pen 10/28/20 [Rx] Insulin Isophane NPH, Human [NovoLIN N] 30 unit SQ BID 30 Days #0 10/28/20 [Rx] atorvaSTATin [Lipitor] 20 mg PO BEDTIME tablet 10/28/20 [Rx] Patient Handouts: Diabetes Mellitus and Foot Care Referrals: Zachariah Espana MD [Ordering Only Provider] - 11/17/20 2:00 pm Gallito Naidu MD [Physician] - 11/04/20 9:30 am Asael Pete DPM [Physician] - 11/11/20 10:30 am - Discharge Summary/Plan Comment DC Time >30 min.: No - Patient Data Vitals - Most Recent: Last Vital Signs Temp 97.5 F 10/28/20 11:34 Pulse 94 10/28/20 11:34 Resp 18 10/28/20 11:34 BP 102/68 10/28/20 11:34 Pulse Ox 94 L 10/28/20 11:34 Weight - Most Recent: 104.871 kg I&O - Last 24 hours: Intake & Output 10/27/20 10/28/20 10/28/20 22:59 06:59 14:59 Intake Total 1500 800 546 Output Total 2100 900 Balance -600 -100 546 Lab Results - Last 24 hrs: Laboratory Results - last 24 hr 10/23/20 10/23/20 10/27/20 Range/Units 17:47 20:31 17:30 WBC (4.0-11.0) K/uL RBC (4.30-5.90) M/uL Hgb (12.0-16.0) g/dL Hct (36.0-46.0) % MCV (80.0-98.0) fL MCH (27.0-32.0) pg MCHC (31.0-37.0) g/dL RDW Std Deviation (28.0-62.0) fl RDW Coeff of [place]lim[place] (11.0-15.0) % Plt Count (150-400) K/uL MPV (7.40-12.00) fL Neut % (Auto) (48.0-80.0) % Lymph % (Auto) (16.0-40.0) % [place] % (Auto) (0.0-15.0) % Eos % (Auto) (0.0-7.0) % Baso % (Auto) (0.0-1.5) % Neut # (Auto) (1.4-5.7) K/uL Lymph # (Auto) (0.6-2.4) K/uL [place] # (Auto) (0.0-0.8) K/uL Eos # (Auto) (0.0-0.7) K/uL Baso # (Auto) (0.0-0.1) K/uL Nucleated RBC % /100WBC Nucleated RBCs # K/uL Sodium (136-145) mmol/L Potassium (3.5-5.1) mmol/L Chloride (98-107) mmol/L Carbon Dioxide (21.0-32.0) mmol/L BUN (7.0-18.0) mg/dL Creatinine (0.6-1.0) mg/dL Est Cr Clr Drug Dosing mL/min Estimated GFR (MDRD) ml/min Glucose (74-106) mg/dL POC Glucose 274 H 285 H 207 H (70-99) mg/dL Calcium (8.5-10.1) mg/dL Vancomycin Trough (5.0-10.0) ug/mL 10/27/20 10/28/20 10/28/20 Range/Units 22:14 06:05 06:05 WBC 8.92 (4.0-11.0) K/uL RBC 4.27 L (4.30-5.90) M/uL Hgb 13.1 (12.0-16.0) g/dL Hct 38.9 (36.0-46.0) % MCV 91.1 (80.0-98.0) fL MCH 30.7 (27.0-32.0) pg MCHC 33.7 (31.0-37.0) g/dL RDW Std Deviation 41.3 (28.0-62.0) fl RDW Coeff of [place]limp[place] 13 (11.0-15.0) % Plt Count 283 (150-400) K/uL MPV 10.40 (7.40-12.00) fL Neut % (Auto) 60.4 (48.0-80.0) % Lymph % (Auto) 26.5 (16.0-40.0) % [place] % (Auto) 10.2 (0.0-15.0) % Eos % (Auto) 2.6 (0.0-7.0) % Baso % (Auto) 0.3 (0.0-1.5) % Neut # (Auto) 5.4 (1.4-5.7) K/uL Lymph # (Auto) 2.4 (0.6-2.4) K/uL [place] # (Auto) 0.9 H (0.0-0.8) K/uL Eos # (Auto) 0.2 (0.0-0.7) K/uL Baso # (Auto) 0.0 (0.0-0.1) K/uL Nucleated RBC % 0.0 /100WBC Nucleated RBCs # 0 K/uL Sodium 138 (136-145) mmol/L Potassium 3.8 (3.5-5.1) mmol/L Chloride 102 (98-107) mmol/L Carbon Dioxide 26.5 (21.0-32.0) mmol/L BUN 17 (7.0-18.0) mg/dL Creatinine 0.8 (0.6-1.0) mg/dL Est Cr Clr Drug Dosing 70.54 mL/min Estimated GFR (MDRD) > 60.0 ml/min Glucose 215 H (74-106) mg/dL POC Glucose 228 H (70-99) mg/dL Calcium 9.1 (8.5-10.1) mg/dL Vancomycin Trough (5.0-10.0) ug/mL 10/28/20 10/28/20 10/28/20 Range/Units 06:27 09:35 11:17 WBC (4.0-11.0) K/uL RBC (4.30-5.90) M/uL Hgb (12.0-16.0) g/dL Hct (36.0-46.0) % MCV (80.0-98.0) fL MCH (27.0-32.0) pg MCHC (31.0-37.0) g/dL RDW Std Deviation (28.0-62.0) fl RDW Coeff of [place]limpia (11.0-15.0) % Plt Count (150-400) K/uL MPV (7.40-12.00) fL Neut % (Auto) (48.0-80.0) % Lymph % (Auto) (16.0-40.0) % [place] % (Auto) (0.0-15.0) % Eos % (Auto) (0.0-7.0) % Baso % (Auto) (0.0-1.5) % Neut # (Auto) (1.4-5.7) K/uL Lymph # (Auto) (0.6-2.4) K/uL [place] # (Auto) (0.0-0.8) K/uL Eos # (Auto) (0.0-0.7) K/uL Baso # (Auto) (0.0-0.1) K/uL Nucleated RBC % /100WBC Nucleated RBCs # K/uL Sodium (136-145) mmol/L Potassium (3.5-5.1) mmol/L Chloride (98-107) mmol/L Carbon Dioxide (21.0-32.0) mmol/L BUN (7.0-18.0) mg/dL Creatinine (0.6-1.0) mg/dL Est Cr Clr Drug Dosing mL/min Estimated GFR (MDRD) ml/min Glucose (74-106) mg/dL POC Glucose 211 H 277 H (70-99) mg/dL Calcium (8.5-10.1) mg/dL Vancomycin Trough 14.2 H (5.0-10.0) ug/mL ТАТЬЯНА Results - Last 24 hrs: Microbiology 10/23/20 15:39 Aerobic Blood Culture - Preliminary Blood - Venous - Lab Draw NO GROWTH AFTER 4 DAYS Anaerobic Blood Culture - Preliminary NO GROWTH AFTER 4 DAYS 10/23/20 15:25 Aerobic Blood Culture - Preliminary Blood - Venous NO GROWTH AFTER 4 DAYS Anaerobic Blood Culture - Preliminary NO GROWTH AFTER 4 DAYS 10/25/20 11:00 Wound Culture - Final Foot, Left (Mrsa) Staphylococcus Aureus Skin Ronit Med Orders - Current: Current Medications Acetaminophen (Acetaminophen 325 Mg Tab) 650 mg PO Q4H PRN PRN Reason: Pain (Mild 1-3)/fever Last Admin: 10/24/20 19:58 Dose: 650 mg Documented by: Albuterol/Ipratropium (Albuterol/Ipratropium 3.0-0.5 Mg/3 Ml Neb Soln) 3 ml NEB Q4HRRT PRN PRN Reason: Shortness Of Breath/wheezing Atorvastatin Calcium (Atorvastatin 20 Mg Tab) 20 mg PO BEDTIME [facility] Last Admin: 10/27/20 22:18 Dose: 20 mg Documented by: Dextrose/Water (50% Dextrose In Water 50 Ml Syringe) 50 ml IV ASDIRECTED PRN PRN Reason: Hypoglycemia Dextrose/Water (50% Dextrose In Water 50 Ml Syringe) 50 ml IV ASDIRECTED PRN PRN Reason: Hypoglycemia Duloxetine HCl (Duloxetine 30 Mg Cap) 30 mg PO DAILY [facility] Last Admin: 10/28/20 08:10 Dose: 30 mg Documented by: Enoxaparin Sodium (Enoxaparin 40 Mg/0.4 Ml Syringe) 40 mg SUBCUT Q24H [facility] Last Admin: 10/28/20 02:54 Dose: 40 mg Documented by: Gabapentin (Gabapentin 300 Mg Cap) 300 mg PO DAILY [facility] Last Admin: 10/28/20 08:11 Dose: 300 mg Documented by: Glucagon (Glucagon,Human Recombinant 1 Mg Vial) 1 mg IM ASDIRECTED PRN PRN Reason: Hypoglycemia Ertapenem 1 gm/ Sodium (Chloride) 50 mls @ 100 mls/hr IV Q24H [facility] Last Admin: 10/27/20 15:34 Dose: 100 mls/hr Documented by: Daptomycin 1,000 mg/ Sodium (Chloride) 20 mls @ 600 mls/hr IVPUSH DAILY [facility] Insulin Aspart (Insulin Aspart 100 Units/Ml 3 Ml Pen) 0 unit SUBCUT TIDAC [facility]; Protocol Last Admin: 10/28/20 11:56 Dose: 9 units Documented by: Insulin Human NPH (Insulin Isophane Nph, Human 100 Units/Ml 10 Ml Vial) 30 unit SUBCUT BID [facility] Last Admin: 10/28/20 08:11 Dose: 30 units Documented by: Lisinopril (Lisinopril 10 Mg Tab) 20 mg PO DAILY [facility] Last Admin: 10/28/20 08:12 Dose: 20 mg Documented by: Pantoprazole Sodium (Pantoprazole 40 Mg Tab.Cr) 40 mg PO ACBREAKFAST [facility] Last Admin: 10/28/20 06:30 Dose: 40 mg Documented by: Discontinued Medications Atorvastatin Calcium (Atorvastatin 40 Mg Tab) 20 mg PO BEDTIME [facility] Last Admin: 10/25/20 20:13 Dose: 20 mg Documented by: Dextrose/Water (50% Dextrose In Water 50 Ml Syringe) 50 ml IV ASDIRECTED PRN PRN Reason: Hypoglycemia Dextrose/Water (50% Dextrose In Water 50 Ml Syringe) 50 ml IV ASDIRECTED PRN PRN Reason: Hypoglycemia Ertapenem (Ertapenem 1 Gm Vial) Confirm Administered Dose 1 gm .ROUTE .[facility]-MED ONE Stop: 10/23/20 16:05 Last Admin: 10/23/20 16:25 Dose: Not Given Documented by: Glucagon (Glucagon,Human Recombinant 1 Mg Vial) 1 mg IM ASDIRECTED PRN PRN Reason: Hypoglycemia Glucagon (Glucagon,Human Recombinant 1 Mg Vial) 1 mg IM ASDIRECTED PRN PRN Reason: Hypoglycemia Glucagon (Glucagon,Human Recombinant 1 Mg Vial) 1 mg IM ASDIRECTED PRN PRN Reason: Hypoglycemia Sodium Chloride (Normal Saline) 1,000 mls @ 999 mls/hr IV .BOLUS ONE Stop: 10/23/20 16:11 Last Admin: 10/23/20 15:42 Dose: 999 mls/hr Documented by: Vancomycin HCl 2 gm/ Premix 400 mls @ 200 mls/hr IV STAT ONE Stop: 10/23/20 17:13 Last Admin: 10/23/20 16:21 Dose: Not Given Documented by: Ertapenem 1 gm/ Sodium (Chloride) 50 mls @ 100 mls/hr IV ONETIME ONE Stop: 10/23/20 16:18 Last Admin: 10/23/20 16:22 Dose: 100 mls/hr Documented by: Sodium Chloride (Normal Saline) Confirm Administered Dose 50 mls @ as directed .ROUTE .STK-MED ONE Stop: 10/23/20 16:06 Last Admin: 10/23/20 16:25 Dose: Not Given Documented by: Sodium Chloride (Normal Saline) 1,000 mls @ 999 mls/hr IV .BOLUS ONE Stop: 10/23/20 17:26 Last Admin: 10/23/20 17:13 Dose: 999 mls/hr Documented by: Ertapenem 1 gm/ Sodium (Chloride) 50 mls @ 100 mls/hr IV Q24H [facility] Vancomycin HCl (Vancomycin 1.5 Gm/300 Ml) 300 mls @ 200 mls/hr IV Q12H [facility] Last Admin: 10/28/20 11:01 Dose: Not Given Documented by: Insulin Aspart (Insulin Aspart 100 Units/Ml 3 Ml Pen) 5 unit SUBCUT ONETIME ONE Stop: 10/25/20 17:58 Last Admin: 10/25/20 18:04 Dose: 5 units Documented by: Insulin Glargine (Insulin Glargine,Human Rec. Analog 100 Units/Ml 3 Ml Pen) 25 units SUBCUT BEDTIME ONE Stop: 10/24/20 22:04 Last Admin: 10/24/20 21:32 Dose: 25 units Documented by: Insulin Glargine (Insulin Glargine,Human Rec. Analog 100 Units/Ml 3 Ml Pen) Confirm Administered Dose 300 units .ROUTE .STK-MED ONE Stop: 10/23/20 23:22 Last Admin: 10/24/20 00:13 Dose: Not Given Documented by: Insulin Human NPH (Insulin Isophane Nph, Human 100 Units/Ml 10 Ml Vial) 20 unit SUBCUT BID [facility] Last Admin: 10/25/20 08:01 Dose: 20 units Documented by: Insulin Human NPH (Insulin Isophane Nph, Human 100 Units/Ml 10 Ml Vial) 25 unit SUBCUT BID [facility] Last Admin: 10/26/20 08:04 Dose: 25 unit Documented by: Insulin Human Regular (Insulin Regular, Human 100 Units/Ml 10 Ml Vial) 25 unit SUBCUT ONETIME ONE; Protocol Stop: 10/23/20 17:50 Last Admin: 10/23/20 18:00 Dose: 25 unit Documented by: Insulin Human Regular (Insulin Regular, Human 100 Units/Ml 10 Ml Vial) 25 unit SUBCUT ONETIME ONE; Protocol Stop: 10/23/20 20:36 Last Admin: 10/23/20 21:55 Dose: Not Given Documented by: Insulin Human Regular (Insulin Regular, Human 100 Units/Ml 10 Ml Vial) 23 unit SUBCUT ONETIME ONE; Protocol Stop: 10/23/20 20:47 Last Admin: 10/23/20 21:24 Dose: 23 units Documented by: Iopamidol (Iopamidol 755 Mg/Ml 500 Ml Multipack Bottle) 100 ml IVPUSH ONETIME STA Stop: 10/24/20 16:16 Last Admin: 10/24/20 16:16 Dose: 100 ml Documented by: Lisinopril (Lisinopril 10 Mg Tab) 20 mg PO ONETIME ONE Stop: 10/24/20 19:50 Last Admin: 10/24/20 19:57 Dose: 20 mg Documented by: Ondansetron HCl (Ondansetron 4 Mg/2 Ml Sdv) 4 mg IVPUSH ONETIME ONE Stop: 10/23/20 16:01 Last Admin: 10/23/20 16:21 Dose: 4 mg Documented by: Vancomycin HCl (Pharmacy To Dose - Vancomycin) 1 dose .XX ASDIRECTED [facility]
[2020-10-28] MEDS ORDERED: DAPTOMYCIN IVPUSH SCH (14:00)
[2020-10-28] MEDS ORDERED: DAPTOmycin 1,000 MG in Sodium Chloride 0.9% 20 ML IVPUSH SCH ×2 (14:00→15:30)
[2020-10-28] MEDS ORDERED: WATER FOR INJECTION IVPUSH SCH (14:00)
[2020-10-28] MEDS ORDERED: STERILE IVPUSH SCH (14:00)
--- NOTE | 2020-10-28 14:06 | PCM.SN.2 ---
- Free Text/Narrative Note: Daily Dressing care : 1. Flush both feet plantar ulcers with saline flush syringe and moderate pressure. Insert syringe directly into ulcer site. 2. Use sterile pickup or similar instrument to lightly insert 1/4 inch iodoform packing to each foot plantar ulcer. 2 cm of packing should exit each plantar ulcer site. 3. Cleanse the superficial ulcer on right foot dorsum with saline soaked gauze. 4. Cover ulcer sites with dry 4 x 4 gauze and secure lightly with Kerlix roll and tape. Wound care instructions per Dr Mattie Chen
[2020-10-28] MEDS: Ertapenem 1 GM in Sodium Chloride 0.9% 50 ML IV SCH (15:24)
== END 2020-10-28 16:30 | disposition home health service (06) | DRG 380 ==
LOC: MW.ED 14:22 → MW.MS 10-24 00:54 → EEVIPCON 10-26 11:15 → OBSVTOIN 10-26 11:15 → MW.MS 10-26 11:16
PROVIDERS: ADMIT Student in an Organized Health Care Education/Training Program; ATTEND Student in an Organized Health Care Education/Training Program
DX: E11.621 Type 2 diabetes mellitus with foot ulcer (principal); L97.513 Non-pressure chronic ulcer of other part of right foot with necrosis of muscle; L03.115 Cellulitis of right lower limb; E78.5 Hyperlipidemia, unspecified; I10 Essential (primary) hypertension; E11.40 Type 2 diabetes mellitus with diabetic neuropathy, unspecified; E66.9 Obesity, unspecified; H54.7 Unspecified visual loss; E78.00 Pure hypercholesterolemia, unspecified; M19.011 Primary osteoarthritis, right shoulder; F32.9 Major depressive disorder, single episode, unspecified; Z20.822 Contact with and (suspected) exposure to COVID-19; E11.65 Type 2 diabetes mellitus with hyperglycemia; Z79.899 Other long term (current) drug therapy; Z79.4 Long term (current) use of insulin; Z90.49 Acquired absence of other specified parts of digestive tract; Z98.890 Other specified postprocedural states; B95.62 Methicillin resistant Staphylococcus aureus infection as the cause of diseases classified elsewhere
CPT/HCPCS: 36415; 73701-26-LT; 73701-26-RT; 73701-LT; 73701-RT; 80048; 80053; 80202; 81001; 82947; 83605; 83615; 85025; 85610; 86140; 87040; 87070; 87077; 87186; 96365; 96372; 96375; 96376; 99284; 99285-25; A9270-GY; G0378; J0878; J1335; J1650; J1815-GY; J2405; J3370; J7030; Q9967; U0002

== ENCOUNTER 2020-11-04 11:07 | Emergency (ER) | payer BC | END 2020-11-04 12:18 | disposition left against medical advice (07) | LOC: MW.ED 11:07 | DX: Z53.21 Procedure and treatment not carried out due to patient leaving prior to being seen by health care provider (principal) ==

== ENCOUNTER 2020-12-08 20:39 | Inpatient (IN) | payer BC, MEDICAID ==
[2020-12-08] MEDS ORDERED: Morphine 2 MG/ML SYRINGE IVPUSH PRN (21:11)
[2020-12-08] MEDS ORDERED: Ondansetron 4 MG/2 ML SDV IVPUSH PRN (21:11)
[2020-12-08] MEDS ORDERED: Albuterol/Ipratropium 3.0-0.5 MG/3 ML Neb Soln NEB PRN (21:11)
[2020-12-08] MEDS ORDERED: Lactated Ringers 1,000 ML IV ONE (21:11)
[2020-12-08] MEDS ORDERED: Glucagon,Human Recombinant 1 MG Vial IM PRN ×2 (21:45→23:37)
[2020-12-08] MEDS ORDERED: 50% Dextrose in Water 50 ML Syringe IVPUSH PRN ×2 (21:45→23:37)
--- NOTE | 2020-12-08 21:46 | PCM.HP.2 ---
H&P History of Present Illness - General Date of Service: 12/08/20 Admit Problem/Dx: Admission Diagnosis/Problem Admission Diagnosis/Problem Diabetic foot infection - History of Present Illness Initial Comments - Free Text/Narative: Patient is a four 55-year-old female with a significant past medical history of poorly controlled diabetes, chronic lower neuropathy, hypertension, hyperlipidemia and obesity who was sent over by her distribution operation supervisor due to concerns of worsening left foot diabetic foot ulcer. Patient has been treated for diabetic foot ulcers over the past several months with prolonged course of IV antibiotics. Currently she is getting IV antibiotic therapy and has still 5 more days of IV therapy left on outpatient basis. Patient last admission stool was due to diabetic foot ulcer in her right foot which now seems to have healed but patient states that over last 1 month her left foot has been acting up. Patient states that she saw her distribution operation supervisor on outpatient basis whom was able to do some packing and collect wound cultures. Based on that IV antibiotic therapy was further prolonged for 2 more weeks in addition to the previous 4 weeks. Patient was towards the end of her IV antibiotic therapy as mentioned above she had 5 more days of antibiotic therapy left. Patient states that yesterday her distribution operation supervisor had packed her left foot wound on plantar aspect and overnight the packing came through the dorsal aspect of her food. Patient has a direct through and through tunnel from dorsal to plantar side of her left foot. Patient also states that the foot is getting increasingly red and last 2 days. The wound cultures from yesterday are still pending. Patient states otherwise she has been doing well and her blood sugars have been under much better control . Patient's distribution operation supervisor Dr. Pete personally called me requesting an admission for IV antibiotics and possible I&D versus surgery. Patient was admitted for further management - Related Data Allergies/Adverse Reactions: Allergies Allergy/AdvReac Type Severity Reaction Status Date / Time No Known Allergies Allergy Verified 10/24/20 01:56 Home Medications: Home Meds Gabapentin [Neurontin] 300 mg PO TID 08/24/20 [History] lisinopriL [Lisinopril] 10 mg PO DAILY 08/24/20 [History] metFORMIN HCl [Metformin HCl] 500 mg PO BIDMEALS 08/24/20 [History] DULoxetine [Cymbalta] 30 mg PO DAILY 08/26/20 [History] Pantoprazole Sodium [Protonix] 40 mg PO DAILY PRN 05/24/21 [History] Acetaminophen [Tylenol] 650 mg PO Q4H PRN tablet 10/28/20 [Rx] DAPTOmycin [Cubicin] 1,000 mg IVPUSH DAILY vial 10/28/20 [Rx] Ertapenem [INVanz] 1 gm IV Q24H vial 10/28/20 [Rx] Insulin Aspart [NovoLOG] 0 unit SUBCUT TIDAC pen 10/28/20 [Rx] Insulin Isophane NPH, Human [NovoLIN N] 30 unit SQ BID 30 Days #0 10/28/20 [Rx] atorvaSTATin [Lipitor] 20 mg PO BEDTIME tablet 10/28/20 [Rx] Insulin Regular, Human [NovoLIN R] 12/08/20 [History] Past Medical History HEENT History: Reports: Impaired Vision Other HEENT History: patient wears eyeglasses Cardiovascular History: Reports: High Cholesterol, Hypertension Respiratory History: Reports: Bronchitis, Recurrent Gastrointestinal History: Reports: Pancreatitis Genitourinary History: Reports: Other (See Below) Other Genitourinary History: Major Kidney Infections [employer]ED[employer]ER History: Reports: Musculoskeletal History: Reports: Arthritis, Other (See Below) Other Musculoskeletal History: lower back arthritis, R shoulder arthritis' diabetic foot Neurological History: Reports: Neuropathy, Diabetic Psychiatric History: Reports: Depression Endocrine/Metabolic History: Reports: Diabetes, Type II Dermatologic History: Reports: Other (See Below) Other Dermatologic History: diabetic foot - Infectious Disease History Infectious Disease History: Reports: Chicken Pox, Measles - Past Surgical History HEENT Surgical History: Reports: None Cardiovascular Surgical History: Reports: None Respiratory Surgical History: Reports: None GI Surgical History: Reports: Cholecystectomy Female Surgical History: Reports: None Endocrine Surgical History: Reports: None Neurological Surgical History: Reports: None Musculoskeletal Surgical History: Reports: Shoulder Surgery Social & Family History - Family History Family Medical History: No Pertinent Family History - Caffeine Use Caffeine Use: Reports: Tea Other Caffeine Use: flavored water H&P Review of Systems - Review of Systems: Review Of Systems: See Below General: Denies: Fever, Chills, Malaise, Weakness Pulmonary: Denies: Shortness of Breath, Wheezing, Pleuritic Chest Pain Cardiovascular: Denies: Chest Pain, Palpitations, Dyspnea on Exertion Gastrointestinal: Denies: Abdominal Pain, Anorexia, Black Stool Genitourinary: Denies: Frequency, Burning, Pain, Urgency Musculoskeletal: Reports: Leg Pain, Foot Pain, Joint Swelling. Denies: Neck Pain, Shoulder Pain, Arm Pain, Muscle Pain, Muscle Stiffness Skin: Denies: Cyanosis, Jaundice, Mottled, Pallor Psychiatric: Denies: Confusion, Depression, Mood Lability, Anxiety Neurological: Denies: Confusion, Dizziness, Headache Exam - Exam Exam: See Below - Exam General: Alert, Oriented Neck: Supple, Trachea Midline Lungs: Clear to Auscultation, Normal Respiratory Effort Cardiovascular: Regular Rate, Regular Rhythm, Normal S1, Normal S2 GI/Abdominal Exam: Normal Bowel Sounds, Soft, Non-Tender Extremities: No Pedal Edema, Joint Swelling, Increased Warmth, Redness, Other (Diabetic foot ulcer noted on plantar aspect of the left foot near the base of the greater toe tunneling all the way to the dorsal aspect of the foot) Peripheral Pulses: 2+: Dorsalis Pedis (L), Dorsalis Pedis (R) Skin: Warm, Wound - Patient Data Result Diagrams: 12/08/20 22:05 12/08/20 22:05 Problem List Initiated/Reviewed/Updated: Yes Orders Last 24hrs: Active Orders 24 hr Category Date Time Status Patient Status [ADT] Routine ADT 12/08/20 21:11 Active Ambulate [RC] ASDIRECTED Care 12/08/20 21:11 Active Antiembolic Devices [RC] PER UNIT ROUTINE Care 12/08/20 21:14 Active Oxygen Therapy [RC] PRN Care 12/08/20 21:11 Active Pulse Oximetry [RC] PRN Care 12/08/20 21:13 Active RT Aerosol Therapy [RC] ASDIRECTED Care 12/08/20 21:15 Active VTE/DVT Education [RC] PER UNIT ROUTINE Care 12/08/20 21:11 Active Vital Signs [RC] Q4H Care 12/08/20 21:11 Active [employer] Diet [DIET] Diet 12/08/20 Dinner Active BASIC METABOLIC PANEL,BMP [CHEM] Routine Lab 12/08/20 21:42 Ordered BMP [BASIC METABOLIC PANEL,BMP] [CHEM] AM Lab 12/09/20 05:11 Ordered CBC WITH AUTO DIFF [HEME] AM Lab 12/09/20 05:11 Ordered CBC WITH AUTO DIFF [HEME] Routine Lab 12/08/20 21:42 Ordered CORONAVIRUS COVID-19 YOUNG [MOLEC] Stat Lab 12/08/20 21:03 Received Acetaminophen [TylenoL] Med 12/08/20 21:11 Active 650 mg PO Q4H PRN Albuterol/Ipratropium [DuoNeb 3.0-0.5 MG/3 ML] Med 12/08/20 21:11 Active 3 ml NEB Q4HRRT PRN Dextrose 50% in Water Med 12/08/20 21:45 Ordered 50 ml IVPUSH ASDIRECTED PRN Glucagon,Human Recombinant [GlucaGen] Med 12/08/20 21:45 Ordered 1 mg IM ASDIRECTED PRN Heparin Sodium Med 12/08/20 21:15 Active 5,000 units SUBCUT Q8H Insulin Aspart [NovoLOG] Med 12/09/20 07:30 Ordered See Protocol SUBCUT TIDAC Lactated Ringers [Ringers, Lactated] 1,000 ml Med 12/08/20 21:11 Active IV BOLUS Morphine Med 12/08/20 21:11 Active 1 mg IVPUSH Q4H PRN Ondansetron [Zofran] Med 12/08/20 21:11 Active 4 mg IVPUSH Q4H PRN Pantoprazole [ProTONIX IV] 40 mg Med 12/08/20 21:15 Active Sodium Chloride 0.9% [Normal Saline] 10 ml IV Q24H Pharmacy to Dose - Vancomycin Med 12/08/20 21:45 Ordered 1 dose .XX ASDIRECTED Piperacillin/Tazobactam [Piperacil-Tazobact] 3.375 gm Med 12/08/20 21:45 Ordered Sodium Chloride 0.9% [Normal Saline] 50 ml IV Q8H Sequential Compression Device [OM.PC] Per Unit Routine Oth 12/08/20 21:13 Ordered Medication Orders Acetaminophen (Acetaminophen 325 Mg Tab) 650 mg PO Q4H PRN PRN Reason: Pain (Mild 1-3)/fever Albuterol/Ipratropium (Albuterol/Ipratropium 3.0-0.5 Mg/3 Ml Neb Soln) 3 ml NEB Q4HRRT PRN PRN Reason: Shortness Of Breath/wheezing Heparin Sodium (Porcine) (Heparin Sodium 5,000 Units/Ml Vial) 5,000 units SUBCUT Q8H МАРИНА Lactated Ringer's (Ringers, Lactated) 1,000 mls @ 999 mls/hr IV BOLUS ONE Stop: 12/08/20 22:11 Pantoprazole Sodium 40 mg/ (Sodium Chloride) 10 mls @ 300 mls/hr IV Q24H МАРИНА Piperacillin Sod/Tazobactam (Sod 3.375 gm/ Sodium Chloride) 50 mls @ 100 mls/hr IV Q8H МАРИНА Morphine Sulfate (Morphine 2 Mg/Ml Syringe) 1 mg IVPUSH Q4H PRN PRN Reason: Pain (severe 7-10) Stop: 12/09/20 21:14 Ondansetron HCl (Ondansetron 4 Mg/2 Ml Sdv) 4 mg IVPUSH Q4H PRN PRN Reason: Nausea/Vomiting Vancomycin HCl (Pharmacy To Dose - Vancomycin) 1 dose .XX ASDIRECTED [facility] Assessment/Plan Comment:: Patient is a 55-year-old female admitted for infected diabetic foot ulcer of her left foot Start broad-spectrum antibiotics Culture has already been obtained by patient's distribution operation supervisor yesterday, will follow up on the results Will obtain MRI of left foot without contrast for further assessment of the wound For pain control start IV morphine as needed Continue gabapentin for neuropathy Sliding scale insulin for diabetes, DuoNebs as needed for shortness of breath Resume home meds as appropriate We will keep patient n.p.o. over midnight in case of any surgical plans for tomorrow
[2020-12-08] MEDS: Heparin Sodium 5,000 Units/ML Vial SUBCUT SCH (22:29)
[2020-12-08] MEDS ORDERED: VANCOmycin 1.5 GM/300 ML 1.5 GM in Premix Bag 1 BAG IV ONE (22:30)
[2020-12-08 22:31] LABS: CARBON DIOXIDE,CO2 30.1 mmol/L (21.0-32.0); POTASSIUM,K 3.9 mmol/L (3.5-5.1)
[2020-12-08] MEDS: Pantoprazole 40 MG in Sodium Chloride 0.9% 10 ML IV SCH (22:45)
[2020-12-08] MEDS: Piperacillin/Tazobactam 3.375 GM in Sodium Chloride 0.9% 50 ML IV SCH (22:50)
[2020-12-08] MEDS ORDERED: Acetaminophen 325 MG Tab PO PRN (23:37)
[2020-12-08] MEDS ORDERED: Pantoprazole 40 MG Tab.CR PO PRN (23:37)
[2020-12-09] MEDS: Piperacillin/Tazobactam 3.375 GM in Sodium Chloride 0.9% 50 ML IV SCH (05:11)
[2020-12-09] MEDS: Heparin Sodium 5,000 Units/ML Vial SUBCUT SCH ×3 (05:15→21:28)
[2020-12-09] MEDS: Gabapentin 300 MG Cap PO SCH ×3 (05:16→21:29)
[2020-12-09 06:29] LABS: BLOOD UREA NITROGEN,BUN 15 mg/dL (7.0-18.0); CARBON DIOXIDE,CO2 29.4 mmol/L (21.0-32.0); CHLORIDE,CL 102 mmol/L (98-107); GLUCOSE RANDOM 138 mg/dL (74-106); POTASSIUM,K 3.7 mmol/L (3.5-5.1); SODIUM,NA 140 mmol/L (136-145)
[2020-12-09] MEDS: Insulin Aspart 100 Units/ML 3 ML Pen SUBCUT SCH ×3 (07:27→17:12)
[2020-12-09] MEDS ORDERED: Piperacillin/Tazobactam 4.5 GM in Sodium Chloride 0.9% 100 ML IV SCH (08:00)
[2020-12-09] MEDS: DULoxetine 30 MG Cap PO SCH (08:38)
[2020-12-09] MEDS: Lisinopril 10 MG Tab PO SCH (08:38)
[2020-12-09] MEDS: Insulin Isophane NPH, Human 100 Units/ML 10 ML Vial SUBCUT SCH ×2 (08:52→21:41)
[2020-12-09] MEDS: Piperacillin/Tazobactam 4.5 GM in Sodium Chloride 0.9% 100 ML IV SCH ×3 (11:32→23:16)
--- NOTE | 2020-12-09 11:38 | MR ---
HISTORY: Swelling and drainage. Suspected osteomyelitis. TECHNIQUE: MRI left foot without contrast. COMPARISON: Foot CT 10/24/2020. FINDINGS: Wounds in the medial forefoot plantar and medial to the 1st MTP joint. Medial and plantar wounds are connected by a thin STIR hyperintense likely fluid-filled tract. 2.3 x 0.7 x 2.8 cm complex fluid collection are collapsed thick-walled cavity in the soft tissues plantar to the 1st MTP joint associated with the wounds. No other fluid collection. Effusion of the 1st MTP joint. Marrow edema in the medial hallux sesamoid with patchy T1 hypointense marrow signal. No marrow replacement elsewhere. Mild periarticular marrow edema in the head of the 1st metatarsal and base of the 1st proximal phalanx. The other MTP joints are maintained. Joint spaces of the midfoot are maintained. Ankle and subtalar joints are maintained. Nodular hypointense thickening of the plantar aponeurosis in the midfoot. Atrophy of the intrinsic foot musculature with intramuscular edema. Mild subcutaneous edema. Lisfranc ligament is intact. No fracture. IMPRESSION: 1. Forefoot wounds medial and plantar to the 1st MTP joint connected by a tract. 2.3 x 0.7 x 2.8 cm complex fluid collection or collapsed thick-walled cavity in the soft tissues plantar to the 1st MTP joint associated with the wounds. 2. Osteomyelitis of the medial hallux sesamoid. 3. First MTP joint effusion. Septic arthritis is not excluded given proximity of the wounds and medial sesamoid osteomyelitis. 4. Plantar fascial fibromatosis. Dictated by Micah Aden MD @ 12/09/2020 11:36:[address] Micah Aden @ Dec 09 2020 11:36AM
[2020-12-09] MEDS: VANCOmycin 1.5 GM/300 ML 1.5 GM in Premix Bag 1 BAG IV SCH (12:25)
--- NOTE | 2020-12-09 13:57 | PCM.PN ---
- General Info Date of Service: 12/09/20 Admission Dx/Problem (Free Text): Admission Diagnosis/Problem Admission Diagnosis/Problem Diabetic foot infection Subjective Update: Patient seen at bedside, no acute distress Functional Status: Reports: Tolerating Diet, Urinating - Review of Systems General: Denies: Fever, Weakness Pulmonary: Denies: Shortness of Breath, Pleuritic Chest Pain Cardiovascular: Denies: Chest Pain, Palpitations, Dyspnea on Exertion Gastrointestinal: Denies: Abdominal Pain, Constipation, Decreased Appetite Genitourinary: Denies: Dysuria, Frequency, Burning Musculoskeletal: Reports: Foot Pain, Joint Pain. Denies: Neck Pain, Shoulder Pain, Arm Pain Skin: Reports: Other (Diabetic foot ulcer). Denies: Cyanosis, Jaundice, Mottled - Patient Data Vitals - Most Recent: Last Vital Signs Temp 35.6 C L 12/09/20 11:49 Pulse 75 12/09/20 11:49 Resp 16 12/09/20 11:49 BP 113/78 12/09/20 11:49 Pulse Ox 94 L 12/09/20 11:49 Weight - Most Recent: 104.145 kg I&O - Last 24 Hours: Intake & Output 12/08/20 12/09/20 12/09/20 22:59 06:59 14:59 Intake Total 1860 Output Total 0 Balance 1860 Lab Results Last 24 Hours: Laboratory Results - last 24 hr 12/08/20 12/08/20 12/08/20 Range/Units 21:03 22:05 22:05 WBC 11.43 H (4.0-11.0) K/uL RBC 4.60 (4.30-5.90) M/uL Hgb 13.8 (12.0-16.0) g/dL Hct 41.3 (36.0-46.0) % MCV 89.8 (80.0-98.0) fL MCH 30.0 (27.0-32.0) pg MCHC 33.4 (31.0-37.0) g/dL RDW Std Deviation 44.0 (28.0-62.0) fl RDW Coeff of Olimpia 13 (11.0-15.0) % Plt Count 275 (150-400) K/uL MPV 10.70 (7.40-12.00) fL Neut % (Auto) 57.5 (48.0-80.0) % Lymph % (Auto) 32.1 (16.0-40.0) % Phillips % (Auto) 8.0 (0.0-15.0) % Eos % (Auto) 2.1 (0.0-7.0) % Baso % (Auto) 0.3 (0.0-1.5) % Neut # (Auto) 6.6 H (1.4-5.7) K/uL Lymph # (Auto) 3.7 H (0.6-2.4) K/uL Phillips # (Auto) 0.9 H (0.0-0.8) K/uL Eos # (Auto) 0.2 (0.0-0.7) K/uL Baso # (Auto) 0.0 (0.0-0.1) K/uL Nucleated RBC % 0.0 /100WBC Nucleated RBCs # 0 K/uL Sodium 139 (136-145) mmol/L Potassium 3.9 (3.5-5.1) mmol/L Chloride 102 (98-107) mmol/L Carbon Dioxide 30.1 (21.0-32.0) mmol/L BUN 17 (7.0-18.0) mg/dL Creatinine 1.0 (0.6-1.0) mg/dL Est Cr Clr Drug Dosing 56.53 mL/min Estimated GFR (MDRD) 57.4 ml/min Glucose 124 H (74-106) mg/dL POC Glucose (70-99) mg/dL Calcium 9.8 (8.5-10.1) mg/dL SARS-CoV-2 RNA (YOUNG) NEGATIVE (NEGATIVE) 12/08/20 12/09/20 12/09/20 Range/Units 22:58 05:40 05:40 WBC 8.10 (4.0-11.0) K/uL RBC 4.28 L (4.30-5.90) M/uL Hgb 12.7 (12.0-16.0) g/dL Hct 38.4 (36.0-46.0) % MCV 89.7 (80.0-98.0) fL MCH 29.7 (27.0-32.0) pg MCHC 33.1 (31.0-37.0) g/dL RDW Std Deviation 44.4 (28.0-62.0) fl RDW Coeff of Olimpia 14 (11.0-15.0) % Plt Count 259 (150-400) K/uL MPV 10.70 (7.40-12.00) fL Neut % (Auto) 47.6 L (48.0-80.0) % Lymph % (Auto) 38.8 (16.0-40.0) % Phillips % (Auto) 9.4 (0.0-15.0) % Eos % (Auto) 3.8 (0.0-7.0) % Baso % (Auto) 0.4 (0.0-1.5) % Neut # (Auto) 3.9 (1.4-5.7) K/uL Lymph # (Auto) 3.1 H (0.6-2.4) K/uL Phillips # (Auto) 0.8 (0.0-0.8) K/uL Eos # (Auto) 0.3 (0.0-0.7) K/uL Baso # (Auto) 0.0 (0.0-0.1) K/uL Nucleated RBC % 0.0 /100WBC Nucleated RBCs # 0 K/uL Sodium 140 (136-145) mmol/L Potassium 3.7 (3.5-5.1) mmol/L Chloride 102 (98-107) mmol/L Carbon Dioxide 29.4 (21.0-32.0) mmol/L BUN 15 (7.0-18.0) mg/dL Creatinine 0.9 (0.6-1.0) mg/dL Est Cr Clr Drug Dosing 62.80 mL/min Estimated GFR (MDRD) > 60.0 ml/min Glucose 138 H (74-106) mg/dL POC Glucose 142 H (70-99) mg/dL Calcium 8.9 (8.5-10.1) mg/dL SARS-CoV-2 RNA (YOUNG) (NEGATIVE) 12/09/20 12/09/20 Range/Units 06:48 11:34 WBC (4.0-11.0) K/uL RBC (4.30-5.90) M/uL Hgb (12.0-16.0) g/dL Hct (36.0-46.0) % MCV (80.0-98.0) fL MCH (27.0-32.0) pg MCHC (31.0-37.0) g/dL RDW Std Deviation (28.0-62.0) fl RDW Coeff of Olimpia (11.0-15.0) % Plt Count (150-400) K/uL MPV (7.40-12.00) fL Neut % (Auto) (48.0-80.0) % Lymph % (Auto) (16.0-40.0) % Phillips % (Auto) (0.0-15.0) % Eos % (Auto) (0.0-7.0) % Baso % (Auto) (0.0-1.5) % Neut # (Auto) (1.4-5.7) K/uL Lymph # (Auto) (0.6-2.4) K/uL Phillips # (Auto) (0.0-0.8) K/uL Eos # (Auto) (0.0-0.7) K/uL Baso # (Auto) (0.0-0.1) K/uL Nucleated RBC % /100WBC Nucleated RBCs # K/uL Sodium (136-145) mmol/L Potassium (3.5-5.1) mmol/L Chloride (98-107) mmol/L Carbon Dioxide (21.0-32.0) mmol/L BUN (7.0-18.0) mg/dL Creatinine (0.6-1.0) mg/dL Est Cr Clr Drug Dosing mL/min Estimated GFR (MDRD) ml/min Glucose (74-106) mg/dL POC Glucose 131 H 164 H (70-99) mg/dL Calcium (8.5-10.1) mg/dL SARS-CoV-2 RNA (YOUNG) (NEGATIVE) Med Orders - Current: Current Medications Acetaminophen (Acetaminophen 325 Mg Tab) 650 mg PO Q4H PRN PRN Reason: Pain (Mild 1-3)/fever Albuterol/Ipratropium (Albuterol/Ipratropium 3.0-0.5 Mg/3 Ml Neb Soln) 3 ml NEB Q4HRRT PRN PRN Reason: Shortness Of Breath/wheezing Atorvastatin Calcium (Atorvastatin 20 Mg Tab) 20 mg PO BEDTIME МАРИНА Dextrose/Water (50% Dextrose In Water 50 Ml Syringe) 50 ml IVPUSH ASDIRECTED PRN PRN Reason: Hypoglycemia Duloxetine HCl (Duloxetine 30 Mg Cap) 30 mg PO DAILY [facility] Last Admin: 12/09/20 08:38 Dose: 30 mg Documented by: Gabapentin (Gabapentin 300 Mg Cap) 300 mg PO TID [facility] Last Admin: 12/09/20 05:16 Dose: 300 mg Documented by: Glucagon (Glucagon,Human Recombinant 1 Mg Vial) 1 mg IM ASDIRECTED PRN PRN Reason: Hypoglycemia Heparin Sodium (Porcine) (Heparin Sodium 5,000 Units/Ml Vial) 5,000 units SUBCUT Q8H [facility] Last Admin: 12/09/20 05:15 Dose: 5,000 units Documented by: Pantoprazole Sodium 40 mg/ (Sodium Chloride) 10 mls @ 300 mls/hr IV Q24H [facility] Last Admin: 12/08/20 22:45 Dose: 300 mls/hr Documented by: Vancomycin HCl 1.5 gm/ Premix 300 mls @ 200 mls/hr IV Q12H [facility] Last Admin: 12/09/20 12:25 Dose: 200 mls/hr Documented by: Piperacillin Sod/Tazobactam (Sod 4.5 gm/ Sodium Chloride) 100 mls @ 200 mls/hr IV Q6H [facility] Last Admin: 12/09/20 11:32 Dose: 200 mls/hr Documented by: Insulin Aspart (Insulin Aspart 100 Units/Ml 3 Ml Pen) 0 unit SUBCUT TIDAC [facility]; Protocol Last Admin: 12/09/20 12:31 Dose: 3 units Documented by: Insulin Human NPH (Insulin Isophane Nph, Human 100 Units/Ml 10 Ml Vial) 30 unit SUBCUT BID [facility] Last Admin: 12/09/20 08:52 Dose: 30 units Documented by: Lisinopril (Lisinopril 10 Mg Tab) 10 mg PO DAILY [facility] Last Admin: 12/09/20 08:38 Dose: 10 mg Documented by: Morphine Sulfate (Morphine 2 Mg/Ml Syringe) 1 mg IVPUSH Q4H PRN PRN Reason: Pain (severe 7-10) Ondansetron HCl (Ondansetron 4 Mg/2 Ml Sdv) 4 mg IVPUSH Q4H PRN PRN Reason: Nausea/Vomiting Vancomycin HCl (Pharmacy To Dose - Vancomycin) 1 dose .XX ASDIRECTED МАРИНА Discontinued Medications Acetaminophen (Acetaminophen 325 Mg Tab) 650 mg PO Q4H PRN PRN Reason: Pain (Mild 1-3)/fever Dextrose/Water (50% Dextrose In Water 50 Ml Syringe) 50 ml IVPUSH ASDIRECTED PRN PRN Reason: Hypoglycemia Glucagon (Glucagon,Human Recombinant 1 Mg Vial) 1 mg IM ASDIRECTED PRN PRN Reason: Hypoglycemia Lactated Ringer's (Ringers, Lactated) 1,000 mls @ 999 mls/hr IV BOLUS ONE Stop: 12/08/20 22:11 Last Admin: 12/08/20 22:23 Dose: 999 mls/hr Documented by: Piperacillin Sod/Tazobactam (Sod 3.375 gm/ Sodium Chloride) 50 mls @ 100 mls/hr IV Q8H МАРИНА Last Admin: 12/09/20 05:11 Dose: 100 mls/hr Documented by: Vancomycin HCl 1.5 gm/ Premix 300 mls @ 200 mls/hr IV ONETIME ONE Stop: 12/08/20 23:59 Last Admin: 12/09/20 00:27 Dose: 200 mls/hr Documented by: - Exam General: Alert, Oriented Lungs: Clear to Auscultation, Normal Respiratory Effort Cardiovascular: Regular Rate, Regular Rhythm GI/Abdominal Exam: Normal Bowel Sounds, Soft, Non-Tender Back Exam: Normal Inspection Extremities: Normal Range of Motion, Joint Swelling, Increased Warmth. No: No rmal Inspection - Patient Data Lab Results Last 24 hrs: Laboratory Results - last 24 hr 12/08/20 12/08/20 12/08/20 Range/Units 21:03 22:05 22:05 WBC 11.43 H (4.0-11.0) K/uL RBC 4.60 (4.30-5.90) M/uL Hgb 13.8 (12.0-16.0) g/dL Hct 41.3 (36.0-46.0) % MCV 89.8 (80.0-98.0) fL MCH 30.0 (27.0-32.0) pg MCHC 33.4 (31.0-37.0) g/dL RDW Std Deviation 44.0 (28.0-62.0) fl RDW Coeff of Olimpia 13 (11.0-15.0) % Plt Count 275 (150-400) K/uL MPV 10.70 (7.40-12.00) fL Neut % (Auto) 57.5 (48.0-80.0) % Lymph % (Auto) 32.1 (16.0-40.0) % Phillips % (Auto) 8.0 (0.0-15.0) % Eos % (Auto) 2.1 (0.0-7.0) % Baso % (Auto) 0.3 (0.0-1.5) % Neut # (Auto) 6.6 H (1.4-5.7) K/uL Lymph # (Auto) 3.7 H (0.6-2.4) K/uL Phillips # (Auto) 0.9 H (0.0-0.8) K/uL Eos # (Auto) 0.2 (0.0-0.7) K/uL Baso # (Auto) 0.0 (0.0-0.1) K/uL Nucleated RBC % 0.0 /100WBC Nucleated RBCs # 0 K/uL Sodium 139 (136-145) mmol/L Potassium 3.9 (3.5-5.1) mmol/L Chloride 102 (98-107) mmol/L Carbon Dioxide 30.1 (21.0-32.0) mmol/L BUN 17 (7.0-18.0) mg/dL Creatinine 1.0 (0.6-1.0) mg/dL Est Cr Clr Drug Dosing 56.53 mL/min Estimated GFR (MDRD) 57.4 ml/min Glucose 124 H (74-106) mg/dL POC Glucose (70-99) mg/dL Calcium 9.8 (8.5-10.1) mg/dL SARS-CoV-2 RNA (YOUNG) NEGATIVE (NEGATIVE) 12/08/20 12/09/20 12/09/20 Range/Units 22:58 05:40 05:40 WBC 8.10 (4.0-11.0) K/uL RBC 4.28 L (4.30-5.90) M/uL Hgb 12.7 (12.0-16.0) g/dL Hct 38.4 (36.0-46.0) % MCV 89.7 (80.0-98.0) fL MCH 29.7 (27.0-32.0) pg MCHC 33.1 (31.0-37.0) g/dL RDW Std Deviation 44.4 (28.0-62.0) fl RDW Coeff of Olimpia 14 (11.0-15.0) % Plt Count 259 (150-400) K/uL MPV 10.70 (7.40-12.00) fL Neut % (Auto) 47.6 L (48.0-80.0) % Lymph % (Auto) 38.8 (16.0-40.0) % Phillips % (Auto) 9.4 (0.0-15.0) % Eos % (Auto) 3.8 (0.0-7.0) % Baso % (Auto) 0.4 (0.0-1.5) % Neut # (Auto) 3.9 (1.4-5.7) K/uL Lymph # (Auto) 3.1 H (0.6-2.4) K/uL Phillips # (Auto) 0.8 (0.0-0.8) K/uL Eos # (Auto) 0.3 (0.0-0.7) K/uL Baso # (Auto) 0.0 (0.0-0.1) K/uL Nucleated RBC % 0.0 /100WBC Nucleated RBCs # 0 K/uL Sodium 140 (136-145) mmol/L Potassium 3.7 (3.5-5.1) mmol/L Chloride 102 (98-107) mmol/L Carbon Dioxide 29.4 (21.0-32.0) mmol/L BUN 15 (7.0-18.0) mg/dL Creatinine 0.9 (0.6-1.0) mg/dL Est Cr Clr Drug Dosing 62.80 mL/min Estimated GFR (MDRD) > 60.0 ml/min Glucose 138 H (74-106) mg/dL POC Glucose 142 H (70-99) mg/dL Calcium 8.9 (8.5-10.1) mg/dL SARS-CoV-2 RNA (YOUNG) (NEGATIVE) 12/09/20 12/09/20 Range/Units 06:48 11:34 WBC (4.0-11.0) K/uL RBC (4.30-5.90) M/uL Hgb (12.0-16.0) g/dL Hct (36.0-46.0) % MCV (80.0-98.0) fL MCH (27.0-32.0) pg MCHC (31.0-37.0) g/dL RDW Std Deviation (28.0-62.0) fl RDW Coeff of Olimpia (11.0-15.0) % Plt Count (150-400) K/uL MPV (7.40-12.00) fL Neut % (Auto) (48.0-80.0) % Lymph % (Auto) (16.0-40.0) % Phillips % (Auto) (0.0-15.0) % Eos % (Auto) (0.0-7.0) % Baso % (Auto) (0.0-1.5) % Neut # (Auto) (1.4-5.7) K/uL Lymph # (Auto) (0.6-2.4) K/uL Phillips # (Auto) (0.0-0.8) K/uL Eos # (Auto) (0.0-0.7) K/uL Baso # (Auto) (0.0-0.1) K/uL Nucleated RBC % /100WBC Nucleated RBCs # K/uL Sodium (136-145) mmol/L Potassium (3.5-5.1) mmol/L Chloride (98-107) mmol/L Carbon Dioxide (21.0-32.0) mmol/L BUN (7.0-18.0) mg/dL Creatinine (0.6-1.0) mg/dL Est Cr Clr Drug Dosing mL/min Estimated GFR (MDRD) ml/min Glucose (74-106) mg/dL POC Glucose 131 H 164 H (70-99) mg/dL Calcium (8.5-10.1) mg/dL SARS-CoV-2 RNA (YOUNG) (NEGATIVE) Result Diagrams: 12/09/20 05:40 12/09/20 05:40 Sepsis Event Note - Evaluation Sepsis Screening Result: No Definite Risk - Focused Exam Vital Signs: Vital Signs Temp Pulse Resp BP BP Pulse Ox 12/09/20 11:49 35.6 C L 75 16 113/78 94 L 12/09/20 08:38 129/68 12/09/20 07:00 36.1 C 84 16 136/69 93 L 12/09/20 05:08 36.9 C 84 16 122/68 94 L - Problem List Review Problem List Initiated/Reviewed/Updated: Yes - My Orders Last 24 Hours: My Active Orders 12/08/20 Dinner [employer] Diet [DIET] 12/08/20 21:11 Patient Status [ADT] Routine Ambulate [RC] ASDIRECTED Oxygen Therapy [RC] PRN VTE/DVT Education [RC] PER UNIT ROUTINE Vital Signs [RC] Q4H Acetaminophen [TylenoL] 650 mg PO Q4H PRN Albuterol/Ipratropium [DuoNeb 3.0-0.5 MG/3 ML] 3 ml NEB Q4HRRT PRN Morphine 1 mg IVPUSH Q4H PRN Ondansetron [Zofran] 4 mg IVPUSH Q4H PRN 12/08/20 21:13 Pulse Oximetry [RC] PRN Sequential Compression Device [OM.PC] Per Unit Routine 12/08/20 21:14 Antiembolic Devices [RC] PER UNIT ROUTINE 12/08/20 21:15 RT Aerosol Therapy [RC] ASDIRECTED Heparin Sodium 5,000 units SUBCUT Q8H Pantoprazole [ProTONIX IV] 40 mg Sodium Chloride 0.9% [Normal Saline] 10 ml IV Q24H 12/08/20 21:45 Dextrose 50% in Water 50 ml IVPUSH ASDIRECTED PRN Glucagon,Human Recombinant [GlucaGen] 1 mg IM ASDIRECTED PRN Pharmacy to Dose - Vancomycin 1 dose .XX ASDIRECTED 12/09/20 00:25 Consult to Physician [CONS] Routine 12/09/20 00:26 Notify Provider Consults [RC] ASDIRECTED 12/09/20 06:00 Gabapentin [Neurontin] 300 mg PO TID 12/09/20 Breakfast NPO After Midnight [Nothing per Oral After Midnight Diet] [DIET] 12/09/20 07:30 Blood Glucose Check, Bedside [RC] TIDAC Insulin Aspart [NovoLOG] See Protocol SUBCUT TIDAC 12/09/20 09:00 DULoxetine [Cymbalta] 30 mg PO DAILY Insulin Isophane NPH, Human [NovoLIN N] 30 unit SUBCUT BID lisinopriL [Prinivil] 10 mg PO DAILY 12/09/20 11:00 Piperacillin/Tazobactam [Piperacil-Tazobact] 4.5 gm Sodium Chloride 0.9% [Normal Saline] 100 ml IV Q6H 12/09/20 12:30 VANCOmycin 1.5 GM/300 ML 1.5 gm Premix Bag 1 bag IV Q12H 12/09/20 21:00 atorvaSTATin [Lipitor] 20 mg PO BEDTIME - Plan Plan:: Patient is a 55-year-old female admitted for infected diabetic foot ulcer of her left foot cont broad-spectrum antibiotics Culture has already been obtained by patient's golf ball marker yesterday, will follow up on the results, previous cultures growing Klebsiella f/u on MRI of left foot without contrast for further assessment of the wound For pain control start IV morphine as needed Continue gabapentin for neuropathy Sliding scale insulin for diabetes, DuoNebs as needed for shortness of breath Resume home meds as appropriate Chest with podiatry for further recommendations
--- NOTE | 2020-12-09 17:23 | PCM.PREANE ---
Preanesthetic Assessment - Anesthesia/Transfusion/Family Hx Anesthesia History: Prior Anesthesia Without Reaction Family History of Anesthesia Reaction: No (Hx IDDM. Hx HTN.) Transfusion History: No Prior Transfusion(s) - Physical Assessment NPO Status Date: 12/09/20 NPO Status Time: 00:05 Vital Signs: Last Vital Signs Temp 36 C L 12/09/20 16:05 Pulse 78 12/09/20 16:05 Resp 17 12/09/20 16:05 BP 118/75 12/09/20 16:05 Pulse Ox 94 L 12/09/20 16:05 Height: 1.65 m Weight: 104.145 kg ASA Class: 3E - Lab Values: Laboratory Last Values WBC 8.10 K/uL (4.0-11.0) 12/09/20 05:40 RBC 4.28 M/uL (4.30-5.90) L 12/09/20 05:40 Hgb 12.7 g/dL (12.0-16.0) 12/09/20 05:40 Hct 38.4 % (36.0-46.0) 12/09/20 05:40 MCV 89.7 fL (80.0-98.0) 12/09/20 05:40 MCH 29.7 pg (27.0-32.0) 12/09/20 05:40 MCHC 33.1 g/dL (31.0-37.0) 12/09/20 05:40 RDW Std Deviation 44.4 fl (28.0-62.0) 12/09/20 05:40 RDW Coeff of Olimpia 14 % (11.0-15.0) 12/09/20 05:40 Plt Count 259 K/uL (150-400) 12/09/20 05:40 MPV 10.70 fL (7.40-12.00) 12/09/20 05:40 Neut % (Auto) 47.6 % (48.0-80.0) L 12/09/20 05:40 Lymph % (Auto) 38.8 % (16.0-40.0) 12/09/20 05:40 [place] % (Auto) 9.4 % (0.0-15.0) 12/09/20 05:40 Eos % (Auto) 3.8 % (0.0-7.0) 12/09/20 05:40 Baso % (Auto) 0.4 % (0.0-1.5) 12/09/20 05:40 Neut # (Auto) 3.9 K/uL (1.4-5.7) 12/09/20 05:40 Lymph # (Auto) 3.1 K/uL (0.6-2.4) H 12/09/20 05:40 [place] # (Auto) 0.8 K/uL (0.0-0.8) 12/09/20 05:40 Eos # (Auto) 0.3 K/uL (0.0-0.7) 12/09/20 05:40 Baso # (Auto) 0.0 K/uL (0.0-0.1) 12/09/20 05:40 Nucleated RBC % 0.0 /100WBC 12/09/20 05:40 Nucleated RBCs # 0 K/uL 12/09/20 05:40 Sodium 140 mmol/L (136-145) 12/09/20 05:40 Potassium 3.7 mmol/L (3.5-5.1) 12/09/20 05:40 Chloride 102 mmol/L (98-107) 12/09/20 05:40 Carbon Dioxide 29.4 mmol/L (21.0-32.0) 12/09/20 05:40 BUN 15 mg/dL (7.0-18.0) 12/09/20 05:40 Creatinine 0.9 mg/dL (0.6-1.0) 12/09/20 05:40 Est Cr Clr Drug Dosing 62.80 mL/min 12/09/20 05:40 Estimated GFR (MDRD) > 60.0 ml/min 12/09/20 05:40 Glucose 138 mg/dL (74-106) H 12/09/20 05:40 POC Glucose 119 mg/dL (70-99) H 12/09/20 17:05 Calcium 8.9 mg/dL (8.5-10.1) 12/09/20 05:40 SARS-CoV-2 RNA (YOUNG) NEGATIVE (NEGATIVE) 12/08/20 21:03 - Allergies Allergies/Adverse Reactions: Allergies Allergy/AdvReac Type Severity Reaction Status Date / Time No Known Allergies Allergy Verified 10/24/20 01:56 PreAnesthesia Questionnaire HEENT History: Reports: Impaired Vision Other HEENT History: patient wears eyeglasses Cardiovascular History: Reports: High Cholesterol, Hypertension Respiratory History: Reports: Bronchitis, Recurrent Gastrointestinal History: Reports: Pancreatitis Genitourinary History: Reports: Other (See Below) Other Genitourinary History: Major Kidney Infections 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: Musculoskeletal History: Reports: Arthritis, Other (See Below) Other Musculoskeletal History: lower back arthritis, R shoulder arthritis' diabetic foot Neurological History: Reports: Neuropathy, Diabetic Psychiatric History: Reports: Depression Endocrine/Metabolic History: Reports: Diabetes, Type II Dermatologic History: Reports: Other (See Below) Other Dermatologic History: diabetic foot - Infectious Disease History Infectious Disease History: Reports: Chicken Pox, Measles - Past Surgical History HEENT Surgical History: Reports: None Cardiovascular Surgical History: Reports: None Respiratory Surgical History: Reports: None GI Surgical History: Reports: Cholecystectomy Female Surgical History: Reports: None Endocrine Surgical History: Reports: None Neurological Surgical History: Reports: None Musculoskeletal Surgical History: Reports: Shoulder Surgery - SUBSTANCE USE Tobacco Use Status *Q: Never Tobacco User Recreational Drug Use History: No - HOME MEDS Home Medications: Home Meds Gabapentin [Neurontin] 300 mg PO TID 08/24/20 [History] lisinopriL [Lisinopril] 10 mg PO DAILY 08/24/20 [History] metFORMIN HCl [Metformin HCl] 500 mg PO BIDMEALS 08/24/20 [History] DULoxetine [Cymbalta] 30 mg PO DAILY 08/26/20 [History] Pantoprazole Sodium [Protonix] 40 mg PO DAILY PRN 10/24/20 [History] Acetaminophen [Tylenol] 650 mg PO Q4H PRN tablet 10/28/20 [Rx] DAPTOmycin [Cubicin] 1,000 mg IVPUSH DAILY vial 10/28/20 [Rx] Ertapenem [INVanz] 1 gm IV Q24H vial 10/28/20 [Rx] Insulin Aspart [NovoLOG] 0 unit SUBCUT TIDAC pen 10/28/20 [Rx] Insulin Isophane NPH, Human [NovoLIN N] 30 unit SQ BID 30 Days #0 10/28/20 [Rx] atorvaSTATin [Lipitor] 20 mg PO BEDTIME tablet 10/28/20 [Rx] Insulin Regular, Human [NovoLIN R] 12/08/20 [History] - CURRENT (IN HOUSE) MEDS Current Meds: Current Medications Acetaminophen (Acetaminophen 325 Mg Tab) 650 mg PO Q4H PRN PRN Reason: Pain (Mild 1-3)/fever Albuterol/Ipratropium (Albuterol/Ipratropium 3.0-0.5 Mg/3 Ml Neb Soln) 3 ml NEB Q4HRRT PRN PRN Reason: Shortness Of Breath/wheezing Atorvastatin Calcium (Atorvastatin 20 Mg Tab) 20 mg PO BEDTIME [facility] Dextrose/Water (50% Dextrose In Water 50 Ml Syringe) 50 ml IVPUSH ASDIRECTED PRN PRN Reason: Hypoglycemia Duloxetine HCl (Duloxetine 30 Mg Cap) 30 mg PO DAILY [facility] Last Admin: 12/09/20 08:38 Dose: 30 mg Documented by: Gabapentin (Gabapentin 300 Mg Cap) 300 mg PO TID [facility] Last Admin: 12/09/20 14:12 Dose: 300 mg Documented by: Glucagon (Glucagon,Human Recombinant 1 Mg Vial) 1 mg IM ASDIRECTED PRN PRN Reason: Hypoglycemia Heparin Sodium (Porcine) (Heparin Sodium 5,000 Units/Ml Vial) 5,000 units SUBCUT Q8H [facility] Last Admin: 12/09/20 14:12 Dose: 5,000 units Documented by: Pantoprazole Sodium 40 mg/ (Sodium Chloride) 10 mls @ 300 mls/hr IV Q24H [facility] Last Admin: 12/08/20 22:45 Dose: 300 mls/hr Documented by: Vancomycin HCl 1.5 gm/ Premix 300 mls @ 200 mls/hr IV Q12H [facility] Last Admin: 12/09/20 12:25 Dose: 200 mls/hr Documented by: Piperacillin Sod/Tazobactam (Sod 4.5 gm/ Sodium Chloride) 100 mls @ 200 mls/hr IV Q6H [facility] Last Admin: 12/09/20 17:13 Dose: 200 mls/hr Documented by: Insulin Aspart (Insulin Aspart 100 Units/Ml 3 Ml Pen) 0 unit SUBCUT TIDAC [facility]; Protocol Last Admin: 12/09/20 17:12 Dose: Not Given Documented by: Insulin Human NPH (Insulin Isophane Nph, Human 100 Units/Ml 10 Ml Vial) 30 unit SUBCUT BID [facility] Last Admin: 12/09/20 08:52 Dose: 30 units Documented by: Lisinopril (Lisinopril 10 Mg Tab) 10 mg PO DAILY [facility] Last Admin: 12/09/20 08:38 Dose: 10 mg Documented by: Morphine Sulfate (Morphine 2 Mg/Ml Syringe) 1 mg IVPUSH Q4H PRN PRN Reason: Pain (severe 7-10) Ondansetron HCl (Ondansetron 4 Mg/2 Ml Sdv) 4 mg IVPUSH Q4H PRN PRN Reason: Nausea/Vomiting Vancomycin HCl (Pharmacy To Dose - Vancomycin) 1 dose .XX ASDIRECTED МАРИНА Discontinued Medications Acetaminophen (Acetaminophen 325 Mg Tab) 650 mg PO Q4H PRN PRN Reason: Pain (Mild 1-3)/fever Dextrose/Water (50% Dextrose In Water 50 Ml Syringe) 50 ml IVPUSH ASDIRECTED PRN PRN Reason: Hypoglycemia Glucagon (Glucagon,Human Recombinant 1 Mg Vial) 1 mg IM ASDIRECTED PRN PRN Reason: Hypoglycemia Lactated Ringer's (Ringers, Lactated) 1,000 mls @ 999 mls/hr IV BOLUS ONE Stop: 12/08/20 22:11 Last Admin: 12/08/20 22:23 Dose: 999 mls/hr Documented by: Piperacillin Sod/Tazobactam (Sod 3.375 gm/ Sodium Chloride) 50 mls @ 100 mls/hr IV Q8H [facility] Last Admin: 12/09/20 05:11 Dose: 100 mls/hr Documented by: Vancomycin HCl 1.5 gm/ Premix 300 mls @ 200 mls/hr IV ONETIME ONE Stop: 12/08/20 23:59 Last Admin: 12/09/20 00:27 Dose: 200 mls/hr Documented by:
[2020-12-09] MEDS ORDERED: ceFAZolin 1 GM Vial ONE (17:33)
[2020-12-09] MEDS ORDERED: Bupivacaine 0.5% 30 ML SDV ONE (17:34)
[2020-12-09] MEDS ORDERED: Lidocaine 1% 20 ML MDV ONE (17:34)
[2020-12-09] MEDS ORDERED: fentaNYL 100 MCG/2 ML SDV ONE (17:40)
[2020-12-09] MEDS ORDERED: Midazolam 1 MG/ML 2 ML SDV ONE (17:40)
[2020-12-09] MEDS ORDERED: Propofol 200 MG/20 ML SDV ONE ×3 (17:40→18:19)
[2020-12-09] MEDS ORDERED: Ondansetron 4 MG/2 ML SDV ONE (17:43)
[2020-12-09] MEDS ORDERED: Lidocaine 2% 5 ML SDV ONE (17:43)
[2020-12-09] MEDS ORDERED: Glycopyrrolate 0.2 MG/ML SDV ONE (17:43)
[2020-12-09] MEDS ORDERED: Ketorolac 30 MG/ML SDV ONE (17:43)
--- NOTE | 2020-12-09 18:09 | PCM.CONS ---
H&P History of Present Illness - General Date of Service: 12/09/20 Admit Problem/Dx: Admission Diagnosis/Problem Admission Diagnosis/Problem Diabetic foot infection - History of Present Illness Initial Comments - Free Text/Narative: patient was hospitalized repeatedly over last few months, first for treatment of right foot diabetic ulcer and then for left foot diabetic ulcer. She has recently been following up in my office and I extended her Daptomycin and have repeatedly cultured her - one is pending now from 12/07/20. Despite antibiotics she has experienced further breakdown and sent me a photo of her foot last night which resulted in my decision to request she be admitted. Onset of Symptoms: Reports: Gradual Location: Reports: Lower Extremity, Left Quality: Reports: Same as Previous Episode Improves with: Reports: None Worsens with: Reports: None - Related Data Allergies/Adverse Reactions: Allergies Allergy/AdvReac Type Severity Reaction Status Date / Time No Known Allergies Allergy Verified 10/24/20 01:56 Home Medications: Home Meds Gabapentin [Neurontin] 300 mg PO TID 08/24/20 [History] lisinopriL [Lisinopril] 10 mg PO DAILY 08/24/20 [History] metFORMIN HCl [Metformin HCl] 500 mg PO BIDMEALS 08/24/20 [History] DULoxetine [Cymbalta] 30 mg PO DAILY 08/26/20 [History] Pantoprazole Sodium [Protonix] 40 mg PO DAILY PRN 10/24/20 [History] Acetaminophen [Tylenol] 650 mg PO Q4H PRN tablet 10/28/20 [Rx] DAPTOmycin [Cubicin] 1,000 mg IVPUSH DAILY vial 10/28/20 [Rx] Ertapenem [INVanz] 1 gm IV Q24H vial 10/28/20 [Rx] Insulin Aspart [NovoLOG] 0 unit SUBCUT TIDAC pen 10/28/20 [Rx] Insulin Isophane NPH, Human [NovoLIN N] 30 unit SQ BID 30 Days #0 10/28/20 [Rx] atorvaSTATin [Lipitor] 20 mg PO BEDTIME tablet 10/28/20 [Rx] Insulin Regular, Human [NovoLIN R] 12/08/20 [History] Past Medical History HEENT History: Reports: Impaired Vision Other HEENT History: patient wears eyeglasses Cardiovascular History: Reports: High Cholesterol, Hypertension Respiratory History: Reports: Bronchitis, Recurrent Gastrointestinal History: Reports: Pancreatitis Genitourinary History: Reports: Other (See Below) Other Genitourinary History: Major Kidney Infections [employer] History: Reports: Musculoskeletal History: Reports: Arthritis, Other (See Below) Other Musculoskeletal History: lower back arthritis, R shoulder arthritis' diabetic foot Neurological History: Reports: Neuropathy, Diabetic Psychiatric History: Reports: Depression Endocrine/Metabolic History: Reports: Diabetes, Type II Dermatologic History: Reports: Other (See Below) Other Dermatologic History: diabetic foot - Infectious Disease History Infectious Disease History: Reports: Chicken Pox, Measles - Past Surgical History HEENT Surgical History: Reports: None Cardiovascular Surgical History: Reports: None Respiratory Surgical History: Reports: None GI Surgical History: Reports: Cholecystectomy Female Surgical History: Reports: None Endocrine Surgical History: Reports: None Neurological Surgical History: Reports: None Musculoskeletal Surgical History: Reports: Shoulder Surgery Social & Family History - Family History Family Medical History: No Pertinent Family History - Tobacco Use Tobacco Use Status *Q: Never Tobacco User - Caffeine Use Caffeine Use: Reports: None Other Caffeine Use: flavored water - Recreational Drug Use Recreational Drug Use: No H&P Review of Systems - Review of Systems: Review Of Systems: Comprehensive ROS is negative, except as noted in HPI. Exam - Exam Exam: See Below - Vital Signs Vital Signs: Last Vital Signs Temp 36 C L 12/09/20 16:05 Pulse 78 12/09/20 16:05 Resp 17 12/09/20 16:05 BP 118/75 12/09/20 16:05 Pulse Ox 94 L 12/09/20 16:05 Weight: 104.145 kg - Exam Peripheral Pulses: 1+: Posterior Tibial (L), Posterior Tibial (R), Dorsalis Pedis (L), Dorsalis Pedis (R) Skin: Other (left foot plantar and dorsal ulcer with tracking medial side about 1st metatarsal head, surrounding erythema) - Patient Data Lab Results Last 24 hrs: Laboratory Results - last 24 hr 12/08/20 12/08/20 12/08/20 Range/Units 21:03 22:05 22:05 WBC 11.43 H (4.0-11.0) K/uL RBC 4.60 (4.30-5.90) M/uL Hgb 13.8 (12.0-16.0) g/dL Hct 41.3 (36.0-46.0) % MCV 89.8 (80.0-98.0) fL MCH 30.0 (27.0-32.0) pg MCHC 33.4 (31.0-37.0) g/dL RDW Std Deviation 44.0 (28.0-62.0) fl RDW Coeff of Olimpia 13 (11.0-15.0) % Plt Count 275 (150-400) K/uL MPV 10.70 (7.40-12.00) fL Neut % (Auto) 57.5 (48.0-80.0) % Lymph % (Auto) 32.1 (16.0-40.0) % [place]ter % (Auto) 8.0 (0.0-15.0) % Eos % (Auto) 2.1 (0.0-7.0) % Baso % (Auto) 0.3 (0.0-1.5) % Neut # (Auto) 6.6 H (1.4-5.7) K/uL Lymph # (Auto) 3.7 H (0.6-2.4) K/uL Sumter # (Auto) 0.9 H (0.0-0.8) K/uL Eos # (Auto) 0.2 (0.0-0.7) K/uL Baso # (Auto) 0.0 (0.0-0.1) K/uL Nucleated RBC % 0.0 /100WBC Nucleated RBCs # 0 K/uL Sodium 139 (136-145) mmol/L Potassium 3.9 (3.5-5.1) mmol/L Chloride 102 (98-107) mmol/L Carbon Dioxide 30.1 (21.0-32.0) mmol/L BUN 17 (7.0-18.0) mg/dL Creatinine 1.0 (0.6-1.0) mg/dL Est Cr Clr Drug Dosing 56.53 mL/min Estimated GFR (MDRD) 57.4 ml/min Glucose 124 H (74-106) mg/dL POC Glucose (70-99) mg/dL Calcium 9.8 (8.5-10.1) mg/dL SARS-CoV-2 RNA (YOUNG) NEGATIVE (NEGATIVE) 12/08/20 12/09/20 12/09/20 Range/Units 22:58 05:40 05:40 WBC 8.10 (4.0-11.0) K/uL RBC 4.28 L (4.30-5.90) M/uL Hgb 12.7 (12.0-16.0) g/dL Hct 38.4 (36.0-46.0) % MCV 89.7 (80.0-98.0) fL MCH 29.7 (27.0-32.0) pg MCHC 33.1 (31.0-37.0) g/dL RDW Std Deviation 44.4 (28.0-62.0) fl RDW Coeff of Olimpia 14 (11.0-15.0) % Plt Count 259 (150-400) K/uL MPV 10.70 (7.40-12.00) fL Neut % (Auto) 47.6 L (48.0-80.0) % Lymph % (Auto) 38.8 (16.0-40.0) % Sumter % (Auto) 9.4 (0.0-15.0) % Eos % (Auto) 3.8 (0.0-7.0) % Baso % (Auto) 0.4 (0.0-1.5) % Neut # (Auto) 3.9 (1.4-5.7) K/uL Lymph # (Auto) 3.1 H (0.6-2.4) K/uL Sumter # (Auto) 0.8 (0.0-0.8) K/uL Eos # (Auto) 0.3 (0.0-0.7) K/uL Baso # (Auto) 0.0 (0.0-0.1) K/uL Nucleated RBC % 0.0 /100WBC Nucleated RBCs # 0 K/uL Sodium 140 (136-145) mmol/L Potassium 3.7 (3.5-5.1) mmol/L Chloride 102 (98-107) mmol/L Carbon Dioxide 29.4 (21.0-32.0) mmol/L BUN 15 (7.0-18.0) mg/dL Creatinine 0.9 (0.6-1.0) mg/dL Est Cr Clr Drug Dosing 62.80 mL/min Estimated GFR (MDRD) > 60.0 ml/min Glucose 138 H (74-106) mg/dL POC Glucose 142 H (70-99) mg/dL Calcium 8.9 (8.5-10.1) mg/dL SARS-CoV-2 RNA (YOUNG) (NEGATIVE) 12/09/20 12/09/20 12/09/20 Range/Units 06:48 11:34 17:05 WBC (4.0-11.0) K/uL RBC (4.30-5.90) M/uL Hgb (12.0-16.0) g/dL Hct (36.0-46.0) % MCV (80.0-98.0) fL MCH (27.0-32.0) pg MCHC (31.0-37.0) g/dL RDW Std Deviation (28.0-62.0) fl RDW Coeff of Olimpia (11.0-15.0) % Plt Count (150-400) K/uL MPV (7.40-12.00) fL Neut % (Auto) (48.0-80.0) % Lymph % (Auto) (16.0-40.0) % Sumter % (Auto) (0.0-15.0) % Eos % (Auto) (0.0-7.0) % Baso % (Auto) (0.0-1.5) % Neut # (Auto) (1.4-5.7) K/uL Lymph # (Auto) (0.6-2.4) K/uL Sumter # (Auto) (0.0-0.8) K/uL Eos # (Auto) (0.0-0.7) K/uL Baso # (Auto) (0.0-0.1) K/uL Nucleated RBC % /100WBC Nucleated RBCs # K/uL Sodium (136-145) mmol/L Potassium (3.5-5.1) mmol/L Chloride (98-107) mmol/L Carbon Dioxide (21.0-32.0) mmol/L BUN (7.0-18.0) mg/dL Creatinine (0.6-1.0) mg/dL Est Cr Clr Drug Dosing mL/min Estimated GFR (MDRD) ml/min Glucose (74-106) mg/dL POC Glucose 131 H 164 H 119 H (70-99) mg/dL Calcium (8.5-10.1) mg/dL SARS-CoV-2 RNA (YOUNG) (NEGATIVE) Result Diagrams: 12/11/20 07:35 12/11/20 07:35 Sepsis Event Note - Evaluation Sepsis Screening Result: No Definite Risk - Focused Exam Vital Signs: Vital Signs Temp Pulse Resp BP BP Pulse Ox 12/09/20 16:05 36 C L 78 17 118/75 94 L 12/09/20 11:49 35.6 C L 75 16 113/78 94 L 12/09/20 08:38 129/68 12/09/20 07:00 36.1 C 84 16 136/69 93 L Consult PN Assessment/Plan Procedures: Procedures ASSAY OF CK (CPK) (08/24/20) ASSAY OF LACTIC ACID (08/24/20) ASSAY OF MAGNESIUM (08/16/20) ASSAY OF PHOSPHORUS (08/16/20) ASSAY OF VANCOMYCIN (08/24/20) BLOOD CULTURE FOR BACTERIA (08/24/20) C-REACTIVE PROTEIN (08/24/20) COMPLETE CBC W/AUTO DIFF WBC (08/24/20) COMPREHEN METABOLIC PANEL (08/24/20) CT LOWER EXTREMITY W/O DYE (08/24/20) EMERGENCY DEPT VISIT (08/24/20) EXTREMITY STUDY (08/16/20) GLUCOSE BLOOD TEST (08/24/20) GLYCOSYLATED HEMOGLOBIN TEST (08/24/20) METABOLIC PANEL TOTAL CA (08/24/20) OFFICE O/P EST MINIMAL PROB (11/27/20) PT EVAL LOW COMPLEX 20 MIN (08/24/20) RBC SED RATE AUTOMATED (08/24/20) ROUTINE VENIPUNCTURE (08/24/20) SARS-COV-2 COVID-19 AMP PRB (08/24/20) THER/PROPH/DIAG INJ IV PUSH (11/27/20) THER/PROPH/DIAG INJ SC/IM (08/24/20) THER/PROPH/DIAG IV INF ADDON (08/24/20) THER/PROPH/DIAG IV INF INIT (11/27/20) TX/PRO/DX INJ NEW DRUG ADDON (11/27/20) TX/PRO/DX INJ SAME DRUG HYDRAULIC PLUMBER HELPER (08/24/20) TX/PROPH/DG ADDL SEQ IV INF (08/24/20) URINALYSIS AUTO W/SCOPE (08/24/20) X-RAY EXAM CHEST 1 VIEW (08/24/20) X-RAY EXAM OF FOOT (08/23/20) (1) Diabetic foot ulcer SNOMED Code(s): 822158350 Code(s): E11.621 - TYPE 2 DIABETES MELLITUS WITH FOOT ULCER; L97.509 - NON- PRESSURE CHRONIC ULCER OTH PRT UNSP FOOT W UNSP SEVERITY Current Visit: No Qualifiers: Diabetes mellitus type: type 2 Laterality: left Non-pressure ulcer stage: with necrosis of muscle Problem List Initiated/Reviewed/Updated: Yes Plan: 1. Patient seen and examined and discussion held with patient regarding need for surgery this evening. 2. I&D with debridement to bone and excision of medial sesamoid planned for this evening. 3. Continue IV antibiotics. 4. Will follow.
--- NOTE | 2020-12-09 19:56 | PCM.POSTAN ---
POST ANESTHESIA ASSESSMENT - MENTAL STATUS Mental Status: Alert - VITAL SIGNS Vital Signs: Last Vital Signs Temp 37.1 C 12/09/20 19:43 Pulse 90 12/09/20 19:54 Resp 13 12/09/20 19:54 BP 88/60 L 12/09/20 19:54 Pulse Ox 96 12/09/20 19:54 - RESPIRATORY Respiratory Status: Respiratory Rate WNL - CARDIOVASCULAR CV Status: Pulse Rate WNL - GASTROINTESTINAL GI Status: No Symptoms - POST OP HYDRATION Hydration Status: Adequate & Stable
--- NOTE | 2020-12-09 20:12 | PCM48HPAN ---
Post Anesthesia Note - EVALUATION WITHIN 48HRS OF ANESTHETIC Vital Signs in Normal Range: Yes Patient Participated in Evaluation: Yes Respiratory Function Stable: Yes Airway Patent: Yes Cardiovascular Function Stable: Yes Hydration Status Stable: Yes Pain Control Satisfactory: Yes Nausea and Vomiting Control Satisfactory: Yes Mental Status Recovered: Yes Vital Signs: Last Vital Signs Temp 37.1 C 12/09/20 19:43 Pulse 86 12/09/20 20:04 Resp 13 12/09/20 20:04 BP 87/57 L 12/09/20 20:04 Pulse Ox 93 L 12/09/20 20:04
--- NOTE | 2020-12-09 20:21 | PCM.OPNOTE ---
- General Post-Op/Procedure Note Date of Surgery/Procedure: 12/09/20 Operative Procedure(s): 1. incision and drainage left foot. 2. debridement and excision of bone left foot. Findings: consistent with dx Pre Op Diagnosis: diabetic ulcer with changes consistent with osteomyelitis Post-Op Diagnosis: diabetic ulcer with changes consistent with osteomyelitis Anesthesia Technique: Local, MAC Primary Surgeon: Asael Pete Pathology: medial sesamoid bone left foot EBL in mLs: 20 Drain/Tube Comments:: iodoform packing Complications: none Condition: Good Free Text/Narrative:: Intake & Output 12/09/20 12/09/20 12/09/20 06:59 14:59 22:59 Intake Total 1860 900 Output Total 0 300 Balance 1860 600 materials: 3-0 vicryl, 2-0 prolene, 1/4" iodoform packing injectables: 1% lidocaine plain 10 ml, 0.5% marcaine plain 7 ml tourniquet time 47 min.
[2020-12-09] MEDS: atorvaSTATin 20 MG Tab PO SCH (21:29)
[2020-12-09] MEDS: Pantoprazole 40 MG in Sodium Chloride 0.9% 10 ML IV SCH (21:29)
--- NOTE | 2020-12-10 00:32 | OR ---
SURGEON: Asael Pete DPM DATE OF PROCEDURE: 12/09/2020 PROCEDURES: 1. Incision and drainage, left foot. 2. Debridement and excision of bone, left foot. PREOPERATIVE DIAGNOSES: Diabetic ulcer, left foot and osteomyelitis, left foot. POSTOPERATIVE DIAGNOSES: Diabetic ulcer, left foot and osteomyelitis, left foot. The findings were consistent with diagnoses. ANESTHESIA: Consisted of local, 10 mL of 1% lidocaine plain and MAC. PRIMARY SURGEON: Asael Pete DPM. PATHOLOGY: Medial sesamoid bone, left foot. ESTIMATED BLOOD LOSS: 20 mL. COMPLICATIONS: None. CONDITION: Good. MATERIALS: 3-0 Vicryl, 2-0 Prolene, 0.25-inch iodoform packing. INJECTABLES: Local anesthesia preoperatively consisting of 1% lidocaine plain 10 mL and postoperatively 0.5% Marcaine plain 7 mL. HEMOSTASIS: [place] tourniquet inflated to a pressure of 250 mmHg for tourniquet time of 47 minutes. JUSTIFICATION FOR THE PROCEDURE: The patient is a poorly controlled diabetic who has been treated recently both for right foot and left foot ulcers in the sub 1st metatarsophalangeal joint area and she was successfully healed of a diabetic ulcer several months ago on the right foot; however, the left foot has been resistant and has broken down and is resistant to treatment so far. A tracking ulcer was noted at her last office visit 2 days ago. The patient is already on several weeks of IV daptomycin. Nonetheless, her condition worsened yesterday, and after the patient sent me a photo showing increased swelling and cellulitis on the left foot, I coordinated her admission to the hospital and MRI indicated osteomyelitis today of the medial sesamoid bone as well as tracking as previously noted from the plantar ulcer medially to the dorsal ulcer. Therefore, incision and drainage is indicated as well as excision of the bone, particularly the medial sesamoid bone and patient was advised that this bone should be excised to limit risk to nearby bones. All patient questions have been asked and answered. No guarantees expressed or implied and written consent has been obtained for the procedures from the patient. PROCEDURES IN DETAIL: The patient was brought to the operating room and placed on the operating table in a supine position, at which time an aseptic scrub and drape was performed on the patient's left lower extremity. Incision planning was performed with a marking pen. Time-out was performed with all present agreeing that the correct surgical site was marked and planned procedures were correct as well as noted in the written consent form. Preoperative x-rays were taken. Incision was made from the dorsal ulcer running in a curvilinear fashion along the medial aspect of the left 1st metatarsophalangeal joint area and distally to the plantar ulcer. It was deepened to the level of subcutaneous and then deep tissue and through the capsule at the 1st metatarsophalangeal joint area. Swab cultures taken. Copious amounts of normal sterile saline were used to flush the area throughout the procedure as needed. Necrotic and devitalized tissue were removed. During the course of the dissection, the irregular medial sesamoid was identified and was excised and sent to pathology for gross and histologic examination. Further inspection did not reveal any visible signs of infection to the base of the proximal phalanx of the hallux or the 1st metatarsal head. The area was flushed with pulse lavage and Betadine diluted saline. Following saline pulse lavage, it was dried in preparation for layered closure partially. Areas that were judged to be healthy were closed with the deeper tissue reapproximated with 3-0 Vicryl suture. Interrupted gapping 2-0 Prolene sutures were used to close the superficial skin and subcutaneous layers and to allow for further drainage and for packing. 0.25- inch packing was inserted both through the plantar aspect of the incision where the ulcer had been located as well as the dorsal aspect. Betadine-soaked Adaptic gauze was applied following postoperative x-rays being taken and 7 mL of 0.5% Marcaine plain was infiltrated about the surgical site. It should also be noted that prior to pulse lavage, swab cultures were taken for further culture and sensitivity analysis. Following application of the fluff gauze and Kerlix roll, an Angel bandage was affixed to secure the dressings. The patient is being returned to her room having tolerated the procedure and anesthesia well and following the deflation of the tourniquet prior to the closure of the skin at a tourniquet time of 47 minutes. There was a prime prompt hyperemic response to all digits of the left foot. I will be following the patient on a daily basis until she is discharged. SLANGUY / MODL /[id number] [facility] INSANELaverne
[2020-12-10] MEDS: VANCOmycin 1.5 GM/300 ML 1.5 GM in Premix Bag 1 BAG IV SCH ×3 (01:14→23:36)
[2020-12-10] MEDS: Piperacillin/Tazobactam 4.5 GM in Sodium Chloride 0.9% 100 ML IV SCH ×4 (06:03→21:59)
[2020-12-10] MEDS: Heparin Sodium 5,000 Units/ML Vial SUBCUT SCH ×3 (06:04→20:42)
[2020-12-10] MEDS: Gabapentin 300 MG Cap PO SCH ×3 (06:04→22:00)
[2020-12-10 08:07] LABS: BLOOD UREA NITROGEN,BUN 12 mg/dL (7.0-18.0); CARBON DIOXIDE,CO2 27.5 mmol/L (21.0-32.0); CHLORIDE,CL 104 mmol/L (98-107); GLUCOSE RANDOM 130 mg/dL (74-106); POTASSIUM,K 4.2 mmol/L (3.5-5.1); SODIUM,NA 139 mmol/L (136-145)
[2020-12-10] MEDS: Insulin Aspart 100 Units/ML 3 ML Pen SUBCUT SCH ×3 (08:21→17:02)
[2020-12-10] MEDS ORDERED: Magnesium Sulfate/Water 2 GM in Premix Bag 1 BAG IV ONE (09:10)
[2020-12-10] MEDS: DULoxetine 30 MG Cap PO SCH (09:48)
[2020-12-10] MEDS: Insulin Isophane NPH, Human 100 Units/ML 10 ML Vial SUBCUT SCH ×2 (09:48→20:49)
[2020-12-10] MEDS: Lisinopril 10 MG Tab PO SCH (09:48)
--- NOTE | 2020-12-10 12:18 | PN ---
PREOPERATIVE PROGRESS NOTE: DATE OF SURGERY: December 09, 2020. PLANNED PROCEDURE: 1. Incision and drainage, left foot. 2. Debridement and excision of bone, left foot. MEDICAL HISTORY: The patient has significant history of poorly controlled diabetes, chronic lower neuropathy, hypertension, hyperlipidemia, and obesity. ALLERGIES: No known allergies. HOME MEDICATIONS: Gabapentin 300 mg p.o. 3 times a day, lisinopril 10 mg p.o. daily, metformin hydrochloride 500 mg p.o. twice a day with meals, duloxetine 30 mg p.o. daily, pantoprazole sodium 40 mg p.o. daily, acetaminophen 650 mg p.o. q.4h p.r.n. pain. Daptomycin 1000 mg IV push daily and [facility] [place]. Ertapenem 1 g IV q.24h, NovoLog sliding scale subcutaneous 3 times a day with food, Novolin N 30 units subcu twice a day, Lipitor 20 mg p.o. at bedtime, Novolin R regular insulin as well. The patient was admitted yesterday to [facility] in coordination between Dr. Arteaga and Kerri, and MRI was conducted today revealing a tracking ulcer and osteomyelitis of the medial sesamoid on the left foot. Risks and benefits of surgery have been discussed with the patient. No guarantees have been expressed or implied. All patient questions have been asked and answered. The patient has consented in writing for the procedure today and patient is cleared for surgery by Dr. Arteaga. MONIKA / CHRISTIANO /[id number] REINA
--- NOTE | 2020-12-10 12:25 | PCM.PN ---
- Patient Data Vitals - Most Recent: Last Vital Signs Temp 36.1 C 12/10/20 11:39 Pulse 82 12/10/20 11:39 Resp 17 12/10/20 11:39 BP 116/71 12/10/20 11:39 Pulse Ox 95 12/10/20 11:39 Weight - Most Recent: 104.145 kg I&O - Last 24 Hours: Intake & Output 12/09/20 12/10/20 12/10/20 22:59 06:59 14:59 Intake Total 900 960 Output Total 300 750 Balance 600 210 Lab Results Last 24 Hours: Laboratory Results - last 24 hr 12/09/20 12/09/20 12/10/20 Range/Units 17:05 21:40 06:45 WBC (4.0-11.0) K/uL RBC (4.30-5.90) M/uL Hgb (12.0-16.0) g/dL Hct (36.0-46.0) % MCV (80.0-98.0) fL MCH (27.0-32.0) pg MCHC (31.0-37.0) g/dL RDW Std Deviation (28.0-62.0) fl RDW Coeff of Olimpia (11.0-15.0) % Plt Count (150-400) K/uL MPV (7.40-12.00) fL Neut % (Auto) (48.0-80.0) % Lymph % (Auto) (16.0-40.0) % [place] % (Auto) (0.0-15.0) % Eos % (Auto) (0.0-7.0) % Baso % (Auto) (0.0-1.5) % Neut # (Auto) (1.4-5.7) K/uL Lymph # (Auto) (0.6-2.4) K/uL [place] # (Auto) (0.0-0.8) K/uL Eos # (Auto) (0.0-0.7) K/uL Baso # (Auto) (0.0-0.1) K/uL Nucleated RBC % /100WBC Nucleated RBCs # K/uL Sodium (136-145) mmol/L Potassium (3.5-5.1) mmol/L Chloride (98-107) mmol/L Carbon Dioxide (21.0-32.0) mmol/L BUN (7.0-18.0) mg/dL Creatinine (0.6-1.0) mg/dL Est Cr Clr Drug Dosing mL/min Estimated GFR (MDRD) ml/min Glucose (74-106) mg/dL POC Glucose 119 H 124 H 135 H (70-99) mg/dL Calcium (8.5-10.1) mg/dL Phosphorus (2.6-4.7) mg/dL Magnesium (1.8-2.4) mg/dL 12/10/20 12/10/20 12/10/20 Range/Units 07:34 07:34 11:36 WBC 8.29 (4.0-11.0) K/uL RBC 4.13 L (4.30-5.90) M/uL Hgb 12.4 (12.0-16.0) g/dL Hct 37.0 (36.0-46.0) % MCV 89.6 (80.0-98.0) fL MCH 30.0 (27.0-32.0) pg MCHC 33.5 (31.0-37.0) g/dL RDW Std Deviation 43.4 (28.0-62.0) fl RDW Coeff of Olimpia 13 (11.0-15.0) % Plt Count 244 (150-400) K/uL MPV 10.60 (7.40-12.00) fL Neut % (Auto) 62.6 (48.0-80.0) % Lymph % (Auto) 23.5 (16.0-40.0) % [place] % (Auto) 9.5 (0.0-15.0) % Eos % (Auto) 4.0 (0.0-7.0) % Baso % (Auto) 0.4 (0.0-1.5) % Neut # (Auto) 5.2 (1.4-5.7) K/uL Lymph # (Auto) 2.0 (0.6-2.4) K/uL [place] # (Auto) 0.8 (0.0-0.8) K/uL Eos # (Auto) 0.3 (0.0-0.7) K/uL Baso # (Auto) 0.0 (0.0-0.1) K/uL Nucleated RBC % 0.0 /100WBC Nucleated RBCs # 0 K/uL Sodium 139 (136-145) mmol/L Potassium 4.2 (3.5-5.1) mmol/L Chloride 104 (98-107) mmol/L Carbon Dioxide 27.5 (21.0-32.0) mmol/L BUN 12 (7.0-18.0) mg/dL Creatinine 0.9 (0.6-1.0) mg/dL Est Cr Clr Drug Dosing 62.80 mL/min Estimated GFR (MDRD) > 60.0 ml/min Glucose 130 H (74-106) mg/dL POC Glucose 191 H (70-99) mg/dL Calcium 8.5 (8.5-10.1) mg/dL Phosphorus 4.4 (2.6-4.7) mg/dL Magnesium 1.7 L (1.8-2.4) mg/dL Med Orders - Current: Current Medications Acetaminophen (Acetaminophen 325 Mg Tab) 650 mg PO Q4H PRN PRN Reason: Pain (Mild 1-3)/fever Albuterol/Ipratropium (Albuterol/Ipratropium 3.0-0.5 Mg/3 Ml Neb Soln) 3 ml NEB Q4HRRT PRN PRN Reason: Shortness Of Breath/wheezing Atorvastatin Calcium (Atorvastatin 20 Mg Tab) 20 mg PO BEDTIME [facility] Last Admin: 12/09/20 21:29 Dose: 20 mg Documented by: Dextrose/Water (50% Dextrose In Water 50 Ml Syringe) 50 ml IVPUSH ASDIRECTED PRN PRN Reason: Hypoglycemia Duloxetine HCl (Duloxetine 30 Mg Cap) 30 mg PO DAILY [facility] Last Admin: 12/10/20 09:48 Dose: 30 mg Documented by: Gabapentin (Gabapentin 300 Mg Cap) 300 mg PO TID [facility] Last Admin: 12/10/20 06:04 Dose: 300 mg Documented by: Glucagon (Glucagon,Human Recombinant 1 Mg Vial) 1 mg IM ASDIRECTED PRN PRN Reason: Hypoglycemia Heparin Sodium (Porcine) (Heparin Sodium 5,000 Units/Ml Vial) 5,000 units SUBCUT Q8H [facility] Last Admin: 12/10/20 06:04 Dose: 5,000 units Documented by: Pantoprazole Sodium 40 mg/ (Sodium Chloride) 10 mls @ 300 mls/hr IV Q24H [facility] Last Admin: 12/09/20 21:29 Dose: 300 mls/hr Documented by: Vancomycin HCl 1.5 gm/ Premix 300 mls @ 200 mls/hr IV Q12H [facility] Last Admin: 12/10/20 01:14 Dose: 200 mls/hr Documented by: Piperacillin Sod/Tazobactam (Sod 4.5 gm/ Sodium Chloride) 100 mls @ 200 mls/hr IV Q6H [facility] Last Admin: 12/10/20 11:01 Dose: 200 mls/hr Documented by: Magnesium Sulfate 2 gm/ Premix 50 mls @ 12.5 mls/hr IV ONETIME ONE Stop: 12/10/20 13:09 Last Admin: 12/10/20 09:49 Dose: 12.5 mls/hr Documented by: Insulin Aspart (Insulin Aspart 100 Units/Ml 3 Ml Pen) 0 unit SUBCUT TIDAC [facility]; Protocol Last Admin: 12/10/20 11:42 Dose: 3 units Documented by: Insulin Human NPH (Insulin Isophane Nph, Human 100 Units/Ml 10 Ml Vial) 30 unit SUBCUT BID [facility] Last Admin: 12/10/20 09:48 Dose: 30 units Documented by: Lisinopril (Lisinopril 10 Mg Tab) 10 mg PO DAILY [facility] Last Admin: 12/10/20 09:48 Dose: 10 mg Documented by: Morphine Sulfate (Morphine 2 Mg/Ml Syringe) 1 mg IVPUSH Q4H PRN PRN Reason: Pain (severe 7-10) Ondansetron HCl (Ondansetron 4 Mg/2 Ml Sdv) 4 mg IVPUSH Q4H PRN PRN Reason: Nausea/Vomiting Vancomycin HCl (Pharmacy To Dose - Vancomycin) 1 dose .XX ASDIRECTED [facility] Discontinued Medications Acetaminophen (Acetaminophen 325 Mg Tab) 650 mg PO Q4H PRN PRN Reason: Pain (Mild 1-3)/fever Bupivacaine HCl (Bupivacaine 0.5% 30 Ml Sdv) Confirm Administered Dose 30 ml .ROUTE .STK-MED ONE Stop: 12/09/20 17:35 Cefazolin Sodium (Cefazolin 1 Gm Vial) Confirm Administered Dose 1 gm .ROUTE .STK-MED ONE Stop: 12/09/20 17:34 Dextrose/Water (50% Dextrose In Water 50 Ml Syringe) 50 ml IVPUSH ASDIRECTED PRN PRN Reason: Hypoglycemia Fentanyl (Fentanyl 100 Mcg/2 Ml Sdv) Confirm Administered Dose 100 mcg .ROUTE .STK-MED ONE Stop: 12/09/20 17:41 Glucagon (Glucagon,Human Recombinant 1 Mg Vial) 1 mg IM ASDIRECTED PRN PRN Reason: Hypoglycemia Glycopyrrolate (Glycopyrrolate 0.2 Mg/Ml Sdv) Confirm Administered Dose 0.2 mg .ROUTE .STK-MED ONE Stop: 12/09/20 17:44 Lactated Ringer's (Ringers, Lactated) 1,000 mls @ 999 mls/hr IV BOLUS ONE Stop: 12/08/20 22:11 Last Admin: 12/08/20 22:23 Dose: 999 mls/hr Documented by: Piperacillin Sod/Tazobactam (Sod 3.375 gm/ Sodium Chloride) 50 mls @ 100 mls/hr IV Q8H [facility] Last Admin: 12/09/20 05:11 Dose: 100 mls/hr Documented by: Vancomycin HCl 1.5 gm/ Premix 300 mls @ 200 mls/hr IV ONETIME ONE Stop: 12/08/20 23:59 Last Admin: 12/09/20 00:27 Dose: 200 mls/hr Documented by: Ketorolac Tromethamine (Ketorolac 30 Mg/Ml Sdv) Confirm Administered Dose 30 mg .ROUTE .STK-MED ONE Stop: 12/09/20 17:44 Lidocaine (Lidocaine 2% 5 Ml Sdv) Confirm Administered Dose 5 ml .ROUTE .STK-MED ONE Stop: 12/09/20 17:44 Lidocaine HCl (Lidocaine 1% 20 Ml Mdv) Confirm Administered Dose 20 ml .ROUTE .STK-MED ONE Stop: 12/09/20 17:35 Midazolam HCl (Midazolam 1 Mg/Ml 2 Ml Sdv) Confirm Administered Dose 2 mg .ROUTE .STK-MED ONE Stop: 12/09/20 17:41 Ondansetron HCl (Ondansetron 4 Mg/2 Ml Sdv) Confirm Administered Dose 4 mg .ROUTE .STK-MED ONE Stop: 12/09/20 17:44 Propofol (Propofol 200 Mg/20 Ml Sdv) Confirm Administered Dose 200 mg .ROUTE .STK-MED ONE Stop: 12/09/20 17:41 Propofol (Propofol 200 Mg/20 Ml Sdv) Confirm Administered Dose 200 mg .ROUTE .STK-MED ONE Stop: 12/09/20 18:09 Propofol (Propofol 200 Mg/20 Ml Sdv) Confirm Administered Dose 200 mg .ROUTE .STK-MED ONE Stop: 12/09/20 18:20 - Patient Data Lab Results Last 24 hrs: Laboratory Results - last 24 hr 12/09/20 12/09/20 12/10/20 Range/Units 17:05 21:40 06:45 WBC (4.0-11.0) K/uL RBC (4.30-5.90) M/uL Hgb (12.0-16.0) g/dL Hct (36.0-46.0) % MCV (80.0-98.0) fL MCH (27.0-32.0) pg MCHC (31.0-37.0) g/dL RDW Std Deviation (28.0-62.0) fl RDW Coeff of Olimpia (11.0-15.0) % Plt Count (150-400) K/uL MPV (7.40-12.00) fL Neut % (Auto) (48.0-80.0) % Lymph % (Auto) (16.0-40.0) % [place] % (Auto) (0.0-15.0) % Eos % (Auto) (0.0-7.0) % Baso % (Auto) (0.0-1.5) % Neut # (Auto) (1.4-5.7) K/uL Lymph # (Auto) (0.6-2.4) K/uL [place] # (Auto) (0.0-0.8) K/uL Eos # (Auto) (0.0-0.7) K/uL Baso # (Auto) (0.0-0.1) K/uL Nucleated RBC % /100WBC Nucleated RBCs # K/uL Sodium (136-145) mmol/L Potassium (3.5-5.1) mmol/L Chloride (98-107) mmol/L Carbon Dioxide (21.0-32.0) mmol/L BUN (7.0-18.0) mg/dL Creatinine (0.6-1.0) mg/dL Est Cr Clr Drug Dosing mL/min Estimated GFR (MDRD) ml/min Glucose (74-106) mg/dL POC Glucose 119 H 124 H 135 H (70-99) mg/dL Calcium (8.5-10.1) mg/dL Phosphorus (2.6-4.7) mg/dL Magnesium (1.8-2.4) mg/dL 12/10/20 12/10/20 12/10/20 Range/Units 07:34 07:34 11:36 WBC 8.29 (4.0-11.0) K/uL RBC 4.13 L (4.30-5.90) M/uL Hgb 12.4 (12.0-16.0) g/dL Hct 37.0 (36.0-46.0) % MCV 89.6 (80.0-98.0) fL MCH 30.0 (27.0-32.0) pg MCHC 33.5 (31.0-37.0) g/dL RDW Std Deviation 43.4 (28.0-62.0) fl RDW Coeff of Olimpia 13 (11.0-15.0) % Plt Count 244 (150-400) K/uL MPV 10.60 (7.40-12.00) fL Neut % (Auto) 62.6 (48.0-80.0) % Lymph % (Auto) 23.5 (16.0-40.0) % [place] % (Auto) 9.5 (0.0-15.0) % Eos % (Auto) 4.0 (0.0-7.0) % Baso % (Auto) 0.4 (0.0-1.5) % Neut # (Auto) 5.2 (1.4-5.7) K/uL Lymph # (Auto) 2.0 (0.6-2.4) K/uL [place] # (Auto) 0.8 (0.0-0.8) K/uL Eos # (Auto) 0.3 (0.0-0.7) K/uL Baso # (Auto) 0.0 (0.0-0.1) K/uL Nucleated RBC % 0.0 /100WBC Nucleated RBCs # 0 K/uL Sodium 139 (136-145) mmol/L Potassium 4.2 (3.5-5.1) mmol/L Chloride 104 (98-107) mmol/L Carbon Dioxide 27.5 (21.0-32.0) mmol/L BUN 12 (7.0-18.0) mg/dL Creatinine 0.9 (0.6-1.0) mg/dL Est Cr Clr Drug Dosing 62.80 mL/min Estimated GFR (MDRD) > 60.0 ml/min Glucose 130 H (74-106) mg/dL POC Glucose 191 H (70-99) mg/dL Calcium 8.5 (8.5-10.1) mg/dL Phosphorus 4.4 (2.6-4.7) mg/dL Magnesium 1.7 L (1.8-2.4) mg/dL Result Diagrams: 12/10/20 07:34 12/10/20 07:34 Sepsis Event Note - Evaluation Sepsis Screening Result: No Definite Risk - Focused Exam Vital Signs: Vital Signs Temp Pulse Resp BP BP BP Pulse Ox 12/10/20 11:39 36.1 C 82 17 116/71 95 12/10/20 09:48 117/57 L 12/10/20 07:40 36.4 C 72 16 104/61 95 12/10/20 04:00 36.8 C 78 16 117/57 L 95 12/10/20 00:45 37.0 C 82 15 129/61 94 L - My Orders Last 24 Hours: My Active Orders 12/09/20 12:30 VANCOmycin 1.5 GM/300 ML 1.5 gm Premix Bag 1 bag IV Q12H 12/09/20 21:00 atorvaSTATin [Lipitor] 20 mg PO BEDTIME 12/10/20 Breakfast [employer] Diet [DIET] 12/10/20 09:10 Magnesium Sulfate/Water [Magnesium Sulfate in Water 2 GM/50 ML] 2 gm Premix Bag 1 bag IV ONETIME - Plan Plan:: Patient is a 55-year-old female admitted for infected diabetic foot ulcer of her left foot cont broad-spectrum antibiotics Culture has already been obtained by 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
[2020-12-10] MEDS: Acetaminophen 325 MG Tab PO PRN (13:20)
--- NOTE | 2020-12-10 13:25 | PCM.PN ---
- General Info Date of Service: 12/10/20 Admission Dx/Problem (Free Text): Admission Diagnosis/Problem Admission Diagnosis/Problem Diabetic foot infection Subjective Update: Patient seen at bedside, no acute distress, resting comfortably complaining of some mild pain status post surgery of the left foot Functional Status: Reports: Pain Controlled, Tolerating Diet, Urinating. Denies: Ambulating - Review of Systems General: Denies: Fever, Weakness, Fatigue Pulmonary: Denies: Shortness of Breath, Pleuritic Chest Pain Cardiovascular: Denies: Chest Pain, Palpitations Gastrointestinal: Denies: Abdominal Pain, Constipation Genitourinary: Denies: Dysuria, Frequency, Burning Musculoskeletal: Reports: Foot Pain. Denies: Neck Pain, Shoulder Pain, Arm Pain, Leg Pain, Joint Pain Skin: Denies: Cyanosis, Jaundice, Mottled Neurological: Denies: Confusion, Dizziness, Headache - Patient Data Vitals - Most Recent: Last Vital Signs Temp 36.1 C 12/10/20 11:39 Pulse 82 12/10/20 11:39 Resp 17 12/10/20 11:39 BP 116/71 12/10/20 11:39 Pulse Ox 95 12/10/20 11:39 Weight - Most Recent: 104.145 kg I&O - Last 24 Hours: Intake & Output 12/09/20 12/10/20 12/10/20 22:59 06:59 14:59 Intake Total 900 960 Output Total 300 750 Balance 600 210 Lab Results Last 24 Hours: Laboratory Results - last 24 hr 12/09/20 12/09/20 12/10/20 Range/Units 17:05 21:40 06:45 WBC (4.0-11.0) K/uL RBC (4.30-5.90) M/uL Hgb (12.0-16.0) g/dL Hct (36.0-46.0) % MCV (80.0-98.0) fL MCH (27.0-32.0) pg MCHC (31.0-37.0) g/dL RDW Std Deviation (28.0-62.0) fl RDW Coeff of Olimpia (11.0-15.0) % Plt Count (150-400) K/uL MPV (7.40-12.00) fL Neut % (Auto) (48.0-80.0) % Lymph % (Auto) (16.0-40.0) % [place] % (Auto) (0.0-15.0) % Eos % (Auto) (0.0-7.0) % Baso % (Auto) (0.0-1.5) % Neut # (Auto) (1.4-5.7) K/uL Lymph # (Auto) (0.6-2.4) K/uL [place] # (Auto) (0.0-0.8) K/uL Eos # (Auto) (0.0-0.7) K/uL Baso # (Auto) (0.0-0.1) K/uL Nucleated RBC % /100WBC Nucleated RBCs # K/uL Sodium (136-145) mmol/L Potassium (3.5-5.1) mmol/L Chloride (98-107) mmol/L Carbon Dioxide (21.0-32.0) mmol/L BUN (7.0-18.0) mg/dL Creatinine (0.6-1.0) mg/dL Est Cr Clr Drug Dosing mL/min Estimated GFR (MDRD) ml/min Glucose (74-106) mg/dL POC Glucose 119 H 124 H 135 H (70-99) mg/dL Calcium (8.5-10.1) mg/dL Phosphorus (2.6-4.7) mg/dL Magnesium (1.8-2.4) mg/dL Vancomycin Trough (5.0-10.0) ug/mL 12/10/20 12/10/20 12/10/20 Range/Units 07:34 07:34 11:36 WBC 8.29 (4.0-11.0) K/uL RBC 4.13 L (4.30-5.90) M/uL Hgb 12.4 (12.0-16.0) g/dL Hct 37.0 (36.0-46.0) % MCV 89.6 (80.0-98.0) fL MCH 30.0 (27.0-32.0) pg MCHC 33.5 (31.0-37.0) g/dL RDW Std Deviation 43.4 (28.0-62.0) fl RDW Coeff of Olimpia 13 (11.0-15.0) % Plt Count 244 (150-400) K/uL MPV 10.60 (7.40-12.00) fL Neut % (Auto) 62.6 (48.0-80.0) % Lymph % (Auto) 23.5 (16.0-40.0) % [place] % (Auto) 9.5 (0.0-15.0) % Eos % (Auto) 4.0 (0.0-7.0) % Baso % (Auto) 0.4 (0.0-1.5) % Neut # (Auto) 5.2 (1.4-5.7) K/uL Lymph # (Auto) 2.0 (0.6-2.4) K/uL [place] # (Auto) 0.8 (0.0-0.8) K/uL Eos # (Auto) 0.3 (0.0-0.7) K/uL Baso # (Auto) 0.0 (0.0-0.1) K/uL Nucleated RBC % 0.0 /100WBC Nucleated RBCs # 0 K/uL Sodium 139 (136-145) mmol/L Potassium 4.2 (3.5-5.1) mmol/L Chloride 104 (98-107) mmol/L Carbon Dioxide 27.5 (21.0-32.0) mmol/L BUN 12 (7.0-18.0) mg/dL Creatinine 0.9 (0.6-1.0) mg/dL Est Cr Clr Drug Dosing 62.80 mL/min Estimated GFR (MDRD) > 60.0 ml/min Glucose 130 H (74-106) mg/dL POC Glucose 191 H (70-99) mg/dL Calcium 8.5 (8.5-10.1) mg/dL Phosphorus 4.4 (2.6-4.7) mg/dL Magnesium 1.7 L (1.8-2.4) mg/dL Vancomycin Trough (5.0-10.0) ug/mL 12/10/20 Range/Units 11:37 WBC (4.0-11.0) K/uL RBC (4.30-5.90) M/uL Hgb (12.0-16.0) g/dL Hct (36.0-46.0) % MCV (80.0-98.0) fL MCH (27.0-32.0) pg MCHC (31.0-37.0) g/dL RDW Std Deviation (28.0-62.0) fl RDW Coeff of Olimpia (11.0-15.0) % Plt Count (150-400) K/uL MPV (7.40-12.00) fL Neut % (Auto) (48.0-80.0) % Lymph % (Auto) (16.0-40.0) % [place] % (Auto) (0.0-15.0) % Eos % (Auto) (0.0-7.0) % Baso % (Auto) (0.0-1.5) % Neut # (Auto) (1.4-5.7) K/uL Lymph # (Auto) (0.6-2.4) K/uL [place] # (Auto) (0.0-0.8) K/uL Eos # (Auto) (0.0-0.7) K/uL Baso # (Auto) (0.0-0.1) K/uL Nucleated RBC % /100WBC Nucleated RBCs # K/uL Sodium (136-145) mmol/L Potassium (3.5-5.1) mmol/L Chloride (98-107) mmol/L Carbon Dioxide (21.0-32.0) mmol/L BUN (7.0-18.0) mg/dL Creatinine (0.6-1.0) mg/dL Est Cr Clr Drug Dosing mL/min Estimated GFR (MDRD) ml/min Glucose (74-106) mg/dL POC Glucose (70-99) mg/dL Calcium (8.5-10.1) mg/dL Phosphorus (2.6-4.7) mg/dL Magnesium (1.8-2.4) mg/dL Vancomycin Trough 16.5 H (5.0-10.0) ug/mL Med Orders - Current: Current Medications Acetaminophen (Acetaminophen 325 Mg Tab) 650 mg PO Q4H PRN PRN Reason: Pain (Mild 1-3)/fever Albuterol/Ipratropium (Albuterol/Ipratropium 3.0-0.5 Mg/3 Ml Neb Soln) 3 ml NEB Q4HRRT PRN PRN Reason: Shortness Of Breath/wheezing Atorvastatin Calcium (Atorvastatin 20 Mg Tab) 20 mg PO BEDTIME [facility] Last Admin: 12/09/20 21:29 Dose: 20 mg Documented by: Dextrose/Water (50% Dextrose In Water 50 Ml Syringe) 50 ml IVPUSH ASDIRECTED PRN PRN Reason: Hypoglycemia Duloxetine HCl (Duloxetine 30 Mg Cap) 30 mg PO DAILY [facility] Last Admin: 12/10/20 09:48 Dose: 30 mg Documented by: Gabapentin (Gabapentin 300 Mg Cap) 300 mg PO TID [facility] Last Admin: 12/10/20 06:04 Dose: 300 mg Documented by: Glucagon (Glucagon,Human Recombinant 1 Mg Vial) 1 mg IM ASDIRECTED PRN PRN Reason: Hypoglycemia Heparin Sodium (Porcine) (Heparin Sodium 5,000 Units/Ml Vial) 5,000 units SUBCUT Q8H [facility] Last Admin: 12/10/20 06:04 Dose: 5,000 units Documented by: Pantoprazole Sodium 40 mg/ (Sodium Chloride) 10 mls @ 300 mls/hr IV Q24H [facility] Last Admin: 12/09/20 21:29 Dose: 300 mls/hr Documented by: Vancomycin HCl 1.5 gm/ Premix 300 mls @ 200 mls/hr IV Q12H [facility] Last Admin: 12/10/20 01:14 Dose: 200 mls/hr Documented by: Piperacillin Sod/Tazobactam (Sod 4.5 gm/ Sodium Chloride) 100 mls @ 200 mls/hr IV Q6H [facility] Last Admin: 12/10/20 11:01 Dose: 200 mls/hr Documented by: Insulin Aspart (Insulin Aspart 100 Units/Ml 3 Ml Pen) 0 unit SUBCUT TIDAC [facility]; Protocol Last Admin: 12/10/20 11:42 Dose: 3 units Documented by: Insulin Human NPH (Insulin Isophane Nph, Human 100 Units/Ml 10 Ml Vial) 30 unit SUBCUT BID [facility] Last Admin: 12/10/20 09:48 Dose: 30 units Documented by: Lisinopril (Lisinopril 10 Mg Tab) 10 mg PO DAILY [facility] Last Admin: 12/10/20 09:48 Dose: 10 mg Documented by: Morphine Sulfate (Morphine 2 Mg/Ml Syringe) 1 mg IVPUSH Q4H PRN PRN Reason: Pain (severe 7-10) Ondansetron HCl (Ondansetron 4 Mg/2 Ml Sdv) 4 mg IVPUSH Q4H PRN PRN Reason: Nausea/Vomiting Vancomycin HCl (Pharmacy To Dose - Vancomycin) 1 dose .XX ASDIRECTED МАРИНА Discontinued Medications Acetaminophen (Acetaminophen 325 Mg Tab) 650 mg PO Q4H PRN PRN Reason: Pain (Mild 1-3)/fever Bupivacaine HCl (Bupivacaine 0.5% 30 Ml Sdv) Confirm Administered Dose 30 ml .ROUTE .STK-MED ONE Stop: 12/09/20 17:35 Cefazolin Sodium (Cefazolin 1 Gm Vial) Confirm Administered Dose 1 gm .ROUTE .STK-MED ONE Stop: 12/09/20 17:34 Dextrose/Water (50% Dextrose In Water 50 Ml Syringe) 50 ml IVPUSH ASDIRECTED PRN PRN Reason: Hypoglycemia Fentanyl (Fentanyl 100 Mcg/2 Ml Sdv) Confirm Administered Dose 100 mcg .ROUTE .STK-MED ONE Stop: 12/09/20 17:41 Glucagon (Glucagon,Human Recombinant 1 Mg Vial) 1 mg IM ASDIRECTED PRN PRN Reason: Hypoglycemia Glycopyrrolate (Glycopyrrolate 0.2 Mg/Ml Sdv) Confirm Administered Dose 0.2 mg .ROUTE .STK-MED ONE Stop: 12/09/20 17:44 Lactated Ringer's (Ringers, Lactated) 1,000 mls @ 999 mls/hr IV BOLUS ONE Stop: 12/08/20 22:11 Last Admin: 12/08/20 22:23 Dose: 999 mls/hr Documented by: Piperacillin Sod/Tazobactam (Sod 3.375 gm/ Sodium Chloride) 50 mls @ 100 mls/hr IV Q8H [facility] Last Admin: 12/09/20 05:11 Dose: 100 mls/hr Documented by: Vancomycin HCl 1.5 gm/ Premix 300 mls @ 200 mls/hr IV ONETIME ONE Stop: 12/08/20 23:59 Last Admin: 12/09/20 00:27 Dose: 200 mls/hr Documented by: Magnesium Sulfate 2 gm/ Premix 50 mls @ 12.5 mls/hr IV ONETIME ONE Stop: 12/10/20 13:09 Last Admin: 12/10/20 09:49 Dose: 12.5 mls/hr Documented by: Ketorolac Tromethamine (Ketorolac 30 Mg/Ml Sdv) Confirm Administered Dose 30 mg .ROUTE .STK-MED ONE Stop: 12/09/20 17:44 Lidocaine (Lidocaine 2% 5 Ml Sdv) Confirm Administered Dose 5 ml .ROUTE .STK-MED ONE Stop: 12/09/20 17:44 Lidocaine HCl (Lidocaine 1% 20 Ml Mdv) Confirm Administered Dose 20 ml .ROUTE .STK-MED ONE Stop: 12/09/20 17:35 Midazolam HCl (Midazolam 1 Mg/Ml 2 Ml Sdv) Confirm Administered Dose 2 mg .ROUTE .STK-MED ONE Stop: 12/09/20 17:41 Ondansetron HCl (Ondansetron 4 Mg/2 Ml Sdv) Confirm Administered Dose 4 mg .ROUTE .STK-MED ONE Stop: 12/09/20 17:44 Propofol (Propofol 200 Mg/20 Ml Sdv) Confirm Administered Dose 200 mg .ROUTE .STK-MED ONE Stop: 12/09/20 17:41 Propofol (Propofol 200 Mg/20 Ml Sdv) Confirm Administered Dose 200 mg .ROUTE .STK-MED ONE Stop: 12/09/20 18:09 Propofol (Propofol 200 Mg/20 Ml Sdv) Confirm Administered Dose 200 mg .ROUTE .STK-MED ONE Stop: 12/09/20 18:20 - Exam General: Alert, Oriented, Cooperative Lungs: Clear to Auscultation, Normal Respiratory Effort Cardiovascular: Regular Rate, Regular Rhythm GI/Abdominal Exam: Normal Bowel Sounds, Soft, Non-Tender Extremities: Other (Left foot is covered in dressing which is clean and dry no overt drainage noted, will assess the wound once podiatry comes to change the dressing) - Patient Data Lab Results Last 24 hrs: Laboratory Results - last 24 hr 12/09/20 12/09/20 12/10/20 Range/Units 17:05 21:40 06:45 WBC (4.0-11.0) K/uL RBC (4.30-5.90) M/uL Hgb (12.0-16.0) g/dL Hct (36.0-46.0) % MCV (80.0-98.0) fL MCH (27.0-32.0) pg MCHC (31.0-37.0) g/dL RDW Std Deviation (28.0-62.0) fl RDW Coeff of Olimpia (11.0-15.0) % Plt Count (150-400) K/uL MPV (7.40-12.00) fL Neut % (Auto) (48.0-80.0) % Lymph % (Auto) (16.0-40.0) % [place] % (Auto) (0.0-15.0) % Eos % (Auto) (0.0-7.0) % Baso % (Auto) (0.0-1.5) % Neut # (Auto) (1.4-5.7) K/uL Lymph # (Auto) (0.6-2.4) K/uL [place] # (Auto) (0.0-0.8) K/uL Eos # (Auto) (0.0-0.7) K/uL Baso # (Auto) (0.0-0.1) K/uL Nucleated RBC % /100WBC Nucleated RBCs # K/uL Sodium (136-145) mmol/L Potassium (3.5-5.1) mmol/L Chloride (98-107) mmol/L Carbon Dioxide (21.0-32.0) mmol/L BUN (7.0-18.0) mg/dL Creatinine (0.6-1.0) mg/dL Est Cr Clr Drug Dosing mL/min Estimated GFR (MDRD) ml/min Glucose (74-106) mg/dL POC Glucose 119 H 124 H 135 H (70-99) mg/dL Calcium (8.5-10.1) mg/dL Phosphorus (2.6-4.7) mg/dL Magnesium (1.8-2.4) mg/dL Vancomycin Trough (5.0-10.0) ug/mL 12/10/20 12/10/20 12/10/20 Range/Units 07:34 07:34 11:36 WBC 8.29 (4.0-11.0) K/uL RBC 4.13 L (4.30-5.90) M/uL Hgb 12.4 (12.0-16.0) g/dL Hct 37.0 (36.0-46.0) % MCV 89.6 (80.0-98.0) fL MCH 30.0 (27.0-32.0) pg MCHC 33.5 (31.0-37.0) g/dL RDW Std Deviation 43.4 (28.0-62.0) fl RDW Coeff of Olimpia 13 (11.0-15.0) % Plt Count 244 (150-400) K/uL MPV 10.60 (7.40-12.00) fL Neut % (Auto) 62.6 (48.0-80.0) % Lymph % (Auto) 23.5 (16.0-40.0) % [place] % (Auto) 9.5 (0.0-15.0) % Eos % (Auto) 4.0 (0.0-7.0) % Baso % (Auto) 0.4 (0.0-1.5) % Neut # (Auto) 5.2 (1.4-5.7) K/uL Lymph # (Auto) 2.0 (0.6-2.4) K/uL [place] # (Auto) 0.8 (0.0-0.8) K/uL Eos # (Auto) 0.3 (0.0-0.7) K/uL Baso # (Auto) 0.0 (0.0-0.1) K/uL Nucleated RBC % 0.0 /100WBC Nucleated RBCs # 0 K/uL Sodium 139 (136-145) mmol/L Potassium 4.2 (3.5-5.1) mmol/L Chloride 104 (98-107) mmol/L Carbon Dioxide 27.5 (21.0-32.0) mmol/L BUN 12 (7.0-18.0) mg/dL Creatinine 0.9 (0.6-1.0) mg/dL Est Cr Clr Drug Dosing 62.80 mL/min Estimated GFR (MDRD) > 60.0 ml/min Glucose 130 H (74-106) mg/dL POC Glucose 191 H (70-99) mg/dL Calcium 8.5 (8.5-10.1) mg/dL Phosphorus 4.4 (2.6-4.7) mg/dL Magnesium 1.7 L (1.8-2.4) mg/dL Vancomycin Trough (5.0-10.0) ug/mL 12/10/20 Range/Units 11:37 WBC (4.0-11.0) K/uL RBC (4.30-5.90) M/uL Hgb (12.0-16.0) g/dL Hct (36.0-46.0) % MCV (80.0-98.0) fL MCH (27.0-32.0) pg MCHC (31.0-37.0) g/dL RDW Std Deviation (28.0-62.0) fl RDW Coeff of Olimpia (11.0-15.0) % Plt Count (150-400) K/uL MPV (7.40-12.00) fL Neut % (Auto) (48.0-80.0) % Lymph % (Auto) (16.0-40.0) % [place] % (Auto) (0.0-15.0) % Eos % (Auto) (0.0-7.0) % Baso % (Auto) (0.0-1.5) % Neut # (Auto) (1.4-5.7) K/uL Lymph # (Auto) (0.6-2.4) K/uL [place] # (Auto) (0.0-0.8) K/uL Eos # (Auto) (0.0-0.7) K/uL Baso # (Auto) (0.0-0.1) K/uL Nucleated RBC % /100WBC Nucleated RBCs # K/uL Sodium (136-145) mmol/L Potassium (3.5-5.1) mmol/L Chloride (98-107) mmol/L Carbon Dioxide (21.0-32.0) mmol/L BUN (7.0-18.0) mg/dL Creatinine (0.6-1.0) mg/dL Est Cr Clr Drug Dosing mL/min Estimated GFR (MDRD) ml/min Glucose (74-106) mg/dL POC Glucose (70-99) mg/dL Calcium (8.5-10.1) mg/dL Phosphorus (2.6-4.7) mg/dL Magnesium (1.8-2.4) mg/dL Vancomycin Trough 16.5 H (5.0-10.0) ug/mL Result Diagrams: 12/10/20 07:34 12/10/20 07:34 Sepsis Event Note - Evaluation Sepsis Screening Result: No Definite Risk - Focused Exam Vital Signs: Vital Signs Temp Pulse Resp BP BP BP Pulse Ox 12/10/20 11:39 36.1 C 82 17 116/71 95 12/10/20 09:48 117/57 L 12/10/20 07:40 36.4 C 72 16 104/61 95 12/10/20 04:00 36.8 C 78 16 117/57 L 95 - Problem List Review Problem List Initiated/Reviewed/Updated: Yes - My Orders Last 24 Hours: My Active Orders 12/09/20 12:30 VANCOmycin 1.5 GM/300 ML 1.5 gm Premix Bag 1 bag IV Q12H 12/09/20 21:00 atorvaSTATin [Lipitor] 20 mg PO BEDTIME 12/10/20 Breakfast [employer] Diet [DIET] 12/11/20 23:45 VANCOMYCIN TROUGH [CHEM] Routine - Plan Plan:: Patient is a 55-year-old female admitted for infected diabetic foot ulcer of her left foot Status post I&D, medial sesamoid bone has been excised, culture has been sent for sensitivity cont broad-spectrum antibiotics previous cultures growing Klebsiella, For pain control start IV morphine as needed Continue gabapentin for neuropathy Sliding scale insulin for diabetes, DuoNebs as needed for shortness of breath Resume home meds as appropriate Appreciate recommendations of podiatry
[2020-12-10] MEDS: atorvaSTATin 20 MG Tab PO SCH (20:41)
[2020-12-10] MEDS: Pantoprazole 40 MG in Sodium Chloride 0.9% 10 ML IV SCH (20:43)
--- NOTE | 2020-12-11 01:24 | PCM.CONSN ---
- General Info Date of Service: 12/10/20 (patient seen at 11:00 a.m.) Admission Dx/Problem (Free Text): Admission Diagnosis/Problem Admission Diagnosis/Problem Diabetic foot infection Subjective Update: Patient seen at bedside, no acute distress, and states she now has some tingling/mild pain in left foot. - Patient Data Vitals - Most Recent: Last Vital Signs Temp 36.8 C 12/10/20 23:44 Pulse 76 12/10/20 23:44 Resp 18 12/10/20 23:44 BP 120/68 12/10/20 23:44 Pulse Ox 94 L 12/10/20 23:44 Weight - Most Recent: 104.145 kg I&O - Last 24 Hours: Intake & Output 12/10/20 12/10/20 12/11/20 14:59 22:59 06:59 Intake Total 1660 Output Total 950 Balance 710 Lab Results Last 24 Hours: Laboratory Results - last 24 hr 12/10/20 12/10/20 12/10/20 Range/Units 06:45 07:34 07:34 WBC 8.29 (4.0-11.0) K/uL RBC 4.13 L (4.30-5.90) M/uL Hgb 12.4 (12.0-16.0) g/dL Hct 37.0 (36.0-46.0) % MCV 89.6 (80.0-98.0) fL MCH 30.0 (27.0-32.0) pg MCHC 33.5 (31.0-37.0) g/dL RDW Std Deviation 43.4 (28.0-62.0) fl RDW Coeff of [place]lim[place] 13 (11.0-15.0) % Plt Count 244 (150-400) K/uL MPV 10.60 (7.40-12.00) fL Neut % (Auto) 62.6 (48.0-80.0) % Lymph % (Auto) 23.5 (16.0-40.0) % [place] % (Auto) 9.5 (0.0-15.0) % Eos % (Auto) 4.0 (0.0-7.0) % Baso % (Auto) 0.4 (0.0-1.5) % Neut # (Auto) 5.2 (1.4-5.7) K/uL Lymph # (Auto) 2.0 (0.6-2.4) K/uL [place] # (Auto) 0.8 (0.0-0.8) K/uL Eos # (Auto) 0.3 (0.0-0.7) K/uL Baso # (Auto) 0.0 (0.0-0.1) K/uL Nucleated RBC % 0.0 /100WBC Nucleated RBCs # 0 K/uL Sodium 139 (136-145) mmol/L Potassium 4.2 (3.5-5.1) mmol/L Chloride 104 (98-107) mmol/L Carbon Dioxide 27.5 (21.0-32.0) mmol/L BUN 12 (7.0-18.0) mg/dL Creatinine 0.9 (0.6-1.0) mg/dL Est Cr Clr Drug Dosing 62.80 mL/min Estimated GFR (MDRD) > 60.0 ml/min Glucose 130 H (74-106) mg/dL POC Glucose 135 H (70-99) mg/dL Calcium 8.5 (8.5-10.1) mg/dL Phosphorus 4.4 (2.6-4.7) mg/dL Magnesium 1.7 L (1.8-2.4) mg/dL Vancomycin Trough (5.0-10.0) ug/mL 12/10/20 12/10/20 12/10/20 Range/Units 11:36 11:37 17:01 WBC (4.0-11.0) K/uL RBC (4.30-5.90) M/uL Hgb (12.0-16.0) g/dL Hct (36.0-46.0) % MCV (80.0-98.0) fL MCH (27.0-32.0) pg MCHC (31.0-37.0) g/dL RDW Std Deviation (28.0-62.0) fl RDW Coeff of [place] (11.0-15.0) % Plt Count (150-400) K/uL MPV (7.40-12.00) fL Neut % (Auto) (48.0-80.0) % Lymph % (Auto) (16.0-40.0) % [place] % (Auto) (0.0-15.0) % Eos % (Auto) (0.0-7.0) % Baso % (Auto) (0.0-1.5) % Neut # (Auto) (1.4-5.7) K/uL Lymph # (Auto) (0.6-2.4) K/uL [place] # (Auto) (0.0-0.8) K/uL Eos # (Auto) (0.0-0.7) K/uL Baso # (Auto) (0.0-0.1) K/uL Nucleated RBC % /100WBC Nucleated RBCs # K/uL Sodium (136-145) mmol/L Potassium (3.5-5.1) mmol/L Chloride (98-107) mmol/L Carbon Dioxide (21.0-32.0) mmol/L BUN (7.0-18.0) mg/dL Creatinine (0.6-1.0) mg/dL Est Cr Clr Drug Dosing mL/min Estimated GFR (MDRD) ml/min Glucose (74-106) mg/dL POC Glucose 191 H 168 H (70-99) mg/dL Calcium (8.5-10.1) mg/dL Phosphorus (2.6-4.7) mg/dL Magnesium (1.8-2.4) mg/dL Vancomycin Trough 16.5 H (5.0-10.0) ug/mL 12/10/20 Range/Units 20:08 WBC (4.0-11.0) K/uL RBC (4.30-5.90) M/uL Hgb (12.0-16.0) g/dL Hct (36.0-46.0) % MCV (80.0-98.0) fL MCH (27.0-32.0) pg MCHC (31.0-37.0) g/dL RDW Std Deviation (28.0-62.0) fl RDW Coeff of [place] (11.0-15.0) % Plt Count (150-400) K/uL MPV (7.40-12.00) fL Neut % (Auto) (48.0-80.0) % Lymph % (Auto) (16.0-40.0) % [place] % (Auto) (0.0-15.0) % Eos % (Auto) (0.0-7.0) % Baso % (Auto) (0.0-1.5) % Neut # (Auto) (1.4-5.7) K/uL Lymph # (Auto) (0.6-2.4) K/uL [place] # (Auto) (0.0-0.8) K/uL Eos # (Auto) (0.0-0.7) K/uL Baso # (Auto) (0.0-0.1) K/uL Nucleated RBC % /100WBC Nucleated RBCs # K/uL Sodium (136-145) mmol/L Potassium (3.5-5.1) mmol/L Chloride (98-107) mmol/L Carbon Dioxide (21.0-32.0) mmol/L BUN (7.0-18.0) mg/dL Creatinine (0.6-1.0) mg/dL Est Cr Clr Drug Dosing mL/min Estimated GFR (MDRD) ml/min Glucose (74-106) mg/dL POC Glucose 208 H (70-99) mg/dL Calcium (8.5-10.1) mg/dL Phosphorus (2.6-4.7) mg/dL Magnesium (1.8-2.4) mg/dL Vancomycin Trough (5.0-10.0) ug/mL Med Orders - Current: Current Medications Acetaminophen (Acetaminophen 325 Mg Tab) 650 mg PO Q4H PRN PRN Reason: Pain (Mild 1-3)/fever Last Admin: 12/10/20 13:20 Dose: 650 mg Documented by: Albuterol/Ipratropium (Albuterol/Ipratropium 3.0-0.5 Mg/3 Ml Neb Soln) 3 ml NEB Q4HRRT PRN PRN Reason: Shortness Of Breath/wheezing Atorvastatin Calcium (Atorvastatin 20 Mg Tab) 20 mg PO BEDTIME [facility] Last Admin: 12/10/20 20:41 Dose: 20 mg Documented by: Dextrose/Water (50% Dextrose In Water 50 Ml Syringe) 50 ml IVPUSH ASDIRECTED PRN PRN Reason: Hypoglycemia Duloxetine HCl (Duloxetine 30 Mg Cap) 30 mg PO DAILY [facility] Last Admin: 12/10/20 09:48 Dose: 30 mg Documented by: Gabapentin (Gabapentin 300 Mg Cap) 300 mg PO TID [facility] Last Admin: 12/10/20 22:00 Dose: 300 mg Documented by: Glucagon (Glucagon,Human Recombinant 1 Mg Vial) 1 mg IM ASDIRECTED PRN PRN Reason: Hypoglycemia Heparin Sodium (Porcine) (Heparin Sodium 5,000 Units/Ml Vial) 5,000 units SUBCUT Q8H [facility] Last Admin: 12/10/20 20:42 Dose: 5,000 units Documented by: Pantoprazole Sodium 40 mg/ (Sodium Chloride) 10 mls @ 300 mls/hr IV Q24H [facility] Last Admin: 12/10/20 20:43 Dose: 300 mls/hr Documented by: Vancomycin HCl 1.5 gm/ Premix 300 mls @ 200 mls/hr IV Q12H [facility] Last Admin: 12/10/20 23:36 Dose: 200 mls/hr Documented by: Piperacillin Sod/Tazobactam (Sod 4.5 gm/ Sodium Chloride) 100 mls @ 200 mls/hr IV Q6H [facility] Last Admin: 12/10/20 21:59 Dose: 200 mls/hr Documented by: Insulin Aspart (Insulin Aspart 100 Units/Ml 3 Ml Pen) 0 unit SUBCUT TIDAC [facility]; Protocol Last Admin: 12/10/20 17:02 Dose: 3 units Documented by: Insulin Human NPH (Insulin Isophane Nph, Human 100 Units/Ml 10 Ml Vial) 30 unit SUBCUT BID [facility] Last Admin: 12/10/20 20:49 Dose: 30 units Documented by: Lisinopril (Lisinopril 10 Mg Tab) 10 mg PO DAILY [facility] Last Admin: 12/10/20 09:48 Dose: 10 mg Documented by: Morphine Sulfate (Morphine 2 Mg/Ml Syringe) 1 mg IVPUSH Q4H PRN PRN Reason: Pain (severe 7-10) Ondansetron HCl (Ondansetron 4 Mg/2 Ml Sdv) 4 mg IVPUSH Q4H PRN PRN Reason: Nausea/Vomiting Vancomycin HCl (Pharmacy To Dose - Vancomycin) 1 dose .XX ASDIRECTED [facility] Discontinued Medications Acetaminophen (Acetaminophen 325 Mg Tab) 650 mg PO Q4H PRN PRN Reason: Pain (Mild 1-3)/fever Bupivacaine HCl (Bupivacaine 0.5% 30 Ml Sdv) Confirm Administered Dose 30 ml .ROUTE .[facility]-MED ONE Stop: 12/09/20 17:35 Cefazolin Sodium (Cefazolin 1 Gm Vial) Confirm Administered Dose 1 gm .ROUTE .STK-MED ONE Stop: 12/09/20 17:34 Dextrose/Water (50% Dextrose In Water 50 Ml Syringe) 50 ml IVPUSH ASDIRECTED PRN PRN Reason: Hypoglycemia Fentanyl (Fentanyl 100 Mcg/2 Ml Sdv) Confirm Administered Dose 100 mcg .ROUTE .STK-MED ONE Stop: 12/09/20 17:41 Glucagon (Glucagon,Human Recombinant 1 Mg Vial) 1 mg IM ASDIRECTED PRN PRN Reason: Hypoglycemia Glycopyrrolate (Glycopyrrolate 0.2 Mg/Ml Sdv) Confirm Administered Dose 0.2 mg .ROUTE .STK-MED ONE Stop: 12/09/20 17:44 Lactated Ringer's (Ringers, Lactated) 1,000 mls @ 999 mls/hr IV BOLUS ONE Stop: 12/08/20 22:11 Last Admin: 12/08/20 22:23 Dose: 999 mls/hr Documented by: Piperacillin Sod/Tazobactam (Sod 3.375 gm/ Sodium Chloride) 50 mls @ 100 mls/hr IV Q8H [facility] Last Admin: 12/09/20 05:11 Dose: 100 mls/hr Documented by: Vancomycin HCl 1.5 gm/ Premix 300 mls @ 200 mls/hr IV ONETIME ONE Stop: 12/08/20 23:59 Last Admin: 12/09/20 00:27 Dose: 200 mls/hr Documented by: Magnesium Sulfate 2 gm/ Premix 50 mls @ 12.5 mls/hr IV ONETIME ONE Stop: 12/10/20 13:09 Last Admin: 12/10/20 09:49 Dose: 12.5 mls/hr Documented by: Ketorolac Tromethamine (Ketorolac 30 Mg/Ml Sdv) Confirm Administered Dose 30 mg .ROUTE .STK-MED ONE Stop: 12/09/20 17:44 Lidocaine (Lidocaine 2% 5 Ml Sdv) Confirm Administered Dose 5 ml .ROUTE .STK-MED ONE Stop: 12/09/20 17:44 Lidocaine HCl (Lidocaine 1% 20 Ml Mdv) Confirm Administered Dose 20 ml .ROUTE .STK-MED ONE Stop: 12/09/20 17:35 Midazolam HCl (Midazolam 1 Mg/Ml 2 Ml Sdv) Confirm Administered Dose 2 mg .ROUTE .STK-MED ONE Stop: 12/09/20 17:41 Ondansetron HCl (Ondansetron 4 Mg/2 Ml Sdv) Confirm Administered Dose 4 mg .ROUTE .STK-MED ONE Stop: 12/09/20 17:44 Propofol (Propofol 200 Mg/20 Ml Sdv) Confirm Administered Dose 200 mg .ROUTE .STK-MED ONE Stop: 12/09/20 17:41 Propofol (Propofol 200 Mg/20 Ml Sdv) Confirm Administered Dose 200 mg .ROUTE .STK-MED ONE Stop: 12/09/20 18:09 Propofol (Propofol 200 Mg/20 Ml Sdv) Confirm Administered Dose 200 mg .ROUTE .STK-MED ONE Stop: 12/09/20 18:20 - Exam Extremities: Other (left foot, reduced erythema, dressings intact, strikethrough to gauze layer and inner kerlix roll of dressings which are intact, moderate serous drainage present, sutures providing partial closure are intact) Peripheral Pulses: 1+: Posterior Tibial (L), Dorsalis Pedis (L) Sepsis Event Note - Evaluation Sepsis Screening Result: No Definite Risk - Focused Exam Vital Signs: Vital Signs Temp Pulse Resp BP Pulse Ox Pulse Ox 12/10/20 23:44 36.8 C 76 18 120/68 94 L 12/10/20 21:29 94 L 12/10/20 20:06 36.6 C 84 18 119/87 94 L 12/10/20 16:19 36.6 C 85 17 114/59 L 92 L Consult PN Assessment/Plan Procedures: Procedures ASSAY OF CK (CPK) (08/24/20) ASSAY OF LACTIC ACID (08/24/20) ASSAY OF MAGNESIUM (08/16/20) ASSAY OF PHOSPHORUS (08/16/20) ASSAY OF VANCOMYCIN (08/24/20) BLOOD CULTURE FOR BACTERIA (08/24/20) C-REACTIVE PROTEIN (08/24/20) COMPLETE CBC W/AUTO DIFF WBC (08/24/20) COMPREHEN METABOLIC PANEL (08/24/20) CT LOWER EXTREMITY W/O DYE (08/24/20) EMERGENCY DEPT VISIT (08/24/20) EXTREMITY STUDY (08/16/20) GLUCOSE BLOOD TEST (08/24/20) GLYCOSYLATED HEMOGLOBIN TEST (08/24/20) METABOLIC PANEL TOTAL CA (08/24/20) OFFICE O/P EST MINIMAL PROB (11/27/20) PT EVAL LOW COMPLEX 20 MIN (08/24/20) RBC SED RATE AUTOMATED (08/24/20) ROUTINE VENIPUNCTURE (08/24/20) SARS-COV-2 COVID-19 AMP PRB (08/24/20) THER/PROPH/DIAG INJ IV PUSH (11/27/20) THER/PROPH/DIAG INJ SC/IM (08/24/20) THER/PROPH/DIAG IV INF ADDON (08/24/20) THER/PROPH/DIAG IV INF INIT (11/27/20) TX/PRO/DX INJ NEW DRUG ADDON (11/27/20) TX/PRO/DX INJ SAME DRUG SILVERER (08/24/20) TX/PROPH/DG ADDL SEQ IV INF (08/24/20) URINALYSIS AUTO W/SCOPE (08/24/20) X-RAY EXAM CHEST 1 VIEW (08/24/20) X-RAY EXAM OF FOOT (08/23/20) status post 1 day of I&D and excision of medial sesamoid left foot (1) Diabetic foot ulcer SNOMED Code(s): 235635358 Code(s): E11.621 - TYPE 2 DIABETES MELLITUS WITH FOOT ULCER; L97.509 - NON- PRESSURE CHRONIC ULCER OTH PRT UNSP FOOT W UNSP SEVERITY Current Visit: No Qualifiers: Diabetes mellitus type: type 2 Laterality: left Non-pressure ulcer stage: with necrosis of muscle Problem List Initiated/Reviewed/Updated: Yes Plan: 1. Patient seen and examined. 2. Dressing change performed. Packing removed, saline flush performed, right foot surgical site repacked and new dressing applied. 3. Cultures pending from OR but I faxed result of latest culture and sensitivity, taken in my office 12/07/20, which also grew Klebsiella. 4. Continue IV antibiotics. 5. Will follow.
[2020-12-11] MEDS: Gabapentin 300 MG Cap PO SCH ×3 (05:07→22:14)
[2020-12-11] MEDS: Piperacillin/Tazobactam 4.5 GM in Sodium Chloride 0.9% 100 ML IV SCH ×4 (05:08→22:15)
[2020-12-11] MEDS: Heparin Sodium 5,000 Units/ML Vial SUBCUT SCH ×3 (05:14→20:30)
[2020-12-11] MEDS: Insulin Aspart 100 Units/ML 3 ML Pen SUBCUT SCH ×3 (07:40→17:27)
[2020-12-11 07:55] LABS: BLOOD UREA NITROGEN,BUN 16 mg/dL (7.0-18.0); CARBON DIOXIDE,CO2 26.9 mmol/L (21.0-32.0); CHLORIDE,CL 104 mmol/L (98-107); GLUCOSE RANDOM 131 mg/dL (74-106); POTASSIUM,K 4.3 mmol/L (3.5-5.1); SODIUM,NA 140 mmol/L (136-145)
[2020-12-11] MEDS: Lisinopril 10 MG Tab PO SCH (09:23)
[2020-12-11] MEDS: DULoxetine 30 MG Cap PO SCH (09:24)
[2020-12-11] MEDS: Insulin Isophane NPH, Human 100 Units/ML 10 ML Vial SUBCUT SCH ×2 (09:24→20:33)
[2020-12-11] MEDS: VANCOmycin 1.5 GM/300 ML 1.5 GM in Premix Bag 1 BAG IV SCH (12:34)
--- NOTE | 2020-12-11 12:44 | PCM.CONSN ---
- General Info Date of Service: 12/11/20 Admission Dx/Problem (Free Text): Admission Diagnosis/Problem Admission Diagnosis/Problem Diabetic foot infection Subjective Update: Patient seen at bedside, no acute distress, and states she now has some stinging/tingling/mild pain in left foot. - Review of Systems General: Reports: No Symptoms - Patient Data Vitals - Most Recent: Last Vital Signs Temp 36.2 C 12/11/20 11:41 Pulse 72 12/11/20 11:41 Resp 17 12/11/20 11:41 BP 102/59 L 12/11/20 11:41 Pulse Ox 94 L 12/11/20 11:41 Weight - Most Recent: 104.145 kg I&O - Last 24 Hours: Intake & Output 12/10/20 12/11/20 12/11/20 22:59 06:59 14:59 Intake Total 1660 1000 Output Total 950 2800 Balance 710 -1800 Lab Results Last 24 Hours: Laboratory Results - last 24 hr 12/10/20 12/10/20 12/11/20 Range/Units 17:01 20:08 06:33 WBC (4.0-11.0) K/uL RBC (4.30-5.90) M/uL Hgb (12.0-16.0) g/dL Hct (36.0-46.0) % MCV (80.0-98.0) fL MCH (27.0-32.0) pg MCHC (31.0-37.0) g/dL RDW Std Deviation (28.0-62.0) fl RDW Coeff of Olimpia (11.0-15.0) % Plt Count (150-400) K/uL MPV (7.40-12.00) fL Neut % (Auto) (48.0-80.0) % Lymph % (Auto) (16.0-40.0) % [place] % (Auto) (0.0-15.0) % Eos % (Auto) (0.0-7.0) % Baso % (Auto) (0.0-1.5) % Neut # (Auto) (1.4-5.7) K/uL Lymph # (Auto) (0.6-2.4) K/uL [place] # (Auto) (0.0-0.8) K/uL Eos # (Auto) (0.0-0.7) K/uL Baso # (Auto) (0.0-0.1) K/uL Nucleated RBC % /100WBC Nucleated RBCs # K/uL Sodium (136-145) mmol/L Potassium (3.5-5.1) mmol/L Chloride (98-107) mmol/L Carbon Dioxide (21.0-32.0) mmol/L BUN (7.0-18.0) mg/dL Creatinine (0.6-1.0) mg/dL Est Cr Clr Drug Dosing mL/min Estimated GFR (MDRD) ml/min Glucose (74-106) mg/dL POC Glucose 168 H 208 H 133 H (70-99) mg/dL Calcium (8.5-10.1) mg/dL 12/11/20 12/11/20 12/11/20 Range/Units 07:35 07:35 11:39 WBC 8.48 (4.0-11.0) K/uL RBC 4.01 L (4.30-5.90) M/uL Hgb 12.0 (12.0-16.0) g/dL Hct 35.7 L (36.0-46.0) % MCV 89.0 (80.0-98.0) fL MCH 29.9 (27.0-32.0) pg MCHC 33.6 (31.0-37.0) g/dL RDW Std Deviation 42.8 (28.0-62.0) fl RDW Coeff of Olimpia 13 (11.0-15.0) % Plt Count 238 (150-400) K/uL MPV 10.50 (7.40-12.00) fL Neut % (Auto) 55.5 (48.0-80.0) % Lymph % (Auto) 30.3 (16.0-40.0) % [place] % (Auto) 9.4 (0.0-15.0) % Eos % (Auto) 4.4 (0.0-7.0) % Baso % (Auto) 0.4 (0.0-1.5) % Neut # (Auto) 4.7 (1.4-5.7) K/uL Lymph # (Auto) 2.6 H (0.6-2.4) K/uL [place] # (Auto) 0.8 (0.0-0.8) K/uL Eos # (Auto) 0.4 (0.0-0.7) K/uL Baso # (Auto) 0.0 (0.0-0.1) K/uL Nucleated RBC % 0.0 /100WBC Nucleated RBCs # 0 K/uL Sodium 140 (136-145) mmol/L Potassium 4.3 (3.5-5.1) mmol/L Chloride 104 (98-107) mmol/L Carbon Dioxide 26.9 (21.0-32.0) mmol/L BUN 16 (7.0-18.0) mg/dL Creatinine 0.9 (0.6-1.0) mg/dL Est Cr Clr Drug Dosing 62.80 mL/min Estimated GFR (MDRD) > 60.0 ml/min Glucose 131 H (74-106) mg/dL POC Glucose 153 H (70-99) mg/dL Calcium 8.9 (8.5-10.1) mg/dL Kofi Results Last 24 Hours: Microbiology 12/09/20 18:49 Gram Stain - Final Foot, Left Med Orders - Current: Current Medications Acetaminophen (Acetaminophen 325 Mg Tab) 650 mg PO Q4H PRN PRN Reason: Pain (Mild 1-3)/fever Last Admin: 12/10/20 13:20 Dose: 650 mg Documented by: Albuterol/Ipratropium (Albuterol/Ipratropium 3.0-0.5 Mg/3 Ml Neb Soln) 3 ml NEB Q4HRRT PRN PRN Reason: Shortness Of Breath/wheezing Atorvastatin Calcium (Atorvastatin 20 Mg Tab) 20 mg PO BEDTIME [facility] Last Admin: 12/10/20 20:41 Dose: 20 mg Documented by: Dextrose/Water (50% Dextrose In Water 50 Ml Syringe) 50 ml IVPUSH ASDIRECTED PRN PRN Reason: Hypoglycemia Duloxetine HCl (Duloxetine 30 Mg Cap) 30 mg PO DAILY [facility] Last Admin: 12/11/20 09:24 Dose: 30 mg Documented by: Gabapentin (Gabapentin 300 Mg Cap) 300 mg PO TID [facility] Last Admin: 12/11/20 05:07 Dose: 300 mg Documented by: Glucagon (Glucagon,Human Recombinant 1 Mg Vial) 1 mg IM ASDIRECTED PRN PRN Reason: Hypoglycemia Heparin Sodium (Porcine) (Heparin Sodium 5,000 Units/Ml Vial) 5,000 units SUBCUT Q8H [facility] Last Admin: 12/11/20 12:34 Dose: 5,000 units Documented by: Pantoprazole Sodium 40 mg/ (Sodium Chloride) 10 mls @ 300 mls/hr IV Q24H [facility] Last Admin: 12/10/20 20:43 Dose: 300 mls/hr Documented by: Vancomycin HCl 1.5 gm/ Premix 300 mls @ 200 mls/hr IV Q12H [facility] Last Admin: 12/11/20 12:34 Dose: 200 mls/hr Documented by: Piperacillin Sod/Tazobactam (Sod 4.5 gm/ Sodium Chloride) 100 mls @ 200 mls/hr IV Q6H [facility] Last Admin: 12/11/20 11:43 Dose: 200 mls/hr Documented by: Insulin Aspart (Insulin Aspart 100 Units/Ml 3 Ml Pen) 0 unit SUBCUT TIDAC [facility]; Protocol Last Admin: 12/11/20 11:43 Dose: 3 units Documented by: Insulin Human NPH (Insulin Isophane Nph, Human 100 Units/Ml 10 Ml Vial) 30 unit SUBCUT BID [facility] Last Admin: 12/11/20 09:24 Dose: 30 units Documented by: Lisinopril (Lisinopril 10 Mg Tab) 10 mg PO DAILY [facility] Last Admin: 12/11/20 09:23 Dose: 10 mg Documented by: Morphine Sulfate (Morphine 2 Mg/Ml Syringe) 1 mg IVPUSH Q4H PRN PRN Reason: Pain (severe 7-10) Ondansetron HCl (Ondansetron 4 Mg/2 Ml Sdv) 4 mg IVPUSH Q4H PRN PRN Reason: Nausea/Vomiting Vancomycin HCl (Pharmacy To Dose - Vancomycin) 1 dose .XX ASDIRECTED [facility] Discontinued Medications Acetaminophen (Acetaminophen 325 Mg Tab) 650 mg PO Q4H PRN PRN Reason: Pain (Mild 1-3)/fever Bupivacaine HCl (Bupivacaine 0.5% 30 Ml Sdv) Confirm Administered Dose 30 ml .ROUTE .STK-MED ONE Stop: 12/09/20 17:35 Cefazolin Sodium (Cefazolin 1 Gm Vial) Confirm Administered Dose 1 gm .ROUTE .STK-MED ONE Stop: 12/09/20 17:34 Dextrose/Water (50% Dextrose In Water 50 Ml Syringe) 50 ml IVPUSH ASDIRECTED PRN PRN Reason: Hypoglycemia Fentanyl (Fentanyl 100 Mcg/2 Ml Sdv) Confirm Administered Dose 100 mcg .ROUTE .STK-MED ONE Stop: 12/09/20 17:41 Glucagon (Glucagon,Human Recombinant 1 Mg Vial) 1 mg IM ASDIRECTED PRN PRN Reason: Hypoglycemia Glycopyrrolate (Glycopyrrolate 0.2 Mg/Ml Sdv) Confirm Administered Dose 0.2 mg .ROUTE .STK-MED ONE Stop: 12/09/20 17:44 Lactated Ringer's (Ringers, Lactated) 1,000 mls @ 999 mls/hr IV BOLUS ONE Stop: 12/08/20 22:11 Last Admin: 12/08/20 22:23 Dose: 999 mls/hr Documented by: Piperacillin Sod/Tazobactam (Sod 3.375 gm/ Sodium Chloride) 50 mls @ 100 mls/hr IV Q8H [facility] Last Admin: 12/09/20 05:11 Dose: 100 mls/hr Documented by: Vancomycin HCl 1.5 gm/ Premix 300 mls @ 200 mls/hr IV ONETIME ONE Stop: 12/08/20 23:59 Last Admin: 12/09/20 00:27 Dose: 200 mls/hr Documented by: Magnesium Sulfate 2 gm/ Premix 50 mls @ 12.5 mls/hr IV ONETIME ONE Stop: 12/10/20 13:09 Last Admin: 12/10/20 09:49 Dose: 12.5 mls/hr Documented by: Ketorolac Tromethamine (Ketorolac 30 Mg/Ml Sdv) Confirm Administered Dose 30 mg .ROUTE .STK-MED ONE Stop: 12/09/20 17:44 Lidocaine (Lidocaine 2% 5 Ml Sdv) Confirm Administered Dose 5 ml .ROUTE .STK-MED ONE Stop: 12/09/20 17:44 Lidocaine HCl (Lidocaine 1% 20 Ml Mdv) Confirm Administered Dose 20 ml .ROUTE .STK-MED ONE Stop: 12/09/20 17:35 Midazolam HCl (Midazolam 1 Mg/Ml 2 Ml Sdv) Confirm Administered Dose 2 mg .ROUTE .STK-MED ONE Stop: 12/09/20 17:41 Ondansetron HCl (Ondansetron 4 Mg/2 Ml Sdv) Confirm Administered Dose 4 mg .ROUTE .STK-MED ONE Stop: 12/09/20 17:44 Propofol (Propofol 200 Mg/20 Ml Sdv) Confirm Administered Dose 200 mg .ROUTE .STK-MED ONE Stop: 12/09/20 17:41 Propofol (Propofol 200 Mg/20 Ml Sdv) Confirm Administered Dose 200 mg .ROUTE .STK-MED ONE Stop: 12/09/20 18:09 Propofol (Propofol 200 Mg/20 Ml Sdv) Confirm Administered Dose 200 mg .ROUTE .S TK-MED ONE Stop: 12/09/20 18:20 - Exam Peripheral Pulses: 1+: Posterior Tibial (L), Dorsalis Pedis (L) Skin: Warm Wound/Incisions: Erythema Improving Physical Findings Comments:: Left foot surgery site. Moderate erythema reduced but persisting about incision site. 2 sutures are no longer intact in midsection of incision line. Mild maceration present in this area as well. Minimal active serous drainage, no purulence, no malodor. Sepsis Event Note - Evaluation Sepsis Screening Result: No Definite Risk - Focused Exam Vital Signs: Vital Signs Temp Pulse Resp BP BP Pulse Ox 12/11/20 11:41 36.2 C 72 17 102/59 L 94 L 12/11/20 09:23 108/59 L 12/11/20 07:39 36.5 C 80 17 108/59 L 93 L 12/11/20 04:11 36.8 C 87 20 123/57 L 94 L Consult PN Assessment/Plan POD#: 2 Procedures: Procedures ASSAY OF CK (CPK) (08/24/20) ASSAY OF LACTIC ACID (08/24/20) ASSAY OF MAGNESIUM (08/16/20) ASSAY OF PHOSPHORUS (08/16/20) ASSAY OF VANCOMYCIN (08/24/20) BLOOD CULTURE FOR BACTERIA (08/24/20) C-REACTIVE PROTEIN (08/24/20) COMPLETE CBC W/AUTO DIFF WBC (08/24/20) COMPREHEN METABOLIC PANEL (08/24/20) CT LOWER EXTREMITY W/O DYE (08/24/20) EMERGENCY DEPT VISIT (08/24/20) EXTREMITY STUDY (08/16/20) GLUCOSE BLOOD TEST (08/24/20) GLYCOSYLATED HEMOGLOBIN TEST (08/24/20) METABOLIC PANEL TOTAL CA (08/24/20) OFFICE O/P EST MINIMAL PROB (11/27/20) PT EVAL LOW COMPLEX 20 MIN (08/24/20) RBC SED RATE AUTOMATED (08/24/20) ROUTINE VENIPUNCTURE (08/24/20) SARS-COV-2 COVID-19 AMP PRB (08/24/20) THER/PROPH/DIAG INJ IV PUSH (11/27/20) THER/PROPH/DIAG INJ SC/IM (08/24/20) THER/PROPH/DIAG IV INF ADDON (08/24/20) THER/PROPH/DIAG IV INF INIT (11/27/20) TX/PRO/DX INJ NEW DRUG ADDON (11/27/20) TX/PRO/DX INJ SAME DRUG INSTRUCTOR PHYSICAL EDUCATION (08/24/20) TX/PROPH/DG ADDL SEQ IV INF (08/24/20) URINALYSIS AUTO W/SCOPE (08/24/20) X-RAY EXAM CHEST 1 VIEW (08/24/20) X-RAY EXAM OF FOOT (08/23/20) status post 2 days I&D and excision of medial sesamoid left foot (1) Diabetic foot ulcer SNOMED Code(s): 357029021 Code(s): E11.621 - TYPE 2 DIABETES MELLITUS WITH FOOT ULCER; L97.509 - NON- PRESSURE CHRONIC ULCER OTH PRT UNSP FOOT W UNSP SEVERITY Current Visit: No Qualifiers: Diabetes mellitus type: type 2 Laterality: left Non-pressure ulcer stage: with necrosis of muscle Problem List Initiated/Reviewed/Updated: Yes Plan: 1. Patient seen and examined. 2. Dressing change performed. Packing removed, saline flush performed, right foot surgical site repacked, 2 loose sutures removed, macerated skin treated with betadine, and new dressing applied. 3. Cultures pending from OR but gram stain was negative. 4. Discussed with Dr. Arteaga and agree to await result of cultures. 5. Continue IV antibiotics. 6. Will follow.
--- NOTE | 2020-12-11 13:32 | PCM.PN ---
- General Info Date of Service: 12/11/20 Admission Dx/Problem (Free Text): Admission Diagnosis/Problem Admission Diagnosis/Problem Diabetic foot infection Subjective Update: Patient seen at bedside, no acute distress, and states she now has some stinging/tingling/mild pain in left foot. Functional Status: Reports: Tolerating Diet, Ambulating, Urinating - Review of Systems General: Denies: Fever, Weakness, Fatigue Pulmonary: Denies: Shortness of Breath, Pleuritic Chest Pain, Cough Gastrointestinal: Denies: Abdominal Pain, Constipation, Decreased Appetite Genitourinary: Denies: Dysuria, Frequency, Burning Musculoskeletal: Denies: Neck Pain, Shoulder Pain, Arm Pain Skin: Denies: Cyanosis, Jaundice, Mottled - Patient Data Vitals - Most Recent: Last Vital Signs Temp 36.2 C 12/11/20 11:41 Pulse 72 12/11/20 11:41 Resp 17 12/11/20 11:41 BP 102/59 L 12/11/20 11:41 Pulse Ox 94 L 12/11/20 11:41 Weight - Most Recent: 104.145 kg I&O - Last 24 Hours: Intake & Output 12/10/20 12/11/20 12/11/20 22:59 06:59 14:59 Intake Total 1660 1000 Output Total 950 2800 Balance 710 -1800 Lab Results Last 24 Hours: Laboratory Results - last 24 hr 12/10/20 12/10/20 12/11/20 Range/Units 17:01 20:08 06:33 WBC (4.0-11.0) K/uL RBC (4.30-5.90) M/uL Hgb (12.0-16.0) g/dL Hct (36.0-46.0) % MCV (80.0-98.0) fL MCH (27.0-32.0) pg MCHC (31.0-37.0) g/dL RDW Std Deviation (28.0-62.0) fl RDW Coeff of Olimpia (11.0-15.0) % Plt Count (150-400) K/uL MPV (7.40-12.00) fL Neut % (Auto) (48.0-80.0) % Lymph % (Auto) (16.0-40.0) % [place] % (Auto) (0.0-15.0) % Eos % (Auto) (0.0-7.0) % Baso % (Auto) (0.0-1.5) % Neut # (Auto) (1.4-5.7) K/uL Lymph # (Auto) (0.6-2.4) K/uL [place] # (Auto) (0.0-0.8) K/uL Eos # (Auto) (0.0-0.7) K/uL Baso # (Auto) (0.0-0.1) K/uL Nucleated RBC % /100WBC Nucleated RBCs # K/uL Sodium (136-145) mmol/L Potassium (3.5-5.1) mmol/L Chloride (98-107) mmol/L Carbon Dioxide (21.0-32.0) mmol/L BUN (7.0-18.0) mg/dL Creatinine (0.6-1.0) mg/dL Est Cr Clr Drug Dosing mL/min Estimated GFR (MDRD) ml/min Glucose (74-106) mg/dL POC Glucose 168 H 208 H 133 H (70-99) mg/dL Calcium (8.5-10.1) mg/dL 12/11/20 12/11/20 12/11/20 Range/Units 07:35 07:35 11:39 WBC 8.48 (4.0-11.0) K/uL RBC 4.01 L (4.30-5.90) M/uL Hgb 12.0 (12.0-16.0) g/dL Hct 35.7 L (36.0-46.0) % MCV 89.0 (80.0-98.0) fL MCH 29.9 (27.0-32.0) pg MCHC 33.6 (31.0-37.0) g/dL RDW Std Deviation 42.8 (28.0-62.0) fl RDW Coeff of Olimpia 13 (11.0-15.0) % Plt Count 238 (150-400) K/uL MPV 10.50 (7.40-12.00) fL Neut % (Auto) 55.5 (48.0-80.0) % Lymph % (Auto) 30.3 (16.0-40.0) % [place] % (Auto) 9.4 (0.0-15.0) % Eos % (Auto) 4.4 (0.0-7.0) % Baso % (Auto) 0.4 (0.0-1.5) % Neut # (Auto) 4.7 (1.4-5.7) K/uL Lymph # (Auto) 2.6 H (0.6-2.4) K/uL [place] # (Auto) 0.8 (0.0-0.8) K/uL Eos # (Auto) 0.4 (0.0-0.7) K/uL Baso # (Auto) 0.0 (0.0-0.1) K/uL Nucleated RBC % 0.0 /100WBC Nucleated RBCs # 0 K/uL Sodium 140 (136-145) mmol/L Potassium 4.3 (3.5-5.1) mmol/L Chloride 104 (98-107) mmol/L Carbon Dioxide 26.9 (21.0-32.0) mmol/L BUN 16 (7.0-18.0) mg/dL Creatinine 0.9 (0.6-1.0) mg/dL Est Cr Clr Drug Dosing 62.80 mL/min Estimated GFR (MDRD) > 60.0 ml/min Glucose 131 H (74-106) mg/dL POC Glucose 153 H (70-99) mg/dL Calcium 8.9 (8.5-10.1) mg/dL Kofi Results Last 24 Hours: Microbiology 12/09/20 18:49 Gram Stain - Final Foot, Left Med Orders - Current: Current Medications Acetaminophen (Acetaminophen 325 Mg Tab) 650 mg PO Q4H PRN PRN Reason: Pain (Mild 1-3)/fever Last Admin: 12/10/20 13:20 Dose: 650 mg Documented by: Albuterol/Ipratropium (Albuterol/Ipratropium 3.0-0.5 Mg/3 Ml Neb Soln) 3 ml NEB Q4HRRT PRN PRN Reason: Shortness Of Breath/wheezing Atorvastatin Calcium (Atorvastatin 20 Mg Tab) 20 mg PO BEDTIME [facility]АРИНА Last Admin: 12/10/20 20:41 Dose: 20 mg Documented by: Dextrose/Water (50% Dextrose In Water 50 Ml Syringe) 50 ml IVPUSH ASDIRECTED PRN PRN Reason: Hypoglycemia Duloxetine HCl (Duloxetine 30 Mg Cap) 30 mg PO DAILY [facility] Last Admin: 12/11/20 09:24 Dose: 30 mg Documented by: Gabapentin (Gabapentin 300 Mg Cap) 300 mg PO TID [facility] Last Admin: 12/11/20 05:07 Dose: 300 mg Documented by: Glucagon (Glucagon,Human Recombinant 1 Mg Vial) 1 mg IM ASDIRECTED PRN PRN Reason: Hypoglycemia Heparin Sodium (Porcine) (Heparin Sodium 5,000 Units/Ml Vial) 5,000 units SUBCUT Q8H [facility] Last Admin: 12/11/20 12:34 Dose: 5,000 units Documented by: Pantoprazole Sodium 40 mg/ (Sodium Chloride) 10 mls @ 300 mls/hr IV Q24H [facility] Last Admin: 12/10/20 20:43 Dose: 300 mls/hr Documented by: Vancomycin HCl 1.5 gm/ Premix 300 mls @ 200 mls/hr IV Q12H [facility] Last Admin: 12/11/20 12:34 Dose: 200 mls/hr Documented by: Piperacillin Sod/Tazobactam (Sod 4.5 gm/ Sodium Chloride) 100 mls @ 200 mls/hr IV Q6H [facility] Last Admin: 12/11/20 11:43 Dose: 200 mls/hr Documented by: Insulin Aspart (Insulin Aspart 100 Units/Ml 3 Ml Pen) 0 unit SUBCUT TIDAC [facility]; Protocol Last Admin: 12/11/20 11:43 Dose: 3 units Documented by: Insulin Human NPH (Insulin Isophane Nph, Human 100 Units/Ml 10 Ml Vial) 30 unit SUBCUT BID [facility] Last Admin: 12/11/20 09:24 Dose: 30 units Documented by: Lisinopril (Lisinopril 10 Mg Tab) 10 mg PO DAILY [facility] Last Admin: 12/11/20 09:23 Dose: 10 mg Documented by: Morphine Sulfate (Morphine 2 Mg/Ml Syringe) 1 mg IVPUSH Q4H PRN PRN Reason: Pain (severe 7-10) Ondansetron HCl (Ondansetron 4 Mg/2 Ml Sdv) 4 mg IVPUSH Q4H PRN PRN Reason: Nausea/Vomiting Vancomycin HCl (Pharmacy To Dose - Vancomycin) 1 dose .XX ASDIRECTED [facility] Discontinued Medications Acetaminophen (Acetaminophen 325 Mg Tab) 650 mg PO Q4H PRN PRN Reason: Pain (Mild 1-3)/fever Bupivacaine HCl (Bupivacaine 0.5% 30 Ml Sdv) Confirm Administered Dose 30 ml .ROUTE .STK-MED ONE Stop: 12/09/20 17:35 Cefazolin Sodium (Cefazolin 1 Gm Vial) Confirm Administered Dose 1 gm .ROUTE .STK-MED ONE Stop: 12/09/20 17:34 Dextrose/Water (50% Dextrose In Water 50 Ml Syringe) 50 ml IVPUSH ASDIRECTED PRN PRN Reason: Hypoglycemia Fentanyl (Fentanyl 100 Mcg/2 Ml Sdv) Confirm Administered Dose 100 mcg .ROUTE .STK-MED ONE Stop: 12/09/20 17:41 Glucagon (Glucagon,Human Recombinant 1 Mg Vial) 1 mg IM ASDIRECTED PRN PRN Reason: Hypoglycemia Glycopyrrolate (Glycopyrrolate 0.2 Mg/Ml Sdv) Confirm Administered Dose 0.2 mg .ROUTE .STK-MED ONE Stop: 12/09/20 17:44 Lactated Ringer's (Ringers, Lactated) 1,000 mls @ 999 mls/hr IV BOLUS ONE Stop: 12/08/20 22:11 Last Admin: 12/08/20 22:23 Dose: 999 mls/hr Documented by: Piperacillin Sod/Tazobactam (Sod 3.375 gm/ Sodium Chloride) 50 mls @ 100 mls/hr IV Q8H [facility] Last Admin: 12/09/20 05:11 Dose: 100 mls/hr Documented by: Vancomycin HCl 1.5 gm/ Premix 300 mls @ 200 mls/hr IV ONETIME ONE Stop: 12/08/20 23:59 Last Admin: 12/09/20 00:27 Dose: 200 mls/hr Documented by: Magnesium Sulfate 2 gm/ Premix 50 mls @ 12.5 mls/hr IV ONETIME ONE Stop: 12/10/20 13:09 Last Admin: 12/10/20 09:49 Dose: 12.5 mls/hr Documented by: Ketorolac Tromethamine (Ketorolac 30 Mg/Ml Sdv) Confirm Administered Dose 30 mg .ROUTE .STK-MED ONE Stop: 12/09/20 17:44 Lidocaine (Lidocaine 2% 5 Ml Sdv) Confirm Administered Dose 5 ml .ROUTE .STK-MED ONE Stop: 12/09/20 17:44 Lidocaine HCl (Lidocaine 1% 20 Ml Mdv) Confirm Administered Dose 20 ml .ROUTE .STK-MED ONE Stop: 12/09/20 17:35 Midazolam HCl (Midazolam 1 Mg/Ml 2 Ml Sdv) Confirm Administered Dose 2 mg .ROUTE .STK-MED ONE Stop: 12/09/20 17:41 Ondansetron HCl (Ondansetron 4 Mg/2 Ml Sdv) Confirm Administered Dose 4 mg .ROUTE .STK-MED ONE Stop: 12/09/20 17:44 Propofol (Propofol 200 Mg/20 Ml Sdv) Confirm Administered Dose 200 mg .ROUTE . STK-MED ONE Stop: 12/09/20 17:41 Propofol (Propofol 200 Mg/20 Ml Sdv) Confirm Administered Dose 200 mg .ROUTE .STK-MED ONE Stop: 12/09/20 18:09 Propofol (Propofol 200 Mg/20 Ml Sdv) Confirm Administered Dose 200 mg .ROUTE .STK-MED ONE Stop: 12/09/20 18:20 - Exam General: Alert, Oriented Lungs: Clear to Auscultation Cardiovascular: Regular Rate, Regular Rhythm GI/Abdominal Exam: Normal Bowel Sounds, Soft, Non-Tender Extremities: Other (left foot wrapped with dressing, clean and dry ) - Patient Data Lab Results Last 24 hrs: Laboratory Results - last 24 hr 12/10/20 12/10/20 12/11/20 Range/Units 17:01 20:08 06:33 WBC (4.0-11.0) K/uL RBC (4.30-5.90) M/uL Hgb (12.0-16.0) g/dL Hct (36.0-46.0) % MCV (80.0-98.0) fL MCH (27.0-32.0) pg MCHC (31.0-37.0) g/dL RDW Std Deviation (28.0-62.0) fl RDW Coeff of Olimpia (11.0-15.0) % Plt Count (150-400) K/uL MPV (7.40-12.00) fL Neut % (Auto) (48.0-80.0) % Lymph % (Auto) (16.0-40.0) % [place] % (Auto) (0.0-15.0) % Eos % (Auto) (0.0-7.0) % Baso % (Auto) (0.0-1.5) % Neut # (Auto) (1.4-5.7) K/uL Lymph # (Auto) (0.6-2.4) K/uL [place] # (Auto) (0.0-0.8) K/uL Eos # (Auto) (0.0-0.7) K/uL Baso # (Auto) (0.0-0.1) K/uL Nucleated RBC % /100WBC Nucleated RBCs # K/uL Sodium (136-145) mmol/L Potassium (3.5-5.1) mmol/L Chloride (98-107) mmol/L Carbon Dioxide (21.0-32.0) mmol/L BUN (7.0-18.0) mg/dL Creatinine (0.6-1.0) mg/dL Est Cr Clr Drug Dosing mL/min Estimated GFR (MDRD) ml/min Glucose (74-106) mg/dL POC Glucose 168 H 208 H 133 H (70-99) mg/dL Calcium (8.5-10.1) mg/dL 12/11/20 12/11/20 12/11/20 Range/Units 07:35 07:35 11:39 WBC 8.48 (4.0-11.0) K/uL RBC 4.01 L (4.30-5.90) M/uL Hgb 12.0 (12.0-16.0) g/dL Hct 35.7 L (36.0-46.0) % MCV 89.0 (80.0-98.0) fL MCH 29.9 (27.0-32.0) pg MCHC 33.6 (31.0-37.0) g/dL RDW Std Deviation 42.8 (28.0-62.0) fl RDW Coeff of Olimpia 13 (11.0-15.0) % Plt Count 238 (150-400) K/uL MPV 10.50 (7.40-12.00) fL Neut % (Auto) 55.5 (48.0-80.0) % Lymph % (Auto) 30.3 (16.0-40.0) % [place] % (Auto) 9.4 (0.0-15.0) % Eos % (Auto) 4.4 (0.0-7.0) % Baso % (Auto) 0.4 (0.0-1.5) % Neut # (Auto) 4.7 (1.4-5.7) K/uL Lymph # (Auto) 2.6 H (0.6-2.4) K/uL [place] # (Auto) 0.8 (0.0-0.8) K/uL Eos # (Auto) 0.4 (0.0-0.7) K/uL Baso # (Auto) 0.0 (0.0-0.1) K/uL Nucleated RBC % 0.0 /100WBC Nucleated RBCs # 0 K/uL Sodium 140 (136-145) mmol/L Potassium 4.3 (3.5-5.1) mmol/L Chloride 104 (98-107) mmol/L Carbon Dioxide 26.9 (21.0-32.0) mmol/L BUN 16 (7.0-18.0) mg/dL Creatinine 0.9 (0.6-1.0) mg/dL Est Cr Clr Drug Dosing 62.80 mL/min Estimated GFR (MDRD) > 60.0 ml/min Glucose 131 H (74-106) mg/dL POC Glucose 153 H (70-99) mg/dL Calcium 8.9 (8.5-10.1) mg/dL Result Diagrams: 12/11/20 07:35 12/11/20 07:35 Kofi Results Last 24 hrs: Microbiology 12/09/20 18:49 Gram Stain - Final Foot, Left Sepsis Event Note - Evaluation Sepsis Screening Result: No Definite Risk - Focused Exam Vital Signs: Vital Signs Temp Pulse Resp BP BP Pulse Ox 12/11/20 11:41 36.2 C 72 17 102/59 L 94 L 12/11/20 09:23 108/59 L 12/11/20 07:39 36.5 C 80 17 108/59 L 93 L 12/11/20 04:11 36.8 C 87 20 123/57 L 94 L - Problem List & Annotations (1) Cellulitis SNOMED Code(s): 379251592 Code(s): L03.90 - CELLULITIS, UNSPECIFIED Status: Acute Current Visit: No Qualifiers: Site of cellulitis: extremity Site of cellulitis of extremity: lower extremity Laterality: right Qualified Code(s): L03.115 - Cellulitis of right lower limb (2) Diabetes SNOMED Code(s): 28523428 Code(s): E11.9 - TYPE 2 DIABETES MELLITUS WITHOUT COMPLICATIONS Status: Acute Current Visit: No (3) Diabetic foot ulcer SNOMED Code(s): 793922544 Code(s): E11.621 - TYPE 2 DIABETES MELLITUS WITH FOOT ULCER; L97.509 - NON- PRESSURE CHRONIC ULCER OTH PRT UNSP FOOT W UNSP SEVERITY Status: Acute Current Visit: No Qualifiers: Diabetes mellitus type: type 2 Laterality: left Non-pressure ulcer stage: with necrosis of muscle (4) Diabetic ulcer of foot associated with diabetes mellitus due to underlying condition, limited to breakdown of skin SNOMED Code(s): 997304434, 281640237 Code(s): E08.621 - DIABETES MELLITUS DUE TO UNDERLYING CONDITION W FOOT ULCER; L97.501 - NON-PRS CHR ULCER OTH PRT UNSP FOOT LIMITED TO BRKDWN SKIN Status: Acute Current Visit: No Qualifiers: Diabetic foot ulcer location: unspecified part of foot Laterality: right Qualified Code(s): E08.621 - Diabetes mellitus due to underlying condition with foot ulcer; L97.511 - Non-pressure chronic ulcer of other part of right foot limited to breakdown of skin (5) Hyperlipemia SNOMED Code(s): 96426408 Code(s): E78.5 - HYPERLIPIDEMIA, UNSPECIFIED Status: Chronic Current Visit: No (6) Hypertension SNOMED Code(s): 13065058 Code(s): I10 - ESSENTIAL (PRIMARY) HYPERTENSION Status: Chronic Current Visit: No (7) Neuropathy SNOMED Code(s): 967550284 Code(s): G62.9 - POLYNEUROPATHY, UNSPECIFIED Status: Chronic Current Visit: No (8) Obesity SNOMED Code(s): 642737437, 372836825 Code(s): E66.9 - OBESITY, UNSPECIFIED Status: Chronic Current Visit: No - Problem List Review Problem List Initiated/Reviewed/Updated: Yes - My Orders Last 24 Hours: My Active Orders 12/11/20 23:45 VANCOMYCIN TROUGH [CHEM] Routine - Plan Plan:: Patient is a 55-year-old female admitted for infected diabetic foot ulcer of her left foot Status post I&D, medial sesamoid bone has been excised, culture has been sent for sensitivity, Gram satin negative, culture is pending cont broad-spectrum antibiotics, awaiting cultures from recent I/D, previous culture growing klebsiella oxytoca susceptible to oral antibiotics For pain control start IV morphine as needed Continue gabapentin for neuropathy Sliding scale insulin for diabetes, DuoNebs as needed for shortness of breath Resume home meds as appropriate Appreciate recommendations of podiatry Dispo: pending cultures and home health arrangement for dressing change
[2020-12-11] MEDS: Acetaminophen 325 MG Tab PO PRN ×2 (16:10→21:30)
[2020-12-11] MEDS: atorvaSTATin 10 MG Tab PO SCH (20:30)
[2020-12-11] MEDS: Pantoprazole 40 MG in Sodium Chloride 0.9% 10 ML IV SCH (20:31)
[2020-12-12] MEDS: Piperacillin/Tazobactam 4.5 GM in Sodium Chloride 0.9% 100 ML IV SCH ×3 (04:59→17:25)
[2020-12-12] MEDS: Heparin Sodium 5,000 Units/ML Vial SUBCUT SCH ×2 (05:05→13:48)
[2020-12-12] MEDS: Gabapentin 300 MG Cap PO SCH ×2 (05:05→13:44)
[2020-12-12] MEDS: Lisinopril 10 MG Tab PO SCH (09:55)
[2020-12-12] MEDS: DULoxetine 30 MG Cap PO SCH (10:20)
[2020-12-12] MEDS: Insulin Isophane NPH, Human 100 Units/ML 10 ML Vial SUBCUT SCH ×2 (10:22→21:00)
[2020-12-12] MEDS: Acetaminophen 325 MG Tab PO PRN (10:39)
[2020-12-12] MEDS: Insulin Aspart 100 Units/ML 3 ML Pen SUBCUT SCH ×2 (11:30→17:35)
--- NOTE | 2020-12-12 15:22 | PCM.CONSN ---
- General Info Date of Service: 12/12/20 Admission Dx/Problem (Free Text): Admission Diagnosis/Problem Admission Diagnosis/Problem Diabetic foot infection Subjective Update: Patient seen at bedside, no acute distress, but is more aware of stinging and tingling sensation in left foot. Functional Status: Reports: Pain Controlled - Patient Data Vitals - Most Recent: Last Vital Signs Temp 36.4 C 12/12/20 11:00 Pulse 69 12/12/20 11:00 Resp 22 H 12/12/20 11:00 BP 113/68 12/12/20 11:00 Pulse Ox 94 L 12/12/20 11:00 Weight - Most Recent: 104.145 kg I&O - Last 24 Hours: Intake & Output 12/12/20 12/12/20 12/12/20 06:59 14:59 22:59 Intake Total 1050 Output Total 2200 Balance -1150 Lab Results Last 24 Hours: Laboratory Results - last 24 hr 12/11/20 12/11/20 12/11/20 Range/Units 17:26 20:28 23:45 WBC (4.0-11.0) K/uL RBC (4.30-5.90) M/uL Hgb (12.0-16.0) g/dL Hct (36.0-46.0) % MCV (80.0-98.0) fL MCH (27.0-32.0) pg MCHC (31.0-37.0) g/dL RDW Std Deviation (28.0-62.0) fl RDW Coeff of Olimpia (11.0-15.0) % Plt Count (150-400) K/uL MPV (7.40-12.00) fL Neut % (Auto) (48.0-80.0) % Lymph % (Auto) (16.0-40.0) % [place] % (Auto) (0.0-15.0) % Eos % (Auto) (0.0-7.0) % Baso % (Auto) (0.0-1.5) % Neut # (Auto) (1.4-5.7) K/uL Lymph # (Auto) (0.6-2.4) K/uL [place] # (Auto) (0.0-0.8) K/uL Eos # (Auto) (0.0-0.7) K/uL Baso # (Auto) (0.0-0.1) K/uL Nucleated RBC % /100WBC Nucleated RBCs # K/uL POC Glucose 234 H 219 H (70-99) mg/dL Vancomycin Trough 16.9 H (5.0-10.0) ug/mL 12/12/20 12/12/20 12/12/20 Range/Units 05:25 06:45 10:49 WBC 7.17 (4.0-11.0) K/uL RBC 3.98 L (4.30-5.90) M/uL Hgb 12.1 (12.0-16.0) g/dL Hct 35.2 L (36.0-46.0) % MCV 88.4 (80.0-98.0) fL MCH 30.4 (27.0-32.0) pg MCHC 34.4 (31.0-37.0) g/dL RDW Std Deviation 41.7 (28.0-62.0) fl RDW Coeff of [place]limp[place] 13 (11.0-15.0) % Plt Count 254 (150-400) K/uL MPV 10.70 (7.40-12.00) fL Neut % (Auto) 45.2 L (48.0-80.0) % Lymph % (Auto) 37.8 (16.0-40.0) % [place] % (Auto) 10.5 (0.0-15.0) % Eos % (Auto) 5.9 (0.0-7.0) % Baso % (Auto) 0.6 (0.0-1.5) % Neut # (Auto) 3.3 (1.4-5.7) K/uL Lymph # (Auto) 2.7 H (0.6-2.4) K/uL [place] # (Auto) 0.8 (0.0-0.8) K/uL Eos # (Auto) 0.4 (0.0-0.7) K/uL Baso # (Auto) 0.0 (0.0-0.1) K/uL Nucleated RBC % 0.0 /100WBC Nucleated RBCs # 0 K/uL POC Glucose 142 H 221 H (70-99) mg/dL Vancomycin Trough (5.0-10.0) ug/mL Kofi Results Last 24 Hours: Microbiology 12/09/20 18:49 Aerobic Culture - Preliminary Foot, Left Gram Stain - Final Anaerobic Culture - Preliminary Med Orders - Current: Current Medications Acetaminophen (Acetaminophen 325 Mg Tab) 650 mg PO Q4H PRN PRN Reason: Pain (Mild 1-3)/fever Last Admin: 12/12/20 10:39 Dose: 650 mg Documented by: Albuterol/Ipratropium (Albuterol/Ipratropium 3.0-0.5 Mg/3 Ml Neb Soln) 3 ml NEB Q4HRRT PRN PRN Reason: Shortness Of Breath/wheezing Atorvastatin Calcium (Atorvastatin 10 Mg Tab) 10 mg PO BEDTIME [facility] Last Admin: 12/11/20 20:30 Dose: 10 mg Documented by: Dextrose/Water (50% Dextrose In Water 50 Ml Syringe) 50 ml IVPUSH ASDIRECTED PRN PRN Reason: Hypoglycemia Duloxetine HCl (Duloxetine 30 Mg Cap) 30 mg PO DAILY [facility] Last Admin: 12/12/20 10:20 Dose: 30 mg Documented by: Gabapentin (Gabapentin 300 Mg Cap) 300 mg PO TID [facility] Last Admin: 12/12/20 13:44 Dose: 300 mg Documented by: Glucagon (Glucagon,Human Recombinant 1 Mg Vial) 1 mg IM ASDIRECTED PRN PRN Reason: Hypoglycemia Heparin Sodium (Porcine) (Heparin Sodium 5,000 Units/Ml Vial) 5,000 units SUBCUT Q8H [facility] Last Admin: 12/12/20 13:48 Dose: 5,000 units Documented by: Pantoprazole Sodium 40 mg/ (Sodium Chloride) 10 mls @ 300 mls/hr IV Q24H [facility] Last Admin: 12/11/20 20:31 Dose: 300 mls/hr Documented by: Piperacillin Sod/Tazobactam (Sod 4.5 gm/ Sodium Chloride) 100 mls @ 200 mls/hr IV Q6H [facility] Last Admin: 12/12/20 11:07 Dose: 200 mls/hr Documented by: Insulin Aspart (Insulin Aspart 100 Units/Ml 3 Ml Pen) 0 unit SUBCUT TIDAC [facility]; Protocol Last Admin: 12/11/20 17:27 Dose: 6 units Documented by: Insulin Human NPH (Insulin Isophane Nph, Human 100 Units/Ml 10 Ml Vial) 30 unit SUBCUT BID [facility] Last Admin: 12/12/20 10:22 Dose: 30 units Documented by: Lisinopril (Lisinopril 10 Mg Tab) 10 mg PO DAILY [facility] Last Admin: 12/12/20 09:55 Dose: 10 mg Documented by: Morphine Sulfate (Morphine 2 Mg/Ml Syringe) 1 mg IVPUSH Q4H PRN PRN Reason: Pain (severe 7-10) Ondansetron HCl (Ondansetron 4 Mg/2 Ml Sdv) 4 mg IVPUSH Q4H PRN PRN Reason: Nausea/Vomiting Vancomycin HCl (Pharmacy To Dose - Vancomycin) 1 dose .XX ASDIRECTED [facility] Discontinued Medications Acetaminophen (Acetaminophen 325 Mg Tab) 650 mg PO Q4H PRN PRN Reason: Pain (Mild 1-3)/fever Atorvastatin Calcium (Atorvastatin 20 Mg Tab) 20 mg PO BEDTIME [facility] Last Admin: 12/10/20 20:41 Dose: 20 mg Documented by: Bupivacaine HCl (Bupivacaine 0.5% 30 Ml Sdv) Confirm Administered Dose 30 ml .ROUTE .STK-MED ONE Stop: 12/09/20 17:35 Cefazolin Sodium (Cefazolin 1 Gm Vial) Confirm Administered Dose 1 gm .ROUTE .STK-MED ONE Stop: 12/09/20 17:34 Dextrose/Water (50% Dextrose In Water 50 Ml Syringe) 50 ml IVPUSH ASDIRECTED PRN PRN Reason: Hypoglycemia Fentanyl (Fentanyl 100 Mcg/2 Ml Sdv) Confirm Administered Dose 100 mcg .ROUTE .STK-MED ONE Stop: 12/09/20 17:41 Glucagon (Glucagon,Human Recombinant 1 Mg Vial) 1 mg IM ASDIRECTED PRN PRN Reason: Hypoglycemia Glycopyrrolate (Glycopyrrolate 0.2 Mg/Ml Sdv) Confirm Administered Dose 0.2 mg .ROUTE .STK-MED ONE Stop: 12/09/20 17:44 Lactated Ringer's (Ringers, Lactated) 1,000 mls @ 999 mls/hr IV BOLUS ONE Stop: 12/08/20 22:11 Last Admin: 12/08/20 22:23 Dose: 999 mls/hr Documented by: Piperacillin Sod/Tazobactam (Sod 3.375 gm/ Sodium Chloride) 50 mls @ 100 mls/hr IV Q8H [facility] Last Admin: 12/09/20 05:11 Dose: 100 mls/hr Documented by: Vancomycin HCl 1.5 gm/ Premix 300 mls @ 200 mls/hr IV ONETIME ONE Stop: 12/08/20 23:59 Last Admin: 12/09/20 00:27 Dose: 200 mls/hr Documented by: Vancomycin HCl 1.5 gm/ Premix 300 mls @ 200 mls/hr IV Q12H [facility] Last Admin: 12/11/20 12:34 Dose: 200 mls/hr Documented by: Magnesium Sulfate 2 gm/ Premix 50 mls @ 12.5 mls/hr IV ONETIME ONE Stop: 12/10/20 13:09 Last Admin: 12/10/20 09:49 Dose: 12.5 mls/hr Documented by: Vancomycin HCl 1.25 gm/ Sodium (Chloride) 250 mls @ 166.667 mls/hr IV Q12H [facility] Last Infusion: 12/12/20 02:05 Dose: Infused Documented by: Ketorolac Tromethamine (Ketorolac 30 Mg/Ml Sdv) Confirm Administered Dose 30 mg .ROUTE .STK-MED ONE Stop: 12/09/20 17:44 Lidocaine (Lidocaine 2% 5 Ml Sdv) Confirm Administered Dose 5 ml .ROUTE .STK-MED ONE Stop: 12/09/20 17:44 Lidocaine HCl (Lidocaine 1% 20 Ml Mdv) Confirm Administered Dose 20 ml .ROUTE .STK-MED ONE Stop: 12/09/20 17:35 Midazolam HCl (Midazolam 1 Mg/Ml 2 Ml Sdv) Confirm Administered Dose 2 mg .ROUTE .STK-MED ONE Stop: 12/09/20 17:41 Ondansetron HCl (Ondansetron 4 Mg/2 Ml Sdv) Confirm Administered Dose 4 mg .ROUTE .STK-MED ONE Stop: 12/09/20 17:44 Propofol (Propofol 200 Mg/20 Ml Sdv) Confirm Administered Dose 200 mg .ROUTE .STK-MED ONE Stop: 12/09/20 17:41 Propofol (Propofol 200 Mg/20 Ml Sdv) Confirm Administered Dose 200 mg .ROUTE .STK-MED ONE Stop: 12/09/20 18:09 Propofol (Propofol 200 Mg/20 Ml Sdv) Confirm Administered Dose 200 mg .ROUTE .STK-MED ONE Stop: 12/09/20 18:20 - Exam Peripheral Pulses: 1+: Posterior Tibial (L), Dorsalis Pedis (L) Wound/Incisions: Drainage, Erythema Improving Physical Findings Comments:: left foot: there is further opening in midsection of incision site, no purulence, minimal serous drainage upon exsanguination Sepsis Event Note - Evaluation Sepsis Screening Result: No Definite Risk - Focused Exam Vital Signs: Vital Signs Temp Pulse Resp BP BP BP Pulse Ox 12/12/20 11:00 36.4 C 69 22 H 113/68 94 L 12/12/20 09:55 133/82 12/12/20 07:53 36.7 C 73 22 H 133/82 93 L 12/12/20 04:57 36.1 C 74 16 119/65 93 L Consult PN Assessment/Plan Procedures: Procedures ASSAY OF CK (CPK) (08/24/20) ASSAY OF LACTIC ACID (08/24/20) ASSAY OF MAGNESIUM (08/16/20) ASSAY OF PHOSPHORUS (08/16/20) ASSAY OF VANCOMYCIN (08/24/20) BLOOD CULTURE FOR BACTERIA (08/24/20) C-REACTIVE PROTEIN (08/24/20) COMPLETE CBC W/AUTO DIFF WBC (08/24/20) COMPREHEN METABOLIC PANEL (08/24/20) CT LOWER EXTREMITY W/O DYE (08/24/20) EMERGENCY DEPT VISIT (08/24/20) EXTREMITY STUDY (08/16/20) GLUCOSE BLOOD TEST (08/24/20) GLYCOSYLATED HEMOGLOBIN TEST (08/24/20) METABOLIC PANEL TOTAL CA (08/24/20) OFFICE O/P EST MINIMAL PROB (11/27/20) PT EVAL LOW COMPLEX 20 MIN (08/24/20) RBC SED RATE AUTOMATED (08/24/20) ROUTINE VENIPUNCTURE (08/24/20) SARS-COV-2 COVID-19 AMP PRB (08/24/20) THER/PROPH/DIAG INJ IV PUSH (11/27/20) THER/PROPH/DIAG INJ SC/IM (08/24/20) THER/PROPH/DIAG IV INF ADDON (08/24/20) THER/PROPH/DIAG IV INF INIT (11/27/20) TX/PRO/DX INJ NEW DRUG ADDON (11/27/20) TX/PRO/DX INJ SAME DRUG MANUFACTURING ACCOUNTANT (08/24/20) TX/PROPH/DG ADDL SEQ IV INF (08/24/20) URINALYSIS AUTO W/SCOPE (08/24/20) X-RAY EXAM CHEST 1 VIEW (08/24/20) X-RAY EXAM OF FOOT (08/23/20) (1) Diabetic foot ulcer SNOMED Code(s): 628455771 Code(s): E11.621 - TYPE 2 DIABETES MELLITUS WITH FOOT ULCER; L97.509 - NON- PRESSURE CHRONIC ULCER OTH PRT UNSP FOOT W UNSP SEVERITY Current Visit: No Qualifiers: Diabetes mellitus type: type 2 Laterality: left Non-pressure ulcer stage: with necrosis of muscle Problem List Initiated/Reviewed/Updated: Yes Plan: 1. Patient seen and examined. She is 3 days s/p I&D with sesamoidectomy. 2. Dressing change performed. Packing removed, saline flush performed, right foot surgical site repacked, and new dressing applied. 3. Cultures pending from OR but preliminary results are negative for growth. 4. Discussed with Dr. Arteaga and agree to await result of cultures. 5. Continue IV Zosyn. 6. Patient has a wound vac that has not been returned yet to supplier and I will likely be applying it after discharge. 7. Will follow.
--- NOTE | 2020-12-12 16:30 | PCM.PN ---
- General Info Date of Service: 12/12/20 Admission Dx/Problem (Free Text): Admission Diagnosis/Problem Admission Diagnosis/Problem Diabetic foot infection Subjective Update: Patient seen at bedside, no acute distress,She is 3 days s/p I&D with sesamoidectomy, Dressing change performed by podiatry, Packing removed, saline flush performed at right foot surgical site Functional Status: Reports: Tolerating Diet, Ambulating, Urinating - Review of Systems General: Denies: Fever, Weakness, Fatigue Pulmonary: Denies: Shortness of Breath, Pleuritic Chest Pain Cardiovascular: Denies: Chest Pain, Palpitations, Dyspnea on Exertion Gastrointestinal: Denies: Abdominal Pain, Constipation, Decreased Appetite Genitourinary: Denies: Dysuria, Frequency, Burning Musculoskeletal: Reports: Foot Pain, Joint Pain. Denies: Neck Pain, Shoulder Pain, Arm Pain Skin: Denies: Cyanosis, Jaundice, Mottled Neurological: Denies: Confusion, Dizziness, Headache - Patient Data Vitals - Most Recent: Last Vital Signs Temp 36.4 C 12/12/20 11:00 Pulse 69 12/12/20 11:00 Resp 22 H 12/12/20 11:00 BP 113/68 12/12/20 11:00 Pulse Ox 94 L 12/12/20 11:00 Weight - Most Recent: 104.145 kg I&O - Last 24 Hours: Intake & Output 12/12/20 12/12/20 12/12/20 06:59 14:59 22:59 Intake Total 1050 Output Total 2200 Balance -1150 Lab Results Last 24 Hours: Laboratory Results - last 24 hr 12/11/20 12/11/20 12/11/20 Range/Units 17:26 20:28 23:45 WBC (4.0-11.0) K/uL RBC (4.30-5.90) M/uL Hgb (12.0-16.0) g/dL Hct (36.0-46.0) % MCV (80.0-98.0) fL MCH (27.0-32.0) pg MCHC (31.0-37.0) g/dL RDW Std Deviation (28.0-62.0) fl RDW Coeff of Olimpia (11.0-15.0) % Plt Count (150-400) K/uL MPV (7.40-12.00) fL Neut % (Auto) (48.0-80.0) % Lymph % (Auto) (16.0-40.0) % Morehouse % (Auto) (0.0-15.0) % Eos % (Auto) (0.0-7.0) % Baso % (Auto) (0.0-1.5) % Neut # (Auto) (1.4-5.7) K/uL Lymph # (Auto) (0.6-2.4) K/uL Morehouse # (Auto) (0.0-0.8) K/uL Eos # (Auto) (0.0-0.7) K/uL Baso # (Auto) (0.0-0.1) K/uL Nucleated RBC % /100WBC Nucleated RBCs # K/uL POC Glucose 234 H 219 H (70-99) mg/dL Vancomycin Trough 16.9 H (5.0-10.0) ug/mL 12/12/20 12/12/20 12/12/20 Range/Units 05:25 06:45 10:49 WBC 7.17 (4.0-11.0) K/uL RBC 3.98 L (4.30-5.90) M/uL Hgb 12.1 (12.0-16.0) g/dL Hct 35.2 L (36.0-46.0) % MCV 88.4 (80.0-98.0) fL MCH 30.4 (27.0-32.0) pg MCHC 34.4 (31.0-37.0) g/dL RDW Std Deviation 41.7 (28.0-62.0) fl RDW Coeff of Olimpia 13 (11.0-15.0) % Plt Count 254 (150-400) K/uL MPV 10.70 (7.40-12.00) fL Neut % (Auto) 45.2 L (48.0-80.0) % Lymph % (Auto) 37.8 (16.0-40.0) % Morehouse % (Auto) 10.5 (0.0-15.0) % Eos % (Auto) 5.9 (0.0-7.0) % Baso % (Auto) 0.6 (0.0-1.5) % Neut # (Auto) 3.3 (1.4-5.7) K/uL Lymph # (Auto) 2.7 H (0.6-2.4) K/uL Morehouse # (Auto) 0.8 (0.0-0.8) K/uL Eos # (Auto) 0.4 (0.0-0.7) K/uL Baso # (Auto) 0.0 (0.0-0.1) K/uL Nucleated RBC % 0.0 /100WBC Nucleated RBCs # 0 K/uL POC Glucose 142 H 221 H (70-99) mg/dL Vancomycin Trough (5.0-10.0) ug/mL Kofi Results Last 24 Hours: Microbiology 12/09/20 18:49 Aerobic Culture - Preliminary Foot, Left Gram Stain - Final Anaerobic Culture - Preliminary Med Orders - Current: Current Medications Acetaminophen (Acetaminophen 325 Mg Tab) 650 mg PO Q4H PRN PRN Reason: Pain (Mild 1-3)/fever Last Admin: 12/12/20 10:39 Dose: 650 mg Documented by: Albuterol/Ipratropium (Albuterol/Ipratropium 3.0-0.5 Mg/3 Ml Neb Soln) 3 ml NEB Q4HRRT PRN PRN Reason: Shortness Of Breath/wheezing Atorvastatin Calcium (Atorvastatin 10 Mg Tab) 10 mg PO BEDTIME [facility] Last Admin: 12/11/20 20:30 Dose: 10 mg Documented by: Dextrose/Water (50% Dextrose In Water 50 Ml Syringe) 50 ml IVPUSH ASDIRECTED PRN PRN Reason: Hypoglycemia Duloxetine HCl (Duloxetine 30 Mg Cap) 30 mg PO DAILY [facility] Last Admin: 12/12/20 10:20 Dose: 30 mg Documented by: Gabapentin (Gabapentin 300 Mg Cap) 300 mg PO TID [facility] Last Admin: 12/12/20 13:44 Dose: 300 mg Documented by: Glucagon (Glucagon,Human Recombinant 1 Mg Vial) 1 mg IM ASDIRECTED PRN PRN Reason: Hypoglycemia Heparin Sodium (Porcine) (Heparin Sodium 5,000 Units/Ml Vial) 5,000 units SUBCUT Q8H [facility] Last Admin: 12/12/20 13:48 Dose: 5,000 units Documented by: Pantoprazole Sodium 40 mg/ (Sodium Chloride) 10 mls @ 300 mls/hr IV Q24H [facility] Last Admin: 12/11/20 20:31 Dose: 300 mls/hr Documented by: Piperacillin Sod/Tazobactam (Sod 4.5 gm/ Sodium Chloride) 100 mls @ 200 mls/hr IV Q6H [facility] Last Admin: 12/12/20 11:07 Dose: 200 mls/hr Documented by: Insulin Aspart (Insulin Aspart 100 Units/Ml 3 Ml Pen) 0 unit SUBCUT TIDAC [facility]; Protocol Last Admin: 12/11/20 17:27 Dose: 6 units Documented by: Insulin Human NPH (Insulin Isophane Nph, Human 100 Units/Ml 10 Ml Vial) 30 unit SUBCUT BID [facility] Last Admin: 12/12/20 10:22 Dose: 30 units Documented by: Lisinopril (Lisinopril 10 Mg Tab) 10 mg PO DAILY [facility] Last Admin: 12/12/20 09:55 Dose: 10 mg Documented by: Morphine Sulfate (Morphine 2 Mg/Ml Syringe) 1 mg IVPUSH Q4H PRN PRN Reason: Pain (severe 7-10) Ondansetron HCl (Ondansetron 4 Mg/2 Ml Sdv) 4 mg IVPUSH Q4H PRN PRN Reason: Nausea/Vomiting Vancomycin HCl (Pharmacy To Dose - Vancomycin) 1 dose .XX ASDIRECTED [facility] Discontinued Medications Acetaminophen (Acetaminophen 325 Mg Tab) 650 mg PO Q4H PRN PRN Reason: Pain (Mild 1-3)/fever Atorvastatin Calcium (Atorvastatin 20 Mg Tab) 20 mg PO BEDTIME [facility] Last Admin: 12/10/20 20:41 Dose: 20 mg Documented by: Bupivacaine HCl (Bupivacaine 0.5% 30 Ml Sdv) Confirm Administered Dose 30 ml .ROUTE .STK-MED ONE Stop: 12/09/20 17:35 Cefazolin Sodium (Cefazolin 1 Gm Vial) Confirm Administered Dose 1 gm .ROUTE .STK-MED ONE Stop: 12/09/20 17:34 Dextrose/Water (50% Dextrose In Water 50 Ml Syringe) 50 ml IVPUSH ASDIRECTED PRN PRN Reason: Hypoglycemia Fentanyl (Fentanyl 100 Mcg/2 Ml Sdv) Confirm Administered Dose 100 mcg .ROUTE .STK-MED ONE Stop: 12/09/20 17:41 Glucagon (Glucagon,Human Recombinant 1 Mg Vial) 1 mg IM ASDIRECTED PRN PRN Reason: Hypoglycemia Glycopyrrolate (Glycopyrrolate 0.2 Mg/Ml Sdv) Confirm Administered Dose 0.2 mg .ROUTE .STK-MED ONE Stop: 12/09/20 17:44 Lactated Ringer's (Ringers, Lactated) 1,000 mls @ 999 mls/hr IV BOLUS ONE Stop: 12/08/20 22:11 Last Admin: 12/08/20 22:23 Dose: 999 mls/hr Documented by: Piperacillin Sod/Tazobactam (Sod 3.375 gm/ Sodium Chloride) 50 mls @ 100 mls/hr IV Q8H [facility] Last Admin: 12/09/20 05:11 Dose: 100 mls/hr Documented by: Vancomycin HCl 1.5 gm/ Premix 300 mls @ 200 mls/hr IV ONETIME ONE Stop: 12/08/20 23:59 Last Admin: 12/09/20 00:27 Dose: 200 mls/hr Documented by: Vancomycin HCl 1.5 gm/ Premix 300 mls @ 200 mls/hr IV Q12H [facility] Last Admin: 12/11/20 12:34 Dose: 200 mls/hr Documented by: Magnesium Sulfate 2 gm/ Premix 50 mls @ 12.5 mls/hr IV ONETIME ONE Stop: 12/10/20 13:09 Last Admin: 12/10/20 09:49 Dose: 12.5 mls/hr Documented by: Vancomycin HCl 1.25 gm/ Sodium (Chloride) 250 mls @ 166.667 mls/hr IV Q12H [facility] Last Infusion: 12/12/20 02:05 Dose: Infused Documented by: Ketorolac Tromethamine (Ketorolac 30 Mg/Ml Sdv) Confirm Administered Dose 30 mg .ROUTE .STK-MED ONE Stop: 12/09/20 17:44 Lidocaine (Lidocaine 2% 5 Ml Sdv) Confirm Administered Dose 5 ml .ROUTE .STK-MED ONE Stop: 12/09/20 17:44 Lidocaine HCl (Lidocaine 1% 20 Ml Mdv) Confirm Administered Dose 20 ml .ROUTE .STK-MED ONE Stop: 12/09/20 17:35 Midazolam HCl (Midazolam 1 Mg/Ml 2 Ml Sdv) Confirm Administered Dose 2 mg .ROUTE .STK-MED ONE Stop: 12/09/20 17:41 Ondansetron HCl (Ondansetron 4 Mg/2 Ml Sdv) Confirm Administered Dose 4 mg .ROUTE .STK-MED ONE Stop: 12/09/20 17:44 Propofol (Propofol 200 Mg/20 Ml Sdv) Confirm Administered Dose 200 mg .ROUTE .STK-MED ONE Stop: 12/09/20 17:41 Propofol (Propofol 200 Mg/20 Ml Sdv) Confirm Administered Dose 200 mg .ROUTE .STK-MED ONE Stop: 12/09/20 18:09 Propofol (Propofol 200 Mg/20 Ml Sdv) Confirm Administered Dose 200 mg .ROUTE .STK-MED ONE Stop: 12/09/20 18:20 - Exam General: Alert, Oriented Lungs: Clear to Auscultation, Normal Respiratory Effort Cardiovascular: Regular Rate, Regular Rhythm GI/Abdominal Exam: Normal Bowel Sounds, Soft, Non-Tender Back Exam: Normal Inspection, Full Range of Motion Extremities: Other (surgical wound left foot) - Patient Data Lab Results Last 24 hrs: Laboratory Results - last 24 hr 12/11/20 12/11/20 12/11/20 Range/Units 17:26 20:28 23:45 WBC (4.0-11.0) K/uL RBC (4.30-5.90) M/uL Hgb (12.0-16.0) g/dL Hct (36.0-46.0) % MCV (80.0-98.0) fL MCH (27.0-32.0) pg MCHC (31.0-37.0) g/dL RDW Std Deviation (28.0-62.0) fl RDW Coeff of Olimpia (11.0-15.0) % Plt Count (150-400) K/uL MPV (7.40-12.00) fL Neut % (Auto) (48.0-80.0) % Lymph % (Auto) (16.0-40.0) % [place] % (Auto) (0.0-15.0) % Eos % (Auto) (0.0-7.0) % Baso % (Auto) (0.0-1.5) % Neut # (Auto) (1.4-5.7) K/uL Lymph # (Auto) (0.6-2.4) K/uL [place] # (Auto) (0.0-0.8) K/uL Eos # (Auto) (0.0-0.7) K/uL Baso # (Auto) (0.0-0.1) K/uL Nucleated RBC % /100WBC Nucleated RBCs # K/uL POC Glucose 234 H 219 H (70-99) mg/dL Vancomycin Trough 16.9 H (5.0-10.0) ug/mL 12/12/20 12/12/20 12/12/20 Range/Units 05:25 06:45 10:49 WBC 7.17 (4.0-11.0) K/uL RBC 3.98 L (4.30-5.90) M/uL Hgb 12.1 (12.0-16.0) g/dL Hct 35.2 L (36.0-46.0) % MCV 88.4 (80.0-98.0) fL MCH 30.4 (27.0-32.0) pg MCHC 34.4 (31.0-37.0) g/dL RDW Std Deviation 41.7 (28.0-62.0) fl RDW Coeff of Olimpia 13 (11.0-15.0) % Plt Count 254 (150-400) K/uL MPV 10.70 (7.40-12.00) fL Neut % (Auto) 45.2 L (48.0-80.0) % Lymph % (Auto) 37.8 (16.0-40.0) % [place] % (Auto) 10.5 (0.0-15.0) % Eos % (Auto) 5.9 (0.0-7.0) % Baso % (Auto) 0.6 (0.0-1.5) % Neut # (Auto) 3.3 (1.4-5.7) K/uL Lymph # (Auto) 2.7 H (0.6-2.4) K/uL [place] # (Auto) 0.8 (0.0-0.8) K/uL Eos # (Auto) 0.4 (0.0-0.7) K/uL Baso # (Auto) 0.0 (0.0-0.1) K/uL Nucleated RBC % 0.0 /100WBC Nucleated RBCs # 0 K/uL POC Glucose 142 H 221 H (70-99) mg/dL Vancomycin Trough (5.0-10.0) ug/mL Result Diagrams: 12/12/20 05:25 12/11/20 07:35 Kofi Results Last 24 hrs: Microbiology 12/09/20 18:49 Aerobic Culture - Preliminary Foot, Left Gram Stain - Final Anaerobic Culture - Preliminary Sepsis Event Note - Evaluation Sepsis Screening Result: No Definite Risk - Focused Exam Vital Signs: Vital Signs Temp Pulse Resp BP BP BP Pulse Ox 12/12/20 11:00 36.4 C 69 22 H 113/68 94 L 12/12/20 09:55 133/82 12/12/20 07:53 36.7 C 73 22 H 133/82 93 L 12/12/20 04:57 36.1 C 74 16 119/65 93 L - Problem List & Annotations (1) Cellulitis SNOMED Code(s): 209066791 Code(s): L03.90 - CELLULITIS, UNSPECIFIED Status: Acute Current Visit: No Qualifiers: Site of cellulitis: extremity Site of cellulitis of extremity: lower extremity Laterality: right Qualified Code(s): L03.115 - Cellulitis of right lower limb (2) Diabetes SNOMED Code(s): 76312197 Code(s): E11.9 - TYPE 2 DIABETES MELLITUS WITHOUT COMPLICATIONS Status: Acute Current Visit: No (3) Diabetic foot ulcer SNOMED Code(s): 548271806 Code(s): E11.621 - TYPE 2 DIABETES MELLITUS WITH FOOT ULCER; L97.509 - NON- PRESSURE CHRONIC ULCER OTH PRT UNSP FOOT W UNSP SEVERITY Status: Acute Current Visit: No Qualifiers: Diabetes mellitus type: type 2 Laterality: left Non-pressure ulcer stage: with necrosis of muscle (4) Diabetic ulcer of foot associated with diabetes mellitus due to underlying condition, limited to breakdown of skin SNOMED Code(s): 457004413, 144795485 Code(s): E08.621 - DIABETES MELLITUS DUE TO UNDERLYING CONDITION W FOOT ULCER; L97.501 - NON-PRS CHR ULCER OTH PRT UNSP FOOT LIMITED TO BRKDWN SKIN Status: Acute Current Visit: No Qualifiers: Diabetic foot ulcer location: unspecified part of foot Laterality: right Qualified Code(s): E08.621 - Diabetes mellitus due to underlying condition with foot ulcer; L97.511 - Non-pressure chronic ulcer of other part of right foot limited to breakdown of skin (5) Hyperlipemia SNOMED Code(s): 17844123 Code(s): E78.5 - HYPERLIPIDEMIA, UNSPECIFIED Status: Chronic Current Visit: No (6) Hypertension SNOMED Code(s): 06760694 Code(s): I10 - ESSENTIAL (PRIMARY) HYPERTENSION Status: Chronic Current Visit: No (7) Neuropathy SNOMED Code(s): 394903812 Code(s): G62.9 - POLYNEUROPATHY, UNSPECIFIED Status: Chronic Current Visit: No (8) Obesity SNOMED Code(s): 606594855, 583172894 Code(s): E66.9 - OBESITY, UNSPECIFIED Status: Chronic Current Visit: No - Problem List Review Problem List Initiated/Reviewed/Updated: Yes - My Orders Last 24 Hours: My Active Orders 12/11/20 21:00 atorvaSTATin [Lipitor] 10 mg PO BEDTIME - Plan Plan:: 3 days s/p I&D with sesamoidectomy. 2. Dressing change performed. Packing removed, saline flush performed, right foot surgical site status post I&D, medial sesamoid bone has been excised, culture has been sent for sensitivity, Gram satin negative, culture is pending cont broad-spectrum antibiotics, awaiting cultures from recent I/D, previous culture growing klebsiella oxytoca susceptible to oral antibiotics For pain control start IV morphine as needed Continue gabapentin for neuropathy Sliding scale insulin for diabetes Duo-Nebs as needed for shortness of breath Resume home meds as appropriate Appreciate recommendations of podiatry, likely will need wound vac upon dc Dispo: pending cultures
--- NOTE | 2020-12-12 17:30 | CR ---
Indication: Surgical removal of medial left toe sesamoid bone. Technique: Fluoroscopy provided during left foot surgery. Greater than 1 hour fluoro time. 5 images. Comparison: MRI left foot 12/09/2020. Findings/Impression : Fluoroscopic spot images obtained during surgical removal of the medial 1st digit sesamoid bone. Soft tissue swelling about the 1st digit and plantar aspect of the forefoot. Dictated by Lu Omer MD @ 12/12/2020 5:29:[address] Lu Omer @ Dec 12 2020 5:29PM
[2020-12-13] MEDS: Piperacillin/Tazobactam 4.5 GM in Sodium Chloride 0.9% 100 ML IV SCH ×4 (04:50→17:41)
[2020-12-13] MEDS: Heparin Sodium 5,000 Units/ML Vial SUBCUT SCH ×4 (04:51→21:25)
[2020-12-13] MEDS: Gabapentin 300 MG Cap PO SCH ×4 (04:52→21:25)
[2020-12-13] MEDS: atorvaSTATin 10 MG Tab PO SCH ×2 (05:23→21:25)
[2020-12-13] MEDS: Pantoprazole 40 MG in Sodium Chloride 0.9% 10 ML IV SCH (05:24)
[2020-12-13 05:46] LABS: CARBON DIOXIDE,CO2 27.6 mmol/L (21.0-32.0); CHLORIDE,CL 100 mmol/L (98-107); GLUCOSE RANDOM 135 mg/dL (74-106); POTASSIUM,K 3.7 mmol/L (3.5-5.1); SODIUM,NA 136 mmol/L (136-145)
[2020-12-13 05:51] LABS: BLOOD UREA NITROGEN,BUN 15 mg/dL (7.0-18.0)
[2020-12-13] MEDS ORDERED: Magnesium Sulfate/Water 4 GM in Premix Bag 1 BAG IV ONE (08:11)
[2020-12-13] MEDS: Lisinopril 10 MG Tab PO SCH (09:13)
[2020-12-13] MEDS: DULoxetine 30 MG Cap PO SCH (09:14)
[2020-12-13] MEDS: Insulin Isophane NPH, Human 100 Units/ML 10 ML Vial SUBCUT SCH ×2 (09:16→21:29)
--- NOTE | 2020-12-13 09:53 | PCM.CONSN ---
- General Info Date of Service: 12/13/20 Admission Dx/Problem (Free Text): Admission Diagnosis/Problem Admission Diagnosis/Problem Diabetic foot infection Subjective Update: Patient seen at bedside, no acute distress. She is 4 days s/p I&D with sesamoidectomy left foot. Patient states she is feeling more pain at times in her foot as her blood sugar stabilizes. Functional Status: Reports: Pain Controlled, Tolerating Diet - Review of Systems General: Reports: No Symptoms - Patient Data Vitals - Most Recent: Last Vital Signs Temp 37.1 C 12/13/20 07:29 Pulse 79 12/13/20 07:29 Resp 16 12/13/20 07:29 BP 126/74 12/13/20 09:13 Pulse Ox 92 L 12/13/20 07:29 Weight - Most Recent: 104.145 kg I&O - Last 24 Hours: Intake & Output 12/12/20 12/13/20 12/13/20 22:59 06:59 14:59 Intake Total 1120 1040 Output Total 1600 2550 Balance -480 -1510 Lab Results Last 24 Hours: Laboratory Results - last 24 hr 12/12/20 12/12/20 12/12/20 Range/Units 10:49 17:27 20:55 WBC (4.0-11.0) K/uL RBC (4.30-5.90) M/uL Hgb (12.0-16.0) g/dL Hct (36.0-46.0) % MCV (80.0-98.0) fL MCH (27.0-32.0) pg MCHC (31.0-37.0) g/dL RDW Std Deviation (28.0-62.0) fl RDW Coeff of Olimpia (11.0-15.0) % Plt Count (150-400) K/uL MPV (7.40-12.00) fL Neut % (Auto) (48.0-80.0) % Lymph % (Auto) (16.0-40.0) % Grand % (Auto) (0.0-15.0) % Eos % (Auto) (0.0-7.0) % Baso % (Auto) (0.0-1.5) % Neut # (Auto) (1.4-5.7) K/uL Lymph # (Auto) (0.6-2.4) K/uL Grand # (Auto) (0.0-0.8) K/uL Eos # (Auto) (0.0-0.7) K/uL Baso # (Auto) (0.0-0.1) K/uL Nucleated RBC % /100WBC Nucleated RBCs # K/uL Sodium (136-145) mmol/L Potassium (3.5-5.1) mmol/L Chloride (98-107) mmol/L Carbon Dioxide (21.0-32.0) mmol/L BUN (7.0-18.0) mg/dL Creatinine (0.6-1.0) mg/dL Est Cr Clr Drug Dosing mL/min Estimated GFR (MDRD) ml/min Glucose (74-106) mg/dL POC Glucose 221 H 151 H 205 H (70-99) mg/dL Calcium (8.5-10.1) mg/dL Phosphorus (2.6-4.7) mg/dL Magnesium (1.8-2.4) mg/dL 12/13/20 12/13/20 12/13/20 Range/Units 04:55 04:55 06:39 WBC 8.48 (4.0-11.0) K/uL RBC 4.23 L (4.30-5.90) M/uL Hgb 12.7 (12.0-16.0) g/dL Hct 37.0 (36.0-46.0) % MCV 87.5 (80.0-98.0) fL MCH 30.0 (27.0-32.0) pg MCHC 34.3 (31.0-37.0) g/dL RDW Std Deviation 41.5 (28.0-62.0) fl RDW Coeff of Olimpia 13 (11.0-15.0) % Plt Count 270 (150-400) K/uL MPV 10.70 (7.40-12.00) fL Neut % (Auto) 52.8 (48.0-80.0) % Lymph % (Auto) 32.2 (16.0-40.0) % Grand % (Auto) 9.8 (0.0-15.0) % Eos % (Auto) 4.8 (0.0-7.0) % Baso % (Auto) 0.4 (0.0-1.5) % Neut # (Auto) 4.5 (1.4-5.7) K/uL Lymph # (Auto) 2.7 H (0.6-2.4) K/uL Grand # (Auto) 0.8 (0.0-0.8) K/uL Eos # (Auto) 0.4 (0.0-0.7) K/uL Baso # (Auto) 0.0 (0.0-0.1) K/uL Nucleated RBC % 0.0 /100WBC Nucleated RBCs # 0 K/uL Sodium 136 (136-145) mmol/L Potassium 3.7 (3.5-5.1) mmol/L Chloride 100 (98-107) mmol/L Carbon Dioxide 27.6 (21.0-32.0) mmol/L BUN 15 (7.0-18.0) mg/dL Creatinine 0.8 (0.6-1.0) mg/dL Est Cr Clr Drug Dosing 70.66 mL/min Estimated GFR (MDRD) > 60.0 ml/min Glucose 135 H (74-106) mg/dL POC Glucose 129 H (70-99) mg/dL Calcium 9.4 (8.5-10.1) mg/dL Phosphorus 3.8 (2.6-4.7) mg/dL Magnesium 1.6 L (1.8-2.4) mg/dL Kofi Results Last 24 Hours: Microbiology 12/09/20 18:49 Aerobic Culture - Preliminary Foot, Left Gram Stain - Final Anaerobic Culture - Preliminary Med Orders - Current: Current Medications Acetaminophen (Acetaminophen 325 Mg Tab) 650 mg PO Q4H PRN PRN Reason: Pain (Mild 1-3)/fever Last Admin: 12/12/20 10:39 Dose: 650 mg Documented by: Albuterol/Ipratropium (Albuterol/Ipratropium 3.0-0.5 Mg/3 Ml Neb Soln) 3 ml NEB Q4HRRT PRN PRN Reason: Shortness Of Breath/wheezing Atorvastatin Calcium (Atorvastatin 10 Mg Tab) 10 mg PO BEDTIME МАРИНА Last Admin: 12/13/20 05:23 Dose: Not Given Documented by: Dextrose/Water (50% Dextrose In Water 50 Ml Syringe) 50 ml IVPUSH ASDIRECTED PRN PRN Reason: Hypoglycemia Duloxetine HCl (Duloxetine 30 Mg Cap) 30 mg PO DAILY [facility] Last Admin: 12/13/20 09:14 Dose: 30 mg Documented by: Gabapentin (Gabapentin 300 Mg Cap) 300 mg PO TID [facility] Last Admin: 12/13/20 04:59 Dose: 300 mg Documented by: Glucagon (Glucagon,Human Recombinant 1 Mg Vial) 1 mg IM ASDIRECTED PRN PRN Reason: Hypoglycemia Heparin Sodium (Porcine) (Heparin Sodium 5,000 Units/Ml Vial) 5,000 units SUBCUT Q8H [facility] Last Admin: 12/13/20 04:53 Dose: 5,000 units Documented by: Pantoprazole Sodium 40 mg/ (Sodium Chloride) 10 mls @ 300 mls/hr IV Q24H [facility] Last Admin: 12/13/20 05:24 Dose: Not Given Documented by: Piperacillin Sod/Tazobactam (Sod 4.5 gm/ Sodium Chloride) 100 mls @ 200 mls/hr IV Q6H [facility] Last Admin: 12/13/20 04:52 Dose: 200 mls/hr Documented by: Magnesium Sulfate 4 gm/ Premix 100 mls @ 33.333 mls/hr IV ONETIME ONE Stop: 12/13/20 11:10 Last Admin: 12/13/20 09:14 Dose: 33.333 mls/hr Documented by: Insulin Aspart (Insulin Aspart 100 Units/Ml 3 Ml Pen) 0 unit SUBCUT TIDAC [facility]; Protocol Last Admin: 12/12/20 17:35 Dose: 3 units Documented by: Insulin Human NPH (Insulin Isophane Nph, Human 100 Units/Ml 10 Ml Vial) 30 unit SUBCUT BID [facility] Last Admin: 12/13/20 09:16 Dose: 30 units Documented by: Lisinopril (Lisinopril 10 Mg Tab) 10 mg PO DAILY [facility] Last Admin: 12/13/20 09:13 Dose: 10 mg Documented by: Morphine Sulfate (Morphine 2 Mg/Ml Syringe) 1 mg IVPUSH Q4H PRN PRN Reason: Pain (severe 7-10) Ondansetron HCl (Ondansetron 4 Mg/2 Ml Sdv) 4 mg IVPUSH Q4H PRN PRN Reason: Nausea/Vomiting Vancomycin HCl (Pharmacy To Dose - Vancomycin) 1 dose .XX ASDIRECTED [facility] Discontinued Medications Acetaminophen (Acetaminophen 325 Mg Tab) 650 mg PO Q4H PRN PRN Reason: Pain (Mild 1-3)/fever Atorvastatin Calcium (Atorvastatin 20 Mg Tab) 20 mg PO BEDTIME [facility] Last Admin: 12/10/20 20:41 Dose: 20 mg Documented by: Bupivacaine HCl (Bupivacaine 0.5% 30 Ml Sdv) Confirm Administered Dose 30 ml .ROUTE .STK-MED ONE Stop: 12/09/20 17:35 Cefazolin Sodium (Cefazolin 1 Gm Vial) Confirm Administered Dose 1 gm .ROUTE .STK-MED ONE Stop: 12/09/20 17:34 Dextrose/Water (50% Dextrose In Water 50 Ml Syringe) 50 ml IVPUSH ASDIRECTED PRN PRN Reason: Hypoglycemia Fentanyl (Fentanyl 100 Mcg/2 Ml Sdv) Confirm Administered Dose 100 mcg .ROUTE .STK-MED ONE Stop: 12/09/20 17:41 Glucagon (Glucagon,Human Recombinant 1 Mg Vial) 1 mg IM ASDIRECTED PRN PRN Reason: Hypoglycemia Glycopyrrolate (Glycopyrrolate 0.2 Mg/Ml Sdv) Confirm Administered Dose 0.2 mg .ROUTE .STK-MED ONE Stop: 12/09/20 17:44 Lactated Ringer's (Ringers, Lactated) 1,000 mls @ 999 mls/hr IV BOLUS ONE Stop: 12/08/20 22:11 Last Admin: 12/08/20 22:23 Dose: 999 mls/hr Documented by: Piperacillin Sod/Tazobactam (Sod 3.375 gm/ Sodium Chloride) 50 mls @ 100 mls/hr IV Q8H [facility] Last Admin: 12/09/20 05:11 Dose: 100 mls/hr Documented by: Vancomycin HCl 1.5 gm/ Premix 300 mls @ 200 mls/hr IV ONETIME ONE Stop: 12/08/20 23:59 Last Admin: 12/09/20 00:27 Dose: 200 mls/hr Documented by: Vancomycin HCl 1.5 gm/ Premix 300 mls @ 200 mls/hr IV Q12H [facility] Last Admin: 12/11/20 12:34 Dose: 200 mls/hr Documented by: Magnesium Sulfate 2 gm/ Premix 50 mls @ 12.5 mls/hr IV ONETIME ONE Stop: 12/10/20 13:09 Last Admin: 12/10/20 09:49 Dose: 12.5 mls/hr Documented by: Vancomycin HCl 1.25 gm/ Sodium (Chloride) 250 mls @ 166.667 mls/hr IV Q12H [facility] Last Infusion: 12/12/20 02:05 Dose: Infused Documented by: Ketorolac Tromethamine (Ketorolac 30 Mg/Ml Sdv) Confirm Administered Dose 30 mg .ROUTE .STK-MED ONE Stop: 12/09/20 17:44 Lidocaine (Lidocaine 2% 5 Ml Sdv) Confirm Administered Dose 5 ml .ROUTE .STK-MED ONE Stop: 12/09/20 17:44 Lidocaine HCl (Lidocaine 1% 20 Ml Mdv) Confirm Administered Dose 20 ml .ROUTE .STK-MED ONE Stop: 12/09/20 17:35 Midazolam HCl (Midazolam 1 Mg/Ml 2 Ml Sdv) Confirm Administered Dose 2 mg .ROUTE .STK-MED ONE Stop: 12/09/20 17:41 Ondansetron HCl (Ondansetron 4 Mg/2 Ml Sdv) Confirm Administered Dose 4 mg .ROUTE .STK-MED ONE Stop: 12/09/20 17:44 Propofol (Propofol 200 Mg/20 Ml Sdv) Confirm Administered Dose 200 mg .ROUTE .STK-MED ONE Stop: 12/09/20 17:41 Propofol (Propofol 200 Mg/20 Ml Sdv) Confirm Administered Dose 200 mg .ROUTE .STK-MED ONE Stop: 12/09/20 18:09 Propofol (Propofol 200 Mg/20 Ml Sdv) Confirm Administered Dose 200 mg .ROUTE . STK-MED ONE Stop: 12/09/20 18:20 - Exam Peripheral Pulses: 1+: Posterior Tibial (L), Dorsalis Pedis (L) Skin: Warm Wound/Incisions: Drainage (minimal, serous), Erythema Improving Physical Findings Comments:: there is no change to incision site, no purulence, minimal serous drainage upon exsanguination Sepsis Event Note - Evaluation Sepsis Screening Result: No Definite Risk - Focused Exam Vital Signs: Vital Signs Temp Pulse Resp BP BP BP Pulse Ox 12/13/20 09:13 126/74 12/13/20 07:29 37.1 C 79 16 126/74 92 L 12/13/20 04:00 37.3 C 75 18 108/54 L 95 12/13/20 00:00 36.6 C 78 19 129/79 96 12/12/20 23:00 94 L Consult PN Assessment/Plan POD#: 4 Procedures: Procedures ASSAY OF CK (CPK) (08/24/20) ASSAY OF LACTIC ACID (08/24/20) ASSAY OF MAGNESIUM (08/16/20) ASSAY OF PHOSPHORUS (08/16/20) ASSAY OF VANCOMYCIN (08/24/20) BLOOD CULTURE FOR BACTERIA (08/24/20) C-REACTIVE PROTEIN (08/24/20) COMPLETE CBC W/AUTO DIFF WBC (08/24/20) COMPREHEN METABOLIC PANEL (08/24/20) CT LOWER EXTREMITY W/O DYE (08/24/20) EMERGENCY DEPT VISIT (08/24/20) EXTREMITY STUDY (08/16/20) GLUCOSE BLOOD TEST (08/24/20) GLYCOSYLATED HEMOGLOBIN TEST (12/08/20) LIPID PANEL (12/08/20) METABOLIC PANEL TOTAL CA (08/24/20) OFFICE O/P EST MINIMAL PROB (11/27/20) PT EVAL LOW COMPLEX 20 MIN (08/24/20) RBC SED RATE AUTOMATED (08/24/20) ROUTINE VENIPUNCTURE (12/08/20) SARS-COV-2 COVID-19 AMP PRB (08/24/20) THER/PROPH/DIAG INJ IV PUSH (11/27/20) THER/PROPH/DIAG INJ SC/IM (08/24/20) THER/PROPH/DIAG IV INF ADDON (08/24/20) THER/PROPH/DIAG IV INF INIT (11/27/20) TX/PRO/DX INJ NEW DRUG ADDON (11/27/20) TX/PRO/DX INJ SAME DRUG 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 (08/24/20) TX/PROPH/DG ADDL SEQ IV INF (08/24/20) URINALYSIS AUTO W/O SCOPE (12/08/20) URINALYSIS AUTO W/SCOPE (08/24/20) X-RAY EXAM CHEST 1 VIEW (08/24/20) X-RAY EXAM OF FOOT (08/23/20) s/p left foot I&D c sesamoidectomy (1) Diabetic foot ulcer SNOMED Code(s): 003114334 Code(s): E11.621 - TYPE 2 DIABETES MELLITUS WITH FOOT ULCER; L97.509 - NON- PRESSURE CHRONIC ULCER OTH PRT UNSP FOOT W UNSP SEVERITY Current Visit: No Qualifiers: Diabetic foot ulcer location: other Diabetes mellitus type: type 2 Laterality: left Non-pressure ulcer stage: with necrosis of muscle Qualified Code(s): E11.621 - Type 2 diabetes mellitus with foot ulcer; 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 Patient seen and examined. She is 4 days s/p left foot I&D with sesamoidectomy. 2. Dressing change performed. Packing removed, saline flush performed, right foot surgical site repacked, and new dressing applied. 3. Final cultures pending from OR but preliminary results are negative for growth. 4. Continue IV Zosyn. 5. The [facility] vac at [employer] [facility] so I will contact [facility] to arrange a new one for the left foot, likely to be applied in my office after discharge. 6. Will follow.
[2020-12-13] MEDS: Insulin Aspart 100 Units/ML 3 ML Pen SUBCUT SCH ×4 (10:28→17:40)
--- NOTE | 2020-12-13 10:54 | PCM.PN ---
- General Info Date of Service: 12/13/20 Admission Dx/Problem (Free Text): Admission Diagnosis/Problem Admission Diagnosis/Problem Diabetic foot infection Subjective Update: Continues to feel well. Having increased sensitivity and pain to left foot as this heals and blood sugar stabilized. Denies any chest pain or shortness of breath. Patient feeling very anxious to go home. No other concerns. Functional Status: Reports: Pain Controlled, Tolerating Diet, Ambulating, Urinating - Review of Systems General: Reports: No Symptoms. Denies: Weakness, Fatigue HEENT: Reports: No Symptoms. Denies: Headaches, Sore Throat, Visual Changes Pulmonary: Reports: No Symptoms. Denies: Shortness of Breath Cardiovascular: Reports: No Symptoms. Denies: Chest Pain Gastrointestinal: Reports: No Symptoms. Denies: Abdominal Pain, Nausea, Vomiting Genitourinary: Reports: No Symptoms. Denies: Dysuria, Frequency Musculoskeletal: Reports: No Symptoms Skin: Reports: No Symptoms Neurological: Reports: No Symptoms Psychiatric: Reports: No Symptoms - Patient Data Vitals - Most Recent: Last Vital Signs Temp 98.7 F 12/13/20 07:29 Pulse 79 12/13/20 07:29 Resp 16 12/13/20 07:29 BP 126/74 12/13/20 09:13 Pulse Ox 92 L 12/13/20 07:29 Weight - Most Recent: 104.145 kg I&O - Last 24 Hours: Intake & Output 12/12/20 12/13/20 12/13/20 22:59 06:59 14:59 Intake Total 1120 1040 Output Total 1600 2550 Balance -480 -1510 Lab Results Last 24 Hours: Laboratory Results - last 24 hr 12/12/20 12/12/20 12/12/20 Range/Units 10:49 17:27 20:55 WBC (4.0-11.0) K/uL RBC (4.30-5.90) M/uL Hgb (12.0-16.0) g/dL Hct (36.0-46.0) % MCV (80.0-98.0) fL MCH (27.0-32.0) pg MCHC (31.0-37.0) g/dL RDW Std Deviation (28.0-62.0) fl RDW Coeff of Olimpia (11.0-15.0) % Plt Count (150-400) K/uL MPV (7.40-12.00) fL Neut % (Auto) (48.0-80.0) % Lymph % (Auto) (16.0-40.0) % [place] % (Auto) (0.0-15.0) % Eos % (Auto) (0.0-7.0) % Baso % (Auto) (0.0-1.5) % Neut # (Auto) (1.4-5.7) K/uL Lymph # (Auto) (0.6-2.4) K/uL [place] # (Auto) (0.0-0.8) K/uL Eos # (Auto) (0.0-0.7) K/uL Baso # (Auto) (0.0-0.1) K/uL Nucleated RBC % /100WBC Nucleated RBCs # K/uL Sodium (136-145) mmol/L Potassium (3.5-5.1) mmol/L Chloride (98-107) mmol/L Carbon Dioxide (21.0-32.0) mmol/L BUN (7.0-18.0) mg/dL Creatinine (0.6-1.0) mg/dL Est Cr Clr Drug Dosing mL/min Estimated GFR (MDRD) ml/min Glucose (74-106) mg/dL POC Glucose 221 H 151 H 205 H (70-99) mg/dL Calcium (8.5-10.1) mg/dL Phosphorus (2.6-4.7) mg/dL Magnesium (1.8-2.4) mg/dL 12/13/20 12/13/20 12/13/20 Range/Units 04:55 04:55 06:39 WBC 8.48 (4.0-11.0) K/uL RBC 4.23 L (4.30-5.90) M/uL Hgb 12.7 (12.0-16.0) g/dL Hct 37.0 (36.0-46.0) % MCV 87.5 (80.0-98.0) fL MCH 30.0 (27.0-32.0) pg MCHC 34.3 (31.0-37.0) g/dL RDW Std Deviation 41.5 (28.0-62.0) fl RDW Coeff of Olimpia 13 (11.0-15.0) % Plt Count 270 (150-400) K/uL MPV 10.70 (7.40-12.00) fL Neut % (Auto) 52.8 (48.0-80.0) % Lymph % (Auto) 32.2 (16.0-40.0) % [place] % (Auto) 9.8 (0.0-15.0) % Eos % (Auto) 4.8 (0.0-7.0) % Baso % (Auto) 0.4 (0.0-1.5) % Neut # (Auto) 4.5 (1.4-5.7) K/uL Lymph # (Auto) 2.7 H (0.6-2.4) K/uL [place] # (Auto) 0.8 (0.0-0.8) K/uL Eos # (Auto) 0.4 (0.0-0.7) K/uL Baso # (Auto) 0.0 (0.0-0.1) K/uL Nucleated RBC % 0.0 /100WBC Nucleated RBCs # 0 K/uL Sodium 136 (136-145) mmol/L Potassium 3.7 (3.5-5.1) mmol/L Chloride 100 (98-107) mmol/L Carbon Dioxide 27.6 (21.0-32.0) mmol/L BUN 15 (7.0-18.0) mg/dL Creatinine 0.8 (0.6-1.0) mg/dL Est Cr Clr Drug Dosing 70.66 mL/min Estimated GFR (MDRD) > 60.0 ml/min Glucose 135 H (74-106) mg/dL POC Glucose 129 H (70-99) mg/dL Calcium 9.4 (8.5-10.1) mg/dL Phosphorus 3.8 (2.6-4.7) mg/dL Magnesium 1.6 L (1.8-2.4) mg/dL Kofi Results Last 24 Hours: Microbiology 12/09/20 18:49 Aerobic Culture - Preliminary Foot, Left Gram Stain - Final Anaerobic Culture - Preliminary Med Orders - Current: Current Medications Acetaminophen (Acetaminophen 325 Mg Tab) 650 mg PO Q4H PRN PRN Reason: Pain (Mild 1-3)/fever Last Admin: 12/12/20 10:39 Dose: 650 mg Documented by: Albuterol/Ipratropium (Albuterol/Ipratropium 3.0-0.5 Mg/3 Ml Neb Soln) 3 ml NEB Q4HRRT PRN PRN Reason: Shortness Of Breath/wheezing Atorvastatin Calcium (Atorvastatin 10 Mg Tab) 10 mg PO BEDTIME [facility] Last Admin: 12/13/20 05:23 Dose: Not Given Documented by: Dextrose/Water (50% Dextrose In Water 50 Ml Syringe) 50 ml IVPUSH ASDIRECTED PRN PRN Reason: Hypoglycemia Duloxetine HCl (Duloxetine 30 Mg Cap) 30 mg PO DAILY [facility] Last Admin: 12/13/20 09:14 Dose: 30 mg Documented by: Gabapentin (Gabapentin 300 Mg Cap) 300 mg PO TID [facility] Last Admin: 12/13/20 04:59 Dose: 300 mg Documented by: Glucagon (Glucagon,Human Recombinant 1 Mg Vial) 1 mg IM ASDIRECTED PRN PRN Reason: Hypoglycemia Heparin Sodium (Porcine) (Heparin Sodium 5,000 Units/Ml Vial) 5,000 units SUBCUT Q8H [facility] Last Admin: 12/13/20 04:53 Dose: 5,000 units Documented by: Pantoprazole Sodium 40 mg/ (Sodium Chloride) 10 mls @ 300 mls/hr IV Q24H [facility] Last Admin: 12/13/20 05:24 Dose: Not Given Documented by: Magnesium Sulfate 4 gm/ Premix 100 mls @ 33.333 mls/hr IV ONETIME ONE Stop: 12/13/20 11:10 Last Admin: 12/13/20 09:14 Dose: 33.333 mls/hr Documented by: Piperacillin Sod/Tazobactam (Sod 4.5 gm/ Sodium Chloride) 100 mls @ 200 mls/hr IV Q6H [facility] Insulin Aspart (Insulin Aspart 100 Units/Ml 3 Ml Pen) 0 unit SUBCUT TIDAC [facility]; Protocol Last Admin: 12/13/20 10:30 Dose: Not Given Documented by: Insulin Human NPH (Insulin Isophane Nph, Human 100 Units/Ml 10 Ml Vial) 30 unit SUBCUT BID [facility] Last Admin: 12/13/20 09:16 Dose: 30 units Documented by: Lisinopril (Lisinopril 10 Mg Tab) 10 mg PO DAILY [facility] Last Admin: 12/13/20 09:13 Dose: 10 mg Documented by: Morphine Sulfate (Morphine 2 Mg/Ml Syringe) 1 mg IVPUSH Q4H PRN PRN Reason: Pain (severe 7-10) Ondansetron HCl (Ondansetron 4 Mg/2 Ml Sdv) 4 mg IVPUSH Q4H PRN PRN Reason: Nausea/Vomiting Vancomycin HCl (Pharmacy To Dose - Vancomycin) 1 dose .XX ASDIRECTED МАРИНА Discontinued Medications Acetaminophen (Acetaminophen 325 Mg Tab) 650 mg PO Q4H PRN PRN Reason: Pain (Mild 1-3)/fever Atorvastatin Calcium (Atorvastatin 20 Mg Tab) 20 mg PO BEDTIME [facility] Last Admin: 12/10/20 20:41 Dose: 20 mg Documented by: Bupivacaine HCl (Bupivacaine 0.5% 30 Ml Sdv) Confirm Administered Dose 30 ml .ROUTE .STK-MED ONE Stop: 12/09/20 17:35 Cefazolin Sodium (Cefazolin 1 Gm Vial) Confirm Administered Dose 1 gm .ROUTE .STK-MED ONE Stop: 12/09/20 17:34 Dextrose/Water (50% Dextrose In Water 50 Ml Syringe) 50 ml IVPUSH ASDIRECTED PRN PRN Reason: Hypoglycemia Fentanyl (Fentanyl 100 Mcg/2 Ml Sdv) Confirm Administered Dose 100 mcg .ROUTE .STK-MED ONE Stop: 12/09/20 17:41 Glucagon (Glucagon,Human Recombinant 1 Mg Vial) 1 mg IM ASDIRECTED PRN PRN Reason: Hypoglycemia Glycopyrrolate (Glycopyrrolate 0.2 Mg/Ml Sdv) Confirm Administered Dose 0.2 mg .ROUTE .STK-MED ONE Stop: 12/09/20 17:44 Lactated Ringer's (Ringers, Lactated) 1,000 mls @ 999 mls/hr IV BOLUS ONE Stop: 12/08/20 22:11 Last Admin: 12/08/20 22:23 Dose: 999 mls/hr Documented by: Piperacillin Sod/Tazobactam (Sod 3.375 gm/ Sodium Chloride) 50 mls @ 100 mls/hr IV Q8H [facility] Last Admin: 12/09/20 05:11 Dose: 100 mls/hr Documented by: Vancomycin HCl 1.5 gm/ Premix 300 mls @ 200 mls/hr IV ONETIME ONE Stop: 12/08/20 23:59 Last Admin: 12/09/20 00:27 Dose: 200 mls/hr Documented by: Vancomycin HCl 1.5 gm/ Premix 300 mls @ 200 mls/hr IV Q12H [facility] Last Admin: 12/11/20 12:34 Dose: 200 mls/hr Documented by: Piperacillin Sod/Tazobactam (Sod 4.5 gm/ Sodium Chloride) 100 mls @ 200 mls/hr IV Q6H [facility] Last Admin: 12/13/20 04:52 Dose: 200 mls/hr Documented by: Magnesium Sulfate 2 gm/ Premix 50 mls @ 12.5 mls/hr IV ONETIME ONE Stop: 12/10/20 13:09 Last Admin: 12/10/20 09:49 Dose: 12.5 mls/hr Documented by: Vancomycin HCl 1.25 gm/ Sodium (Chloride) 250 mls @ 166.667 mls/hr IV Q12H [facility] Last Infusion: 12/12/20 02:05 Dose: Infused Documented by: Ketorolac Tromethamine (Ketorolac 30 Mg/Ml Sdv) Confirm Administered Dose 30 mg .ROUTE .STK-MED ONE Stop: 12/09/20 17:44 Lidocaine (Lidocaine 2% 5 Ml Sdv) Confirm Administered Dose 5 ml .ROUTE .STK-MED ONE Stop: 12/09/20 17:44 Lidocaine HCl (Lidocaine 1% 20 Ml Mdv) Confirm Administered Dose 20 ml .ROUTE .STK-MED ONE Stop: 12/09/20 17:35 Midazolam HCl (Midazolam 1 Mg/Ml 2 Ml Sdv) Confirm Administered Dose 2 mg .ROUTE .STK-MED ONE Stop: 12/09/20 17:41 Ondansetron HCl (Ondansetron 4 Mg/2 Ml Sdv) Confirm Administered Dose 4 mg .ROUTE .STK-MED ONE Stop: 12/09/20 17:44 Propofol (Propofol 200 Mg/20 Ml Sdv) Confirm Administered Dose 200 mg .ROUTE .STK-MED ONE Stop: 12/09/20 17:41 Propofol (Propofol 200 Mg/20 Ml Sdv) Confirm Administered Dose 200 mg .ROUTE .STK-MED ONE Stop: 12/09/20 18:09 Propofol (Propofol 200 Mg/20 Ml Sdv) Confirm Administered Dose 200 mg .ROUTE .STK-MED ONE Stop: 07/09/21 18:20 - Exam Quality Assessment: DVT Prophylaxis. No: Supplemental Oxygen General: Alert, Oriented, Cooperative, No Acute Distress Lungs: Clear to Auscultation, Normal Respiratory Effort Cardiovascular: Regular Rate, Regular Rhythm GI/Abdominal Exam: Normal Bowel Sounds, Soft, Non-Tender Extremities: Normal Inspection, Normal Range of Motion, Non-Tender, No Pedal Edema Skin: Warm, Dry Wound/Incisions: Healing Well, Dressing Dry and Intact, Drainage (scant serous to L foot) Neurological: No New Focal Deficit Psy/Mental Status: Alert, Normal Affect, Normal Mood - Patient Data Lab Results Last 24 hrs: Laboratory Results - last 24 hr 12/12/20 12/12/20 12/12/20 Range/Units 10:49 17:27 20:55 WBC (4.0-11.0) K/uL RBC (4.30-5.90) M/uL Hgb (12.0-16.0) g/dL Hct (36.0-46.0) % MCV (80.0-98.0) fL MCH (27.0-32.0) pg MCHC (31.0-37.0) g/dL RDW Std Deviation (28.0-62.0) fl RDW Coeff of Olimpia (11.0-15.0) % Plt Count (150-400) K/uL MPV (7.40-12.00) fL Neut % (Auto) (48.0-80.0) % Lymph % (Auto) (16.0-40.0) % [place] % (Auto) (0.0-15.0) % Eos % (Auto) (0.0-7.0) % Baso % (Auto) (0.0-1.5) % Neut # (Auto) (1.4-5.7) K/uL Lymph # (Auto) (0.6-2.4) K/uL [place] # (Auto) (0.0-0.8) K/uL Eos # (Auto) (0.0-0.7) K/uL Baso # (Auto) (0.0-0.1) K/uL Nucleated RBC % /100WBC Nucleated RBCs # K/uL Sodium (136-145) mmol/L Potassium (3.5-5.1) mmol/L Chloride (98-107) mmol/L Carbon Dioxide (21.0-32.0) mmol/L BUN (7.0-18.0) mg/dL Creatinine (0.6-1.0) mg/dL Est Cr Clr Drug Dosing mL/min Estimated GFR (MDRD) ml/min Glucose (74-106) mg/dL POC Glucose 221 H 151 H 205 H (70-99) mg/dL Calcium (8.5-10.1) mg/dL Phosphorus (2.6-4.7) mg/dL Magnesium (1.8-2.4) mg/dL 12/13/20 12/13/20 12/13/20 Range/Units 04:55 04:55 06:39 WBC 8.48 (4.0-11.0) K/uL RBC 4.23 L (4.30-5.90) M/uL Hgb 12.7 (12.0-16.0) g/dL Hct 37.0 (36.0-46.0) % MCV 87.5 (80.0-98.0) fL MCH 30.0 (27.0-32.0) pg MCHC 34.3 (31.0-37.0) g/dL RDW Std Deviation 41.5 (28.0-62.0) fl RDW Coeff of Olimpia 13 (11.0-15.0) % Plt Count 270 (150-400) K/uL MPV 10.70 (7.40-12.00) fL Neut % (Auto) 52.8 (48.0-80.0) % Lymph % (Auto) 32.2 (16.0-40.0) % [place] % (Auto) 9.8 (0.0-15.0) % Eos % (Auto) 4.8 (0.0-7.0) % Baso % (Auto) 0.4 (0.0-1.5) % Neut # (Auto) 4.5 (1.4-5.7) K/uL Lymph # (Auto) 2.7 H (0.6-2.4) K/uL [place] # (Auto) 0.8 (0.0-0.8) K/uL Eos # (Auto) 0.4 (0.0-0.7) K/uL Baso # (Auto) 0.0 (0.0-0.1) K/uL Nucleated RBC % 0.0 /100WBC Nucleated RBCs # 0 K/uL Sodium 136 (136-145) mmol/L Potassium 3.7 (3.5-5.1) mmol/L Chloride 100 (98-107) mmol/L Carbon Dioxide 27.6 (21.0-32.0) mmol/L BUN 15 (7.0-18.0) mg/dL Creatinine 0.8 (0.6-1.0) mg/dL Est Cr Clr Drug Dosing 70.66 mL/min Estimated GFR (MDRD) > 60.0 ml/min Glucose 135 H (74-106) mg/dL POC Glucose 129 H (70-99) mg/dL Calcium 9.4 (8.5-10.1) mg/dL Phosphorus 3.8 (2.6-4.7) mg/dL Magnesium 1.6 L (1.8-2.4) mg/dL Result Diagrams: 12/13/20 04:55 12/13/20 04:55 Kofi Results Last 24 hrs: Microbiology 12/09/20 18:49 Aerobic Culture - Preliminary Foot, Left Gram Stain - Final Anaerobic Culture - Preliminary Sepsis Event Note - Evaluation Sepsis Screening Result: No Definite Risk - Focused Exam Vital Signs: Vital Signs Temp Pulse Resp BP BP BP Pulse Ox 12/13/20 09:13 126/74 12/13/20 07:29 98.7 F 79 16 126/74 92 L 12/13/20 04:00 99.1 F 75 18 108/54 L 95 12/13/20 00:00 97.8 F 78 19 129/79 96 12/12/20 23:00 94 L - Problem List & Annotations (1) Diabetic ulcer of foot associated with diabetes mellitus due to underlying condition, limited to breakdown of skin SNOMED Code(s): 479680518, 176015295 Code(s): E08.621 - DIABETES MELLITUS DUE TO UNDERLYING CONDITION W FOOT ULCER; L97.501 - NON-PRS CHR ULCER OTH PRT UNSP FOOT LIMITED TO BRKDWN SKIN Status: Acute Current Visit: No Qualifiers: Diabetic foot ulcer location: midfoot Laterality: left Qualified Code(s): E08.621 - Diabetes mellitus due to underlying condition with foot ulcer; L97.421 - Non-pressure chronic ulcer of left heel and midfoot limited to breakdown of skin (2) Hypomagnesemia SNOMED Code(s): 310158653 Code(s): E83.42 - HYPOMAGNESEMIA Status: Acute Current Visit: No (3) Hyperlipemia SNOMED Code(s): 40623345 Code(s): E78.5 - HYPERLIPIDEMIA, UNSPECIFIED Status: Chronic Current Visit: No (4) Hypertension SNOMED Code(s): 36269340 Code(s): I10 - ESSENTIAL (PRIMARY) HYPERTENSION Status: Chronic Current Visit: No (5) Neuropathy SNOMED Code(s): 677725005 Code(s): G62.9 - POLYNEUROPATHY, UNSPECIFIED Status: Chronic Current Visit: No (6) Obesity SNOMED Code(s): 434655609, 593720615 Code(s): E66.9 - OBESITY, UNSPECIFIED Status: Chronic Current Visit: No - Problem List Review Problem List Initiated/Reviewed/Updated: Yes - My Orders Last 24 Hours: My Active Orders 12/13/20 08:11 Magnesium Sulfate/Water [Magnesium Sulfate in Water 4 GM/100 ML] 4 gm Premix Bag 1 bag IV ONETIME - Plan Plan:: This 55-year-old female admitted with infected left diabetic foot ulcer status post I&D with sesamoidectomy 1. Diabetic foot ulcer, left status post I&D with sesamoidectomy -Dr. Pete performed skin change at bedside today -Cultures from his office returning Klebsiella oxytoca currently susceptible to Zosyn. -OR culture negative aerobic and no growth. Anaerobic portion continues to be pending but shows no growth for the past day. Would want to know report on this prior to discharging home. -Discharge pending cultures -Wound VAC she had previously was returned to [facility]. Dr. Pete working on obtaining anyone for placement at his office upon discharge. 2. DM type II -Continue NovoLog sliding scale with long-acting coverage -ADA diet -Blood sugar stabilizing and doing well. 3. Hypertension/HLD -Continue lisinopril and Lipitor 4. Neuropathy -Continue gabapentin -Continue Cymbalta VTE prophylaxis: Heparin GI prophylaxis: Protonix CODE STATUS full code Dispo: pending cultures
[2020-12-14] MEDS: Piperacillin/Tazobactam 4.5 GM in Sodium Chloride 0.9% 100 ML IV SCH ×4 (00:15→17:34)
[2020-12-14] MEDS: Acetaminophen 325 MG Tab PO PRN ×2 (00:24→12:35)
[2020-12-14 05:49] LABS: BLOOD UREA NITROGEN,BUN 16 mg/dL (7.0-18.0); CARBON DIOXIDE,CO2 29.3 mmol/L (21.0-32.0); CHLORIDE,CL 102 mmol/L (98-107); GLUCOSE RANDOM 131 mg/dL (74-106); POTASSIUM,K 3.8 mmol/L (3.5-5.1); SODIUM,NA 138 mmol/L (136-145)
[2020-12-14] MEDS: Heparin Sodium 5,000 Units/ML Vial SUBCUT SCH ×3 (06:01→21:17)
[2020-12-14] MEDS: Gabapentin 300 MG Cap PO SCH ×3 (06:02→21:18)
[2020-12-14] MEDS: Insulin Aspart 100 Units/ML 3 ML Pen SUBCUT SCH ×4 (07:16→17:31)
[2020-12-14] MEDS: Pantoprazole 40 MG Tab.CR PO SCH (07:48)
[2020-12-14] MEDS: Lisinopril 10 MG Tab PO SCH (08:44)
[2020-12-14] MEDS: DULoxetine 30 MG Cap PO SCH (08:44)
[2020-12-14] MEDS: Insulin Isophane NPH, Human 100 Units/ML 10 ML Vial SUBCUT SCH ×2 (08:47→21:18)
--- NOTE | 2020-12-14 10:43 | PCM.PN ---
- General Info Date of Service: 12/14/20 Admission Dx/Problem (Free Text): Admission Diagnosis/Problem Admission Diagnosis/Problem Diabetic foot infection Subjective Update: Continues to do well today very eager for discharge home when possible. She understands we are waiting for cultures to become final. Denies any chest pain shortness of breath. No significant pain to left foot. No other concerns. Functional Status: Reports: Pain Controlled, Tolerating Diet, Ambulating, Urinating - Review of Systems General: Reports: No Symptoms. Denies: Weakness, Fatigue HEENT: Reports: No Symptoms. Denies: Headaches, Sore Throat, Visual Changes Pulmonary: Reports: No Symptoms. Denies: Shortness of Breath Cardiovascular: Reports: No Symptoms. Denies: Chest Pain Gastrointestinal: Reports: No Symptoms. Denies: Abdominal Pain, Nausea, Vomiting Genitourinary: Reports: No Symptoms. Denies: Dysuria, Frequency Musculoskeletal: Reports: No Symptoms Skin: Reports: No Symptoms Neurological: Reports: No Symptoms Psychiatric: Reports: No Symptoms - Patient Data Vitals - Most Recent: Last Vital Signs Temp 96.7 F L 12/14/20 07:19 Pulse 74 12/14/20 07:19 Resp 16 12/14/20 07:19 BP 127/59 L 12/14/20 08:44 Pulse Ox 95 12/14/20 07:19 Weight - Most Recent: 104.145 kg I&O - Last 24 Hours: Intake & Output 12/13/20 12/14/20 12/14/20 22:59 06:59 14:59 Intake Total 1570 1100 240 Output Total 2350 1450 Balance -780 -350 240 Lab Results Last 24 Hours: Laboratory Results - last 24 hr 12/13/20 12/13/20 12/13/20 Range/Units 11:52 16:49 21:24 WBC (4.0-11.0) K/uL RBC (4.30-5.90) M/uL Hgb (12.0-16.0) g/dL Hct (36.0-46.0) % MCV (80.0-98.0) fL MCH (27.0-32.0) pg MCHC (31.0-37.0) g/dL RDW Std Deviation (28.0-62.0) fl RDW Coeff of Olimpia (11.0-15.0) % Plt Count (150-400) K/uL MPV (7.40-12.00) fL Neut % (Auto) (48.0-80.0) % Lymph % (Auto) (16.0-40.0) % Frederick % (Auto) (0.0-15.0) % Eos % (Auto) (0.0-7.0) % Baso % (Auto) (0.0-1.5) % Neut # (Auto) (1.4-5.7) K/uL Lymph # (Auto) (0.6-2.4) K/uL Frederick # (Auto) (0.0-0.8) K/uL Eos # (Auto) (0.0-0.7) K/uL Baso # (Auto) (0.0-0.1) K/uL Nucleated RBC % /100WBC Nucleated RBCs # K/uL Sodium (136-145) mmol/L Potassium (3.5-5.1) mmol/L Chloride (98-107) mmol/L Carbon Dioxide (21.0-32.0) mmol/L BUN (7.0-18.0) mg/dL Creatinine (0.6-1.0) mg/dL Est Cr Clr Drug Dosing mL/min Estimated GFR (MDRD) ml/min Glucose (74-106) mg/dL POC Glucose 199 H 252 H 201 H (70-99) mg/dL Calcium (8.5-10.1) mg/dL Magnesium (1.8-2.4) mg/dL 12/14/20 12/14/20 Range/Units 04:57 04:57 WBC 8.48 (4.0-11.0) K/uL RBC 4.33 (4.30-5.90) M/uL Hgb 12.9 (12.0-16.0) g/dL Hct 38.1 (36.0-46.0) % MCV 88.0 (80.0-98.0) fL MCH 29.8 (27.0-32.0) pg MCHC 33.9 (31.0-37.0) g/dL RDW Std Deviation 41.9 (28.0-62.0) fl RDW Coeff of Olimpia 13 (11.0-15.0) % Plt Count 284 (150-400) K/uL MPV 10.80 (7.40-12.00) fL Neut % (Auto) 52.1 (48.0-80.0) % Lymph % (Auto) 34.8 (16.0-40.0) % Frederick % (Auto) 8.0 (0.0-15.0) % Eos % (Auto) 4.6 (0.0-7.0) % Baso % (Auto) 0.5 (0.0-1.5) % Neut # (Auto) 4.4 (1.4-5.7) K/uL Lymph # (Auto) 3.0 H (0.6-2.4) K/uL Frederick # (Auto) 0.7 (0.0-0.8) K/uL Eos # (Auto) 0.4 (0.0-0.7) K/uL Baso # (Auto) 0.0 (0.0-0.1) K/uL Nucleated RBC % 0.0 /100WBC Nucleated RBCs # 0 K/uL Sodium 138 (136-145) mmol/L Potassium 3.8 (3.5-5.1) mmol/L Chloride 102 (98-107) mmol/L Carbon Dioxide 29.3 (21.0-32.0) mmol/L BUN 16 (7.0-18.0) mg/dL Creatinine 0.9 (0.6-1.0) mg/dL Est Cr Clr Drug Dosing 62.80 mL/min Estimated GFR (MDRD) > 60.0 ml/min Glucose 131 H (74-106) mg/dL POC Glucose (70-99) mg/dL Calcium 9.0 (8.5-10.1) mg/dL Magnesium 1.8 (1.8-2.4) mg/dL Kofi Results Last 24 Hours: Microbiology 12/09/20 18:49 Aerobic Culture - Preliminary Foot, Left Gram Stain - Final Anaerobic Culture - Preliminary Med Orders - Current: Current Medications Acetaminophen (Acetaminophen 325 Mg Tab) 650 mg PO Q4H PRN PRN Reason: Pain (Mild 1-3)/fever Last Admin: 12/14/20 00:24 Dose: 650 mg Documented by: Albuterol/Ipratropium (Albuterol/Ipratropium 3.0-0.5 Mg/3 Ml Neb Soln) 3 ml NEB Q4HRRT PRN PRN Reason: Shortness Of Breath/wheezing Atorvastatin Calcium (Atorvastatin 10 Mg Tab) 10 mg PO BEDTIME [facility] Last Admin: 12/13/20 21:25 Dose: 10 mg Documented by: Dextrose/Water (50% Dextrose In Water 50 Ml Syringe) 50 ml IVPUSH ASDIRECTED PRN PRN Reason: Hypoglycemia Duloxetine HCl (Duloxetine 30 Mg Cap) 30 mg PO DAILY [facility] Last Admin: 12/14/20 08:44 Dose: 30 mg Documented by: Gabapentin (Gabapentin 300 Mg Cap) 300 mg PO TID [facility] Last Admin: 12/14/20 06:02 Dose: 300 mg Documented by: Glucagon (Glucagon,Human Recombinant 1 Mg Vial) 1 mg IM ASDIRECTED PRN PRN Reason: Hypoglycemia Heparin Sodium (Porcine) (Heparin Sodium 5,000 Units/Ml Vial) 5,000 units SUBCUT Q8H [facility] Last Admin: 12/14/20 06:01 Dose: 5,000 units Documented by: Piperacillin Sod/Tazobactam (Sod 4.5 gm/ Sodium Chloride) 100 mls @ 200 mls/hr IV Q6H [facility] Last Admin: 12/14/20 06:02 Dose: 200 mls/hr Documented by: Insulin Aspart (Insulin Aspart 100 Units/Ml 3 Ml Pen) 0 unit SUBCUT TIDAC [facility]; Protocol Last Admin: 12/14/20 07:40 Dose: Not Given Documented by: Insulin Human NPH (Insulin Isophane Nph, Human 100 Units/Ml 10 Ml Vial) 30 unit SUBCUT BID [facility] Last Admin: 12/14/20 08:47 Dose: 30 units Documented by: Lisinopril (Lisinopril 10 Mg Tab) 10 mg PO DAILY [facility] Last Admin: 12/14/20 08:44 Dose: 10 mg Documented by: Morphine Sulfate (Morphine 2 Mg/Ml Syringe) 1 mg IVPUSH Q4H PRN PRN Reason: Pain (severe 7-10) Ondansetron HCl (Ondansetron 4 Mg/2 Ml Sdv) 4 mg IVPUSH Q4H PRN PRN Reason: Nausea/Vomiting Pantoprazole Sodium (Pantoprazole 40 Mg Tab.Cr) 40 mg PO ACBREAKFAST [facility] Last Admin: 12/14/20 07:48 Dose: 40 mg Documented by: Vancomycin HCl (Pharmacy To Dose - Vancomycin) 1 dose .XX ASDIRECTED МАРИНА Discontinued Medications Acetaminophen (Acetaminophen 325 Mg Tab) 650 mg PO Q4H PRN PRN Reason: Pain (Mild 1-3)/fever Atorvastatin Calcium (Atorvastatin 20 Mg Tab) 20 mg PO BEDTIME [facility] Last Admin: 12/10/20 20:41 Dose: 20 mg Documented by: Bupivacaine HCl (Bupivacaine 0.5% 30 Ml Sdv) Confirm Administered Dose 30 ml .ROUTE .STK-MED ONE Stop: 12/09/20 17:35 Cefazolin Sodium (Cefazolin 1 Gm Vial) Confirm Administered Dose 1 gm .ROUTE .STK-MED ONE Stop: 12/09/20 17:34 Dextrose/Water (50% Dextrose In Water 50 Ml Syringe) 50 ml IVPUSH ASDIRECTED PRN PRN Reason: Hypoglycemia Fentanyl (Fentanyl 100 Mcg/2 Ml Sdv) Confirm Administered Dose 100 mcg .ROUTE .STK-MED ONE Stop: 12/09/20 17:41 Glucagon (Glucagon,Human Recombinant 1 Mg Vial) 1 mg IM ASDIRECTED PRN PRN Reason: Hypoglycemia Glycopyrrolate (Glycopyrrolate 0.2 Mg/Ml Sdv) Confirm Administered Dose 0.2 mg .ROUTE .STK-MED ONE Stop: 12/09/20 17:44 Lactated Ringer's (Ringers, Lactated) 1,000 mls @ 999 mls/hr IV BOLUS ONE Stop: 12/08/20 22:11 Last Admin: 12/08/20 22:23 Dose: 999 mls/hr Documented by: Pantoprazole Sodium 40 mg/ (Sodium Chloride) 10 mls @ 300 mls/hr IV Q24H [facility] Last Admin: 12/13/20 05:24 Dose: Not Given Documented by: Piperacillin Sod/Tazobactam (Sod 3.375 gm/ Sodium Chloride) 50 mls @ 100 mls/hr IV Q8H [facility] Last Admin: 12/09/20 05:11 Dose: 100 mls/hr Documented by: Vancomycin HCl 1.5 gm/ Premix 300 mls @ 200 mls/hr IV ONETIME ONE Stop: 12/08/20 23:59 Last Admin: 12/09/20 00:27 Dose: 200 mls/hr Documented by: Vancomycin HCl 1.5 gm/ Premix 300 mls @ 200 mls/hr IV Q12H [facility] Last Admin: 12/11/20 12:34 Dose: 200 mls/hr Documented by: Piperacillin Sod/Tazobactam (Sod 4.5 gm/ Sodium Chloride) 100 mls @ 200 mls/hr IV Q6H [facility] Last Admin: 12/13/20 04:52 Dose: 200 mls/hr Documented by: Magnesium Sulfate 2 gm/ Premix 50 mls @ 12.5 mls/hr IV ONETIME ONE Stop: 12/10/20 13:09 Last Admin: 12/10/20 09:49 Dose: 12.5 mls/hr Documented by: Vancomycin HCl 1.25 gm/ Sodium (Chloride) 250 mls @ 166.667 mls/hr IV Q12H [facility] Last Infusion: 12/12/20 02:05 Dose: Infused Documented by: Magnesium Sulfate 4 gm/ Premix 100 mls @ 33.333 mls/hr IV ONETIME ONE Stop: 12/13/20 11:10 Last Admin: 12/13/20 09:14 Dose: 33.333 mls/hr Documented by: Ketorolac Tromethamine (Ketorolac 30 Mg/Ml Sdv) Confirm Administered Dose 30 mg .ROUTE .STK-MED ONE Stop: 12/09/20 17:44 Lidocaine (Lidocaine 2% 5 Ml Sdv) Confirm Administered Dose 5 ml .ROUTE .STK-MED ONE Stop: 12/09/20 17:44 Lidocaine HCl (Lidocaine 1% 20 Ml Mdv) Confirm Administered Dose 20 ml .ROUTE .STK-MED ONE Stop: 12/09/20 17:35 Midazolam HCl (Midazolam 1 Mg/Ml 2 Ml Sdv) Confirm Administered Dose 2 mg .ROUTE .STK-MED ONE Stop: 12/09/20 17:41 Ondansetron HCl (Ondansetron 4 Mg/2 Ml Sdv) Confirm Administered Dose 4 mg .ROUTE .STK-MED ONE Stop: 12/09/20 17:44 Propofol (Propofol 200 Mg/20 Ml Sdv) Confirm Administered Dose 200 mg .ROUTE .STK-MED ONE Stop: 12/09/20 17:41 Propofol (Propofol 200 Mg/20 Ml Sdv) Confirm Administered Dose 200 mg .ROUTE .STK-MED ONE Stop: 12/09/20 18:09 Propofol (Propofol 200 Mg/20 Ml Sdv) Confirm Administered Dose 200 mg .ROUTE .STK-MED ONE Stop: 12/09/20 18:20 - Exam General: Alert, Oriented, Cooperative, No Acute Distress Lungs: Clear to Auscultation, Normal Respiratory Effort Cardiovascular: Regular Rate, Regular Rhythm GI/Abdominal Exam: Normal Bowel Sounds, Soft, Non-Tender Back Exam: Normal Inspection, Full Range of Motion Extremities: Normal Inspection, Normal Range of Motion, Non-Tender Wound/Incisions: Dressing Dry and Intact, No Drainage Neurological: No New Focal Deficit Psy/Mental Status: Alert, Normal Affect, Normal Mood - Patient Data Lab Results Last 24 hrs: Laboratory Results - last 24 hr 12/13/20 12/13/20 12/13/20 Range/Units 11:52 16:49 21:24 WBC (4.0-11.0) K/uL RBC (4.30-5.90) M/uL Hgb (12.0-16.0) g/dL Hct (36.0-46.0) % MCV (80.0-98.0) fL MCH (27.0-32.0) pg MCHC (31.0-37.0) g/dL RDW Std Deviation (28.0-62.0) fl RDW Coeff of Olimpia (11.0-15.0) % Plt Count (150-400) K/uL MPV (7.40-12.00) fL Neut % (Auto) (48.0-80.0) % Lymph % (Auto) (16.0-40.0) % Frederick % (Auto) (0.0-15.0) % Eos % (Auto) (0.0-7.0) % Baso % (Auto) (0.0-1.5) % Neut # (Auto) (1.4-5.7) K/uL Lymph # (Auto) (0.6-2.4) K/uL Frederick # (Auto) (0.0-0.8) K/uL Eos # (Auto) (0.0-0.7) K/uL Baso # (Auto) (0.0-0.1) K/uL Nucleated RBC % /100WBC Nucleated RBCs # K/uL Sodium (136-145) mmol/L Potassium (3.5-5.1) mmol/L Chloride (98-107) mmol/L Carbon Dioxide (21.0-32.0) mmol/L BUN (7.0-18.0) mg/dL Creatinine (0.6-1.0) mg/dL Est Cr Clr Drug Dosing mL/min Estimated GFR (MDRD) ml/min Glucose (74-106) mg/dL POC Glucose 199 H 252 H 201 H (70-99) mg/dL Calcium (8.5-10.1) mg/dL Magnesium (1.8-2.4) mg/dL 12/14/20 12/14/20 Range/Units 04:57 04:57 WBC 8.48 (4.0-11.0) K/uL RBC 4.33 (4.30-5.90) M/uL Hgb 12.9 (12.0-16.0) g/dL Hct 38.1 (36.0-46.0) % MCV 88.0 (80.0-98.0) fL MCH 29.8 (27.0-32.0) pg MCHC 33.9 (31.0-37.0) g/dL RDW Std Deviation 41.9 (28.0-62.0) fl RDW Coeff of Olimpia 13 (11.0-15.0) % Plt Count 284 (150-400) K/uL MPV 10.80 (7.40-12.00) fL Neut % (Auto) 52.1 (48.0-80.0) % Lymph % (Auto) 34.8 (16.0-40.0) % Frederick % (Auto) 8.0 (0.0-15.0) % Eos % (Auto) 4.6 (0.0-7.0) % Baso % (Auto) 0.5 (0.0-1.5) % Neut # (Auto) 4.4 (1.4-5.7) K/uL Lymph # (Auto) 3.0 H (0.6-2.4) K/uL Frederick # (Auto) 0.7 (0.0-0.8) K/uL Eos # (Auto) 0.4 (0.0-0.7) K/uL Baso # (Auto) 0.0 (0.0-0.1) K/uL Nucleated RBC % 0.0 /100WBC Nucleated RBCs # 0 K/uL Sodium 138 (136-145) mmol/L Potassium 3.8 (3.5-5.1) mmol/L Chloride 102 (98-107) mmol/L Carbon Dioxide 29.3 (21.0-32.0) mmol/L BUN 16 (7.0-18.0) mg/dL Creatinine 0.9 (0.6-1.0) mg/dL Est Cr Clr Drug Dosing 62.80 mL/min Estimated GFR (MDRD) > 60.0 ml/min Glucose 131 H (74-106) mg/dL POC Glucose (70-99) mg/dL Calcium 9.0 (8.5-10.1) mg/dL Magnesium 1.8 (1.8-2.4) mg/dL Result Diagrams: 12/14/20 04:57 12/14/20 04:57 Kofi Results Last 24 hrs: Microbiology 12/09/20 18:49 Aerobic Culture - Preliminary Foot, Left Gram Stain - Final Anaerobic Culture - Preliminary Sepsis Event Note - Evaluation Sepsis Screening Result: No Definite Risk - Focused Exam Vital Signs: Vital Signs Temp Pulse Resp BP BP Pulse Ox 12/14/20 08:44 127/59 L 12/14/20 07:19 96.7 F L 74 16 130/75 95 12/14/20 04:03 97.7 F 83 16 134/69 94 L 12/14/20 00:19 98.7 F 73 17 111/59 L 95 - Problem List & Annotations (1) Diabetic ulcer of foot associated with diabetes mellitus due to underlying condition, limited to breakdown of skin SNOMED Code(s): 322195026, 046870785 Code(s): E08.621 - DIABETES MELLITUS DUE TO UNDERLYING CONDITION W FOOT ULCER; L97.501 - NON-PRS CHR ULCER OTH PRT UNSP FOOT LIMITED TO BRKDWN SKIN Status: Acute Current Visit: No Qualifiers: Diabetic foot ulcer location: midfoot Laterality: left Qualified Code(s): E08.621 - Diabetes mellitus due to underlying condition with foot ulcer; L97.421 - Non-pressure chronic ulcer of left heel and midfoot limited to breakdown of skin (2) Hypomagnesemia SNOMED Code(s): 982132256 Code(s): E83.42 - HYPOMAGNESEMIA Status: Acute Current Visit: No (3) Hyperlipemia SNOMED Code(s): 94843147 Code(s): E78.5 - HYPERLIPIDEMIA, UNSPECIFIED Status: Chronic Current Visit: No (4) Hypertension SNOMED Code(s): 33179073 Code(s): I10 - ESSENTIAL (PRIMARY) HYPERTENSION Status: Chronic Current Visit: No (5) Neuropathy SNOMED Code(s): 307137521 Code(s): G62.9 - POLYNEUROPATHY, UNSPECIFIED Status: Chronic Current Visit: No (6) Obesity SNOMED Code(s): 118678120, 339506133 Code(s): E66.9 - OBESITY, UNSPECIFIED Status: Chronic Current Visit: No - Problem List Review Problem List Initiated/Reviewed/Updated: Yes - My Orders Last 24 Hours: My Active Orders 12/14/20 07:30 Pantoprazole [ProTONIX] 40 mg PO ACBREAKFAST 12/15/20 05:11 BASIC METABOLIC PANEL,BMP [CHEM] AM CBC WITH AUTO DIFF [HEME] AM MAGNESIUM [CHEM] AM 12/16/20 05:11 BASIC METABOLIC PANEL,BMP [CHEM] AM CBC WITH AUTO DIFF [HEME] AM MAGNESIUM [CHEM] AM - Plan Plan:: This 55-year-old female admitted with infected left diabetic foot ulcer status post I&D with sesamoidectomy 1. Diabetic foot ulcer, left status post I&D with sesamoidectomy -Dr. Pete performed dressing change at bedside today -Cultures from his office returning Klebsiella oxytoca currently susceptible to Zosyn, continue this for now as long as anaerobic culture returns negative we will send home with Levaquin. -OR culture negative aerobic and no growth. Anaerobic portion continues to be pending but shows no growth for the past day. Would want to know report on this prior to discharging home. -Discharge pending cultures -Wound VAC she had previously was returned to [facility]. Dr. Pete working on obtaining anyone for placement at his office upon discharge. 2. DM type II -Continue NovoLog sliding scale with long-acting coverage -ADA diet -Blood sugar stabilizing and doing well. 3. Hypertension/HLD -Continue lisinopril and Lipitor 4. Neuropathy -Continue gabapentin -Continue Cymbalta VTE prophylaxis: Heparin GI prophylaxis: Protonix CODE STATUS full code Dispo: pending cultures
[2020-12-14] MEDS: atorvaSTATin 10 MG Tab PO SCH (21:18)
--- NOTE | 2020-12-14 23:23 | PN ---
This note is being dictated rather than entered directly into the system due to the inability to connect to the system today. There is some technical glitch in the [facility] System. The patient was admitted on December 08, 2020. Admission diagnosis is diabetic foot infection, left foot. SUBJECTIVE: The patient is seen at bedside. No acute distress. Still has low-level periodic pain or intermittent pain in the left foot. Denies any other issues. OBJECTIVE: Posterior tibial and dorsalis pedis pulses are 1+ on the left foot. The skin is warm. There is minimal erythema. There is minimal serous drainage from the open portion of the incision site, which is the medial aspect of the left 1st metatarsophalangeal joint area. There is minimal fibrotic layer present. There is no purulence. No malodor. The site measures 3.5 cm proximal to distal by 1.7 from superior to inferior. Depth is maximum 1.0 cm. ASSESSMENT: Unchanged. The patient is status post surgery 5 days. Surgery consisted of incision and drainage, left foot and excision of the medial sesamoid bone material, left foot. The incision site is partially open to allow for drainage and cultures are still pending. PLAN: 1. The patient is seen and examined. 2. Dressing changes performed. The packing was removed. Saline flush was performed on the left foot surgical site. Remaining sutures were left intact on the periphery on each end of the incision site. The plantar aspect remains well coapted. The site is repacked with 0.25-inch iodoform gauze followed by fluff gauze and Kerlix roll, which was secured with an Angel bandage. 3. Final anaerobic culture still pending as this was sent to [facility]. 4. Communication with Ammy Moser. We agree that the patient should be discharged tomorrow if we receive either a final culture result that shows that the situation can be managed with outpatient oral antibiotics or if we fail to receive a final culture result for the anaerobic portion. So, therefore IV antibiotics will be continued, and finally I will continue to follow the patient; however, discharge is planned for tomorrow. Also, I am arranging for wound VAC to be applied tomorrow either by me or by Liza Roa at [facility]. The patient has my phone number and will contact me with any concerns at any time. MONIKA / CHRISTIANO /[id number] MTDD
[2020-12-15] MEDS: Piperacillin/Tazobactam 4.5 GM in Sodium Chloride 0.9% 100 ML IV SCH ×2 (00:27→05:53)
[2020-12-15] MEDS: Heparin Sodium 5,000 Units/ML Vial SUBCUT SCH (05:53)
[2020-12-15] MEDS: Gabapentin 300 MG Cap PO SCH (05:53)
[2020-12-15 05:57] LABS: CARBON DIOXIDE,CO2 29.7 mmol/L (21.0-32.0); POTASSIUM,K 3.9 mmol/L (3.5-5.1)
[2020-12-15] MEDS: Insulin Aspart 100 Units/ML 3 ML Pen SUBCUT SCH ×2 (07:45→12:13)
[2020-12-15] MEDS: Pantoprazole 40 MG Tab.CR PO SCH (07:46)
[2020-12-15] MEDS ORDERED: Magnesium Sulfate/Water 2 GM in Premix Bag 1 BAG IV ONE (07:59)
[2020-12-15] MEDS ORDERED: Levofloxacin 750 MG Tab PO SCH (09:15)
[2020-12-15] MEDS: DULoxetine 30 MG Cap PO SCH (09:22)
[2020-12-15] MEDS: Lisinopril 10 MG Tab PO SCH (09:22)
[2020-12-15] MEDS: Insulin Isophane NPH, Human 100 Units/ML 10 ML Vial SUBCUT SCH (09:23)
--- NOTE | 2020-12-15 10:02 | PCM.DCSUM1 ---
Discharge Summary - Hospital Course Brief History: Patient is a 55-year-old female with a significant past medical history of poorly controlled diabetes, chronic lower neuropathy, hypertension, hyperlipidemia and obesity who was sent over by her security operations center operator due to concerns of worsening left foot diabetic foot ulcer. Patient has been treated for diabetic foot ulcers over the past several months with prolonged course of IV antibiotics. Currently she is getting IV antibiotic therapy and has still 5 more days of IV therapy left on outpatient basis. Patient last admission stool was due to diabetic foot ulcer in her right foot which now seems to have healed but patient states that over last 1 month her left foot has been acting up. Patient states that she saw her security operations center operator on outpatient basis whom was able to do some packing and collect wound cultures. Based on that IV antibiotic therapy was further prolonged for 2 more weeks in addition to the previous 4 weeks. Patient was towards the end of her IV antibiotic therapy as mentioned above she had 5 more days of antibiotic therapy left. Patient states that yesterday her security operations center operator had packed her left foot wound on plantar aspect and overnight the packing came through the dorsal aspect of her food. Patient has a direct through and through tunnel from dorsal to plantar side of her left foot. Patient also states that the foot is getting increasingly red and last 2 days. The wound cultures from yesterday are still pending. Patient states otherwise she has been doing well and her blood sugars have been under much better control . Patient's security operations center operator Dr. Pete personally called me requesting an admission for IV antibiotics and possible I&D versus surgery. Patient was admitted for further management - Discharge Data Discharge Date: 12/15/20 Discharge Disposition: Home, Self-Care 01 Condition: Good - Referral to Home Health Primary Care Physician: Carri Escobar MD - Discharge Diagnosis/Problem(s) (1) Diabetic ulcer of foot associated with diabetes mellitus due to underlying condition, limited to breakdown of skin SNOMED Code(s): 342942140, 121693212 ICD Code: E08.621 - DIABETES MELLITUS DUE TO UNDERLYING CONDITION W FOOT ULCER; L97.501 - NON-PRS CHR ULCER OTH PRT UNSP FOOT LIMITED TO BRKDWN SKIN Status: Acute Current Visit: No Qualifiers: Diabetic foot ulcer location: midfoot Laterality: left Qualified Code(s): E08.621 - Diabetes mellitus due to underlying condition with foot ulcer; L97.421 - Non-pressure chronic ulcer of left heel and midfoot limited to breakdown of skin (2) Hypomagnesemia SNOMED Code(s): 515787594 ICD Code: E83.42 - HYPOMAGNESEMIA Status: Acute Current Visit: No (3) Hyperlipemia SNOMED Code(s): 34748090 ICD Code: E78.5 - HYPERLIPIDEMIA, UNSPECIFIED Status: Chronic Current Visit: No (4) Hypertension SNOMED Code(s): 91804698 ICD Code: I10 - ESSENTIAL (PRIMARY) HYPERTENSION Status: Chronic Current Visit: No (5) Neuropathy SNOMED Code(s): 836431491 ICD Code: G62.9 - POLYNEUROPATHY, UNSPECIFIED Status: Chronic Current Visit: No (6) Obesity SNOMED Code(s): 438830839, 066004042 ICD Code: E66.9 - OBESITY, UNSPECIFIED Status: Chronic Current Visit: No - Patient Summary/Data Operative Procedure(s) Performed: 1. incision and drainage left foot. 2. debridement and excision of bone left foot. Consults: Consultations 12/09/20 00:25 Consult to Physician [CONS] Routine Hospital Course: Admission diagnoses infected Diabetic foot ulcer, left foot Discharge diagnoses infected Diabetic foot ulcer left foot infected with Klebsiella oxytoca Status post sesamoidectomy left foot Other PMH HTN DM type II HLD Mary was admitted secondary to concerns for worsening left foot diabetic ulcer with infection. She was admitted directly from her security operations center operator, Dr. Pete. She was started on empiric therapy including Zosyn and vancomycin. Cultures have been obtained at security operations center operator office the day prior. MRI of foot was obtained the following day. This revealed wounds medial and plantar to the first MTP joint connected by a tract. 2.3 x 0.7 x 2.8 cm complex fluid collection noted with thick walled cavity in the soft tissue plantar to the first MTP joint associated with wounds. Osteomyelitis of the medial hallux sesamoid. And first MTP joint effusion, septic arthritis was not excluded. Dr. Pete then took patient to surgery for left sesamoidectomy and debridement of diabetic wound. Patient continued on vancomycin and Zosyn cultures from surgery continue to show no growth. Aerobic no growth x5 days now Gram stain negative and anaerobic culture negative x3 days now. Cultures from podiatry clinic showed Klebsiella oxytoca x2 cultures which is sensitive to Levaquin. Patient does have PICC line in place but due to sesamoidectomy and removal of osteomyelitis patient able to be treated with oral antibiotics for 14 days. Patient doing well today continues to have left foot wound which dressings have been changed daily by podiatry. She will have wound VAC placed today or the following day when available at podiatry office or [facility]. She will be discharged home on 7 more days of antibiotics to complete full 14-day course. She will have Levaquin 750 mg p.o. daily. She is to monitor for side effects including joint or tendon pain and diarrhea. She verbalized understanding of these. PICC line is to remain in place at this time to ensure infection remained stable. This likely could be removed in the next week with PCP after evaluation of foot. Patient is to continue home medications including diabetic control. She was counseled on continuing to monitor her blood sugars closely to help with containing infection and ensuring complete resolution. All questions and concerns addressed today. She is to follow-up with podiatry as scheduled and PCP in 1 week. She is to return to the ER clinic if concerns should arise. - Patient Instructions Diet: Heart Healthy Diet, Diabetic Diet Activity: No Strenuous Activities Showering/Bathing: May Shower Notify Provider of: Fever, Increased Pain, Swelling and Redness, Drainage, Nausea and/or Vomiting Other/Special Instructions: Wound vac to be placed by Dr Pete when available in his office - Discharge Plan *PRESCRIPTION DRUG MONITORING PROGRAM REVIEWED*: Not Applicable *COPY OF PRESCRIPTION DRUG MONITORING REPORT IN PATIENT BRISEYDA: Not Applicable Prescriptions/Med Rec: levoFLOXacin [Levaquin] 750 mg PO DAILY #7 tab Home Medications: Home Meds Gabapentin [Neurontin] 300 mg PO TID 08/24/20 [History] lisinopriL [Lisinopril] 10 mg PO DAILY 08/24/20 [History] metFORMIN HCl [Metformin HCl] 500 mg PO BIDMEALS 08/24/20 [History] DULoxetine [Cymbalta] 30 mg PO DAILY 08/26/20 [History] Pantoprazole Sodium [Protonix] 40 mg PO DAILY PRN 10/24/20 [History] Acetaminophen [Tylenol] 650 mg PO Q4H PRN tablet 10/28/20 [Rx] Insulin Aspart [NovoLOG] 0 unit SUBCUT TIDAC pen 10/28/20 [Rx] Insulin Isophane NPH, Human [NovoLIN N] 30 unit SQ BID 30 Days #0 10/28/20 [Rx] Insulin Regular, Human [NovoLIN R] 12/08/20 [History] atorvaSTATin [Lipitor] 10 mg PO BEDTIME 12/11/20 [History] levoFLOXacin [Levaquin] 750 mg PO DAILY #7 tab 12/15/20 [Rx] Oxygen Therapy Mode: Room Air Patient Handouts: Diabetes Mellitus and Foot Care, Peripheral Neuropathy, Lev ofloxacin tablets Referrals: Carri Escobar MD [Primary Care Provider] - 12/20/20 11:15 am Asael Pete DPM [Physician] - - Discharge Summary/Plan Comment DC Time >30 min.: No - Patient Data Vitals - Most Recent: Last Vital Signs Temp 97.9 F 12/15/20 06:48 Pulse 84 12/15/20 06:48 Resp 16 12/15/20 06:48 BP 126/70 12/15/20 09:22 Pulse Ox 98 12/15/20 04:28 Weight - Most Recent: 104.145 kg I&O - Last 24 hours: Intake & Output 12/14/20 12/15/20 12/15/20 22:59 06:59 14:59 Intake Total 1300 1150 Output Total 1900 1500 Balance -600 -350 Lab Results - Last 24 hrs: Laboratory Results - last 24 hr 12/14/20 12/14/20 12/14/20 Range/Units 11:19 17:10 21:16 WBC (4.0-11.0) K/uL RBC (4.30-5.90) M/uL Hgb (12.0-16.0) g/dL Hct (36.0-46.0) % MCV (80.0-98.0) fL MCH (27.0-32.0) pg MCHC (31.0-37.0) g/dL RDW Std Deviation (28.0-62.0) fl RDW Coeff of [place] (11.0-15.0) % Plt Count (150-400) K/uL MPV (7.40-12.00) fL Neut % (Auto) (48.0-80.0) % Lymph % (Auto) (16.0-40.0) % [place] % (Auto) (0.0-15.0) % Eos % (Auto) (0.0-7.0) % Baso % (Auto) (0.0-1.5) % Neut # (Auto) (1.4-5.7) K/uL Lymph # (Auto) (0.6-2.4) K/uL [place] # (Auto) (0.0-0.8) K/uL Eos # (Auto) (0.0-0.7) K/uL Baso # (Auto) (0.0-0.1) K/uL Nucleated RBC % /100WBC Nucleated RBCs # K/uL Sodium (136-145) mmol/L Potassium (3.5-5.1) mmol/L Chloride (98-107) mmol/L Carbon Dioxide (21.0-32.0) mmol/L BUN (7.0-18.0) mg/dL Creatinine (0.6-1.0) mg/dL Est Cr Clr Drug Dosing mL/min Estimated GFR (MDRD) ml/min Glucose (74-106) mg/dL POC Glucose 207 H 222 H 164 H (70-99) mg/dL Calcium (8.5-10.1) mg/dL Magnesium (1.8-2.4) mg/dL 12/15/20 12/15/20 12/15/20 Range/Units 05:23 05:23 06:37 WBC 9.00 (4.0-11.0) K/uL RBC 4.44 (4.30-5.90) M/uL Hgb 13.1 (12.0-16.0) g/dL Hct 38.8 (36.0-46.0) % MCV 87.4 (80.0-98.0) fL MCH 29.5 (27.0-32.0) pg MCHC 33.8 (31.0-37.0) g/dL RDW Std Deviation 42.3 (28.0-62.0) fl RDW Coeff of [place] 13 (11.0-15.0) % Plt Count 282 (150-400) K/uL MPV 10.40 (7.40-12.00) fL Neut % (Auto) 53.8 (48.0-80.0) % Lymph % (Auto) 33.1 (16.0-40.0) % [place] % (Auto) 7.8 (0.0-15.0) % Eos % (Auto) 4.9 (0.0-7.0) % Baso % (Auto) 0.4 (0.0-1.5) % Neut # (Auto) 4.8 (1.4-5.7) K/uL Lymph # (Auto) 3.0 H (0.6-2.4) K/uL [place] # (Auto) 0.7 (0.0-0.8) K/uL Eos # (Auto) 0.4 (0.0-0.7) K/uL Baso # (Auto) 0.0 (0.0-0.1) K/uL Nucleated RBC % 0.0 /100WBC Nucleated RBCs # 0 K/uL Sodium 138 (136-145) mmol/L Potassium 3.9 (3.5-5.1) mmol/L Chloride 102 (98-107) mmol/L Carbon Dioxide 29.7 (21.0-32.0) mmol/L BUN 16 (7.0-18.0) mg/dL Creatinine 1.1 H (0.6-1.0) mg/dL Est Cr Clr Drug Dosing 51.39 mL/min Estimated GFR (MDRD) 51.4 ml/min Glucose 117 H (74-106) mg/dL POC Glucose 118 H (70-99) mg/dL Calcium 9.2 (8.5-10.1) mg/dL Magnesium 1.7 L (1.8-2.4) mg/dL ТАТЬЯНА Results - Last 24 hrs: Microbiology 12/09/20 18:49 Aerobic Culture - Preliminary Foot, Left Gram Stain - Final Anaerobic Culture - Preliminary Med Orders - Current: Current Medications Acetaminophen (Acetaminophen 325 Mg Tab) 650 mg PO Q4H PRN PRN Reason: Pain (Mild 1-3)/fever Last Admin: 12/14/20 12:35 Dose: 650 mg Documented by: Albuterol/Ipratropium (Albuterol/Ipratropium 3.0-0.5 Mg/3 Ml Neb Soln) 3 ml NEB Q4HRRT PRN PRN Reason: Shortness Of Breath/wheezing Atorvastatin Calcium (Atorvastatin 10 Mg Tab) 10 mg PO BEDTIME [facility] Last Admin: 12/14/20 21:18 Dose: 10 mg Documented by: Dextrose/Water (50% Dextrose In Water 50 Ml Syringe) 50 ml IVPUSH ASDIRECTED PRN PRN Reason: Hypoglycemia Duloxetine HCl (Duloxetine 30 Mg Cap) 30 mg PO DAILY [facility] Last Admin: 12/15/20 09:22 Dose: 30 mg Documented by: Gabapentin (Gabapentin 300 Mg Cap) 300 mg PO TID [facility] Last Admin: 12/15/20 05:53 Dose: 300 mg Documented by: Glucagon (Glucagon,Human Recombinant 1 Mg Vial) 1 mg IM ASDIRECTED PRN PRN Reason: Hypoglycemia Heparin Sodium (Porcine) (Heparin Sodium 5,000 Units/Ml Vial) 5,000 units SUBCUT Q8H [facility] Last Admin: 12/15/20 05:53 Dose: 5,000 units Documented by: Insulin Aspart (Insulin Aspart 100 Units/Ml 3 Ml Pen) 0 unit SUBCUT TIDAC [facility]; Protocol Last Admin: 12/15/20 07:45 Dose: Not Given Documented by: Insulin Human NPH (Insulin Isophane Nph, Human 100 Units/Ml 10 Ml Vial) 30 unit SUBCUT BID [facility] Last Admin: 12/15/20 09:23 Dose: 30 units Documented by: Levofloxacin (Levofloxacin 750 Mg Tab) 750 mg PO Q24H [facility] Lisinopril (Lisinopril 10 Mg Tab) 10 mg PO DAILY [facility] Last Admin: 12/15/20 09:22 Dose: 10 mg Documented by: Morphine Sulfate (Morphine 2 Mg/Ml Syringe) 1 mg IVPUSH Q4H PRN PRN Reason: Pain (severe 7-10) Ondansetron HCl (Ondansetron 4 Mg/2 Ml Sdv) 4 mg IVPUSH Q4H PRN PRN Reason: Nausea/Vomiting Pantoprazole Sodium (Pantoprazole 40 Mg Tab.Cr) 40 mg PO ACBREAKFAST [facility] Last Admin: 12/15/20 07:46 Dose: 40 mg Documented by: Vancomycin HCl (Pharmacy To Dose - Vancomycin) 1 dose .XX ASDIRECTED [facility] Discontinued Medications Acetaminophen (Acetaminophen 325 Mg Tab) 650 mg PO Q4H PRN PRN Reason: Pain (Mild 1-3)/fever Atorvastatin Calcium (Atorvastatin 20 Mg Tab) 20 mg PO BEDTIME [facility] Last Admin: 12/10/20 20:41 Dose: 20 mg Documented by: Bupivacaine HCl (Bupivacaine 0.5% 30 Ml Sdv) Confirm Administered Dose 30 ml .ROUTE .STK-MED ONE Stop: 12/09/20 17:35 Cefazolin Sodium (Cefazolin 1 Gm Vial) Confirm Administered Dose 1 gm .ROUTE .STK-MED ONE Stop: 12/09/20 17:34 Dextrose/Water (50% Dextrose In Water 50 Ml Syringe) 50 ml IVPUSH ASDIRECTED PRN PRN Reason: Hypoglycemia Fentanyl (Fentanyl 100 Mcg/2 Ml Sdv) Confirm Administered Dose 100 mcg .ROUTE .STK-MED ONE Stop: 12/09/20 17:41 Glucagon (Glucagon,Human Recombinant 1 Mg Vial) 1 mg IM ASDIRECTED PRN PRN Reason: Hypoglycemia Glycopyrrolate (Glycopyrrolate 0.2 Mg/Ml Sdv) Confirm Administered Dose 0.2 mg .ROUTE .STK-MED ONE Stop: 12/09/20 17:44 Lactated Ringer's (Ringers, Lactated) 1,000 mls @ 999 mls/hr IV BOLUS ONE Stop: 12/08/20 22:11 Last Admin: 12/08/20 22:23 Dose: 999 mls/hr Documented by: Pantoprazole Sodium 40 mg/ (Sodium Chloride) 10 mls @ 300 mls/hr IV Q24H [facility] Last Admin: 12/13/20 05:24 Dose: Not Given Documented by: Piperacillin Sod/Tazobactam (Sod 3.375 gm/ Sodium Chloride) 50 mls @ 100 mls/hr IV Q8H [facility] Last Admin: 12/09/20 05:11 Dose: 100 mls/hr Documented by: Vancomycin HCl 1.5 gm/ Premix 300 mls @ 200 mls/hr IV ONETIME ONE Stop: 12/08/20 23:59 Last Admin: 12/09/20 00:27 Dose: 200 mls/hr Documented by: Vancomycin HCl 1.5 gm/ Premix 300 mls @ 200 mls/hr IV Q12H [facility] Last Admin: 12/11/20 12:34 Dose: 200 mls/hr Documented by: Piperacillin Sod/Tazobactam (Sod 4.5 gm/ Sodium Chloride) 100 mls @ 200 mls/hr IV Q6H [facility] Last Admin: 12/13/20 04:52 Dose: 200 mls/hr Documented by: Magnesium Sulfate 2 gm/ Premix 50 mls @ 12.5 mls/hr IV ONETIME ONE Stop: 12/10/20 13:09 Last Admin: 12/10/20 09:49 Dose: 12.5 mls/hr Documented by: Vancomycin HCl 1.25 gm/ Sodium (Chloride) 250 mls @ 166.667 mls/hr IV Q12H [facility] Last Infusion: 12/12/20 02:05 Dose: Infused Documented by: Magnesium Sulfate 4 gm/ Premix 100 mls @ 33.333 mls/hr IV ONETIME ONE Stop: 12/13/20 11:10 Last Admin: 12/13/20 09:14 Dose: 33.333 mls/hr Documented by: Piperacillin Sod/Tazobactam (Sod 4.5 gm/ Sodium Chloride) 100 mls @ 200 mls/hr IV Q6H [facility] Last Admin: 12/15/20 05:53 Dose: 200 mls/hr Documented by: Magnesium Sulfate 2 gm/ Premix 50 mls @ 25 mls/hr IV ONETIME ONE Stop: 12/15/20 09:58 Last Admin: 12/15/20 08:28 Dose: 25 mls/hr Documented by: Ketorolac Tromethamine (Ketorolac 30 Mg/Ml Sdv) Confirm Administered Dose 30 mg .ROUTE .STK-MED ONE Stop: 12/09/20 17:44 Lidocaine (Lidocaine 2% 5 Ml Sdv) Confirm Administered Dose 5 ml .ROUTE .STK-MED ONE Stop: 12/09/20 17:44 Lidocaine HCl (Lidocaine 1% 20 Ml Mdv) Confirm Administered Dose 20 ml .ROUTE .STK-MED ONE Stop: 12/09/20 17:35 Midazolam HCl (Midazolam 1 Mg/Ml 2 Ml Sdv) Confirm Administered Dose 2 mg .ROUTE .STK-MED ONE Stop: 12/09/20 17:41 Ondansetron HCl (Ondansetron 4 Mg/2 Ml Sdv) Confirm Administered Dose 4 mg .ROUTE .STK-MED ONE Stop: 12/09/20 17:44 Propofol (Propofol 200 Mg/20 Ml Sdv) Confirm Administered Dose 200 mg .ROUTE .STK-MED ONE Stop: 12/09/20 17:41 Propofol (Propofol 200 Mg/20 Ml Sdv) Confirm Administered Dose 200 mg .ROUTE .STK-MED ONE Stop: 12/09/20 18:09 Propofol (Propofol 200 Mg/20 Ml Sdv) Confirm Administered Dose 200 mg .ROUTE .STK-MED ONE Stop: 12/09/20 18:20
== END 2020-12-15 14:30 | disposition home or self-care (01) | DRG 314 ==
LOC: MW.MS 20:39
PROVIDERS: ADMIT Student in an Organized Health Care Education/Training Program; ATTEND Student in an Organized Health Care Education/Training Program
PROC: 0QBP0ZZ Excision of Left Metatarsal, Open Approach (ICD-10-PCS; principal; 2020-12-09)
PROC: 0J9R0ZZ Drainage of Left Foot Subcutaneous Tissue and Fascia, Open Approach (ICD-10-PCS; 2020-12-09)
DX: E11.621 Type 2 diabetes mellitus with foot ulcer (principal); L97.421 Non-pressure chronic ulcer of left heel and midfoot limited to breakdown of skin; L97.523 Non-pressure chronic ulcer of other part of left foot with necrosis of muscle; M86.9 Osteomyelitis, unspecified; E11.69 Type 2 diabetes mellitus with other specified complication; E83.42 Hypomagnesemia; E78.5 Hyperlipidemia, unspecified; E11.42 Type 2 diabetes mellitus with diabetic polyneuropathy; E66.9 Obesity, unspecified; H54.7 Unspecified visual loss; Z20.822 Contact with and (suspected) exposure to COVID-19; E78.00 Pure hypercholesterolemia, unspecified; I10 Essential (primary) hypertension; F32.9 Major depressive disorder, single episode, unspecified; M19.011 Primary osteoarthritis, right shoulder; B96.1 Klebsiella pneumoniae [K. pneumoniae] as the cause of diseases classified elsewhere; L03.115 Cellulitis of right lower limb; Z79.4 Long term (current) use of insulin; Z79.899 Other long term (current) drug therapy; Z68.38 Body mass index [BMI] 38.0-38.9, adult
CPT/HCPCS: 00400; 36415; 73718-26-LT; 73718-LT; 80048; 80202; 82947; 83735; 84100; 85025; 87070; 87075; 87205; A9270-GY; C9113; J0690; J1644; J1815-GY; J1885; J2250; J2405; J2543; J2704; J3010; J3370; J3475; J3490; J7050; J7120; U0002